=== PATIENT | female | born 1945 | race Caucasian/White ===

== ENCOUNTER 2019-02-14 09:55 | Outpatient (CLI) | payer MEDICARE, SELFPAY ==
[2019-02-14 10:20] LABS: HCT 35.7 % (36.0-46.0); HGB 11.3 g/dL (12.0-15.5); Mean Corp. HGB Concentration 31.7 g/dL (32.0-36.0); Mean Corpuscular Hemoglobin 29.5 pg (27.0-33.0); Mean Corpuscular Volume 93.2 fL (80-95); Mean Platelet Volume 10.3 fL (8.0-11.0); Platelet Count 160 x1000/uL (130-400); RBC 3.83 m/cumm (4.00-5.20); RBC Distribution Width 13.8 % (11.7-14.6); White Blood Cell Count 8.05 k/cumm (4.4-10.8)
[2019-02-14 10:34] LABS: Anion Gap 12.6 mmol/L (3-11); BUN 21 mg/dL (7-18); CO2 23.4 mmol/L (21.0-32.0); Calcium 9.6 mg/dL (8.5-10.1); Chloride 102 mmol/L (98-107); Cholesterol 212 mg/dL (50-200); Glucose 265 mg/dL (70-100); HDL Cholesterol 42 mg/dL (40-60); LDL CHOLESTEROL 140 mg/dL (<100); Potassium 4.7 mmol/L (3.5-5.1); Sodium 138 mmol/L (136-145); Triglyceride 287 mg/dL (30-150)
== END 2019-02-14 10:15 ==
PROVIDERS: PCP Specialist/Technologist Athletic Trainer; Visit Provider Specialist/Technologist Athletic Trainer
DX: E78.5 Hyperlipidemia, unspecified (principal); E11.9 Type 2 diabetes mellitus without complications; D64.9 Anemia, unspecified; I10 Essential (primary) hypertension
CPT/HCPCS: 36415; 80048; 80061; 83721; 85027

== ENCOUNTER 2020-11-24 09:35 | Outpatient (REF) | payer MEDICARE, SELFPAY ==
[2020-11-24 15:43] LABS: HCT 31.9 % (36.0-46.0); HGB 9.6 g/dL (11.2-15.7); MCHC 30.1 % (32.0-36.0); MCV 89.6 fL (80-95); MPV 10.6 fL (8.0-11.0); Platelet Count 203 10^3/uL (130-400); RBC 3.56 10^6/uL (3.93-5.22); RDW 14.6 % (11.7-14.6); RDW-SD 47.8 fL; WBC 8.34 10^3/uL (4.4-10.8)
[2020-11-24 16:25] LABS: Hemoglobin A1C 8.1 % (<5.7)
[2020-11-24 16:33] LABS: Anion Gap 9.8 mmol/L (3-11); BUN 21 mg/dL (7-18); CO2 26.2 mmol/L (21.0-32.0); CREATININE 1.1 mg/dL (0.55-1.02); Calcium 9.6 mg/dL (8.5-10.1); Calculated LDL 68 mg/dL (<100); Chloride 104 mmol/L (98-107); Cholesterol 144 mg/dL (<200); Estimated GFR 48.16 (mL/min/1.73m2); Glucose 168 mg/dL (74-106); HDL Cholesterol 50 mg/dL (40-60); Potassium 4.4 mmol/L (3.5-5.1); Sodium 140 mmol/L (136-145); Triglyceride 133 mg/dL (<150)
== END 2020-11-24 09:36 | disposition home or self-care (01) ==
LOC: NCHCN 09:35
PROVIDERS: PCP Specialist/Technologist Athletic Trainer; Visit Provider Nurse Practitioner Family
DX: D64.9 Anemia, unspecified (principal); I10 Essential (primary) hypertension; E78.5 Hyperlipidemia, unspecified
CPT/HCPCS: 80048; 80061; 85027; 83036

== ENCOUNTER 2021-03-17 02:34 | Outpatient (CLI) | payer MEDICARE, SELFPAY ==
[2021-03-17 10:57] LABS: Source Nasal/Nares
[2021-03-17 13:25] LABS: COVID-19 PCR Negative (Negative)
== END 2021-03-17 02:35 | disposition home or self-care (01) ==
PROVIDERS: PCP Specialist/Technologist Athletic Trainer; Visit Provider Nurse Practitioner
DX: Z20.822 Contact with and (suspected) exposure to COVID-19 (principal); Z01.818 Encounter for other preprocedural examination
CPT/HCPCS: 87635

== ENCOUNTER 2021-05-07 17:30 | Outpatient (REF) | payer MEDICARE, SELFPAY ==
[2021-05-07 19:19] LABS: CREATININE 1.4 mg/dL (0.55-1.02); Estimated GFR 36.46 (mL/min/1.73m2)
== END 2021-05-07 17:31 | disposition home or self-care (01) ==
LOC: NCHCN 17:30
PROVIDERS: PCP Specialist/Technologist Athletic Trainer; Visit Provider Nurse Practitioner Family
DX: C76.0 Malignant neoplasm of head, face and neck (principal)
CPT/HCPCS: 82565

== ENCOUNTER 2021-07-12 01:33 | Inpatient (IN) | payer MEDICARE, SELFPAY ==
[2021-07-12] VITALS (60 sets, daily range): BP systolic 112–219; BP diastolic 61–131; PULSE 80–115; RESP 4–45; TEMP 36.6–37.1; O2SAT 91–100
--- NOTE | 2021-07-12 01:15 | RT.EKG_ITS ---
APPROVED REPORT Exam: Resting ECG Reason for Exam: SOB Patient Location: E HR:98 bpm ECG Measurements Heart Rate 98 AXIS AR 167 P 69 QRSd 74 QRS 69 QT 356 T 51 QTc 457 Conclusion Sinus rhythm...normal P axis, V-rate 60- 99 Probable left atrial enlargement...P >50mS, <-0.10mV V1 Normal [place] No acute ST changes No STEMI
--- NOTE | 2021-07-12 01:46 | ED.GENADUL_ITS ---
Discharge Plan Disposition Patient Disposition: [facility] INPATIENT Condition: Poor Discharge Details Clinical Impression: Acute dyspnea, Pleural effusion, Anemia Primary Care Provider: Cameron Gaffney ED Provider: Laci Carrington [facility] Meds and New Rx's Prescriptions: No Action glipizide 10 mg Tablet 10 mg PO BID RF: 0 metoprolol succinate 100 mg Tablet Extended Release 24 Hr 100 mg PO DAILY RF: 0 citalopram 20 mg Tablet 30 mg PO DAILY RF: 0 simvastatin 20 mg Tablet 20 mg PO DAILY RF: 0 metformin 1,000 mg Tablet 1,000 mg PO BID RF: 0 Medical Decision Making Puzzling case in this older patient with history of squamous cell carcinoma of the scalp now presenting with difficulty breathing and what appears to be stridor as opposed to wheezing. No history of smoking or lung problems. reporting dyspnea with exertion for at least a couple of weeks. There is no report of fever or cough. Patient denies pain. Nothing obvious on exam in the neck but given the apparent stridor consider airway obstruction possibly from external source as patient denies throat pain, cough, choking. Does not strike me as allergic in nature given the intermittent episodes. Will establish IV and check labs, obtain EKG, CT of neck and chest, and treat stridor with racemic epi. Patient symptoms improved after racemic epinephrine. Laboratory studies significant for elevated white count with marked anemia. D-dimer positive but history from does not suggest PE. D-dimer likely elevated from other source. Troponin negative. Glucose elevated with history of diabetes. BNP elevated 1677 with no prior history of CHF or heart problems. CT scan of the neck shows enlarged left thyroid lobe with some deviation of the trachea but no significant compression. Chest CT showed bilateral effusions, groundglass opacit ies, increased interstitial markings of unclear etiology. Covid testing is pending the patient is immunized and denies fever or cough. Case discussed with hospitalist. Will assume PUI for now. We will also send procalcitonin. No antibiotics at this point. Lasix given interstitial markings and pleural effusions. Admit to hospital for further evaluation and management. Medical Records Medical records reviewed: Yes I reviewed the patient's medical records. Lab Data Lab results reviewed: Yes I reviewed the patient's lab results. ECG Data Attestation: I personally reviewed and interpreted this ECG (s) as follows: Prior ECG tracings: not available for review Interpretation: see EKG HPI General Mode of arrival: EMS . Date/Time Provider Initiated Documentation: 07/12/21 01:45 . Limitations to Documentation: physical limitation (dyspnea) . Information obtained by: patient, family, EMS and old records reviewed . HPI Narrative: Patient presents to ED with difficulty breathing. Patient initially states occurred over the course of today. Once is in room, he states patient has had intermittent and increasing episodes of shortness of breath with exertion for a few weeks now. Patient is undergoing radiation therapy for a squamous cell carcinoma removed from the scalp. She is not undergoing any chemotherapy. Lesion had been removed at [facility] earlier this year. She denies any history of smoking, asthma, shortness of breath. She denies any chest pain. She has no known coronary disease but does have diabetes, hypertension, hypercholesterolemia. She denies fever or cough. She has had some increased leg swelling but denies any leg pain and extend bilateral. She was treated with DuoNeb, albuterol, steroids in route and was feeling better. Now started to have difficulty breathing again. Related Data Home Medications Medication Instructions Recorded Confirmed citalopram 30 mg PO DAILY 07/12/21 07/12/21 glipizide 10 mg PO BID 07/12/21 07/12/21 metformin 1,000 mg PO BID 07/12/21 07/12/21 metoprolol succinate 100 mg PO DAILY 07/12/21 07/12/21 simvastatin 20 mg PO DAILY 07/12/21 07/12/21 Allergies Allergy/AdvReac Type Severity Reaction Status Date / Time No Known Allergies Allergy Unverified 07/12/21 04:13 Review of Systems Narrative: Unable to obtain due to respiratory difficulty [facility] Medical History (Updated 07/12/21 @ 05:48 by Laci Carrington MD) Breast cancer Diabetes mellitus HTN (hypertension) Hypercholesterolemia Squamous cell cancer of scalp and skin of neck Surgical History (Updated 07/12/21 @ 01:56 by Laci Carrington MD) S/P breast lumpectomy S/P skin and subcutaneous tissue surgery Social History Smoking risk assessment performed?: No Do you feel safe at home: Yes Do you feel safe in your relationship?: Yes Exam Narrative Exam Narrative: Const: Obese female in mild to moderate respiratory distress. HEENT: NC/AT. Normal facial exam. Eyes: Normal conjunctiva and sclera. Neck: Supple. Trachea appears midline but patient with short/thick neck. Lungs: Lungs sound clear but she has upper airway expiratory stridor. Cor: RRR without murmur/gallop. Good radial pulses. GI: Soft. NT/ND Neuro: A+O x 3. Normal speech, mentation. Cranial nerves II - XII grossly intact. No gross motor or sensory deficit. Ext: No C/C. 1+ BLE edema. No calf tenderness. Skin: Warm and dry without rash. Critical Care Time Critical Care Time Critical Care Time: Yes Total Critical Care Time: 45 Attestation: Upon my evaluation, this patient had a high probability of imminent or life- threatening deterioration, which required my direct attention, intervention, and personal management. I have personally provided 45 minutes of critical care time exclusive of time spent on separately billable procedures. Time includes review of laboratory data, radiology results, discussion with consultants, and monitoring for potential decompensation. Interventions were performed as documented above.
--- NOTE | 2021-07-12 02:07 | NUR.NOTE ---
Two unsuccessful attempts at IV starts in [facility].Nursing Note:
[2021-07-12] MEDS: EPINEPHrine for Inhalation 0.5 ML VIAL UPD (02:30)
--- NOTE | 2021-07-12 02:30 | DI.CT_ITS ---
Exam(s) CT NECK CHEST W EXAM: CT NECK CHEST W CLINICAL HISTORY: stridor/SOB TECHNIQUE: COMPARISON: No exams were available for comparison FINDINGS: CT SCAN SOFT TISSUES OF THE NECK WITH IV CONTRAST: Visualized paranasal sinuses are clear. No significant findings in the nasopharynx, oropharynx, and hypopharynx nor at the level of the vocal cords. The parotid and submandibular glands appear unremarkable. Thyroid gland: Abnormal. There is gross enlargement of the left thyroid lobe. This measures 4.5 cm AP by 4.5 cm wide by 5.5 cm craniocaudal. Enhancement in the lay enlarged left lobe is heterogeneous . The opposite-right thyroid lobe exhibits normal size as does most of the isthmus. The enlarged le ft thyroid lobe slightly deviates the trachea towards the opposite-right side as well as deviating th e left common carotid artery towards the left. However, this enlarged left lobe does not appear to b e invading surrounding structures and tissue planes. There is no significant lymphadenopathy in the neck and supraclavicular regions. CT SCAN OF THE CHEST WITH IV CONTRAST: INTERPRETATION IS LIMITED BY MOTION ARTIFACT Lungs: There are moderate-sized bilateral pleural effusions, right slightly larger than left. Mild and patchy ground-glass infiltrates. There is volume loss in the basal segments of both lower lobes due to the pleural effusions. Difficult to assess the trachea and mainstem bronchi due to the amount of respiratory motion artifact. Mediastinum: There is no obvious hilar nor mediastinal adenopathy. No axillary adenopathy. No supra clavicular adenopathy. Cardiac: Heart size upper normal. There is no pericardial effusion. Caliber of the thoracic aorta i s within normal limits. There is no dissection. Other: There are no adrenal masses. There is a small partially included cyst in the upper pole of th e left kidney which measures approximately 1 cm diameter. This is not completely included in the fie ld of view of this chest study. Osseous: No significant osseous lesions. No compression fractures. IMPRESSION: 1. Grossly enlarged left thyroid lobe with heterogeneous internal echotexture. Recommend follow-up t hyroid ultrasound. No obvious lymphadenopathy in the neck. 2. Interpretation lung ochoa is difficult because of motion artifact, however, there appear to be camp btle infiltrates. Also bilateral pleural effusions are noted of moderate size, right slightly larger than left. 3. No intrathoracic adenopathy noted. 4. Other findings as above.
[2021-07-12] MEDS: Sodium Chloride 0.9% for Inhalation 15 ML VIAL (02:31)
[2021-07-12 02:33] LABS: Absolute Basophil Count 0.05 10^3/uL (0.0-0.2); Absolute Eosinophil Count 0.09 10^3/uL (0.0-0.7); Absolute Lymphocyte Count 0.99 10^3/uL (1.2-3.4); Basophils % 0.3; Eosinophils % 0.5; HCT 27.6 % (36.0-46.0); HGB 7.6 g/dL (11.2-15.7); Immature Grans % 0.6; Lymphocytes % 5.7; MCH 22.1 pg (27.0-33.0); MCHC 27.5 % (32.0-36.0); MCV 80.2 fL (80-95); MPV 9.5 fL (8.0-11.0); Monocytes % 2.3; Neutrophils % 90.6; Nucleated RBC 0 %; Platelet Count 300 10^3/uL (130-400); RBC 3.44 10^6/uL (3.93-5.22); RDW 17.5 % (11.7-14.6); RDW-SD 50.7 fL
[2021-07-12 02:40] LABS: Absolute Neutrophil Count 15.67 10^3/uL (1.2-6.7)
[2021-07-12 02:41] LABS: Hypochromasia 2+; Microcytosis 1+
[2021-07-12 02:51] LABS: ALT 26 U/L (14-59); AST 19 U/L (15-37); Albumin 3.2 g/dL (3.4-5.0); Alkaline Phosphatase 148 U/L (46-116); Anion Gap 9.3 mmol/L (3-11); BUN 27 mg/dL (7-18); Bilirubin, Total 0.4 mg/dL (0.2-1.0); CO2 26.7 mmol/L (21.0-32.0); CREATININE 1.2 mg/dL (0.55-1.02); Calcium 9.3 mg/dL (8.5-10.1); Chloride 101 mmol/L (98-107); Estimated GFR 43.56 (mL/min/1.73m2); Glucose 391 mg/dL (74-106); Magnesium 1.9 mg/dL (1.8-2.4); NT-proBNP 1677 pg/mL (<300); Potassium 4.5 mmol/L (3.5-5.1); Sodium 137 mmol/L (136-145)
[2021-07-12 02:52] LABS: Troponin I < 0.05 ng/mL (<0.06)
[2021-07-12 03:05] LABS: D-Dimer 1069 ng/mlFEU (<500)
--- NOTE | 2021-07-12 03:58 | NUR.NOTE ---
To CT per cart with upstream biomanufacturing technician.Nursing Note:
--- NOTE | 2021-07-12 04:18 | NUR.NOTE ---
Returns from DINursing Note:
[2021-07-12] MEDS: Omnipaque 350 MG/ML 100 ML BTL IJ (04:32)
[2021-07-12 05:21] LABS: Source Nasal/Nares
--- NOTE | 2021-07-12 05:24 | DI.VRAD_ITS ---
PROCEDURE INFORMATION: Exam: CT Neck With Contrast Exam date and time: 07/12/2021 2:33 AM Age: 75 years old Clinical indication: Shortness of breath; Other: Stridor/sob; Additional info: Undergoing radiation therapy to scalp for squamous TECHNIQUE: Imaging protocol: Computed tomography images of the neck with contrast. 3D rendering (Not supervised by radiologist): MIP and/or 3D reconstructed images were created by the technologist. COMPARISON: No relevant prior studies available. FINDINGS: Nasopharynx: Unremarkable. Oropharynx: Unremarkable. No significant tonsillar enlargement. Hypopharynx: Unremarkable. Larynx: Unremarkable. Normal epiglottis. Retropharyngeal space: Unremarkable. Submandibular/Parotid glands: Normal. Glands are normal in size. Thyroid: Normal. No enlarged or calcified nodules. Lymph nodes: Unremarkable. No lymphadenopathy. Trachea: Prominent left lobe thyroid gland measures up to 4.8 by 4 cm and deviates the trachea to the right however does not significantly narrow the caliber of the trachea. Lungs: Unremarkable as visualized. Bones/joints: Unremarkable. No acute fracture. Soft tissues: Unremarkable. No significant soft tissue swelling. IMPRESSION: Prominent left lobe thyroid gland measures up to 4.8 by 4 cm and deviates the trachea to the right however does not significantly narrow the caliber of the trachea. PROCEDURE INFORMATION: Exam: CT Chest With Contrast; Diagnostic Exam date and time: 07/12/2021 2:33 AM Age: 75 years old Clinical indication: Shortness of breath; Other: Stridor/sob; Additional info: Undergoing radiation therapy to scalp for squamous TECHNIQUE: Imaging protocol: Diagnostic computed tomography of the chest with contrast. 3D rendering (Not supervised by radiologist): MIP and/or 3D reconstructed images were created by the technologist. COMPARISON: No relevant prior studies available. FINDINGS: Lungs: Patchy scattered ground-glass infiltrates may reflect micro atelectasis. Nonspecific pneumonia not excluded in the correct clinical setting. Septal thickening noted most evident at the lung bases may reflect interstitial edema. Pleural spaces: Moderate right and small to moderate left pleural effusion Heart: Unremarkable. No cardiomegaly. No pericardial effusion. Aorta: Unremarkable. No aortic aneurysm. Lymph nodes: Unremarkable. No enlarged lymph nodes. Bones/joints: Unremarkable. No acute fracture. Soft tissues: Extensive ductal calcifications noted right breast. Left breast not ideally visualized. Would recommend comparison with most recent mammography as initial follow-up. IMPRESSION: 1. Patchy scattered ground-glass infiltrates may reflect micro atelectasis. Nonspecific pneumonia not excluded in the correct clinical setting. 2. Septal thickening noted most evident at the lung bases may reflect interstitial edema. 3. Extensive ductal calcifications noted right breast. Left breast not ideally visualized. Would recommend comparison with most recent mammography as initial follow-up. Dictated and Authenticated by: Cameron Stevens MD. Ordering:MEHUL Aguero MD
--- NOTE | 2021-07-12 05:27 | NUR.NOTE ---
Patient spouse leaves for home. Patient resting with HOB elevated. Lights dimmed for comfort. Call light in reach.Nursing Note:
--- NOTE | 2021-07-12 05:44 | NUR.NOTE ---
Lab called to process additional ordersNursing Note:
--- NOTE | 2021-07-12 05:54 | W.PM.HP.N ---
Date of service: 07/12/21 Time of Service: 05:54 Assessment and Plan Assessment and plan (1) Acute CHF: Status: Acute Assessment and plan: Monitor on tele. Diurese, monitoring Cr, I/Os, daily weights. Low sodium diet. Check echo, venous dopplers. Unfortunately, her CT chest w/ contrast done in the ED does not clearly answer the question of PE. (2) Leucocytosis: Status: Acute Assessment and plan: No clear sign of infection. Procalcitonin is negative. Suspect steroid induced leucocytosis. Monitor off of steroids. No abx at this time. (3) Pleural effusion: Status: Acute Assessment and plan: Bilateral. Diurese - as above (4) Anemia: Status: Chronic Assessment and plan: Acute on chronic, partially dilutional. Heme negative in the ED. Check anemia studies. (5) Diabetes mellitus: Status: Chronic Assessment and plan: Hold oral agents. Cover with SSI (6) HTN (hypertension): Status: Chronic Assessment and plan: Continue home regimen (7) Hypercholesterolemia: Status: Chronic Assessment and plan: continue home statin (8) Squamous cell cancer of scalp and skin of neck: Status: Acute Assessment and plan: Nursing will inquire from home health re dressing changes (9) Abnormal finding on breast imaging: Status: Acute Assessment and plan: S/p R breast lumpectomy. Calcifications seen on CT imaging in ED. WIll need outpatient follow up with mammography. (10) DVT prophylaxis: Status: Acute Assessment and plan: hold chemical DVT ppx in light of anemia. TEDS/SCDs (11) Discharge planning issues: Status: Acute Assessment and plan: Full code History of Present Illness History of Present Illness Chief Complaint: shortness of breath Narrative: Ms Medrano is a 75 year old female with PMHx of squamous cell carcinoma of the scalp s/p excision/flap and currently receiving radiation therapy, as well as h/o breast cancer s/p lumpectomy, NIDDM2, hypertension, hyperlipidemia, and a thyroid nodule/goiter, who was brought in for [facility] ED by ambulance for shortness of breath. The patient had stated to the ED that the shortness of breath began yesterday, but her reminded her of the VILL[place] going on for several weeks. The patient notes leg edema x several days and admits to dietary indiscretion for salt. In the ED, she has been on 2-3 L of O2 by AK since arrival, currently saturating 98%. The patient was found to have a stridor and her difficulty breathing responded more to racemic epinephrine than to bronchodilators. Her labs have revealed a leucocytosis, worsening anemia with H/H of 7.6/27.6, down from 9.6/31.9 on 11/24/20 and an elevated proBNP. Her CT neck/chest showed a goiter which displaces but does not compress the trachea. Her CT chest shows groundglass opacities (PNA vs micro atelectasis), interstitial edema, bilateral pleural effusion, and extensive ductal calcifications of the right breast. She states that she has been feeling better since being diuresed in the ED. Hospitalist admission was requested. Review of Systems All systems reviewed & are unremarkable except as noted in HPI and below PFSH Medical History (Updated 07/12/21 @ 07:55 by Morena Orellana MD) Breast cancer Diabetes mellitus Goiter HTN (hypertension) Hypercholesterolemia Squamous cell cancer of scalp and skin of neck Surgical History (Updated 07/12/21 @ 01:56 by Laci Carrington MD) S/P breast lumpectomy S/P skin and subcutaneous tissue surgery Social History Smoking risk assessment performed?: No Do you feel safe at home: Yes Do you feel safe in your relationship?: Yes Meds Allergies and Home Medications Allergies Allergy/AdvReac Type Severity Reaction Status Date / Time No Known Allergies Allergy Unverified 07/12/21 04:13 Home Medications Medication Instructions Recorded Confirmed Type citalopram 30 mg PO DAILY 07/12/21 07/12/21 History glipizide 10 mg PO BID 07/12/21 07/12/21 History metformin 1,000 mg PO BID 07/12/21 07/12/21 History metoprolol succinate 100 mg PO DAILY 07/12/21 07/12/21 History simvastatin 20 mg PO DAILY 07/12/21 07/12/21 History Exam Narrative Exam Narrative: General: Pleasant elderly female, bald, does have increased work of breathing, but is able to complete sentences, A&Ox3 Neurological: A&Ox3, no focal deficits Psychiatric: Midly anxious Skin: Scalp graft appears to be healing well; dressing top of sary c/d/i HEENT: Atraumatic, EOMI, MMM, clear oropharynx, no submandibular or cervical lymphadenopathy, thyroid abnormality seen on CT cannot be appreciated visually on exam, no JVD Cardiovascular: RRR, mildly tachycardic, no m/r/g Lungs: Diminished breath sounds at B bases, but does sound somewhat wet in the mid-lung region Gastrointestinal: soft, nontender,nondistended Genitourinary: deferred Extremities: 2+ pitting edema BLE's, 2+ pedal pulses B, no clubbing/cyanosis Results Imaging Additional studies: CT neck: Prominent left lobe thyroid gland measures up to 4.8 by 4 cm and deviates the trachea to the right however does not significantly narrow the caliber of the trachea. CT chest: 1. Patchy scattered ground-glass infiltrates may reflect micro atelectasis. Nonspecific pneumonia not excluded in the correct clinical setting. 2. Septal thickening noted most evident at the lung bases may reflect interstitial edema. 3. Extensive ductal calcifications noted right breast. Left breast not ideally visualized. Would recommend comparison with most recent mammography as initial follow-up. Also, moderate right and small to moderate left pleural effusion. EKG: SR, HR 98, no acute ischemia Labs Result diagrams: 07/12/21 02:20 07/12/21 02:20 Labs: Laboratory Results - last 24 hr 07/12/21 07/12/21 07/12/21 02:20 02:20 02:20 WBC 17.30 H RBC 3.44 L Hgb 7.6 L Hct 27.6 L MCV 80.2 MCH 22.1 L MCHC 27.5 L RDW 17.5 H Plt Count 300 MPV 9.5 Immature Gran % 0.6 Neutrophils % 90.6 Lymphocytes % 5.7 Monocytes % 2.3 Eosinophils % 0.5 Basophils % 0.3 Nucleated RBC % 0 Absolute Neutrophils 15.67 H Absolute Lymphocytes 0.99 L Absolute Monocytes 0.40 Absolute Eosinophils 0.09 Absolute Basophils 0.05 RBC Morphology See Below Hypochromasia 2+ Microcytosis 1+ D-Dimer 1069 H Sodium 137 Potassium 4.5 Chloride 101 Carbon Dioxide 26.7 Anion Gap 9.3 BUN 27 H Creatinine 1.2 H Estimated GFR/1.73 m2 43.56 Glucose 391 H Calcium 9.3 Magnesium 1.9 Total Bilirubin 0.4 AST 19 ALT 26 Alkaline Phosphatase 148 H Troponin I < 0.05 NT-Pro-B Natriuret Pep 1677 H Total Protein 8.0 Albumin 3.2 L COVID-19 Source 07/12/21 04:50 WBC RBC Hgb Hct MCV MCH MCHC RDW Plt Count MPV Immature Gran % Neutrophils % Lymphocytes % Monocytes % Eosinophils % Basophils % Nucleated RBC % Absolute Neutrophils Absolute Lymphocytes Absolute Monocytes Absolute Eosinophils Absolute Basophils RBC Morphology Hypochromasia Microcytosis D-Dimer Sodium Potassium Chloride Carbon Dioxide Anion Gap BUN Creatinine Estimated GFR/1.73 m2 Glucose Calcium Magnesium Total Bilirubin AST ALT Alkaline Phosphatase Troponin I NT-Pro-B Natriuret Pep Total Protein Albumin COVID-19 Source Nasal/Nares Last Vital Signs Temp 37.1 C 07/12/21 01:35 Pulse 92 H 07/12/21 05:46 Resp 25 H 07/12/21 05:46 BP 180/72 H 07/12/21 05:46 Pulse Ox 98 07/12/21 05:46
[2021-07-12] MEDS: Furosemide 40 MG/4 ML VIAL IVP ×3 (05:59→16:49)
[2021-07-12 06:15] LABS: COVID-19 PCR Negative (Negative)
[2021-07-12 06:24] LABS: FREE T4 1.07 ng/dL (0.76-1.46); TSH 3.03 uIU/mL (0.36-3.74)
[2021-07-12 07:02] LABS: Procalcitonin < 0.1 ng/mL
[2021-07-12] MEDS: Normal Saline Flush 10 ML SYR IVP ×2 (09:32→16:49)
[2021-07-12] MEDS: Pantoprazole 40 MG VIAL IVP (09:33)
[2021-07-12] MEDS: Citalopram 20 MG TAB 30 MG PO (09:33)
[2021-07-12] MEDS: Metoprolol CR 100 MG TABCR PO (09:34)
[2021-07-12] MEDS: Simvastatin 20 MG TAB PO (09:34)
--- NOTE | 2021-07-12 09:58 | PDOC.CMIN ---
- If Service Date Differs Date of service: 07/12/21 Time of Service: 09:58 Care Management Initial Assess REASON FOR HOSPITALIZATION:: Acute CHF, Leucocytosis, Pleural effusion, Anemia PAST MEDICAL HISTORY/PAST SURGICAL HISTORY:: Medical History (Updated 07/12/21 @ 07:55 by Morena Orellana MD). Breast cancer. Diabetes mellitus. Goiter. HTN (hypertension). Hypercholesterolemia. Squamous cell cancer of scalp and skin of neck. Surgical History (Updated 07/12/21 @ 01:56 by Laci Carrington MD). S/P breast lumpectomy. S/P skin and subcutaneous tissue surgery PREVIOUS FUNCTIONAL STATUS/SOCIAL/FAMILY SUPPORTS:: Arlene lives in [place], [place] with her . She has not driven since her scalp surgery 4 months ago. Her is supportive of her healthcare needs and transports her to all her doctors appointments. Arlene currently has radiation at [facility] in [facility]. Her last appointment is scheduled for tomorrow morning at 0800, which will not work if she remains inpatient. CM will call [facility] in the morning and see if appointment can be rescheduled for a later date and/or time. CURRENT FUNCTIONAL STATUS:: Arlene was lying in bed when CM met with her. She was pleasant and easily engaged in conversation. She is scheduled for her last radiation treatment tomorrow at 0800 at [facility] and will need help changing that appointment time. She is hopeful she can stop in for radiation after she is discharged. Arlene also shares that she has a lot of medical debt despite having Medicare and asks if she can speak to anyone in entry level financial analyst. CM will make a referral to [facility] and continue to support discharge planning needs. ADVANCE DIRECTIVES:: None on file Has patient been provided with info about the portal/API?: Yes Did the patient sign up for the portal?: No CODE STATUS:: Full Code INSURANCE COVERAGE / FINANCIAL ISSUES:: Medicare PRIMARY CARE PHYSICIAN:: Cameron Gaffney POTENTIAL DISCHARGE NEEDS:: Referral to [facility] placed and recommend she speak to patient assistance at [facility] PATIENT/FAMILY EDUCATION NEEDS:: Review discharge instruction, limitations and plan to follow up with community providers. ask me three. TRANSPORTATION:: Via private vehicle with PLAN:: Anticipate Arlene will discharge home via private vehicle with family when medically cleared. Arlene will follow up with her PCP and discharge plan of care. CM will continue to follow discharge planning needs.
[2021-07-12 10:06] LABS: Glucose 428 mg/dL (74-106)
[2021-07-12] MEDS: Insulin Aspart 300 UNITS/3 ML PEN SC ×4 (10:22→21:54)
--- NOTE | 2021-07-12 11:54 | PT.INNT ---
PT Notes Visit Reasons: ACUTE CHF,PNEUMONIA,ANEMIA Patient declines PT consultation today, stating that she is just too tired. Will attempt consultation in the morning.
[2021-07-12 12:54] LABS: Glucose 409 mg/dL (74-106)
[2021-07-12] MEDS: Insulin Aspart 300 UNITS/3 ML PEN 10 UNITS SC (13:12)
[2021-07-12] MEDS: Insulin Glargine 300 UNITS/3 ML PEN 10 UNITS SC (21:55)
[2021-07-13] VITALS (10 sets, daily range): BP systolic 131–162; BP diastolic 75–110; PULSE 62–103; RESP 16–22; TEMP 36.3–36.9; O2SAT 92–97
--- NOTE | 2021-07-13 | DI.US_ITS ---
Exam(s) US EXTREMITY VENOUS BI EXAM: US EXTREMITY VENOUS BI CLINICAL HISTORY: edema BLE's TECHNIQUE: Grayscale, color, and doppler imaging of the deep venous system of both lower extremities was performed. COMPARISON: No exams were available for comparison FINDINGS: There is no evidence of intraluminal thrombus and there is normal compression and augmentation demons trated within the common femoral veins, femoral veins, and popliteal veins of both lower extremities. In the calves the interrogated veins also exhibit normal compression/ augmentation properties. The greater saphenous veins also appear patent as do the saphenofemoral junctions bilaterally.. IMPRESSION: 1. No ultrasound evidence of DVT in either lower extremity. DATA REPOSITORY:
[2021-07-13 07:20] LABS: Abs Immature Grans 0.09 10^3/uL (0.0-0.06); Absolute Basophil Count 0.03 10^3/uL (0.0-0.2); Absolute Eosinophil Count 0.08 10^3/uL (0.0-0.7); Absolute Lymphocyte Count 2.16 10^3/uL (1.2-3.4); Absolute Monocyte Count 0.84 10^3/uL (0.1-0.8); Absolute Neutrophil Count 12.58 10^3/uL (1.2-6.7); Basophils % 0.2; Eosinophils % 0.5; HCT 24.5 % (36.0-46.0); Immature Grans % 0.6; Lymphocytes % 13.7; MCH 22.2 pg (27.0-33.0); MCHC 28.2 % (32.0-36.0); MCV 78.8 fL (80-95); MPV 9.9 fL (8.0-11.0); Monocytes % 5.3; Neutrophils % 79.7; Nucleated RBC 0 %; Platelet Count 278 10^3/uL (130-400); RBC 3.11 10^6/uL (3.93-5.22); RDW 17.7 % (11.7-14.6); RDW-SD 50.7 fL; WBC 15.79 10^3/uL (4.4-10.8)
[2021-07-13 07:26] LABS: HGB 6.9 g/dL (11.2-15.7)
[2021-07-13 07:43] LABS: Iron 19 ug/dL (50-170); Total Iron Binding Capacity 301 ug/dL (250-450); Transferrin Sat 6 % (15-50)
[2021-07-13 08:03] LABS: Anion Gap 7.4 mmol/L (3-11); BUN 35 mg/dL (7-18); CO2 31.6 mmol/L (21.0-32.0); CREATININE 1.4 mg/dL (0.55-1.02); Calcium 9.7 mg/dL (8.5-10.1); Chloride 100 mmol/L (98-107); Estimated GFR 36.46 (mL/min/1.73m2); Ferritin 29 ng/mL (8-252); Folate 12.3 ng/mL (8.6-20.0); Glucose 175 mg/dL (74-106); Magnesium 1.9 mg/dL (1.8-2.4); Potassium 3.9 mmol/L (3.5-5.1); Sodium 139 mmol/L (136-145); Vitamin B12 300 pg/mL (193-986)
--- NOTE | 2021-07-13 08:24 | NUR.NOTE ---
Nursing Note: This RN called med-surg unit in this hospital on 07/13/2021 at 0825 and relayed that the patients COVID test came back negative
[2021-07-13] MEDS: Pantoprazole 40 MG VIAL IVP (09:03)
[2021-07-13] MEDS: Normal Saline Flush 10 ML SYR IVP ×2 (09:04→16:34)
[2021-07-13] MEDS: Furosemide 40 MG/4 ML VIAL IVP ×2 (09:04→16:34)
[2021-07-13] MEDS: Metoprolol CR 100 MG TABCR PO (09:05)
[2021-07-13] MEDS: Insulin Aspart 300 UNITS/3 ML PEN SC ×2 (09:05→12:01)
[2021-07-13] MEDS: Citalopram 20 MG TAB 30 MG PO (09:05)
[2021-07-13] MEDS: Simvastatin 20 MG TAB PO (09:05)
--- NOTE | 2021-07-13 09:53 | CMPROGNOTE_ITS ---
- If Service Date Differs Date of service: 07/13/21 Time of Service: 09:53 Care Management Progress Note S/O: Arlene was sitting up in bed when CM met with her. She is feeling good and having a good day. Arlene has concerns about her medical debt. CM gave pt financial assistance forms for [facility] and [facility]. In addition, Arlene met with RAMIREZ over the phone this morning to discuss insurance options. Arlene's last radiation appointment will be tomorrow at 0730 at [facility]. Her appointment will need to be rescheduled if she remains inpatient. CM continues to support. A: Arlene is a 75 year old female admitted to [facility] on 07/12/21 for Acute CHF, pneumonia, Anemia P: Anticipate Arlene will discharge home via private vehicle with family when medically cleared. Arlene will follow up with her PCP and discharge plan of care. CM will continue to follow discharge planning needs.
--- NOTE | 2021-07-13 10:04 | W.INDIABCONS ---
Date of service: 07/13/21 Time of Service: 10:04 Diabetes Inpatient Consult DESCRIPTION/ASSESSMENT: Ms. Wilder is admitted for SOB, VILLANUEVA. She is getting diuresed with lasix. Weight has gone down 10kg possibly unless one of the weights is inaccurate. Her BMI is 34.7kg/m2 c/w class 1 obesity. She does not take medications for diabetes at home. She is on Lantus and correction insulin here. Blood sugars coming down but still above target. Eating well on CHO consistent, heart healthy diet. INTERVENTION: Visited with Ms. Wilder about her diabetes. She says she knows what to do but doesn't always do it. She was very teary when I came in as she is concerned about why she is here in the hospital. I told her I would be sure to visit with her again before she leaves and we can review carbohydrate counting which may help her include more foods into her daily life which may help with her adherence on a regular basis. PLAN: Will review carbohydrate counting with Ms. Wilder prior to discharge. Will follow weight, PO, and blood sugars. Time Spent in Nutritional Counseling and Treatment: 5 minutes
[2021-07-13] MEDS: Normal Saline 500 ML 100 ML IV (12:16)
--- NOTE | 2021-07-13 14:16 | PHA.REVIEW ---
Pharmacy Admission Review - Admission Clinical Review (Last Updated 07/12/21 @ 06:03 by Morena Orellana MD) Leucocytosis (Acute) Acute CHF (Acute) Discharge planning issues (Acute) DVT prophylaxis (Acute) Abnormal finding on breast imaging (Acute) Acute dyspnea (Acute) Pleural effusion (Acute) Squamous cell cancer of scalp and skin of neck (Acute) No Known Allergies Allergy (Unverified 07/12/21 04:13) Resuscitation Status Full Code Height 5 ft 6.14 in Weight 97.8 kg - Renal Dosing Renal Dosing: BUN 35 mg/dL (7-18) H 07/13/21 06:30 Creatinine 1.4 mg/dL (0.55-1.02) H 07/13/21 06:30 Medications needing adjustments: Reviewed (Crcl ~39.7 mL/min using adjusted body weight. Current meds okay.) - Anticoagulation Anticoagulation: Hgb 6.9 g/dL (11.2-15.7) L* 07/13/21 06:30 Hct 24.5 % (36.0-46.0) L 07/13/21 06:30 Plt Count 278 10^3/uL (130-400) 07/13/21 06:30 Creatinine 1.4 mg/dL (0.55-1.02) H 07/13/21 06:30 DVT Prophylaxis: Reviewed (Chemical prophylaxis held due to anemia per H&P.) Therapeutic Anticoagulation: N/A - Opiate Usage Evaluate Pain Scale/Pains Meds: N/A - Relevant Labs Sodium 139 mmol/L (136-145) 07/13/21 06:30 Potassium 3.9 mmol/L (3.5-5.1) 07/13/21 06:30 Chloride 100 mmol/L (98-107) 07/13/21 06:30 Magnesium 1.9 mg/dL (1.8-2.4) 07/13/21 06:30 Electrolytes, C-Reactive P, ESR: Reviewed - DM Control DM Control: Glucose 175 mg/dL (74-106) H D 07/13/21 06:30 Finger Stick Blood Glucose 279 Finger Stick Blood Glucose 279 Finger Stick Blood Glucose 279 Finger Stick Blood Glucose 234 Finger Stick Blood Glucose 234 Finger Stick Blood Glucose 234 Insulin Dosing: Reviewed (Scheduled insulin glargine and sliding scale aspart ordered.) - Heart Failure/NJ Heart Failure/NJ: Troponin I < 0.05 ng/mL (<0.06) 07/12/21 02:20 NT-Pro-B Natriuret Pep 1677 pg/mL (<300) H 07/12/21 02:20 EF%, ÁNGEL's, B-Blockers, Diuretics: Reviewed - BP Control BP Control: Blood Pressure 146/77 Blood Pressure 131/75 Blood Pressure 136/77 Blood Pressure 144/86 Blood Pressure 162/110 Blood Pressure 159/80 If elevated: Reviewed (BP has been elevated most of admission so far. Has metoprolol and furosemide ordered.) - Qtc Review If Elevated: N/A (QTc 457 on admission.) - IV to PO Switch IV Medications: Reviewed - Home Meds Home Med List reviewed: Intervened (For patients >60 years of age, the maximum recommended dose of citalopram is 20 mg/day due to the risk of QT prolongation, will mention to provider.) Relevent Home Meds Not ordered & why?: glipizide, metformin - Current meds Current Medication Order Review: Reviewed - Comments Comments/Follow Ups: Watch BP, BG, SCr, H/H, and for med changes (renal dose adjustments, IV to PO).
--- NOTE | 2021-07-13 15:50 | PDOC.CMDIS ---
- If Service Date Differs Date of service: 07/13/21 Time of Service: 15:50 LACE Index Scoring Tool - Questions: Length of Stay (in days): 2 Acuity (Admit via E.D.?): Yes Comorbidities: Diabetes w/o Complication, Metastatic Solid Tumor E.D. Visits: 1 - Answers: Total Score: 11 Risk of Readmission: High Risk Care Management Discharge Reason for Hospitalization: Acute CHF, Leucocytosis, Pleural effusion, Anemia Discharge Plan: Discharge home with resumption of HH RN services via private vehicle with . Follow up with community providers and discharge plan of care. Patient/Family Education Needs: Review discharge instructions, limitations and plan to follow up with community providers. ask me three. Services Needed at Discharge: Home Health Care Services (Resumption HH RN Services)
--- NOTE | 2021-07-13 15:56 | DI.US_ITS ---
APPROVED REPORT EXAM: Comprehensive 2D, Doppler, and color-flow Echocardiogram Patient Location: In-Patient Room/Bed: 218 Exchange Operator: Robina Mina RDCS (AE) Indications: Acute CHF, HTN Other Information Study Quality: Fair. Technically limited study due to body habitus, inability to position patient. Conclusion Normal left ventricular wall thickness and chamber size. Estimated ejection fraction is 55 to 60%. Wall motion is normal Normal right ventricular size and systolic function Mildly dilated left atrium. Right atrium is normal in size Sclerotic trileaflet aortic valve without stenosis or regurgitation Moderate mitral annular calcification. Mild mitral regurgitation Normal tricuspid valve with trace regurgitation. Right ventricular systolic pressure could not be es timated Normal pulmonic valve with trace regurgitation Wall motion Left Ventricle The left ventricle is normal size. The left ventricular systolic function is normal. The left ventric ular ejection fraction is within the normal range. There is normal left ventricular wall thickness. T here is normal LV segmental wall motion. There is no ventricular septal defect visualized. LVEF is 55 -60%. Right Ventricle Right ventricle is grossly normal in size. Right ventricular systolic function is grossly normal. The RVSP is 42. mmHg. Atria Left atrium is mildly dilated. The right atrium size is normal. The interatrial septum is intact with no evidence for an atrial septal defect. Aortic Valve Aortic valve is calcified. Aortic valve is trileaflet. No hemodynamically significant valvular aortic stenosis. No aortic regurgitation is present. Mitral Valve Moderate mitral annular calcification. No evidence of mitral valve stenosis. Mild mitral regurgitatio n. Tricuspid Valve Tricuspid valve is grossly normal in structure and function. There is no tricuspid valve stenosis. Tr lindsey tricuspid regurgitation. Pulmonic Valve Pulmonic valve is not well visualized. There is no pulmonic valvular stenosis. Trace pulmonic regurgi tation. Great Vessels The aortic root is normal in size. The ascending aorta is normal in size. Aortic arch is normal in ca liber. The IVC collapses <50% with inspiration. Pericardium There is no pericardial effusion. 2D Dimensions IVSD d PLAX 1.05 cm F: 0.6-1.0 LV Vol A2C d MOD 88.2 mL LVPW d PLAX 1.06 cm F: 0.6 - 1.0 LV Vol A4C d MOD 94.1 mL LVID d PLAX 4.40 cm F: 3.8 - 5.2 LA vol/ BSA A2C s A-L 28.4 mL/m2 LVDs 3.20 cm F: 2.2 - 3.5 LA vol/ BSA A4C s A-L 33.4 mL/m2 Ao Root d 2.06 cm F: 2.7 - 3.3 LA Vol/ BSA Biplane s A-L 31.6 mL/m2 RA Area A4C 11.90 cm2 LA Area A4C s MOD 23.21 cm2 RA Vol/ BSA A4C s A-L 12.8 mL/m2 LA Area A2C s MOD 20.81 cm2 Ao Asc Diam d 3.12 cm F: 2.3 - 3.1 LV EF A4C MOD 50.0 % LV EF Teichholz 52.8 % LV EF A2C MOD 52.5 % LVEF (Stroud's) 50.27 % F: 54 - 74 LV EF Biplane MOD 50.3 % LV Volume 67.30 mL F: 46 - 106 SV 46.14 mL LV Volume Index 31.44 mL/m2 F: 29 - 61 SV Index 21.54 mL/m2 LV Vol Biplane MOD 91.8 mL FS 26.90 % M-Mode TAPSE 2.61 cm (M/F) >1.7 LV Diastology MV E' medial 0.104 (>0.07 m/s) E/A Ratio 1.3 LV E/e MED 11.45 (<14) MV E Vmax 1.19 (0.4-1.3 m/s) MV E' lateral 0.108 (>0.1 m/s) MV A Vmax 0.95 (0.4-1.3 m/s) LV E/e LAT 11.05 (<14) MV E/A Ratio 1.21 MV E/E' medial 11.47 MV E/E' lateral 11.08 Aortic Valve LVOT Area 2.60 cm2 AoV Area Vmax 1.50 cm2 LVOT Vmax 1.20 m/s AoV Area/ BSA (Vmax) 0.70 cm2/m2 LVOT Mean Saulo. 0.90 m/s TESHA Mean Saulo. 1.52 cm2 LVOT Peak Grad 5.8 mmHg TESHA Mean Saulo. Index 0.71 cm2/m2 LVOT Mean Grad 3.5 mmHg LVOT VTI 0.278 m LVOT Diam s 1.80 cm AoV Vmax 2.09 m/s Velocity Ratio 0.57 AoV Mean Saulo. 1.53 m/s AoV Peak Grad 17.5 mmHg LVOT SV 72.47 mL AoV Mean Grad 10.3 mmHg AoV VTI 0.485 m AoV Area VTI 1.49 cm2 AoV Area/ BSA (VTI) 0.70 cm/m2 Mitral Valve MV DT 170 (160-240 msec) MR Vmax 4.84 m/s MV PHT 49 msec MR VTI 1.549 m MV Area PHT 4.47 cm2 MR Peak Grad 93.7 mmHg MV VTI 0.308 m MR Mean Grad 79.2 mmHg MV VTI Annulus 0.296 m MV Area VTI 2.27 (4.0-6.0 cm2) Pulmonary Valve PV Vmax 1.15 (0.5-1.5 m/s) RVOT Peak Gr. 2.03 mmHg PV Peak Grad 5.3 mmHg RVOT Mean Gr. 0.90 mmHg PV Mean Grad 2.8 mmHg RVOT VTI 0.136 m PV VTI 0.223 m RVOT Vmax 0.71 m/s Tricuspid Valve TR Peak Grad 34.4 mmHg TR Vmax 2.93 m/s RA Pressure 8.00 mmHg RVSP (TR) 42.4 mmHg
--- NOTE | 2021-07-14 09:00 | NT_ITS ---
Date of service: 07/14/21 Time of Service: 09:00 PT Notes Visit Reasons: ACUTE CHF,PNEUMONIA,ANEMIA Patient was discharged from the hospital on 05/12/2021. No skilled PT services were provided for this admission. Thank you for the opportunity to participate in the care of this patient. Eneida Butcher PT, DPT, CLT [facility] [place], [place]
--- NOTE | 2021-07-14 15:37 | W.PM.DS.N ---
Date of service: 07/13/21 Time of Service: 12:38 DS: Diagnosis Discharge Diagnosis (1) Acute CHF: Status: Acute (2) Leucocytosis: Status: Acute (3) Pleural effusion: Status: Acute (4) Anemia: Status: Chronic (5) Diabetes mellitus: Status: Chronic (6) HTN (hypertension): Status: Chronic (7) Hypercholesterolemia: Status: Chronic (8) Squamous cell cancer of scalp and skin of neck: Status: Acute (9) Abnormal finding on breast imaging: Status: Acute (10) DVT prophylaxis: Status: Acute (11) Discharge planning issues: Status: Acute Discharge Plan Disposition Patient Disposition: HOME Condition: Poor Discharge Details Reason For Visit: ACUTE CHF,PNEUMONIA,ANEMIA Admit Date/Time: 07/12/21 05:44 Admit Provider: Morena Orellana Attending Provider: Morena Orellana Primary Care Provider: Cameron Gaffney Hospital Course Hospital Course: Ms Medrano is a 75 year old female with PMHx of squamous cell carcinoma of the scalp s/p excision/flap and currently receiving radiation therapy, as well as h/o breast cancer s/p lumpectomy, NIDDM2, hypertension, hyperlipidemia, and a thyroid nodule/goiter, who was brought in for [facility] ED by ambulance for shortness of breath. The patient had stated to the ED that the shortness of breath began yesterday, but her reminded her of the VILLANUEVA going on for several weeks. The patient notes leg edema x several days and admits to dietary indiscretion for salt. In the ED, she has been on 2-3 L of O2 by NC since arrival, currently saturating 98%. The patient was found to have a stridor and her difficulty breathing responded more to racemic epinephrine than to bronchodilators. Her labs have revealed a leucocytosis, worsening anemia with H/H of 7.6/27.6, down from 9.6/31.9 on 11/24/20 and an elevated proBNP. Her CT neck/chest showed a goiter which displaces but does not compress the trachea. Her CT chest shows groundglass opacities (PNA vs micro atelectasis), interstitial edema, bilateral pleural effusion, and extensive ductal calcifications of the right breast. She states that she has been feeling better since being diuresed in the ED. Leukocytosis likely d/t the steroid administered in the ED. WBC count decreased the following day. Procalcitonin was negative. With IV lasix her shortness of air and pedal edema resolved. Her hemoglobin did decrease to 6.9. She was transfused a unit of RBCs. She will continue lasix 20mg po every other day. Low Na diet stressed. She may need additional medication to manage her diabetes but she is very open about not being compliant with a low carb diet. Will resume home health with the addition of PT She has a PCP appt scheduled for 07/24. CBC on 07/15. Home Meds and New Rx's Prescriptions: New furosemide [Lasix] 20 mg tablet 20 mg PO Q OTHER DAY Qty: 15 RF: 0 Continued glipizide 10 mg Tablet 10 mg PO BID RF: 0 metoprolol succinate 100 mg Tablet Extended Release 24 Hr 100 mg PO DAILY RF: 0 citalopram 20 mg Tablet 30 mg PO DAILY RF: 0 simvastatin 20 mg Tablet 20 mg PO DAILY RF: 0 metformin 1,000 mg Tablet 1,000 mg PO BID RF: 0 Discharge Instructions Instructions: Low-Sodium Diet (DC) Stand Alone Forms: Nursing Discharge Form Referrals: Cameron Gaffney [Primary Care Provider] - (follow up as scheduled with PCP on 07/24) Activity:: Activity as Tolerated Equipment/Supplies:: No Equipment Needed Diet:: low carb and low Na Discharge Orders Discharge Orders: Discharge Order (Routine); Ordered 07/13/21 Ordered By: Mc Yu Other Ambulatory Orders: Complete Blood Count w/Diff (Routine) Location: None Selected Ordered By: Mc Yu Discharge Data Discharge Date/Time-TO BE ENTERED AT DEPARTURE: 07/13/21 17:04 DS: Summary Time Spent with Patient providing and/or coordinating discharge services: Greater than 30 minutes Status at Discharge Functional status at discharge: independent ambulation Overall status at discharge: patient is progressing back to baseline Mental Status: mental status grossly normal Speech and Movement: speech and movement normal Mood: congruent mood Affect: normal affect Exam Narrative Exam Narrative: General: Pleasant elderly female, bald, does have increased work of breathing, but is able to complete sentences, A&Ox3 Neurological: A&Ox3, no focal deficits Psychiatric: Midly anxious Skin: Scalp graft appears to be healing well; dressing top of sary c/d/i HEENT: Atraumatic, EOMI, MMM, clear oropharynx, no submandibular or cervical lymphadenopathy, thyroid abnormality seen on CT cannot be appreciated visually on exam, no JVD Cardiovascular: RRR, mildly tachycardic, no m/r/g Lungs: Diminished breath sounds at B bases but clear. Gastrointestinal: soft, nontender,nondistended Genitourinary: deferred Extremities: 2+ pitting edema BLE's, 2+ pedal pulses B, no clubbing/cyanosis Psych Mental Status: mental status grossly normal Speech and Movement: speech and movement normal Mood: congruent mood Affect: normal affect DS: Data Vitals/I&O Vitals and I&O: Vital Signs Temperature 36.4 C L 07/13/21 14:48 Temperature Source Tympanic 07/13/21 12:05 Pulse 80 07/13/21 14:48 Pulse Rhythm Regular 07/13/21 05:33 Pulse 88 07/12/21 06:32 Respiratory Rate 16 07/13/21 14:48 Respiratory Effort Non-Labored 07/13/21 15:58 Respiratory Depth Normal 07/13/21 15:58 Respiratory Pattern Normal 07/13/21 15:58 Blood Pressure 145/77 H 07/13/21 14:48 Blood Pressure Mean 82 07/12/21 06:32 Blood Pressure Position Sitting 07/12/21 01:35 Pulse Oximetry 93 07/13/21 14:48 Oxygen Delivery Method Room Air 07/13/21 14:48 Oxygen Flow Rate 0 07/13/21 14:48 Pain Level 0 07/13/21 08:31 Intake & Output 07/13/21 07/14/21 07/14/21 23:59 11:59 23:59 Intake Total 292 / 292 Balance 292 / -1008 Intake: Blood Product 292 / 292 Rbc Leuko Reduced Unit 292 / 292 [id number] [facility] Medical History (Updated 07/12/21 @ 07:55 by Morena Orellana MD) Breast cancer Diabetes mellitus Goiter HTN (hypertension) Hypercholesterolemia Squamous cell cancer of scalp and skin of neck Surgical History (Updated 07/12/21 @ 01:56 by Laci Carrington MD) S/P breast lumpectomy S/P skin and subcutaneous tissue surgery Social History Smoking risk assessment performed?: No Do you feel safe at home: Yes Do you feel safe in your relationship?: Yes
== END 2021-07-13 17:04 | disposition home or self-care (01) | DRG 293 ==
LOC: ER 05:54 → MS 06:40
PROVIDERS: Family Medicine; Admitting Provider Internal Medicine; Emergency Provider Emergency Medicine; PCP Specialist/Technologist Athletic Trainer; Visit Provider Internal Medicine
DX: I11.0 Hypertensive heart disease with heart failure (principal); I50.9 Heart failure, unspecified; D72.829 Elevated white blood cell count, unspecified; D64.9 Anemia, unspecified; E11.9 Type 2 diabetes mellitus without complications; E78.00 Pure hypercholesterolemia, unspecified; R92.1 Mammographic calcification found on diagnostic imaging of breast; C44.42 Squamous cell carcinoma of skin of scalp and neck; Z85.3 Personal history of malignant neoplasm of breast; E04.9 Nontoxic goiter, unspecified; Z20.822 Contact with and (suspected) exposure to COVID-19
CPT/HCPCS: 36415; 36416; 70491; 80048; 80053; 82947; 82962; 84145; 86850; 86900; 86901; 86920; 87635; 93005; 93306; 96372; 96374; 96375; 96376; 99291; 71260; 82607; 82728; 82746; 83540; 83550; 83735; 83880; 84439; 84443; 84484; 85025; 85379; 93010; 93970; 94640; 99223; 99239; J1940; J3490; P9016

== ENCOUNTER 2021-07-16 04:08 | Outpatient (CLI) | payer MEDICARE, SELFPAY ==
[2021-07-16 14:42] LABS: Abs Immature Grans 0.07 10^3/uL (0.0-0.06); Absolute Basophil Count 0.05 10^3/uL (0.0-0.2); Absolute Eosinophil Count 0.47 10^3/uL (0.0-0.7); Absolute Lymphocyte Count 1.89 10^3/uL (1.2-3.4); Absolute Monocyte Count 0.69 10^3/uL (0.1-0.8); Absolute Neutrophil Count 6.85 10^3/uL (1.2-6.7); Basophils % 0.5; Eosinophils % 4.7; HCT 30.1 % (36.0-46.0); HGB 8.5 g/dL (11.2-15.7); Immature Grans % 0.7; Lymphocytes % 18.9; MCH 22.1 pg (27.0-33.0); MCHC 28.2 % (32.0-36.0); MCV 78.4 fL (80-95); Monocytes % 6.9; Neutrophils % 68.3; Nucleated RBC 0 %; RBC 3.84 10^6/uL (3.93-5.22); RDW 17.2 % (11.7-14.6); RDW-SD 48.7 fL; WBC 10.02 10^3/uL (4.4-10.8)
[2021-07-16 15:00] LABS: Diff Comment Diff Reviewed
[2021-07-16 15:01] LABS: Hypochromasia 2+; Microcytosis 2+; Polychromasia Present
== END 2021-07-16 04:09 | disposition home or self-care (01) ==
PROVIDERS: PCP Specialist/Technologist Athletic Trainer; Visit Provider Family Medicine
DX: D64.9 Anemia, unspecified (principal)
CPT/HCPCS: 36415; 85025

== ENCOUNTER 2021-11-19 09:46 | Outpatient (REF) | payer MEDICARE, SELFPAY ==
[2021-11-19 12:42] LABS: HCT 29.2 % (36.0-46.0); HGB 8.4 g/dL (11.2-15.7); MCH 23.9 pg (27.0-33.0); MCHC 28.8 % (32.0-36.0); MPV 10.8 fL (8.0-11.0); Platelet Count 204 10^3/uL (130-400); RBC 3.52 10^6/uL (3.93-5.22); RDW 17.2 % (11.7-14.6); RDW-SD 51.9 fL; WBC 6.76 10^3/uL (4.4-10.8)
[2021-11-19 12:48] LABS: Anion Gap 11.8 mmol/L (3-11); BUN 22 mg/dL (7-18); CO2 23.2 mmol/L (21.0-32.0); CREATININE 1.2 mg/dL (0.55-1.02); Calcium 9.2 mg/dL (8.5-10.1); Chloride 104 mmol/L (98-107); Estimated GFR 43.45 (mL/min/1.73m2); Glucose 250 mg/dL (74-106); Potassium 4.8 mmol/L (3.5-5.1); Sodium 139 mmol/L (136-145)
[2021-11-19 13:13] LABS: Vitamin D 25 Total 8.1 ng/mL (30-100)
== END 2021-11-19 09:47 | disposition home or self-care (01) ==
LOC: NCHCN 09:46
PROVIDERS: PCP Nurse Practitioner Family; Visit Provider Nurse Practitioner Family
DX: E11.9 Type 2 diabetes mellitus without complications (principal); I10 Essential (primary) hypertension; F41.8 Other specified anxiety disorders; E55.9 Vitamin D deficiency, unspecified
CPT/HCPCS: 80048; 82306; 85027

== ENCOUNTER 2021-12-02 01:52 | Outpatient (CLI) | payer MEDICARE, SELFPAY ==
--- NOTE | 2021-12-02 | DI.CT_ITS ---
Exam(s) CT NECK W EXAM: CT NECK W CLINICAL HISTORY: SQUAMOUS CELL CA,C44.92,ASSESS FOR RECURRENCE,S/P SURGERY AND TREATMENT. TECHNIQUE: Imaging Protocol: Axial computed tomography images with coronal and sagittal reformatted images were created and reviewed. CONTRAST MATERIAL: Intravenous: Omnipaque 350 Contrast volume:40 mL COMPARISON: CT CT NECK CHEST W from 07/12/[address] HEAD WO/W from 12/02/2021 FINDINGS: Orbits and orbital soft tissues: Within normal limits. Visualized paranasal sinuses: There is opacification of a few ethmoid air cells. The remaining visu alized paranasal sinuses and mastoid air cells are clear. Nasopharynx: Within normal limits. Oropharynx: Within normal limits. Hypopharynx: Within normal limits. Larynx: Within normal limits. Retropharyngeal space: Within normal limits. Parotids/submandibular: Within normal limits. Thyroid gland: There is been increase in size of the left thyroid mass. It currently measures 5.2 t ransverse by 4.6 AP by 6.0 craniocaudad. This compares to 4.4 x 4.4 x 5.0 cm. It displaces the trac hea to the right. The right thyroid lobe is unremarkable. Lymphadenopathy: There is scattered lymph nodes seen along the level one to level three all measurin g less than 8 mm in short axis diameter which are physiologic in nature. Trachea: Tracheal deviation to the right secondary to the large left thyroid mass. Lung apices: Within normal limits. Bones: Within normal limits. Carotids/Jugular: Within normal limits. Soft tissues: Within normal limits. IMPRESSION: 1. Interval increase in size of left thyroid mass. 2. No other evidence of a cervical mass or adenopathy. RADIATION DOSE DELIVERED: Total DLP Total DLP DATA REPOSITORY: All CT scans at this facility are submitted to the National Radiology Data Registry (NRDR) Dose Index Registry (DIR) with the [employer] (ACR). RADIATION OPTIMIZATION: All CT scans at this facility use at least one of these dose optimization te chniques: automated exposure control; mA and/or kV adjustment per patient size (includes targeted exa ms where dose is matched to clinical indication); or iterative reconstruction.
--- NOTE | 2021-12-02 15:15 | DI.CT_ITS ---
Exam(s) CT HEAD WO/W EXAM: CT HEAD WO/W CLINICAL HISTORY: SQUAMOUS CELL CA,C44.92,ASSESS RECURRENCE,S/P SURG AND TREATMENT. TECHNIQUE: Imaging Protocol: Axial computed tomography images with coronal and sagittal reformatted images were created and reviewed. CONTRAST MATERIAL: Intravenous: Omnipaque 350 Contrast volume:60 mL COMPARISON: No priors for comparison. FINDINGS: Ventricles and Extra axial spaces: Normal in size and morphology for the patient's age. Hemorrhage: None. Cerebral parenchyma: There are areas of decreased attenuation in the white matter consistent with sma ll vessel ischemic disease. 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 No acute territor ial infarct is seen. No intracranial masses. Enhancement: No suspicious enhancement. [place]: Unremarkable. Midline shift: None. Brainstem/Cerebellum: Normal. Calvarium: Normal. Visualized Paranasal sinuses/Mastoids: Clear. Soft tissues: Several well-circumscribed nodules are seen in the subcutaneous tissues in the scalp. The largest measures 0.9 x 1.4 cm. IMPRESSION: 1. No intracranial mass or enhancing lesion to suggest intracranial metastatic disease. 2. Multiple subcutaneous nodules in the scalp. These may be benign lesions but metastatic disease ca nnot be excluded. Please correlate clinically. Biopsy may be considered for further evaluation. RADIATION DOSE DELIVERED: 1834.35 mGy.cm Total DLP DATA REPOSITORY: All CT scans at this facility are submitted to the National Radiology Data Registry (NRDR) Dose Index Registry (DIR) with the [employer] (ACR). RADIATION OPTIMIZATION: All CT scans at this facility use at least one of these dose optimization te chniques: automated exposure control; mA and/or kV adjustment per patient size (includes targeted exa ms where dose is matched to clinical indication); or iterative reconstruction.
[2021-12-02] MEDS: Omnipaque 350 MG/ML 100 ML BTL IJ (15:23)
== END 2021-12-02 02:12 ==
LOC: DI 01:53
PROVIDERS: PCP Nurse Practitioner Family; Visit Provider Preventive Medicine Undersea and Hyperbaric Medicine
DX: C44.42 Squamous cell carcinoma of skin of scalp and neck (principal); Z98.890 Other specified postprocedural states; R22.0 Localized swelling, mass and lump, head; E07.89 Other specified disorders of thyroid
CPT/HCPCS: 70491; 70470; 82565; J3490

== ENCOUNTER 2022-02-09 16:23 | Outpatient (REF) | payer MEDICARE, SELFPAY | END 2022-02-09 16:24 | disposition home or self-care (01) | LOC: NCHCN 16:23 | PROVIDERS: PCP Nurse Practitioner Family; Visit Provider Nurse Practitioner Family | DX: L29.8 Other pruritus; N89.8 Other specified noninflammatory disorders of vagina | CPT/HCPCS: 87480; 87510; 87660 ==

== ENCOUNTER 2022-02-18 19:43 | Outpatient (REF) | payer MEDICARE, SELFPAY ==
[2022-02-18 15:26] LABS: FREE T4 1.03 ng/dL (0.76-1.46); TSH 1.24 uIU/mL (0.36-3.74)
[2022-02-18 15:54] LABS: Hemoglobin A1C 9.8 % (<5.7)
[2022-02-18 16:08] LABS: Vitamin D 25 Total 13.8 ng/mL (30-100)
== END 2022-02-18 19:44 | disposition home or self-care (01) ==
LOC: NCHCN 19:43
PROVIDERS: PCP Nurse Practitioner Family; Visit Provider Nurse Practitioner Family
DX: E11.9 Type 2 diabetes mellitus without complications (principal); E04.9 Nontoxic goiter, unspecified; E55.9 Vitamin D deficiency, unspecified
CPT/HCPCS: 82306; 83036; 84439; 84443

== ENCOUNTER 2022-05-07 11:29 | Inpatient (IN) | payer MEDICARE, SELFPAY ==
[2022-05-07] VITALS (36 sets, daily range): BP systolic 118–162; BP diastolic 56–92; PULSE 76–144; RESP 11–31; TEMP 36.4–37; O2SAT 94–100
--- NOTE | 2022-05-07 11:30 | RT.EKG_ITS ---
APPROVED REPORT Exam: Resting ECG Reason for Exam: Dyspnea Patient Location: E HR:109 bpm ECG Measurements Heart Rate 109 AXIS MN [id number] P [id number] QRSd 73 QRS 47 QT 334 T 40 QTc 450 Conclusion Atrial fibrillation...? atrial activity Ventricular premature complex...V complex w/ short R-R interval Nonspecific repol abnormality, diffuse leads...ST dep, T flat/neg, ant/lat/inf
--- NOTE | 2022-05-07 11:57 | ED.GENADUL_ITS ---
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 She saw her pcp today and was found to be in afib which is new for her and she states they did a finger stick check of her blood count and was told she was anemic and was sent here. She denies fevers, chills, abdomen pain, chest pain, lightheadedness, dark stools. She arrives in afib with rates ranging from 110-120 and does appear pale. She has diminished breath sounds at the bases bilaterally, no wheezing, soft nontender abdomen. On bedside u/s she has normal appearing ef but is beating irregularly, no visible pericardial effusion, does have b lines in both lung ochoa. On rectal exam stool is brown and guiac negative. She states she has required transfusion in the past and thinks it was due to iron deficiency. Given her history, new onset afib, will obtian labs including cbc, cmp, troponin and also cxr. cxr shows mild interstitial prominence, no infiltrates,cbc shows hemoglobin of 5.7. She consents to transfusion, was given 2.5mg IVP lopressor for afib with rates in the 130's which she tolerated well. Discussed with hospitalist who accepts for admission Differential Diagnosis Differential Diagnosis: anemia, afib, electrolyte abnormality Medical Records Medical records reviewed: Yes I reviewed the patient's medical records. Imaging Data Radiologic Study: Attestation: I personally reviewed and interpreted this imaging study as follows: Imaging: X-Ray Radiologist's impression: FINDINGS: LUNGS: Mildly increased interstitial changes.? No over pulmonary edema.? No pneumothorax.? Question tiny right pleural effusion HEART: Mildly enlarged AORTA: Calcification at arch. BONES: Unremarkable for age.? Soft tissues: Unremarkable. IMPRESSION: Question tiny right pleural effusion.? Cardiomegaly. Lab Data Lab results reviewed: Yes I reviewed the patient's lab results. ECG Data Attestation: I personally reviewed and interpreted this ECG (s) as follows: Prior ECG tracings: available for review Interpretation: afib rate of109, no stemi HPI General Mode of arrival: ambulatory . Date/Time Provider Initiated Documentation: 05/07/22 11:30 . Limitations to Documentation: no limitations . Information obtained by: patient . History of Present Illness 76 year old F presents to the emergency department with the chief complaint of shortness of breath, described as moderate, Patient started experiencing this month(s) (1) and it has been constant. No relieving factors improve symptom(s), No exacerbating factors reported . Patient notes weakness. Patient did receive the following treatments prior to arrival, none Related Data Home Medications Medication Instructions Recorded Confirmed citalopram 20 mg tablet 30 mg PO DAILY 07/12/21 05/07/22 glipizide 10 mg tablet 10 mg PO BID 07/12/21 05/07/22 metformin 1,000 mg tablet 1,000 mg PO BID 07/12/21 05/07/22 metoprolol succinate 100 mg 150 mg PO DAILY 07/12/21 05/07/22 tablet,extended release 24 hr simvastatin 20 mg tablet 40 mg PO DAILY 07/12/21 05/07/22 aspirin 325 mg tablet 325 mg PO DAILY 05/07/22 05/07/22 chlorthalidone 25 mg tablet 12.5 mg PO DAILY 05/07/22 05/07/22 cholecalciferol (vitamin D3) 50 50 mcg PO DAILY 05/07/22 05/07/22 mcg (2,000 unit) tablet (Vitamin D3) ergocalciferol (vitamin D2) 1,250 1 cap PO DAILY 05/07/22 05/07/22 mcg (50,000 unit) capsule ferrous gluconate 324 mg (38 mg 324 mg PO BID 05/07/22 05/07/22 iron) tablet furosemide 20 mg tablet (Lasix) 40 mg PO DAILY 05/07/22 05/07/22 lisinopril 40 mg tablet 40 mg PO DAILY 05/07/22 05/07/22 mirtazapine 7.5 mg tablet 1 tab PO HS 05/07/22 05/07/22 potassium chloride 20 mEq 20 meq PO BID 05/07/22 05/07/22 tablet,extended release Allergies Allergy/AdvReac Type Severity Reaction Status Date / Time No Known Allergies Allergy Unverified 05/07/22 11:43 General Stated Complaint: SOB ZAKIA: 3 Review of Systems All systems reviewed & are unremarkable except as noted in HPI and below Constitutional Constitutional: Denies chills and Denies fever(s) Eyes Eyes: Denies loss of vision Cardiovascular Cardiovascular: Denies chest pain Respiratory Respiratory: Denies cough Gastrointestinal Gastrointestinal: Denies abdominal pain, Denies nausea and Denies vomiting Genitourinary Genitourinary: Denies dysuria Integumentary/Breasts Skin/Breast: Denies rash Neurologic Neurologic: Denies loss of vision PFSH All Active Problems (Updated 05/07/22 @ 14:52 by Patrick Medina MD) Anemia (Chronic) CHF (congestive heart failure) (Chronic) Atrial fibrillation with RVR (Acute) Atrial fibrillation (Chronic) Leucocytosis (Acute) Acute CHF (Acute) Discharge planning issues (Acute) DVT prophylaxis (Acute) Abnormal finding on breast imaging (Acute) Acute dyspnea (Acute) Pleural effusion (Acute) Anemia (Chronic) Squamous cell cancer of scalp and skin of neck (Acute) Hypercholesterolemia (Chronic) HTN (hypertension) (Chronic) Diabetes mellitus (Chronic) Medical History (Updated 05/07/22 @ 14:52 by Patrick Medina MD) Breast cancer Goiter Surgical History (Updated 07/12/21 @ 01:56 by Laci Carrington MD) S/P breast lumpectomy S/P skin and subcutaneous tissue surgery Social History Smoking/Tobacco Use Status: Never Smoking risk assessment performed?: Yes Alcohol Intake: never Drug use: Never Substance use type: does not use Do you feel safe at home: Yes Do you feel safe in your relationship?: Yes Exam Const General: no acute distress Orientation: alert HENMT Head: normal to inspection Ears: external ears normal General nose exam: external nose normal Mouth: moist mucous membranes Eyes General: appearance normal, both eyes and all related structures Neck Neck: normal visual inspection Resp Effort & Inspection: normal respiratory effort and able to speak in complete sentences Cardio Jugular venous pressure: no JVD Rhythm: abnormal rhythm GI Palpation: soft and nontender Skin General skin exam: no rashes or lesions noted Neuro General: patient alert and patient oriented x3 Extrem General: normal to inspection Psych Mental Status: mental status grossly normal Course Vital Signs Vital signs: Vital Signs Temperature 36.6 C 07/22/22 11:37 Pulse 129 H 05/07/22 11:37 Respiratory Rate 16 05/07/22 11:37 Pulse Oximetry 98 05/07/22 11:37 Temperature 36.6 C 05/07/22 11:37 Temperature Source Temporal Artery Scan 05/07/22 11:37 Pulse 129 H 05/07/22 11:37 Respiratory Rate 16 05/07/22 11:37 Respiratory Effort 05/07/22 11:44 Respiratory Depth Normal 05/07/22 11:44 Respiratory Pattern Normal 05/07/22 11:44 Blood Pressure Position Supine 05/07/22 11:37 Pulse Oximetry 98 05/07/22 11:37 Oxygen Delivery Method Room Air 05/07/22 11:37 Oxygen Flow Rate 0 05/07/22 11:37 Pain Level 0 05/07/22 11:37 Lab/Test Results Lab/Test Results: 05/07/22 11:31 Blood Blood Culture - Pending 05/07/22 11:31 Blood Blood Culture - Pending
[2022-05-07 12:15] LABS: Abs Immature Grans 0.03 10^3/uL (0.0-0.06); Absolute Basophil Count 0.02 10^3/uL (0.0-0.2); Absolute Eosinophil Count 0.04 10^3/uL (0.0-0.7); Absolute Lymphocyte Count 1.16 10^3/uL (1.2-3.4); Absolute Monocyte Count 0.47 10^3/uL (0.1-0.8); BE (Venous) -1 mmol/L (-2-3); Basophils % 0.2; Eosinophils % 0.4; HCO3 (Venous) 24 mmol/L (23-28); HCT 21.5 % (36.0-46.0); Immature Grans % 0.3; Lymphocytes % 12.4; MCH 19.6 pg (27.0-33.0); MCHC 26.5 % (32.0-36.0); MCV 74 fL (80-95); MPV 9.2 fL (8.0-11.0); Neutrophils % 81.7; O2 Sat (Venous) 75 %; Platelet Count 305 10^3/uL (130-400); RBC 2.91 10^6/uL (3.93-5.22); RDW-SD 48.3 fL; TCO2 (Venous) 23 mmol/L (24-29); WBC 9.32 10^3/uL (4.4-10.8); pCO2 (Venous) 38 mmHg (41-51); pH (Venous) 7.41 (7.31-7.41); pO2 (Venous) 42 mmHg
[2022-05-07 12:18] LABS: Source Nasal/Nares
--- NOTE | 2022-05-07 12:20 | DI.RAD_ITS ---
Exam(s) XR PORTABLE CHEST AP EXAM: XR PORTABLE CHEST AP CLINICAL HISTORY: shortness of breath TECHNIQUE: 2D digital imaging was performed. COMPARISON: CT CT NECK CHEST W from 07/12/2021 FINDINGS: LUNGS: Mildly increased interstitial changes. No over pulmonary edema. No pneumothorax. Question t iny right pleural effusion HEART: Mildly enlarged AORTA: Calcification at arch. BONES: Unremarkable for age. Soft tissues: Unremarkable. IMPRESSION: Question tiny right pleural effusion. Cardiomegaly. DATA REPOSITORY: RADIATION DOSE DELIVERED:
[2022-05-07 12:23] LABS: HGB 5.7 g/dL (11.2-15.7)
[2022-05-07 12:29] LABS: INR 1.2 (0.9-1.1); PTT Activated 27.7 sec (21.0-27.5); Prothrombin Time 12.1 sec (9.3-11.0)
[2022-05-07 12:32] LABS: Diff Comment RBC Morph Reviewed
[2022-05-07 12:33] LABS: Hypochromasia 1+; Microcytosis 1+; Polychromasia Present
[2022-05-07] MEDS: Furosemide 20 MG/2 ML VIAL IVP (12:34)
[2022-05-07 12:55] LABS: ALT 14 U/L (14-59); AST 16 U/L (15-37); Albumin 2.8 g/dL (3.4-5.0); Alkaline Phosphatase 124 U/L (46-116); Anion Gap 9.5 mmol/L (3-11); BUN 21 mg/dL (7-18); Bilirubin, Total 0.4 mg/dL (0.2-1.0); CO2 23.5 mmol/L (21.0-32.0); CREATININE 1.2 mg/dL (0.55-1.02); Calcium 9.4 mg/dL (8.5-10.1); Chloride 101 mmol/L (98-107); Estimated GFR 43.45 (mL/min/1.73m2); Glucose 219 mg/dL (74-106); Magnesium 1.8 mg/dL (1.8-2.4); NT-proBNP 4245 pg/mL (<300); Potassium 4.2 mmol/L (3.5-5.1); Sodium 134 mmol/L (136-145); Total Protein 7.6 g/dL (6.4-8.2); Troponin I < 50 ng/L (<or=60)
[2022-05-07 13:12] LABS: COVID-19 PCR Negative (Negative)
[2022-05-07 13:17] LABS: Bilirubin Negative (Negative); Blood Trace-intact (Negative); Clarity Cloudy (Clear); Glucose Negative (Negative); Ketones Negative (Negative); Leukocyte Esterase Small (Negative); Nitrite Negative (Negative); Urobilinogen 0.2 EU/dL (Up TO 0.2)
[2022-05-07 13:25] LABS: Bacteria Many HPF (Negative); C & S Indicated? Yes; Casts Negative LPF (Negative); Crystals Negative HPF (Negative); Epithelial Cells Rare HPF (Negative); Mucus Negative (Negative); Other Cells Few Transitional (Negative); RBC 0-2 HPF (0-2); WBC 20-50 HPF (0-5)
--- NOTE | 2022-05-07 13:25 | HPE_ITS ---
Date of service: 05/07/22 Time of Service: 13:25 Assessment and Plan Assessment and plan (1) Anemia: Status: Chronic Assessment and plan: stool negative for OB history of iron deficiency will transfuse 1-2 units of PRBC add iron studies. (2) Acute CHF: Status: Acute Assessment and plan: received IV lasix in the ED daily weights, I&O takes lasix 40 mg daily at home BNP 4200 echo from Jun 2021: Conclusion Normal left ventricular wall thickness and chamber size.? Estimated ejection fraction is 55 to 60%.? Wall motion is normal Normal right ventricular size and systolic function Mildly dilated left atrium.? Right atrium is normal in size Sclerotic trileaflet aortic valve without stenosis or regurgitation Moderate mitral annular calcification.? Mild mitral regurgitation Normal tricuspid valve with trace regurgitation.? Right ventricular systolic pressure could not be estimated Normal pulmonic valve with trace regurgitation (3) Diabetes mellitus: Status: Chronic Assessment and plan: A1C 9.8 in February 2022 diabetic diet with bs check ac/hs with coverage as needed. 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 Diabetes mellitus type: type 2 (4) HTN (hypertension): Status: Chronic Assessment and plan: on lisinipril, metoprolol, chlorthalidone will hold lisinopril at this time in case with need to increase BB for rate control, (5) Atrial fibrillation: Status: Chronic Assessment and plan: new diagnosis rate controlled after receiving 2.5 mg IV lopressor TSH 1.5 echo from Jun 2021: see above discussed with DR Juan History of Present Illness History of Present Illness Chief Complaint: shortness of breath Review of Systems All systems reviewed & are unremarkable except as noted in HPI and below Constitutional Constitutional: Denies fever(s) ENT Ears, Nose, Mouth, and Throat: Denies vertigo and Denies dizziness Cardiovascular Cardiovascular: Denies chest pain, Reports pedal edema (chronic), Reports dyspnea and Reports dyspnea on exertion Respiratory Respiratory: Denies chest congestion, Denies cough, Reports dyspnea, Reports dyspnea on exertion and Denies wheezing Gastrointestinal Gastrointestinal: Denies melena, Denies hematochezia, Denies diarrhea, Denies nausea, Denies vomiting and Denies hematemesis Musculoskeletal Musculoskeletal: Denies back pain and Denies arthralgias Neurologic Neurologic: Denies vertigo and Denies dizziness Allergic/Immunologic Allergic/Immunologic: Denies wheezing PFSH All Active Problems (Updated 05/07/22 @ 14:52 by Patrick Medina MD) Anemia (Chronic) CHF (congestive heart failure) (Chronic) Atrial fibrillation with RVR (Acute) Atrial fibrillation (Chronic) Leucocytosis (Acute) Acute CHF (Acute) Discharge planning issues (Acute) DVT prophylaxis (Acute) Abnormal finding on breast imaging (Acute) Acute dyspnea (Acute) Pleural effusion (Acute) Anemia (Chronic) Squamous cell cancer of scalp and skin of neck (Acute) Hypercholesterolemia (Chronic) HTN (hypertension) (Chronic) Diabetes mellitus (Chronic) Medical History (Updated 05/07/22 @ 14:52 by Patrick Medina MD) Breast cancer Goiter Surgical History (Updated 07/12/21 @ 01:56 by Laci Carrington MD) S/P breast lumpectomy S/P skin and subcutaneous tissue surgery Social History Smoking/Tobacco Use Status: Never Smoking risk assessment performed?: Yes Alcohol Intake: never Drug use: Never Substance use type: does not use Do you feel safe at home: Yes Do you feel safe in your relationship?: Yes Meds Allergies and Home Medications Allergies Allergy/AdvReac Type Severity Reaction Status Date / Time No Known Allergies Allergy Unverified 05/07/22 11:43 Home Medications Medication Instructions Recorded Confirmed Type citalopram 20 mg tablet 30 mg PO DAILY 07/12/21 05/07/22 History glipizide 10 mg tablet 10 mg PO BID 07/12/21 05/07/22 History metformin 1,000 mg tablet 1,000 mg PO BID 07/12/21 05/07/22 History metoprolol succinate 100 mg 150 mg PO DAILY 07/12/21 05/07/22 History tablet,extended release 24 hr simvastatin 20 mg tablet 40 mg PO DAILY 07/12/21 05/07/22 History aspirin 325 mg tablet 325 mg PO DAILY 05/07/22 05/07/22 History chlorthalidone 25 mg tablet 12.5 mg PO DAILY 05/07/22 05/07/22 History cholecalciferol (vitamin D3) 50 50 mcg PO DAILY 05/07/22 05/07/22 History mcg (2,000 unit) tablet (Vitamin D3) ergocalciferol (vitamin D2) 1,250 1 cap PO DAILY 05/07/22 05/07/22 History mcg (50,000 unit) capsule ferrous gluconate 324 mg (38 mg 324 mg PO BID 05/07/22 05/07/22 History iron) tablet furosemide 20 mg tablet (Lasix) 40 mg PO DAILY 05/07/22 05/07/22 History lisinopril 40 mg tablet 40 mg PO DAILY 05/07/22 05/07/22 History mirtazapine 7.5 mg tablet 1 tab PO HS 05/07/22 05/07/22 History potassium chloride 20 mEq 20 meq PO BID 05/07/22 05/07/22 History tablet,extended release Exam Const General: cooperative, comfortable, no acute distress and frail appearing Nutritional Appearance: obese Orientation: alert, awake and oriented x3 HENMT Head: other (old well healed surgical scar across top of head) Mouth: moist mucous membranes abnormal (slightly dry) Neck Neck: no JVD Resp Effort & Inspection: normal respiratory effort Auscultation: diminished lung sounds bilaterally and no wheezes Cardio Rate: regular rate Rhythm: regular rhythm GI Inspection: normal to inspection Palpation: soft Skin General skin exam: no rashes or lesions noted Neuro General: patient alert, patient awake and patient oriented x3 Extrem General: normal to inspection, full ROM and edema (lower) Laterality: bilateral Results Labs Result diagrams: 05/07/22 12:04 05/07/22 12:04 Labs: Laboratory Results - last 24 hr 05/07/22 05/07/22 05/07/22 12:04 12:04 12:04 WBC 9.32 RBC 2.91 L Hgb 5.7 L* Hct 21.5 L MCV 74 L MCH 19.6 L MCHC 26.5 L RDW 18.0 H Plt Count 305 MPV 9.2 Immature Gran % 0.3 Neutrophils % 81.7 Lymphocytes % 12.4 Monocytes % 5.0 Eosinophils % 0.4 Basophils % 0.2 Nucleated RBC % 0.0 Absolute Neutrophils 7.60 H Absolute Lymphocytes 1.16 L Absolute Monocytes 0.47 Absolute Eosinophils 0.04 Absolute Basophils 0.02 RBC Morphology See Below Polychromasia Present Hypochromasia 1+ Microcytosis 1+ PT 12.1 H INR 1.2 H APTT 27.7 H VBG pH VBG pCO2 VBG pO2 VBG HCO3 VBG Total CO2 VBG O2 Saturation VBG Base Excess Sodium 134 L Potassium 4.2 Chloride 101 Carbon Dioxide 23.5 Anion Gap 9.5 BUN 21 H Creatinine 1.2 H Estimated GFR/1.73 m2 43.45 Glucose 219 H Calcium 9.4 Magnesium 1.8 Total Bilirubin 0.4 AST 16 ALT 14 Alkaline Phosphatase 124 H Troponin I < 50 NT-Pro-B Natriuret Pep 4245 H Total Protein 7.6 Albumin 2.8 L TSH 1.50 Urine Color Urine Clarity Urine pH Ur Specific Blanchard Urine Protein Urine Ketones Urine Blood Urine Nitrite Urine Bilirubin Urine Urobilinogen Ur Leukocyte Esterase Urine Glucose COVID-19 Source SARS-CoV-2 (PCR) Patient ABO/Rh Antibody Screen Crossmatch 05/07/22 05/07/22 05/07/22 12:04 12:15 12:18 WBC RBC Hgb Hct MCV MCH MCHC RDW Plt Count MPV Immature Gran % Neutrophils % Lymphocytes % Monocytes % Eosinophils % Basophils % Nucleated RBC % Absolute Neutrophils Absolute Lymphocytes Absolute Monocytes Absolute Eosinophils Absolute Basophils RBC Morphology Polychromasia Hypochromasia Microcytosis PT INR APTT VBG pH 7.41 VBG pCO2 38 L VBG pO2 42 VBG HCO3 24 VBG Total CO2 23 L VBG O2 Saturation 75 VBG Base Excess -1 Sodium Potassium Chloride Carbon Dioxide Anion Gap BUN Creatinine Estimated GFR/1.73 m2 Glucose Calcium Magnesium Total Bilirubin AST ALT Alkaline Phosphatase Troponin I NT-Pro-B Natriuret Pep Total Protein Albumin TSH Urine Color Urine Clarity Urine pH Ur Specific [place] Urine Protein Urine Ketones Urine Blood Urine Nitrite Urine Bilirubin Urine Urobilinogen Ur Leukocyte Esterase Urine Glucose COVID-19 Source Nasal/Nares SARS-CoV-2 (PCR) Negative Patient ABO/Rh O Negative Antibody Screen NEGATIVE Crossmatch See Detail 05/07/22 13:05 WBC RBC Hgb Hct MCV MCH MCHC RDW Plt Count MPV Immature Gran % Neutrophils % Lymphocytes % Monocytes % Eosinophils % Basophils % Nucleated RBC % Absolute Neutrophils Absolute Lymphocytes Absolute Monocytes Absolute Eosinophils Absolute Basophils RBC Morphology Polychromasia Hypochromasia Microcytosis PT INR APTT VBG pH VBG pCO2 VBG pO2 VBG HCO3 VBG Total CO2 VBG O2 Saturation VBG Base Excess Sodium Potassium Chloride Carbon Dioxide Anion Gap BUN Creatinine Estimated GFR/1.73 m2 Glucose Calcium Magnesium Total Bilirubin AST ALT Alkaline Phosphatase Troponin I NT-Pro-B Natriuret Pep Total Protein Albumin TSH Urine Color Yellow Urine Clarity Cloudy Urine pH 7.0 Ur Specific [place]ard 1.020 Urine Protein Trace H Urine Ketones Negative Urine Blood Trace-intact H Urine Nitrite Negative Urine Bilirubin Negative Urine Urobilinogen 0.2 Ur Leukocyte Esterase Small H Urine Glucose Negative COVID-19 Source SARS-CoV-2 (PCR) Patient ABO/Rh Antibody Screen Crossmatch Last Vital Signs Temp 36.6 C 05/07/22 11:37 Pulse 89 05/07/22 12:32 Resp 20 05/07/22 12:32 BP 118/92 H 05/07/22 12:32 Pulse Ox 99 05/07/22 12:32
[2022-05-07] MEDS: Metoprolol 5 MG/5 ML VIAL 2.5 MG IVP (13:27)
[2022-05-07 14:10] LABS: Iron 12 ug/dL (50-170); Total Iron Binding Capacity 306 ug/dL (250-450); Transferrin Sat 4 % (15-50)
[2022-05-07] MEDS: Normal Saline Flush 10 ML SYR IVP ×2 (16:57→20:00)
[2022-05-07] MEDS: Insulin Aspart 300 UNITS/3 ML PEN SC ×2 (16:57→21:08)
[2022-05-07 17:12] LABS: Troponin I < 50 ng/L (<or=60)
[2022-05-07] MEDS: Ferrous Gluconate 324 MG TAB PO (20:00)
[2022-05-07] MEDS: Potassium Chloride 20 MEQ TABCR PO (20:00)
[2022-05-07] MEDS: Mirtazapine 15 MG TAB 7.5 MG PO (21:06)
[2022-05-08 03:40] VITALS: BP 138/81; PULSE 120; RESP 18; TEMP 36.9; O2SAT 94
[2022-05-08 04:27] VITALS: PULSE 127
[2022-05-08 07:00] VITALS: PULSE 110
[2022-05-08 07:01] VITALS: BP 149/92; PULSE 114; RESP 18; TEMP 36.8; O2SAT 98
[2022-05-08 07:42] LABS: Abs Immature Grans 0.03 10^3/uL (0.0-0.06); Absolute Basophil Count 0.02 10^3/uL (0.0-0.2); Absolute Eosinophil Count 0.15 10^3/uL (0.0-0.7); Absolute Lymphocyte Count 1.22 10^3/uL (1.2-3.4); Absolute Monocyte Count 0.59 10^3/uL (0.1-0.8); Absolute Neutrophil Count 5.99 10^3/uL (1.2-6.7); Basophils % 0.3; Eosinophils % 1.9; HCT 25.3 % (36.0-46.0); HGB 7.2 g/dL (11.2-15.7); Immature Grans % 0.4; Lymphocytes % 15.3; MCH 21.1 pg (27.0-33.0); MCHC 28.5 % (32.0-36.0); MCV 74 fL (80-95); MPV 9.5 fL (8.0-11.0); Monocytes % 7.4; Neutrophils % 74.7; Platelet Count 318 10^3/uL (130-400); RBC 3.42 10^6/uL (3.93-5.22); RDW 18.3 % (11.7-14.6); RDW-SD 48.4 fL
[2022-05-08 07:52] LABS: Anion Gap 10.3 mmol/L (3-11); BUN 20 mg/dL (7-18); CO2 23.7 mmol/L (21.0-32.0); CREATININE 1.1 mg/dL (0.55-1.02); Calcium 9.4 mg/dL (8.5-10.1); Chloride 99 mmol/L (98-107); Estimated GFR 48.04 (mL/min/1.73m2); Glucose 176 mg/dL (74-106); Sodium 133 mmol/L (136-145)
[2022-05-08 08:23] LABS: Anisocytosis 2+; Hypochromasia 2+
[2022-05-08 08:24] LABS: Diff Comment Agrees w/ Instrument; Microcytosis 1+; Polychromasia Present
[2022-05-08] MEDS: Citalopram 20 MG TAB 30 MG PO ×2 (08:50→10:11)
[2022-05-08] MEDS: Metoprolol CR 100 MG TABCR 150 MG PO (08:50)
[2022-05-08] MEDS: Insulin Aspart 300 UNITS/3 ML PEN SC ×2 (08:50→11:50)
[2022-05-08] MEDS: Chlorthalidone 25 MG TAB 12.5 MG PO (08:50)
[2022-05-08] MEDS: Potassium Chloride 20 MEQ TABCR PO (08:51)
[2022-05-08] MEDS: Ferrous Gluconate 324 MG TAB PO (08:51)
[2022-05-08] MEDS: Furosemide 20 MG TAB 40 MG PO (08:51)
[2022-05-08] MEDS: Cholecalciferol (Vitamin D3) 1,000 UNIT TAB 2000 UNITS PO (08:51)
--- NOTE | 2022-05-08 10:11 | PT.INNT ---
PT Notes Visit Reasons: Anemia,Heart Failure Patient discharged before evaluation could be completed.
[2022-05-08] MEDS: Fosfomycin Tromethamine 3 GM PACKET PO (11:46)
[2022-05-08] MEDS: IRON SUCROSE COMPLEX 300 MG in Normal Saline 250 ML 167 MG IVPB (12:02)
[2022-05-08] MEDS: Normal Saline 500 ML 100 ML IV (12:02)
--- NOTE | 2022-05-08 12:51 | W.PM.DS.N ---
Date of service: 05/08/22 Time of Service: 12:51 DS: Diagnosis Discharge Diagnosis (1) Anemia: Status: Chronic (2) Acute CHF: Status: Acute (3) Diabetes mellitus: Status: Chronic (4) HTN (hypertension): Status: Chronic (5) Atrial fibrillation: Status: Chronic Discharge Plan Disposition Patient Disposition: HOME W/HOME HEALTH SERVICE Condition: Stable Discharge Details Reason For Visit: Anemia,Heart Failure Admit Date/Time: 05/07/22 13:37 Admit Provider: Alonso Juan Attending Provider: Alonso Juan Primary Care Provider: Paula Andersanna Hospital Course Hospital Course: This is a 76 year old female with history congestive heart failure, iron deficient anemia who presents to the ED after being found to have new afib. Her work up in the ED showed a hemoglobin of 5.7 (previous was 8), she was having some shortness of breath and found to be in chf, likely from afib, she had no chest pain and 2 negative troponins. her TSH was normal at 1.5. echo was not available and she will need outpatient echocardiogram. I will defer anticoaguation with her for stroke prevention to pcp pending full evaluation for anemia, she will continue with full dose asa for now. She was diuresed with IV lasix in the ED with good effect, her lopressor was increased to 100 mg po bid from 150 daily. She will be referred to home health for close evaluation of vitals, labs to be check early next week, sooner for new or worsening symptoms. She is hemodynamically stable and requesting discharge which I think is reasonable with close follow up. Her and her both are informed and and attentive and will report issues. She will be referred to GI for anemia work up, cardiology for new afib, echo ordered. she was also found to have a UTI and received one dose of fosfomycin. she was asymptomatic. discharge discussed with DR Juan. Home Meds and New Rx's Prescriptions: Continued chlorthalidone 25 mg Tablet 12.5 mg PO DAILY ergocalciferol (vitamin D2) 1,250 mcg (50,000 unit) capsule 1 cap PO DAILY Label Comments: TAKE ONE CAPSULEPO ONCE A WEEK lisinopril 40 mg Tablet 40 mg PO DAILY mirtazapine 7.5 mg tablet 1 tab PO HS Label Comments: Take 1 tablet by mouth every night ferrous gluconate 324 mg (38 mg iron) Tablet 324 mg PO BID cholecalciferol (vitamin D3) [Vitamin D3] 50 mcg (2,000 unit) Tablet 50 mcg PO DAILY potassium chloride 20 mEq Tablet Extended Release 20 meq PO BID furosemide [Lasix] 20 mg tablet 40 mg PO DAILY aspirin 325 mg Tablet 325 mg PO DAILY glipizide 10 mg Tablet 10 mg PO BID citalopram 20 mg Tablet 30 mg PO DAILY simvastatin 20 mg Tablet 40 mg PO DAILY metformin 1,000 mg Tablet 1,000 mg PO BID Changed metoprolol succinate 100 mg Tablet Extended Release 24 Hr 100 mg PO BID Qty: 0 0RF Discontinued aspirin 325 mg Tablet 325 mg PO DAILY Discharge Instructions Instructions: Anemia (DC) Additional Instructions: have your lab drawn on Tuesday or Tuesday, May 10 or 2021 Your received one unit of packed red blood cells for your anemia. your hemoglobin is up to 7.2. Your iron was also very low at 12, you received IV iron infusion prior to discharge. you should check with your [facility] care provider if addition iron infusions will be needed. you should continue your full dose aspirin and discuss blood thinner (anticoagulation) with primary care provider for stroke prevention from atrial fibrillation. you may need further work up for your anemia before starting a blood thinner, your primary care provider will decide as this will require close monitoring. Stand Alone Forms: Nursing Discharge Form Referrals: [facility] Diagnostic Imaging [Other] (Please call Tuesday to schedule appointment) Yesica Vega MD [ [facility] STAFF PHYSICIAN] - (Please call Tuesday to make an appointment for new afib) Geovanna Anders [Primary Care Provider] - (Please call Tuesday to make a follow up appointment.) Amy Roblero MD [ [facility] STAFF PHYSICIAN] - (Please call Tuesday to make an appointment for an anemia work up) Activity:: Activity as Tolerated Equipment/Supplies:: No Equipment Needed Diet:: As Tolerated Discharge Orders Discharge Orders: Discharge Order (Routine); Ordered 05/08/22 Ordered By: Natacha No Other Ambulatory Orders: Basic Metabolic Panel (Routine) Location: None Selected Ordered By: Natacha No Complete Blood Count w/Diff (Routine) Location: None Selected Ordered By: Natacha No echocardiogram (Routine) Timeframe: 1 Week Location: None Selected Ordered By: Natacha No Discharge Data Discharge Date/Time-TO BE ENTERED AT DEPARTURE: 05/08/22 15:49 DS: Summary Time Spent with Patient providing and/or coordinating discharge services: Greater than 30 minutes Status at Discharge Functional status at discharge: independent ambulation Overall status at discharge: patient is progressing back to baseline Mental Status: mental status grossly normal Speech and Movement: speech and movement normal Mood: congruent mood Affect: normal affect Exam Const General: cooperative, comfortable, no acute distress and frail appearing Nutritional Appearance: obese Orientation: alert, awake and oriented x3 HENMT Head: other (old well healed surgical scar across top of head) Mouth: moist mucous membranes abnormal (slightly dry) Neck Neck: no JVD Resp Effort & Inspection: normal respiratory effort Auscultation: diminished lung sounds bilaterally and no wheezes Cardio Rate: regular rate GI Inspection: normal to inspection Palpation: soft Skin General skin exam: no rashes or lesions noted Neuro General: patient alert, patient awake and patient oriented x3 Extrem General: normal to inspection, full ROM and edema (lower) Laterality: bilateral Psych Mental Status: mental status grossly normal Speech and Movement: speech and movement normal Mood: congruent mood Affect: normal affect DS: Data Vitals/I&O Vitals and I&O: Vital Signs Temperature 36.8 C 05/08/22 07:01 Temperature Source Tympanic 05/08/22 07:01 Pulse 114 H 05/08/22 07:01 Pulse Rhythm Irregular 05/08/22 07:40 Pulse 126 H 05/07/22 14:02 Respiratory Rate 18 05/08/22 07:01 Respiratory Effort Non-Labored 05/08/22 07:40 Respiratory Depth Normal 05/08/22 07:40 Respiratory Pattern Normal 05/08/22 07:40 Blood Pressure 149/92 H 05/08/22 07:01 Blood Pressure Mean 83 05/07/22 14:02 Blood Pressure Position Supine 05/07/22 11:37 Pulse Oximetry 98 05/08/22 07:01 Oxygen Delivery Method Room Air 05/08/22 07:01 Oxygen Flow Rate 0 05/08/22 07:01 Pain Level 0 05/08/22 07:40 Comment 05/08/22 07:40 Intake & Output 05/07/22 05/08/22 05/08/22 23:59 11:59 23:59 Intake Total 300 / 300 360 / 361.667 1.667 / 361.667 Output Total 2650 / 2650 650 / 950 300 / 950 Balance -2350 / -2350 -290 / -588.333 -298.333 / -588.333 Weight 102.9 kg Intake: IV 1.667 / 1.667 Oral 360 / 360 Blood Product 300 / 300 Rbc Leuko Reduced Unit 300 / 300 [id number] Output: Urine 2650 / 2650 650 / 950 300 / 950 Other: Urine Color Yellow Pale Pale Yellow Urine Appearance Clear Clear Clear Cloudy Urine Odor Normal Normal None Comment Void x1 in the toilet. Voiding Methods Bedside Commode Toilet Toilet Data Completed and Pending Labs on day of discharge: Labs from last 24 hours 05/08/22 05/08/22 05/07/22 06:30 06:30 16:46 WBC 8.00 RBC 3.42 L Hgb 7.2 L Hct 25.3 L MCV 74 L MCH 21.1 L MCHC 28.5 L RDW 18.3 H Plt Count 318 MPV 9.5 Immature Gran % 0.4 Neutrophils % 74.7 Lymphocytes % 15.3 Monocytes % 7.4 Eosinophils % 1.9 Basophils % 0.3 Nucleated RBC % 0.0 Absolute Neutrophils 5.99 Absolute Lymphocytes 1.22 Absolute Monocytes 0.59 Absolute Eosinophils 0.15 Absolute Basophils 0.02 RBC Morphology See Below Polychromasia Present Hypochromasia 2+ Anisocytosis 2+ Microcytosis 1+ Sodium 133 L Potassium 4.0 Chloride 99 Carbon Dioxide 23.7 Anion Gap 10.3 BUN 20 H Creatinine 1.1 H Estimated GFR/1.73 m2 48.04 Glucose 176 H Calcium 9.4 Magnesium Iron TIBC Transferrin % Sat Total Bilirubin AST ALT Alkaline Phosphatase Troponin I < 50 NT-Pro-B Natriuret Pep Total Protein Albumin TSH Urine Color Urine Clarity Urine pH Ur Specific Lantry Urine Protein Urine Ketones Urine Blood Urine Nitrite Urine Bilirubin Urine Urobilinogen Ur Leukocyte Esterase Urine RBC Urine WBC Ur Epithelial Cells Urine Crystals Urine Bacteria Urine Casts Urine Mucus Urine Other Ur Culture Indicated? Urine Glucose SARS-CoV-2 (PCR) Patient ABO/Rh Antibody Screen Crossmatch 05/07/22 05/07/22 05/07/22 13:05 12:18 12:15 WBC RBC Hgb Hct MCV MCH MCHC RDW Plt Count MPV Immature Gran % Neutrophils % Lymphocytes % Monocytes % Eosinophils % Basophils % Nucleated RBC % Absolute Neutrophils Absolute Lymphocytes Absolute Monocytes Absolute Eosinophils Absolute Basophils RBC Morphology Polychromasia Hypochromasia Anisocytosis Microcytosis Sodium Potassium Chloride Carbon Dioxide Anion Gap BUN Creatinine Estimated GFR/1.73 m2 Glucose Calcium Magnesium Iron TIBC Transferrin % Sat Total Bilirubin AST ALT Alkaline Phosphatase Troponin I NT-Pro-B Natriuret Pep Total Protein Albumin TSH Urine Color Yellow Urine Clarity Cloudy Urine pH 7.0 Ur Specific Lantry 1.020 Urine Protein Trace H Urine Ketones Negative Urine Blood Trace-intact H Urine Nitrite Negative Urine Bilirubin Negative Urine Urobilinogen 0.2 Ur Leukocyte Esterase Small H Urine RBC 0-2 Urine WBC 20-50 H Ur Epithelial Cells Rare Urine Crystals Negative Urine Bacteria Many Urine Casts Negative Urine Mucus Negative Urine Other Few Transitional Ur Culture Indicated? Yes Urine Glucose Negative SARS-CoV-2 (PCR) Negative Patient ABO/Rh O Negative Antibody Screen NEGATIVE Crossmatch See Detail 05/07/22 05/07/22 12:04 12:04 WBC RBC Hgb Hct MCV MCH MCHC RDW Plt Count MPV Immature Gran % Neutrophils % Lymphocytes % Monocytes % Eosinophils % Basophils % Nucleated RBC % Absolute Neutrophils Absolute Lymphocytes Absolute Monocytes Absolute Eosinophils Absolute Basophils RBC Morphology Polychromasia Hypochromasia Anisocytosis Microcytosis Sodium 134 L Potassium 4.2 Chloride 101 Carbon Dioxide 23.5 Anion Gap 9.5 BUN 21 H Creatinine 1.2 H Estimated GFR/1.73 m2 43.45 Glucose 219 H Calcium 9.4 Magnesium 1.8 Iron 12 L TIBC 306 Transferrin % Sat 4 L Total Bilirubin 0.4 AST 16 ALT 14 Alkaline Phosphatase 124 H Troponin I < 50 NT-Pro-B Natriuret Pep 4245 H Total Protein 7.6 Albumin 2.8 L TSH 1.50 Urine Color Urine Clarity Urine pH Ur Specific Lantry Urine Protein Urine Ketones Urine Blood Urine Nitrite Urine Bilirubin Urine Urobilinogen Ur Leukocyte Esterase Urine RBC Urine WBC Ur Epithelial Cells Urine Crystals Urine Bacteria Urine Casts Urine Mucus Urine Other Ur Culture Indicated? Urine Glucose SARS-CoV-2 (PCR) Patient ABO/Rh Antibody Screen Crossmatch 05/07/22 13:10 Blood Blood Culture - Pending 05/07/22 12:04 Blood Blood Culture - Pending Preliminary micro results at discharge 05/07/22 13:05 Urine Culture - Preliminary Urine - Reflex from Ua Escherichia coli 05/07/22 13:10 Blood Culture - Pending Blood 05/07/22 12:04 Blood Culture - Pending Blood [facility] All Active Problems (Updated 05/07/22 @ 14:52 by Patrick Medina MD) Anemia (Chronic) CHF (congestive heart failure) (Chronic) Atrial fibrillation with RVR (Acute) Atrial fibrillation (Chronic) Leucocytosis (Acute) Acute CHF (Acute) Discharge planning issues (Acute) DVT prophylaxis (Acute) Abnormal finding on breast imaging (Acute) Acute dyspnea (Acute) Pleural effusion (Acute) Anemia (Chronic) Squamous cell cancer of scalp and skin of neck (Acute) Hypercholesterolemia (Chronic) HTN (hypertension) (Chronic) Diabetes mellitus (Chronic) Medical History (Updated 05/07/22 @ 14:52 by Patrick Medina MD) Breast cancer Goiter Surgical History (Updated 07/12/21 @ 01:56 by Laci Carrington MD) S/P breast lumpectomy S/P skin and subcutaneous tissue surgery Social History Smoking/Tobacco Use Status: Never Smoking risk assessment performed?: Yes Alcohol Intake: never Drug use: Never Substance use type: does not use Do you feel safe at home: Yes Do you feel safe in your relationship?: Yes
[2022-05-08 13:35] VITALS: PULSE 89
--- NOTE | 2022-05-08 14:03 | PDOC.HHF2F_ITS ---
Home Health Certification Home Health Certification: 1. Encounter Date and Reason I certify that Arlene Medrano was seen by Natacha No on 05/08/22 and that I had a [id number] encounter with this patient that meets the physician face to face encounter requirements. 2. Clinical Findings Supporting Skilled Need and Homebound Status I certify that home health services are medically necessary, include either intermittent fdc and/or physical/speech therapy, and that this pat ient is homebound in that absences from the home require considerable and taxing effort and are infrequent or of short duration, or are attributable to the need to receive medical care. [X] (a) Attached documentation from encounter provides clinical findings supporting skilled need and homebound status (including what assistance patient requires to leave the home). The encounter with the patient was in whole, or in part, for the following medical condition, which is the primary reason for home health care: Anemia,Heart Failure, new atrial fibrillation Halfway: routine nursing evaluation, vitals, weights, medication oversight, Physical and occupational Therapy: routine evaluation, home safety, treatment Homebound: patient is unable to safely leave the house unassisted d/t severely limiting shortness of breath and fatigue. 3. Certification and Authentication I certify that I composed the above information based on my clinical judgment relating to this patient's medical condition and, if applicable, clinical findings communicated to me by the NPP or inpatient physician who performed the Home Health Referral. All further orders will be obtained through _[facility] - PCP)
[2022-05-08] MEDS: Normal Saline Flush 10 ML SYR IVP (14:09)
--- NOTE | 2022-05-11 09:37 | NUR.NOTE ---
Called pt to confirm that she understood discharge instructions regarding her aspirin. Advised that she is to continue taking the aspirin 325mg daily. Pt repeated I am to take the aspirin 325mg. Nursing Note:
== END 2022-05-08 15:49 | disposition home health service (06) | DRG 310 ==
LOC: ER 14:02 → MS 14:21
PROVIDERS: Nurse Practitioner Acute Care; Admitting Provider Internal Medicine; Emergency Provider Emergency Medicine; PCP Nurse Practitioner Family; Visit Provider Internal Medicine
DX: I48.91 Unspecified atrial fibrillation (principal); D50.9 Iron deficiency anemia, unspecified; I11.0 Hypertensive heart disease with heart failure; E78.5 Hyperlipidemia, unspecified; Z85.828 Personal history of other malignant neoplasm of skin; R53.1 Weakness; Z79.84 Long term (current) use of oral hypoglycemic drugs; I50.9 Heart failure, unspecified; D72.829 Elevated white blood cell count, unspecified; E78.00 Pure hypercholesterolemia, unspecified; E11.9 Type 2 diabetes mellitus without complications; I08.0 Rheumatic disorders of both mitral and aortic valves
CPT/HCPCS: 36415; 36430; 80048; 80053; 82805; 86850; 86900; 86901; 86920; 87040; 87077; 87635; 93005; 96374; 96375; 99285; 71045; 81003; 81015; 83540; 83550; 83735; 83880; 84443; 84484; 85025; 85610; 85730; 87086; 87186; 93010; 99217; 99223; 99238; J1756; J1941; J3490; P9016

== ENCOUNTER 2022-05-11 11:58 | Outpatient (CLI) | payer MEDICARE, SELFPAY ==
[2022-05-11 11:53] LABS: Abs Immature Grans 0.05 10^3/uL (0.0-0.06); Absolute Basophil Count 0.02 10^3/uL (0.0-0.2); Absolute Eosinophil Count 0.23 10^3/uL (0.0-0.7); Absolute Lymphocyte Count 1.31 10^3/uL (1.2-3.4); Absolute Monocyte Count 0.65 10^3/uL (0.1-0.8); Absolute Neutrophil Count 6.01 10^3/uL (1.2-6.7); Basophils % 0.2; Eosinophils % 2.8; HCT 25.4 % (36.0-46.0); HGB 7.2 g/dL (11.2-15.7); Immature Grans % 0.6; Lymphocytes % 15.8; MCH 21.9 pg (27.0-33.0); MCHC 28.3 % (32.0-36.0); MCV 77 fL (80-95); MPV 9.7 fL (8.0-11.0); Monocytes % 7.9; Neutrophils % 72.7; Platelet Count 306 10^3/uL (130-400); RBC 3.29 10^6/uL (3.93-5.22); RDW 20.3 % (11.7-14.6); RDW-SD 51.8 fL; WBC 8.27 10^3/uL (4.4-10.8)
[2022-05-11 12:08] LABS: Anisocytosis 2+; Diff Comment Diff Reviewed; Hypochromasia 2+
[2022-05-11 12:27] LABS: Anion Gap 9.3 mmol/L (3-11); BUN 17 mg/dL (7-18); CO2 25.7 mmol/L (21.0-32.0); CREATININE 1.1 mg/dL (0.55-1.02); Calcium 9.4 mg/dL (8.5-10.1); Chloride 99 mmol/L (98-107); Estimated GFR 48.04 (mL/min/1.73m2); Glucose 165 mg/dL (74-106); NT-proBNP 2449 pg/mL (<300); Potassium 4.1 mmol/L (3.5-5.1); Sodium 134 mmol/L (136-145)
== END 2022-05-11 11:59 | disposition home or self-care (01) ==
PROVIDERS: PCP Nurse Practitioner Family; Visit Provider Nurse Practitioner Family
DX: I50.9 Heart failure, unspecified (principal); I48.91 Unspecified atrial fibrillation
CPT/HCPCS: 36415; 80048; 83880; 85025

== ENCOUNTER 2022-05-28 00:48 | Outpatient (RCR) | payer MEDICARE, SELFPAY ==
[2022-05-21] MEDS: Normal Saline Flush 10 ML SYR IVP (11:17)
[2022-05-21] MEDS: IRON SUCROSE COMPLEX 300 MG in Normal Saline 250 ML 176.667 MG IVPB (11:18)
[2022-05-28] MEDS: Normal Saline Flush 10 ML SYR IVP (08:01)
[2022-05-28] MEDS: IRON SUCROSE COMPLEX 300 MG in Normal Saline 250 ML 176.667 MG IVPB (08:01)
== END 2022-06-16 23:59 | disposition home or self-care (01) ==
LOC: INF 00:48
PROVIDERS: PCP Nurse Practitioner Family; Visit Provider Nurse Practitioner Acute Care
DX: D50.9 Iron deficiency anemia, unspecified (principal)
CPT/HCPCS: 96365; 96366; J1756

== ENCOUNTER 2022-07-26 01:39 | Outpatient (CLI) | payer MEDICARE, SELFPAY | END 2022-07-26 01:59 | LOC: DI 01:39 | PROVIDERS: PCP Nurse Practitioner Family; Visit Provider Preventive Medicine Undersea and Hyperbaric Medicine | CPT/HCPCS: 82565 ==

== ENCOUNTER 2022-08-11 02:21 | Outpatient (CLI) | payer MEDICARE, SELFPAY ==
--- NOTE | 2022-08-11 07:34 | DI.US_ITS ---
APPROVED REPORT EXAM: Comprehensive 2D, Doppler, and color-flow Echocardiogram Patient Location: Out-Patient Piece Worker: Robina Mina RDCS (AE) Indications: Atrial fibrillation Other Information Study Quality: Adequate Conclusion Normal left ventricular wall thickness and chamber size. Estimated ejection fraction is 60 to 65%. Wall motion is normal Normal right ventricular size and systolic function Both atria are normal in size Aortic valve is sclerotic and trileaflet without stenosis or regurgitation Mild mitral annular calcification. Mild mitral regurgitation Normal tricuspid valve with mild regurgitation. Estimated right ventricular systolic pressure is 25 mmHg Wall motion Left Ventricle The left ventricle is normal size. The left ventricular systolic function is normal. The left ventric ular ejection fraction is within the normal range. There is normal left ventricular wall thickness. T here is normal LV segmental wall motion. There is no ventricular septal defect visualized. LVEF is 60 -65%. Right Ventricle The right ventricle is normal size. The right ventricular systolic function is normal. The RVSP is 24 .8mmHg. Atria The left atrium size is normal. The right atrium size is normal. The interatrial septum is intact wit h no evidence for an atrial septal defect. Aortic Valve The Aortic valve is sclerotic. Aortic valve is trileaflet. There is no aortic valvular stenosis. No a ortic regurgitation is present. Mitral Valve Mild mitral annular calcification. No evidence of mitral valve stenosis. Mild mitral regurgitation. Tricuspid Valve The tricuspid valve is normal in structure. There is no tricuspid valve stenosis. Trace tricuspid reg urgitation. Pulmonic Valve The pulmonary valve is normal in structure. There is no pulmonic valvular stenosis. There is no pulmo franky valvular regurgitation. Great Vessels The aortic root is normal in size. The ascending aorta is normal in size. Aortic arch is normal in ca liber. IVC is normal in size and collapses >50% with inspiration. Pericardium There is no pericardial effusion. 2D Dimensions IVSD d PLAX 0.81 cm F: 0.6-1.0 LV Vol A2C d MOD 75.3 mL LVPW d PLAX 0.81 cm F: 0.6 - 1.0 LV Vol A4C d MOD 89.9 mL LVID d PLAX 4.08 cm F: 3.8 - 5.2 LA vol/ BSA A2C s A-L 20.6 mL/m2 LVDs 2.80 cm F: 2.2 - 3.5 LA vol/ BSA A4C s A-L 31.5 mL/m2 Ao Root d 2.29 cm F: 2.7 - 3.3 LA Vol/ BSA Biplane s A-L 27.0 mL/m2 RA Area A4C 11.19 cm2 LA Area A4C s MOD 20.70 cm2 RA Vol/ BSA A4C s A-L 12.0 mL/m2 LA Area A2C s MOD 15.82 cm2 Ao Asc Diam d 3.18 cm F: 2.3 - 3.1 LV EF A4C MOD 57.5 % LV EF Teichholz 58.4 % LV EF A2C MOD 58.0 % LVEF (Stroud's) 57.83 % F: 54 - 74 LV EF Biplane MOD 57.8 % LV Volume 62.69 mL F: 46 - 106 SV 48.19 mL LV Volume Index 31.66 mL/m2 F: 29 - 61 SV Index 24.31 mL/m2 LV Vol Biplane MOD 83.3 mL FS 30.40 % M-Mode TAPSE 3.15 cm (M/F) >1.7 LV Diastology MV E' medial 0.104 (>0.07 m/s) E/A Ratio 1.4 LV E/e MED 9.95 (<14) MV E Vmax 1.04 (0.4-1.3 m/s) MV E' lateral 0.087 (>0.1 m/s) MV A Vmax 0.75 (0.4-1.3 m/s) LV E/e LAT 11.95 (<14) MV E/A Ratio 1.32 MV E/E' medial 9.99 MV E/E' lateral 11.96 Aortic Valve LVOT Area 2.63 cm2 AoV Area Vmax 1.50 cm2 LVOT Vmax 1.19 m/s AoV Area/ BSA (Vmax) 0.75 cm2/m2 LVOT Mean Saulo. 0.85 m/s TESHA Mean Saulo. 1.43 cm2 LVOT Peak Grad 5.7 mmHg TESHA Mean Saulo. Index 0.72 cm2/m2 LVOT Mean Grad 3.3 mmHg LVOT VTI 0.298 m LVOT Diam s 1.80 cm AoV Vmax 2.09 m/s Velocity Ratio 0.56 AoV Mean Saulo. 1.56 m/s AoV Peak Grad 17.5 mmHg LVOT SV 78.34 mL AoV Mean Grad 10.5 mmHg AoV VTI 0.523 m AoV Area VTI 1.50 cm2 AoV Area/ BSA (VTI) 0.76 cm/m2 Mitral Valve MV DT 209 (160-240 msec) MV PHT 60 msec MV Area PHT 3.64 cm2 Pulmonary Valve PV Vmax 0.90 (0.5-1.5 m/s) RVOT Peak Gr. 3.01 mmHg PV Peak Grad 3.2 mmHg RVOT Mean Gr. 1.50 mmHg PV Mean Grad 2.0 mmHg RVOT VTI 0.212 m PV VTI 0.206 m RVOT Vmax 0.87 m/s Tricuspid Valve TR Peak Grad 21.7 mmHg TR Vmax 2.33 m/s RA Pressure 3.00 mmHg RVSP (TR) 24.8 mmHg
== END 2022-08-11 02:41 ==
LOC: DI 02:21
PROVIDERS: PCP Nurse Practitioner Family; Visit Provider Nurse Practitioner Family
DX: I48.91 Unspecified atrial fibrillation (principal)
CPT/HCPCS: 93306

== ENCOUNTER 2022-12-30 08:44 | Outpatient (CLI) | payer MEDICARE, SELFPAY ==
--- NOTE | 2022-12-30 08:30 | RT.EKG_ITS ---
APPROVED REPORT Exam: Resting ECG Reason for Exam: afib Patient Location: O HR:115 bpm ECG Measurements Heart Rate 115 AXIS MI 159 P 74 QRSd 68 QRS 24 QT 310 T 54 QTc 429 Conclusion Sinus tachycardia Otherwise normal
== END 2022-12-30 08:45 | disposition home or self-care (01) ==
LOC: DI.CARD 08:45
PROVIDERS: PCP Nurse Practitioner Family; Visit Provider Internal Medicine Cardiovascular Disease
DX: I48.91 Unspecified atrial fibrillation (principal); I50.9 Heart failure, unspecified; R00.0 Tachycardia, unspecified
CPT/HCPCS: 93010

== ENCOUNTER → 2022-12-30 13:41 | Outpatient (BNVA) | payer MEDICARE, SELFPAY | PROVIDERS: PCP Nurse Practitioner Family; Referring Provider Nurse Practitioner Family; Visit Provider Internal Medicine Cardiovascular Disease | DX: I48.91 Unspecified atrial fibrillation (principal); I50.9 Heart failure, unspecified; I10 Essential (primary) hypertension; D64.9 Anemia, unspecified | CPT/HCPCS: 93005; 99203; 99213 ==

== ENCOUNTER 2023-02-17 15:20 | Outpatient (REF) | payer MEDICARE, SELFPAY ==
[2023-02-17 16:39] LABS: Abs Immature Grans 0.03 10^3/uL (0.0-0.06); Absolute Basophil Count 0.05 10^3/uL (0.0-0.2); Absolute Eosinophil Count 0.22 10^3/uL (0.0-0.7); Absolute Lymphocyte Count 1.74 10^3/uL (1.2-3.4); Absolute Monocyte Count 0.35 10^3/uL (0.1-0.8); Absolute Neutrophil Count 6.03 10^3/uL (1.2-6.7); Basophils % 0.6; Eosinophils % 2.6; HCT 32.5 % (36.0-46.0); HGB 10.2 g/dL (11.2-15.7); Immature Grans % 0.4; Lymphocytes % 20.7; MCH 28.6 pg (27.0-33.0); MCHC 31.4 % (32.0-36.0); MCV 91 fL (80-95); MPV 10.7 fL (8.0-11.0); Monocytes % 4.2; Neutrophils % 71.5; Platelet Count 227 10^3/uL (130-400); RBC 3.57 10^6/uL (3.93-5.22); RDW-SD 46.8 fL; WBC 8.42 10^3/uL (4.4-10.8)
[2023-02-17 17:13] LABS: TSH 5.88 uIU/mL (0.36-3.74)
[2023-02-17 18:16] LABS: Hemoglobin A1C 7.3 % (<5.7)
== END 2023-02-17 15:21 | disposition home or self-care (01) ==
LOC: NCHCN 15:20
PROVIDERS: PCP Nurse Practitioner Family; Visit Provider Nurse Practitioner Family
DX: E11.9 Type 2 diabetes mellitus without complications (principal); Z86.2 Personal history of diseases of the blood and blood-forming organs and certain disorders involving the immune mechanism
CPT/HCPCS: 83036; 84443; 85025

== ENCOUNTER 2023-05-20 13:28 | Outpatient (REF) | payer MEDICARE, SELFPAY ==
--- OUTSIDE RECORDS SUMMARY | 2023-05-20 13:33 | XMS_ITS | Continuity of Care Document ---
Author Name Unknown Organization [facility] Address [address] [place] [address] Encounter LTTL_NM FIN NBR [id number] Date(s): 09/01/22 - 09/01/[address] [id number] Encounter Diagnosis Nuclear age-related cataract, left eye(Discharge Diagnosis) - 08/29/22 Cortical age-related cataract, left eye(Discharge Diagnosis) - 08/29/22 Discharge Disposition: Home f/u External Provider Attending Physician: Mc Varghese MD Admitting Physician: Mc Varghese MD Referring Physician: Mc Varghese MD Allergies, Adverse Reactions, Alerts Substance Reaction Severity Status famotidine Severe Active Cardura Moderate Active Januvia Moderate Active Jardiance Severe Active Functional Status 09/01/22 Other exposure to Infectious Disease Non e Medications !-ferrous gluconate 324 mg (37.5 mg elemental iron) oral tablet 324 mg = 1 tab, Oral, Daily, # 100 tab, 0 Refill(s) Start Date: 08/16/22 Status: Ordered chlorthalidone 25 mg oral tablet 25 mg = 1 tab, Oral, Daily, 0 Refill(s) Start Date: 08/16/22 Status: Ordered citalopram 20 mg oral tablet 20 mg = 1 tab, Oral, Daily, # 30 tab, 0 Refill(s) Start Date: 08/16/22 Status: Ordered glipiZIDE 10 mg oral tablet 10 mg = 1 tab, Oral, BID, # 30 tab, 0 Refill(s) Start Date: 08/16/22 Status: Ordered Lasix 20 mg oral tablet 20 mg = 1 tab, Oral, Daily, PRN edema, # 30 tab, 0 Refill(s) Start Date: 08/16/22 Status: Ordered lisinopril 40 mg oral tablet 40 mg = 1 tab, Oral, Daily, # 30 tab, 0 Refill(s) Start Date: 08/16/22 Status: Ordered metFORMIN 1000 mg oral tablet, extended release 1,000 mg = 1 tab, Oral, BID, # 60 tab, 0 Refill(s) Start Date: 08/16/22 Status: Ordered metoprolol succinate 100 mg oral tablet, extended release 100 mg = 1 tab, Oral, BID, 0 Refill(s) Start Date: 08/16/22 Status: Ordered mirtazapine 7.5 mg oral tablet 7.5 mg = 1 tab, Oral, every night at bedtime, 0 Refill(s) Start Date: 08/16/22 Status: Ordered prednisolone/moxifloxacin/nepafenac 1%-0.5%-0.1% ophthalmic suspension 1 drops, OPHTH, As Directed, 0 Refill(s) Start Date: 08/18/22 Status: Ordered simvastatin 20 mg oral tablet 20 mg = 1 tab, Oral, every day at bedtime, # 30 tab, 0 Refill(s) Start Date: 08/16/22 Status: Ordered Problem List Condition Confirmation Course Effective Dates Status H ealth Status Informant Anemia Confirmed Active Atrial fibrillation 1 Confirmed 04/16/22 Active Breast cancer 2 Confirmed Active Diabetes mellitus Confirmed Active HLD - Hyperlipidemia Confirmed Active HTN - Hypertension Confirmed Active Joint pain Confirmed Active SCC - squamous cell carcinoma Confirmed Active Thyroid mass Confirmed Active thought to be caused by severe anemia 2right Procedures Procedure Date Related Diagnosis Body Site Status Cataract Extraction with IOL (Left) 1 09/01/22 Completed Cataract Extraction with IOL (Right) 2 08/18/22 Completed Breast lumpectomy Complet ed Tumor destruction 3 Compl eted 1auto-populated from documented surgical case 2auto-populated from documented surgical case 3skin cancer on head Vital Signs Most recent to oldest [Reference Range]: 1 2 3 4 Temperature Temporal Artery [36-38 Deg C] 36.0 Deg C (09/01/22 9:40 AM) 36.0 Deg C (09/01/22 9:40 AM) 35.8 Deg C *LOW* (09/01/22 8:21 AM) Temperature Temporal Artery (DegF) [97.3-100 Deg F] 96.8 Deg F *LOW* (09/01/22 9:40 AM) 96.8 Deg F *LOW* (09/01/22 9:40 AM) Peripheral Pulse Rate [60-100 bpm] 60 bpm (09/01/22 10:19 AM) 68 bpm (09/01/22 10:01 AM) 68 bpm (09/01/22 9:40 AM) 68 bpm (09/01/22 9:40 AM) Respiratory Rate [12-24 br/min] 16 br/min (09/01/22 10:01 AM) 16 br/min (09/01/22 9:40 AM) 16 br/min (09/01/22 8:21 AM) Blood Pressure [90-140/60-90 mmHg] 137/92mmHg (09/01/22 10:19 AM) 158/65mmHg *HI* (09/01/22 10:01 AM) 159/65mmHg *HI* (09/01/22 9:40 AM) 171/60mmHg *HI* (09/01/22 9:40 AM) Mean Arterial Pressure, Cuff [65-140 mmHg] 107 mmHg (09/01/22 10:19 AM) 96 mmHg (09/01/22 10:01 AM) 96 mmHg (09/01/22 9:40 AM) 97 mmHg (09/01/22 9:40 AM) Mean Arterial Pressure Cuff 105 mmHg (09/01/22 10:19 AM) 94 mmHg (09/01/22 10:01 AM) 94 mmHg (09/01/22 9:40 AM) 94 mmHg (09/01/22 9:40 AM) Social History Social History Type Response Tobacco Never tobacco user T obacco Use:. Sex Implantable Device List Procedure Provider Procedure Date Device Type Site Extracapsular cataract remov al with insertion of intraocular lens prosthesis (1 stage procedure), manual or mechanical technique (eg, irrigation and aspiration or phacoemulsification); without endoscopic cyclophotocoagulation Mc Varghese MD 09/01/22 Non Biological Eye L Device Identifier Serial Number Lot or Batch Number Manufacturing Date Expiration Date Distinct Identification Code MRI Safety Implantable Status Assigning Authority Unknown [id number] NA Unknown 05/01/25 Unknown Unknown Active Unknown Procedure Provider Procedure Date Device Type Site Cataract Extraction with IOL Mc Varghese MD 08/18/22 Non Biological Eye R Device Identifier Serial Number Lot or Batch Number Manufacturing Date Expiration Date Distinct Identification Code MRI Safety Implantable Status Assigning Authority Unknown [id number] Unknown Unknown 05/08/25 Unknown Unknown Active Unknown
--- OUTSIDE RECORDS SUMMARY | 2023-05-20 13:33 | XMS_ITS | Continuity of Care Document ---
Author Name Unknown Organization [facility] Address [address] [place] [address] Care Team Providers Care Dip Stand Loader Name Role Phone CLEO MADISON Primary Care Physician Encounter LTTL_AZ FIN [id number] [id number] Date(s): 01/04/23 - 01/04/[address] [id number] Discharge Disposition: Home or Self Care Attending Physician: CLEO MADISON Admitting Physician: CLEO MADISON Allergies, Adverse Reactions, Alerts Substance Reaction Severity Status famotidine Severe Active Cardura Moderate Active Januvia Moderate Active Jardiance Severe Active Medications !-ferrous gluconate 324 mg (37.5 mg [...] carcinoma Confirmed Active Thyroid mass Confirmed Active 1thought to be caused by severe anemia 2right Procedures Procedure Date Related Diagnosis Body Site Status Cataract Extraction with IOL (Left) 1 09/01/22 Completed Cataract Extraction with IOL (Right) 2 08/18/22 Completed Breast lumpectomy Complet ed Tumor destruction 3 Compl eted 1auto-populated from documented surgical case 2auto-populated from documented surgical case 3skin cancer on head Results Laboratory List Name Date Basic Metabolic Panel 01/04/23 CBC w/o Diff 01/04/23 Vitamin D 25 Hydroxy Level 01/04/23 Most recent to oldest [Reference Range]: 1 WBC [4.8-10.8 K/mcL] 9.2 K/mcL (01/04/23 9:42 AM) RBC [4.20-5.40 Million/mcL] 3.52 Million /mcL *LOW* (01/04/23 9:42 AM) BUN [8-26 mg/dL] 23 mg/dL (01/04/23 9:42 AM) Glucose Level [74-106 mg/dL] 78 mg/dL (01/04/23 9:42 AM) Potassium Level [3.5-5.1 mmol/L] 5.3 mmo l/L *HI* (01/04/23 9:42 AM) MCV [81.0-99.0 fL] 101.4 fL *HI* (01/04/23 9:42 AM) MCHC [32.0-36.0 g/dL] 29.7 g/dL *LOW* (01/04/23:42 AM) Osmolality [275-295 mOsm/kg] 273 mOsm/kg *LOW* (01/04/23 9:42 AM) Sodium Level [134-143 mmol/L] 135 mmol/L (01/04/23 9:42 AM) Hct [37.0-47.0 %] 35.7 % *LOW* (01/04/23 9:42 AM) Vitamin D 25 OH [30.0-100.0 ng/mL] 24.5 ng/mL *LOW* (01/04/23:42 AM) Calcium Level [8.9-10.3 mg/dL] 9.6 mg/dL (01/04/23 9:42 AM) MCH [27.0-31.0 pg] 30.1 pg (01/04/23 9:42 AM) Hgb [12.0-16.0 g/dL] 10.6 g/dL *LOW* (01/04/23 9:42 AM) MPV [7.4-10.4 fL] 10.2 fL (01/04/23 9:42 AM) Platelets [130-400 K/mcL] 212 K/mcL (01/04/23 9:42 AM) CO2 [22-32 mmol/L] 20 mmol/L *LOW* (01/04/23 9:42 AM) Chloride Level [98-111 mmol/L] 104 mmol/ L (01/04/23 9:42 AM) RDW-CV [11.5-14.5 %] 14.6 % *HI* (01/04/23 9:42 AM) BUN/Creat Ratio [8.0-20.0] 19.3 (01/04/23 9:42 AM) Creatinine Level [0.44-1.00 mg/dL] 1.19 mg/dL *HI* (01/04/23 9:42 AM) Anion Gap [3.0-12.0] 11.0 (01/04/23 9:42 AM) eGFR CKD-EPI [>=60 mL/min/1.73 m2] 47 mL /min/1.73 m2 *LOW* (01/04/23 9:42 AM) Social History Social History Type Response [...] MRI Safety Implantable Status Assigning Authority Unknown [id number] NA Unknown 05/01/25 Unknown Unknown Active Unknown Procedure Provider Procedure Date Device Type Site Cataract Extraction with IOL Mc Varghese MD 08/18/22 Non Biological Eye R Device Identifier Serial Number Lot or Batch Number Manufacturing Date Expiration Date Distinct Identification Code MRI Safety Implantable Status Assigning Authority Unknown [id number] Unknown Unknown 05/08/25 Unknown Unknown Active Unknown Patient Care team information Care Team Personnel Name: CLEO MADISON Position: No Access Member Role: Primary Care Physician Address: Address: [address] [place] [address] [address] [place] [id number] [place] [address]
--- OUTSIDE RECORDS SUMMARY | 2023-05-20 13:33 | XMS_ITS | Continuity of Care Document ---
Author Name Unknown Organization [facility] Address [address] [place] [address] Encounter LTTL_[place] FIN [id number] [id number] Date(s): 08/18/22 - 08/18/[address] [id number] Encounter Diagnosis Nuclear age-related cataract, right eye(Discharge Diagnosis) - 08/15/22 Cortical cataract of right eye(Discharge Diagnosis) - 08/15/22 Discharge Disposition: Home f/u Internal Provider Attending Physician: Mc Varghese MD Admitting Physician: Mc Varghese MD Referring Physician: Mc Varghese MD Allergies, Adverse Reactions, Alerts Substance Reaction Severity Status famotidine Severe Active Cardura Moderate Active Januvia Moderate Active Jardiance Severe Active Functional Status 08/18/22 Other exposure to Infectious Disease Non e [...] Body Site Status Cataract Extraction with IOL (Right) 1 08/18/22 Completed Breast lumpectomy Complet ed Tumor destruction 2 Compl eted 1auto-populated from documented surgical case 2skin cancer on head Vital Signs Most recent to oldest [Reference Range]: 1 Temperature Temporal Artery [36-38 Deg C ] 36.3 Deg C (08/18/22 8:12 AM) Peripheral Pulse Rate [60-100 bpm] 65 bp m (08/18/22 10:01 AM) Respiratory Rate [12-24 br/min] 16 br/mi n (08/18/22 8:12 AM) Blood Pressure [90-140/60-90 mmHg] 181/7 6mmHg *HI* (08/18/22 8:12 AM) Weight 93.000 kg (08/16/22 4:33 PM) Weight Dosing 93.000 kg (08/16/22 4:33 PM) Height 168.000 cm (08/16/22 4:33 PM) Height/Length Dosing 168.000 cm (08/16/22 4:33 PM) Social History Social History Type Response Tobacco Never tobacco user T obacco Use:. Sex Implantable Device List Procedure Provider Procedure Date Device Type Site Cataract Extraction with IOL Mc Varghese MD 08/18/22 Non Biological Eye R Device Identifier Serial Number Lot or Batch Number Manufacturing Date Expiration Date Distinct Identification Code MRI Safety Implantable Status Assigning Authority Unknown [id number] Unknown Unknown 05/08/25 Unknown Unknown Active Unknown
[2023-05-20 16:44] LABS: Abs Immature Grans 0.04 10^3/uL (0.0-0.06); Absolute Basophil Count 0.04 10^3/uL (0.0-0.2); Absolute Eosinophil Count 0.29 10^3/uL (0.0-0.7); Absolute Lymphocyte Count 1.69 10^3/uL (1.2-3.4); Absolute Monocyte Count 0.45 10^3/uL (0.1-0.8); Absolute Neutrophil Count 6.42 10^3/uL (1.2-6.7); Basophils % 0.4; Eosinophils % 3.2; HCT 30.2 % (36.0-46.0); HGB 9.3 g/dL (11.2-15.7); Immature Grans % 0.4; Lymphocytes % 18.9; MCH 28.4 pg (27.0-33.0); MCHC 30.8 % (32.0-36.0); MCV 92 fL (80-95); MPV 10.3 fL (8.0-11.0); Neutrophils % 72.1; Platelet Count 235 10^3/uL (130-400); RBC 3.28 10^6/uL (3.93-5.22); RDW 15.3 % (11.7-14.6); RDW-SD 51.3 fL; WBC 8.93 10^3/uL (4.4-10.8)
[2023-05-20 17:41] LABS: ALT 14 U/L (14-59); AST 18 U/L (15-37); Albumin 3.3 g/dL (3.4-5.0); Alkaline Phosphatase 115 U/L (46-116); Anion Gap 12.3 mmol/L (3-11); BUN 22 mg/dL (7-18); Bilirubin, Total 0.3 mg/dL (0.2-1.0); CO2 21.7 mmol/L (21.0-32.0); CREATININE 1.2 mg/dL (0.55-1.02); Calcium 9.8 mg/dL (8.5-10.1); Calculated LDL 75 mg/dL (<100); Chloride 105 mmol/L (98-107); Cholesterol 155 mg/dL (<200); Estimated GFR 46.05 (mL/min/1.73m2); Glucose 135 mg/dL (74-106); HDL Cholesterol 47 mg/dL (40-60); Magnesium 1.6 mg/dL (1.8-2.4); Potassium 5.2 mmol/L (3.5-5.1); Sodium 139 mmol/L (136-145); TSH 0.17 uIU/mL (0.36-3.74); Total Protein 7.7 g/dL (6.4-8.2); Triglyceride 169 mg/dL (<150)
== END 2023-05-20 13:29 | disposition home or self-care (01) ==
LOC: NCHCN 13:28
PROVIDERS: PCP Nurse Practitioner Family; Visit Provider Nurse Practitioner Family
DX: I10 Essential (primary) hypertension (principal); E11.9 Type 2 diabetes mellitus without complications; E07.9 Disorder of thyroid, unspecified; Z86.2 Personal history of diseases of the blood and blood-forming organs and certain disorders involving the immune mechanism
CPT/HCPCS: 80053; 80061; 83036; 83735; 84443; 85025

== ENCOUNTER 2023-06-12 20:24 | Emergency (ER) | payer MEDICARE, SELFPAY ==
[2023-06-12] VITALS (55 sets, daily range): BP systolic 102–163; BP diastolic 61–110; PULSE 74–81; RESP 18; TEMP 36.8; O2SAT 97–100
--- NOTE | 2023-06-12 20:30 | DI.RAD_ITS ---
Exam(s) XR HIP RT COMPLETE AP PELVIS EXAM: XR HIP RT COMPLETE AP PELVIS CLINICAL HISTORY: right hip pain after fall, eval for fx. TECHNIQUE: 2D digital imaging was performed. Two views COMPARISON: CT CT LOWER EXTREMITY RT WO from 06/12/2023 FINDINGS: BONES: No acute fracture is present. No bony destructive lesion is seen. JOINTS: No dislocation present. SOFT TISSUE: Normal. IMPRESSION: Unremarkable radiographs of the right hip. Unremarkable radiographs of the pelvis. DATA REPOSITORY: RADIATION DOSE DELIVERED:
[2023-06-12 20:55] LABS: Abs Immature Grans 0.04 10^3/uL (0.0-0.06); Absolute Basophil Count 0.04 10^3/uL (0.0-0.2); Absolute Eosinophil Count 0.11 10^3/uL (0.0-0.7); Absolute Lymphocyte Count 1.75 10^3/uL (1.2-3.4); Absolute Monocyte Count 0.55 10^3/uL (0.1-0.8); Basophils % 0.4; HCT 29.9 % (36.0-46.0); HGB 9.3 g/dL (11.2-15.7); Immature Grans % 0.4; Lymphocytes % 15.9; MCH 27.5 pg (27.0-33.0); MCHC 31.1 % (32.0-36.0); MCV 89 fL (80-95); MPV 9.4 fL (8.0-11.0); Neutrophils % 77.3; Platelet Count 223 10^3/uL (130-400); RBC 3.38 10^6/uL (3.93-5.22); RDW 15.1 % (11.7-14.6); RDW-SD 48.7 fL; WBC 10.99 10^3/uL (4.4-10.8)
--- NOTE | 2023-06-12 20:58 | ED.GENADUL_ITS ---
Discharge Plan Discharge Details Chief Complaint: GenMedical Clinical Impression: Acute pain of right hip Primary Care Provider: Geovanna Anders ED Provider: Nabeel Pearson Home Meds and New Rx's Prescriptions: No Action lisinopril 10 mg tablet 10 mg PO DAILY levothyroxine 100 mcg capsule 100 mcg PO DAILY citalopram 20 mg tablet 20 mg PO DAILY ergocalciferol (vitamin D2) 1,250 mcg (50,000 unit) capsule 1 cap PO DAILY Patient Comments: not taking mirtazapine 7.5 mg tablet 1 tab PO HS Patient Comments: Take 1 tablet by mouth every night ferrous gluconate 324 mg (38 mg iron) Tablet 27 mg PO DAILY cholecalciferol (vitamin D3) [Vitamin D3] 50 mcg (2,000 unit) Tablet 50 mcg PO BID metoprolol succinate 100 mg Tablet Extended Release 24 Hr 100 mg PO BID Qty: 0 0RF glipizide 10 mg Tablet 10 mg PO BID metformin 1,000 mg Tablet 1,000 mg PO BID simvastatin 20 mg tablet 20 mg PO HS furosemide 20 mg tablet 20 mg PO DAILY Patient Comments: TAKE ONE TABLET BY MOUTH ONCE DAILY NEEDED FOR SWELLING Medical Decision Making 77-year-old female with a past medical history of congestive heart failure, atrial fibrillation, 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 Patient states that starting last night she noticed weakness in her right hip. She tried to get up, and then fell onto the ground. She was there for 6 hours. She then subsequently had weakness throughout the day in her right hip and leg. She had some mild pain in the hip as well. She has not gotten up or really done anything throughout the day. She did take Tylenol just prior to arrival via EMS, and on her way the pain completely resolved. She denies any chest pain or shortness of breath. She denies any numbness tingling or weakness. She denies hitting her head or any other trauma when she fell. She is not on any blood thinners currently. No other complaints at this time. No other modifying factors. Exam demonstrates minimal achiness in the right hip, pain has essentially resolved at this point. 5 out of 5 strength for all movements of the right hip. No pain with logroll. No other abnormalities. Normal sensation. Normal neurovascular exam otherwise. I do worry about the patient having had mild rhabdomyolysis for and how long she was down on the ground earlier today. We will get basic labs and gently rehydrate. We will get an x-ray to evaluate for fracture. Could have been a muscle spasm that initially brought on the pain, however differential is broad to include potential dislocation that subsequently relocated, muscle spasm, or neuropathic pain. We will monitor closely and reassess. 11 PM X-ray negative for acute process. Laboratory work-up shows mild urinary tract infection. Hemoglobin slightly low but near baseline. We did get the patient up once, and she was able to stand up well at the bed, she was extremely hesitant about taking a step. She states that the pain is notably improved however she is worried that if she takes a step she could fall. We did finish the patient's fluids and then retry again an hour later, she again states that the pain is notably improved, and she is able to get up and down well from the bed however she is very concerned and 2 degree unwilling to take steps forward even with a walker and a 3 person surrounding assist. She is extremely concerned that if she takes a step she might fall. We did order a CT scan out of an abundance of precaution to check for occult fracture. CT scan negative for acute process. Patient states that she does not feel comfortable going home like this. has no additional thoughts at this time. We will keep the patient here for evaluation by PT OT in the morning and reassessment. FINDINGS: Bones/joints: Mild degenerative changes. No acute fracture. Soft tissues: Injection granuloma in the right IMPRESSION: No acute findings. Thank you for allowing us to participate in the care of your patient. Dictated and Authenticated by: González Raines MD 06/12/2023 9:05 PM Eastern Time ([place] & [place]) FINDINGS: Bones/joints: No acute fracture or subluxation. Moderate joint space narrowing of the right hip. Distal lumbar spondylosis.The bones are demineralized. Soft tissues: Benign-appearing enthesophytes. Vasculature: Atherosclerosis. IMPRESSION: 1. No acute bony pathology. 2. Incidental findings as described. Thank you for allowing us to participate in the care of your patient. Dictated and Authenticated by: Liliam Rosa MD 06/13/2023 12:28 AM Eastern Time ([place] & [place]) HPI General Date/Time Provider Initiated Documentation: 06/12/23 20:27 . 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 Patient states that starting last night she noticed weakness in her right hip. She tried to get up, and then fell onto the ground. She was there for 6 hours. She then subsequently had weakness throughout the day in her right hip and leg. She had some mild pain in the hip as well. She has not gotten up or really done anything throughout the day. She did take Tylenol just prior to arrival via EMS, and on her way the pain completely resolved. She denies any chest pain or shortness of breath. She denies any numbness tingling or weakness. She denies hitting her head or any other trauma when she fell. She is not on any blood thinners currently. No other complaints at this time. No other modifying factors. Related Data Home Medications Medication Instructions Recorded Confirmed glipizide 10 mg tablet 10 mg PO BID 07/12/21 06/12/23 metformin 1,000 mg tablet 1,000 mg PO BID 07/12/21 06/12/23 cholecalciferol (vitamin D3) 50 50 mcg PO BID 05/07/22 06/12/23 mcg (2,000 unit) tablet (Vitamin D3) ergocalciferol (vitamin D2) 1,250 1 cap PO DAILY 05/07/22 12/30/22 mcg (50,000 unit) capsule ferrous gluconate 324 mg (38 mg 27 mg PO DAILY 05/07/22 06/12/23 iron) tablet mirtazapine 7.5 mg tablet 1 tab PO HS 05/07/22 06/12/23 metoprolol succinate 100 mg 100 mg PO BID #0 tabs 05/08/22 06/12/23 tablet,extended release 24 hr citalopram 20 mg tablet 20 mg PO DAILY 12/30/22 06/12/23 levothyroxine 100 mcg capsule 100 mcg PO DAILY 12/30/22 06/12/23 lisinopril 10 mg tablet 10 mg PO DAILY 12/30/22 06/12/23 simvastatin 20 mg tablet 20 mg PO HS 12/30/22 06/12/23 furosemide 20 mg tablet 20 mg PO DAILY 06/12/23 06/12/23 Previous Rx's Medication Instructions Recorded metoprolol succinate 100 mg 100 mg PO BID #0 tabs 05/08/22 tablet,extended release 24 hr Allergies Allergy/AdvReac Type Severity Reaction Status Date / Time famotidine Allergy Severe Verified 12/30/22 14:13 doxazosin [From Cardura] Allergy Intermediate Verified 12/30/22 14:13 sitagliptin [From Januvia] Allergy Intermediate Verified 12/30/22 14:13 empagliflozin Allergy Verified 12/30/22 14:13 [From Jardiance] General Stated Complaint: GenMedical ZAKIA: 3 Review of Systems All systems reviewed & are unremarkable except as noted in HPI and below PFSH All Active Problems (Updated 06/13/23 @ 07:32 by Nabeel Pearson DO) Acute pain of right hip (Acute) Anemia (Chronic) CHF (congestive heart failure) (Chronic) Atrial fibrillation with RVR (Acute) Leucocytosis (Acute) DVT prophylaxis (Acute) Acute dyspnea (Acute) Pleural effusion (Acute) Diabetes mellitus (Chronic) Medical History Abnormal finding on breast imaging Acute CHF Atrial fibrillation Breast cancer Discharge planning issues Glaucoma Goiter HTN (hypertension) Hypercholesterolemia Osteopenia Squamous cell cancer of scalp and skin of neck Trochanteric bursitis Surgical History S/P breast lumpectomy S/P skin and subcutaneous tissue surgery Social History Smoking/Tobacco Use Status: Never Smoking risk assessment performed?: Yes Alcohol Intake: never Drug use: Never Substance use type: does not use Do you feel safe at home: Yes Do you feel safe in your relationship?: Yes Exam Narrative Exam Narrative: 1.Const: Well-nourished, Well-developed, appearing stated age 2.Eyes: PERRL, no conjunctival injection, and symmetrical lids. 3.ENT: Atraumatic external nose and ears. Moist MM. Neck: Symmetric, trachea midline, No thyromegaly. 4.CVS: +S1/S2, No murmurs or gallops. Peripheral pulses 2+ and equal in all extremities. Brisk capillary refill in all extremities. 5.RESP: Unlabored respiratory effort. Clear to auscultation bilaterally. No wheezes rales or rhonchi 6.GI: Soft, Nontender/Nondistended, No hepatosplenomegaly. No guarding or rebound. 7.MSK: Normocephalic/Atraumatic, Extremities w/o deformity or ttp No cyanosis or clubbing, Normal movement of all extremities. Patient demonstrates notably normal movement of the right lower extremity in all directions. No pain with logroll. Minimal achiness on palpation of the right hip. Patient demonstrates 5 out of 5 strength in all directions for movement of the hip. Patient demonstrates good plantar dorsiflexion of the foot. No evidence of saddle anesthesia. 8.Skin: Warm, Dry. No rashes or lesions. 9.Neuro: translator interpreter II-XII grossly intact. Sensation grossly intact, no focal neurologic deficits. 10.Psych: (AAO) x3. Appropriate mood and affect Course Vital Signs Vital signs: Vital Signs Temperature 36.8 C 06/12/23 20:19 Pulse 74 06/12/23 20:19 Respiratory Rate 18 06/12/23 20:19 Blood Pressure 102/71 06/12/23 20:19 Pulse Oximetry 99 06/12/23 20:19 Temperature 36.8 C 06/12/23 20:19 Temperature Source Oral 06/12/23 20:19 Pulse 74 06/12/23 20:19 Respiratory Rate 18 06/12/23 20:19 Respiratory Effort Normal 06/12/23 20:27 Blood Pressure 102/71 06/12/23 20:19 Pulse Oximetry 99 06/12/23 20:19 Oxygen Delivery Method Room Air 06/12/23 20:19 Oxygen Flow Rate 0 06/12/23 20:19 Pain Level 0 06/12/23 20:19 Lab/Test Results Lab/Test Results: Laboratory Tests Range/Units 06/12/23 20:42 WBC (4.4-10.8) 10^3/uL 10.99 H RBC (3.93-5.22) 10^6/uL 3.38 L Hgb (11.2-15.7) g/dL 9.3 L Hct (36.0-46.0) % 29.9 L MCV (80-95) fL 89 MCH (27.0-33.0) pg 27.5 MCHC (32.0-36.0) % 31.1 L RDW (11.7-14.6) % 15.1 H Plt Count (130-400) 10^3/uL 223 MPV (8.0-11.0) fL 9.4 Immature Gran % 0.4 Neutrophils % 77.3 Lymphocytes % 15.9 Monocytes % 5.0 Eosinophils % 1.0 Basophils % 0.4 Nucleated RBC % (0.0-0.3) % 0.0 Absolute Neutrophils (1.2-6.7) 10^3/uL 8.50 H Absolute Lymphocytes (1.2-3.4) 10^3/uL 1.75 Absolute Monocytes (0.1-0.8) 10^3/uL 0.55 Absolute Eosinophils (0.0-0.7) 10^3/uL 0.11 Absolute Basophils (0.0-0.2) 10^3/uL 0.04
--- NOTE | 2023-06-12 21:06 | DI.VRAD_ITS ---
PROCEDURE INFORMATION: Exam: XR Right Hip Exam date and time: 06/12/2023 8:59 PM Age: 77 years old Clinical indication: Patient HX: Right hip pain after fall, eval for FX TECHNIQUE: Imaging protocol: Radiologic exam of the right hip. Views: 2 or 3 views hip with pelvis when performed. COMPARISON: No relevant prior studies available. FINDINGS: Bones/joints: Mild degenerative changes. No acute fracture. Soft tissues: Injection granuloma in the right IMPRESSION: No acute findings. Dictated and Authenticated by: González Raines MD. Ordering:KENNEDY Lees MD
[2023-06-12 21:09] LABS: ALT 11 U/L (14-59); AST 13 U/L (15-37); Albumin 3.2 g/dL (3.4-5.0); Alkaline Phosphatase 103 U/L (46-116); Anion Gap 11.2 mmol/L (3-11); BUN 20 mg/dL (7-18); Bilirubin, Total 0.4 mg/dL (0.2-1.0); CO2 22.8 mmol/L (21.0-32.0); CREATININE 1.2 mg/dL (0.55-1.02); Chloride 101 mmol/L (98-107); Creatine Kinase 159 U/L (26-192); Estimated GFR 46.05 (mL/min/1.73m2); Glucose 183 mg/dL (74-106); Magnesium 1.5 mg/dL (1.8-2.4); Potassium 4.4 mmol/L (3.5-5.1); Sodium 135 mmol/L (136-145); Total Protein 7.5 g/dL (6.4-8.2)
[2023-06-12] MEDS: Normal Saline 500 ML IV (21:10)
[2023-06-12 22:48] LABS: Bilirubin Negative (Negative); Blood Negative (Negative); Clarity Clear (Clear); Glucose Negative (Negative); Ketones Trace mg/dL (Negative); Leukocyte Esterase Small (Negative); Nitrite Positive (Negative); Specific Gravity 1.015 (1.005-1.025); Urobilinogen 0.2 mg/dL (Up to 0.2)
[2023-06-12 22:57] LABS: Bacteria Many HPF (Negative); C & S Indicated? Yes; Casts Negative LPF (Negative); Crystals Negative HPF (Negative); Epithelial Cells Rare HPF (Negative); Mucus Negative (Negative); RBC Negative HPF (0-2)
--- NOTE | 2023-06-12 23:19 | DI.CT_ITS ---
Exam(s) CT LOWER EXTREMITY RT WO EXAM: CT LOWER EXTREMITY RT WO CLINICAL HISTORY: Right hip pain, r/o occult fracture. TECHNIQUE: Imaging Protocol: Axial computed tomography images with coronal and sagittal reformatted images were created and reviewed. CONTRAST MATERIAL: Noncontrast COMPARISON: CR,XR XR HIP RT COMPLETE AP PELVIS from 06/12/2023 FINDINGS: Bones: There is no evidence of fracture or dislocation. No cellulitic or osteomyelitic changes are identified. No lytic or sclerotic lesions are identified. Bones appear osteopenic. Joints: There is no significant joint space narrowing. No significant periarticular spurring. Dege nerative disc changes L4-5 and L5-S1. Soft Tissues: Normal. No hematoma. Pelvic contents unremarkable. IMPRESSION: No acute abnormality of the right hip. RADIATION DOSE DELIVERED: 828.11mGy.cm Total DLP DATA REPOSITORY: All CT scans at this facility are submitted to the National Radiology Data Registry (NRDR) Dose Index Registry (DIR) with the [employer] (A[employer]). RADIATION OPTIMIZATION: All CT scans at this facility use at least one of these dose optimization te chniques: automated exposure control; mA and/or kV adjustment per patient size (includes targeted exa ms where dose is matched to clinical indication); or iterative reconstruction.
[2023-06-13] VITALS (7 sets, daily range): BP systolic 148–169; BP diastolic 60–96; PULSE 70–86; RESP 16–18; TEMP 37; O2SAT 98–99
[2023-06-13] MEDS: Dexamethasone 10 MG/ML VIAL IVP
[2023-06-13] MEDS: cefTRIAXone 2 GM/50 ML BAG IVPB
--- NOTE | 2023-06-13 00:28 | DI.VRAD_ITS ---
PROCEDURE INFORMATION: Exam: CT Right Lower Extremity Without Contrast, Hip Exam date and time: 06/12/2023 11:33 PM Age: 77 years old Clinical indication: Right; Patient HX: R hip pain, R/O cccult FX TECHNIQUE: Imaging protocol: CT of the right lower extremity without contrast was performed. Exam focused on the hip. Radiation optimization: All CT scans at this facility use at least one of these dose optimization techniques: automated exposure control; mA and/or kV adjustment per patient size (includes targeted exams where dose is matched to clinical indication); or iterative reconstruction. COMPARISON: CR XR HIP RT COMPLETE AP PELVIS 06/12/2023 8:59 PM FINDINGS: Bones/joints: No acute fracture or subluxation. Moderate joint space narrowing of the right hip. Distal lumbar spondylosis.The bones are demineralized. Soft tissues: Benign-appearing enthesophytes. Vasculature: Atherosclerosis. IMPRESSION: 1. No acute bony pathology. 2. Incidental findings as described. Dictated and Authenticated by: Liliam Rosa MD. Ordering:KENNEDY Lees MD
[2023-06-13] MEDS: Ketorolac 15 MG/ML VIAL IVP ×2 (08:39)
[2023-06-13] MEDS: Acetaminophen 325 MG TAB 650 MG PO (08:39)
--- NOTE | 2023-06-13 08:47 | NUR.NOTE ---
Pt unhappy that she did not receive dinner last night. Explained that we were waiting for scan to ensure her hip was not broken. Pt is in with physical therapy now for ordered assessment. Pt given PO tylenol for 5/10 right hip pain. Breakfast ordered per pt request.
--- NOTE | 2023-06-13 09:00 | IN_ITS ---
PT Notes Visit Reasons: [facility] Physical Therapy Inpatient Initial Evaluation Date: 06/13/2023 Referring Doctor: Nabeel Pearson MD PT Orders: PT CONSULT: Safety COnsult for D/C Precautions: Fall. Standard. Activity as tolerated. Patient Profile/Admitting Diagnosis: Patient is a 77-year-old female patient with past medical history sognifincat for CHF, AF, and squamous cell CA who presented to the ED Tuesday at 1 AM after falling at home Tuesday afternoon. Patient was also found to have mild urinary tract infection with x-ray and CT scan unrevealing for fracture, subluxation, nor dislocation. PMHX: All Active Problems?(Updated 06/13/23 @ 07:32 by Nabeel Pearson DO) Acute pain of right hip (Acute) Anemia (Chronic) CHF (congestive heart failure) (Chronic) Atrial fibrillation with RVR (Acute) Leucocytosis (Acute) DVT prophylaxis (Acute) Acute dyspnea (Acute) Pleural effusion (Acute) Diabetes mellitus (Chronic) Medical History? 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 visit S/P breast lumpectomy S/P skin and subcutaneous tissue surgery Social History/Home Situation: Lives with in a private home with 2 steps to enter. Independent with all aspects of ADLs prior to admission. Has a 4WW which she rarely used. Equipment Owned/DME: FWW Subjective: Patient reports pain in the right buttock and and posterior hip at rest that worsens with movement and weight bearing. She is wondering why she has not had her nighttime medications last night. All she remembers was having a pain pill. Very hungry, has not had supper last night and no breakfast this morning. Nurse aware and immediately took patient's order so she could eat. Points to the right inner buttock going to the outer right buttock when asked where her pain is. Prior to today patient's pain was originating from her low back and spreading to the right thigh. She adds that she has spinal stenosis and it may have been contributing to her fall and to how sheis feeling right now. Objective: General Observation: Supine in bed. Anxious about moving right lower extremity. Mental Status: Alert and oriented as to person, place, time, and purpose. Able to pay attention, focus, and respond appropriately. Pain: 5/10 at rest, 8/10 with standing Vital Signs: Closely monitored by nursing staff ROM: Right Lower Extremity: Hip flexion up to 90 degrees only limited by pain report. Hip abduction less than 10 degrees. Knee flexion up to 100 degrees. Ankle dorsiflexion to neutral only. Ankle plantarflexion WFL. Left Lower Extremity: Hip flexion WFL. Hip abduction WFL. Knee flexion WFL. Ankle dorsiflexion WFL. Ankle plantarflexion WFL. Strength: Right Lower Extremity: Hip flexors 3-/5. Hip abductors 2-/5. Knee flexors 3-/5. Knee extensors 3-/5. Ankle dorsiflexors 3-/5. Ankle plantarflexors 3-/5. Left Lower Extremity: Hip flexors 4-/5. Hip abductors 4-/5. Knee flexors 4-/5. Knee extensors 3-/5. Ankle dorsiflexors 3-/5. Ankle plantarflexors 4-/5. Bed Mobility/Transfers: Rolling minimal assist Supine to sit minimal assist Sit to supine moderate assist Sit to stand minimal assist with cues proviede to use B UE for support Stand to sit minimal assist with cues proviede to use B UE for support Bed to bedside commode unable due to anxiety and pain worsening to 8/10 Bedside commode to bed unable due to anxiety and pain worsening to 8/10 Bed to reclining chair unable due to anxiety and pain worsening to 8/10 Reclining chair to bed unable due to anxiety and pain worsening to 8/10 Gait: Unable due to anxiety and pain worsening to 8/10. Will reassess in an hour. Balance: Static Sitting: Good Dynamic Sitting: Fair Static Standing: Unable Dynamic Standing: Unable Special Tests: Mobility Limitations Standardized Measure [facility] AM-PAC 6 clicks Basic Mobility Inpatient Short Form: Raw Score: 11 CMS Score: 72% deficit Informed Consent/Education: Patient was instructed in purpose of PT consult and plan of care. Agreeable to proceed with established PT POC to achieve personal goals. Assessment: Limited by pain. Will reassess mobility after pain medication effect is optimized and patient has eaten. Anxious about putting weight and about falling. range of motion on the hip limited by 50%. Patient presents with clinical signs and symptoms consistent with current/admitting diagnoses that have resulted to mobility limitations, gait instability, generalized weakness, and overall ADL decline as demonstrated by the following impairment level findings: 1. Decreased strength to R hip major muscle groups 2. Impaired sitting/standing balance 3. Impaired activity tolerance 4. Limitation of joint range of motion in R hip 5. Pain in R buttock area and posterior hip Impairments are contributing to the following functional limitations: 1. Decline in bed mobility skills 2. Decline in transfer skills 3. Difficulty with ambulation without assistive device and physical assistance 4. Increased completion time for mobility ADL performance 5. Increased risk for falls 6. Difficulty with managing steps alone safely Patient is assessed as a 89861 moderate complexity based on the following: History: 77-year-old female with past medical history as indicated above Examination: Demonstrable impairment in strength, balance, and mobility level with underlying impairments and functional limitations as exhibited above as well as deficit score of 72% utilizing the [facility] Mobility Inpatient Short Form Presentation: Evolving Decision Makin moderate complexity Goals: Goals X1 week 1. Supine-Sit independent 2. Sit-Supine independent 3. Sit-Stand independent 4. Stand-Sit independent with FWW 5. Bed-Chair independent with FWW 6. Chair-Bed independent with FWW 7. Independent gait on level surface with use of FWW for at least 30 feet without report of pain nor dyspnea Plan of Care/Treatment Plan: Will plan on doing a one-time treatment to educate patient on safe mobility performance using FWW. DISCHARGE RECOMMENDATIONS: [] Home with no services [] [] Home with services [specify] [] Home with outpatient PT [] [] SNF for continued rehabilitation [] [] [facility] Care [] [] SNF versus LTC based on ability to participate and progress [] [X] SNF vs med surg admission for continued mobility progression, strengthening, ADL retraining, and fall reduction strategies. Will plan to re-evalaute patient if admitted to med surg when another referral is received. TREATMENT CODE/TIME: 20469 x 20 minutes, 05400 x 14 minutes beginning at 8:20 AM. Thank you for the opportunity to participate in the care of this patient. Eneida Butcher PT, DPT, CLT [facility] [place], [place]
[2023-06-13] MEDS: Metoprolol 50 MG TAB 100 MG PO (09:19)
[2023-06-13] MEDS: glipiZIDE 10 MG TAB PO (09:19)
[2023-06-13] MEDS: Citalopram 20 MG TAB PO (09:19)
[2023-06-13] MEDS: Levothyroxine 100 MCG TAB PO (09:19)
[2023-06-13] MEDS: Furosemide 20 MG TAB PO (09:20)
--- NOTE | 2023-06-13 11:06 | NUR.NOTE ---
Nursing Note: Pt comfortable in bed and understands next steps of care. Pt ate breakfast prior to this RN taking report. Pt comfortable with plan to go home. Pt denies needs at this time and pt awaiting MD plan of care.
--- NOTE | 2023-06-13 11:45 | INDS_ITS ---
Date of service: 06/13/23 Time of Service: 11:45 PT Notes Visit Reasons: [facility] Physical Therapy ED Discharge Summary Date: 06/13/2023 Dates of Service: 06/13/2023 only Referring Doctor:? Nabeel Pearson,? PT Orders: PT CONSULT: Safety COnsult for D/C Precautions: Fall. Standard. Activity as tolerated. Patient Profile/Admitting Diagnosis:? Patient is a 77-year-old female patient with past medical history sognifincat for CHF,? AF,? and squamous cell CA who presented to the ED Tuesday at 1 AM after falling at home Tuesday afternoon.? Patient was also found to have mild urinary tract infection with x-ray and CT scan unrevealing? for fracture,? subluxation, nor dislocation.? PMHX: All Active Problems?(Updated 06/13/23 @ 07:32 by Nabeel Pearson DO) Acute pain of right hip (Acute) Anemia (Chronic) CHF (congestive heart failure) (Chronic) Atrial fibrillation with RVR (Acute) Leucocytosis (Acute) DVT prophylaxis (Acute) Acute dyspnea (Acute) Pleural effusion (Acute) Diabetes mellitus (Chronic) Medical History? 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 visit S/P breast lumpectomy S/P skin and subcutaneous tissue surgery Social History/Home Situation: Lives with in a private home with 2 steps to enter.? Independent with all aspects of ADLs prior to admission.? Has a 4WW which she rarely used. Equipment Owned/DME: FWW Subjective: Upon return by PT after about 1.5 hours, patient remained highly anxious but with encouragement by PT and Nurse Oscar was able to brave stadning up and walking. Happy that she did. impressed with how much improvement she had. Reported pain at 4-5/10 with walking, a much reduced report from 8/10 earlier today. Objective: General Observation: Supine in bed.? Anxious about moving right lower extremity.? Mental Status: Alert and oriented as to person, place, time, and purpose. Able to pay attention, focus, and respond appropriately. Pain: /10 at ret, 02/23 with weight bearing Vital Signs: Closely monitored by nursing staff ROM: Right Lower Extremity: Hip flexion up to 90 degrees only limited by pain report. Hip abduction less than 10 degrees. Knee flexion up to 100 degrees. Ankle dorsiflexion to neutral only. Ankle plantarflexion WFL. Left Lower Extremity: Hip flexion WFL. Hip abduction WFL. Knee flexion WFL. Ankle dorsiflexion WFL. Ankle plantarflexion WFL. Strength: Right Lower Extremity: Hip flexors 3-/5. Hip abductors 2-/5. Knee flexors 3-/5. Knee extensors 3-/5. Ankle dorsiflexors 3-/5. Ankle plantarflexors 3-/5. Left Lower Extremity: Hip flexors 4-/5. Hip abductors 4-/5. Knee flexors 4-/5. Knee extensors 3-/5. Ankle dorsiflexors 3-/5. Ankle plantarflexors 4-/5. Bed Mobility/Transfers: Supine to sit contact guard assist Sit to supine contact guard assist Sit to stand contact guard assist with FWW Stand to sit contact guard assist with FWW Gait: 25 feet + 25 feet using FWW and contact guard assist. /10 pain in outer side of hip and R buttock. Balance: Static Sitting: Good Dynamic Sitting: Fair Static Standing: Fair Dynamic Standing: Fair Special Tests: Mobility Limitations Standardized Measure [facility] 6 clicks Basic Mobility Inpatient Short Form: Raw Score: 18? CMS Score: 47% deficit? ? ? Assessment: Performance much improved with pain managed better. able to provide contact guard assist at home for patien for essential transfers/ambulation. HH PT recommended for continued mobility progression and strengthening. Patient presents with clinical signs and symptoms consistent with current/admitting diagnoses that have resulted to mobility limitations, gait instability, generalized weakness, and overall ADL decline as demonstrated by the following impairment level findings: 1.? Decreased strength to R hip major muscle groups 2.? Impaired sitting/standing balance 3.? Impaired activity tolerance 4.? Limitation of joint range of motion in R hip 5.? Pain in R buttock area and posterior hip Impairments are contributing to the following functional limitations: 1.? Decline in bed mobility skills 2.? Decline in transfer skills 3.? Difficulty with ambulation without assistive device and physical assistance 4.? Increased completion time for mobility ADL performance 5.? Increased risk for falls 6.? Difficulty with managing steps alone safely Goals: Goals X1 week 1. Supine-Sit independent NOT MET, CONTINUE WITH HH PT 2. Sit-Supine independent NOT MET, CONTINUE WITH HH PT 3. Sit-Stand independent NOT MET, CONTINUE WITH HH PT 4. Stand-Sit independent with FWW NOT MET, CONTINUE WITH HH PT 5. Bed-Chair independent with FWW NOT MET, CONTINUE WITH HH PT 6. Chair-Bed independent with FWW NOT MET, CONTINUE WITH HH PT 7. Independent gait on level surface with use of FWW for at least 30 feet without report of pain nor dyspnea NOT MET, CONTINUE WITH HH PT DISCHARGE RECOMMENDATIONS: [] ? Home with no services [] [X] ? Home with services. Patient will benefit from home health PT services in order to progress mobility level using least restrictive assistive ambulatory device, assess home safety, identify additional equipment needs, and establish a functional maintenance program that will increase ability of patient to remain at home. [] ? Home with outpatient PT [] [] ? SNF for continued rehabilitation [] [] ? Care Home Care [] [] ? SNF versus LTC based on ability to participate and progress [] TREATMENT CODE/TIME: 70024 x 19 minutes beginning at 11:45 AM. Thank you for the opportunity to participate in the care of this patient. Eneida Butcher PT, DPT, CLT [facility] [place], [place]
--- NOTE | 2023-06-13 12:16 | ED.PROG_ITS ---
Date of service: 06/13/23 Time of Service: 12:36 Medical Decision Making Care was signed out by Dr. Pearson, please see his documentation regarding ED course. Plan at signout was to await PT evaluation. Patient had some discomfort this morning and requested additional analgesic. Patient was given Toradol IV. Patient was given home medications as prescribed. Patient was seen by PT who did a full evaluation and recommend walker change and discharge home with home health PT referral. Plan will be to treat for urinary tract infection with cephalexin. Usual customary discharge instructions provided and reviewed by nursing with the patient. Lab Data Lab results reviewed: Yes I reviewed the patient's lab results. Labs: 06/12/23 22:15 Urine - Reflex from Ua Urine Culture - Pending Laboratory Tests Range/Units 06/12/23 06/12/23 06/12/23 20:42 20:42 22:15 WBC (4.4-10.8) 10^3/uL 10.99 H RBC (3.93-5.22) 10^6/uL 3.38 L Hgb (11.2-15.7) g/dL 9.3 L Hct (36.0-46.0) % 29.9 L MCV (80-95) fL 89 MCH (27.0-33.0) pg 27.5 MCHC (32.0-36.0) % 31.1 L RDW (11.7-14.6) % 15.1 H Plt Count (130-400) 10^3/uL 223 MPV (8.0-11.0) fL 9.4 Immature Gran % 0.4 Neutrophils % 77.3 Lymphocytes % 15.9 Monocytes % 5.0 Eosinophils % 1.0 Basophils % 0.4 Nucleated RBC % (0.0-0.3) % 0.0 Absolute Neutrophils (1.2-6.7) 10^3/uL 8.50 H Absolute Lymphocytes (1.2-3.4) 10^3/uL 1.75 Absolute Monocytes (0.1-0.8) 10^3/uL 0.55 Absolute Eosinophils (0.0-0.7) 10^3/uL 0.11 Absolute Basophils (0.0-0.2) 10^3/uL 0.04 Sodium (136-145) mmol/L 135 L Potassium (3.5-5.1) mmol/L 4.4 Chloride (98-107) mmol/L 101 Carbon Dioxide (21.0-32.0) mmol/L 22.8 Anion Gap (3-11) mmol/L 11.2 H BUN (7-18) mg/dL 20 H Creatinine (0.55-1.02) mg/dL 1.2 H Est GFR (CKD-EPI 2020) (mL/min/1.73m2) 46.05 Glucose (74-106) mg/dL 183 H Calcium (8.5-10.1) mg/dL 10.0 Magnesium (1.8-2.4) mg/dL 1.5 L Total Bilirubin (0.2-1.0) mg/dL 0.4 AST (15-37) U/L 13 L ALT (14-59) U/L 11 L Alkaline Phosphatase (46-116) U/L 103 Creatine Kinase (26-192) U/L 159 Total Protein (6.4-8.2) g/dL 7.5 Albumin (3.4-5.0) g/dL 3.2 L Urine Color (Yellow) Yellow Urine Clarity (Clear) Clear Urine pH (5-8) 6.0 Ur Specific [place] (1.005-1.025) 1.015 Urine Protein (Negative) mg/dL Negative Urine Ketones (Negative) mg/dL Trace H Urine Blood (Negative) Negative Urine Nitrite (Negative) Positive H Urine Bilirubin (Negative) Negative Urine Urobilinogen (Up to 0.2) mg/dL 0.2 Ur Leukocyte Esterase (Negative) Small H Urine RBC (0-2) HPF Negative Urine WBC (0-5) HPF 10-20 H Ur Epithelial Cells (Negative) HPF Rare Urine Crystals (Negative) HPF Negative Urine Bacteria (Negative) HPF Many Urine Casts (Negative) LPF Negative Urine Mucus (Negative) Negative Ur Culture Indicated? Yes Urine Glucose (Negative) mg/dL Negative Sign Out Sign Out Data: Sign Out Comment: Right hip pain, CT negative for fracture. Arthritis noted. Pending PT eval, patient also has urinary tract infection. Last updated by Nabeel Pearson DO at 06/13/23 07:32 Discharge Plan Disposition Patient Disposition: Home Condition: Stable Discharge Details Clinical Impression: Acute pain of right hip, Acute UTI Primary Care Provider: Geovanna Anders ED Provider: Beto Joshi Home Meds and New Rx's Prescriptions: New ibuprofen 600 mg tablet 600 mg PO Q8H PRNQty: 21 0RF cephalexin 500 mg capsule 500 mg PO BID Qty: 13 0RF Continued lisinopril 10 mg tablet 10 mg PO DAILY levothyroxine 100 mcg capsule 100 mcg PO DAILY citalopram 20 mg tablet 20 mg PO DAILY mirtazapine 7.5 mg tablet 1 tab PO HS Patient Comments: Take 1 tablet by mouth every night ferrous gluconate 324 mg (38 mg iron) Tablet 27 mg PO DAILY cholecalciferol (vitamin D3) [Vitamin D3] 50 mcg (2,000 unit) Tablet 50 mcg PO BID metoprolol succinate 100 mg Tablet Extended Release 24 Hr 100 mg PO BID Qty: 0 0RF glipizide 10 mg Tablet 10 mg PO BID metformin 1,000 mg Tablet 1,000 mg PO BID simvastatin 20 mg tablet 20 mg PO HS furosemide 20 mg tablet 20 mg PO DAILY Patient Comments: TAKE ONE TABLET BY MOUTH ONCE DAILY NEEDED FOR SWELLING Discontinued ergocalciferol (vitamin D2) 1,250 mcg (50,000 unit) capsule 1 cap PO DAILY Patient Comments: not taking Discharge Instructions Instructions: Urinary Tract Infection in Women (ED), Fall Prevention for Older Adults (ED), Leg Pain (ED) Additional Instructions: Please use new walker as reviewed with physical therapy. Please take full course of antibiotic to treat urinary tract infection as prescribed. Please contact your primary care physician to arrange follow-up. Return to the ER immediately for any worsening or new concerning symptoms. Referrals: Geovanna Anders [Primary Care Provider] -
== END 2023-06-13 12:38 | disposition home or self-care (01) ==
PROVIDERS: Student in an Organized Health Care Education/Training Program; Emergency Provider Student in an Organized Health Care Education/Training Program; PCP Nurse Practitioner Family
DX: M79.604 Pain in right leg (principal); W19.XXXA Unspecified fall, initial encounter; N39.0 Urinary tract infection, site not specified; I50.9 Heart failure, unspecified; I48.91 Unspecified atrial fibrillation; E11.9 Type 2 diabetes mellitus without complications; Z79.899 Other long term (current) drug therapy
CPT/HCPCS: 36415; 80053; 82550; 87077; 96361; 96365; 96375; 97162; 97530; 99285; 73502; 73700; 81003; 81015; 83735; 85025; 87086; 87186; 99284; J1100; J1885

== ENCOUNTER 2023-06-17 11:10 | Observation (INO) | payer MEDICARE, SELFPAY ==
[2023-06-17 11:12] VITALS: BP 151/97; PULSE 82; RESP 18; TEMP 36.9; O2SAT 100
--- NOTE | 2023-06-17 11:24 | ED.GENADUL_ITS ---
Discharge Plan Disposition Patient Disposition: Admit to [facility] Condition: Stable Discharge Details Clinical Impression: Acute pain of right hip Primary Care Provider: Geovanna Anders ED Provider: Patrick Medina Home Meds and New Rx's Prescriptions: No Action lisinopril 10 mg tablet 10 mg PO DAILY levothyroxine 100 mcg capsule 100 mcg PO DAILY citalopram 20 mg tablet 20 mg PO DAILY mirtazapine 7.5 mg tablet 1 tab PO HS Patient Comments: Take 1 tablet by mouth every night ferrous gluconate 324 mg (38 mg iron) Tablet 27 mg PO DAILY cholecalciferol (vitamin D3) [Vitamin D3] 50 mcg (2,000 unit) Tablet 50 mcg PO BID metoprolol succinate 100 mg Tablet Extended Release 24 Hr 100 mg PO BID Qty: 0 0RF glipizide 10 mg Tablet 10 mg PO BID metformin 1,000 mg Tablet 1,000 mg PO BID simvastatin 20 mg tablet 20 mg PO HS furosemide 20 mg tablet 20 mg PO DAILY Patient Comments: TAKE ONE TABLET BY MOUTH ONCE DAILY NEEDED FOR SWELLING ibuprofen 600 mg tablet 600 mg PO Q8H PRNQty: 21 0RF cephalexin 500 mg capsule 500 mg PO BID Qty: 13 0RF Medical Decision Making 77 yo female with hx of afib not on anticoagulation, prior squamous cell cancer of scalp, who comes in with continued right leg pain. Was seen earlier this week after she had a fall and states she's had pain in her right hip/thigh since. She denies fevers, chills, leg swelling. No abdomen pain or chest pain or dyspnea. She localizes the pain to the mid anterior right thigh and lateral right hip. She has full rom of the hip, knee, ankle. No leg swelling and no calf tenderness. No warmth or erythema, intact sensation. She had xray and CT of her hip earlier this week that was negative for fracture, will obtain femur xray and reassess. xray unremarkable, pt stable. Discussed with pt and her at bedside, she is not comfortable being discharged, will have care management eval care management met with pt and requested PT eval. PT evaluated and states patient unable to ambulate due to pain and recommends admisssion for pain control. Will discuss with hospitalist about admission. Dr. Crowe accepts, requests ortho consult as well. Discussed case with Dr. Bryant who reviewed images and did not recommend MRI at this point, states pt does have arthritis which is likely the cause of her symptoms, recommends nsaids and working with PT, doesn't feel an aspiration or injection or other intervention indicated at this time. Differential Diagnosis Differential Diagnosis: contusion, spasm, fracture Medical Records Medical records reviewed: Yes I reviewed the patient's medical records. HPI General Mode of arrival: EMS . Date/Time Provider Initiated Documentation: 06/17/23 11:13 . Limitations to Documentation: no limitations . Information obtained by: patient . History of Present Illness 77 year old F presents to the emergency department with the chief complaint of right leg pain, described as moderate, Quality is described as aching, and is localized to the right and lower extremity. Patient reports no radiation. Patient started experiencing this week(s) (2) and it has been constant. Rest improves symptom(s), Movement worsens symptoms . Patient notes no other symptoms.. Patient did receive the following treatments prior to arrival, none Related Data Home Medications Medication Instructions Recorded Confirmed glipizide 10 mg tablet 10 mg PO BID 07/12/21 06/17/23 metformin 1,000 mg tablet 1,000 mg PO BID 07/12/21 06/17/23 cholecalciferol (vitamin D3) 50 50 mcg PO BID 05/07/22 06/17/23 mcg (2,000 unit) tablet (Vitamin D3) ferrous gluconate 324 mg (38 mg 27 mg PO DAILY 05/07/22 06/17/23 iron) tablet mirtazapine 7.5 mg tablet 1 tab PO HS 05/07/22 06/17/23 metoprolol succinate 100 mg 100 mg PO BID #0 tabs 05/08/22 06/17/23 tablet,extended release 24 hr citalopram 20 mg tablet 20 mg PO DAILY 12/30/22 06/17/23 levothyroxine 100 mcg capsule 100 mcg PO DAILY 12/30/22 06/17/23 lisinopril 10 mg tablet 10 mg PO DAILY 12/30/22 06/17/23 simvastatin 20 mg tablet 20 mg PO HS 12/30/22 06/17/23 furosemide 20 mg tablet 20 mg PO DAILY 06/12/23 06/17/23 cephalexin 500 mg capsule 500 mg PO BID #13 caps 06/13/23 06/17/23 ibuprofen 600 mg tablet 600 mg PO Q8H PRN #21 tabs 06/13/23 06/17/23 Previous Rx's Medication Instructions Recorded metoprolol succinate 100 mg 100 mg PO BID #0 tabs 05/08/22 tablet,extended release 24 hr cephalexin 500 mg capsule 500 mg PO BID #13 caps 06/13/23 ibuprofen 600 mg tablet 600 mg PO Q8H PRN #21 tabs 06/13/23 Allergies Allergy/AdvReac Type Severity Reaction Status Date / Time famotidine Allergy Severe Verified 12/30/22 14:13 doxazosin [From Cardura] Allergy Intermediate Verified 12/30/22 14:13 sitagliptin [From Januvia] Allergy Intermediate Verified 12/30/22 14:13 empagliflozin Allergy Verified 12/30/22 14:13 [From Jardiance] General Stated Complaint: Orthopedic ZAKIA: 4 Review of Systems All systems reviewed & are unremarkable except as noted in HPI and below Constitutional Constitutional: Denies chills, Denies fever(s) and Denies weakness Cardiovascular Cardiovascular: Denies chest pain and Denies dyspnea Respiratory Respiratory: Denies cough and Denies dyspnea Gastrointestinal Gastrointestinal: Denies abdominal pain, Denies nausea and Denies vomiting Musculoskeletal Musculoskeletal: Denies joint swelling Neurologic Neurologic: Denies weakness PFSH All Active Problems (Updated 06/17/23 @ 14:51 by Patrick Medina MD) Acute pain of right hip (Acute) Acute UTI (Acute) Acute pain of right hip (Acute) Anemia (Chronic) CHF (congestive heart failure) (Chronic) Atrial fibrillation with RVR (Acute) Leucocytosis (Acute) DVT prophylaxis (Acute) Acute dyspnea (Acute) Pleural effusion (Acute) Diabetes mellitus (Chronic) Medical History Abnormal finding on breast imaging Acute CHF Atrial fibrillation Breast cancer Discharge planning issues Glaucoma Goiter HTN (hypertension) Hypercholesterolemia Osteopenia Squamous cell cancer of scalp and skin of neck Trochanteric bursitis Surgical History S/P breast lumpectomy S/P skin and subcutaneous tissue surgery Social History Smoking/Tobacco Use Status: Never Smoking risk assessment performed?: Yes Alcohol Intake: never Drug use: Never Substance use type: does not use Housing: apartment Do you feel safe at home: Yes Do you feel safe in your relationship?: Yes Exam Const General: no acute distress Orientation: alert HENMT Ears: external ears normal General nose exam: external nose normal Mouth: moist mucous membranes Eyes General: appearance normal, both eyes and all related structures Neck Neck: normal visual inspection Resp Effort & Inspection: normal respiratory effort and able to speak in complete sentences Auscultation: clear to auscultation bilaterally Cardio Rate: regular rate GI Palpation: soft and nontender Skin General skin exam: no rashes or lesions noted Neuro General: patient alert and patient oriented x3 Extrem General: normal to inspection, full ROM and capillary refill normal Psych Mental Status: mental status grossly normal Course Vital Signs Vital signs: Vital Signs Temperature 36.9 C 06/17/23 11:12 Pulse 82 06/17/23 11:12 Respiratory Rate 18 06/17/23 11:12 Blood Pressure 151/97 H 06/17/23 11:12 Pulse Oximetry 100 06/17/23 11:12 Temperature 36.9 C 06/17/23 11:12 Temperature Source Oral 06/17/23 11:12 Pulse 82 06/17/23 11:12 Respiratory Rate 18 06/17/23 11:12 Respiratory Effort Normal, Non-Labored 06/17/23 11:16 Blood Pressure 151/97 H 06/17/23 11:12 Blood Pressure Position Sitting 06/17/23 11:12 Pulse Oximetry 100 06/17/23 11:12 Oxygen Delivery Method Room Air 06/17/23 11:12 Oxygen Flow Rate 0 06/17/23 11:12 Pain Level 2 06/17/23 11:12
[2023-06-17] MEDS: Ibuprofen 600 MG TAB PO ×2 (11:30→21:15)
[2023-06-17] MEDS: Lidocaine 5% Patch 1 PATCH TP (11:30)
--- NOTE | 2023-06-17 12:03 | DI.RAD_ITS ---
Exam(s) XR FEMUR RT EXAM: XR FEMUR RT CLINICAL HISTORY: pain s/p fall. TECHNIQUE: 2D digital imaging was performed. AP and lateral views. COMPARISON: CT CT LOWER EXTREMITY RT WO from 06/12/2023 CR,XR XR HIP RT COMPLETE AP PELVIS from 06/12/2023 FINDINGS: BONES: No acute fracture is present. No bony destructive lesion is seen. JOINTS: Degenerative changes noted at the knee. Mild degenerative changes at the hip. SOFT TISSUE: Vascular calcifications. IMPRESSION: Degenerative changes. No acute abnormality. DATA REPOSITORY: RADIATION DOSE DELIVERED:
[2023-06-17] MEDS: MORPHine 4 MG/ML SYR IM (13:48)
--- NOTE | 2023-06-17 14:09 | PT.INIE ---
PT Notes Visit Reasons: [facility] Initial Evaluation Date: 06/17/2023 Referring Doctor: Dr. Patrick Medina PT Orders: PT CONSULT: Safety Consult for D/C Precautions: Fall. Standard. Activity as tolerated. Patient Profile/Admitting Diagnosis: Patient is a 77-year-old female patient with past medical history signifincat for CHF, AF, and squamous cell CA who presented to the ED Tuesday at 1 AM after falling at home Tuesday afternoon. Patient was also found to have mild urinary tract infection with x-ray and CT scan unrevealing for fracture, subluxation, nor dislocation. She was able to return home, and presents again today with poorly controlled RLE pain and inability to ambulate. PT consult requested for assessment of mobility for discharge planning. PMHX: All Active Problems?(Updated 06/13/23 @ 07:32 by Nabeel Pearson DO) Acute pain of right hip (Acute) Anemia (Chronic) CHF (congestive heart failure) (Chronic) Atrial fibrillation with RVR (Acute) Leucocytosis (Acute) DVT prophylaxis (Acute) Acute dyspnea (Acute) Pleural effusion (Acute) Diabetes mellitus (Chronic) Medical History? 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 visit S/P breast lumpectomy S/P skin and subcutaneous tissue surgery Social History/Home Situation: Lives with in a private home with 2 steps to enter. Independent with all aspects of ADLs prior to a few weeks ago, with declining mobility in that interval. Has a 4WW which she rarely used. Equipment Owned/DME: FWW, 4WW Subjective: Patient reports right thigh pain with weight bearing, absent at rest. Denies numbness or tingling. States that she is completely unable to walk, and has been relying on her to help her into the seat of her rollator to get around. Her states that transfers have been increasingly difficult, and Arlene has had several falls, in fact 2 this week. Arlene is extremely fearful of falling. Objective: General Observation: Supine in bed. Anxious about sitting up to edge of bed. Mental Status: Alert and oriented as to person, place, time, and purpose. Able to pay attention, focus, and respond appropriately. Pain: 10/10 with standing Vital Signs: Closely monitored by nursing staff ROM: Right Lower Extremity: Hip flexion up to 90 degrees, minimal pain. Hip abduction to 20 degrees. Hip IR 15*, ER 40*. Knee flexion up to 100 degrees. Ankle dorsiflexion to neutral only. Ankle plantarflexion WFL. Left Lower Extremity: Hip flexion WFL. Hip abduction WFL. Knee flexion WFL. Ankle dorsiflexion WFL. Ankle plantarflexion WFL. SLR allows 45* with mild exacerbation of thigh pain; alleviated with traction. Trunk sidebending assessed in sitting; tolerates right side bending without exacerbation of pain. Strength: Right Lower Extremity: Hip flexors 4-/5. Hip abductors 2-/5. Knee flexors 4-/5. Knee extensors 3+/5. Ankle dorsiflexors 5/5. Ankle plantarflexors 4+/5. EHL 5/5. Left Lower Extremity: Hip flexors 4-/5. Hip abductors 4-/5. Knee flexors 4-/5. Knee extensors 4/5. Ankle dorsiflexors 5/5. Ankle plantarflexors 4+/5. EHL 5/5 Bed Mobility/Transfers: Supine to sit moderate assist Sit to supine moderate assist x 2 Sit to stand minimal assist with cues provided to use B UE for support and limit RLE weight bearing Stand to sit minimal assist with cues proviede to use B UE for support Bed to bedside commode unable due to anxiety Gait: Unable due to anxiety and pain. Patient stands briefly at EOB with mod A x 2 and bilat UE support to standard walker. She requires continuous cues to avoid weight bearing to RLE, and becomes increasingly anxious, quicky sitting to EOB and transferring to supine in poorly controlled descent. Balance: Static Sitting: Good Dynamic Sitting: Fair Static Standing: Unable Dynamic Standing: Unable Special Tests: Mobility Limitations Standardized Measure [facility] AM-PAC 6 clicks Basic Mobility Inpatient Short Form: Raw Score: 11 CMS Score: 72% deficit Informed Consent/Education: Patient was instructed in purpose of PT consult and plan of care. Agreeable to proceed with established PT POC to achieve personal goals. Assessment: Patient's mobility severely limited by pain. She has been experiencing increasing frequency of falls at home, and is demonstrating fear avoidance behaviors with severe anxiety around attempts to walk or transfer. I suspect that her mobility will significantly improve as her pain becomes better managed. She does not demonstrate sufficient mobility to return home at this time, and recommend admission for pain management. Patient presents with clinical signs and symptoms consistent with current/admitting diagnoses that have resulted to mobility limitations, gait instability, generalized weakness, and overall ADL decline as demonstrated by the following impairment level findings: 1. Decreased strength to R hip major muscle groups 2. Impaired sitting/standing balance 3. Impaired activity tolerance 4. Limitation of joint range of motion in R hip 5. Pain Impairments are contributing to the following functional limitations: 1. Decline in bed mobility skills 2. Decline in transfer skills 3. Difficulty with ambulation without assistive device and physical assistance 4. Increased completion time for mobility ADL performance 5. Increased risk for falls 6. Difficulty with managing steps alone safely Patient is [place] a [id number] moderate complexity based on the following: History: 77-year-old female with past medical history as indicated above Examination: Demonstrable impairment in strength, balance, and mobility level with underlying impairments and functional limitations as exhibited above as well as deficit score of 72% utilizing the [facility] Mobility Inpatient Short Form Presentation: Evolving Decision Makin moderate complexity Plan of Care/Treatment Plan: One time consult for mobility assessment for discharge planning. DISCHARGE RECOMMENDATIONS: [] Home with no services [] [] Home with services [specify] [] Home with outpatient PT [] [] SNF for continued rehabilitation [] [] [employer] [facility] [] [] SNF versus LTC based on ability to participate and progress [] [X] SNF vs med surg admission for continued mobility progression, strengthening, ADL retraining, and fall reduction strategies. Will plan to re-evalaute patient if admitted to med surg when another referral is received. TREATMENT CODE/TIME: 21826 ([id number]) Thank you for the opportunity to participate in the care of this patient. Cecilia Jung, PT, DPT [facility] [place], [place]
[2023-06-17 15:20] VITALS: BP 151/53; PULSE 85; RESP 18; TEMP 36.8; O2SAT 98
[2023-06-17 15:28] LABS: Abs Immature Grans 0.07 10^3/uL (0.0-0.06); Absolute Basophil Count 0.06 10^3/uL (0.0-0.2); Absolute Eosinophil Count 0.25 10^3/uL (0.0-0.7); Absolute Monocyte Count 0.61 10^3/uL (0.1-0.8); Basophils % 0.4; Eosinophils % 1.8; HCT 32.2 % (36.0-46.0); Immature Grans % 0.5; Lymphocytes % 12.8; MCH 27.6 pg (27.0-33.0); MCHC 31.1 % (32.0-36.0); MCV 89 fL (80-95); MPV 9.3 fL (8.0-11.0); Monocytes % 4.3; Neutrophils % 80.2; Platelet Count 257 10^3/uL (130-400); RBC 3.62 10^6/uL (3.93-5.22); RDW 15.5 % (11.7-14.6); RDW-SD 50.5 fL; WBC 14.09 10^3/uL (4.4-10.8)
[2023-06-17 15:40] LABS: Anion Gap 13.7 mmol/L (3-11); BUN 20 mg/dL (7-18); C-Reactive Protein 1.47 mg/dL (0.0-0.3); CO2 23.3 mmol/L (21.0-32.0); CREATININE 1.3 mg/dL (0.55-1.02); Calcium 9.7 mg/dL (8.5-10.1); Chloride 100 mmol/L (98-107); Estimated GFR 41.83 (mL/min/1.73m2); Glucose 179 mg/dL (74-106); Potassium 4.1 mmol/L (3.5-5.1); Sodium 137 mmol/L (136-145)
[2023-06-17 15:44] LABS: ALT 11 U/L (14-59); AST 11 U/L (15-37); Albumin 3.2 g/dL (3.4-5.0); Alkaline Phosphatase 95 U/L (46-116); Bilirubin, Direct 0.1 mg/dL (0.0-0.2); Bilirubin, Total 0.4 mg/dL (0.2-1.0); Total Protein 7.3 g/dL (6.4-8.2)
[2023-06-17 16:00] LABS: Procalcitonin < 0.1 ng/mL
[2023-06-17 16:06] VITALS: BP 159/69; PULSE 72; RESP 16; TEMP 36.5; O2SAT 98
--- NOTE | 2023-06-17 16:11 | OCONE_ITS ---
Date of service: 06/17/23 Time of Service: 16:11 Assessment and Plan Assessment and plan (1) Acute pain of right hip: Status: Acute Assessment and plan: 77-year-old female with right thigh pain about 1 week in duration possibly relating to a fall, orthopedics not on-call, patient being admitted to hospitalist service for pain control. Discussed with emergency room provider. Hip and knee exam reassuring, both passive and active range of motion well- tolerated, good range of motion and strength. Chart and imaging reviewed. Moderate hip and knee arthritis on x-rays. Could be arthritic flare versus muscle or tendon injury from fall. Recommend multimodal pain control typically with acetaminophen and NSAIDs. Physical therapy evaluation: Weightbearing as tolerated with assist device as needed. CT scan done 06/12/21 does not show any fractures or obvious muscle or tendon injury. Bones are significantly demineralized. If pain persists, recommend repeat imaging or MRI to evaluate for occult fracture or soft tissue injury. PFSH All Active Problems (Updated 06/17/23 @ 14:51 by Patrick Medina MD) Acute pain of right hip (Acute) Acute UTI (Acute) Acute pain of right hip (Acute) Anemia (Chronic) CHF (congestive heart failure) (Chronic) Atrial fibrillation with RVR (Acute) Leucocytosis (Acute) DVT prophylaxis (Acute) Acute dyspnea (Acute) Pleural effusion (Acute) Diabetes mellitus (Chronic) Medical History Abnormal finding on breast imaging Acute CHF Atrial fibrillation Breast cancer Discharge planning issues Glaucoma Goiter HTN (hypertension) Hypercholesterolemia Osteopenia Squamous cell cancer of scalp and skin of neck Trochanteric bursitis Surgical History S/P breast lumpectomy S/P skin and subcutaneous tissue surgery Social History Smoking/Tobacco Use Status: Never Smoking risk assessment performed?: Yes Alcohol Intake: never Drug use: Never Substance use type: does not use Housing: apartment Do you feel safe at home: Yes Do you feel safe in your relationship?: Yes Results Last Vital Signs Temp 98.2 F 06/17/23 15:20 Pulse 85 06/17/23 15:20 Resp 18 06/17/23 15:20 BP 151/53 H 06/17/23 15:20 Pulse Ox 98 06/17/23 15:20 Labs 06/17/23 15:21 06/17/23 15:21 Labs: Laboratory Results - last 24 hr 06/17/23 06/17/23 06/17/23 15:21 15:21 15:21 WBC RBC Hgb Hct MCV MCH MCHC RDW Plt Count MPV Immature Gran % Neutrophils % Lymphocytes % Monocytes % Eosinophils % Basophils % Nucleated RBC % Absolute Neutrophils Absolute Lymphocytes Absolute Monocytes Absolute Eosinophils Absolute Basophils Sodium 137 Potassium 4.1 Chloride 100 Carbon Dioxide 23.3 Anion Gap 13.7 H BUN 20 H Creatinine 1.3 H Est GFR (CKD-EPI 2020) 41.83 Glucose 179 H Calcium 9.7 Total Bilirubin 0.4 Conjugated Bilirubin 0.1 AST 11 L ALT 11 L Alkaline Phosphatase 95 C-Reactive Protein 1.47 H Total Protein 7.3 Albumin 3.2 L Procalcitonin < 0.1 06/17/23 15:21 WBC 14.09 H RBC 3.62 L Hgb 10.0 L Hct 32.2 L MCV 89 MCH 27.6 MCHC 31.1 L RDW 15.5 H Plt Count 257 MPV 9.3 Immature Gran % 0.5 Neutrophils % 80.2 Lymphocytes % 12.8 Monocytes % 4.3 Eosinophils % 1.8 Basophils % 0.4 Nucleated RBC % 0.0 Absolute Neutrophils 11.30 H Absolute Lymphocytes 1.80 Absolute Monocytes 0.61 Absolute Eosinophils 0.25 Absolute Basophils 0.06 Sodium Potassium Chloride Carbon Dioxide Anion Gap BUN Creatinine Est GFR (CKD-EPI 2020) Glucose Calcium Total Bilirubin Conjugated Bilirubin AST ALT Alkaline Phosphatase C-Reactive Protein Total Protein Albumin Procalcitonin
--- NOTE | 2023-06-17 17:13 | HPE_ITS ---
Date of service: 06/17/23 Time of Service: 17:13 Assessment and Plan Assessment and plan (1) Acute pain of right hip: Status: Acute Assessment and plan: Appears to be osteoarthritis related pain. She has had mild trauma to the area from these 3 or 4 falls. There is no evidence of a fracture. Per orthopedics if she has continued pain into next week consider an MRI although it is likely that this would be a nonsurgical fracture even if a minor fracture was found. We will continue ibuprofen and acetaminophen for pain control. She has a lidocaine patch. She is in no pain at rest. She may need to be medicated prior to physical therapy. We will try to have her work with physical therapy and gain strength and confidence in that right leg. (2) Anemia: Status: Chronic Assessment and plan: Hemoglobin is 10.0. She has been running around 9.5-10 over the last several months. She is still iron deficient. We will continue iron replacement. (3) Diabetes mellitus: Status: Chronic Assessment and plan: Diabetic diet. Continue the metformin and glipizide. We will have her on fingersticks before meals and sliding scale insulin moderate. Qualifiers: Diabetes mellitus type: type 2 Diabetes mellitus retirement insulin use: without intermediate frame tender use History of Present Illness History of Present Illness Chief Complaint: Right hip pain/frequent falls Narrative: 77-year-old woman who has had 3-4 falls in the last few weeks. The first was when she was going to the bathroom and her right leg gave out. Since that time she has been afraid to walk. It is given out on at least 2 other occasions. She was seen in the ED last week and had a CT scan that showed no fracture. She continues with right leg pain and her does not feel he can take care of her at home with this condition. In the ED she had another x-ray of the right leg that did not show a fracture. Orthopedics waited in after reviewing the films and felt that continuing on NSAID medications with physical therapy and continued pain control would be warranted. She is admitted to observation status. Review of Systems Narrative: Generally well. She recounts the fear that she has about falling. She describes a severe catching/painful feeling in her right hip just prior to fall ing. She has no pain at rest. She has no chest pain, no shortness of breath. No abdominal or digestive problems. She can move both lower extremities with freedom of movement though the right seems to be weaker. She has not had any episodes of congestive heart failure since the anemia back in April 2022. She had a colonoscopy done in [facility]. She said that did not find anything. He has been on iron supplements since that time and trying to eat a better diet. All systems reviewed & are unremarkable except as noted in HPI and below PFSH All Active Problems (Updated 06/17/23 @ 17:22 by Patrick Hathaway MD) Acute pain of right hip (Acute) Anemia (Chronic) Diabetes mellitus (Chronic) Medical History (Updated 06/17/23 @ 17:22 by Patrick Hathaway MD) Abnormal finding on breast imaging Acute CHF Acute dyspnea Acute pain of right hip Acute UTI Atrial fibrillation Atrial fibrillation with RVR Related hg 5.7, isolated Breast cancer CHF (congestive heart failure) related to Hg 5.7. Resolved. Nl echo Discharge planning issues DVT prophylaxis Glaucoma Goiter HTN (hypertension) Hypercholesterolemia Leucocytosis Osteopenia Pleural effusion Squamous cell cancer of scalp and skin of neck Trochanteric bursitis Surgical History S/P breast lumpectomy S/P skin and subcutaneous tissue surgery Social History Smoking/Tobacco Use Status: Never Smoking risk assessment performed?: Yes Alcohol Intake: never Drug use: Never Substance use type: does not use Housing: house Do you feel safe at home: Yes Do you feel safe in your relationship?: Yes Meds Allergies and Home Medications Allergies Allergy/AdvReac Type Severity Reaction Status Date / Time famotidine Allergy Severe Verified 12/30/22 14:13 doxazosin [From Cardura] Allergy Intermediate Verified 12/30/22 14:13 sitagliptin [From Januvia] Allergy Intermediate Verified 12/30/22 14:13 empagliflozin Allergy Verified 12/30/22 14:13 [From Jardiance] Home Medications Medication Instructions Recorded Confirmed Type glipizide 10 mg tablet 10 mg PO BID 07/12/21 06/17/23 History metformin 1,000 mg tablet 1,000 mg PO BID 07/12/21 06/17/23 History cholecalciferol (vitamin D3) 50 50 mcg PO BID 05/07/22 06/17/23 History mcg (2,000 unit) tablet (Vitamin D3) ferrous gluconate 324 mg (38 mg 27 mg PO DAILY 05/07/22 06/17/23 History iron) tablet mirtazapine 7.5 mg tablet 1 tab PO HS 05/07/22 06/17/23 History metoprolol succinate 100 mg 100 mg PO BID #0 tabs 05/08/22 06/17/23 Rx tablet,extended release 24 hr citalopram 20 mg tablet 20 mg PO DAILY 12/30/22 06/17/23 History levothyroxine 100 mcg capsule 100 mcg PO DAILY 12/30/22 06/17/23 History lisinopril 10 mg tablet 10 mg PO DAILY 12/30/22 06/17/23 History simvastatin 20 mg tablet 20 mg PO HS 12/30/22 06/17/23 History furosemide 20 mg tablet 20 mg PO DAILY 06/12/23 06/17/23 History cephalexin 500 mg capsule 500 mg PO BID #13 caps 06/13/23 06/17/23 Rx ibuprofen 600 mg tablet 600 mg PO Q8H PRN #21 tabs 06/13/23 06/17/23 Rx Exam Narrative Exam Narrative: She has a scalp scar from her squamous cell carcinoma that takes over the entire top of her head. At the very crest is a shallow ulceration about 3 x 2 cm that does not appear infected and does not look like malignancy. The remainder of her scalp is normal. She had no facial asymmetry. Neck was very full. Lungs were completely clear and dry bilaterally. Heart sounds were regular with no murmur. Abdomen is quite markedly obese but overall nontender. No masses were appreciated. The lower extremities appear symmetrical. She could flex the left leg at the knee to about 90 degrees. The right leg was more difficult for her and only flexed about 45 degrees. She dorsa and plantarflexed her feet liberally without any decrement of motion. There was good lower extremity perfusion. She had no lower extremity edema. Neurologically there were no fo adalberto deficits. Results Labs 06/17/23 15:21 06/17/23 15:21 Labs: Laboratory Results - last 24 hr 06/17/23 06/17/23 06/17/23 15:21 15:21 15:21 WBC RBC Hgb Hct MCV MCH MCHC RDW Plt Count MPV Immature Gran % Neutrophils % Lymphocytes % Monocytes % Eosinophils % Basophils % Nucleated RBC % Absolute Neutrophils Absolute Lymphocytes Absolute Monocytes Absolute Eosinophils Absolute Basophils Sodium 137 Potassium 4.1 Chloride 100 Carbon Dioxide 23.3 Anion Gap 13.7 H BUN 20 H Creatinine 1.3 H Est GFR (CKD-EPI 2020) 41.83 Glucose 179 H Calcium 9.7 Total Bilirubin 0.4 Conjugated Bilirubin 0.1 AST 11 L ALT 11 L Alkaline Phosphatase 95 C-Reactive Protein 1.47 H Total Protein 7.3 Albumin 3.2 L Procalcitonin < 0.1 06/17/23 15:21 WBC 14.09 H RBC 3.62 L Hgb 10.0 L Hct 32.2 L MCV 89 MCH 27.6 MCHC 31.1 L RDW 15.5 H Plt Count 257 MPV 9.3 Immature Gran % 0.5 Neutrophils % 80.2 Lymphocytes % 12.8 Monocytes % 4.3 Eosinophils % 1.8 Basophils % 0.4 Nucleated RBC % 0.0 Absolute Neutrophils 11.30 H Absolute Lymphocytes 1.80 Absolute Monocytes 0.61 Absolute Eosinophils 0.25 Absolute Basophils 0.06 Sodium Potassium Chloride Carbon Dioxide Anion Gap BUN Creatinine Est GFR (CKD-EPI 2020) Glucose Calcium Total Bilirubin Conjugated Bilirubin AST ALT Alkaline Phosphatase C-Reactive Protein Total Protein Albumin Procalcitonin Last Vital Signs Temp 36.5 C 06/17/23 16:06 Pulse 72 06/17/23 16:06 Resp 16 06/17/23 16:06 BP 159/69 H 06/17/23 16:06 Pulse Ox 98 06/17/23 16:06 PAWSS Pt Consumed Any Amount of Alcohol Within the Last 30 days OR had positive DARRELL Upon Admission: No Time Spent Time spent with Patient: 40-54 minutes Time was spent: preparing to see the patient(eg.review tests), obtaining and/or reviewing separately otained hiistory, ordering medications,tests, procedures, referring, communicating with other health home care giver, indepentently interpreting results and counseling the patient
[2023-06-17] MEDS: glipiZIDE 5 MG TAB 10 MG PO (19:10)
[2023-06-17] MEDS: Cholecalciferol (Vitamin D3) 1,000 UNIT TAB 2000 UNITS PO (21:13)
[2023-06-17] MEDS: Metoprolol CR 100 MG TABCR PO (21:14)
[2023-06-17] MEDS: Mirtazapine 15 MG TAB 7.5 MG PO (21:14)
[2023-06-17] MEDS: metFORMIN C.R. 500 MG TABCR PO (21:15)
[2023-06-17] MEDS: Simvastatin 20 MG TAB PO (21:15)
[2023-06-17] MEDS: Heparin 5,000 UNITS/ML VIAL 5000 UNITS SC (21:15)
[2023-06-18] MEDS: Ibuprofen 600 MG TAB PO ×3 (03:32→21:14)
[2023-06-18 03:54] VITALS: BP 178/90; PULSE 54; RESP 20; TEMP 36.6; O2SAT 98
[2023-06-18] MEDS: Levothyroxine 100 MCG TAB PO (06:23)
[2023-06-18] MEDS: Heparin 5,000 UNITS/ML VIAL 5000 UNITS SC ×3 (06:23→21:16)
[2023-06-18 07:32] LABS: Abs Immature Grans 0.09 10^3/uL (0.0-0.06); Absolute Basophil Count 0.07 10^3/uL (0.0-0.2); Absolute Eosinophil Count 0.45 10^3/uL (0.0-0.7); Absolute Lymphocyte Count 2.08 10^3/uL (1.2-3.4); Absolute Monocyte Count 0.79 10^3/uL (0.1-0.8); Basophils % 0.5; Eosinophils % 3.4; HCT 34.5 % (36.0-46.0); HGB 10.3 g/dL (11.2-15.7); Immature Grans % 0.7; Lymphocytes % 15.9; MCH 27.3 pg (27.0-33.0); MCHC 29.9 % (32.0-36.0); MCV 92 fL (80-95); MPV 9.8 fL (8.0-11.0); Neutrophils % 73.5; Platelet Count 316 10^3/uL (130-400); RBC 3.77 10^6/uL (3.93-5.22); RDW 15.9 % (11.7-14.6); RDW-SD 52.1 fL; WBC 13.11 10^3/uL (4.4-10.8)
[2023-06-18 07:36] LABS: Absolute Neutrophil Count 9.64 10^3/uL (1.2-6.7)
[2023-06-18] MEDS: glipiZIDE 5 MG TAB 10 MG PO ×2 (07:47→17:26)
[2023-06-18] MEDS: Cholecalciferol (Vitamin D3) 1,000 UNIT TAB 2000 UNITS PO ×2 (07:47→21:14)
[2023-06-18] MEDS: Metoprolol CR 100 MG TABCR PO ×2 (07:47→21:15)
[2023-06-18] MEDS: Ferrous Gluconate 324 MG TAB PO (07:47)
[2023-06-18] MEDS: Citalopram 20 MG TAB PO (07:48)
[2023-06-18] MEDS: metFORMIN C.R. 500 MG TABCR PO (07:48)
[2023-06-18] MEDS: Lisinopril 10 MG TAB PO (07:48)
[2023-06-18 07:52] VITALS: BP 129/85; PULSE 67; RESP 18; TEMP 36.3; O2SAT 99
[2023-06-18 07:53] LABS: Anion Gap 12.5 mmol/L (3-11); BUN 27 mg/dL (7-18); CO2 23.5 mmol/L (21.0-32.0); CREATININE 1.6 mg/dL (0.55-1.02); Chloride 101 mmol/L (98-107); Glucose 231 mg/dL (74-106); Magnesium 1.7 mg/dL (1.8-2.4); Potassium 4.7 mmol/L (3.5-5.1); Sodium 137 mmol/L (136-145)
[2023-06-18] MEDS: metFORMIN C.R. 500 MG TABCR 1000 MG PO ×2 (09:11→21:14)
[2023-06-18] MEDS: Magnesium Oxide 400 MG TAB PO ×2 (09:11→21:14)
--- NOTE | 2023-06-18 09:43 | INITIAL_ITS ---
Date of service: 06/18/23 Time of Service: 09:43 Care Management Initial Assmt Initial Assessment REASON FOR HOSPITALIZATION:: Intractable R Hip Pain PREVIOUS FUNCTIONAL STATUS/SOCIAL/FAMILY SUPPORTS:: Arlene lives in [place], [place] with her , Quirino who is supportive of her healthcare needs and transports her to all her doctors appointments. They reside in a private home with 2 steps to enter. Arlene was independent with all aspects of ADLs prior to a few weeks ago, with declining mobility prior to admission. CURRENT FUNCTIONAL STATUS:: Per PT: Patient reports right thigh pain with weight bearing, absent at rest. Denies numbness or tingling. States that she is completely unable to walk, and has been relying on her to help her into the seat of her rollator to get around at home proir to admission. Her states that transfers have been increasingly difficult, and Arlene has had several falls, in fact 2 this week. Arlene is extremely fearful of falling. ADVANCE DIRECTIVES:: None on file. Has patient been provided with info about the portal/API?: Yes Did the patient sign up for the portal?: No CODE STATUS:: Full Code INSURANCE COVERAGE / FINANCIAL ISSUES:: Medicare CURRENT HOME/COMMUNITY SERVICES/EQUIPMENT:: 4WW: rarely used. PRIMARY CARE PHYSICIAN:: Geovanna Anders: [facility] POTENTIAL DISCHARGE NEEDS:: Follow up appointments, PT evaluation. PATIENT/FAMILY EDUCATION NEEDS:: Review discharge instructions, discuss Ask Me Three. ANTICIPATED BARRIERS TO DISCHARGE:: Frequent falls, pain management, possible need for MRI. TRANSPORTATION:: To be determined by disposition and mobility. PLAN:: Pain management and mobilization with PT; awaiting evaluations to inform discharge planning considerations. CM continues to follow. PFSH All Active Problems (Updated 06/17/23 @ 17:22 by Patrick Hathaway MD) Acute pain of right hip (Acute) Anemia (Chronic) Diabetes mellitus (Chronic) Medical History (Updated 06/17/23 @ 17:22 by Patrick Hathaway MD) Abnormal finding on breast imaging Acute CHF Acute dyspnea Acute pain of right hip Acute UTI Atrial fibrillation Atrial fibrillation with RVR Related hg 5.7, isolated Breast cancer CHF (congestive heart failure) related to Hg 5.7. Resolved. Nl echo Discharge planning issues DVT prophylaxis Glaucoma Goiter HTN (hypertension) Hypercholesterolemia Leucocytosis Osteopenia Pleural effusion Squamous cell cancer of scalp and skin of neck Trochanteric bursitis Surgical History S/P breast lumpectomy S/P skin and subcutaneous tissue surgery Social History Smoking/Tobacco Use Status: Never Smoking risk assessment performed?: Yes Alcohol Intake: never Drug use: Never Substance use type: does not use Housing: house Do you feel safe at home: Yes Do you feel safe in your relationship?: Yes
--- NOTE | 2023-06-18 10:51 | IN_ITS ---
Date of service: 06/18/23 Time of Service: 10:15 PT Notes Visit Reasons: Intracable R Hip Pain Inpatient Physical Therapy Evaluation Date: June 18, 2023 Referring Doctor: Morena Orellana PT Orders: PT CONSULT: limited ability Precautions: Standard, Falls, Activity as tolerated. Patient Profile/Admitting Diagnosis:?Patient is a 77-year-old female patient with past medical history signifincat for CHF,? AF,? and squamous cell CA who presented to the ED Tuesday at 1 AM after falling at home Tuesday afternoon.? Patient was also found to have mild urinary tract infection with x-ray and CT scan unrevealing? for fracture,? subluxation, nor dislocation. She was able to return home, and presented to ED again yesterday with poorly controlled RLE pain and inability to ambulate. PMHX: All Active Problems?(Updated 06/13/23 @ 07:32 by Nabeel Pearson DO) Acute pain of right hip (Acute) Anemia (Chronic) CHF (congestive heart failure) (Chronic) Atrial fibrillation with RVR (Acute) Leucocytosis (Acute) DVT prophylaxis (Acute) Acute dyspnea (Acute) Pleural effusion (Acute) Diabetes mellitus (Chronic) Medical History? 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 visit S/P breast lumpectomy S/P skin and subcutaneous tissue surgery Social History/Home Situation: Lives with in a private home with 2 steps to enter.? Independent with all aspects of ADLs prior to a few weeks ago, with declining mobility in that interval.? Has a 4WW which she rarely used. Equipment Owned/DME: FWW, 4WW Subjective: Patient reports right thigh pain with weight bearing, absent at rest. Denies numbness or tingling. States that she is completely unable to walk, and has been relying on her to help her into the seat of her rollator to get around at home proir to admission. Her states that transfers have been increasingly difficult, and Arlene has had several falls, in fact 2 this week. Arlene is extremely fearful of falling. Objective: General Observation: Supine in bed.? Mental Status: Alert and oriented as to person, place, time, and purpose. Able to pay attention, focus, and respond appropriately. Pain: Declines any pain at time of evaluation ROM: Right Upper Extremity: Demonstrates WFL R UE ROM Left Upper Extremity: Limited GH forward elevation and abduction. Able to reach behind her head and to L2 Right Lower Extremity: Hip flexion up to 90 degrees, minimal pain. Hip abduction to 30 degrees. Hip IR 15*, ER 40*. Knee flexion up to 100 degrees. Ankle dorsiflexion to neutral only. Ankle plantarflexion WFL. Left Lower Extremity: Hip flexion WFL. Hip abduction WFL. Knee flexion WFL. Ankle dorsiflexion WFL. Ankle plantarflexion WFL. SLR allows 45* with mild exacerbation of thigh pain; alleviated with traction. Trunk sidebending assessed in sitting; tolerates right side bending without exacerbation of pain. Strength: Right Upper Extremity: Demonstrates grossly 4/5 R UE myotomes without pain Left Upper Extremity: Shoulder Flexion 4-/5, abduction 4-/5, ER 3+/5, IR 5/5 Right Lower Extremity: Hip flexors 4-/5. Hip abductors 3/5. Knee flexors 4-/5. Knee extensors 4/5. Ankle dorsiflexors 5/5. Ankle plantarflexors 4+/5. EHL 5/5. Left Lower Extremity: Hip flexors 4-/5. Hip abductors 4-/5. Knee flexors 4-/5. Knee extensors 4/5. Ankle dorsiflexors 5/5. Ankle plantarflexors 4+/5. EHL 5/5 Bed Mobility/Transfers: Supine to sit moderate assistx1 no complaints of pain Sit to stand minimal assist with cues provided to use B UE for support WBAT bilateral LE Stand to sit minimal assist with cues provided to use B UE for support, minimal control upon decent Bed to chair FWW WBAT mod A x2 Gait: Patient was able to transfer bed to chair ~ 5 steps with use of FWW WBAT bilateral LE with modA x2. Balance: Static Sitting: Good Dynamic Sitting: Good Static Standing: Fair Dynamic Standing: Poor Special Tests: Mobility Limitations Standardized Measure [facility] AM-PAC 6 clicks Basic Mobility Inpatient Short Form: Raw Score: 13 ? CMS Score: 65% deficit? ? ? Informed Consent/Education:?Patient was instructed in purpose of PT consult and plan of care. Agreeable to proceed with established PT POC to achieve personal goals. Assessment: Patient presents with clinical signs and symptoms consistent with cur rent/admitting diagnoses that have resulted to mobility limitations, gait instability, generalized weakness, and overall ADL decline as demonstrated by the following impairment level findings: 1.? Decreased strength to R hip major muscle groups 2.? Impaired standing balance 3.? Impaired activity tolerance 4.? Limitation of joint range of motion in R hip 5.? Pain with weight bearing Impairments are contributing to the following functional limitations: 1.? Decline in bed mobility skills 2.? Decline in transfer skills 3.? Difficulty with ambulation without assistive device and physical assistance 4.? Increased completion time for mobility ADL performance 5.? Increased risk for falls 6.? Difficulty with managing steps alone safely Patient is assessed as a [id number] moderate complexity based on the following: History: 77-year-old female with past medical history as indicated above Examination: Demonstrable impairment in strength, balance, and mobility level with underlying impairments and functional limitations as exhibited above as well as deficit score of 65% utilizing the [facility] Mobility Inpatient Short Form Presentation: Evolving Decision Makin moderate complexity Goals: Goals X1 week 1. Supine-Sit independent 2. Sit-Supine independent 3. Sit-Stand independent with FWW 4. Stand-Sit independent with FWW 5. Bed-Chair independent with FWW 6. Chair-Bed independent with FWW 7.?Supervision with gait on level surface with use of FWW for at least 300 feet without report of pain nor dyspnea Plan of Care/Treatment Plan: 1-2x/day, 7 days/week x 1 week. Plan of care has been reviewed with the CHIPPER OPERATOR providing the service under Physical Therapy direction. Initiate Physical Therapy intervention for strengthening, bed mobility, transfers, gait, stairs, balance training, use of assistive device. TREATMENT CODE/TIME: [id number] ([id number]) 30 minutes Thank you for the opportunity to participate in the care of this patient. Aihca Burkett, MPT [facility] [place], [place] Disclaimer: This note was created using Dragon voice recognition software. It was reviewed for major content. However, there may be multiple small discrepancies and errors due to the voice recognition aspects of the software.
[2023-06-18] MEDS: Insulin Aspart 300 UNITS/3 ML PEN SC ×2 (12:13→21:15)
[2023-06-18 12:51] LABS: Bilirubin Negative (Negative); Blood Negative (Negative); Clarity Sl Cloudy (Clear); Glucose Negative (Negative); Ketones Negative (Negative); Leukocyte Esterase Moderate (Negative); Nitrite Negative (Negative); Urobilinogen 0.2 mg/dL (Up to 0.2); pH 5.5 (5-8)
[2023-06-18 13:04] LABS: Epithelial Cells Few HPF (Negative); RBC 0-2 HPF (0-2)
[2023-06-18 13:05] LABS: Bacteria Few HPF (Negative); Crystals Few Amorphous HPF (Negative); Mucus Negative (Negative); Other Cells Moderate Renal (Negative)
[2023-06-18 13:06] LABS: C & S Indicated? Yes
[2023-06-18 13:07] LABS: Casts 0-2 Hyaline LPF (Negative)
--- NOTE | 2023-06-18 14:34 | W.PM.PROGNOT ---
Date of Service Date of service: 06/18/23 Time of Service: 14:34 Assessment and Plan Assessment and plan (1) Acute pain of right hip: Status: Acute Assessment and plan: If continued pain into next week consider an MRI Continue ibuprofen and acetaminophen for pain control, continue lidocaine patch. Comfortable at rest. Conitnue to work with PT (2) Anemia: Status: Chronic Assessment and plan: At baseline - continue iron replacement. (3) Diabetes mellitus: Status: Chronic Assessment and plan: Diabetic diet. Continue the metformin and glipizide. Continue SSI Discussed with Dr Orellana Qualifiers: Diabetes mellitus retirement insulin use: without drafter plumbing use Diabetes mellitus type: type 2 Subjective Subjective Patient reports: no new complaints, pain is less, tolerating a regular diet, voiding w/o difficulty, bowel movement and afebrile; denies flatus, diarrhea, nausea or vomiting Interval history since last seen: Pleasant, alert, states her hipe feels better, less pain. Exam Const General: no acute distress Orientation: alert HENCT Head: scalp lesion (scalp lesion removed about 3 years ago and has Lg healed skin graft) Ears: external ears normal General nose exam: external nose normal Mouth: moist mucous membranes Eyes General: appearance normal, both eyes and all related structures Neck Neck: normal visual inspection Resp Effort & Inspection: normal respiratory effort and able to speak in complete sentences Auscultation: clear to auscultation bilaterally Cardio Rate: regular rate GI Palpation: soft and nontender Skin General skin exam: no rashes or lesions noted Neuro General: patient alert and patient oriented x3 Extrem General: normal to inspection, full ROM and capillary refill normal Psych Mental Status: mental status grossly normal Objective Last Vital Signs Temp 36.3 C L 06/18/23 07:52 Pulse 67 06/18/23 07:52 Resp 18 06/18/23 07:52 BP 129/85 06/18/23 07:52 Pulse Ox 99 06/18/23 07:52 Laboratory Results - last 24 hr 06/17/23 06/17/23 06/17/23 15:21 15:21 15:21 WBC RBC Hgb Hct MCV MCH MCHC RDW Plt Count MPV Immature Gran % Neutrophils % Lymphocytes % Monocytes % Eosinophils % Basophils % Nucleated RBC % Absolute Neutrophils Absolute Lymphocytes Absolute Monocytes Absolute Eosinophils Absolute Basophils Sodium 137 Potassium 4.1 Chloride 100 Carbon Dioxide 23.3 Anion Gap 13.7 H BUN 20 H Creatinine 1.3 H Est GFR (CKD-EPI 2020) 41.83 Glucose 179 H Calcium 9.7 Magnesium Total Bilirubin 0.4 Conjugated Bilirubin 0.1 AST 11 L ALT 11 L Alkaline Phosphatase 95 C-Reactive Protein 1.47 H Total Protein 7.3 Albumin 3.2 L Procalcitonin < 0.1 Urine Color Urine Clarity Urine pH Ur Specific [place] Urine Protein Urine Ketones Urine Blood Urine Nitrite Urine Bilirubin Urine Urobilinogen Ur Leukocyte Esterase Urine RBC Urine WBC Ur Epithelial Cells Urine Crystals Urine Bacteria Urine Casts Urine Mucus Urine Other Ur Culture Indicated? Urine Glucose 06/17/23 06/18/23 06/18/23 15:21 07:13 07:13 WBC 14.09 H 13.11 H RBC 3.62 L 3.77 L Hgb 10.0 L 10.3 L Hct 32.2 L 34.5 L MCV 89 92 MCH 27.6 27.3 MCHC 31.1 L 29.9 L RDW 15.5 H 15.9 H Plt Count 257 316 MPV 9.3 9.8 Immature Gran % 0.5 0.7 Neutrophils % 80.2 73.5 Lymphocytes % 12.8 15.9 Monocytes % 4.3 6.0 Eosinophils % 1.8 3.4 Basophils % 0.4 0.5 Nucleated RBC % 0.0 0.0 Absolute Neutrophils 11.30 H 9.64 H Absolute Lymphocytes 1.80 2.08 Absolute Monocytes 0.61 0.79 Absolute Eosinophils 0.25 0.45 Absolute Basophils 0.06 0.07 Sodium 137 Potassium 4.7 Chloride 101 Carbon Dioxide 23.5 Anion Gap 12.5 H BUN 27 H Creatinine 1.6 H Est GFR (CKD-EPI 2020) 32.60 Glucose 231 H Calcium 10.0 Magnesium 1.7 L Total Bilirubin Conjugated Bilirubin AST ALT Alkaline Phosphatase C-Reactive Protein Total Protein Albumin Procalcitonin Urine Color Urine Clarity Urine pH Ur Specific [place] Urine Protein Urine Ketones Urine Blood Urine Nitrite Urine Bilirubin Urine Urobilinogen Ur Leukocyte Esterase Urine RBC Urine WBC Ur Epithelial Cells Urine Crystals Urine Bacteria Urine Casts Urine Mucus Urine Other Ur Culture Indicated? Urine Glucose 06/18/23 12:21 WBC RBC Hgb Hct MCV MCH MCHC RDW Plt Count MPV Immature Gran % Neutrophils % Lymphocytes % Monocytes % Eosinophils % Basophils % Nucleated RBC % Absolute Neutrophils Absolute Lymphocytes Absolute Monocytes Absolute Eosinophils Absolute Basophils Sodium Potassium Chloride Carbon Dioxide Anion Gap BUN Creatinine Est GFR (CKD-EPI 2020) Glucose Calcium Magnesium Total Bilirubin Conjugated Bilirubin AST ALT Alkaline Phosphatase C-Reactive Protein Total Protein Albumin Procalcitonin Urine Color Yellow Urine Clarity Sl Cloudy Urine pH 5.5 Ur Specific [place] 1.020 Urine Protein Trace H Urine Ketones Negative Urine Blood Negative Urine Nitrite Negative Urine Bilirubin Negative Urine Urobilinogen 0.2 Ur Leukocyte Esterase Moderate H Urine RBC 0-2 Urine WBC 5-10 Ur Epithelial Cells Few Urine Crystals Few Amorphous Urine Bacteria Few Urine Casts 0-2 Hyaline Urine Mucus Negative Urine Other Moderate Renal Ur Culture Indicated? Yes Urine Glucose Negative PAWSS Pt Consumed Any Amount of Alcohol Within the Last 30 days OR had positive DARRELL Upon Admission: No Time Spent with Patient Time Spent with Patient: 35-49 minutes Time was spent: preparing to see the patient(eg.review tests), ordering medications,tests, procedures, referring, communicating with other health home care provider, indepentently interpreting results, counseling the patient and care coordination
[2023-06-18 15:52] VITALS: BP 104/69; PULSE 56; RESP 18; TEMP 37.1; O2SAT 100
[2023-06-18 21:12] VITALS: BP 109/74; PULSE 96; RESP 18; TEMP 36.5; O2SAT 99
[2023-06-18] MEDS: Simvastatin 20 MG TAB PO (21:14)
[2023-06-18] MEDS: Mirtazapine 15 MG TAB 7.5 MG PO (21:15)
[2023-06-18] MEDS: Insulin Glargine 300 UNITS/3 ML PEN SC (21:16)
--- NOTE | 2023-06-19 | DI.CT_ITS ---
Exam(s) CT RENAL COLIC WO EXAM: CT RENAL COLIC WO CLINICAL HISTORY: UTI. TECHNIQUE: Imaging Protocol: Axial computed tomography images with coronal and sagittal reformatted images were created and reviewed. COMPARISON: No exams were available for comparison FINDINGS: The examination is limited due to patient motion artifact. ABDOMEN: Lung Bases: Normal where visualized. Liver: Normal density. No measurable mass. Gallbladder and biliary tract: No radiodense calculus or biliary ductal dilation. Pancreas: Pancreatic atrophy is present. Spleen: Normal. Kidneys: Normal size, contour and axis.No radiodense stones or obstructive uropathy. No masses seen. Adrenal glands: No mass is seen. Lymph nodes: Within normal limits. Abdominal Aorta: Abdominal portion non-dilated. Atherosclerosis. PELVIS: Bladder:Symmetric distention, no gross wall thickening. There is a small focus of air in the urinary bladder. This may be secondary to recent catheterization. Please correlate clinically. Bowel: No obstruction or bowel wall thickening. No evidence of appendicitis. Peritoneal cavity: No ascites, collection or mesenteric inflammatory response. No free air. Reproductive organs: Unremarkable as visualized. Bones: Within normal limits. Mild anterolisthesis of L4 on L5. Soft Tissues: Within normal limits. IMPRESSION: 1. Small focus of air in the urinary bladder which could be secondary to prior instrumentation or inf ection. Please correlate clinically. 2. No evidence of nephrolithiasis or hydronephrosis. RADIATION DOSE DELIVERED: 1,120.45mGy.cm Total DLP DATA REPOSITORY: All CT scans at this facility are submitted to the National Radiology Data Registry (NRDR) Dose Index Registry (DIR) with the [employer] (A[employer]). RADIATION OPTIMIZATION: All CT scans at this facility use at least one of these dose optimization te chniques: automated exposure control; mA and/or kV adjustment per patient size (includes targeted exa ms where dose is matched to clinical indication); or iterative reconstruction.
[2023-06-19] MEDS: Ibuprofen 600 MG TAB PO ×4 (01:05→20:43)
[2023-06-19] MEDS: Heparin 5,000 UNITS/ML VIAL 5000 UNITS SC ×3 (05:15→20:43)
[2023-06-19] MEDS: Levothyroxine 100 MCG TAB PO (05:15)
[2023-06-19 07:17] LABS: Abs Immature Grans 0.04 10^3/uL (0.0-0.06); Absolute Basophil Count 0.06 10^3/uL (0.0-0.2); Absolute Eosinophil Count 0.49 10^3/uL (0.0-0.7); Absolute Monocyte Count 0.76 10^3/uL (0.1-0.8); Absolute Neutrophil Count 7.12 10^3/uL (1.2-6.7); Basophils % 0.6; Eosinophils % 4.5; HCT 31.5 % (36.0-46.0); HGB 9.6 g/dL (11.2-15.7); Immature Grans % 0.4; Lymphocytes % 21.6; MCH 27.7 pg (27.0-33.0); MCHC 30.5 % (32.0-36.0); MCV 91 fL (80-95); MPV 10.1 fL (8.0-11.0); Neutrophils % 65.9; Platelet Count 236 10^3/uL (130-400); RBC 3.46 10^6/uL (3.93-5.22); RDW-SD 52.1 fL; WBC 10.81 10^3/uL (4.4-10.8)
[2023-06-19 07:21] LABS: Absolute Lymphocyte Count 2.33 10^3/uL (1.2-3.4)
[2023-06-19 07:30] LABS: Anion Gap 11.1 mmol/L (3-11); BUN 37 mg/dL (7-18); C-Reactive Protein 1.42 mg/dL (0.0-0.3); CO2 24.9 mmol/L (21.0-32.0); CREATININE 2.1 mg/dL (0.55-1.02); Calcium 9.6 mg/dL (8.5-10.1); Chloride 104 mmol/L (98-107); Estimated GFR 23.53 (mL/min/1.73m2); Glucose 87 mg/dL (74-106); Potassium 3.9 mmol/L (3.5-5.1); Sodium 140 mmol/L (136-145)
[2023-06-19] MEDS: glipiZIDE 5 MG TAB 10 MG PO ×2 (07:30→16:32)
[2023-06-19 07:37] VITALS: BP 117/71; PULSE 80; RESP 17; TEMP 36.2; O2SAT 96
[2023-06-19] MEDS: Magnesium Oxide 400 MG TAB PO ×2 (08:18→20:42)
[2023-06-19] MEDS: Citalopram 20 MG TAB PO (08:18)
[2023-06-19] MEDS: Cholecalciferol (Vitamin D3) 1,000 UNIT TAB 2000 UNITS PO ×2 (08:19→20:43)
[2023-06-19] MEDS: Metoprolol CR 100 MG TABCR PO ×2 (08:19→20:42)
[2023-06-19] MEDS: Lisinopril 10 MG TAB PO (08:19)
[2023-06-19] MEDS: Ferrous Gluconate 324 MG TAB PO (08:20)
[2023-06-19] MEDS: metFORMIN C.R. 500 MG TABCR 1000 MG PO ×2 (08:20→20:43)
[2023-06-19] MEDS: Insulin Aspart 300 UNITS/3 ML PEN SC (11:36)
--- NOTE | 2023-06-19 11:56 | PT.INTREAT ---
Date of service: 06/19/23 Time of Service: 11:30 PT Notes Visit Reasons: Intracable R Hip Pain Inpatient Physical Therapy Treatment Note [facility] Date: June 19, 2023 PRECAUTIONS:[place] SUBJECTIVE: Arlene reports continued improvement. Got up this morning to eat breakfast. Declines any pain right hip OBJECTIVE: ? Therapeutic Activities (60867q7-00 minutes): Direct one-on-one instruction in dynamic activities to improve functional performance. ?? BED MOBILITY/TRANSFERS? Rolling L/R: Independent Supine-sit: Independent? Sit-supine: Independent ? Sit-stand: CGA with FWW ? Stand-sit: CGA? Bed-Chair: minAx1 with FWW ? Provided skilled cues and instruction on performance and technique throughout. ? GAIT? Assistive Device: FWW ? Weight bearing: FWB Assist: CGA ? Distance:? 25ftx2 ? Deviation: decreased rodolfo, WBOS ? Therapeutic Exercises ([id number] minutes): Direct one-on-one instruction in therapeutic exercises to develop strength, endurance, range of motion and flexibility. ? Exercises ankle pumps x20 reps, SLR x10 reps, Glut sets x10, Heel slides x10, LAQ x10, Seated december x10, Standing hip flexion right x10, left x2. No complaints of pain however increased difficulty supporting her weight on R LE. Hip abduction seated x10, hip adduction x10. ? Provided skilled instruction in proper exercise performance Provided skilled manual cues to facilitate proper muscle recruitment ASSESSMENT:? Arlene demonstrated improved bed mobility and functional transfers. Improved gait with use of FWW. Continued difficulty standing on R LE with standing hip flexion on contralateral side. PLAN: Continue with current POC. Focusing on improved functional mobility. TREATMENT CODE/TIME: 87175b0(10 minutes);32583s4(15minutes) 25 minutes; 11:30 am GUME Manjarrez
[2023-06-19 15:21] VITALS: BP 116/73; PULSE 60; RESP 17; TEMP 36.4; O2SAT 99
--- NOTE | 2023-06-19 15:47 | PGE_ITS ---
Date of Service Date of service: 06/19/23 Time of Service: 15:47 Assessment and Plan Assessment and plan (1) Acute pain of right hip: Status: Acute Assessment and plan: If continued pain into next week consider an MRI Continue ibuprofen and acetaminophen for pain control, continue lidocaine patch. Comfortable at rest. Continue to work with PT (2) Anemia: Status: Chronic Assessment and plan: At baseline - continue iron replacement. (3) Diabetes mellitus: Status: Chronic Assessment and plan: Diabetic diet. Continue the metformin and glipizide. Continue SSI Discussed with Dr Orellana Qualifiers: Diabetes mellitus correction insulin use: without correction use Diabetes mellitus type: type 2 (4) Acute UTI: Assessment and plan: Urine cx negative - no abx Renal CT : Small foci of air in the urinary bladder noted, which may be secondary to prior instrumentation or gas-forming bacteria. Correlate with clinical laboratory findings and clinical history. No nephrolithiasis or hydronephrosis. Subjective Subjective Patient reports: no new complaints, feels better, pain is less, tolerating a regular diet, voiding w/o difficulty, bowel movement and afebrile; denies diarrhea, nausea or vomiting Interval history since last seen: Arlene states she is feeling better and is able to work with PT today. She is motivated to get home. She will be discharged tomorrow am with home health PT Objective Last Vital Signs Temp 36.4 C L 06/19/23 15:21 Pulse 60 06/19/23 15:21 Resp 17 06/19/23 15:21 BP 116/73 06/19/23 15:21 Pulse Ox 99 06/19/23 15:21 Laboratory Results - last 24 hr 06/19/23 06/19/23 06:30 06:30 WBC 10.81 H RBC 3.46 L Hgb 9.6 L Hct 31.5 L MCV 91 MCH 27.7 MCHC 30.5 L RDW 16.0 H Plt Count 236 MPV 10.1 Immature Gran % 0.4 Neutrophils % 65.9 Lymphocytes % 21.6 Monocytes % 7.0 Eosinophils % 4.5 Basophils % 0.6 Nucleated RBC % 0.0 Absolute Neutrophils 7.12 H Absolute Lymphocytes 2.33 Absolute Monocytes 0.76 Absolute Eosinophils 0.49 Absolute Basophils 0.06 Sodium 140 Potassium 3.9 Chloride 104 Carbon Dioxide 24.9 Anion Gap 11.1 H BUN 37 H Creatinine 2.1 H Est GFR (CKD-EPI 2020) 23.53 Glucose 87 Calcium 9.6 Magnesium 2.0 C-Reactive Protein 1.42 H PAWSS Pt Consumed Any Amount of Alcohol Within the Last 30 days OR had positive DARRELL Upon Admission: No Time Spent with Patient Time Spent with Patient: 25-34 minutes Time was spent: preparing to see the patient(eg.review tests), ordering medications,tests, procedures, referring, communicating with other health healthcare administrator, indepentently interpreting results, counseling the patient and care coordination
--- NOTE | 2023-06-19 17:06 | DI.VRAD_ITS ---
PROCEDURE INFORMATION: Exam: CT Abdomen And Pelvis Without Contrast Exam date and time: 06/19/2023 4:04 PM Age: 77 years old Clinical indication: UTI TECHNIQUE: Imaging protocol: Computed tomography of the abdomen and pelvis without contrast. COMPARISON: CR XR HIP RT COMPLETE AP PELVIS 06/12/2023 8:59 PM FINDINGS: Limitations: The lack of intravenous contrast limits evaluation of the solid organs. Liver: Unremarkable liver. No mass identified. Gallbladder and bile ducts: The gallbladder is unremarkable. No calcified stones. No ductal dilation. Pancreas: No ductal dilation. No pancreatic lesion seen. Spleen: The spleen is unremarkable. No splenomegaly. Adrenal glands: The adrenal glands are unremarkable. No defined mass. Kidneys and ureters: The kidneys are unremarkable. No hydronephrosis. Stomach and bowel: No obstruction. No mucosal thickening. Appendix: No evidence of appendicitis. Intraperitoneal space: No free air. No significant fluid collection. Vasculature: There is diffuse calcified atherosclerotic plaque throughout the abdominal aorta and iliac arteries. No abdominal aortic aneurysm. Lymph nodes: No enlarged lymph nodes. Urinary bladder: Focus of air is noted in the anti dependent region of the urinary bladder, possibly secondary to prior instrumentation or secondary to infection. Reproductive: Visualized reproductive organs appear unremarkable. Bones/joints: No acute fracture. Degenerative changes are noted in the lumbar spine with spinal canal stenosis and neural foraminal narrowing. Soft tissues: Foci of air noted in the lower anterior abdominal wall, possibly related to prior injections. IMPRESSION: 1. Small foci of air in the urinary bladder noted, which may be secondary to prior instrumentation or gas-forming bacteria. Correlate with clinical laboratory findings and clinical history. 2. No nephrolithiasis or hydronephrosis. Dictated and Authenticated by: Mariaelena Vazquez MD. Ordering:ELTON Melgar MD
[2023-06-19 19:38] VITALS: BP 116/67; PULSE 86; RESP 16; TEMP 36.5; O2SAT 100
[2023-06-19] MEDS: Simvastatin 20 MG TAB PO (20:42)
[2023-06-19] MEDS: Mirtazapine 15 MG TAB 7.5 MG PO (20:43)
[2023-06-19] MEDS: Insulin Glargine 300 UNITS/3 ML PEN SC (20:48)
[2023-06-20] MEDS: Heparin 5,000 UNITS/ML VIAL 5000 UNITS SC (05:43)
[2023-06-20] MEDS: Levothyroxine 100 MCG TAB PO (05:44)
[2023-06-20 06:29] VITALS: BP 168/72; PULSE 71; RESP 17; O2SAT 100
[2023-06-20 07:51] LABS: Abs Immature Grans 0.05 10^3/uL (0.0-0.06); Absolute Basophil Count 0.03 10^3/uL (0.0-0.2); Absolute Eosinophil Count 0.28 10^3/uL (0.0-0.7); Absolute Lymphocyte Count 1.64 10^3/uL (1.2-3.4); Absolute Monocyte Count 0.39 10^3/uL (0.1-0.8); Absolute Neutrophil Count 4.26 10^3/uL (1.2-6.7); Basophils % 0.5; Eosinophils % 4.2; HCT 32.4 % (36.0-46.0); Immature Grans % 0.8; Lymphocytes % 24.7; MCHC 30.9 % (32.0-36.0); MCV 91 fL (80-95); Monocytes % 5.9; Neutrophils % 63.9; RBC 3.57 10^6/uL (3.93-5.22); RDW 16.1 % (11.7-14.6); RDW-SD 53.6 fL; WBC 6.65 10^3/uL (4.4-10.8)
[2023-06-20 08:12] LABS: Anion Gap 11.4 mmol/L (3-11); BUN 49 mg/dL (7-18); CO2 24.6 mmol/L (21.0-32.0); CREATININE 2.8 mg/dL (0.55-1.02); Calcium 9.7 mg/dL (8.5-10.1); Chloride 102 mmol/L (98-107); Estimated GFR 16.66 (mL/min/1.73m2); Glucose 119 mg/dL (74-106); Magnesium 2.3 mg/dL (1.8-2.4); Potassium 4.7 mmol/L (3.5-5.1); Sodium 138 mmol/L (136-145)
[2023-06-20] MEDS: Metoprolol CR 100 MG TABCR PO (08:21)
[2023-06-20] MEDS: Cholecalciferol (Vitamin D3) 1,000 UNIT TAB 2000 UNITS PO (08:22)
[2023-06-20] MEDS: glipiZIDE 5 MG TAB 10 MG PO (08:22)
[2023-06-20] MEDS: Magnesium Oxide 400 MG TAB PO (08:22)
[2023-06-20] MEDS: Citalopram 20 MG TAB PO (08:22)
[2023-06-20] MEDS: Lisinopril 10 MG TAB PO (08:22)
[2023-06-20] MEDS: Ferrous Gluconate 324 MG TAB PO (08:22)
[2023-06-20] MEDS: metFORMIN C.R. 500 MG TABCR 1000 MG PO (08:22)
[2023-06-20] MEDS: Ibuprofen 600 MG TAB PO (08:23)
--- NOTE | 2023-06-20 08:51 | DSE_ITS ---
Date of service: 06/20/23 Time of Service: 08:51 DS: Diagnosis Discharge Diagnosis (1) Acute pain of right hip: Status: Acute (2) Anemia: Status: Chronic (3) Diabetes mellitus: Status: Chronic (4) Acute UTI: Discharge Plan Disposition Patient Disposition: Home W/Home Health Services Condition: Improving Discharge Details Reason For Visit: Intracable R Hip Pain Admit Date/Time: 06/17/23 14:25 Admit Provider: Morena Orellana Attending Provider: Morena Orellana Primary Care Provider: Geovanna Anders Hospital Course Hospital Course: This is a 77-year-old female pateint with past medical history of CHF, Atrial fibrillation, breast cancer, glaucoma, hypertension, hypercholesterolemia, squamous cell cancer of the scalp and trochanteric bursistis who presented to the [facility] ED on 06/17/23 for evaluation after having had 3-4 falls in the last few weeks.? The first was when she was going to the bathroom and her right leg gave out.? Since that time she had been afraid to walk.?She reported it had given out on at least 2 other occasions.? She was seen in the ED 06/13/[address] scan that showed no fracture.? She continued with right hip pain and her felt he could not take care of her at home.? In the ED she had another x-ray of the right upper leg that did not show a fracture.? Orthopedics saw her and recommended continuing on NSAID medications with physical therapy and continued pain control would be warranted.? She was placed on observation status on the medical floor. Patient worked with PT and demonstrated improved bed mobility and functional transfers as well as improved gait with use of FWW. She continues to fear standing on right leg, although she does deny pain. She is discharged to home with home health PT to continue strengthening and focuse on improving functional mobility. Creatinine has been elevated. Hold lisinopril, ibuprofen, metformin - BMP ordered for 06/23. Home health nursing to monitor vital signs and glucose with medications being held and BMP draw 06/23 with results to PCP. ? Home Meds and New Rx's Prescriptions: New magnesium oxide 400 mg (241.3 mg magnesium) Tablet 400 mg PO BID Qty: 60 0RF acetaminophen 325 mg Tablet 650 mg PO Q6H PRN PRNQty: 30 0RF Continued levothyroxine 100 mcg capsule 100 mcg PO DAILY citalopram 20 mg tablet 20 mg PO DAILY mirtazapine 7.5 mg tablet 1 tab PO HS Patient Comments: Take 1 tablet by mouth every night ferrous gluconate 324 mg (38 mg iron) Tablet 27 mg PO DAILY cholecalciferol (vitamin D3) [Vitamin D3] 50 mcg (2,000 unit) Tablet 50 mcg PO BID metoprolol succinate 100 mg Tablet Extended Release 24 Hr 100 mg PO BID Qty: 0 0RF glipizide 10 mg Tablet 10 mg PO BID simvastatin 20 mg tablet 20 mg PO HS furosemide 20 mg tablet 20 mg PO DAILY Patient Comments: TAKE ONE TABLET BY MOUTH ONCE DAILY NEEDED FOR SWELLING Held lisinopril 10 mg tablet 10 mg PO DAILY Hold Instructions: Resume on 07/17/23. Do not resume until advised by your PCP metformin 500 mg tablet extended release 24hr 500 mg PO BID Hold Instructions: Resume on 07/17/23. Do not resume until advised by your PCP Patient Comments: Take 1 tablet by mouth twice a day Discontinued ibuprofen 600 mg tablet 600 mg PO Q8H PRNQty: 21 0RF cephalexin 500 mg capsule 500 mg PO BID Qty: 13 0RF Discharge Instructions Instructions: Hip Pain (GEN) Additional Instructions: Home health will call you and arrange a time for physical therapy to meet with you at your home. Have your labs checked 06/23/2023. Do not take ibuprofen, lisinopril or metformin until follow up with your PCP. Take tylenol 650 mg every 6 hours as needed for pain. Stand Alone Forms: Nursing Discharge Form Referrals: Geovanna Anders [Primary Care Provider] - (Please call you PCP and make an Appointment in the next 1-2 weeks Creatinine is elevated s/t ibuprofen and abx; held metformin, lisinopril, ibuprofen - BMP ordered for 06/23 results to PCP) Activity:: Activity as Tolerated Equipment/Supplies:: Walker Diet:: As Tolerated Discharge Orders Discharge Orders: Discharge Order (Routine); Ordered 06/20/23 Ordered By: Talia Reece Other Ambulatory Orders: Basic Metabolic Panel (Routine) Timeframe: [id number] Location: None Selected Ordered By: Talia Reece DS: Summary Time Spent with Patient providing and/or coordinating discharge services: Greater than 30 minutes Status at Discharge Functional status at discharge: uses cane/walker Overall status at discharge: patient is progressing back to baseline Mental Status: mental status grossly normal Speech and Movement: speech and movement normal Mood: congruent mood Affect: normal affect Exam Const General: no acute distress Orientation: alert HENMT Head: scalp lesion (scalp lesion removed about 3 years ago and has Lg healed sk in graft) Ears: external ears normal General nose exam: external nose normal Mouth: moist mucous membranes Eyes General: appearance normal, both eyes and all related structures Neck Neck: normal visual inspection Resp Effort & Inspection: normal respiratory effort and able to speak in complete sentences Auscultation: clear to auscultation bilaterally Cardio Rate: regular rate GI Palpation: soft and nontender Skin General skin exam: no rashes or lesions noted Neuro General: patient alert and patient oriented x3 Extrem General: normal to inspection, full ROM and capillary refill normal Psych Mental Status: mental status grossly normal Speech and Movement: speech and movement normal Mood: congruent mood Affect: normal affect DS: Data Vitals/I&O Vitals and I&O: Vital Signs Temperature 36.5 C 06/19/23 19:38 Temperature Source Tympanic 06/19/23 19:38 Pulse 71 06/20/23 06:29 Pulse Rhythm Irregular 06/20/23 05:47 Respiratory Rate 17 06/20/23 06:29 Respiratory Effort Normal 06/20/23 05:47 Respiratory Depth Normal 06/20/23 05:47 Respiratory Pattern Normal 06/20/23 05:47 Blood Pressure 168/72 H 06/20/23 06:29 Blood Pressure Position Sitting 06/17/23 11:12 Pulse Oximetry 100 06/20/23 06:29 Oxygen Delivery Method Room Air 06/20/23 06:29 Oxygen Flow Rate 0 06/20/23 06:29 Pain Level 0 06/20/23 08:23 Comment RN Notified 06/20/23 06:29 Intake & Output 06/19/23 06/19/23 06/20/23 11:59 23:59 11:59 Intake Total 240 / 240 Output Total 200 / 350 150 / 350 300 / 300 Balance -200 / -110 90 / -110 -300 / -300 Weight 87.6 kg 87.7 kg Intake: Oral 240 / 240 Output: Urine 200 / 350 150 / 350 300 / 300 Other: Urine Color Light Edna Light Edna Yellow Urine Appearance Clear Clear Clear Urine Odor None None None Stool Size Moderate Stool Characteristics Soft Voiding Methods Bedside Commode Bedside Commode Bedside Commode Data Completed and Pending Labs on day of discharge: Labs from last 24 hours 06/20/23 06/20/23 06:55 06:55 WBC 6.65 RBC 3.57 L Hgb 10.0 L Hct 32.4 L MCV 91 MCH 28.0 MCHC 30.9 L RDW 16.1 H Plt Count MPV Immature Gran % 0.8 Neutrophils % 63.9 Lymphocytes % 24.7 Monocytes % 5.9 Eosinophils % 4.2 Basophils % 0.5 Nucleated RBC % 0.0 Absolute Neutrophils 4.26 Absolute Lymphocytes 1.64 Absolute Monocytes 0.39 Absolute Eosinophils 0.28 Absolute Basophils 0.03 Sodium 138 Potassium 4.7 Chloride 102 Carbon Dioxide 24.6 Anion Gap 11.4 H BUN 49 H Creatinine 2.8 H Est GFR (CKD-EPI 2020) 16.66 Glucose 119 H Calcium 9.7 Magnesium 2.3 Preliminary micro results at discharge 06/17/23 19:10 Blood Culture - Preliminary Blood NO GROWTH 48 HOURS 06/17/23 19:10 Blood Culture - Preliminary Blood NO GROWTH 48 HOURS PFSH All Active Problems (Updated 06/17/23 @ 17:22 by Patrick Hathaway MD) Acute pain of right hip (Acute) Anemia (Chronic) Diabetes mellitus (Chronic) Medical History (Updated 06/17/23 @ 17:22 by Patrick Hathaway MD) Abnormal finding on breast imaging Acute CHF Acute dyspnea Acute pain of right hip Acute UTI Atrial fibrillation Atrial fibrillation with RVR Related hg 5.7, isolated Breast cancer CHF (congestive heart failure) related to Hg 5.7. Resolved. Nl echo Discharge planning issues DVT prophylaxis Glaucoma Goiter HTN (hypertension) Hypercholesterolemia Leucocytosis Osteopenia Pleural effusion Squamous cell cancer of scalp and skin of neck Trochanteric bursitis Surgical History S/P breast lumpectomy S/P skin and subcutaneous tissue surgery Social History Smoking/Tobacco Use Status: Never Smoking risk assessment performed?: Yes Alcohol Intake: never Drug use: Never Substance use type: does not use Housing: house Do you feel safe at home: Yes Do you feel safe in your relationship?: Yes Time Spent with Patient Time Spent with Patient: 45-69 minutes Time was spent: preparing to see the patient(eg.review tests), ordering me dications,tests, procedures, referring, communicating with other health care director rn and indepentently interpreting results
--- NOTE | 2023-06-20 09:02 | PDOC.HHF2F ---
Home Health Referral Home Health Orders Clinical synopsis of why skilled professionals are needed: This is a 77-year-old female pateint with past medical history of CHF, Atrial fibrillation, breast cancer, glaucoma, hypertension, hypercholesterolemia, squamous cell cancer of the scalp and trochanteric bursistis who presented to the [facility] ED on 06/17/23 for evaluation after having had 3-4 falls in the last few weeks.? The first was when she was going to the bathroom and her right leg gave out.? Since that time she had been afraid to walk.?She reported it had given out on at least 2 other occasions.? She was seen in the ED 06/13/[address] scan that showed no fracture.? She continued with right hip pain and her felt he could not take care of her at home.? In the ED she had another x-ray of the right upper leg that did not show a fracture.? Orthopedics saw her and recommended continuing on NSAID medications with physical therapy and continued pain control would be warranted.? She was placed on observation status on the medical floor. Patient worked with PT and demonstrated improved bed mobility and functional transfers as well as improved gait with use of FWW. She continues to fear standing on right leg, although she does deny pain. She is discharged to home with home health PT to continue strengthening and focuse on improving functional mobility. Creatinine has been elevated. Hold lisinopril, ibuprofen, metformin - BMP ordered for 06/23. Home health nursing to monitor vital signs and glucose with medications being held and BMP draw 06/23 with results to PCP. ? Medical diagnosis necessitation home health referral: Impaired mobility, weak, multiple falls. Registered Nurse: Check all that apply Instruct on new or changed medication(s)/assess compliance: Ordered Assess for exacerbation of medical condition, instruct patient/caregivers on signs and symptoms to report for early detection: Ordered Other: Monitor BP/glucose In setting of NICOLE, Lisinopril, metformin and ibuprofen held BMP 06/23 results to PCP Physical Therapist: Check all that apply Increase strength & endurance for safe mobility at home: Ordered To design/establish home maintenance program: Ordered Fall reduction therapy program for patient with history of frequent falls: Ordered Home safety evaluation and teaching/gait training including stair management (if applicable): Ordered Home Bound Status Requires the aid of supportive device (check all that apply): Walker Patient has a condition such that leaving home is medically contraindicated (Describe): Unable to ambulate without device or one person assisting her. She requires stand by assistance. Describe why leaving home would require a considerable and taxing effort: Requires frequent rest periods and Safety Concerns: describe (multiple falls at home) Encounter Date and Reason: I certify that a FTF encounter for this patient was performed on June 20, 2023 and that such encounter was related to the primary reason the patient requires home health services. The encounter was conducted in the following manner: By me as the certifying physician, CALL CIRCUIT WORKER, PA or By an inpatient physician, CALL CIRCUIT WORKER or PA during an inpatient stay who communicated findings to me, Certification And Authentication I certify that I composed the above information based on my clinical judgment relating to this patient's medical condition and, if applicable, clinical findings communicated to me by the NPP or inpatient physician who performed the FTF encounter. Name of Provider that will be monitoring home health services: Geovanna Anders
[2023-06-20] MEDS: Insulin Aspart 300 UNITS/3 ML PEN SC (12:23)
--- NOTE | 2023-06-21 09:42 | INDS_ITS ---
PT Notes Visit Reasons: Intracable R Hip Pain Inpatient Physical Therapy Discharge Summary Date: 06/21/23 Dates of Service: June 18, 2023 - June 19, 2023 Referring Doctor: Morena Orellana PT Orders: PT CONSULT: limited ability This document serves as a summary of care. No PT services were provided on this date. Patient Profile/Admitting Diagnosis:?Patient is a 77-year-old female patient with past medical history signifincat for CHF,? AF,? and squamous cell CA who presented to the ED twice in a week after falling at home. Patient was also found to have mild urinary tract infection with x-ray and CT scan unrevealing? for fracture,? subluxation, nor dislocation. She was able to return home after her first ER visit, then presented to ED again with poorly controlled RLE pain and inability to ambulate. She was admitted for observation and pain management. Patient participated in 2 sessions of PT intervention over the course of 2 days. They were able to demonstrate safety and mobility sufficient to allow for safe return home with HH PT. PMHX: All Active Problems?(Updated 06/13/23 @ 07:32 by Nabeel Pearson DO) Acute pain of right hip (Acute) Anemia (Chronic) CHF (congestive heart failure) (Chronic) Atrial fibrillation with RVR (Acute) Leucocytosis (Acute) DVT prophylaxis (Acute) Acute dyspnea (Acute) Pleural effusion (Acute) Diabetes mellitus (Chronic) Medical History? 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 visit S/P breast lumpectomy S/P skin and subcutaneous tissue surgery Social History/Home Situation: Lives with in a private home with 2 steps to enter.? Independent with all aspects of ADLs prior to a few weeks ago, with declining mobility in that interval.? Has a 4WW which she rarely used. Equipment Owned/DME: FWW, 4WW Subjective: none Objective: ROM: Right Upper Extremity: Demonstrates WFL R UE ROM Left Upper Extremity: Limited GH forward elevation and abduction. Able to reach behind her head and to L2 Right Lower Extremity: Hip flexion up to 90 degrees, minimal pain. Hip abduction to 30 degrees. Hip IR 15*, ER 40*. Knee flexion up to 100 degrees. Ankle dorsiflexion to neutral only. Ankle plantarflexion WFL. Left Lower Extremity: Hip flexion WFL. Hip abduction WFL. Knee flexion WFL. Ankle dorsiflexion WFL. Ankle plantarflexion WFL. SLR allows 45* with mild exacerbation of thigh pain; alleviated with traction. Trunk sidebending assessed in sitting; tolerates right side bending without exacerbation of pain. Strength: Right Upper Extremity: Demonstrates grossly 4/5 R UE myotomes without pain Left Upper Extremity: Shoulder Flexion 4-/5, abduction 4-/5, ER 3+/5, IR 5/5 Right Lower Extremity: Hip flexors 4-/5. Hip abductors 3/5. Knee flexors 4-/5. Knee extensors 4/5. Ankle dorsiflexors 5/5. Ankle plantarflexors 4+/5. EHL 5/5. Left Lower Extremity: Hip flexors 4-/5. Hip abductors 4-/5. Knee flexors 4-/5. Knee extensors 4/5. Ankle dorsiflexors 5/5. Ankle plantarflexors 4+/5. EHL 5/5 BED MOBILITY/TRANSFERS?Rolling L/R: Independent ?Supine-sit: Independent?Sit-supine: Independent ?Sit-stand: CGA with FWW ?Stand-sit: CGA?Bed-Chair: minAx1 with FWW ? GAIT?Assistive Device: FWW ?Weight bearing: FWB ?Assist: CGA ?Distance:? 25ftx2 ?Deviation: decreased rodolfo, WBOS ? ?? Balance: Static Sitting: Good Dynamic Sitting: Good Static Standing: Fair Dynamic Standing: Poor ? ? Assessment: Patient participated in 2 sessions of PT intervention over the course of 2 days. She demonstrated significant improvements in functional mobility once pain was better managed. She was able to demonstrate safety and mobility sufficient to allow for safe return home with PT. Goals: Goals X1 week 1. Supine-Sit independent (MET) 2. Sit-Supine independent (MET) 3. Sit-Stand independent with FWW (Progressing Toward) 4. Stand-Sit independent with FWW (Progressing Toward) 5. Bed-Chair independent with FWW (Progressing Toward) 6. Chair-Bed independent with FWW (Progressing Toward) 7.?Supervision with gait on level surface with use of FWW for at least 300 feet without report of pain nor dyspnea(Progressing Toward) Plan of Care/Treatment Plan: D/C from PT in acute care setting, with recommendation for further PT intervention via PT. TREATMENT CODE/TIME: none Thank you for the opportunity to participate in the care of this patient. Cecilia Jung, PT, DPT [facility] [place], [place]
== END 2023-06-20 14:30 | disposition home health service (06) ==
LOC: ER 14:37 → MS 16:04
PROVIDERS: Nurse Practitioner Family; Admitting Provider Internal Medicine; Emergency Provider Emergency Medicine; PCP Nurse Practitioner Family; Visit Provider Internal Medicine
DX: M25.551 Pain in right hip (principal); M16.11 Unilateral primary osteoarthritis, right hip; D64.9 Anemia, unspecified; I50.9 Heart failure, unspecified; I48.91 Unspecified atrial fibrillation; E11.9 Type 2 diabetes mellitus without complications; Z79.84 Long term (current) use of oral hypoglycemic drugs; H40.9 Unspecified glaucoma; Z85.3 Personal history of malignant neoplasm of breast; I11.0 Hypertensive heart disease with heart failure; E78.00 Pure hypercholesterolemia, unspecified; W19.XXXA Unspecified fall, initial encounter; R29.6 Repeated falls; M85.80 Other specified disorders of bone density and structure, unspecified site; Z85.828 Personal history of other malignant neoplasm of skin
CPT/HCPCS: 36415; 73552; 80048; 80076; 84145; 87040; 96372; 96374; 97110; 97162; 97530; 99222; 99285; 74176; 81003; 81015; 83735; 85025; 86140; 87086; 99232; 99239; 99284; G0378; J1644; J2270

== ENCOUNTER 2023-07-04 08:18 | Inpatient (IN) | payer MEDICARE, SELFPAY ==
[2023-07-04] VITALS (93 sets, daily range): BP systolic 156–260; BP diastolic 54–233; PULSE 71–117; RESP 14–29; TEMP 36.1–36.7; O2SAT 94–98
--- NOTE | 2023-07-04 09:52 | NUR.NOTE ---
Nursing Note: Pt BP elevated, PA is aware. Pt states she takes numerous AM medications for her blood pressure which she has not yet taken. Pt is unsure what these medications are but her is on his way in with her list
--- NOTE | 2023-07-04 11:11 | ED.GENADUL_ITS ---
Discharge Plan Discharge Details Chief Complaint: Fall/Non TraumaCriteria Primary Care Provider: Geovanna Anders ED Provider: Amelia Borges Home Meds and New Rx's Prescriptions: No Action lisinopril 10 mg tablet 10 mg PO DAILY Hold Instructions: Resume on 07/17/23. Do not resume until advised by your PCP levothyroxine 100 mcg capsule 100 mcg PO DAILY citalopram 20 mg tablet 20 mg PO DAILY mirtazapine 7.5 mg tablet 1 tab PO HS Patient Comments: Take 1 tablet by mouth every night ferrous gluconate 324 mg (38 mg iron) Tablet 27 mg PO DAILY metoprolol succinate 100 mg Tablet Extended Release 24 Hr 100 mg PO BID Qty: 0 0RF glipizide 10 mg Tablet 10 mg PO BID simvastatin 20 mg tablet 20 mg PO HS furosemide 20 mg tablet 20 mg PO DAILY Patient Comments: TAKE ONE TABLET BY MOUTH ONCE DAILY NEEDED FOR SWELLING metformin 500 mg tablet extended release 24hr 500 mg PO BID Hold Instructions: Resume on 07/17/23. Do not resume until advised by your PCP Patient Comments: Take 1 tablet by mouth twice a day acetaminophen 325 mg Tablet 650 mg PO Q6H PRN PRNQty: 30 0RF Medical Decision Making 77yo F with hx T2DM, HTN, hypothyroid, falls, presenting for fall. Reports feeling panicky when her assists here. Hypertensive on arrival (stopped home lisinopril and metformin recently 2/t increasing Cr at PCP instructions), vital signs otherwise reassuring. Ordered home metoprolol. No traumatic findings on exam; would not get imaging. History not concerning for cardiac etiology, no component of syncope or presyncope,will not workup further with labs. No focal weakness to suggest CVA. PT planned for later this week but given fall today warrants evaluation here for safety for discharge home. PT worked with patient (see their note for details); unable to safely ambulate. unable to adequately assist her at home. Will need SNF placement. No capacity for observation or admission at [facility] at this time; discussed with [facility], [facility], [facility] all unable to accept. On reassessment patient tearful, anxious, concerned about falling at home and about affording SNF. Remains hypertensive at 201/109; states she is usually around 180-200 systolic. Discussed with hospitalist contour band saw operator vertical and not felt to meet criteria for admission. I remain concerned about a safe discharge plan for this patient as she is at significant risk for fall at home with resultant potential injury/hip fracture/morbidity given PT's assessment that she is unable to safely ambulate with the resources available. No other family members available to help aside from 80's year old . Discussions with medicine team ongoing; signed out to oncoming physician at 1800 with plan to followup formal medicine consult vs medicine admission/observation. Lab Data Lab results reviewed: Yes I reviewed the patient's lab results. Labs: Laboratory Tests Range/Units 07/04/23 07/04/23 12:36 12:36 WBC (4.4-10.8) 10^3/uL 9.69 RBC (3.93-5.22) 10^6/uL 3.10 L Hgb (11.2-15.7) g/dL 8.7 L Hct (36.0-46.0) % 28.0 L MCV (80-95) fL 90 MCH (27.0-33.0) pg 28.1 MCHC (32.0-36.0) % 31.1 L RDW (11.7-14.6) % 16.1 H Plt Count (130-400) 10^3/uL 183 MPV (8.0-11.0) fL 9.9 Immature Gran % 0.5 Neutrophils % 79.1 Lymphocytes % 11.8 Monocytes % 5.1 Eosinophils % 3.1 Basophils % 0.4 Nucleated RBC % (0.0-0.3) % 0.0 Absolute Neutrophils (1.2-6.7) 10^3/uL 7.67 H Absolute Lymphocytes (1.2-3.4) 10^3/uL 1.14 L Absolute Monocytes (0.1-0.8) 10^3/uL 0.49 Absolute Eosinophils (0.0-0.7) 10^3/uL 0.30 Absolute Basophils (0.0-0.2) 10^3/uL 0.04 Sodium (136-145) mmol/L 133 L Potassium (3.5-5.1) mmol/L 4.6 Chloride (98-107) mmol/L 99 Carbon Dioxide (21.0-32.0) mmol/L 25.4 Anion Gap (3-11) mmol/L 8.6 BUN (7-18) mg/dL 17 Creatinine (0.55-1.02) mg/dL 1.1 H Est GFR (CKD-EPI 2020) (mL/min/1.73m2) 51.11 Glucose (74-106) mg/dL 305 H Calcium (8.5-10.1) mg/dL 9.9 Total Bilirubin (0.2-1.0) mg/dL 0.4 AST (15-37) U/L 11 L ALT (14-59) U/L 16 Alkaline Phosphatase (46-116) U/L 135 H Total Protein (6.4-8.2) g/dL 7.2 Albumin (3.4-5.0) g/dL 2.9 L TSH (0.36-3.74) uIU/mL 1.03 HPI General Date/Time Provider Initiated Documentation: 07/04/23 08:59 . Limitations to Documentation: no limitations . Information obtained by: patient . HPI Narrative: 77yo F with hx T2DM, HTN, hypothyroid, falls, presenting for fall. Reports that her was assisting her up and she panicked, felt like she was going fall, and then fell onto her left side. Denies any pain or injury; did not strike her head or lose conciousness. States that this has happened a lot before. No lightheadedness, chest pain, shortness of breath, sycnope, or presyncope. Has PT scheduled to come her home later this week. She is otherwiwse in her usual state of health with no fevers, chills, nausea, vomiting, abdominal pain, dysuria, hematuria, LE edema, palpitations, or other concerns. Related Data Home Medications Medication Instructions Recorded Confirmed glipizide 10 mg tablet 10 mg PO BID 07/12/21 07/04/23 ferrous gluconate 324 mg (38 mg 27 mg PO DAILY 05/07/22 07/04/23 iron) tablet mirtazapine 7.5 mg tablet 1 tab PO HS 05/07/22 07/04/23 metoprolol succinate 100 mg 100 mg PO BID #0 tabs 05/08/22 07/04/23 tablet,extended release 24 hr citalopram 20 mg tablet 20 mg PO DAILY 12/30/22 07/04/23 levothyroxine 100 mcg capsule 100 mcg PO DAILY 12/30/22 07/04/23 lisinopril 10 mg tablet 10 mg PO DAILY 12/30/22 07/04/23 simvastatin 20 mg tablet 20 mg PO HS 12/30/22 07/04/23 furosemide 20 mg tablet 20 mg PO DAILY 06/12/23 07/04/23 metformin 500 mg tablet,extended 500 mg PO BID 06/17/23 07/04/23 release 24hr acetaminophen 325 mg tablet 650 mg PO Q6H PRN PRN #30 tabs 06/20/23 07/04/23 Previous Rx's Medication Instructions Recorded metoprolol succinate 100 mg 100 mg PO BID #0 tabs 05/08/22 tablet,extended release 24 hr acetaminophen 325 mg tablet 650 mg PO Q6H PRN PRN #30 tabs 06/20/23 Allergies Allergy/AdvReac Type Severity Reaction Status Date / Time famotidine Allergy Severe Verified 07/04/23 09:18 doxazosin [From Cardura] Allergy Intermediate Verified 07/04/23 09:18 sitagliptin [From Januvia] Allergy Intermediate Verified 07/04/23 09:18 empagliflozin Allergy Verified 07/04/23 09:18 [From Jardiance] General Stated Complaint: Fall/Non TraumaCriteria ZAKIA: 4 Review of Systems Narrative: see HPI PFSH All Active Problems (Updated 06/21/23 @ 00:07 by BREANNA SALDAÑA) Acute pain of right hip (Acute) Medical History (Updated 06/21/23 @ 00:07 by BREANNA SALDAÑA) Abnormal finding on breast imaging Acute CHF Acute dyspnea Acute pain of right hip Acute UTI Anemia Atrial fibrillation Atrial fibrillation with RVR Related hg 5.7, isolated Breast cancer CHF (congestive heart failure) related to Hg 5.7. Resolved. Nl echo Diabetes mellitus Discharge planning issues DVT prophylaxis Glaucoma Goiter HTN (hypertension) Hypercholesterolemia Leucocytosis Osteopenia Pleural effusion Squamous cell cancer of scalp and skin of neck Trochanteric bursitis Surgical History S/P breast lumpectomy S/P skin and subcutaneous tissue surgery Social History Smoking/Tobacco Use Status: Never Smoking risk assessment performed?: Yes Alcohol Intake: never Drug use: Never Substance use type: does not use Housing: house Do you feel safe at home: Yes Do you feel safe in your relationship?: Yes Exam Narrative Exam Narrative: GENERAL: Alert, no acute distress SKIN: Warm and well perfused. Scattered echymosis to abdomen consistent with SQ injections. Erythema under panus consistent with yeast rash. HEAD: Atraumatic without edema, discoloration or evidence of trauma. Skin graft to scalp, carcinoma. EYES: PERRL. No scleral icterus or conjunctival injection. No proptosis or enophthalmos. MOUTH: No malocclusion or trismus. Moist mucus membranes without blood. NECK: Trachea midline. No discolorations or edema. CV: Regular rate and rhythm, Normal s1 and s2. No murmurs, rubs, or gallops. PV: Radial pulses 2+ bilaterally and symmetric. Dorsalis pedis pulses 2+ bilaterally and symmetric. 2+ capillary refill. CHEST: No abrasions or ecchymosis. Chest symmetric with respirations. No chest wall tenderness. Lungs are clear to auscultation bilaterally. ABDOMEN: Soft, nondistended, nontender. BACK: No abrasions, skin openings. Spine without bony tenderness, no step offs. PELVIC: Pelvis stable, nontender to lateral compression MSK: No gross deformities or discolorations or lesions. Tolerates full range of motion of extremities without tenderness. NEURO: Alert and oriented to person, place, and time. GCS 15. Sensation grossly intact and symmetric. Moves all extremities against gravity, diffuse symmetric weakness. Finger to nose intact bilaterally. Course Vital Signs Vital signs: Vital Signs Temperature 36.7 C 07/04/23 08:21 Pulse 86 07/04/23 08:21 Respiratory Rate 18 07/04/23 08:21 Blood Pressure 240/94 H 07/04/23 08:21 Pulse Oximetry 95 07/04/23 08:21 Temperature 36.7 C 07/04/23 08:21 Pulse 84 07/04/23 10:46 Pulse 85 07/04/23 10:46 Respiratory Rate 19 07/04/23 10:46 Respiratory Effort Normal 07/04/23 08:29 Blood Pressure 223/100 H 07/04/23 10:46 Blood Pressure Mean 141 07/04/23 10:46 Blood Pressure Position Sitting 07/04/23 08:21 Pulse Oximetry 95 07/04/23 08:21 Oxygen Delivery Method Room Air 07/04/23 08:21 Oxygen Flow Rate 0 07/04/23 08:21 Pain Level 4 07/04/23 08:21 Sign Out Sign Out Data: Sign Out Comment: 77yo F presenting for frequent falls, fall this morning. 80's year old only help available at home, no nearby family. PT evaluated and patient not able to ambulate safely. Unable to transfer, hospitalist declined to admit, no swing beds available. R.S. discussing with medicine team and asking for admit vs formal consult, will call ED to update. Home metop and lasix ordered for HTN, has been holding metformin/lisinopril on PCP advise for kidney issues. Patient states BP is usually 180-200 systolic. Last updated by Amelia Borges MD at 07/04/23 17:36
--- NOTE | 2023-07-04 11:19 | IN_ITS ---
Date of service: 07/04/23 Time of Service: 10:47 PT Notes Visit Reasons: [facility] Physical Therapy Emergency Department Intial Evaluation Date: 07/04/2023 Referring Doctor:? Amelia Borges,? PT Orders: PT CONSULT: Safety Consult for D/C Precautions: Fall. Standard. Activity as tolerated. Patient Profile/Admitting Diagnosis:? Patient is a 77-year-old female patient with past medical history significant for CHF,? AF,? and squamous cell CA who presented to the ED due to repeated falls,? high anxiety,? and difficulty with walking.? Recommendation against going home due to safety reasons were given in yesterday's evaluation and patient was admitted for rehabilitation and management of? acute UTI,? functional mobility decline,? and falls.? PMHX: All Active Problems?(Updated 06/21/23 @ 00:07 by BREANNA SALDAÑA) Acute pain of right hip (Acute) Medical History?(Updated 06/21/23 @ 00:07 by BREANNA SALDAÑA) Abnormal finding on breast imaging Acute CHF Acute dyspnea Acute pain of right hip Acute UTI Anemia Atrial fibrillation Atrial fibrillation with RVR Related hg 5.7, isolatedBreast cancer CHF (congestive heart failure) related to Hg 5.7. Resolved. Nl echoDiabetes mellitus Discharge planning issues DVT prophylaxis Glaucoma Goiter HTN (hypertension) Hypercholesterolemia Leucocytosis Osteopenia Pleural effusion Squamous cell cancer of scalp and skin of neck Trochanteric bursitis Surgical History? S/P breast lumpectomy S/P skin and subcutaneous tissue surgery Social History/Home Situation: Lives with in a private home with 2 steps to enter.? Independent with all aspects of ADLs prior to admission until two weeks from today's presentation.? Has a 4WW which she rarely used. Equipment Owned/DME: FWW Subjective: Almost in a panic mode with attempts at sitting patient up. Pushes back while being assisted by PT, Nurse Yarely and a seocnd Nurse. Quirino states that patient has had a total of 3 falls in the past 3-4 days prior to coming to the ED. Objective: General Observation: Supine in bed.? Anxious about moving out of bed.? [place] present in room throughout evaluatation. Mental Status: Alert and oriented as to person, place, time, and purpose.? Anxiety limiting her ability to focus,? needs to be encouraged extensively to focus to task to prevent development of panic attack during movement. Pain: Denies Vital Signs: BP shot up to 223/200 mmHg with attempts at getting patient up ROM: Right Upper Extremity: ? Shoulder Flexion lacks the last 25% of AROM. Shoulder abduction? lacks the last 25% of AROM. Elbow flexion WFL. Wrist flexion WFL. Functional opening and closing of hand WFL. Left Upper Extremity:? Shoulder Flexion lacks the last 25% of AROM. Shoulder abduction? lacks the last 25% of AROM. Elbow flexion WFL. Wrist flexion WFL. Functional opening and closing of hand WFL. Right Lower Extremity: Hip flexion lacks the last 255 of AROM. Hip abduction lacks the last 255 of AROM. Knee flexion WFL. Ankle dorsiflexion to neutral only. Ankle plantarflexion WFL. Left Lower Extremity: Hip flexion lacks the last 255 of AROM. Hip abduction lacks the last 255 of AROM. Knee flexion WFL. Ankle dorsiflexion to neutral only. Ankle plantarflexion WFL. Strength: Right Upper Extremity: Shoulder flexors 3-/5. Shoulder abductors 3-/5. Elbow flexors 4-/5. Elbow extensors 4-/5. Record Searcher strong. Left Upper Extremity: Shoulder flexors 3-/5. Shoulder abductors 3-/5. Elbow flexors 4-/5. Elbow extensors 4-/5. Record Searcher strong. Right Lower Extremity: Hip flexors 3-/5. Hip abductors 3-/5. Knee flexors 4-/5. Knee extensors 4-/5. Ankle dorsiflexors 3-/5. Ankle plantarflexors 4-/5. Left Lower Extremity: Hip flexors 3-/5. Hip abductors 3-/5. Knee flexors 4-/5. Knee extensors 4-/5. Ankle dorsiflexors 3-/5. Ankle plantarflexors 4-/5. Bed Mobility/Transfers: Supine to sit moderate assist of 3 with HOB at 30 degrees Sit to supine moderate assist of 3 with HOB at 30 degrees Gait: Unable and unsafe at this time due to high anxiety level Balance: Static Sitting: Good Dynamic Sitting: Fair Static Standing: Unable Dynamic Standing: Unable Special Tests: Mobility Limitations Standardized Measure [employer] AM-PAC 6 clicks Basic Mobility Inpatient Short Form: Raw Score: 11? CMS Score: 73% deficit? ? ? Informed Consent/Education:? Patient was instructed in purpose of PT consult and plan of care. Agreeable to proceed with established PT POC to achieve personal goals. Assessment: Anxiety level with moving and weight bearing high.? Fearfulness of falling is a major limiting factor for mobility retraining.? Patient presents with clinical signs and symptoms consistent with current/admitting diagnoses that have resulted to mobility limitations, gait instability, generalized weakness, and overall ADL decline as demonstrated by the following impairment level findings: 1.? Decreased strength to R hip major muscle groups 2.? Impaired sitting/standing balance 3.? Impaired activity tolerance 4.? Limitation of joint range of motion in B shoulders and hips 5.? High anxiety from fearfulness of falling Impairments are contributing to the following functional limitations: 1.? Decline in bed mobility skills 2.? Decline in transfer skills 3.? Difficulty with ambulation without assistive device and physical assistance 4.? Increased completion time for mobility ADL performance 5.? Increased risk for falls 6.? Difficulty with managing steps alone safely Patient is [place] a 30127 moderate complexity based on the following: History: 77-year-old female with past medical history as indicated above Examination: Demonstrable impairment in strength, balance, and mobility level with underlying impairments and functional limitations as exhibited above as well as deficit score of 73% utilizing the [facility] Mobility Inpatient Short Form Presentation: Evolving Decision Makin moderate complexity Goals: N/A. PT evalaution only. Will re-evaluate patient when anther referal under acute level of care is received. Plan of Care/Treatment Plan: Will re-evaluate patient when anther referal under acute level of care is received. DISCHARGE RECOMMENDATIONS: [] ? Home with no services [] [] ? Home with services [specify] [] ? Home with outpatient PT [] [] ? SNF for continued rehabilitation [] [] ? [employer] [facility] [] [] ? SNF versus LTC based on ability to participate and progress [] [X]? Acute care level/SNF admission for continued mobility progression,? strengthening,? ADL retraining,? and fall reduction strategies.? TREATMENT CODE/TIME: 51142 x 31 minutes for 1 unit beginning at 10:47 AM. Thank you for the opportunity to participate in the care of this patient. Eneida Butcher PT, DPT, CLT [facility] [place], [place]
[2023-07-04] MEDS: Metoprolol 50 MG TAB 100 MG PO (11:43)
[2023-07-04 12:45] LABS: Abs Immature Grans 0.05 10^3/uL (0.0-0.06); Absolute Basophil Count 0.04 10^3/uL (0.0-0.2); Absolute Lymphocyte Count 1.14 10^3/uL (1.2-3.4); Absolute Monocyte Count 0.49 10^3/uL (0.1-0.8); Absolute Neutrophil Count 7.67 10^3/uL (1.2-6.7); Basophils % 0.4; Eosinophils % 3.1; HGB 8.7 g/dL (11.2-15.7); Immature Grans % 0.5; Lymphocytes % 11.8; MCH 28.1 pg (27.0-33.0); MCHC 31.1 % (32.0-36.0); MCV 90 fL (80-95); MPV 9.9 fL (8.0-11.0); Monocytes % 5.1; Neutrophils % 79.1; Platelet Count 183 10^3/uL (130-400); RDW 16.1 % (11.7-14.6); RDW-SD 53.1 fL; WBC 9.69 10^3/uL (4.4-10.8)
[2023-07-04 13:18] LABS: ALT 16 U/L (14-59); AST 11 U/L (15-37); Albumin 2.9 g/dL (3.4-5.0); Alkaline Phosphatase 135 U/L (46-116); Anion Gap 8.6 mmol/L (3-11); BUN 17 mg/dL (7-18); Bilirubin, Total 0.4 mg/dL (0.2-1.0); CO2 25.4 mmol/L (21.0-32.0); CREATININE 1.1 mg/dL (0.55-1.02); Calcium 9.9 mg/dL (8.5-10.1); Chloride 99 mmol/L (98-107); Estimated GFR 51.11 (mL/min/1.73m2); Glucose 305 mg/dL (74-106); Potassium 4.6 mmol/L (3.5-5.1); Sodium 133 mmol/L (136-145); TSH (W/Ref FT4) 1.03 uIU/mL (0.36-3.74); Total Protein 7.2 g/dL (6.4-8.2)
--- NOTE | 2023-07-04 15:47 | PDOC.CMPRO ---
Date of service: 07/04/23 Time of Service: 15:47 Care Management Progress Note Progress Note Text Progress Note Text: CM met with Arlene and her Quirino to get a better understanding of their current home situation and community supports. Per Arlene, she lives with her , she has [facility] RN/PT services. She denies having any family or friends. She would like to be admitted to [facility] or transferred to another hospital. Patient and feel strongly that Arlene needs to remain in the hospital with or without an admitting diagnosis. CM offered to send a referral to [facility] , however without a 3 night qualifying stay admission would be self pay, which patient refuses. A payer source is needed for SNF placement if self pay is not an option. CM discussed the process of skilled nursing medicaid, which patient also declines. On discharge, CM feels that Arlene would benefit from resumption of [facility] RN/PT, but also add PRINTING MACHINE [employer]CH[employer] services to help with long range planning. A referral to [facility] would also be helpful to discuss services offered in the community.
[2023-07-04] MEDS: Furosemide 20 MG TAB PO (17:43)
--- NOTE | 2023-07-04 17:58 | NUR.NOTE ---
Notified Dr Borges of pts ongoing hypertension. Orders for 20mg PO Lasix in. Given at 1743. Pt is now on Q2 vitals due to pt request. aware.
--- NOTE | 2023-07-04 18:00 | DI.CT_ITS ---
Exam(s) CT HEAD WO EXAM: CT HEAD WO CLINICAL HISTORY: History of falling. TECHNIQUE: Imaging Protocol: Axial computed tomography images with coronal and sagittal reformatted images were created and reviewed COMPARISON: Comparison is made with prior examinations. FINDINGS: Ventricles and Extra axial spaces: Normal in size and morphology for the patient's age. Hemorrhage: None. Cerebral parenchyma: There are areas of decreased attenuation in the white matter consistent with sma ll vessel ischemic disease. 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 No evidence of an acute territorial infarct. Midline shift: None. Brainstem/Cerebellum: Normal. Calvarium: Normal. Visualized Paranasal sinuses/Mastoids: Opacification of several visualized paranasal sinuses is seen. Soft Tissues: There again seen well-circumscribed calcified subcutaneous nodules. IMPRESSION: No acute intracranial process. RADIATION DOSE DELIVERED: 660.73mGy.cm Total DLP DATA REPOSITORY: All CT scans at this facility are submitted to the National Radiology Data Registry (NRDR) Dose Index Registry (DIR) with the [employer] (ACR). RADIATION OPTIMIZATION: All CT scans at this facility use at least one of these dose optimization te chniques: automated exposure control; mA and/or kV adjustment per patient size (includes targeted exa ms where dose is matched to clinical indication); or iterative reconstruction.
--- NOTE | 2023-07-04 18:09 | ED.PROG_ITS ---
Date of service: 07/04/23 Time of Service: 18:09 Medical Decision Making I received signout on this 77-year-old female in the emergency department with her 80-year-old with whom she lives. She has a history of diabetes. She has been evaluated by physical therapy who felt that she was not appropriate for discharge. She is pending hospitalization request with the hospitalist service. She reportedly fell at home and was on the ground for several hours that she could not get up and her elderly could not help her get up. 7:22 PM Patient was found on urinalysis to have acute UTI. I spoke with Dr. Meraz to request hospitalization. Given history of falling I scanned the patient's head. 7:45 PM I spoke with Dr. Meraz who agreed graciously to accept the patient for hospitalization. He will order antibiotics for the patient. Patient is not febrile nor tachycardic nor hypotensive to suggest sepsis so I did not order lactate blood cultures nor empirically treated with broad-spectrum antibiotics. Sign Out Sign Out Data: Sign Out Comment: 77yo F presenting for frequent falls, fall this morning. 80's year old only help available at home, no nearby family. PT evaluated and patient not able to ambulate safely. Unable to transfer, hospitalist declined to admit, no swing beds available. R.S. discussing with medicine team and asking for admit vs formal consult, will call ED to update. Home metop and lasix ordered for HTN, has been holding metformin/lisinopril on PCP advise for kidney issues. Patient states BP is usually 180-200 systolic. Last updated by Amelia Borges MD at 07/04/23 17:36 Discharge Plan Disposition Patient Disposition: Admit to [facility] Discharge Details Clinical Impression: Hx of falling, Acute UTI Primary Care Provider: Geovanna Anders ED Provider: Wei Penaloza Home Meds and New Rx's Prescriptions: No Action lisinopril 10 mg tablet 10 mg PO DAILY Hold Instructions: Resume on 07/17/23. Do not resume until advised by your PCP levothyroxine 100 mcg capsule 100 mcg PO DAILY citalopram 20 mg tablet 20 mg PO DAILY mirtazapine 7.5 mg tablet 1 tab PO HS Patient Comments: Take 1 tablet by mouth every night ferrous gluconate 324 mg (38 mg iron) Tablet 27 mg PO DAILY metoprolol succinate 100 mg Tablet Extended Release 24 Hr 100 mg PO BID Qty: 0 0RF glipizide 10 mg Tablet 10 mg PO BID simvastatin 20 mg tablet 20 mg PO HS furosemide 20 mg tablet 20 mg PO DAILY Patient Comments: TAKE ONE TABLET BY MOUTH ONCE DAILY NEEDED FOR SWELLING metformin 500 mg tablet extended release 24hr 500 mg PO BID Hold Instructions: Resume on 07/17/23. Do not resume until advised by your PCP Patient Comments: Take 1 tablet by mouth twice a day acetaminophen 325 mg Tablet 650 mg PO Q6H PRN PRNQty: 30 0RF
[2023-07-04 18:46] LABS: Bilirubin Negative (Negative); Blood Trace-intact (Negative); Clarity Sl Cloudy (Clear); Glucose 100 mg/dL (Negative); Ketones Negative (Negative); Leukocyte Esterase Moderate (Negative); Nitrite Positive (Negative); Specific Gravity 1.015 (1.005-1.025); Urobilinogen 0.2 mg/dL (Up to 0.2)
[2023-07-04 18:59] LABS: Bacteria Many HPF (Negative); C & S Indicated? No/Sq. Contamination; Crystals Negative HPF (Negative); Epithelial Cells Moderate HPF (Negative); Mucus Negative (Negative); Other Cells Rare Transitional (Negative); RBC 0-2 HPF (0-2); WBC >50 HPF (0-5)
--- NOTE | 2023-07-04 19:45 | HPE_ITS ---
Date of service: 07/04/23 Time of Service: 19:45 Assessment and Plan Assessment and plan (1) Acute UTI: Status: Acute Assessment and plan: UTI, manifesting with weakness and ambulatory dysfunction. Will begin empiric Rocephin, await urine culture, and begin PT. HTN: continue Lopressor and Lasix as is. Consider third agent if systolics remain>160, but avoid ÁNGEL or ARB due to renal effects (peak Creat 2.8, now 1.1) DM (note she states she has not had her Glipizide today): resume Glipizide and trend sugar. Consider restart Metformin as Creatinine now down to 1.1 Reviewed ADs, states unequivocally, and on repeated questioning, that she does not want any CPR. History of Present Illness History of Present Illness Chief Complaint: WEAKNESS Narrative: 77 female here withe recent history of falling, latest today, and presented for evaluation. Denies pain or injury, says she just settled slowly to floor on buttocks. Initial evaluation notable for hypertension (has recently had ÁNGEL discontinued for elevated creatinine). Patient given dose Lopressor 100 mg. Remainder of initial work up unrevealing. Patient evaluated by PT and report is they felt she she was not safe to ambulate. Further workup at this point demonstrates pyuria/bacteruria and I was asked to evaluate for dadmission. At present patient states only that continues to feel weak generally. Denies d ysuria, urgency, nausea or back pain. Review of Systems Narrative: per HPI PFSH All Active Problems Hx of falling (Acute) Acute UTI (Acute) Acute pain of right hip (Acute) Medical History Abnormal finding on breast imaging Acute CHF Acute dyspnea Acute pain of right hip Acute UTI Anemia Atrial fibrillation Atrial fibrillation with RVR Related hg 5.7, isolated Breast cancer CHF (congestive heart failure) related to Hg 5.7. Resolved. Nl echo Diabetes mellitus Discharge planning issues DVT prophylaxis Glaucoma Goiter HTN (hypertension) Hypercholesterolemia Leucocytosis Osteopenia Pleural effusion Squamous cell cancer of scalp and skin of neck Trochanteric bursitis Surgical History S/P breast lumpectomy S/P skin and subcutaneous tissue surgery Social History Smoking/Tobacco Use Status: Never Smoking risk assessment performed?: Yes Alcohol Intake: never Drug use: Never Substance use type: does not use Housing: house Do you feel safe at home: Yes Do you feel safe in your relationship?: Yes Meds Allergies and Home Medications Allergies Allergy/AdvReac Type Severity Reaction Status Date / Time famotidine Allergy Severe Verified 07/04/23 09:18 doxazosin [From Cardura] Allergy Intermediate Verified 07/04/23 09:18 sitagliptin [From Januvia] Allergy Intermediate Verified 07/04/23 09:18 empagliflozin Allergy Verified 07/04/23 09:18 [From Jardiance] Home Medications Medication Instructions Recorded Confirmed Type glipizide 10 mg tablet 10 mg PO BID 07/12/21 07/04/23 History ferrous gluconate 324 mg (38 mg 27 mg PO DAILY 05/07/22 07/04/23 History iron) tablet mirtazapine 7.5 mg tablet 1 tab PO HS 05/07/22 07/04/23 History metoprolol succinate 100 mg 100 mg PO BID #0 tabs 05/08/22 07/04/23 Rx tablet,extended release 24 hr citalopram 20 mg tablet 20 mg PO DAILY 12/30/22 07/04/23 History levothyroxine 100 mcg capsule 100 mcg PO DAILY 12/30/22 07/04/23 History lisinopril 10 mg tablet 10 mg PO DAILY 12/30/22 07/04/23 History simvastatin 20 mg tablet 20 mg PO HS 12/30/22 07/04/23 History furosemide 20 mg tablet 20 mg PO DAILY 06/12/23 07/04/23 History metformin 500 mg tablet,extended 500 mg PO BID 06/17/23 07/04/23 History release 24hr acetaminophen 325 mg tablet 650 mg PO Q6H PRN PRN #30 tabs 06/20/23 07/04/23 Rx Exam Narrative Exam Narrative: 174/73, 83, 36.7, 20, 95% RA. HEENT alopecia; neck supple; lungs clear; heart RRR; abdomen soft and NT; back no CVAT; extremities w/o edema; neuro Ox3, moves all 4s, I did not repeat attempts to walk Results Labs 07/04/23 12:36 07/04/23 12:36 Labs: Laboratory Results - last 24 hr 07/04/23 07/04/23 07/04/23 12:36 12:36 18:41 WBC 9.69 RBC 3.10 L Hgb 8.7 L Hct 28.0 L MCV 90 MCH 28.1 MCHC 31.1 L RDW 16.1 H Plt Count 183 MPV 9.9 Immature Gran % 0.5 Neutrophils % 79.1 Lymphocytes % 11.8 Monocytes % 5.1 Eosinophils % 3.1 Basophils % 0.4 Nucleated RBC % 0.0 Absolute Neutrophils 7.67 H Absolute Lymphocytes 1.14 L Absolute Monocytes 0.49 Absolute Eosinophils 0.30 Absolute Basophils 0.04 Sodium 133 L Potassium 4.6 Chloride 99 Carbon Dioxide 25.4 Anion Gap 8.6 BUN 17 Creatinine 1.1 H Est GFR (CKD-EPI 2020) 51.11 Glucose 305 H Calcium 9.9 Total Bilirubin 0.4 AST 11 L ALT 16 Alkaline Phosphatase 135 H Total Protein 7.2 Albumin 2.9 L TSH 1.03 Urine Color Yellow Urine Clarity Sl Cloudy Urine pH 6.0 Ur Specific Novelty 1.015 Urine Protein Trace H Urine Ketones Negative Urine Blood Trace-intact H Urine Nitrite Positive H Urine Bilirubin Negative Urine Urobilinogen 0.2 Ur Leukocyte Esterase Moderate H Urine RBC 0-2 Urine WBC >50 H Ur Epithelial Cells Moderate Urine Crystals Negative Urine Bacteria Many Urine Mucus Negative Urine Other Rare Transitional Ur Culture Indicated? No/Sq. Contamination Urine Glucose 100 H Last Vital Signs Temp 36.7 C 07/04/23 08:21 Pulse 83 07/04/23 17:02 Resp 20 07/04/23 17:20 BP 174/73 H 07/04/23 17:31 Pulse Ox 95 07/04/23 08:21 Time Spent Time spent with Patient: 40-54 minutes Time was spent: preparing to see the patient(eg.review tests), obtaining and/or reviewing separately otained hiistory, ordering medications,tests, procedures, referring, communicating with other health resident care technician and indepentently interpreting results
--- NOTE | 2023-07-04 20:00 | DI.VRAD_ITS ---
PROCEDURE INFORMATION: Exam: CT Head Without Contrast Exam date and time: 07/04/2023 7:17 PM Age: 77 years old Clinical indication: Other: History of falls; Prior surgery; Surgery date: 6+ months; Surgery type: Skin CA of scalp TECHNIQUE: Imaging protocol: Computed tomography of the head without contrast. Radiation optimization: All CT scans at this facility use at least one of these dose optimization techniques: automated exposure control; mA and/or kV adjustment per patient size (includes targeted exams where dose is matched to clinical indication); or iterative reconstruction. COMPARISON: CT HEAD WO/W 12/02/2021 2:55 PM FINDINGS: Brain: Mild volume loss. Chronic right basal ganglia lacunar infarction. No hemorrhage. Moderate white matter disease. No mass effect. Cerebral ventricles: No ventriculomegaly. Paranasal sinuses: Mucosal thickening on the right. No fluid levels. Mastoid air cells: Visualized mastoid air cells are well aerated. Bones/joints: Unremarkable. No acute fracture. Soft tissues: Left scalp calcifications are grossly stable IMPRESSION: No acute intracranial hemorrhage Chronic findings as noted Dictated and Authenticated by: González Raines MD. Ordering:RUBI Carvajal MD
[2023-07-05] VITALS (8 sets, daily range): BP systolic 96–146; BP diastolic 58–84; PULSE 74–153; RESP 16–18; TEMP 36.4–37.2; O2SAT 94–99
[2023-07-05] MEDS: Simvastatin 20 MG TAB PO ×2 (00:16→20:19)
[2023-07-05] MEDS: Melatonin 3 MG TAB 6 MG PO (00:16)
[2023-07-05] MEDS: cefTRIAXone 1,000 MG in Normal Saline 50 ML 100 MG IVPB (00:17)
[2023-07-05] MEDS: Mirtazapine 15 MG TAB 7.5 MG PO ×2 (00:17→20:19)
[2023-07-05] MEDS: Levothyroxine 100 MCG TAB PO (06:22)
[2023-07-05] MEDS: Furosemide 20 MG TAB PO (09:05)
[2023-07-05] MEDS: Citalopram 20 MG TAB PO (09:05)
[2023-07-05] MEDS: glipiZIDE 10 MG TAB PO ×2 (09:06→16:40)
[2023-07-05] MEDS: Metoprolol CR 100 MG TABCR PO ×2 (09:06→20:19)
[2023-07-05] MEDS: Ferrous Gluconate 324 MG TAB PO (09:14)
[2023-07-05 10:28] LABS: Glucose 443 mg/dL (74-106)
--- NOTE | 2023-07-05 10:45 | INITIAL_ITS ---
Date of service: 07/05/23 Time of Service: 10:45 Care Management Initial Assmt Initial Assessment REASON FOR HOSPITALIZATION:: UTI, weakness PREVIOUS FUNCTIONAL STATUS/SOCIAL/FAMILY SUPPORTS:: Arlene lives in [place] with her Quirino. Their only son of cancer at home 3 years ago. 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 She no longer drives but is independent with her ADLs at baseline. Prior to falling a few weeks ago, Arlene did the cooking, laundry and maintained her home. CURRENT FUNCTIONAL STATUS:: Arlene is lying in bed when CM comes to meet with her. Her , Quirino, is present in the room. Arlene reports she has been working with HH PT and was doing well with her FWW at home but then she had another fall. Since then, she has been unable to stand up and walk due to a fear of falling again and getting hurt. She additionally reports feeling tired and weak all the time. She expresses a desire to return home once she has regained some strength. ADVANCE DIRECTIVES:: None on file but patient is a DNR/DNI. Has patient been provided with info about the portal/API?: Yes Did the patient sign up for the portal?: No CODE STATUS:: DNR/DNI INSURANCE COVERAGE / FINANCIAL ISSUES:: Medicare. CURRENT HOME/COMMUNITY SERVICES/EQUIPMENT:: Home Health RN and PT services, rollator, FWW and grab bars next to the toilet in the bathroom. PRIMARY CARE PHYSICIAN:: Geovanna Anders, REG, WAD COMPRESSOR OPERATOR ADJUSTER- POTENTIAL DISCHARGE NEEDS:: Follow up with PCP, resumption of HH services, and plan of care. PATIENT/FAMILY EDUCATION NEEDS:: Review of discharge instructions including medications, limitations and follow up plan of care; discuss Ask Me Three. ANTICIPATED BARRIERS TO DISCHARGE:: Patient's impaired mobility. TRANSPORTATION:: Via private vehicle with . PLAN:: Arlene will likely be discharged home with a resumption of HH PT services when medically cleared by provider. She would benefit from ongoing therapy to address anxiety issues and is agreeable to meeting with a therapist. She will follow up with her PCP and plan of care as instructed. She will be transported home by her via private vehicle when ready. CM will continue to follow. PFSH All Active Problems Acute UTI (Acute) Hx of falling (Acute) Acute pain of right hip (Acute) Medical History Abnormal finding on breast imaging Acute CHF Acute dyspnea Acute pain of right hip Acute UTI Anemia Atrial fibrillation Atrial fibrillation with RVR Related hg 5.7, isolated Breast cancer CHF (congestive heart failure) related to Hg 5.7. Resolved. Nl echo Diabetes mellitus Discharge planning issues DVT prophylaxis Glaucoma Goiter HTN (hypertension) Hypercholesterolemia Leucocytosis Osteopenia Pleural effusion Squamous cell cancer of scalp and skin of neck Trochanteric bursitis Surgical History S/P breast lumpectomy S/P skin and subcutaneous tissue surgery Social History Smoking/Tobacco Use Status: Never Smoking risk assessment performed?: Yes Alcohol Intake: never Drug use: Never Substance use type: does not use Housing: house Do you feel safe at home: Yes Do you feel safe in your relationship?: Yes Readmission Within the Past 30 Days Yes or No: Yes Date of First Admission Date of 1st Admission: 06/17/23 Date of this Admission Date of Admission: 07/04/23 This admission was: Through ED Office Visit Since 1st Admission Have you seen your PCP in the office since discharge?: No Had an appointment Been Scheduled?: Yes Date of Scheduled Appointment: Tuesday Speicalist Appointments Have you seen any other specialist since your 1st Admission?: No I. Interview patient and/or Family Difficulty reaching your doctor or getting an office appt?: No Have you had trouble purchasing/ or taking medication?: No How do you take your medications and set up your pills?: dispenses her medication as prescribed Have you had trouble with getting meals at home?: No Describe your typical meals since you have been home: is now cooking the meals Did you feel ready for discharge when you left the last time: Yes Were services received that you thought were set up on disch: Yes What services were received?: HH PT Did you call your physician beore you came to the ED?: No How do you think you became sick enough to come back?: I fell again and got scared. If the patient had a VNA ordered Did the patient have a VNA order?: Yes Did you call the VNA before you came?: No Did the VNA tell you to come to the hospital?: No Do you know if the VNA called your physician?: No Ask the Care Team Members: What do you think caused the patient to be readmitted: Patient had another fall at home and presented in the ED for evaluation. ED visits How many ED visits in the past 12 months: 2 Assessment for Readmission Summary of readmission circumstances, based upon interviews: 77 year old woman with a UTI, weakness and ambulatory dysfunction who fell at home.
--- NOTE | 2023-07-05 10:54 | IN_ITS ---
Date of service: 07/05/23 Time of Service: 10:21 PT Notes Visit Reasons: UTI, weakness Physical Therapy Inpatient Initial Evaluation Date: 07/05/2023 Referring Doctor:? Gabriele Medina MD PT Orders: PT CONSULT: Limited ability Precautions: Fall. Standard. Activity as tolerated. Patient Profile/Admitting Diagnosis:? Patient is a 77-year-old female patient with past medical history significant for CHF,? AF,? and squamous cell CA who presented to the ED yesterday, 07/04/2023 and was also seen by this PT due to repeated falls, high anxiety, and difficulty with walking. Recommendation against going home due to safety reasons were given in yesterday's evaluation and patient was admitted for rehabilitation and management of acute UTI, functional mobility decline, and falls. PMHX: All Active Problems? Hx of falling (Acute) Acute UTI (Acute) Acute pain of right hip (Acute) Medical History? Abnormal finding on breast imaging Acute CHF Acute dyspnea Acute pain of right hip Acute UTI Anemia Atrial fibrillation Atrial fibrillation with RVR Related hg 5.7, isolatedBreast cancer CHF (congestive heart failure) related to Hg 5.7. Resolved. Nl echo Diabetes mellitus Discharge planning issues DVT prophylaxis Glaucoma Goiter HTN (hypertension) Hypercholesterolemia Leucocytosis Osteopenia Pleural effusion Squamous cell cancer of scalp and skin of neck Trochanteric bursitis Surgical History? S/P breast lumpectomy S/P skin and subcutaneous tissue surgery Social History/Home Situation: Lives with in a private home with 2 steps to enter.? Independent with all aspects of ADLs prior to admission until two weeks from today's presentation.? Has a 4WW which she rarely used. Equipment Owned/DME: FWW Subjective: Patient appeared anxious about moving but with extensive encouragement, agreed to use STEDY lift to transfer from edge of bed to bedside recliner secured by this PT for her. States that she felt that she was going to fall despite being safely secured in the STEDY machine. Calmed down when she was told that the lift has a buttock pads/seat and whitaker/leg guards that will make it impossible for her to fall. Brought up her blood sugar being at 400+ mg/dL but Nurse Bobbi is aware and has given patient medication for it. Objective: General Observation: Supine in bed.? Anxious about moving ou of bed. Quirino present in room throughout evaluatation. Mental Status: Alert and oriented as to person, place, time, and purpose. Anxiety limiting her ability to focus, needs to be encouraged extensively to focus to task to prevent development of panic attack during movement. Pain: Denies Vital Signs: Closely monitored by nursing staff ROM: Right Upper Extremity: Shoulder Flexion lacks the last 25% of AROM. Shoulder abduction lacks the last 25% of AROM. Elbow flexion WFL. Wrist flexion WFL. Functional opening and closing of hand WFL. Left Upper Extremity: Shoulder Flexion lacks the last 25% of AROM. Shoulder abduction lacks the last 25% of AROM. Elbow flexion WFL. Wrist flexion WFL. Functional opening and closing of hand WFL. Right Lower Extremity: Hip flexion lacks the last 255 of AROM. Hip abduction lacks the last 255 of AROM. Knee flexion WFL. Ankle dorsiflexion to neutral only. Ankle plantarflexion WFL. Left Lower Extremity: Hip flexion lacks the last 255 of AROM. Hip abduction lacks the last 255 of AROM. Knee flexion WFL. Ankle dorsiflexion to neutral only. Ankle plantarflexion WFL. Strength: Right Upper Extremity: Shoulder flexors 3-/5. Shoulder abductors 3-/5. Elbow flexors 4-/5. Elbow extensors 4-/5. Direct Chill Casting Operator strong. Left Upper Extremity: Shoulder flexors 3-/5. Shoulder abductors 3-/5. Elbow flexors 4-/5. Elbow extensors 4-/5. Direct Chill Casting Operator strong. Right Lower Extremity: Hip flexors 3-/5. Hip abductors 3-/5. Knee flexors 4-/5. Knee extensors 4-/5. Ankle dorsiflexors 3-/5. Ankle plantarflexors 4-/5. Left Lower Extremity: Hip flexors 3-/5. Hip abductors 3-/5. Knee flexors 4-/5. Knee extensors 4-/5. Ankle dorsiflexors 3-/5. Ankle plantarflexors 4-/5. Bed Mobility/Transfers: Supine to sit minimal assist with HOB at 30 degrees Sit to stand stand by assist of 2 with STEDY with cues provided to use B UE for support and to minimize anxiety Stand to sit contact guard assist of 2 with cues provided to use B UE for support Bed to reclining chair stand by assist of 2 with STEDY with cues provided to use B UE for support and to minimize anxiety Gait: Unable and unsafe at this time due to high anxiety level Balance: Static Sitting: Good Dynamic Sitting: Fair Static Standing: Unable Dynamic Standing: Unable Special Tests: Mobility Limitations Standardized Measure [facility]-PAC 6 clicks Basic Mobility Inpatient Short Form: Raw Score: 11? CMS Score: 73% deficit? ? ? Informed Consent/Education:? Patient was instructed in purpose of PT consult and plan of care. Agreeable to proceed with established PT POC to achieve personal goals. Assessment: Anxiety level with moving and weight bearing high. Fearfulness of falling preventing patient from achiveinign mobility goals at this time. Patient presents with clinical signs and symptoms consistent with current/admitting diagnoses that have resulted to mobility limitations, gait instability, general ized weakness, and overall ADL decline as demonstrated by the following impairment level findings: 1.? Decreased strength to R hip major muscle groups 2.? Impaired sitting/standing balance 3.? Impaired activity tolerance 4.? Limitation of joint range of motion in B shoulders and hips 5. High anxiety from fearfulness of falling Impairments are contributing to the following functional limitations: 1.? Decline in bed mobility skills 2.? Decline in transfer skills 3.? Difficulty with ambulation without assistive device and physical assistance 4.? Increased completion time for mobility ADL performance 5.? Increased risk for falls 6.? Difficulty with managing steps alone safely Patient is assessed as a 76135 moderate complexity based on the following: History: 77-year-old female with past medical history as indicated above Examination: Demonstrable impairment in strength, balance, and mobility level with underlying impairments and functional limitations as exhibited above as well as deficit score of 73% utilizing the [facility] Mobility Inpatient Short Form Presentation: Evolving Decision Makin moderate complexity Goals: Goals X1 week 1. Supine-Sit independent 2. Sit-Supine independent 3. Sit-Stand independent 4. Stand-Sit independent with FWW 5. Bed-Chair independent with FWW 6. Chair-Bed independent with FWW 7. Independent gait on level surface with use of FWW for at least 30 feet without report of pain nor dyspnea Plan of Care/Treatment Plan: Will plan on doing a one-time treatment to educate patient on safe mobility performance using FWW. DISCHARGE RECOMMENDATIONS: [] ? Home with no services [] [] ? Home with services [specify] [] ? Home with outpatient PT [] [] ? SNF for continued rehabilitation [] [] ? [facility] [] [] ? SNF versus LTC based on ability to participate and progress [] [X]? SNF vs PT admission for continued mobility progression,? strengthening,? ADL retraining,? and fall reduction strategies.? TREATMENT CODE/TIME: 24681 x 20 minutes,? 81694 x 19 minutes beginning at 10:21 AM. Thank you for the opportunity to participate in the care of this patient. Eneida Butcher PT, DPT, CLT [facility] [place], [place]
[2023-07-05 12:13] LABS: Anion Gap 9.8 mmol/L (3-11); BUN 22 mg/dL (7-18); CO2 24.2 mmol/L (21.0-32.0); CREATININE 1.3 mg/dL (0.55-1.02); Chloride 98 mmol/L (98-107); Estimated GFR 41.83 (mL/min/1.73m2); Potassium 4.6 mmol/L (3.5-5.1); Sodium 132 mmol/L (136-145)
[2023-07-05] MEDS: Insulin Aspart 300 UNITS/3 ML PEN SC ×2 (12:14→16:41)
[2023-07-05] MEDS: Normal Saline Flush 10 ML SYR (12:14)
[2023-07-05] MEDS: Prochlorperazine 10 MG/2 ML VIAL 5 MG IVP (12:14)
[2023-07-05] MEDS: metFORMIN 500 MG TAB PO ×2 (12:14→16:40)
[2023-07-05 12:19] LABS: Glucose 443 mg/dL (74-106)
[2023-07-05] MEDS: Metoprolol 25 MG TAB PO (13:05)
[2023-07-05 13:10] LABS: Hemoglobin A1C 8.5 % (<5.7)
--- NOTE | 2023-07-05 14:00 | PGE_ITS ---
Date of Service Date of service: 07/05/23 Time of Service: 14:05 Assessment and Plan Assessment and plan (1) Acute UTI: Status: Acute Assessment and plan: -presented with weakness and ambulatory dysfunction. -started on empiric Rocephin, now day2 await urine culture, and begin PT. -f/u urine culture results (2) Atrial fibrillation: Assessment and plan: -Normally takes 100mg toprol-XL BID but missed her dose SHIPPING SERVICES SALES REPRESENTATIVE and was given 100mg PO lopressor on the day of admission. -This AM HR raning from 110-150 at rest, likely due to missed doses of SHIPPING SERVICES SALES REPRESENTATIVE toprol-XL -has now been ordered for SHIPPING SERVICES SALES REPRESENTATIVE 100mg toprol-XL BID -given an additional 25mg PO lopressor -will consider increasing BID toprol-XL if additional PO lopressor is needed (3) Diabetes mellitus: Assessment and plan: -patient did not take her glipizide or metformin SHIPPING SERVICES SALES REPRESENTATIVE on day of admission -Glipizide restarted on admission and trend sugar. -glucose levels elevated despite restarting metformin -also likely due to missed SHIPPING SERVICES SALES REPRESENTATIVE medications -continue sliding scale and consider adding scheduled subcu insulin if glucose levels remain elevated Qualifiers: Diabetes mellitus type: type 2 Diabetes mellitus assisted insulin use: without terminal clerk use (4) HTN (hypertension): Assessment and plan: continue Lopressor and Lasix as is. Consider third agent if systolics remain>160, but avoid ÁNGEL or ARB due to renal effects (peak Creat 2.8, now 1.1) Subjective Subjective Patient reports: feels better (Patients states that she was nauseous this morning but that this has now resolved.) Exam Const General: cooperative, comfortable and no acute distress Resp Effort & Inspection: normal respiratory effort and able to speak in complete sentences Auscultation: clear to auscultation bilaterally, no rhonchi and no wheezes Cardio Rate: tachycardic Rhythm: abnormal rhythm (rate 110-140bpm at rest) irregularly irregular Heart Sounds: S1 normal, S2 normal, no gallops and no murmurs GI Inspection: normal to inspection Palpation: soft, no guarding and nontender Auscultation: normal bowel sounds Skin General skin exam: no rashes or lesions noted Trauma: no lacerations or abrasions Neuro General: patient alert, patient awake and patient oriented x3 Cranial Nerves: CN's II-XI intact bilaterally Cognition: normal cognition Speech: speech normal Motor: strength abnormal (diffusely weak throughout bilateral upper and lower extremities) Sensory Exam: no sensory deficits noted Psych Appearance: grossly normal Mental Status: mental status grossly normal Speech and Movement: speech and movement normal Mood: congruent mood Affect: normal affect Attitude: cooperative Thought Process: normal Thought Content: normal Insight: insight good Judgment: judgment good Objective Last Vital Signs Temp 36.6 C 07/05/23 11:53 Pulse 153 H 07/05/23 13:34 Resp 17 07/05/23 11:53 BP 120/60 07/05/23 13:04 Pulse Ox 94 07/05/23 11:53 Laboratory Results - last 24 hr 07/04/23 07/05/23 07/05/23 18:41 10:05 10:05 Sodium Potassium Chloride Carbon Dioxide Anion Gap BUN Creatinine Est GFR (CKD-EPI 2020) Glucose 443 H Hemoglobin A1c 8.5 H Calcium Urine Color Yellow Urine Clarity Sl Cloudy Urine pH 6.0 Ur Specific [place] 1.015 Urine Protein Trace H Urine Ketones Negative Urine Blood Trace-intact H Urine Nitrite Positive H Urine Bilirubin Negative Urine Urobilinogen 0.2 Ur Leukocyte Esterase Moderate H Urine RBC 0-2 Urine WBC >50 H Ur Epithelial Cells Moderate Urine Crystals Negative Urine Bacteria Many Urine Mucus Negative Urine Other Rare Transitional Ur Culture Indicated? No/Sq. Contamination Urine Glucose 100 H 07/05/23 10:09 Sodium 132 L Potassium 4.6 Chloride 98 Carbon Dioxide 24.2 Anion Gap 9.8 BUN 22 H Creatinine 1.3 H Est GFR (CKD-EPI 2020) 41.83 Glucose 443 H Hemoglobin A1c Calcium 10.0 Urine Color Urine Clarity Urine pH Ur Specific [place] Urine Protein Urine Ketones Urine Blood Urine Nitrite Urine Bilirubin Urine Urobilinogen Ur Leukocyte Esterase Urine RBC Urine WBC Ur Epithelial Cells Urine Crystals Urine Bacteria Urine Mucus Urine Other Ur Culture Indicated? Urine Glucose Reviewed Pertinent PMH: Yes Time Spent with Patient Time Spent with Patient: >50 minutes Time was spent: preparing to see the patient(eg.review tests), obtaining and/or reviewing separately otained hiistory, ordering medications,tests, procedures, indepentently interpreting results, counseling the patient and care coordination
--- NOTE | 2023-07-05 14:28 | PTTR_ITS ---
PT Notes Visit Reasons: UTI, weakness Inpatient Physical Therapy Treatment Note Date: 07/05/2023 Referring Doctor:? Cole Meraz,? PT Orders: PT CONSULT: Limited ability Precautions: Fall. Standard. Activity as tolerated. Subjective: Needs extensive encouragement to minimize anxiety during trasnfers and bed mobility. Quirino present and helpful during session this afternoon. Objective: General Observation: Sitting on chair.? Mental Status: Alert and oriented as to person, place, time, and purpose.? Anxiety limiting her ability to focus,? needs to be encouraged extensively to focus on tasks to prevent development of panic attack during movement. Pain: Denies Vital Signs: Closely monitored by nursing staff THERA ACT: Required maximal cueing for movement sequence and to dispel high level anxiety during bed mobility and transfer task performance. Also facilitated sit<>stand performance while in STEDY to increase postural control/stability as well as standing balance and tolerance. Bed Mobility/Transfers: Sit to stand minimal assist of 2 with STEDY with cues provided to use B UE for support and to minimize anxiety Stand to sit moderate assist of 2 with anxiety level building up as patient fell she was falling back onto bed Reclining chair to bed minimal assist of 2 with STEDY with cues provided to use B UE for support and to minimize anxiety Gait: Unable and unsafe at this time due to high anxiety level Balance: Static Sitting: Good Dynamic Sitting: Fair Static Standing: Unable Dynamic Standing: Unable Assessment: Anxiety level with moving and weight bearing high.? Fearfulness of falling preventing patient from achiveinign mobility goals at this time.? Patient presents with clinical signs and symptoms consistent with current/admitting diagnoses that have resulted to mobility limitations, gait instability, generalized weakness, and overall ADL decline as demonstrated by the following impairment level findings: 1.? Decreased strength to R hip major muscle groups 2.? Impaired sitting/standing balance 3.? Impaired activity tolerance 4.? Limitation of joint range of motion in B shoulders and hips 5.? High anxiety from fearfulness of falling Impairments are contributing to the following functional limitations: 1.? Decline in bed mobility skills 2.? Decline in transfer skills 3.? Difficulty with ambulation without assistive device and physical assistance 4.? Increased completion time for mobility ADL performance 5.? Increased risk for falls 6.? Difficulty with managing steps alone safely Plan of Care/Treatment Plan: 1-2x/day, 7 days/week x 1 week. Plan of care has been reviewed with the JAVA INTEGRATION DEVELOPER providing the service under Physical Therapy direction. Initiate Physical Therapy intervention for pain management as needed, strengthening, bed mobility, transfers, gait, stairs, balance training, and use of assistive device. DISCHARGE RECOMMENDATIONS: [] ? Home with no services [] [] ? Home with services [specify] [] ? Home with outpatient PT [] [] ? SNF for continued rehabilitation [] [] ? Franchise Sales Director Care [] [] ? SNF versus LTC based on ability to participate and progress [] [X]? SNF vs HH PT admission for continued mobility progression,? strengthening,? ADL retraining,? and fall reduction strategies.? TREATMENT CODE/TIME: 76982 x 31 minutes (2 units) beginning at 13:32 PM.
[2023-07-05] MEDS: Nystatin POWDER 15 GM JAR TP (21:03)
[2023-07-05] MEDS: cefTRIAXone 1 GM/50 ML BAG IV (21:17)
[2023-07-05] MEDS: Aquaphor Ointment 99 GM JAR TP (21:19)
[2023-07-06 03:56] VITALS: BP 94/58; PULSE 85; RESP 18; TEMP 36.7; O2SAT 99
[2023-07-06] MEDS: Levothyroxine 100 MCG TAB PO (05:44)
[2023-07-06 07:11] VITALS: BP 138/82; PULSE 59; TEMP 36.1; O2SAT 98
[2023-07-06 07:23] LABS: HCT 30.7 % (36.0-46.0); HGB 9.7 g/dL (11.2-15.7); MCH 28.4 pg (27.0-33.0); MCHC 31.6 % (32.0-36.0); MCV 90 fL (80-95); MPV 10.2 fL (8.0-11.0); Platelet Count 237 10^3/uL (130-400); RBC 3.42 10^6/uL (3.93-5.22); RDW 16.4 % (11.7-14.6); RDW-SD 53.3 fL; WBC 10.39 10^3/uL (4.4-10.8)
[2023-07-06] MEDS: Furosemide 20 MG TAB PO (07:29)
[2023-07-06] MEDS: Citalopram 20 MG TAB PO (07:29)
[2023-07-06] MEDS: glipiZIDE 10 MG TAB PO ×2 (07:29→16:09)
[2023-07-06] MEDS: metFORMIN 500 MG TAB PO ×2 (07:29→09:04)
[2023-07-06] MEDS: Metoprolol CR 100 MG TABCR PO ×2 (07:29→20:38)
[2023-07-06] MEDS: Ferrous Gluconate 324 MG TAB PO (07:29)
[2023-07-06] MEDS: Nystatin POWDER 15 GM JAR TP ×2 (07:30→20:38)
[2023-07-06 07:38] LABS: Anion Gap 10.1 mmol/L (3-11); BUN 33 mg/dL (7-18); CO2 24.9 mmol/L (21.0-32.0); CREATININE 1.5 mg/dL (0.55-1.02); Calcium 10.1 mg/dL (8.5-10.1); Chloride 100 mmol/L (98-107); Estimated GFR 35.23 (mL/min/1.73m2); Glucose 261 mg/dL (74-106); Potassium 4.4 mmol/L (3.5-5.1); Sodium 135 mmol/L (136-145)
[2023-07-06] MEDS: Insulin Aspart 300 UNITS/3 ML PEN SC ×4 (08:26→21:48)
--- NOTE | 2023-07-06 14:09 | DM INPTCON_ITS ---
Date of service: 07/06/23 Time of Service: 13:30 Diabetes Inpatient Consult Reason for Visit: Routine consult - diabetes education DESCRIPTION/ASSESSMENT: 77yo female admitted for UTI. PMH significant for DMII, HTN. PT triggered for routine diabetes education. Pt and present upon visit. Asked pt about diabetes mgt at home - she generalized that she eats what I am supposed to. Pt could not give detailed account of any carb counting or tracking at home. Explained pt's diet order and intent to keep carb intake consistent while admitted and will aim to keep meals between 45-65g CHO. She replied that the Patient Director Of Database Marketing lets her know if she's had too much or can't have something on the menu. PT demonsrated lower level of understanding of consistent carb diet. Pt somewhat discouraged at visit due to wanting to be discharged and unsure when this will happen. INTERVENTION: Pt not receptive to in-depth diabetes education at this time. Will provide my contact information for option for outpatient visits for educational support. Pt also expressed that she might be receptive to educational materials to review while admitted. PLAN: Will monitor labs, weight, oral intake at meals for significant changes and will f/u prior to discharge to offer education materials and outpt visit(s) if/when she is a little more receptive Time Spent in Nutritional Counseling and Treatment: 15 minutes
--- NOTE | 2023-07-06 14:14 | PTTR_ITS ---
Date of service: 07/06/23 Time of Service: 13:41 PT Notes Visit Reasons: UTI, weakness Inpatient Physical Therapy Treatment Note Date: 07/06/2023 Precautions: Fall. Standard. Activity as tolerated. Subjective: Very anxious this morning, was not safe to be moved. Anticipates that she will fall everytime she moves. Has not gone to toilet since this morning due to extreme anxiety and thought of her falling everytime she moves. No sensation of spinning nor dizziness. [place] present and helpful during session this afternoon. Agreeable to trying the bathroom again this time. Objective: General Observation: Sitting on chair.? Mental Status: Alert and oriented as to person, place, time, and purpose.? Anxiety limiting her ability to focus,? needs to be encouraged extensively to focus on tasks to prevent development of panic attack during movement. Pain: Denies Vital Signs: Closely monitored by nursing staff THERA ACT: Continues to require maximal cueing for movement sequence and to dispel high level anxiety during bed mobility and transfer task performance.? Also facilitated sit<>stand performance while in STEDY to increase postural control/stability as well as standing balance and tolerance. Bed Mobility/Transfers: Sit to stand minimal assist of 2 with STEDY with cues provided to use B UE for support and to minimize anxiety Stand to sit moderate assist of 2 with anxiety level building up as patient fell she was falling back onto bed Reclining chair to bed minimal assist of 2 with STEDY with cues provided to use B UE for support and to minimize anxiety Gait: Unable and unsafe at this time due to high anxiety level Balance: Static Sitting: Good Dynamic Sitting: Fair Static Standing: Unable Dynamic Standing: Unable ASSESSMENT: Aversion reaction to movement developing and causing fearfulness of falling which is primarily limiting functional mobility progression at this time. She will require consistent attempts at moving using mechanical device or inside parallel bars where patietn can feel secure whne in the SNF. unable to manage physicailly assisting with mobility ADL performance at home. Plan of Care/Treatment Plan: 1-2x/day, 7 days/week x 1 week. Plan of care has been reviewed with the WELL TREATMENT OFFSIDER providing the service under Physical Therapy direction. Initiate Physical Therapy intervention for pain management as needed, strengthening, bed mobility, transfers, gait, stairs, balance training, and use of assistive device. DISCHARGE RECOMMENDATIONS: [] ? Home with no services [] [] ? Home with services [specify] [] ? Home with outpatient PT [] [X] ? SNF for continued rehabilitation. Patient will benefit from home health PT services in order to progress mobility level using least restrictive assistive ambulatory device, assess home safety, identify additional equipment needs, and establish a functional maintenance program that will increase ability of patient to remain at home. [] ? Custodial Care [] [] ? SNF versus LTC based on ability to participate and progress [] TREATMENT CODE/TIME: 84940 x 31 minutes (2 units) beginning at 13:41 PM.
--- NOTE | 2023-07-06 14:52 | W.PM.PROGNOT ---
Date of Service Date of service: 07/06/23 Time of Service: 14:52 Assessment and Plan Assessment and plan (1) Acute UTI: Status: Acute Assessment and plan: -presented with weakness and ambulatory dysfunction. -started on empiric Rocephin, now day 3 need to re-culture urine culture, continue begin PT. (2) Atrial fibrillation: Assessment and plan: -continue 100mg toprol-XL BID -heart rate better controlled and above likely due to missed doses of SALVATIONIST toprol-XL (3) Diabetes mellitus: Assessment and plan: -patient did not take her glipizide or metformin SALVATIONIST on day of admission -Glipizide restarted on admission and trend sugar. -glucose levels elevated despite restarting metformin -also likely due to missed SALVATIONIST medications -continue sliding scale and consider adding scheduled subcu insulin if glucose levels remain elevated Qualifiers: Diabetes mellitus correction insulin use: without service attendant cafeteria use Diabetes mellitus type: type 2 (4) HTN (hypertension): Assessment and plan: continue Lopressor and Lasix as is. Consider third agent if systolics remain>160, but avoid ÁNGEL or ARB due to renal effects (peak Creat 2.8, now 1.1) (5) Discharge planning issues: Status: Acute Assessment and plan: case management following PT consulted discussed with Dr Orellana Subjective Subjective Patient reports: no new complaints, feels better, tolerating liquids well, tolerating a regular diet and afebrile; denies shortness of breath Exam Const General: cooperative, comfortable and no acute distress Resp Effort & Inspection: normal respiratory effort Auscultation: clear to auscultation bilaterally Cardio Rate: regular rate Rhythm: abnormal rhythm irregularly irregular GI Inspection: normal to inspection Palpation: soft and nontender Auscultation: normal bowel sounds Skin General skin exam: no rashes or lesions noted Neuro General: patient alert, patient awake and patient oriented x3 Cognition: normal cognition Speech: speech normal Motor: strength abnormal (diffusely weak throughout bilateral upper and lower extremities) Psych Appearance: grossly normal Mental Status: mental status grossly normal Speech and Movement: speech and movement normal Mood: congruent mood Affect: normal affect Attitude: cooperative Thought Process: normal Objective Last Vital Signs Temp 36.1 C L 07/06/23 07:11 Pulse 59 L 07/06/23 07:11 Resp 18 07/06/23 03:56 BP 138/82 07/06/23 07:11 Pulse Ox 98 07/06/23 07:11 Laboratory Results - last 24 hr 07/06/23 07/06/23 06:20 06:20 WBC 10.39 RBC 3.42 L Hgb 9.7 L Hct 30.7 L MCV 90 MCH 28.4 MCHC 31.6 L RDW 16.4 H Plt Count 237 MPV 10.2 Sodium 135 L Potassium 4.4 Chloride 100 Carbon Dioxide 24.9 Anion Gap 10.1 BUN 33 H Creatinine 1.5 H Est GFR (CKD-EPI 2020) 35.23 Glucose 261 H Calcium 10.1 Time Spent with Patient Time Spent with Patient: 35-49 minutes Time was spent: preparing to see the patient(eg.review tests), obtaining and/or reviewing separately otained hiistory, ordering medications,tests, procedures, indepentently interpreting results and counseling the patient
--- NOTE | 2023-07-06 14:53 | CHAPLAIN ---
I visited with Arlene and her Quirino. They told me about living in [place], on a private road, although they both grew up in [place]. Quirino' family had a camp in [place], so Quirino had been going there since he was very young. Quirino said that Arlene has received excellent care here. I explained my role and offered support. I will continue to visit.
[2023-07-06 15:00] VITALS: BP 111/64; PULSE 88; TEMP 36.4; O2SAT 100
[2023-07-06] MEDS: metFORMIN 500 MG TAB 1000 MG PO (16:10)
--- NOTE | 2023-07-06 17:47 | PDOC.CMPRO ---
Date of service: 07/06/23 Time of Service: 17:48 Care Management Progress Note Progress Note Text Progress Note Text: S/O: Arlene is sitting in a chair when CM comes to see her. Her is present in the room. Arlene states she worked with physical therapy today and things did not go so well. She again describes an intense fear of falling and says I feel like I'm going crazy. She says she wants to go home but needs to be able to walk before she can go home, as her is unable to care for her. She says she cannot afford to go to a senior care for rehab and cannot afford private caregivers. She additionally is not interested in applying for [facility] Medicaid at this time. CM discusses [facility] with Arlene and her and both agree to CM coordinating a referral. A: Arlene is a 77 year old female admitted to [facility] on 07/04/23 for a UTI and weakness. P: Arlene will likely remain at [facility] until she can safely be discharged home. A referral is sent to [facility] for review. An appointment is also made with DEVON Almanza, the Behavioral Health Specialist at patient's PCP's office, for Tuesday July 25, 2023 at 9:45 am. CM will continue to follow.
[2023-07-06 20:34] VITALS: BP 125/76; PULSE 81; RESP 16; TEMP 37; O2SAT 99
[2023-07-06] MEDS: Melatonin 3 MG TAB 6 MG PO (20:39)
[2023-07-06] MEDS: cefTRIAXone 1 GM/50 ML BAG IV (21:46)
[2023-07-06] MEDS: Simvastatin 20 MG TAB PO (21:47)
[2023-07-06] MEDS: Mirtazapine 15 MG TAB PO (21:47)
[2023-07-06] MEDS: Aquaphor Ointment 99 GM JAR TP (21:51)
[2023-07-06 23:31] VITALS: BP 126/58; PULSE 72; RESP 16; TEMP 36.8; O2SAT 98
[2023-07-06 23:56] VITALS: PULSE 76
[2023-07-07 02:49] VITALS: BP 131/52; PULSE 75; RESP 16; TEMP 36.2; O2SAT 98
[2023-07-07 03:17] LABS: Bilirubin Negative (Negative); Blood Moderate (Negative); Clarity Sl Cloudy (Clear); Glucose 100 mg/dL (Negative); Ketones Negative (Negative); Leukocyte Esterase Moderate (Negative); Nitrite Negative (Negative); Urobilinogen 0.2 mg/dL (Up to 0.2); pH 5.5 (5-8)
[2023-07-07 03:31] LABS: Bacteria Few HPF (Negative); C & S Indicated? No/Sq. Contamination; Casts 0-2 Hyaline LPF (Negative); Crystals Negative HPF (Negative); Epithelial Cells Many HPF (Negative); Mucus Negative (Negative); Other Cells Few Transitional (Negative)
[2023-07-07] MEDS: Levothyroxine 100 MCG TAB PO (06:01)
[2023-07-07] MEDS: Citalopram 20 MG TAB PO (07:37)
[2023-07-07] MEDS: metFORMIN 500 MG TAB 1000 MG PO (07:37)
[2023-07-07] MEDS: Furosemide 20 MG TAB PO (07:37)
[2023-07-07] MEDS: glipiZIDE 10 MG TAB PO ×2 (07:37→16:22)
[2023-07-07] MEDS: Ferrous Gluconate 324 MG TAB PO (07:38)
[2023-07-07] MEDS: Metoprolol CR 100 MG TABCR PO ×2 (07:38→21:06)
[2023-07-07] MEDS: Nystatin POWDER 15 GM JAR TP ×2 (07:39→21:06)
[2023-07-07 07:49] LABS: Abs Immature Grans 0.06 10^3/uL (0.0-0.06); Absolute Basophil Count 0.05 10^3/uL (0.0-0.2); Absolute Monocyte Count 0.74 10^3/uL (0.1-0.8); Absolute Neutrophil Count 6.42 10^3/uL (1.2-6.7); Basophils % 0.5; Eosinophils % 5.1; HCT 28.1 % (36.0-46.0); HGB 8.8 g/dL (11.2-15.7); Immature Grans % 0.6; Lymphocytes % 20.5; MCH 27.9 pg (27.0-33.0); MCHC 31.3 % (32.0-36.0); MCV 89 fL (80-95); MPV 10.2 fL (8.0-11.0); Monocytes % 7.6; Neutrophils % 65.7; Platelet Count 254 10^3/uL (130-400); RBC 3.15 10^6/uL (3.93-5.22); RDW 16.4 % (11.7-14.6); RDW-SD 53.9 fL; WBC 9.77 10^3/uL (4.4-10.8)
--- NOTE | 2023-07-07 08:58 | CMPROGNOTE_ITS ---
Date of service: 07/07/23 Time of Service: 08:58 Care Management Progress Note Progress Note Text Progress Note Text: S/O:? Arlene was sitting up in bed when CM met with her. She was polite but seemed a bit reluctant to engage with CM. Arlene continues to experience severe anxiety when attempts are made to get her up or to ambulate. She has still not walked with PT; she is a steady lift transfer. CM again explained to her that she is in observation status and that she does not meet criteria for admission. Arlene stated that she does not have much money and cannot afford to pay out of pocket for care. CM offered to assist with the completion of a Patient Financial Assistance packet and Arlene agreed. A referral was sent to [facility]. If accepted for admission the goal would be to control her anxiety and be able to return home. A:? Arlene is a 77 year old female admitted to [facility] on 07/04/23 for a UTI and weakness. P:? Arlene will likely remain at [facility] until she can safely be discharged home.? A referral is sent to [facility] for review.? An appointment is also made with DEVON Almanza, the Behavioral Health Specialist at patient's PCP's office, for Tuesday July 25, 2023 at 9:45 am.? CM will continue to follow.
[2023-07-07 09:13] LABS: BUN 41 mg/dL (7-18); CREATININE 1.9 mg/dL (0.55-1.02); Calcium 9.6 mg/dL (8.5-10.1); Chloride 98 mmol/L (98-107); Estimated GFR 26.53 (mL/min/1.73m2); Glucose 112 mg/dL (74-106); Magnesium 1.5 mg/dL (1.8-2.4); Potassium 4.3 mmol/L (3.5-5.1); Sodium 134 mmol/L (136-145)
[2023-07-07 11:10] VITALS: BP 143/70; PULSE 72; RESP 19; TEMP 36.6; O2SAT 100
--- NOTE | 2023-07-07 11:58 | PT.INTREAT ---
PT Notes Visit Reasons: UTI, weakness Inpatient Physical Therapy Treatment Note [facility] Date: 07/07/23 PRECAUTIONS:fall, standard SUBJECTIVE: Arlene states that she remains very fearful of falling. She is agreeable to trying to stand with the Steady Lift. OBJECTIVE: ? PAIN: 3/10 right hip ? Therapeutic Activities (12857e1): Direct one-on-one instruction in dynamic activities to improve functional performance. ? BED MOBILITY/TRANSFERS? Rolling L/R: mod A initially, with verbal and tactile cues able to progress to SBA with UE support to rails Supine-sit: mod A x 2? Sit-stand: min A x 2 with Steady? Stand-sit: min A x 1 from Steady ? Bed-Chair: Steady and assist of 2 ? Provided skilled cues and instruction on performance and technique throughout. Requires reassurance and cues for technique throughout. ? Therapeutic Exercises (07455r1): Direct one-on-one instruction in therapeutic exercises to develop strength, endurance, range of motion and flexibility.?Provided skilled instruction in proper exercise performance. Requires constant verbal cueing and reminders for effective completion. Provided skilled manual cues to facilitate proper muscle recruitment and/or form: Instructed in bed exercises for completion between PT sessions. Written list on white board: 1. ankle pumps 10x 2. heel slides 10x 3. SLR 10x supine hip AB/AD 10x supine to left rolling 10x sidelying hip AB 10x right, with mod A to trunk and UE support to rail mini squats in Steady 5x ASSESSMENT:? Improved tolerance to transfer training and LE strengthening today. Very anxious. sat out today's session in hopes that she would better participate, which seemed to be beneficial. She is agreeable to attempting to stand at FWW later this afternoon. PLAN: Continue progressing strengthening and transfer training. TREATMENT CODE/TIME: [id number] (43182, 40012) Cecilia Jung, PT, DPT [facility]
--- NOTE | 2023-07-07 14:23 | PT.INTREAT ---
PT Notes Visit Reasons: UTI, weakness SUBJECTIVE: Arlene states that she has set a goal for herself to try walking to the commode tomorrow. She is agreeable to stand to the walker today. OBJECTIVE:? Therapeutic Activities - (69525 x1): instruction in dynamic activities with one on one patient contact by the provider to improve functional performance?as follows: ? Instructed in techniques for supine-sit transfer, with difficulty following commands for technique. Requires mod A x 1 for supine-sit transfer. Completed x 3, with cues for rolling to improve ease of transfer, although with limited carryover. Performed sit-stand x 3, with mod A and bed elevated. Requires max cues for hand placement and technique. Patient grabs for front bar of FWW during transfer, despite continuous cues for hand placement. Able to statically stand 30 seconds x 3 with UE support to FWW Takes single side step with UE support to FWW, with rapid sit back to bed, with limited safety awareness. Patient reports getting scared during step and feeling she needed to sit. Instructed in effective transfer sit-supine. Patient struggles with following commands, at times reaching for FWW and demonstrates poorly controlled descent to supine position, requiring max A for repositioning. Practiced scooting in bed, with patient performing partial bridge x 10. Total Treatment Time: 15 minutes ([id number]) A/P: Continue progressing strengthening and gait/transfer training. Patient agreeable to attempt transfer to commode tomorrow. Will require assist of 2 to attempt. CC:
[2023-07-07 14:42] LABS: Bilirubin Negative (Negative); Blood Negative (Negative); Clarity Sl Cloudy (Clear); Glucose Negative (Negative); Ketones Negative (Negative); Leukocyte Esterase Small (Negative); Nitrite Negative (Negative); Urobilinogen 0.2 mg/dL (Up to 0.2); pH 5.5 (5-8)
[2023-07-07 14:49] LABS: Bacteria Rare HPF (Negative); C & S Indicated? Yes; Casts 0-2 Hyaline LPF (Negative); Crystals Negative HPF (Negative); Epithelial Cells Few HPF (Negative); Mucus Trace (Negative); RBC Negative HPF (0-2)
[2023-07-07 15:12] VITALS: BP 120/76; PULSE 76; RESP 18; TEMP 36.5; O2SAT 99
[2023-07-07] MEDS: MAGNESIUM SULFATE 2 GM/50 ML BAG IVPB (16:32)
--- NOTE | 2023-07-07 17:06 | W.PM.PROGNOT ---
Date of Service Date of service: 07/07/23 Time of Service: 17:06 Assessment and Plan Assessment and plan (1) Acute UTI: Status: Acute Assessment and plan: -presented with weakness and ambulatory dysfunction. -started on empiric Rocephin, now day 4 need to re-culture urine culture, samples continue to be contaminated, will obtain straight cath sample (2) Atrial fibrillation: Assessment and plan: -continue 100mg toprol-XL BID -rate controlled (3) Diabetes mellitus: Assessment and plan: will hold metformin as creatinine rising blood sugars well controlled today -continue sliding scale and glipizide Qualifiers: Diabetes mellitus type: type 2 Diabetes mellitus intermediate manager insulin use: without intermediate manager use (4) HTN (hypertension): Assessment and plan: blood pressure well controlled, will continue Lopressor and Lasix for now but if creatinine continues to rise, will stop lasix and consider another agent but avoid ÁNGEL or ARB due to renal effects creatinine rising, (5) Discharge planning issues: Status: Acute Assessment and plan: case management following PT consulted does not meet inpatient criteria, barriers to discharge are reluctance to work with PT and ambulate d/t fear of falling. consider psychiatric admission for medication management in elderly at risk for polypharmacy and increased fall risk d/t medication side effect. we did increase mirtazipine dose to see if this helps discussed with Dr Orellana Subjective Subjective Patient reports: tolerating liquids well, tolerating a regular diet, bowel movement and afebrile; denies shortness of breath Interval history since last seen: continues to be reluctant to work with PT d/t fear of falling. Exam Const General: cooperative, comfortable and no acute distress Resp Effort & Inspection: normal respiratory effort Auscultation: clear to auscultation bilaterally Cardio Rate: regular rate Rhythm: abnormal rhythm irregularly irregular GI Inspection: normal to inspection Palpation: soft and nontender Auscultation: normal bowel sounds Skin General skin exam: no rashes or lesions noted Neuro General: patient alert, patient awake and patient oriented x3 Cognition: normal cognition Speech: speech normal Psych Appearance: grossly normal Mental Status: mental status grossly normal Speech and Movement: speech and movement normal Mood: congruent mood Affect: normal affect Attitude: cooperative Thought Process: normal Objective Last Vital Signs Temp 36.5 C 07/07/23 15:12 Pulse 76 07/07/23 15:12 Resp 18 07/07/23 15:12 BP 120/76 07/07/23 15:12 Pulse Ox 99 07/07/23 15:12 Laboratory Results - last 24 hr 07/07/23 07/07/23 07/07/23 03:00 06:40 06:40 WBC 9.77 RBC 3.15 L Hgb 8.8 L Hct 28.1 L MCV 89 MCH 27.9 MCHC 31.3 L RDW 16.4 H Plt Count 254 MPV 10.2 Immature Gran % 0.6 Neutrophils % 65.7 Lymphocytes % 20.5 Monocytes % 7.6 Eosinophils % 5.1 Basophils % 0.5 Nucleated RBC % 0.0 Absolute Neutrophils 6.42 Absolute Lymphocytes 2.00 Absolute Monocytes 0.74 Absolute Eosinophils 0.50 Absolute Basophils 0.05 Sodium 134 L Potassium 4.3 Chloride 98 Carbon Dioxide 25.0 Anion Gap 11.0 BUN 41 H Creatinine 1.9 H Est GFR (CKD-EPI 2020) 26.53 Glucose 112 H Calcium 9.6 Magnesium 1.5 L Urine Color Yellow Urine Clarity Sl Cloudy Urine pH 5.5 Ur Specific [place] 1.020 Urine Protein 30 H Urine Ketones Negative Urine Blood Moderate H Urine Nitrite Negative Urine Bilirubin Negative Urine Urobilinogen 0.2 Ur Leukocyte Esterase Moderate H Urine RBC 5-10 H Urine WBC 10-20 H Ur Epithelial Cells Many Urine Crystals Negative Urine Bacteria Few Urine Casts 0-2 Hyaline Urine Mucus Negative Urine Other Few Transitional Ur Culture Indicated? No/Sq. Contamination Urine Glucose 100 H 07/07/23 13:29 WBC RBC Hgb Hct MCV MCH MCHC RDW Plt Count MPV Immature Gran % Neutrophils % Lymphocytes % Monocytes % Eosinophils % Basophils % Nucleated RBC % Absolute Neutrophils Absolute Lymphocytes Absolute Monocytes Absolute Eosinophils Absolute Basophils Sodium Potassium Chloride Carbon Dioxide Anion Gap BUN Creatinine Est GFR (CKD-EPI 2020) Glucose Calcium Magnesium Urine Color Yellow Urine Clarity Sl Cloudy Urine pH 5.5 Ur Specific [place] 1.020 Urine Protein Negative Urine Ketones Negative Urine Blood Negative Urine Nitrite Negative Urine Bilirubin Negative Urine Urobilinogen 0.2 Ur Leukocyte Esterase Small H Urine RBC Negative Urine WBC 10-20 H Ur Epithelial Cells Few Urine Crystals Negative Urine Bacteria Rare Urine Casts 0-2 Hyaline Urine Mucus Trace Urine Other Ur Culture Indicated? Yes Urine Glucose Negative Time Spent with Patient Time Spent with Patient: 25-34 minutes Time was spent: preparing to see the patient(eg.review tests), ordering medications,tests, procedures, referring, communicating with other health anesthesiologist and critical care, indepentently interpreting results and counseling the patient
[2023-07-07 19:34] VITALS: BP 147/81; PULSE 79; RESP 16; TEMP 36.4; O2SAT 99
[2023-07-07] MEDS: Melatonin 3 MG TAB 6 MG PO (21:05)
[2023-07-07] MEDS: Acetaminophen 325 MG TAB 650 MG PO (21:06)
[2023-07-07] MEDS: Simvastatin 20 MG TAB PO (21:11)
[2023-07-07] MEDS: cefTRIAXone 1 GM/50 ML BAG IV (21:12)
[2023-07-07] MEDS: Mirtazapine 15 MG TAB PO (21:12)
[2023-07-07] MEDS: Aquaphor Ointment 99 GM JAR TP (21:22)
[2023-07-08 01:32] LABS: C Diff PCR Negative (Negative)
[2023-07-08 02:48] VITALS: BP 129/92; PULSE 82; RESP 16; TEMP 36.4; O2SAT 99
[2023-07-08 04:12] VITALS: BP 125/59; PULSE 80; RESP 16; TEMP 36.4; O2SAT 96
[2023-07-08] MEDS: Levothyroxine 100 MCG TAB PO (06:14)
[2023-07-08 07:09] LABS: Abs Immature Grans 0.04 10^3/uL (0.0-0.06); Absolute Basophil Count 0.04 10^3/uL (0.0-0.2); Absolute Eosinophil Count 0.46 10^3/uL (0.0-0.7); Absolute Lymphocyte Count 1.46 10^3/uL (1.2-3.4); Absolute Monocyte Count 0.58 10^3/uL (0.1-0.8); Absolute Neutrophil Count 5.14 10^3/uL (1.2-6.7); Basophils % 0.5; HCT 35.3 % (36.0-46.0); Immature Grans % 0.5; Lymphocytes % 18.9; MCH 28.2 pg (27.0-33.0); MCHC 31.2 % (32.0-36.0); MCV 91 fL (80-95); MPV 10.5 fL (8.0-11.0); Monocytes % 7.5; Neutrophils % 66.6; Platelet Count 215 10^3/uL (130-400); RDW-SD 53.4 fL; WBC 7.72 10^3/uL (4.4-10.8)
[2023-07-08 07:33] VITALS: BP 169/74; PULSE 83; RESP 18; TEMP 36.3; O2SAT 97
--- NOTE | 2023-07-08 08:02 | NUR.NOTE ---
Nursing Note: This nurse entered patients room, with help of another FEATHER SAWYER to get her on the bedpan, she agreed after she was on the bedpan she would be willing to take her morning medications. After she was settled with sheyla chao in her lap, this senior grant writer asked if she would take her meds now or wanted to wait. The patient responded I am not taking any meds unless the doctor gives them to me This senior grant writer made sure patient was safe with call chao in reach, bed at a safe, level, and left the room to notify the charge nurse at this time.
--- NOTE | 2023-07-08 08:29 | PDOC.CMPRO ---
Date of service: 07/08/23 Time of Service: 08:29 Care Management Progress Note Progress Note Text Progress Note Text: S/O:? Arlene was sitting up in a chair when CM met with her. CM asked if she had used the St[employer] Lift to get up and she said no, and pointed to her walker, indicating that she actually stood and transferred using the walker. Per PT, Arlene also took 2 steps today. She informed CM that she is starting to feel better. Her was visiting at the time and a discussion ensued about books and reading and other past times. Arlene smiled a few times and was more engaged than previously. The referral to [facility] was re-sent today and a referral was also sent to [facility], another [facility] facility in [place]. A:? Arlene is a 77 year old female admitted to [facility] on 07/04/23 for a UTI and weakness. P:? Arlene will likely remain at [facility] until she can safely be discharged home.? A referral is sent to [facility] for review.? An appointment is also made with CLAUDIA AlmanzaKitty, the Behavioral Health Specialist at patient's PCP's office, for Tuesday July 25, 2023 at 9:45 am.? CM will continue to follow.
--- NOTE | 2023-07-08 09:57 | NUR.NOTE ---
Nursing Note: This nurse attempted to assess patient at this time, pt stated I don't want to talk to you, you can't touch me Patient's was at bedside at this time, he stated this isn't normal for her she is so confused something is wrong THis nurse had a conversation with him about the night. Pt seems to have increased confusion at this time. Charge nurse aware of this situation.
[2023-07-08 11:25] LABS: Anion Gap 10.4 mmol/L (3-11); BUN 31 mg/dL (7-18); CO2 23.6 mmol/L (21.0-32.0); CREATININE 1.5 mg/dL (0.55-1.02); Calcium 9.8 mg/dL (8.5-10.1); Chloride 99 mmol/L (98-107); Estimated GFR 35.23 (mL/min/1.73m2); Glucose 223 mg/dL (74-106); Magnesium 2.2 mg/dL (1.8-2.4); Potassium 4.9 mmol/L (3.5-5.1); Sodium 133 mmol/L (136-145)
[2023-07-08 11:45] LABS: Source Nasal/Nares
[2023-07-08] MEDS: LORazepam 0.5 MG TAB PO ×2 (11:48→23:37)
[2023-07-08] MEDS: Insulin Aspart 300 UNITS/3 ML PEN SC ×2 (12:19→16:37)
[2023-07-08 12:21] LABS: COVID-19 PCR Negative (Negative)
--- NOTE | 2023-07-08 12:56 | PGE_ITS ---
Date of Service Date of service: 07/08/23 Time of Service: 12:56 Assessment and Plan Assessment and plan (1) Altered mental status: Status: Acute Assessment and plan: delirium thought to be d/t increased mirtazipine dose, has been reduced back to home dose urine culture pending hemodynamically stable with no fever or suspicion of untreated infection will try ativan 0.5 mg orally for symptoms. discussed with and patient who are in agreement, of note, patient was at baseline with no confusion, restlessness or hallucinations at time of my assessment. confirms she is at baseline later in afternoon, symptoms worsened and patient given seroquel. (2) Acute UTI: Status: Acute Assessment and plan: -presented with weakness and ambulatory dysfunction. -started on empiric Rocephin, now day 4 need to re-culture urine culture, samples continue to be contaminated, awaiting results of straight cath sample (3) Atrial fibrillation: Assessment and plan: -continue 100mg toprol-XL BID -rate controlled (4) Diabetes mellitus: Assessment and plan: will hold metformin as creatinine rising blood sugars well controlled today -continue sliding scale and glipizide Qualifiers: Diabetes mellitus medical assistant supervisor insulin use: without half-way use Diabetes mellitus type: type 2 (5) HTN (hypertension): Assessment and plan: blood pressure well controlled, will continue Lopressor and Lasix for now but if creatinine continues to rise, will stop lasix and consider another agent but avoid ÁNGEL or ARB due to renal effects creatinine improved today (6) Discharge planning issues: Status: Acute Assessment and plan: case management following PT consulted does not meet inpatient criteria, barriers to discharge are reluctance to work with PT and ambulate d/t fear of falling. consider psychiatric admission for medication management in elderly at risk for polypharmacy and increased fall risk d/t medication side effect. we did try increasing mirtazipine which may have contributed to her acute delirium discussed with Dr Orellana Subjective Subjective Patient reports: tolerating liquids well and tolerating a regular diet Interval history since last seen: having visual hallucinations overnight, reported as very talkative, Exam Const General: cooperative, comfortable and no acute distress Resp Effort & Inspection: normal respiratory effort Auscultation: clear to auscultation bilaterally Cardio Rate: regular rate Rhythm: abnormal rhythm irregularly irregular GI Inspection: normal to inspection Palpation: soft and nontender Auscultation: normal bowel sounds Skin General skin exam: no rashes or lesions noted Neuro General: patient alert, patient awake and patient oriented x3 Cognition: normal cognition Speech: speech normal Psych Appearance: grossly normal Mental Status: mental status grossly normal Speech and Movement: speech and movement normal Mood: congruent mood Affect: normal affect Attitude: cooperative Thought Process: normal Objective Last Vital Signs Temp 36.3 C L 07/08/23 07:33 Pulse 83 07/08/23 07:33 Resp 18 07/08/23 07:33 BP 169/74 H 07/08/23 07:33 Pulse Ox 97 07/08/23 07:33 Laboratory Results - last 24 hr 07/07/23 07/08/23 07/08/23 13:29 00:02 05:55 WBC 7.72 RBC 3.90 L Hgb 11.0 L D Hct 35.3 L MCV 91 MCH 28.2 MCHC 31.2 L RDW 16.0 H Plt Count 215 MPV 10.5 Immature Gran % 0.5 Neutrophils % 66.6 Lymphocytes % 18.9 Monocytes % 7.5 Eosinophils % 6.0 Basophils % 0.5 Nucleated RBC % 0.0 Absolute Neutrophils 5.14 Absolute Lymphocytes 1.46 Absolute Monocytes 0.58 Absolute Eosinophils 0.46 Absolute Basophils 0.04 Sodium Potassium Chloride Carbon Dioxide Anion Gap BUN Creatinine Est GFR (CKD-EPI 2020) Glucose Calcium Magnesium Urine Color Yellow Urine Clarity Sl Cloudy Urine pH 5.5 Ur Specific [place] 1.020 Urine Protein Negative Urine Ketones Negative Urine Blood Negative Urine Nitrite Negative Urine Bilirubin Negative Urine Urobilinogen 0.2 Ur Leukocyte Esterase Small H Urine RBC Negative Urine WBC 10-20 H Ur Epithelial Cells Few Urine Crystals Negative Urine Bacteria Rare Urine Casts 0-2 Hyaline Urine Mucus Trace Ur Culture Indicated? Yes Urine Glucose Negative Stl C.difficile Tox PCR Negative COVID-19 Source 07/08/23 07/08/23 11:05 11:36 WBC RBC Hgb Hct MCV MCH MCHC RDW Plt Count MPV Immature Gran % Neutrophils % Lymphocytes % Monocytes % Eosinophils % Basophils % Nucleated RBC % Absolute Neutrophils Absolute Lymphocytes Absolute Monocytes Absolute Eosinophils Absolute Basophils Sodium 133 L Potassium 4.9 Chloride 99 Carbon Dioxide 23.6 Anion Gap 10.4 BUN 31 H Creatinine 1.5 H Est GFR (CKD-EPI 2020) 35.23 Glucose 223 H Calcium 9.8 Magnesium 2.2 Urine Color Urine Clarity Urine pH Ur Specific [place] Urine Protein Urine Ketones Urine Blood Urine Nitrite Urine Bilirubin Urine Urobilinogen Ur Leukocyte Esterase Urine RBC Urine WBC Ur Epithelial Cells Urine Crystals Urine Bacteria Urine Casts Urine Mucus Ur Culture Indicated? Urine Glucose Stl C.difficile Tox PCR COVID-19 Source Nasal/Nares Time Spent with Patient Time Spent with Patient: 35-49 minutes Time was spent: preparing to see the patient(eg.review tests), obtaining and/or reviewing separately otained hiistory, ordering medications,tests, procedures, indepentently interpreting results, counseling the patient and care coordination
--- NOTE | 2023-07-08 13:45 | RT.EKG_ITS ---
APPROVED REPORT Exam: Resting ECG Reason for Exam: qt interval Patient Location: I HR:78 bpm ECG Measurements Heart Rate 78 AXIS CA 172 P 50 QRSd 82 QRS 9 QT 392 T 60 QTc 447 Conclusion Sinus rhythm...normal P axis, V-rate 50- 99 Normal Electrocardiogram
--- NOTE | 2023-07-08 14:19 | PT.INTREAT ---
PT Notes Visit Reasons: UTI, weakness Inpatient Physical Therapy Treatment Note [facility] Date: 07/08/23 SUBJECTIVE: Arlene states that she is still fearful of falling. She is agreeable to work with PT, however anxious. OBJECTIVE: []? Therapeutic Activities ([id number]): Direct one-on-one instruction in dynamic activities to improve functional performance. ? BED MOBILITY/TRANSFERS? Rolling L/R: S Supine-sit:SBA? Sit-stand: CGA of 2. More for encouragement due to her anxiety? Stand-sit: SBA ? Bed-Chair:CGA of 2 ? Provided skilled cues and instruction on performance and technique throughout. GAIT? Assistive Device:FWW? Weight bearing: AT Assist:CGA of 2? Distance:? approx 3 steps? Therapeutic Exercises (69155x1): Direct one-on-one instruction in therapeutic exercises to develop strength, endurance, range of motion and flexibility. ? Exercises bridging x8 SLR, hip abd, heel slides and marching x10 ea. LAQ x10, AP x10. ASSESSMENT:? tolerated session fair. Very fearful of falling. Needs lots of encouragement to not to give up She is strong enough, and not letting her quit. I did take several attempts but one she made up her mind she was going to go for it, she did very well. CGA for emotional/mental support. PLAN: Will continue to work on her strength and endurance improving her functional mobility. TREATMENT CODE/TIME: 22 min ([id number], [id number])
[2023-07-08] MEDS: QUEtiapine 25 MG TAB PO (14:50)
--- NOTE | 2023-07-08 15:05 | PT.INTREAT ---
Date of service: 07/08/23 Time of Service: 14:45 PT Notes Visit Reasons: UTI, weakness Inpatient Physical Therapy Treatment Note [facility] Date: 07/08/23 PRECAUTIONS: Fall, standard, activity as tolerated SUBJECTIVE: Patient reports wanting to go over there, indicates the corner of the room where the computer is. States she wants to go to the tables and that they should start cooking soon. OBJECTIVE: Patient very confused, oriented to self only. Supine in bed, has slid down until feet are touching footboard. ? PAIN: none reported VITALS: monitored by nursing staff ? Therapeutic Activities ([id number]): Direct one-on-one instruction in dynamic activities to improve functional performance. ? BED MOBILITY/TRANSFERS? Rolling L/R: min assist with max verbal cueing Supine-sit: unable to asses? Sit-supine: unable to asses ? Sit-stand: unable to asses ? Stand-sit: unable to asses ? Bed-Chair: unable to asses ? Chair-bed: unable to asses Patient eventually agreeable to scoot up in bed. With max verbal and tactile cueing, patient bends knees, performs partial bridge x3. Max assist to scoot up in bed. Provided skilled cues and instruction on performance and technique throughout. ? ASSESSMENT:? Patient participates to the best of her ability. Perseverates on where her is and when he's coming back. Wants to be able to see the folks she believes are sitting around tables just behind her. There are no other people in the room. PLAN: Continue global strengthening to patient's tolerance and ability. TREATMENT CODE/TIME: 15 minutes beginning at 14:45
[2023-07-08 15:17] VITALS: BP 136/62; PULSE 77; RESP 18; TEMP 36.5; O2SAT 98
[2023-07-08] MEDS: glipiZIDE 10 MG TAB PO (16:17)
[2023-07-08] MEDS: Simvastatin 20 MG TAB PO (21:37)
[2023-07-08] MEDS: Mirtazapine 15 MG TAB 7.5 MG PO (21:37)
[2023-07-08] MEDS: Metoprolol CR 100 MG TABCR PO (21:38)
[2023-07-08] MEDS: Nystatin POWDER 15 GM JAR TP (21:38)
[2023-07-08] MEDS: Melatonin 3 MG TAB 6 MG PO (21:38)
[2023-07-08] MEDS: cefTRIAXone 1 GM/50 ML BAG IV (21:39)
[2023-07-08] MEDS: Normal Saline Flush 10 ML SYR IVP (21:39)
[2023-07-08 23:00] VITALS: BP 125/77; PULSE 77; RESP 16; TEMP 36.5; O2SAT 97
[2023-07-09] MEDS: glipiZIDE 10 MG TAB PO ×2 (07:28→15:55)
[2023-07-09] MEDS: Furosemide 20 MG TAB PO (07:28)
[2023-07-09] MEDS: Ferrous Gluconate 324 MG TAB PO (07:28)
[2023-07-09] MEDS: LORazepam 0.5 MG TAB PO ×2 (07:29→21:05)
[2023-07-09] MEDS: Citalopram 20 MG TAB PO (07:29)
[2023-07-09] MEDS: Levothyroxine 100 MCG TAB PO (07:29)
[2023-07-09] MEDS: Metoprolol CR 100 MG TABCR PO ×2 (07:30→21:05)
[2023-07-09] MEDS: Nystatin POWDER 15 GM JAR TP ×2 (07:33→21:06)
[2023-07-09 07:38] VITALS: BP 137/68; PULSE 75; RESP 18; TEMP 36.4; O2SAT 100
[2023-07-09] MEDS: Insulin Aspart 300 UNITS/3 ML PEN SC ×4 (08:27→21:06)
--- NOTE | 2023-07-09 10:15 | PT.INTREAT ---
PT Notes Visit Reasons: UTI, weakness Inpatient Physical Therapy Treatment Note [facility] Date: 07/09/23 SUBJECTIVE: I didn't realize that I have been in the hospital. I thought I was at a resort or club of some sort. OBJECTIVE: []? Therapeutic Activities (96005n0): Direct one-on-one instruction in dynamic activities to improve functional performance. ? pt was already sitting in recliner.? ? BED MOBILITY/TRANSFERS? Sit-stand: Min/mod A of 1 ? Stand-sit: CGA? Provided skilled cues and instruction on performance and technique throughout. Proper hand placement on arms of chair. ? Therapeutic Exercises (05247v2): Direct one-on-one instruction in therapeutic exercises to develop strength, endurance, range of motion and flexibility. ? Exercises performed a series of global LE strengthening ex including Sitting SAQ, AP, SLR, hip ab/add, LAQ and marching. Also performed 5 chair pushups with min A. ? Provided skilled instruction in proper exercise performance ASSESSMENT:?tolerated session fair. Grew increasing confused as session went on. She kept looking behind her stating she felt like there are people behind me talking. She was not as focused today compared to yesterday. PLAN: will continue to work on her strengthening and improving functional mobility. TREATMENT CODE/TIME: 25 min from 934-10. ([id number])
--- NOTE | 2023-07-09 14:25 | PGE_ITS ---
Date of Service Date of service: 07/09/23 Time of Service: 14:25 Assessment and Plan Assessment and plan (1) Altered mental status: Status: Acute Assessment and plan: delirium thought to be d/t increased mirtazipine dose, has been reduced back to home dose and now improving urine culture with no growth hemodynamically stable with no fever or suspicion of untreated infection continue ativan orally for symptoms. continue safety precautions (2) Tkner-fu-hjpokhb kidney injury: Status: Acute Assessment and plan: creatinine improved to 1.5 from 1.9 after metformin placed on hold. avoid nephrotoxic drugs, renal dose as needed. continue to monitor. (3) Acute UTI: Status: Acute Assessment and plan: -presented with weakness and ambulatory dysfunction. -complete empiric Rocephin, now day 02/18 (4) Atrial fibrillation: Assessment and plan: -continue 100mg toprol-XL BID -rate controlled (5) Diabetes mellitus: Assessment and plan: continue to hold metformin as creatinine was rising. now improved. blood sugars well controlled today -continue sliding scale and glipizide Qualifiers: Diabetes mellitus custodial insulin use: without extermination inspector use Diabetes mellitus type: type 2 (6) HTN (hypertension): Assessment and plan: blood pressure well controlled, will continue Lopressor and Lasix for now but if creatinine continues to rise, will stop lasix and consider another agent but avoid ÁNGEL or ARB due to renal effects creatinine improved today (7) Discharge planning issues: Status: Acute Assessment and plan: case management following PT consulted does not meet inpatient criteria, barriers to discharge are reluctance to work with PT and ambulate d/t fear of falling. consider psychiatric admission for medication management in elderly at risk for polypharmacy and increased fall risk d/t medication side effect. Patient was admitted under observation status and with multiple falls at home so initially was not placed on DVT prophylaxis but now that she is in the acute care status and she has not fallen while hospitalized we will initiate DVT prophylaxis. discussed with Dr Orellana Subjective Subjective Patient reports: afebrile; denies nausea or shortness of breath Interval history since last seen: did require ativan overnight, less confusion today but still having some auditory hallucinations while working with PT (hearing voices behind her and no one was there). eating and drinking well Exam Const General: cooperative, comfortable and no acute distress Resp Effort & Inspection: normal respiratory effort Auscultation: clear to auscultation bilaterally Cardio Rate: regular rate Rhythm: abnormal rhythm irregularly irregular GI Inspection: normal to inspection Palpation: soft and nontender Auscultation: normal bowel sounds Skin General skin exam: no rashes or lesions noted Neuro General: patient alert and patient awake Speech: speech normal Psych Appearance: grossly normal Speech and Movement: speech and movement normal Mood: congruent mood Affect: normal affect Attitude: cooperative Thought Content: hallucinations auditory Insight: poor Judgment: poor Objective Last Vital Signs Temp 36.4 C L 07/09/23 07:38 Pulse 75 07/09/23 07:38 Resp 18 07/09/23 07:38 BP 137/68 07/09/23 07:38 Pulse Ox 100 07/09/23 07:38 Time Spent with Patient Time Spent with Patient: 25-34 minutes Time was spent: preparing to see the patient(eg.review tests), obtaining and/or reviewing separately otained hiistory, ordering medications,tests, procedures, indepentently interpreting results, counseling the patient and care coordination
[2023-07-09 15:29] VITALS: BP 139/64; PULSE 74; RESP 18; TEMP 36.4; O2SAT 100
[2023-07-09] MEDS: Enoxaparin 40 MG/0.4 ML SYR SC (15:54)
[2023-07-09 20:15] VITALS: BP 128/55; PULSE 79; RESP 18; TEMP 36.1; O2SAT 99
[2023-07-09] MEDS: Mirtazapine 15 MG TAB 7.5 MG PO (21:05)
[2023-07-09] MEDS: Melatonin 3 MG TAB 6 MG PO (21:05)
[2023-07-09] MEDS: Simvastatin 20 MG TAB PO (21:05)
[2023-07-10 01:34] VITALS: O2SAT 99
[2023-07-10] MEDS: Levothyroxine 100 MCG TAB PO (06:39)
[2023-07-10 07:35] VITALS: BP 152/70; PULSE 72; TEMP 36.1; O2SAT 100
[2023-07-10] MEDS: Insulin Aspart 300 UNITS/3 ML PEN SC ×3 (07:43→16:37)
[2023-07-10] MEDS: LORazepam 0.5 MG TAB PO ×2 (07:43→20:47)
[2023-07-10] MEDS: glipiZIDE 10 MG TAB PO ×2 (07:44→15:49)
[2023-07-10] MEDS: Enoxaparin 40 MG/0.4 ML SYR SC (07:44)
[2023-07-10] MEDS: Furosemide 20 MG TAB PO (07:44)
[2023-07-10] MEDS: Ferrous Gluconate 324 MG TAB PO (07:44)
[2023-07-10] MEDS: Citalopram 20 MG TAB PO (07:44)
[2023-07-10] MEDS: Metoprolol CR 100 MG TABCR PO ×2 (07:44→20:48)
[2023-07-10] MEDS: Nystatin POWDER 15 GM JAR TP ×2 (07:49→22:53)
--- NOTE | 2023-07-10 10:35 | CMPROGNOTE_ITS ---
Date of service: 07/10/23 Time of Service: 10:35 Care Management Progress Note Progress Note Text Progress Note Text: S/O: Arlene's status is changed to inpatient and she is initiated on DVT prophylaxis. Arlene is improving but continues to require physical therapy. Her mental status is back to baseline today. Arlene is sitting in a chair when CM comes to see her. Her is present in the room. Arlene readily engages in the discussion about her plan. While she is looking forward to returning home, and wants to go to [employer] to purchase items to decorate her home for [employer], she acknowledges that she needs to get stronger and needs to be able to ambulate better before she can go home. We spend some time discussing short term rehab and Arlene is agreeable to going to the [facility]. CM coordinates a referral to the facility for review. A: Arlene is a 77 year old female admitted to [facility] on 07/04/23 for a UTI and weakness. P: Arlene will either return home with a resumption of HH PT vs. going to rehab for strengthening prior to returning home. She will follow up with her PCP and plan of care as instructed. Transportation will be determined by disposition. If Arlene returns home, she will be transported by her via private vehicle. CM will continue to support Arlene, her family and any discharge planning needs.
--- NOTE | 2023-07-10 12:24 | PT.INTREAT ---
PT Notes Visit Reasons: UTI, weakness Inpatient Physical Therapy Treatment Note [facility] Date: 07/10/23 SUBJECTIVE: Arlene states that she willing to work with PT. Would like to walk to commode first. OBJECTIVE: []? Therapeutic Activities ([id number]): Direct one-on-one instruction in dynamic activities to improve functional performance. ? BED MOBILITY/TRANSFERS? Rolling L/R: S Supine-sit:SBA? Sit-stand:min A of 1 ? Stand-sit: SBA ? Bed-Chair:CGA x1 with 2nd person close by? Provided skilled cues and instruction on performance and technique throughout. GAIT? Assistive Device:FWW? Weight bearing: AT Assist:CGA of 1? Distance:? approx 3' to commode and approx 20' in room? Therapeutic Exercises (05134v7): Direct one-on-one instruction in therapeutic exercises to develop strength, endurance, range of motion and flexibility. ? Exercises bridging x10 SLR x10. Sitting: hip abd, heel slides, marching and LAQ x10, AP x10. ASSESSMENT:? Improvements with her strength and confidence while on her feet. Needing less encouragement. PLAN: Will continue to work on her strength and endurance improving her functional mobility. TREATMENT CODE/TIME: 25 min from [id number] ([id number], [id number])
--- NOTE | 2023-07-10 14:11 | PGE_ITS ---
Date of Service Date of service: 07/10/23 Time of Service: 14:12 Assessment and Plan Assessment and plan (1) Altered mental status: Status: Acute Assessment and plan: delirium thought to be d/t increased mirtazipine dose, has been reduced back to home dose and now about at baseline urine culture with no growth hemodynamically stable with no fever or suspicion of untreated infection continue ativan orally for symptoms. continue safety precautions (2) Bdiom-ra-ndgdvrf kidney injury: Status: Acute Assessment and plan: continue to hold metformin avoid nephrotoxic drugs, renal dose as needed. continue to monitor. (3) Acute UTI: Status: Resolved Assessment and plan: -presented with weakness and ambulatory dysfunction. -complete empiric Rocephin, now day 02/18 (4) Atrial fibrillation: Assessment and plan: -continue 100mg toprol-XL BID -rate controlled (5) Diabetes mellitus: Assessment and plan: continue to hold metformin as creatinine was rising. now improved. blood sugars well controlled today -continue sliding scale and glipizide Qualifiers: Diabetes mellitus type: type 2 Diabetes mellitus assisted insulin use: without buttermaker continuous churn use (6) HTN (hypertension): Assessment and plan: blood pressure well controlled, will continue Lopressor and Lasix for now but if creatinine continues to rise, will stop lasix and consider another agent but avoid ÁNGEL or ARB due to renal effects creatinine improved today (7) Discharge planning issues: Status: Acute Assessment and plan: case management following PT consulted discussed with Dr Orellana Subjective Subjective Patient reports: no new complaints, feels better, tolerating liquids well, tolerating a regular diet, voiding w/o difficulty and afebrile; denies shortness of breath Interval history since last seen: symptoms of confusion and hallucinations markedly improved. Exam Const General: cooperative, comfortable and no acute distress Orientation: alert, awake, oriented to person and oriented to place Resp Effort & Inspection: normal respiratory effort Auscultation: clear to auscultation bilaterally Cardio Rate: regular rate Rhythm: abnormal rhythm irregularly irregular GI Inspection: normal to inspection Palpation: soft and nontender Auscultation: normal bowel sounds Skin General skin exam: no rashes or lesions noted Neuro General: patient alert and patient awake Speech: speech normal Psych Appearance: grossly normal Speech and Movement: speech and movement normal Mood: congruent mood Affect: normal affect Attitude: cooperative Objective Last Vital Signs Temp 36.1 C L 07/10/23 07:35 Pulse 72 07/10/23 07:35 Resp 18 07/09/23 20:15 BP 152/70 H 07/10/23 07:35 Pulse Ox 100 07/10/23 07:35 Time Spent with Patient Time Spent with Patient: 35-49 minutes Time was spent: preparing to see the patient(eg.review tests), obtaining and/or reviewing separately otained hiistory, ordering medications,tests, procedures, referring, communicating with other health doggy daycare activities director, indepentently interpreting results, counseling the patient and care coordination
[2023-07-10 15:07] VITALS: BP 121/77; PULSE 72; TEMP 35.8; O2SAT 99
[2023-07-10] MEDS: Mirtazapine 15 MG TAB 7.5 MG PO (20:48)
[2023-07-10] MEDS: Melatonin 3 MG TAB 6 MG PO (20:48)
[2023-07-10] MEDS: Normal Saline Flush 10 ML SYR IVP (20:48)
[2023-07-10] MEDS: Simvastatin 20 MG TAB PO (20:48)
[2023-07-10 23:46] VITALS: BP 116/69; PULSE 73; RESP 18; TEMP 36.4; O2SAT 98
[2023-07-11] MEDS: LORazepam 0.5 MG TAB PO ×2 (03:15→23:05)
[2023-07-11] MEDS: Levothyroxine 100 MCG TAB PO (06:20)
[2023-07-11 09:00] VITALS: BP 160/77; PULSE 76; RESP 18; TEMP 35.4; O2SAT 97
[2023-07-11] MEDS: Citalopram 20 MG TAB PO (09:05)
[2023-07-11] MEDS: glipiZIDE 10 MG TAB PO ×2 (09:05→17:11)
[2023-07-11] MEDS: Furosemide 20 MG TAB PO (09:05)
[2023-07-11] MEDS: Metoprolol CR 100 MG TABCR PO ×2 (09:05→20:45)
[2023-07-11] MEDS: Enoxaparin 40 MG/0.4 ML SYR SC (09:06)
[2023-07-11] MEDS: Ferrous Gluconate 324 MG TAB PO (09:06)
[2023-07-11] MEDS: Insulin Aspart 300 UNITS/3 ML PEN SC ×3 (09:10→17:11)
[2023-07-11] MEDS: Nystatin POWDER 15 GM JAR TP ×2 (09:13→20:48)
--- NOTE | 2023-07-11 13:30 | CMPROGNOTE_ITS ---
Date of service: 07/11/23 Time of Service: 13:30 Care Management Progress Note Progress Note Text Progress Note Text: S/O: Arlene was lying in bed when CM met with her. She stated that she is doing ok today. CM reviewed her discharge plan, as she has a pending referral at [facility]; she is agreeable to going for short term rehab if a bed offer is made. Later, CM received a bed offer from [facility], which she accepted. She may be ready for discharge as early as tomorrow, per provider. CM will continue to follow. A:? Arlene is a 77 year old female admitted to [facility] on 07/04/23 for a UTI and weakness.? P: Arlene will either return home with a resumption of HH PT vs. going to rehab for strengthening prior to returning home.? She will follow up with her PCP and plan of care as instructed.? Transportation will be determined by disposition.? If Arlene returns home, she will be transported by her via private vehicle.? CM will continue to support Arlene, her family and any discharge planning needs.?
--- NOTE | 2023-07-11 14:50 | PGE_ITS ---
Date of Service Date of service: 07/11/23 Time of Service: 14:50 Assessment and Plan Assessment and plan (1) Altered mental status: Status: Resolved Assessment and plan: symptoms resolved and delirium thought to be d/t increased mirtazipine dose, has been reduced back to home dose and now at baseline (2) Zohgr-zw-hhlytgw kidney injury: Status: Acute Assessment and plan: continue to hold metformin avoid nephrotoxic drugs, renal dose as needed. continue to monitor. 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 intermodal owner operator truck driver use Diabetes mellitus type: type 2 (5) HTN (hypertension): Assessment and plan: blood pressure well controlled, will continue Lopressor and Lasix for now but if creatinine continues to rise, will stop lasix and consider another agent but avoid ÁNGEL or ARB due to renal effects creatinine improved today (6) Discharge planning issues: Status: Acute Assessment and plan: case management following PT consulted referrals placed for [facility] and rehab discussed with Dr Yu Subjective Subjective Patient reports: no new complaints, feels better, tolerating liquids well, tolerating a regular diet and afebrile; denies shortness of breath Interval history since last seen: no further confusion or hallucinations Exam Const General: cooperative, comfortable and no acute distress Orientation: alert, awake, oriented to person and oriented to place Resp Effort & Inspection: normal respiratory effort Auscultation: clear to auscultation bilaterally Cardio Rate: regular rate Rhythm: abnormal rhythm irregularly irregular GI Inspection: normal to inspection Palpation: soft and nontender Auscultation: normal bowel sounds Skin General skin exam: no rashes or lesions noted Neuro General: patient alert and patient awake Speech: speech normal Psych Appearance: grossly normal Speech and Movement: speech and movement normal Mood: congruent mood Affect: normal affect Attitude: cooperative Objective Last Vital Signs Temp 35.4 C L 07/11/23 09:00 Pulse 76 07/11/23 09:00 Resp 18 07/11/23 09:00 BP 160/77 H 07/11/23 09:00 Pulse Ox 97 07/11/23 09:00 Time Spent with Patient Time Spent with Patient: 25-34 minutes Time was spent: preparing to see the patient(eg.review tests), obtaining and/or reviewing separately otained hiistory, ordering medications,tests, procedures, indepentently interpreting results and counseling the patient
[2023-07-11 15:17] VITALS: BP 114/66; PULSE 75; RESP 18; TEMP 36.4; O2SAT 99
--- NOTE | 2023-07-11 17:01 | PT.INTREAT ---
Date of service: 07/11/23 Time of Service: 16:04 PT Notes Visit Reasons: UTI, weakness Inpatient Physical Therapy Treatment Note [facility] Date: 07/11/23 PRECAUTIONS: Fall, standard, activity as tolerated SUBJECTIVE: Patient reports feeling fatigued. Patient appears much more alert and oriented than she was the last time this therapist saw her on 07/08. OBJECTIVE: Supine in bed, agreeable to therapy ? PAIN: none reported VITALS: monitored by nursing staff ? ? BED MOBILITY/TRANSFERS? Rolling L/R: independent Supine-sit: min assist of 1 by hand hold ? Sit-supine: min assist of 1 to lift feet clear of the edge of the bed - patient got both feet to within 3 inches of the lip of the bed. ?Sit-stand: min assist of 1 from high bed, mod assist of 1 from wheelchair lifting patient by gait belt, with verbal cues to push up from the sitting surface (bed or wheelchair) and not try to pull up with the walker? Stand-sit: CGA with verbal cues to reach back to ensure safe sitting, facilitation of hip hinging to slow descent and land far enough back. ?Bed-Chair: CGA ? Chair-bed: CGA Provided skilled cues and instruction on performance and technique throughout. Gait Training ([id number]): Direct one-on-one instruction and skilled instruction in: [] employing an assistive device [] modified weight-bearing status [] movement sequencing [x] turning and movement with proper form [x] Provided verbal cues for equipment management and technique [] Provided instruction in gait pattern [] Patient education regarding pacing and breathing techniques to maximize activity tolerance? GAIT? Assistive Device: FWW ? Weight bearing: full Assist: CGA ? Distance:? 10 feet, seated rest, 12 feet, seated rest, 50 feet. ? Deviation: decreased step height, decreased step length, decreased rodolfo, lateral trunk lurch noted more to the right than the left. Once turned around and headed back towards her room, patient demonstrated increased stride length, increased rodolfo, decreased trunk lurch, apparent increased confidence. ? ASSESSMENT:? Patient opted to return to bed at the end of treatment session, reported significant fatigue but also reported feeling accomplished. PLAN: Continue global strengthening and activity tolerance training until patient is medically cleared for discharge. TREATMENT CODE/TIME: 22 minutes beginning at 16:04
[2023-07-11] MEDS: metFORMIN 500 MG TAB PO (17:11)
[2023-07-11] MEDS: Mirtazapine 15 MG TAB 7.5 MG PO (20:44)
[2023-07-11] MEDS: Melatonin 3 MG TAB 6 MG PO (20:44)
[2023-07-11] MEDS: Simvastatin 20 MG TAB PO (20:45)
[2023-07-12 03:13] VITALS: BP 161/78; PULSE 71; RESP 16; TEMP 36.1; O2SAT 99
[2023-07-12] MEDS: Levothyroxine 100 MCG TAB PO (05:42)
[2023-07-12 07:25] VITALS: BP 139/77; PULSE 67; TEMP 36.2; O2SAT 98
[2023-07-12] MEDS: Enoxaparin 40 MG/0.4 ML SYR SC (07:54)
[2023-07-12] MEDS: Normal Saline Flush 10 ML SYR IVP (07:54)
[2023-07-12] MEDS: Citalopram 20 MG TAB PO (07:55)
[2023-07-12] MEDS: Furosemide 20 MG TAB PO (07:55)
[2023-07-12] MEDS: Metoprolol CR 100 MG TABCR PO (07:55)
[2023-07-12] MEDS: glipiZIDE 10 MG TAB PO (07:55)
[2023-07-12] MEDS: metFORMIN 500 MG TAB PO (07:55)
[2023-07-12] MEDS: Ferrous Gluconate 324 MG TAB PO (07:55)
[2023-07-12] MEDS: Insulin Aspart 300 UNITS/3 ML PEN SC ×2 (08:05→11:51)
[2023-07-12] MEDS: Nystatin POWDER 15 GM JAR TP (10:09)
--- NOTE | 2023-07-12 10:25 | W.PM.DS.N ---
Date of service: 07/12/23 Time of Service: 10:26 DS: Diagnosis Discharge Diagnosis (1) Altered mental status: Status: Resolved Asessment and Plan: May have been combination of delirium and an increase in mirtazipine dose. Now resolved with reduction of mirtazipine dose (2) Spsyc-ae-lsofzgq kidney injury: Status: Acute Asessment and Plan: Initially held metformin and lisinopril leading to resolution of NICOLE. Lisinopril disconttinued and metforin restarted with stable Cr (3) Atrial fibrillation: (4) Diabetes mellitus: Asessment and Plan: Missed doses of metformin and glipizide on day of admission, but continued to have elevated blood glucose levels. Will be discharged on home metformin and glipizide, as well as moderate sliding scale insulin (5) HTN (hypertension): Discharge Plan Disposition Patient Disposition: Alf Facility(SNF) Condition: Stable Discharge Details Reason For Visit: UTI, weakness Admit Date/Time: 07/09/23 14:34 Admit Provider: Cole Meraz Attending Provider: Cole Meraz Primary Care Provider: Geovanna Anders Hospital Course Hospital Course: Patient initially presented with recent increase in falls and was found to be unsafe to ambulate without assistance. Additionally, she was found to have acute on chronic kidney injury for which her lisinopril was discontinued and her BPs remained stable on PO lasix. Her blood sugars was also difficult to control despite restarting her home metformin and glipizide, and she was started on sliding scale insulin. Otherwise the patient made good pregress with PT and was determined to be ready for discharge to [facility]. Home Meds and New Rx's Prescriptions: New furosemide 20 mg Tablet 20 mg PO DAILY Qty: 60 1RF ferrous gluconate 324 mg (38 mg iron) Tablet 324 mg PO DAILY Qty: 60 1RF insulin aspart U-100 100 unit/mL (3 mL) insulin pen See Rx Instructions .ROUTE .COMPLEX Qty: 15 3RF Rx Instructions: Use standard moderate SSI protocol Continued levothyroxine 100 mcg capsule 100 mcg PO DAILY citalopram 20 mg tablet 20 mg PO DAILY mirtazapine 7.5 mg tablet 1 tab PO HS Patient Comments: Take 1 tablet by mouth every night metoprolol succinate 100 mg Tablet Extended Release 24 Hr 100 mg PO BID Qty: 0 0RF glipizide 10 mg Tablet 10 mg PO BID simvastatin 20 mg tablet 20 mg PO HS metformin 500 mg tablet extended release 24hr 500 mg PO BID Hold Instructions: Resume on 07/17/23. Do not resume until advised by your PCP Patient Comments: Take 1 tablet by mouth twice a day acetaminophen 325 mg Tablet 650 mg PO Q6H PRN PRNQty: 30 0RF Discontinued lisinopril 10 mg tablet 10 mg PO DAILY Hold Instructions: Resume on 07/17/23. Do not resume until advised by your PCP ferrous gluconate 324 mg (38 mg iron) Tablet 27 mg PO DAILY furosemide 20 mg tablet 20 mg PO DAILY Patient Comments: TAKE ONE TABLET BY MOUTH ONCE DAILY NEEDED FOR SWELLING Discharge Instructions Instructions: Insulin Aspart Protamine/Insulin Aspart (By injection), Weakness (GEN), Urinary Tract Infection in Older Adults (DC), Diabetes and Nutrition (DC), Diabetes and Exercise (GEN) Stand Alone Forms: Nursing Discharge Form Activity:: Activity as Tolerated Equipment/Supplies:: Blood Glucose Monitor Diet:: Carb Counting Discharge Orders Discharge Orders: Discharge Order (Routine); Ordered 07/12/23 Ordered By: Geoffrey Foster DS: Summary Time Spent with Patient providing and/or coordinating discharge services: Greater than 30 minutes Status at Discharge Functional status at discharge: uses cane/walker Overall status at discharge: patient is not back to baseline Mental Status: mental status grossly normal Speech and Movement: speech and movement normal Mood: congruent mood Affect: normal affect Exam Const General: cooperative, comfortable and no acute distress HENMT Head: normal to inspection, normocephalic and atraumatic Ears: hearing grossly normal bilaterally Resp Effort & Inspection: normal respiratory effort, able to speak in complete sentences and no cough Auscultation: clear to auscultation bilaterally, no rhonchi and no wheezes Cardio Jugular venous pressure: no JVD Rate: regular rate Rhythm: regular rhythm Heart Sounds: S1 normal, S2 normal, no gallops, no murmurs and no rubs GI Inspection: normal to inspection Palpation: soft, no guarding and nontender Percussion: normal to percussion Auscultation: normal bowel sounds Skin Lesions: no lesions Rashes: no rashes Trauma: no lacerations or abrasions Neuro General: patient alert, patient awake and patient oriented x3 Cranial Nerves: CN's II-XI intact bilaterally Cognition: normal cognition Speech: speech normal Motor: muscle tone normal throughout and strength 5/5 throughout Sensory Exam: no sensory deficits noted Psych Appearance: grossly normal Mental Status: mental status grossly normal Speech and Movement: speech and movement normal Mood: congruent mood Affect: normal affect Attitude: cooperative Thought Process: normal Thought Content: normal Insight: insight good Judgment: judgment good DS: Data Vitals/I&O Vitals and I&O: Vital Signs Temperature 97.2 F L 07/12/23 07:25 Temperature Source Tympanic 07/12/23 07:25 Pulse 67 07/12/23 07:25 Pulse Rhythm Regular 07/12/23 01:20 Pulse 87 07/04/23 17:20 Respiratory Rate 16 07/12/23 03:13 Respiratory Effort Normal, Non-Labored 07/12/23 01:20 Respiratory Depth Normal 07/12/23 01:20 Respiratory Pattern Normal 07/12/23 01:20 Blood Pressure 139/77 07/12/23 07:25 Blood Pressure Mean 111 07/04/23 17:02 Blood Pressure Position Sitting 07/04/23 08:21 Pulse Oximetry 98 07/12/23 07:25 Oxygen Delivery Method Room Air 07/12/23 07:25 Oxygen Flow Rate 0 07/12/23 07:25 Pain Level 0 07/12/23 07:53 Comment Pt. denies pain at this time. 07/12/23 07:53 Intake & Output 07/11/23 07/12/23 07/12/23 17:59 05:59 17:59 Intake Total 240 / 240 240 / 480 Output Total 500 / 500 300 / 800 350 / 350 Balance -260 / -260 -60 / -320 -350 / -350 Intake: Oral 240 / 240 240 / 480 Output: Urine 500 / 500 300 / 800 350 / 350 Other: Urine Color Yellow Yellow Yellow Urine Appearance Clear Clear Clear Urine Odor None Normal Normal Comment Void x1 in the bedside commode. Stool Size Moderate Large Stool Characteristics Liquid Soft Brown Voiding Methods Bedside Commode Bedside Commode Bedside Commode [facility] All Active Problems Ocruo-uy-sasaeoy kidney injury (Acute) Discharge planning issues (Acute) Hx of falling (Acute) Acute pain of right hip (Acute) Medical History Abnormal finding on breast imaging Acute CHF Acute dyspnea Acute pain of right hip Acute UTI Anemia Atrial fibrillation Atrial fibrillation with RVR Related hg 5.7, isolated Breast cancer CHF (congestive heart failure) related to Hg 5.7. Resolved. Nl echo Diabetes mellitus DVT prophylaxis Glaucoma Goiter HTN (hypertension) Hypercholesterolemia Leucocytosis Osteopenia Pleural effusion Squamous cell cancer of scalp and skin of neck Trochanteric bursitis Surgical History S/P breast lumpectomy S/P skin and subcutaneous tissue surgery Social History Smoking/Tobacco Use Status: Never Smoking risk assessment performed?: Yes Alcohol Intake: never Drug use: Never Substance use type: does not use Housing: house Do you feel safe at home: Yes Do you feel safe in your relationship?: Yes Time Spent with Patient Time Spent with Patient: >85 minutes Time was spent: preparing to see the patient(eg.review tests), referring, communicating with other health vision care associate, indepentently interpreting results, counseling the patient and care coordination
--- NOTE | 2023-07-12 15:16 | CMDISCH_ITS ---
Date of service: 07/12/23 Time of Service: 15:17 LACE Index Scoring Tool Questions: Length of Stay (in days): 3 Was the patient admitted via the E.D.?: Yes Comorbidities: Diabetes w/o Complication, Congestive Heart Failure and Any Tumor E.D. Visits: 4 Answers: Total Score: 15 Risk of Readmission: High Risk Care Management Discharge Plan Reason for Hospitalization: UTI, weakness Discharge Plan: Arlene will transfer to a SNF for short term rehab for strengthening prior to returning home. She has been accepted at [facility] and will transport via facility wheelchair van. Arlene will follow up with her PCP and plan of care as instructed when she returns back to the community. Patient/Family Education Needs: Review of discharge instructions including medications, limitations and follow up plan of care; discuss Ask Me Three. Services Needed at Discharge: Retirement Facility and Transportation
--- NOTE | 2023-07-12 15:43 | PT.INTREAT ---
PT Notes Visit Reasons: UTI, weakness Date: 07/12/23 ?SUBJECTIVE: Pt in bed when approached for therapy this morning, agreed to participating with therapy. ?OBJECTIVE: ? Therapeutic Activities ([id number]): Direct one-on-one instruction in dynamic activities to improve functional performance. ?BED MOBILITY/TRANSFERS?Rolling L/R: S ?Supine-sit:SBA Sit-stand:min A ?Stand-sit: SBA ?Bed-Chair: CGA ? Provided skilled?cues and instruction on performance and technique throughout. GAIT?Assistive Device:FWW?Weight bearing: WBAT ?Assist: CGA of 1?Distance:? 120' ?Therapeutic Exercises ([id number]): Direct one-on-one instruction in therapeutic exercises to develop strength, endurance, range of motion and flexibility. ?Exercises? bridging x10, SLR x10, Sitting: hip abd, heel slides, marching and LAQ x10, AP x10. ASSESSMENT:?pt tolerated activity well, reports fatigue after gait training activity, ?PLAN:Pt getting ready for DC to home with HHPT ?TREATMENT CODE/TIME: 33min 9:32-10:05am ([id number], [id number])
== END 2023-07-12 13:00 | disposition skilled nursing facility (03) | DRG 683 ==
LOC: ER 19:46 → MS 21:54
PROVIDERS: Family Medicine; Internal Medicine; Nurse Practitioner Acute Care; Student in an Organized Health Care Education/Training Program; Admitting Provider General Practice; Emergency Provider Emergency Medicine; PCP Nurse Practitioner Family; Visit Provider General Practice
DX: N17.9 Acute kidney failure, unspecified (principal); N39.0 Urinary tract infection, site not specified; I48.91 Unspecified atrial fibrillation; R53.1 Weakness; D64.9 Anemia, unspecified; E11.9 Type 2 diabetes mellitus without complications; H40.9 Unspecified glaucoma; E04.9 Nontoxic goiter, unspecified; E78.00 Pure hypercholesterolemia, unspecified; M85.80 Other specified disorders of bone density and structure, unspecified site; W18.30XA Fall on same level, unspecified, initial encounter; Z85.3 Personal history of malignant neoplasm of breast; Z79.84 Long term (current) use of oral hypoglycemic drugs; R26.2 Difficulty in walking, not elsewhere classified; E11.65 Type 2 diabetes mellitus with hyperglycemia; R41.0 Disorientation, unspecified; T43.025A Adverse effect of tetracyclic antidepressants, initial encounter; R44.1 Visual hallucinations; I12.9 Hypertensive chronic kidney disease with stage 1 through stage 4 chronic kidney disease, or unspecified chronic kidney disease; N18.9 Chronic kidney disease, unspecified; E11.22 Type 2 diabetes mellitus with diabetic chronic kidney disease
CPT/HCPCS: 36415; 80048; 80053; 82947; 85027; 87493; 87635; 96360; 97110; 97116; 97162; 97530; 99285; J1650; 70450; 81003; 81015; 83036; 83735; 84443; 85025; 87086; 93005; 93010; 99222; 99233; 99239; J0696; J0780

== ENCOUNTER 2023-08-11 12:56 | Outpatient (REF) | payer MEDICARE, SELFPAY ==
[2023-08-11 16:02] LABS: Abs Immature Grans 0.03 10^3/uL (0.0-0.06); Absolute Basophil Count 0.05 10^3/uL (0.0-0.2); Absolute Eosinophil Count 0.25 10^3/uL (0.0-0.7); Absolute Lymphocyte Count 1.71 10^3/uL (1.2-3.4); Absolute Monocyte Count 0.44 10^3/uL (0.1-0.8); Absolute Neutrophil Count 5.26 10^3/uL (1.2-6.7); Basophils % 0.6; Eosinophils % 3.2; HCT 28.4 % (36.0-46.0); HGB 8.7 g/dL (11.2-15.7); Immature Grans % 0.4; Lymphocytes % 22.1; MCH 27.8 pg (27.0-33.0); MCHC 30.6 % (32.0-36.0); MCV 91 fL (80-95); MPV 10.4 fL (8.0-11.0); Monocytes % 5.7; Platelet Count 222 10^3/uL (130-400); RBC 3.13 10^6/uL (3.93-5.22); RDW 15.9 % (11.7-14.6); RDW-SD 52.8 fL; WBC 7.74 10^3/uL (4.4-10.8)
[2023-08-11 16:23] LABS: Bilirubin Negative (Negative); Blood Trace-intact (Negative); Clarity Clear (Clear); Glucose Negative (Negative); Ketones Negative (Negative); Leukocyte Esterase Small (Negative); Nitrite Negative (Negative); Urobilinogen 0.2 mg/dL (Up to 0.2); pH 6.5 (5-8)
[2023-08-11 16:26] LABS: Iron 29 ug/dL (50-170); Total Iron Binding Capacity 224 ug/dL (250-450); Transferrin Sat 13 % (15-50)
[2023-08-11 16:39] LABS: Anion Gap 12.3 mmol/L (3-11); BUN 17 mg/dL (7-18); CO2 22.7 mmol/L (21.0-32.0); CREATININE 1.3 mg/dL (0.55-1.02); Calcium 9.3 mg/dL (8.5-10.1); Chloride 105 mmol/L (98-107); Estimated GFR 41.83 (mL/min/1.73m2); Ferritin 59 ng/mL (8-252); Glucose 129 mg/dL (74-106); Potassium 4.7 mmol/L (3.5-5.1); Sodium 140 mmol/L (136-145)
[2023-08-11 16:42] LABS: Bacteria Moderate HPF (Negative); C & S Indicated? C&S Done As Ordered; Casts Negative LPF (Negative); Crystals Negative HPF (Negative); Epithelial Cells Few HPF (Negative); Mucus Trace (Negative); Other Cells Rare Transitional (Negative)
== END 2023-08-11 12:57 | disposition home or self-care (01) ==
LOC: NCHCN 12:56
PROVIDERS: PCP Nurse Practitioner Family; Visit Provider Nurse Practitioner Family
DX: N39.0 Urinary tract infection, site not specified (principal); R79.89 Other specified abnormal findings of blood chemistry
CPT/HCPCS: 80048; 81003; 81015; 82728; 83540; 83550; 85025; 87086

== ENCOUNTER 2024-01-26 14:37 | Outpatient (REF) | payer MEDICARE, SELFPAY ==
[2024-01-26 16:42] LABS: HCT 30.4 % (36.0-46.0); MCH 25.6 pg (27.0-33.0); MCHC 28.6 % (32.0-36.0); MCV 89 fL (80-95); MPV 9.9 fL (8.0-11.0); Platelet Count 256 10^3/uL (130-400); RDW 15.5 % (11.7-14.6); WBC 9.27 10^3/uL (4.4-10.8)
[2024-01-26 16:57] LABS: HGB 8.7 g/dL (11.2-15.7)
[2024-01-26 17:30] LABS: Ferritin 50 ng/mL (8-252)
[2024-01-26 18:07] LABS: Iron 31 ug/dL (50-170)
[2024-01-30 10:25] LABS: Transferrin 198 mg/dL (201-352)
== END 2024-01-26 14:38 | disposition home or self-care (01) ==
LOC: NCHCN 14:37
PROVIDERS: PCP Nurse Practitioner Family; Visit Provider Nurse Practitioner Family
DX: D53.9 Nutritional anemia, unspecified (principal)
CPT/HCPCS: 85027; 82728; 83540; 83550; 84466

== ENCOUNTER 2024-03-22 12:58 | Outpatient (REF) | payer MEDICARE, SELFPAY ==
[2024-03-22 15:19] LABS: Reticulocyte 1.5 % (0.5-2.4)
[2024-03-22 16:00] LABS: TSH 0.19 uIU/Ml (0.36-3.74); Vitamin B12 251 pg/mL (193-986)
== END 2024-03-22 12:59 | disposition home or self-care (01) ==
LOC: NCHCN 12:58
PROVIDERS: PCP Nurse Practitioner Family; Visit Provider Nurse Practitioner Family
DX: D53.9 Nutritional anemia, unspecified (principal)
CPT/HCPCS: 82607; 84443; 85045

== ENCOUNTER 2024-05-04 16:48 | Outpatient (REF) | payer MEDICARE, SELFPAY | END 2024-05-04 16:49 | disposition home or self-care (01) | LOC: NCHCN 16:48 | PROVIDERS: PCP Nurse Practitioner Family; Visit Provider Nurse Practitioner Family | DX: N39.0 Urinary tract infection, site not specified (principal) | CPT/HCPCS: 87086 ==

== ENCOUNTER 2024-12-10 02:30 | Outpatient (RCR) | payer MEDICARE, SELFPAY ==
[2024-12-10] MEDS: Normal Saline Flush 10 ML SYR IVP (08:10)
[2024-12-10 08:41] LABS: Abs Immature Grans 0.06 10^3/uL (0.0-0.06); Absolute Basophil Count 0.03 10^3/uL (0.0-0.2); Absolute Eosinophil Count 0.33 10^3/uL (0.0-0.7); Absolute Lymphocyte Count 0.85 10^3/uL (1.2-3.4); Absolute Monocyte Count 0.52 10^3/uL (0.1-0.8); Absolute Neutrophil Count 6.65 10^3/uL (1.2-6.7); Basophils % 0.4 %; Eosinophils % 3.9 %; HCT 26.7 % (36.0-46.0); HGB 7.9 g/dL (11.2-15.7); Immature Grans % 0.7 %; Lymphocytes % 10.1 %; MCHC 29.6 % (32.0-36.0); MCV 81 fL (80-95); MPV 9.7 fL (8.0-11.0); Monocytes % 6.2 %; Neutrophils % 78.7 %; Platelet Count 216 10^3/uL (130-400); RBC 3.29 10^6/uL (3.93-5.22); RDW 17.9 % (11.7-14.6); RDW-SD 53.1 fL; WBC 8.44 10^3/uL (4.4-10.8)
[2024-12-10 09:47] VITALS: BP 124/77; PULSE 71; RESP 18; TEMP 36.5; O2SAT 99
[2024-12-10 10:02] VITALS: BP 109/74; PULSE 75; RESP 18; TEMP 36.6; O2SAT 99
[2024-12-10 10:21] VITALS: BP 116/73; PULSE 79; RESP 18; TEMP 36.4; O2SAT 98
[2024-12-10 10:32] VITALS: BP 127/62; PULSE 74; RESP 18; TEMP 36.7; O2SAT 99
[2024-12-10 11:32] VITALS: BP 145/81; PULSE 74; RESP 18; TEMP 36.6; O2SAT 100
== END 2024-12-14 23:59 | disposition home or self-care (01) ==
LOC: INF 02:30
PROVIDERS: PCP Nurse Practitioner Family; Visit Provider Internal Medicine Hematology & Oncology
DX: C18.2 Malignant neoplasm of ascending colon (principal); D64.9 Anemia, unspecified
CPT/HCPCS: 36430; 36591; 86850; 86900; 86901; 86920; 85025; 86644; P9016

== ENCOUNTER 2025-01-14 01:33 | Outpatient (RCR) | payer MEDICARE, SELFPAY ==
[2024-12-17] MEDS: Normal Saline Flush 10 ML SYR IVP (08:14)
[2024-12-17 08:18] LABS: Abs Immature Grans 0.06 10^3/uL (0.0-0.06); Absolute Basophil Count 0.05 10^3/uL (0.0-0.2); Absolute Eosinophil Count 0.33 10^3/uL (0.0-0.7); Absolute Lymphocyte Count 1.06 10^3/uL (1.2-3.4); Absolute Monocyte Count 0.47 10^3/uL (0.1-0.8); Absolute Neutrophil Count 6.89 10^3/uL (1.2-6.7); Basophils % 0.6 %; Eosinophils % 3.7 %; HCT 30.5 % (36.0-46.0); HGB 9.1 g/dL (11.2-15.7); Immature Grans % 0.7 %; MCH 24.9 pg (27.0-33.0); MCHC 29.8 % (32.0-36.0); MCV 84 fL (80-95); MPV 9.6 fL (8.0-11.0); Monocytes % 5.3 %; Neutrophils % 77.7 %; Platelet Count 215 10^3/uL (130-400); RBC 3.65 10^6/uL (3.93-5.22); RDW-SD 54.6 fL; WBC 8.86 10^3/uL (4.4-10.8)
[2024-12-24] MEDS: Normal Saline Flush 10 ML SYR IVP (08:20)
[2024-12-24 08:40] LABS: Abs Immature Grans 0.04 10^3/uL (0.0-0.06); Absolute Basophil Count 0.05 10^3/uL (0.0-0.2); Absolute Eosinophil Count 0.35 10^3/uL (0.0-0.7); Absolute Lymphocyte Count 1.05 10^3/uL (1.2-3.4); Absolute Monocyte Count 0.42 10^3/uL (0.1-0.8); Basophils % 0.6 %; Eosinophils % 4.4 %; HGB 8.4 g/dL (11.2-15.7); Immature Grans % 0.5 %; Lymphocytes % 13.1 %; MCH 24.9 pg (27.0-33.0); MCV 83 fL (80-95); MPV 9.9 fL (8.0-11.0); Monocytes % 5.2 %; Neutrophils % 76.2 %; Platelet Count 196 10^3/uL (130-400); RBC 3.37 10^6/uL (3.93-5.22); RDW 18.7 % (11.7-14.6); RDW-SD 56.8 fL; WBC 8.01 10^3/uL (4.4-10.8)
[2024-12-24 09:11] LABS: Anisocytosis 1+; Diff Comment RBC Morph Reviewed; Hypochromasia 1+; Polychromasia Present; RBC Morphology Normal
[2024-12-24 09:12] LABS: Poikilocytes 1+
[2024-12-27] MEDS: Normal Saline Flush 10 ML SYR IVP (10:25)
[2024-12-27 10:53] LABS: Abs Immature Grans 0.03 10^3/uL (0.0-0.06); Absolute Basophil Count 0.04 10^3/uL (0.0-0.2); Absolute Eosinophil Count 0.29 10^3/uL (0.0-0.7); Absolute Lymphocyte Count 0.95 10^3/uL (1.2-3.4); Absolute Monocyte Count 0.33 10^3/uL (0.1-0.8); Absolute Neutrophil Count 4.55 10^3/uL (1.2-6.7); Basophils % 0.6 %; Eosinophils % 4.7 %; HCT 27.5 % (36.0-46.0); HGB 8.2 g/dL (11.2-15.7); Immature Grans % 0.5 %; Lymphocytes % 15.3 %; MCH 25.2 pg (27.0-33.0); MCHC 29.8 % (32.0-36.0); MCV 85 fL (80-95); MPV 10.3 fL (8.0-11.0); Monocytes % 5.3 %; Neutrophils % 73.6 %; Platelet Count 182 10^3/uL (130-400); RBC 3.25 10^6/uL (3.93-5.22); RDW-SD 58.9 fL; WBC 6.19 10^3/uL (4.4-10.8)
[2024-12-27 11:39] LABS: ALT 13 U/L (14-59); AST 8 U/L (15-37); Albumin 2.6 g/dL (3.4-5.0); Alkaline Phosphatase 98 U/L (46-116); Anion Gap 10.6 mmol/L (3-11); BUN 34 mg/dL (7-18); Bilirubin, Total 0.2 mg/dL (0.2-1.0); CO2 24.4 mmol/L (21.0-32.0); Calcium 9.3 mg/dL (8.5-10.1); Chloride 106 mmol/L (98-107); Estimated GFR 24.64 (mL/min/1.73m2); Glucose 211 mg/dL (74-106); Potassium 4.9 mmol/L (3.5-5.1); Sodium 141 mmol/L (136-145); TSH 0.57 uIU/mL (0.36-3.74); Total Protein 6.7 g/dL (6.4-8.2)
[2024-12-27 17:31] LABS: T4, Free 1.6 ng/dL (0.8-2.2)
[2024-12-27 17:52] LABS: CEA 71.1 ng/mL (See Note)
[2025-01-02 07:50] LABS: Abs Immature Grans 0.04 10^3/uL (0.0-0.06); Absolute Basophil Count 0.04 10^3/uL (0.0-0.2); Absolute Eosinophil Count 0.41 10^3/uL (0.0-0.7); Absolute Monocyte Count 0.45 10^3/uL (0.1-0.8); Absolute Neutrophil Count 5.39 10^3/uL (1.2-6.7); Basophils % 0.5 %; Eosinophils % 5.4 %; HCT 26.3 % (36.0-46.0); HGB 7.9 g/dL (11.2-15.7); Immature Grans % 0.5 %; Lymphocytes % 15.9 %; MCH 25.4 pg (27.0-33.0); MCV 85 fL (80-95); MPV 9.8 fL (8.0-11.0); Neutrophils % 71.7 %; Platelet Count 183 10^3/uL (130-400); RBC 3.11 10^6/uL (3.93-5.22); RDW 19.9 % (11.7-14.6); RDW-SD 61.8 fL; WBC 7.53 10^3/uL (4.4-10.8)
[2025-01-02] MEDS: Normal Saline Flush 10 ML SYR IVP (08:06)
[2025-01-02 08:47] VITALS: BP 124/82; PULSE 84; RESP 19; TEMP 36.6; O2SAT 100
[2025-01-02 09:10] VITALS: BP 109/52; PULSE 80; RESP 18; TEMP 36.6; O2SAT 100
[2025-01-02 09:25] VITALS: BP 131/77; PULSE 79; RESP 18; TEMP 37; O2SAT 100
[2025-01-02 09:32] VITALS: BP 100/56; PULSE 79; RESP 18; TEMP 36.6; O2SAT 98
[2025-01-02 10:36] VITALS: BP 105/50; PULSE 79; RESP 18; TEMP 36.6; O2SAT 100
[2025-01-07] MEDS: Normal Saline Flush 10 ML SYR IVP (08:21)
[2025-01-07 08:45] LABS: Abs Immature Grans 0.04 10^3/uL (0.0-0.06); Absolute Basophil Count 0.03 10^3/uL (0.0-0.2); Absolute Lymphocyte Count 1.33 10^3/uL (1.2-3.4); Absolute Neutrophil Count 4.19 10^3/uL (1.2-6.7); Basophils % 0.5 %; Eosinophils % 6.3 %; HCT 29.1 % (36.0-46.0); Immature Grans % 0.6 %; Lymphocytes % 20.8 %; MCH 26.2 pg (27.0-33.0); MCHC 30.9 % (32.0-36.0); MCV 85 fL (80-95); MPV 9.9 fL (8.0-11.0); Monocytes % 6.3 %; Neutrophils % 65.5 %; Platelet Count 178 10^3/uL (130-400); RBC 3.43 10^6/uL (3.93-5.22); RDW 20.1 % (11.7-14.6); RDW-SD 62.2 fL; WBC 6.39 10^3/uL (4.4-10.8)
[2025-01-07 09:12] LABS: Anisocytosis 2+; Diff Comment RBC Morph Reviewed
[2025-01-14] MEDS: Normal Saline Flush 10 ML SYR IVP (08:45)
[2025-01-14 09:04] LABS: Abs Immature Grans 0.04 10^3/uL (0.0-0.06); Absolute Basophil Count 0.04 10^3/uL (0.0-0.2); Absolute Eosinophil Count 0.44 10^3/uL (0.0-0.7); Absolute Lymphocyte Count 1.23 10^3/uL (1.2-3.4); Absolute Monocyte Count 0.37 10^3/uL (0.1-0.8); Absolute Neutrophil Count 4.52 10^3/uL (1.2-6.7); Basophils % 0.6 %; Eosinophils % 6.6 %; HCT 28.9 % (36.0-46.0); HGB 8.7 g/dL (11.2-15.7); Immature Grans % 0.6 %; Lymphocytes % 18.5 %; MCH 26.8 pg (27.0-33.0); MCHC 30.1 % (32.0-36.0); MCV 89 fL (80-95); MPV 10.9 fL (8.0-11.0); Monocytes % 5.6 %; Neutrophils % 68.1 %; Platelet Count 165 10^3/uL (130-400); RBC 3.25 10^6/uL (3.93-5.22); RDW 20.8 % (11.7-14.6); RDW-SD 68.2 fL; WBC 6.64 10^3/uL (4.4-10.8)
[2025-01-14 09:26] LABS: Anisocytosis 2+; Diff Comment RBC Morph Reviewed
== END 2025-01-14 23:59 | disposition home or self-care (01) ==
LOC: INF 01:33
PROVIDERS: PCP Nurse Practitioner Family; Visit Provider Internal Medicine Hematology & Oncology
DX: C18.2 Malignant neoplasm of ascending colon (principal); D64.9 Anemia, unspecified; Z79.899 Other long term (current) drug therapy
CPT/HCPCS: 36430; 36591; 80053; 86850; 86900; 86901; 86920; 82378; 84439; 84443; 85025; P9016

== ENCOUNTER 2025-01-17 01:34 | Outpatient (RCR) | payer MEDICARE, SELFPAY ==
[2025-01-17] MEDS: Normal Saline Flush 10 ML SYR IVP (09:46)
[2025-01-17 10:30] LABS: ALT 15 U/L (14-59); AST 14 U/L (15-37); Albumin 2.6 g/dL (3.4-5.0); Alkaline Phosphatase 88 U/L (46-116); Anion Gap 9.1 mmol/L (3-11); BUN 48 mg/dL (7-18); Bilirubin, Total 0.3 mg/dL (0.2-1.0); CO2 26.9 mmol/L (21.0-32.0); Calcium 8.9 mg/dL (8.5-10.1); Chloride 109 mmol/L (98-107); Estimated GFR 24.64 (mL/min/1.73m2); FREE T4 0.99 ng/dL (0.76-1.46); Glucose 247 mg/dL (74-106); Potassium 4.3 mmol/L (3.5-5.1); Sodium 145 mmol/L (136-145); TSH 1.22 uIU/mL (0.36-3.74); Total Protein 6.5 g/dL (6.4-8.2)
[2025-01-17 18:52] LABS: CEA 14.3 ng/mL (See Note)
== END 2025-02-13 23:59 | disposition home or self-care (01) ==
LOC: INF 01:34
PROVIDERS: PCP Nurse Practitioner Family; Visit Provider Internal Medicine Hematology & Oncology
DX: C18.2 Malignant neoplasm of ascending colon (principal); Z79.899 Other long term (current) drug therapy
CPT/HCPCS: 36591; 80053; 82378; 84439; 84443

== ENCOUNTER 2025-02-04 02:20 | Outpatient (RCR) | payer MEDICARE, MEDICAID, SELFPAY ==
[2025-01-21] MEDS: Normal Saline Flush 10 ML SYR IVP (08:09)
[2025-01-21 08:24] LABS: Abs Immature Grans 0.03 10^3/uL (0.0-0.06); Absolute Basophil Count 0.03 10^3/uL (0.0-0.2); Absolute Eosinophil Count 0.29 10^3/uL (0.0-0.7); Absolute Lymphocyte Count 0.98 10^3/uL (1.2-3.4); Absolute Monocyte Count 0.44 10^3/uL (0.1-0.8); Absolute Neutrophil Count 5.06 10^3/uL (1.2-6.7); Basophils % 0.4 %; Eosinophils % 4.2 %; HCT 27.3 % (36.0-46.0); HGB 8.3 g/dL (11.2-15.7); Immature Grans % 0.4 %; Lymphocytes % 14.3 %; MCHC 30.4 % (32.0-36.0); MCV 89 fL (80-95); MPV 9.8 fL (8.0-11.0); Monocytes % 6.4 %; Neutrophils % 74.3 %; Platelet Count 187 10^3/uL (130-400); RBC 3.07 10^6/uL (3.93-5.22); RDW 22.1 % (11.7-14.6); RDW-SD 72.6 fL; WBC 6.83 10^3/uL (4.4-10.8)
[2025-01-21 08:38] LABS: Anisocytosis 2+; Diff Comment RBC Morph Reviewed
[2025-01-28] MEDS: Normal Saline Flush 10 ML SYR IVP (08:04)
[2025-01-28 08:16] LABS: Abs Immature Grans 0.05 10^3/uL (0.0-0.06); Absolute Basophil Count 0.05 10^3/uL (0.0-0.2); Absolute Eosinophil Count 0.41 10^3/uL (0.0-0.7); Absolute Lymphocyte Count 1.27 10^3/uL (1.2-3.4); Absolute Monocyte Count 0.44 10^3/uL (0.1-0.8); Absolute Neutrophil Count 4.79 10^3/uL (1.2-6.7); Basophils % 0.7 %; Eosinophils % 5.8 %; HCT 27.1 % (36.0-46.0); HGB 8.2 g/dL (11.2-15.7); Immature Grans % 0.7 %; Lymphocytes % 18.1 %; MCH 27.1 pg (27.0-33.0); MCHC 30.3 % (32.0-36.0); MCV 89 fL (80-95); MPV 9.6 fL (8.0-11.0); Monocytes % 6.3 %; Neutrophils % 68.4 %; Platelet Count 205 10^3/uL (130-400); RBC 3.03 10^6/uL (3.93-5.22); RDW 21.2 % (11.7-14.6); RDW-SD 69.7 fL; WBC 7.01 10^3/uL (4.4-10.8)
[2025-01-28 08:33] LABS: Anisocytosis 2+; Diff Comment RBC Morph Reviewed
[2025-02-04] MEDS: Normal Saline Flush 10 ML SYR IVP (08:05)
[2025-02-04 08:12] LABS: Abs Immature Grans 0.04 10^3/uL (0.0-0.06); Absolute Basophil Count 0.04 10^3/uL (0.0-0.2); Absolute Lymphocyte Count 1.22 10^3/uL (1.2-3.4); Absolute Monocyte Count 0.44 10^3/uL (0.1-0.8); Absolute Neutrophil Count 4.95 10^3/uL (1.2-6.7); Basophils % 0.6 %; Eosinophils % 5.6 %; HCT 28.2 % (36.0-46.0); HGB 8.5 g/dL (11.2-15.7); Immature Grans % 0.6 %; Lymphocytes % 17.2 %; MCH 27.7 pg (27.0-33.0); MCHC 30.1 % (32.0-36.0); MCV 92 fL (80-95); Monocytes % 6.2 %; Neutrophils % 69.8 %; Platelet Count 199 10^3/uL (130-400); RBC 3.07 10^6/uL (3.93-5.22); RDW 21.9 % (11.7-14.6); RDW-SD 74.7 fL; WBC 7.09 10^3/uL (4.4-10.8)
[2025-02-04 08:28] LABS: Anisocytosis 2+; Diff Comment RBC Morph Reviewed
[2025-02-04 08:37] LABS: ALT 12 U/L (14-59); AST 12 U/L (15-37); Alkaline Phosphatase 107 U/L (46-116); Anion Gap 3.8 mmol/L (3-11); BUN 45 mg/dL (7-18); Bilirubin, Total 0.3 mg/dL (0.2-1.0); CO2 30.2 mmol/L (21.0-32.0); CREATININE 2.1 mg/dL (0.55-1.02); Calcium 9.4 mg/dL (8.5-10.1); Chloride 108 mmol/L (98-107); Estimated GFR 23.23 (mL/min/1.73m2); FREE T4 1.04 ng/dL (0.76-1.46); Glucose 136 mg/dL (74-106); Potassium 5.5 mmol/L (3.5-5.1); Sodium 142 mmol/L (136-145); TSH 2.52 uIU/mL (0.36-3.74); Total Protein 7.1 g/dL (6.4-8.2)
[2025-02-04 18:12] LABS: CEA 4.7 ng/mL (See Note)
== END 2025-02-13 23:59 | disposition home or self-care (01) ==
LOC: INF 02:20
PROVIDERS: PCP Nurse Practitioner Family; Visit Provider Internal Medicine Hematology & Oncology
DX: D64.9 Anemia, unspecified (principal); C18.2 Malignant neoplasm of ascending colon; Z79.899 Other long term (current) drug therapy; Z45.2 Encounter for adjustment and management of vascular access device
CPT/HCPCS: 36591; 80053; 86850; 86900; 86901; 82378; 84439; 84443; 85025

== ENCOUNTER 2025-02-07 16:32 | Outpatient (REF) | payer MEDICARE, SELFPAY ==
[2025-02-07 13:41] LABS: ALT 14 U/L (14-59); AST 12 U/L (15-37); Alkaline Phosphatase 107 U/L (46-116); Anion Gap 7.4 mmol/L (3-11); BUN 43 mg/dL (7-18); Bilirubin, Total 0.2 mg/dL (0.2-1.0); CO2 28.6 mmol/L (21.0-32.0); CREATININE 1.9 mg/dL (0.55-1.02); Calcium 9.2 mg/dL (8.5-10.1); Chloride 107 mmol/L (98-107); Glucose 211 mg/dL (74-106); Sodium 143 mmol/L (136-145); Total Protein 6.9 g/dL (6.4-8.2)
== END 2025-02-07 16:33 | disposition home or self-care (01) ==
LOC: LBN 16:32
PROVIDERS: PCP Nurse Practitioner Family; Visit Provider Internal Medicine Hematology & Oncology
DX: C18.2 Malignant neoplasm of ascending colon (principal)
CPT/HCPCS: 80053

== ENCOUNTER → 2025-02-12 10:00 | Outpatient (BNVA) | payer MEDICARE, SELFPAY | PROVIDERS: PCP Nurse Practitioner Family; Referring Provider Nurse Practitioner Family; Visit Provider Surgery ==

== ENCOUNTER 2025-02-28 01:32 | Outpatient (RCR) | payer MEDICARE, MEDICAID, SELFPAY ==
[2025-02-28] MEDS: Normal Saline Flush 10 ML SYR IVP (13:32)
[2025-02-28 13:54] LABS: Abs Immature Grans 0.02 10^3/uL (0.0-0.06); Absolute Basophil Count 0.03 10^3/uL (0.0-0.2); Absolute Eosinophil Count 0.21 10^3/uL (0.0-0.7); Absolute Lymphocyte Count 0.92 10^3/uL (1.2-3.4); Absolute Monocyte Count 0.36 10^3/uL (0.1-0.8); Absolute Neutrophil Count 3.28 10^3/uL (1.2-6.7); Basophils % 0.6 %; Eosinophils % 4.4 %; HCT 27.2 % (36.0-46.0); HGB 8.5 g/dL (11.2-15.7); Immature Grans % 0.4 %; Lymphocytes % 19.1 %; MCH 28.8 pg (27.0-33.0); MCHC 31.3 % (32.0-36.0); MCV 92 fL (80-95); Monocytes % 7.5 %; Platelet Count 162 10^3/uL (130-400); RBC 2.95 10^6/uL (3.93-5.22); RDW 18.5 % (11.7-14.6); RDW-SD 62.2 fL; WBC 4.82 10^3/uL (4.4-10.8)
[2025-02-28 14:19] LABS: ALT 13 U/L (14-59); AST 13 U/L (15-37); Alkaline Phosphatase 106 U/L (46-116); Anion Gap 5.6 mmol/L (3-11); BUN 47 mg/dL (7-18); Bilirubin, Total 0.3 mg/dL (0.2-1.0); CO2 27.4 mmol/L (21.0-32.0); Calcium 9.3 mg/dL (8.5-10.1); Chloride 106 mmol/L (98-107); Estimated GFR 24.64 (mL/min/1.73m2); FREE T4 1.05 ng/dL (0.76-1.46); Glucose 211 mg/dL (74-106); Potassium 5.1 mmol/L (3.5-5.1); Sodium 139 mmol/L (136-145); TSH 2.55 uIU/mL (0.36-3.74)
[2025-03-01 09:15] LABS: CEA 2.2 ng/mL (See Note)
== END 2025-03-16 23:59 | disposition home or self-care (01) ==
LOC: INF 01:32
PROVIDERS: PCP Nurse Practitioner Family; Visit Provider Internal Medicine Hematology & Oncology
DX: C18.2 Malignant neoplasm of ascending colon (principal); Z79.899 Other long term (current) drug therapy
CPT/HCPCS: 36591; 80053; 82378; 84439; 84443; 85025

== ENCOUNTER 2025-03-01 00:19 | Outpatient (CLI) | payer MEDICARE, MEDICAID, SELFPAY ==
--- NOTE | 2025-03-01 09:30 | DI.US_ITS ---
APPROVED REPORT EXAM: Comprehensive 2D, Doppler, and color-flow Echocardiogram Patient Location: Out-Patient [place] Tender: Eddie Ronquillo RDCS (AE) Indications: Peripheral edema, pleural effusion Other Information Study Quality: Adequate Conclusion Normal left ventricular wall thickness and chamber size. Ejection fraction is 60 to 65%. Wall motio n is normal Normal right ventricular size and function Mildly dilated left atrium. Normal right atrial size Aortic valve is sclerotic and probably trileaflet. There is no aortic stenosis or regurgitation Mitral annular calcification. Mild mitral regurgitation Estimated right ventricular systolic pressure is 22 mmHg Wall motion Left Ventricle The left ventricle is normal size. The left ventricular systolic function is normal. The left ventric ular ejection fraction is within the normal range. There is normal left ventricular wall thickness.. There is normal LV segmental wall motion. There is no ventricular septal defect visualized. LVEF is 6 0-65%. Right Ventricle The right ventricle is normal size. The right ventricular systolic function is normal. Atria Left atrium is mildly dilated. The right atrium size is normal. The interatrial septum is intact with no evidence for an atrial septal defect. Aortic Valve The aortic valve is sclerotic. Aortic valve is probably trileaflet. There is no aortic valvular steno sis. No aortic regurgitation is present. Mitral Valve Moderate mitral annular calcification. No evidence of mitral valve stenosis. Mild mitral regurgitatio n. Tricuspid Valve The tricuspid valve is normal in structure. There is no tricuspid valve stenosis. Trace tricuspid reg urgitation. The RVSP is 22.1 mmHg. Pulmonic Valve The pulmonary valve is normal in structure. There is no pulmonic valvular stenosis. There is no pulmo franky valvular regurgitation. Great Vessels The aortic root is normal in size. The ascending aorta is normal in size. IVC is normal in size and collapses >50% with inspiration. Pericardium There is no pericardial effusion. 2D Dimensions IVSD d PLAX 1.08 cm F: 0.6-1.0 Ao Root d 2.03 cm F: 2.7 - 3.3 LVPW d PLAX 1.07 cm F: 0.6 - 1.0 Ao Asc Diam d 3.33 cm F: 2.3 - 3.1 LVID d PLAX 4.32 cm F: 3.8 - 5.2 LVDs 3.02 cm F: 2.2 - 3.5 LV EF Teichholz 57.4 % FS 29.92 % LV EDV (Teich) 83.8 mL LV ESV (Teich) 35.7 mL Stroke Vol Index (Teich) 24.05 M-Mode TAPSE 2.69 cm (M/F) >1.7 Auto EF LV EDV A4C 77.9 mL LV EDV A2C 81.0 mL LV EDV BP 79.4 mL LV ESV A4C 29.2 mL LV ESV A2C 33.1 mL LV ESV BP 30.7 mL LVEF(%) A4C 62.5 % LVEF(%) A2C 59.1 % LVEF(%) BP 61.4 % LV SV A4C 48.7 ml LV SV A2C 47.9 ml LV SV BP 48.8 ml LV CO A4C 3.9 L/min LV CO A2C 3.8 L/min LV CO BP 3.8 L/min HR A4C 79.65 BPM HR A2C 79.30 BPM LV EDV Index (BP) LA Volume LA Length A4C 5.9 cm LA Length A2C 5.3 cm LA Area A4C s 19.31 cm2 LA Area A2C s 17.41 cm2 LA Vol A4C A-L 53.34 mL LA Vol A2C A-L 48.69 mL LA Vol Biplane A-L 54.0 mL LA Vol/BSA A4C A-L LA Vol/BSA A2C A-L LA Vol/BSA BP A-L 27.0 mL/m2 LA Vol A4C MOD 51.0 mL LA Vol A2C MOD 46.6 mL LA Vol BP MOD 51.6 mL RA Volume RA Area A4C 10.2 cm2 RA ESV A4C (A-L) 21.5mL RA Vol/BSA A4C A-L RA Length A4C 4.1 cm RA ESV A4C (MOD) 21.6mL LV Diastology MV E' medial 0.089 (>0.07 m/s) MV E Vmax 1.19 (0.4-1.3 m/s) MV E/E' MED 13.45 (<14) MV A Vmax 0.85 (0.4-1.3 m/s) MV E' lateral 0.085 (>0.1 m/s) E/A Ratio 1.4 MV E/E' LAT 13.96 (<14) MV E' Average 0.087 m/s MV E/E'(average) 13.70 Aortic Valve AoV Vmax 2.07 m/s LVOT Vmax 0.94 m/s AoV Peak Grad 17.1 mmHg LVOT Peak Grad 3.5 mmHg AoV Area (Vmax) 1.40 cm2 LVOT VTI 0.241 m AoV VTI 0.538 m LVOT Mean Grad 2.5 mmHg AoV Mean Saulo. 1.49 m/s LVOT SV 74.01 mL AoV Mean Grad 10.1 mmHg LVOT Diam s 1.95 cm AoV Area (VTI) 1.38 cm2 AV Regurg Peak Gr. 17.12 mmHg Velocity Ratio 0.45 Mitral Valve MV DT 201 (160-240 msec) Pulmonary Valve PV Vmax 1.06 (0.5-1.5 m/s) RVOT Vmax 0.79 m/s PV Peak Grad 4.5 mmHg RVOT Peak Gr. 2.5 mmHg PV Mean Saulo 0.75 m/s RVOT VTI 0.189 m PV Mean Grad 2.5 mmHg RVOT Mean Gr. 1.5 mmHg Tricuspid Valve RA Pressure 3.00 mmHg TR Vmax 2.18 m/s TV S' 0.17 m/s TR Peak Grad 19.0 mmHg RVSP (TR) 22.1 mmHg
== END 2025-03-01 00:39 ==
PROVIDERS: PCP Nurse Practitioner Family; Visit Provider Nurse Practitioner Family
DX: R60.0 Localized edema (principal); I08.3 Combined rheumatic disorders of mitral, aortic and tricuspid valves
CPT/HCPCS: 93306

== ENCOUNTER → 2025-03-06 12:43 | Outpatient (BNVA) | payer MEDICARE, MEDICAID, SELFPAY | PROVIDERS: PCP Nurse Practitioner Family; Referring Provider Nurse Practitioner Family; Visit Provider Surgery | DX: J90 Pleural effusion, not elsewhere classified (principal) | CPT/HCPCS: 99214 ==

== ENCOUNTER 2025-03-19 11:07 | Day surgery (SDC) | payer MEDICARE, MEDICAID, SELFPAY ==
--- NOTE | 2025-03-18 20:13 | W.PM.ENDDOP ---
Date of service: 03/19/25 Endoscopy Report DATE OF PROCEDURE: 03/19/25 PRE-OP DIAGNOSIS: pleural effusion POST-OP DIAGNOSIS: same SURGEON: Erwin Fowler ANESTHESIA TYPE: Local By Surgeon
--- NOTE | 2025-03-18 20:14 | W.PM.DSUDISC ---
Date of service: 03/19/25 Discharge Plan Disposition Patient Disposition: Home Condition: Fair Discharge Details Reason For Visit: thoracentesis Attending Provider: Erwin Fowler Primary Care Provider: Geovanna Anders Home Meds and New Rx's Prescriptions: Continued levothyroxine 88 mcg capsule 88 mcg PO DAILY citalopram 20 mg tablet 20 mg PO DAILY mirtazapine 7.5 mg tablet 1 tab PO HS Patient Comments: Take 1 tablet by mouth every night metoprolol succinate 100 mg Tablet Extended Release 24 Hr 100 mg PO BID Qty: 0 0RF glipizide 10 mg Tablet 10 mg PO BID simvastatin 20 mg tablet 20 mg PO HS metformin 500 mg tablet extended release 24hr 500 mg PO BID Patient Comments: Take 1 tablet by mouth twice a day acetaminophen 325 mg Tablet 650 mg PO Q6H PRN PRNQty: 30 0RF furosemide 20 mg Tablet 20 mg PO DAILY Qty: 60 1RF ferrous gluconate 324 mg (38 mg iron) Tablet 324 mg PO DAILY Qty: 60 1RF No Action lisinopril-hydrochlorothiazide .ROUTE Discharge Instructions Instructions: Thoracentesis (DC) Additional Instructions: Arlene, was a pleasure seeing you today, and I hope you feel well after the procedure. Things went very smoothly. I did drain some fluid from around your lung, as we discussed beforehand, and we will send specimens off to the lab for testing. I will be sure to make sure that your cancer specialist get those results. If you develop any shortness of breath, chest pain, or anything that seems out of the ordinary, please let me know immediately. I do not suspect any of those things will happen, but we are certainly here for you if something feels out of sorts. Stand Alone Forms: Toni Olivares (DSU) Activity:: Activity as Tolerated Remove Dressings/Wound Care:: 24 hours Shower/Bathe:: 24 hours Diet:: As Tolerated Discharge Orders Discharge Orders: Discharge Order (Routine); Ordered 03/18/25 Ordered By: Erwin Fowler DS: Diagnosis Discharge Diagnosis (1) Pleural effusion: Asessment and Plan: Follow-up on pathology results
--- NOTE | 2025-03-19 | DI.RAD_ITS ---
Exam(s) XR PORTABLE CHEST AP EXAM: XR PORTABLE CHEST AP CLINICAL HISTORY: Right-sided thoracentesis. TECHNIQUE: 2D digital imaging was performed. COMPARISON: CR XR PORTABLE CHEST AP from 05/07/[address] RENAL COLIC WO from 06/19/2023 FINDINGS: Single AP portable view. The position of the right supra clavi in Port-A-Cath is in good position with its distal tip in the l ower SVC Heart size is upper normal. The mediastinum is not widened. No confluent lung infiltrates nor pleural effusions. No pneumothorax. Osteoarthritic degenerative changes in both shoulders glenohumeral joints and AC joints noted. IMPRESSION: No acute pulmonary findings on this single AP portable view of the chest. Port-A-Cath distal tip is in good position in the lower SVC. No pneumothorax. DATA REPOSITORY: RADIATION DOSE DELIVERED:
[2025-03-19 11:35] VITALS: BP 174/54; PULSE 66; RESP 16; O2SAT 100
--- NOTE | 2025-03-19 13:07 | PAPNONF_PTH ---
PATIENT: Arlene Medrano LOC: [facility] U#:[id number] AGE/SX: 79/F ROOM: RE03/19/[address]: Erwin Fowler MD : 1945 BED: DIS: 03/19/2025 SPEC #: [id number] RECD: 03/19/25 13:31 STATUS: BRAYAN REQ #: [id number] VASILE: 03/19/25 13:[address]: Erwin Fowler DEPT: [facility] Cytology RECD BY: Bobbi Carlson ENTERED: 03/19/25 13:32 SP TYPE: [facility] JHONSON DR: Geovanna Anders Tissues: 1 - BODY FLUID CYTO(NOT S/U/N/EM)[facility] Procedures: BODY FLUID CYTO(NOT SPU/UR/NIP/ENDOM)[facility] Comments: [id number] (TOTAL VOLUME = 10 ml) (REFRIGERATED)
[2025-03-19 13:22] VITALS: BP 170/50; PULSE 63; RESP 16; TEMP 36.1; O2SAT 100
--- NOTE | 2025-03-19 13:23 | W.PROCNOTE ---
Date of service: 03/19/25 Time of Service: 13:24 Procedure Note Date of procedure: 03/19/25 Procedure: Right-sided thoracentesis Surgeon/Proceduralist/Physician: Erwin Fowler Procedure Diagnosis: Right-sided pleural effusion Procedure Indications: Arlene is an 79-year-old woman is being treated for colon cancer, who has a new right-sided pleural effusion. She was referred from [facility] oncology for sampling of the fluid to rule out malignant effusion. Procedure Description: I met with Arlene and her in the preprocedure area, and we reviewed the plan for a right-sided diagnostic thoracentesis today. I did perform a limited ultrasound in the preop area that demonstrated a small right-sided pleural effusion. Arlene and her had the chance to ask any other new questions. Next, we moved back to the procedure room. Arlene was assisted to the seated position, and I prepped and draped the right back. I anesthetized the skin, and the trajectory down onto the rib. I then made a small incision, and advanced a thoracentesis needle catheter system over the rib into the pleural space while aspirating. I aspirated peach colored fluid into the syringe, and gently advanced the catheter while withdrawing the needle. I fixed the syringe and obtained specimens for pleural fluid analysis. The fluid was very thick and gelatinous. Flow through the tubing was extremely poor even with repositioning. Arlene tolerated the procedure without any discomfort at all. I did fix drainage tubing, and tried to hand pump some of this fluid out of the pleural space. Again, the flow through the tubing was quite poor. I drained about 150 mL of fluid. Since she is asymptomatic, and the character of the pleural fluid was extremely atypical, in an effort to minimize any procedural complications, I felt the safest thing to do at that point was to terminate the procedure. The catheter was removed while aspirating, and a Band-Aid was used to dress the wound. She was brought back over to the day surgery unit, where a chest x-ray will be obtained.
[2025-03-19 13:57] LABS: Source: Pleural
[2025-03-19 14:17] LABS: Clarity Clear; Nucleated Cells 180 uL (0); Source Pleural
[2025-03-19 14:21] LABS: Mononuclear Cells 93 %; Polynuclear Cells 7 %
[2025-03-19 22:30] LABS: Glucose, Fluid 117 mg/dL (See Note)
[2025-03-19 22:45] LABS: Albumin, Body FLuid 1.2 g/dL (See Note)
[2025-03-21 09:49] LABS: Fluid Type Pleural; Lactate Dehydrogenase (LD), BF 99 U/L
[2025-03-21 12:43] LABS: Fluid Type Pleural; Protein,Total, BF 2.3 g/dL
[2025-03-22 11:31] LABS: Triglycerides, BF 10 mg/dL
[2025-04-01 11:37] LABS: Misc Referral (MAYO) See Comments
== END 2025-03-19 13:52 | disposition home or self-care (01) ==
PROVIDERS: Nurse Practitioner Family; PCP Nurse Practitioner Family; Visit Provider Surgery
PROC: (CPT 32554; principal; 2025-03-19 12:15)
DX: J90 Pleural effusion, not elsewhere classified (principal)
CPT/HCPCS: 32554; 82042; 84311; 87116; 87206; 71045; 81373; 83615; 83986; 84157; 84478; 87070; 87075; 87205; 88104; 89051

== ENCOUNTER 2025-04-11 10:15 | Outpatient (RCR) | payer MEDICARE, MEDICAID, SELFPAY ==
[2025-03-21] MEDS: Normal Saline Flush 10 ML SYR IVP (09:34)
[2025-03-21 09:47] LABS: Abs Immature Grans 0.02 10^3/uL (0.0-0.06); Absolute Basophil Count 0.05 10^3/uL (0.0-0.2); Absolute Eosinophil Count 0.43 10^3/uL (0.0-0.7); Absolute Lymphocyte Count 1.19 10^3/uL (1.2-3.4); Absolute Monocyte Count 0.39 10^3/uL (0.1-0.8); Absolute Neutrophil Count 4.02 10^3/uL (1.2-6.7); Basophils % 0.8 %; HCT 28.3 % (36.0-46.0); HGB 8.6 g/dL (11.2-15.7); Immature Grans % 0.3 %; Lymphocytes % 19.5 %; MCH 28.8 pg (27.0-33.0); MCHC 30.4 % (32.0-36.0); MCV 95 fL (80-95); MPV 10.1 fL (8.0-11.0); Monocytes % 6.4 %; Platelet Count 181 10^3/uL (130-400); RBC 2.99 10^6/uL (3.93-5.22); RDW-SD 54.6 fL
[2025-03-21 10:19] LABS: ALT 13 U/L (14-59); AST 13 U/L (15-37); Albumin 3.1 g/dL (3.4-5.0); Alkaline Phosphatase 109 U/L (46-116); Anion Gap 9.3 mmol/L (3-11); BUN 60 mg/dL (7-18); Bilirubin, Total 0.3 mg/dL (0.2-1.0); CO2 27.7 mmol/L (21.0-32.0); Calcium 9.3 mg/dL (8.5-10.1); Chloride 105 mmol/L (98-107); Estimated GFR 24.64 (mL/min/1.73m2); FREE T4 1.11 ng/dL (0.76-1.46); Glucose 187 mg/dL (74-106); Potassium 5.1 mmol/L (3.5-5.1); Sodium 142 mmol/L (136-145); TSH 2.57 uIU/mL (0.36-3.74); Total Protein 7.2 g/dL (6.4-8.2)
[2025-03-21 18:06] LABS: CEA 1.6 ng/mL (See Note)
[2025-04-11] MEDS: Normal Saline Flush 10 ML SYR IVP (10:29)
[2025-04-11 10:51] LABS: Abs Immature Grans 0.05 10^3/uL (0.0-0.06); Absolute Basophil Count 0.07 10^3/uL (0.0-0.2); Absolute Eosinophil Count 4.15 10^3/uL (0.0-0.7); Absolute Lymphocyte Count 1.55 10^3/uL (1.2-3.4); Absolute Monocyte Count 0.44 10^3/uL (0.1-0.8); Basophils % 0.6 %; Eosinophils % 35.6 %; HCT 29.8 % (36.0-46.0); HGB 9.3 g/dL (11.2-15.7); Immature Grans % 0.4 %; Lymphocytes % 13.3 %; MCHC 31.2 % (32.0-36.0); MCV 93 fL (80-95); MPV 10.2 fL (8.0-11.0); Monocytes % 3.8 %; Neutrophils % 46.3 %; Platelet Count 183 10^3/uL (130-400); RBC 3.21 10^6/uL (3.93-5.22); RDW 14.8 % (11.7-14.6); RDW-SD 50.3 fL; WBC 11.66 10^3/uL (4.4-10.8)
[2025-04-11 11:22] LABS: ALT 15 U/L (14-59); AST 12 U/L (15-37); Alkaline Phosphatase 117 U/L (46-116); Anion Gap 10.1 mmol/L (3-11); BUN 55 mg/dL (7-18); Bilirubin, Total 0.2 mg/dL (0.2-1.0); CO2 26.9 mmol/L (21.0-32.0); Calcium 9.2 mg/dL (8.5-10.1); Chloride 104 mmol/L (98-107); Estimated GFR 24.64 (mL/min/1.73m2); FREE T4 0.98 ng/dL (0.76-1.46); Glucose 192 mg/dL (74-106); Potassium 4.4 mmol/L (3.5-5.1); Sodium 141 mmol/L (136-145); TSH 2.62 uIU/mL (0.36-3.74); Total Protein 7.1 g/dL (6.4-8.2)
[2025-04-11 11:41] LABS: Diff Comment Agrees w/ Instrument; RBC Morphology Normal
[2025-04-11 22:58] LABS: CEA 1.3 ng/mL (See Note)
== END 2025-04-15 23:59 | disposition home or self-care (01) ==
LOC: INF 10:15
PROVIDERS: PCP Nurse Practitioner Family; Visit Provider Internal Medicine Hematology & Oncology
DX: C18.2 Malignant neoplasm of ascending colon (principal); D64.9 Anemia, unspecified; Z79.899 Other long term (current) drug therapy; Z45.2 Encounter for adjustment and management of vascular access device
CPT/HCPCS: 36591; 80053; 82378; 84439; 84443; 85025

== ENCOUNTER 2025-05-02 01:16 | Outpatient (RCR) | payer MEDICARE, MEDICAID, SELFPAY ==
[2025-05-02] MEDS: Normal Saline Flush 10 ML SYR IVP (12:59)
[2025-05-02 13:15] LABS: Abs Immature Grans 0.03 10^3/uL (0.0-0.06); HCT 29.4 % (36.0-46.0); HGB 9.1 g/dL (11.2-15.7); Immature Grans % 0.4 %; MCH 29.2 pg (27.0-33.0); MCHC 31.0 % (32.0-36.0); MCV 94 fL (80-95); MPV 9.9 fL (8.0-11.0); Platelet Count 197 10^3/uL (130-400); RBC 3.12 10^6/uL (3.93-5.22); RDW 14.9 % (11.7-14.6); RDW-SD 51.5 fL; WBC 7.09 10^3/uL (4.4-10.8)
[2025-05-02 13:47] LABS: ALT 13 U/L (14-59); AST 11 U/L (15-37); Albumin 3.0 g/dL (3.4-5.0); Alkaline Phosphatase 115 U/L (46-116); Anion Gap 10.7 mmol/L (3-11); BUN 42 mg/dL (7-18); Bilirubin, Total 0.2 mg/dL (0.2-1.0); CO2 27.3 mmol/L (21.0-32.0); Calcium 9.3 mg/dL (8.5-10.1); Chloride 103 mmol/L (98-107); Estimated GFR 27.96 (mL/min/1.73m2); Glucose 176 mg/dL (74-106); Potassium 4.4 mmol/L (3.5-5.1); Sodium 141 mmol/L (136-145); TSH 2.01 uIU/mL (0.36-3.74); Total Protein 7.1 g/dL (6.4-8.2)
[2025-05-02 22:38] LABS: CEA 1.6 ng/mL (See Note)
== END 2025-05-16 23:59 | disposition home or self-care (01) ==
LOC: INF 01:16
PROVIDERS: PCP Nurse Practitioner Family; Visit Provider Internal Medicine Hematology & Oncology
DX: C18.2 Malignant neoplasm of ascending colon (principal); Z79.899 Other long term (current) drug therapy; D64.9 Anemia, unspecified; Z45.2 Encounter for adjustment and management of vascular access device
CPT/HCPCS: 36591; 80053; 82378; 84439; 84443; 85025

== ENCOUNTER 2025-05-23 03:49 | Outpatient (RCR) | payer MEDICARE, MEDICAID, SELFPAY ==
[2025-05-23 12:42] LABS: Abs Immature Grans 0.02 10^3/uL (0.0-0.06); HCT 29.5 % (36.0-46.0); HGB 9.2 g/dL (11.2-15.7); Immature Grans % 0.3 %; MCH 29.0 pg (27.0-33.0); MCHC 31.2 % (32.0-36.0); MCV 93 fL (80-95); MPV 10.3 fL (8.0-11.0); Platelet Count 175 10^3/uL (130-400); RBC 3.17 10^6/uL (3.93-5.22); RDW 14.7 % (11.7-14.6); RDW-SD 50.5 fL; WBC 6.94 10^3/uL (4.4-10.8)
[2025-05-23 13:10] LABS: ALT 15 U/L (14-59); AST 13 U/L (15-37); Albumin 3.1 g/dL (3.4-5.0); Alkaline Phosphatase 117 U/L (46-116); Anion Gap 7.7 mmol/L (3-11); BUN 40 mg/dL (7-18); Bilirubin, Total 0.2 mg/dL (0.2-1.0); CO2 26.3 mmol/L (21.0-32.0); Calcium 9.3 mg/dL (8.5-10.1); Chloride 106 mmol/L (98-107); Estimated GFR 29.94 (mL/min/1.73m2); Glucose 188 mg/dL (74-106); Potassium 4.7 mmol/L (3.5-5.1); Sodium 140 mmol/L (136-145); TSH 2.16 uIU/mL (0.36-3.74); Total Protein 7.2 g/dL (6.4-8.2)
[2025-05-23 13:37] LABS: Vitamin B12 1503 pg/mL (193-986)
[2025-05-23] MEDS: Normal Saline Flush 10 ML SYR IVP (13:50)
[2025-05-23 13:53] LABS: Iron 38 ug/dL (50-170); Total Iron Binding Capacity 242 ug/dL (250-450); Transferrin Sat 16 % (15-50)
[2025-05-23 14:07] LABS: Ferritin 28 ng/mL (8-252)
[2025-05-23 22:51] LABS: CEA 1.2 ng/mL (See Note)
== END 2025-06-16 23:59 | disposition home or self-care (01) ==
LOC: INF 03:49
PROVIDERS: PCP Nurse Practitioner Family; Visit Provider Internal Medicine Hematology & Oncology
DX: C18.2 Malignant neoplasm of ascending colon (principal); Z79.899 Other long term (current) drug therapy
CPT/HCPCS: 36591; 80053; 82378; 82607; 82728; 83540; 83550; 84439; 84443; 85025

== ENCOUNTER 2025-07-08 07:22 | Outpatient (CLI) | payer MEDICARE, MEDICAID, SELFPAY ==
--- NOTE | 2025-07-08 | DI.MRI_ITS ---
Exam(s) MR BRAIN WO/W EXAM: MR BRAIN WO/W CLINICAL HISTORY: COGNITIVE CHANGES R41.89. TECHNIQUE: Multiplanar multisequence MRI of the brain was performed. CONTRAST MATERIAL: IV Contrast: 19 ML of Dotarem contrast administered. COMPARISON: CT CT HEAD WO from 07/04/2023 FINDINGS: VENTRICLES AND EXTRA AXIAL SPACES: Ex vacuo dilatation of the posterior horn of the left lateral ventricle. HEMORRHAGE: None. CEREBRAL PARENCHYMA: No focus of restricted diffusion to suggest acute infarct. Old right basal ganglia lacunar infarct. Large area of encephalomalacia noted in the left occipital lobe, consistent with old infarct. Is not noted on prior CT. No space-occupying lesion identified. Moderate atrophy. Moderate white matter changes consistent with microvascular disease. BRAINSTEM/CEREBELLUM: Normal. CALVARIUM: Normal. ENHANCEMENT: No suspicious enhancement identified. VISUALIZED PARANASAL SINUSES/MASTOIDS: Mucosal thickening of the ethmoid sinuses. Orbits: Unremarkable. Pituitary: Not enlarged. Vasculature: Normal flow voids. Soft tissues: Multiple scalp lesions, likely sebaceous cysts. 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 Stable appearance of old right basal ganglia lacunar infarct. DATA REPOSITORY:
[2025-07-08] MEDS: Gadoterate meglumine 20 ML SYRINGE IVP (10:36)
[2025-07-08] MEDS: Normal Saline Flush 10 ML SYR IVP (10:36)
== END 2025-07-08 07:42 ==
LOC: DI 07:22
PROVIDERS: PCP Nurse Practitioner Family; Visit Provider Nurse Practitioner Family
DX: R41.89 Other symptoms and signs involving cognitive functions and awareness (principal)
CPT/HCPCS: 70553; 96523

== ENCOUNTER 2025-07-08 10:00 | Outpatient (RCR) | payer MEDICARE, MEDICAID, SELFPAY ==
[2025-06-20 09:37] LABS: Abs Immature Grans 0.04 10^3/uL (0.0-0.06); HCT 29.5 % (36.0-46.0); HGB 9.1 g/dL (11.2-15.7); Immature Grans % 0.6 %; MCH 29.3 pg (27.0-33.0); MCHC 30.8 % (32.0-36.0); MCV 95 fL (80-95); MPV 10.2 fL (8.0-11.0); Platelet Count 179 10^3/uL (130-400); RBC 3.11 10^6/uL (3.93-5.22); RDW 15.1 % (11.7-14.6); RDW-SD 52.4 fL; WBC 7.06 10^3/uL (4.4-10.8)
[2025-06-20 10:03] LABS: ALT 15 U/L (14-59); AST 12 U/L (15-37); Albumin 3.0 g/dL (3.4-5.0); Alkaline Phosphatase 121 U/L (46-116); Anion Gap 7.3 mmol/L (3-11); BUN 24 mg/dL (7-18); Bilirubin, Total 0.3 mg/dL (0.2-1.0); CO2 26.7 mmol/L (21.0-32.0); Calcium 9.1 mg/dL (8.5-10.1); Chloride 105 mmol/L (98-107); Glucose 225 mg/dL (74-106); Potassium 4.6 mmol/L (3.5-5.1); Sodium 139 mmol/L (136-145); TSH 3.01 uIU/mL (0.36-3.74); Total Protein 7.0 g/dL (6.4-8.2)
[2025-06-20] MEDS: Normal Saline Flush 10 ML SYR IVP (11:14)
[2025-06-20 18:14] LABS: CEA 1.3 ng/mL (See Note)
[2025-07-08] MEDS: Normal Saline Flush 10 ML SYR IVP (11:45)
== END 2025-07-16 23:59 | disposition home or self-care (01) ==
LOC: INF 10:00
PROVIDERS: PCP Nurse Practitioner Family; Visit Provider Internal Medicine Hematology & Oncology
DX: C18.2 Malignant neoplasm of ascending colon (principal); Z79.899 Other long term (current) drug therapy
CPT/HCPCS: 36591; 80053; 96523; 82378; 84439; 84443; 85025

== ENCOUNTER 2025-08-01 17:00 | Observation (INO) | payer MEDICARE, MEDICAID, SELFPAY ==
[2025-08-01] VITALS (52 sets, daily range): BP systolic 144–228; BP diastolic 45–191; PULSE 55–97; RESP 10–34; TEMP 36.2–36.4; O2SAT 86–100
--- NOTE | 2025-08-01 17:00 | RT.EKG_ITS ---
APPROVED REPORT Exam: Resting ECG Reason for Exam: weakness Patient Location: E HR:70 bpm ECG Measurements Heart Rate 70 AXIS NC 181 P 136 QRSd 86 QRS 23 QT 402 T 87 QTc 433 Conclusion Sinus or ectopic atrial rhythm...P axis (-45,135) Low voltage, precordial leads...precordial leads <1.0mV Nonspecific T abnormalities, lateral leads...T <-0.10mV, I aVL V5 V6
--- NOTE | 2025-08-01 17:15 | DI.CT_ITS ---
Exam(s) CT HEAD WO EXAM: CT HEAD WO CLINICAL HISTORY: altered mental status. TECHNIQUE: Imaging Protocol: Axial computed tomography images with coronal and sagittal reformatted images were created and reviewed COMPARISON: CT CT HEAD WO/W from 12/02/[address] HEAD WO from 07/04/2023 MR MR BRAIN WO/W from 07/08/2025 FINDINGS: Ventricles and Extra axial spaces: Normal in size and morphology for the patient's age. Hemorrhage: None. Cerebral parenchyma: There are areas of decreased attenuation in the white matter consistent with chronic microvascular ischemic disease. There is a lacune again seen in the right basal ganglia. There is again seen a large area of encephalomalacia involving the left occipital lobe. No evidence of an acute territorial infarct or mass effect. Midline shift: None. Brainstem/Cerebellum: Normal. Calvarium: Normal. Visualized Paranasal sinuses/Mastoids: There is opacification of several ethmoid air cells bilaterally. The remaining visualized paranasal sinuses and mastoid air cells are clear. Soft Tissues: Unremarkable. IMPRESSION: No acute intracranial process. RADIATION DOSE DELIVERED: 861.78mGy.cm Total DLP DATA REPOSITORY: All CT scans at this facility are submitted to the National Radiology Data Registry (NRDR) Dose Index Registry (DIR) with the [employer] (ACR). RADIATION OPTIMIZATION: All CT scans at this facility use at least one of these dose optimization techniques: automated exposure control; mA and/or kV adjustment per patient size (includes targeted exams where dose is matched to clinical indication); or iterative reconstruction.
--- NOTE | 2025-08-01 17:19 | W.ED.GENAD ---
Discharge Plan Disposition Patient Disposition: Admit to [facility] Condition: Stable Discharge Details Clinical Impression: General weakness, Acute UTI, Ambulatory dysfunction Primary Care Provider: Geovanna Anders ED Provider: Patrick Medina Home Meds and New Rx's Prescriptions: No Action levothyroxine 88 mcg capsule 88 mcg PO DAILY citalopram 20 mg tablet 20 mg PO DAILY mirtazapine 7.5 mg tablet 1 tab PO HS Patient Comments: Take 1 tablet by mouth every night metoprolol succinate 100 mg Tablet Extended Release 24 Hr 100 mg PO BID Qty: 0 0RF mirtazapine 30 mg tablet 30 mg PO HS Patient Comments: TAKE ONE TABLET BY MOUTH EVERY DAY glipizide 10 mg Tablet 10 mg PO BID simvastatin 20 mg tablet 20 mg PO HS metformin 500 mg tablet extended release 24hr 500 mg PO BID Patient Comments: Take 1 tablet by mouth twice a day acetaminophen 325 mg Tablet 650 mg PO Q6H PRN PRNQty: 30 0RF furosemide 20 mg Tablet 20 mg PO DAILY Qty: 60 1RF ferrous gluconate 324 mg (38 mg iron) Tablet 324 mg PO DAILY Qty: 60 1RF lisinopril-hydrochlorothiazide .ROUTE HPI General Mode of arrival: EMS. Date/Time Provider Initiated Documentation: 08/01/25 17:11. Limitations to Documentation: no limitations. Information obtained by: patient. History of Present Illness 79 year old F presents to the emergency department with the chief complaint of general malaise , described as moderate, Patient started experiencing this day(s) (2) and it has been constant. No relieving factors improve symptom(s), No exacerbating factors reported . Patient notes denies chest pain, fever/chills and shortness of breath. Patient did receive the following treatments prior to arrival, none Related Data Home Medications ?Medication ?Instructions ?Recorded ?Confirmed glipizide 10 mg tablet 10 mg PO BID 07/12/21 08/01/25 mirtazapine 7.5 mg tablet 1 tab PO HS 05/07/22 03/19/25 metoprolol succinate 100 mg 100 mg PO BID #0 tabs 05/08/22 08/01/25 tablet,extended release 24 hr citalopram 20 mg tablet 20 mg PO DAILY 12/30/22 08/01/25 simvastatin 20 mg tablet 20 mg PO HS 12/30/22 08/01/25 metformin 500 mg tablet,extended 500 mg PO BID 06/17/23 08/01/25 release 24hr (osmotic) acetaminophen 325 mg tablet 650 mg (2 x 325 mg) PO Q6H PRN PRN 06/20/23 08/01/25 #30 tabs ferrous gluconate 324 mg (38 mg 324 mg PO DAILY #60 tabs 07/12/23 08/01/25 iron) tablet furosemide 20 mg tablet 20 mg PO DAILY #60 tabs 07/12/23 08/01/25 levothyroxine 88 mcg capsule 88 mcg PO DAILY 03/06/25 08/01/25 lisinopril-hydrochlorothiazide .ROUTE 03/19/25 mirtazapine 30 mg tablet 30 mg PO HS 08/01/25 08/01/25 Previous Rx's ?Medication ?Instructions ?Recorded metoprolol succinate 100 mg 100 mg PO BID #0 tabs 05/08/22 tablet,extended release 24 hr acetaminophen 325 mg tablet 650 mg (2 x 325 mg) PO Q6H PRN PRN 06/20/23 #30 tabs ferrous gluconate 324 mg (38 mg 324 mg PO DAILY #60 tabs 07/12/23 iron) tablet furosemide 20 mg tablet 20 mg PO DAILY #60 tabs 07/12/23 Allergies Allergy/AdvReac Type Severity Reaction Status Date / Time doxazosin (From Cardura) Allergy Intermediate Unknown Verified 08/01/25 17:14 sitagliptin (From Januvia) Allergy Intermediate Unknown Verified 08/01/25 17:14 famotidine Allergy Unknown Other (See Verified 08/01/25 17:14 Comment) empagliflozin (From Allergy Unknown Verified 08/01/25 17:14 Jardiance) General Stated Complaint: GenMedical ZAKIA: 3 Review of Systems All systems reviewed & are unremarkable except as noted in HPI and below Constitutional Constitutional: Denies chills, Denies fever(s) and Reports weakness Cardiovascular Cardiovascular: Denies chest pain and Denies dyspnea Respiratory Respiratory: Denies cough and Denies dyspnea Gastrointestinal Gastrointestinal: Denies abdominal pain, Denies nausea and Denies vomiting Genitourinary Genitourinary: Denies dysuria Integumentary/Breasts Skin/Breast: Denies rash Neurologic Neurologic: Reports weakness Exam Const General: no acute distress Orientation: alert HENMT Ears: external ears normal General nose exam: external nose normal Mouth: moist mucous membranes Eyes General: appearance normal, both eyes and all related structures Neck Neck: normal visual inspection Resp Effort & Inspection: normal respiratory effort and able to speak in complete sentences Auscultation: clear to auscultation bilaterally Cardio Jugular venous pressure: no JVD Rate: regular rate GI Palpation: soft and nontender Skin General skin exam: no rashes or lesions noted Neuro General: patient alert and patient oriented x3 Extrem General: normal to inspection Psych Mental Status: mental status grossly normal Course Vital Signs Vital signs: Vital Signs Temperature 36.4 C L 08/01/25 17:05 Pulse 73 08/01/25 17:05 Respiratory Rate 24 08/01/25 17:05 Blood Pressure 168/49 H 08/01/25 17:05 Pulse Oximetry 100 08/01/25 17:05 Temperature 36.3 C L 08/01/25 17:11 Temperature Source Oral 08/01/25 17:11 Pulse 73 08/01/25 17:11 Respiratory Rate 18 08/01/25 17:11 Blood Pressure 168/49 H 08/01/25 17:11 Blood Pressure Position Sitting 08/01/25 17:11 Pulse Oximetry 100 08/01/25 17:11 Oxygen Delivery Method Room Air 08/01/25 17:11 Oxygen Flow Rate 0 08/01/25 17:05 Medical Decision Making 79-year-old female with a history of A-fib not on anticoagulation, hypertension, diabetes who comes in from home with 2 days of feeling fatigued. She says she got the flu shot on Tuesday and her symptoms started on Tuesday. She denies any high fevers, chest pain, difficulty breathing, nausea or vomiting. She is well-appearing answering questions appropriately and is oriented x 3. She is moving all extremities well with good strength. She has no drift. No abdominal tenderness, unclear etiology for her fatigue, given her history we will check a CBC CMP and troponins. She has no cough or respiratory symptoms but has a history of pleural effusions so will obtain a cxr. She has no headaches or general findings on exam to suggest CVA but given her weakness will obtain CT head to evaluate for possible hemorrhage. Also check a UA Blood work shows no emergent changes from baseline. CT head and x-ray show no acute findings. Her urine does show evidence of UTI with positive nitrites. She is unable to get out of bed currently due to weakness even with 2 people assisting. Which is new for her. Will discuss with hospitalist about admission for antibiotics and seeing physical therapy in the morning. Differential Diagnosis Differential Diagnosis: Anemia, electrolyte abnormality Medical Records Medical records reviewed: Yes I reviewed the patient's medical records. Lab Data Lab results reviewed: Yes I reviewed the patient's lab results. ECG Data Attestation: I personally reviewed and interpreted this ECG (s) as follows: Prior ECG tracings: available for review Interpretation: sinus rate of 70 no stemi PFSH All Active Problems (Updated 08/01/25 @ 20:12 by Patrick Medina MD) Ambulatory dysfunction (Acute) Acute UTI (Acute) General weakness (Acute) Hx of falling (Acute) Medical History (Updated 08/01/25 @ 20:12 by Patrick Medina MD) Acute pain of right hip Acute UTI Osteopenia Glaucoma Trochanteric bursitis Atrial fibrillation with RVR Related hg 5.7, isolated CHF (congestive heart failure) related to Hg 5.7. Resolved. Nl echo Anemia Atrial fibrillation Leucocytosis Acute CHF DVT prophylaxis Abnormal finding on breast imaging Goiter Pleural effusion Acute dyspnea Squamous cell cancer of scalp and skin of neck Breast cancer Hypercholesterolemia HTN (hypertension) Diabetes mellitus Surgical History (Updated 03/27/25 @ 13:28 by Christa Dhillon) History of thoracentesis (~03/2025) S/P skin and subcutaneous tissue surgery S/P breast lumpectomy Social History Smoking/Tobacco Use Status: Never Smoking risk assessment performed?: Yes Alcohol Intake: never Drug use: Never Substance use type: does not use Housing: house Do you feel safe at home: Yes Do you feel safe in your relationship?: Yes
[2025-08-01 17:47] LABS: BE (Venous) 1 mmol/L (-2-3); HCO3 (Venous) 26 mmol/L (23-28); O2 Sat (Venous) 71 %; TCO2 (Venous) 25 mmol/L (24-29); pCO2 (Venous) 45 mmHg (41-51); pO2 (Venous) 38 mmHg
[2025-08-01 17:48] LABS: Abs Immature Grans 0.03 10^3/uL (0.0-0.06); HCT 29.3 % (36.0-46.0); HGB 9.3 g/dL (11.2-15.7); Immature Grans % 0.5 %; MCH 30.4 pg (27.0-33.0); MCHC 31.7 % (32.0-36.0); MCV 96 fL (80-95); MPV 9.4 fL (8.0-11.0); Platelet Count 154 10^3/uL (130-400); RBC 3.06 10^6/uL (3.93-5.22); RDW 16.5 % (11.7-14.6); RDW-SD 58.3 fL; WBC 6.36 10^3/uL (4.4-10.8)
[2025-08-01 18:16] LABS: ALT 13 U/L (14-59); AST 8 U/L (15-37); Albumin 2.9 g/dL (3.4-5.0); Alkaline Phosphatase 120 U/L (46-116); Anion Gap 10.2 mmol/L (3-11); BUN 28 mg/dL (7-18); Bilirubin, Total 0.3 mg/dL (0.2-1.0); CO2 26.8 mmol/L (21.0-32.0); Calcium 9.0 mg/dL (8.5-10.1); Chloride 104 mmol/L (98-107); Estimated GFR 23.23 (mL/min/1.73m2); Glucose 155 mg/dL (74-106); Magnesium 1.6 mg/dL (1.8-2.4); NT-proBNP 990 pg/mL (<300); Potassium 4.3 mmol/L (3.5-5.1); Sodium 141 mmol/L (136-145); Total Protein 6.8 g/dL (6.4-8.2); Troponin I 12 ng/L (<or=51)
--- NOTE | 2025-08-01 18:20 | DI.RAD_ITS ---
Exam(s) XR CHEST 2V PA LATERAL EXAM: XR CHEST 2V PA LATERAL CLINICAL HISTORY: ?pneumonia TECHNIQUE: 2D digital imaging was performed of the chest. Three images were obtained. AP and lateral views were obtained. COMPARISON: CR XR PORTABLE CHEST AP from 05/07/2022 CR XR PORTABLE CHEST AP from 03/19/2025 FINDINGS: There is a right-sided port. MEDIASTINUM: Normal. HEART: Normal. PULMONARY VASCULATURE: Normal. LUNGS: Clear. PLEURAL SPACE: No pleural effusion or pneumothorax. BONE:Within normal limits for the patient's age. OTHER FINDINGS:Normal. IMPRESSION: No acute pulmonary findings. DATA REPOSITORY: RADIATION DOSE DELIVERED:
[2025-08-01 19:39] LABS: Glucose Negative (Negative)
[2025-08-01 19:46] LABS: COVID-19 PCR Negative (Negative); RSV PCR Negative (Negative)
[2025-08-01 19:48] LABS: C & S Indicated? Yes; RBC 0-2 HPF (0-2); WBC 20-50 HPF (0-5)
[2025-08-01 19:49] LABS: Troponin I 11 ng/L (<or=51)
--- NOTE | 2025-08-01 20:25 | W.PM.HP.N ---
Date of service: 08/01/25 Time of Service: 20:25 Assessment and Plan Assessment and plan (1) Acute UTI: Start date: 08/01/25 Status: Acute Assessment and plan: This is an 79-year-old lady who may have had a UTI with minimal symptoms prior to receiving the flu shot and progressed with symptoms after the flu shot the week of presentation. She had no fever or elevated WBC but was extremely weak. She also slightly dry. She did have IV fluid resuscitation in the ED and lab will be followed up. She also had a low magnesium level which will be repleted with follow-up lab. She was initiated on IV Rocephin with urine culture performed. Patient will hopefully have urine culture results prior to discharge to convert to oral therapy as appropriate. Physical therapy will see the patient for rehabilitation from the weakness and hopefully have her ready for discharge as she improves. She has a DNR/DNI. (2) Hypomagnesemia: Start date: 08/01/25 Status: Acute Assessment and plan: IV repletion with 2 g of magnesium sulfate and follow-up lab in the morning. (3) Ambulatory dysfunction: Start date: 08/01/25 Status: Acute Assessment and plan: Patient appears to have generalized weakness exacerbated by the flu vaccine. She has no evidence of Guillain-Hinojosa? at this time and this need to be considered if she is not improving. This was a sudden onset of generalized weakness. (4) General weakness: Start date: 08/01/25 Status: Acute Assessment and plan: Rehabilitation with physical therapy. Monitor closely for advancing weakness above her lower extremities and since she had a recent flu vaccine, Guillain-Hinojosa? a needs to be considered. (5) Diabetes mellitus: Assessment and plan: Hold outpatient medical therapy and glucometers before meals and bedtime with moderate insulin sliding scale coverage. (6) CHF (congestive heart failure): Assessment and plan: Continue outpatient medical therapy with this appears to be stable. (7) Atrial fibrillation: Assessment and plan: Patient is in sinus rhythm presently and this appears to be a transient atrial fibrillation when she was severely anemic years ago. She has on metoprolol but not anticoagulation. This was discussed in 2022 with cardiology and patient decided not to take anticoagulation. (8) HTN (hypertension): Assessment and plan: Stable with continuation of modified outpatient medical therapy. (9) Hypothyroidism (acquired): Status: Chronic Assessment and plan: Check TSH and continue patient dosing of levothyroxine. History of Present Illness History of Present Illness Chief Complaint: Weakness with inability to stand after flu/COVID immunization. Narrative: This is an 79-year-old female patient who began to have weakness in her legs about 3 days prior to presentation to the ED. She had had a flu shot the previous week, about 10 days prior to presentation. The patient states that she was not feeling well prior to her flu shot but progressed to where she cannot stand the day she presented to the ED. She denies any fever or chills and has no urinary symptoms. She does have a history of breast cancer which has been treated with radiation therapy with the initial breast cancer on the left breast 5 years ago which was treated with lumpectomy and radiation but no mastectomy. 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 She is not on chemotherapy though she did have this initially with her diagnosis. She is not immunocompromised. She states that she has been eating and drinking fairly well at home with no urinary complaints as stated. She does have a history of CHF and is on diuretics chronically. She has had no weight gain or increased shortness of breath. She did receive some fluids in the ED and does have a low magnesium which will be repleted with IV magnesium. Her urinalysis was positive and will be cultured with patient initiated on Rocephin in the ED. This will be continued as an inpatient. Her other labs were unrevealing. The patient will need to see PT because of her weakness for safe ambulation and should be cleared prior to discharge. She is a full code. Review of Systems Narrative: 13 point review of systems otherwise unrevealing or stable. PFSH All Active Problems (Updated 08/01/25 @ 20:44 by Cole Alejandre) Hypothyroidism (acquired) (Chronic) Hypomagnesemia (Acute) Ambulatory dysfunction (Acute) Acute UTI (Acute) General weakness (Acute) Hx of falling (Acute) Medical History Acute pain of right hip Acute UTI Osteopenia Glaucoma Trochanteric bursitis Atrial fibrillation with RVR Related hg 5.7, isolated CHF (congestive heart failure) related to Hg 5.7. Resolved. Nl echo Anemia Atrial fibrillation Leucocytosis Acute CHF DVT prophylaxis Abnormal finding on breast imaging Goiter Pleural effusion Acute dyspnea Squamous cell cancer of scalp and skin of neck Breast cancer Hypercholesterolemia HTN (hypertension) Diabetes mellitus Surgical History History of thoracentesis (~03/2025) S/P skin and subcutaneous tissue surgery S/P breast lumpectomy Social History Smoking/Tobacco Use Status: Never Smoking risk assessment performed?: Yes Alcohol Intake: never Drug use: Never Substance use type: does not use Housing: house Do you feel safe at home: Yes Do you feel safe in your relationship?: Yes Meds Allergies and Home Medications Allergies Allergy/AdvReac Type Severity Reaction Status Date / Time doxazosin (From Cardura) Allergy Intermediate Unknown Verified 08/01/25 17:14 sitagliptin (From Januvia) Allergy Intermediate Unknown Verified 08/01/25 17:14 famotidine Allergy Unknown Other (See Verified 08/01/25 17:14 Comment) empagliflozin (From Allergy Unknown Verified 08/01/25 17:14 Jardiance) Home Medications ?Medication ?Instructions ?Recorded ?Confirmed ?Type glipizide 10 mg tablet 10 mg PO BID 07/12/21 08/01/25 History metoprolol succinate 100 mg 100 mg PO BID #0 tabs 05/08/22 08/01/25 Rx tablet,extended release 24 hr citalopram 20 mg tablet 20 mg PO DAILY 12/30/22 08/01/25 History simvastatin 20 mg tablet 20 mg PO HS 12/30/22 08/01/25 History acetaminophen 325 mg tablet 650 mg (2 x 325 mg) PO Q6H PRN PRN 06/20/23 08/01/25 Rx #30 tabs ferrous gluconate 324 mg (38 mg 324 mg PO DAILY #60 tabs 07/12/23 08/01/25 Rx iron) tablet furosemide 20 mg tablet 20 mg PO DAILY #60 tabs 07/12/23 08/01/25 Rx mirtazapine 30 mg tablet 30 mg PO HS 08/01/25 08/01/25 History levothyroxine 88 mcg tablet 88 mcg PO DAILY 08/02/25 08/02/25 History metformin 500 mg tablet 1,000 mg PO BID 08/02/25 08/02/25 History Exam Narrative Exam Narrative: General: Patient appears appropriate for age, alert and oriented x 3 and in no acute distress. She is lying comfortably in bed with her head at a 45 degree angle. HEENT: Normocephalic though abnormal scalp over the frontal and parietal aspects with atrophy from previous skin grafting with a clear line at her superior forehead. Otherwise atraumatic. Eyes with pupils equal and reactive to light symmetrically, extraocular movement intact and sclera anicteric. Oropharynx with slightly dry mucosa and fair dentition. Neck: Supple without JVD. Back: Kyphotic without CVA tenderness. Lungs: Fair aeration and clear to auscultation percussion with no focalizing rales or rhonchi. No expiratory wheeze. Breast: Exam deferred with patient having previous surgery on her right breast but no obvious deformity through her gown. Heart: Irregular rhythm and with normal rate, 3/6 systolic murmur over left renal border. No gallop or rub. Abdomen: Obese contour, soft and nontender to palpation with no palpable hepatosplenomegaly. Bowel sounds positive in all quadrants. No guarding or rebound. Genitalia/rectal: Exam deferred. Extremities: Without clubbing, cyanosis or pitting edema with lower extremities obese. Good capillary refill. Skin: Skin changes over scalp from skin grafting with dry ulcers covered with bandage posteriorly over grafting, otherwise normal color, warm and dry. Neuro: Cranial nerves II through XII gross intact, no focalizing motor deficits and no tremor. Patient able to move lower extremities but is generally weak. No Babinski. DTRs are physiologic and symmetrical. Psych: Normal affect and mood. No abnormal thought processes. Remote recent memory intact. Results Imaging Imaging Studies: EXAM: XR CHEST 2V PA LATERAL Date of exam: 08/01/2025 CLINICAL HISTORY: ?pneumonia TECHNIQUE: 2D digital imaging was performed of the chest. Three images were obtained. AP and lateral views were obtained. COMPARISON: CR XR PORTABLE CHEST AP from 05/07/2022 CR XR PORTABLE CHEST AP from 03/19/2025 FINDINGS: There is a right-sided port. MEDIASTINUM: Normal. HEART: Normal. PULMONARY VASCULATURE: Normal. LUNGS: Clear. PLEURAL SPACE: No pleural effusion or pneumothorax. BONE:Within normal limits for the patient's age. OTHER FINDINGS:Normal. IMPRESSION: No acute pulmonary findings. EXAM: XR CHEST 2V PA LATERAL CLINICAL HISTORY: ?pneumonia TECHNIQUE: 2D digital imaging was performed of the chest. Three images were obtained. AP and lateral views were obtained. COMPARISON: CR XR PORTABLE CHEST AP from 05/07/2022 CR XR PORTABLE CHEST AP from 03/19/2025 FINDINGS: There is a right-sided port. MEDIASTINUM: Normal. HEART: Normal. PULMONARY VASCULATURE: Normal. LUNGS: Clear. PLEURAL SPACE: No pleural effusion or pneumothorax. BONE:Within normal limits for the patient's age. OTHER FINDINGS:Normal. IMPRESSION: No acute pulmonary findings. Labs 08/02/25 06:03 08/02/25 06:03 Labs: Laboratory Results - last 24 hr 08/01/25 08/01/25 08/01/25 17:41 19:00 19:30 WBC 6.36 RBC 3.06 L Hgb 9.3 L Hct 29.3 L MCV 96 H MCH 30.4 MCHC 31.7 L RDW 16.5 H Plt Count 154 MPV 9.4 Immature Gran % 0.5 Neutrophils % 62.2 Lymphocytes % 15.7 Monocytes % 8.5 Eosinophils % 12.6 Basophils % 0.5 Nucleated RBC % 0.0 Absolute Neutrophils 3.96 Absolute Lymphocytes 1.00 L Absolute Monocytes 0.54 Absolute Eosinophils 0.80 H Absolute Basophils 0.03 VBG pH 7.37 VBG pCO2 45 VBG pO2 38 VBG HCO3 26 VBG Total CO2 25 VBG O2 Saturation 71 VBG Base Excess 1 VBG Lactate 1.7 Sodium 141 Potassium 4.3 Chloride 104 Carbon Dioxide 26.8 Anion Gap 10.2 BUN 28 H Creatinine 2.1 H Est GFR (CKD-EPI 2020) 23.23 Glucose 155 H Calcium 9.0 Magnesium 1.6 L Total Bilirubin 0.3 AST 8 L ALT 13 L Alkaline Phosphatase 120 H Troponin I 12 11 NT-Pro-B Natriuret Pep 990 H Total Protein 6.8 Albumin 2.9 L Urine Color Yellow Urine Clarity Sl Cloudy Urine pH 6.0 Ur Specific [place] 1.015 Urine Protein Trace Urine Ketones Negative Urine Blood Moderate H Urine Nitrite Positive H Urine Bilirubin Negative Urine Urobilinogen 0.2 Ur Leukocyte Esterase Small H Urine RBC 0-2 Urine WBC 20-50 H Ur Epithelial Cells Few Urine Crystals Negative Urine Bacteria Many Urine Casts Negative Urine Mucus Negative Urine Other Few Transitional Ur Culture Indicated? Yes Urine Glucose Negative COVID-19 Source Nasopharynx SARS-CoV-2 (PCR) Negative Influenza Type A (PCR) Negative Influenza Type B (PCR) Negative RSV (PCR) Negative 08/01/25 20:12 WBC RBC Hgb Hct MCV MCH MCHC RDW Plt Count MPV Immature Gran % Neutrophils % Lymphocytes % Monocytes % Eosinophils % Basophils % Nucleated RBC % Absolute Neutrophils Absolute Lymphocytes Absolute Monocytes Absolute Eosinophils Absolute Basophils VBG pH VBG pCO2 VBG pO2 VBG HCO3 VBG Total CO2 VBG O2 Saturation VBG Base Excess VBG Lactate Sodium Potassium Chloride Carbon Dioxide Anion Gap BUN Creatinine Est GFR (CKD-EPI 2020) Glucose Calcium Magnesium Total Bilirubin AST ALT Alkaline Phosphatase Troponin I Cancelled NT-Pro-B Natriuret Pep Total Protein Albumin Urine Color Urine Clarity Urine pH Ur Specific [place] Urine Protein Urine Ketones Urine Blood Urine Nitrite Urine Bilirubin Urine Urobilinogen Ur Leukocyte Esterase Urine RBC Urine WBC Ur Epithelial Cells Urine Crystals Urine Bacteria Urine Casts Urine Mucus Urine Other Ur Culture Indicated? Urine Glucose COVID-19 Source SARS-CoV-2 (PCR) Influenza Type A (PCR) Influenza Type B (PCR) RSV (PCR) Last Vital Signs Temp 36.3 C L 08/01/25 17:11 Pulse 73 08/01/25 17:11 Resp 18 08/01/25 17:11 BP 168/49 H 08/01/25 17:11 Pulse Ox 100 08/01/25 17:11 Time Spent Time spent with Patient: >75 minutes Time was spent: preparing to see the patient(eg.review tests), obtaining and/or reviewing separately otained hiistory, ordering medications,tests, procedures, indepentently interpreting results, counseling the patient and care coordination
[2025-08-01] MEDS: cefTRIAXone 2 GM/50 ML BAG IVPB (20:32)
--- NOTE | 2025-08-01 22:10 | W.PC.ACHO ---
Registration Status: REG ER Primary Language: Preferred Language: Wolof ED Information & Data Chief Complaint GenMedical 08/01/25 17:22 Triage Note Patient was brought in by 08/01/25 17:05 EMS with history of feeling weak since receiving the flu shot Tuesday. Patient was unable to get off her sofa today Medical / Surgical History (Last Reviewed 08/01/25 @ 20:25 by Cole Alejandre) Abnormal finding on breast imaging Acute CHF Acute dyspnea Acute pain of right hip Acute UTI Anemia Atrial fibrillation Atrial fibrillation with RVR Breast cancer CHF (congestive heart failure) Diabetes mellitus DVT prophylaxis Glaucoma Goiter HTN (hypertension) Hypercholesterolemia Leucocytosis Osteopenia Pleural effusion Squamous cell cancer of scalp and skin of neck Trochanteric bursitis (Last Reviewed 08/01/25 @ 20:25 by Cole Alejandre) History of thoracentesis (~03/2025) S/P breast lumpectomy S/P skin and subcutaneous tissue surgery Most Recent Vital Signs Temperature 36.3 C L 08/01/25 17:11 Temperature Source Oral 08/01/25 17:11 Pulse 73 08/01/25 17:11 Respiratory Rate 18 08/01/25 20:37 Respiratory Effort Normal 08/01/25 20:35 Respiratory Depth Normal 08/01/25 20:35 Respiratory Pattern Normal 08/01/25 20:35 Blood Pressure 168/49 H 08/01/25 17:11 Blood Pressure Position Sitting 08/01/25 17:11 Pulse Oximetry 100 08/01/25 17:11 Oxygen Delivery Method Room Air 08/01/25 17:11 Oxygen Flow Rate 0 08/01/25 17:05 Allergies doxazosin (From Cardura) Allergy (Intermediate, Verified 08/01/25 17:14) Unknown sitagliptin (From Januvia) Allergy (Intermediate, Verified 08/01/25 17:14) Unknown famotidine Allergy (Unknown, Verified 08/01/25 17:14) Other (See Comment) empagliflozin (From Jardiance) Allergy (Verified 08/01/25 17:14) Unknown IV IV Catheter Type [Medial Port] Port-a-cath (single) IV Catheter Gauge [Medial Port 20 ] Diagnostics 08/01/25 08/01/25 08/01/25 Range/Units 20:12 19:30 19:00 WBC (4.4-10.8) 10^3/uL RBC (3.93-5.22) 10^6/uL Hgb (11.2-15.7) g/dL Hct (36.0-46.0) % MCV (80-95) fL MCH (27.0-33.0) pg MCHC (32.0-36.0) % RDW (11.7-14.6) % Plt Count (130-400) 10^3/uL MPV (8.0-11.0) fL Immature Gran % % Neutrophils % % Lymphocytes % % Monocytes % % Eosinophils % % Basophils % % Nucleated RBC % (0.0-0.3) % Absolute Neutrophils (1.2-6.7) 10^3/uL Absolute Lymphocytes (1.2-3.4) 10^3/uL Absolute Monocytes (0.1-0.8) 10^3/uL Absolute Eosinophils (0.0-0.7) 10^3/uL Absolute Basophils (0.0-0.2) 10^3/uL VBG pH (7.31-7.41) VBG pCO2 (41-51) mmHg VBG pO2 mmHg VBG HCO3 (23-28) mmol/L VBG Total CO2 (24-29) mmol/L VBG O2 Saturation % VBG Base Excess (-2-3) mmol/L VBG Lactate (<or=2.0) mmol/L Sodium (136-145) mmol/L Potassium (3.5-5.1) mmol/L Chloride (98-107) mmol/L Carbon Dioxide (21.0-32.0) mmol/L Anion Gap (3-11) mmol/L BUN (7-18) mg/dL Creatinine (0.55-1.02) mg/dL Est GFR (CKD-EPI 2020) (mL/min/1.73m2) Glucose (74-106) mg/dL Calcium (8.5-10.1) mg/dL Magnesium (1.8-2.4) mg/dL Total Bilirubin (0.2-1.0) mg/dL AST (15-37) U/L ALT (14-59) U/L Alkaline Phosphatase (46-116) U/L Troponin I Cancelled 11 (<or=51) ng/L NT-Pro-B Natriuret Pep (<300) pg/mL Total Protein (6.4-8.2) g/dL Albumin (3.4-5.0) g/dL Urine Color Yellow (Yellow) Urine Clarity Sl Cloudy (Clear) Urine pH 6.0 (5-8) Ur Specific [place] 1.015 (1.005-1.025) Urine Protein Trace (Neg-Trace) mg/dL Urine Ketones Negative (Negative) mg/dL Urine Blood Moderate H (Negative) Urine Nitrite Positive H (Negative) Urine Bilirubin Negative (Negative) Urine Urobilinogen 0.2 (Up to 0.2) mg/dL Ur Leukocyte Esterase Small H (Negative) Urine RBC 0-2 (0-2) HPF Urine WBC 20-50 H (0-5) HPF Ur Epithelial Cells Few (Negative) HPF Urine Crystals Negative (Negative) HPF Urine Bacteria Many (Negative) HPF Urine Casts Negative (Negative) LPF Urine Mucus Negative (Negative) Urine Other Few Transitional (Negative) Ur Culture Indicated? Yes Urine Glucose Negative (Negative) mg/dL COVID-19 Source Nasopharynx SARS-CoV-2 (PCR) Negative (Negative) Influenza Type A (PCR) Negative (Negative) Influenza Type B (PCR) Negative (Negative) RSV (PCR) Negative (Negative) 08/01/25 Range/Units 17:41 WBC 6.36 (4.4-10.8) 10^3/uL RBC 3.06 L (3.93-5.22) 10^6/uL Hgb 9.3 L (11.2-15.7) g/dL Hct 29.3 L (36.0-46.0) % MCV 96 H (80-95) fL MCH 30.4 (27.0-33.0) pg MCHC 31.7 L (32.0-36.0) % RDW 16.5 H (11.7-14.6) % Plt Count 154 (130-400) 10^3/uL MPV 9.4 (8.0-11.0) fL Immature Gran % 0.5 % Neutrophils % 62.2 % Lymphocytes % 15.7 % Monocytes % 8.5 % Eosinophils % 12.6 % Basophils % 0.5 % Nucleated RBC % 0.0 (0.0-0.3) % Absolute Neutrophils 3.96 (1.2-6.7) 10^3/uL Absolute Lymphocytes 1.00 L (1.2-3.4) 10^3/uL Absolute Monocytes 0.54 (0.1-0.8) 10^3/uL Absolute Eosinophils 0.80 H (0.0-0.7) 10^3/uL Absolute Basophils 0.03 (0.0-0.2) 10^3/uL VBG pH 7.37 (7.31-7.41) VBG pCO2 45 (41-51) mmHg VBG pO2 38 mmHg VBG HCO3 26 (23-28) mmol/L VBG Total CO2 25 (24-29) mmol/L VBG O2 Saturation 71 % VBG Base Excess 1 (-2-3) mmol/L VBG Lactate 1.7 (<or=2.0) mmol/L Sodium 141 (136-145) mmol/L Potassium 4.3 (3.5-5.1) mmol/L Chloride 104 (98-107) mmol/L Carbon Dioxide 26.8 (21.0-32.0) mmol/L Anion Gap 10.2 (3-11) mmol/L BUN 28 H (7-18) mg/dL Creatinine 2.1 H (0.55-1.02) mg/dL Est GFR (CKD-EPI 2020) 23.23 (mL/min/1.73m2) Glucose 155 H (74-106) mg/dL Calcium 9.0 (8.5-10.1) mg/dL Magnesium 1.6 L (1.8-2.4) mg/dL Total Bilirubin 0.3 (0.2-1.0) mg/dL AST 8 L (15-37) U/L ALT 13 L (14-59) U/L Alkaline Phosphatase 120 H (46-116) U/L Troponin I 12 (<or=51) ng/L NT-Pro-B Natriuret Pep 990 H (<300) pg/mL Total Protein 6.8 (6.4-8.2) g/dL Albumin 2.9 L (3.4-5.0) g/dL Urine Color (Yellow) Urine Clarity (Clear) Urine pH (5-8) Ur Specific [place] (1.005-1.025) Urine Protein (Neg-Trace) mg/dL Urine Ketones (Negative) mg/dL Urine Blood (Negative) Urine Nitrite (Negative) Urine Bilirubin (Negative) Urine Urobilinogen (Up to 0.2) mg/dL Ur Leukocyte Esterase (Negative) Urine RBC (0-2) HPF Urine WBC (0-5) HPF Ur Epithelial Cells (Negative) HPF Urine Crystals (Negative) HPF Urine Bacteria (Negative) HPF Urine Casts (Negative) LPF Urine Mucus (Negative) Urine Other (Negative) Ur Culture Indicated? Urine Glucose (Negative) mg/dL COVID-19 Source SARS-CoV-2 (PCR) (Negative) Influenza Type A (PCR) (Negative) Influenza Type B (PCR) (Negative) RSV (PCR) (Negative) 08/01/25 19:30 Urine Culture - Pending Urine - Reflex from Ua Intake and Output - 24 Hour Total 08/01/25 16:15 thru 08/01/25 20:57 Intake Total 50 Balance 50 Weight 97.5 kg Intake: IV 50 Falls Risk Assessment History of Falls Previous History 08/01/25 20:35 Contributing Factors Confusion,Impairments 08/01/25 20:35 Ambulatory Aids Uses ambulatory device 08/01/25 20:35 Tubes/Lines W/no contributing factors 08/01/25 20:35 Gait Evaluation W/no contributing factors 08/01/25 20:35 Cognition Cognitive impairment 08/01/25 20:35 Fall Total Score 71 08/01/25 20:35 Level of Risk High Risk 08/01/25 20:35 Problems (Last Reviewed 08/01/25 @ 20:25 by Cole Alejandre) Acute UTI (Acute) Ambulatory dysfunction (Acute) General weakness (Acute) Hypomagnesemia (Acute) Hypothyroidism (acquired) (Chronic) v v v v v v v v v Sending and/or Receiving Nurses: Please use comment section below to note any information pertinent to the patient hand-off not included above. Information / Comments: Pt began feeling off Tuesday, woke very weak this morning, unable to rise from couch. called EMS. Pt A&Ox2, very forgetful. ED placed 20 gauge IV in R forearm before pt mentioned she has a port d/t past history of breast CA. Additional hx of HTN, DM, significant Afib. Pt could not remember why she came to ED; reported back pain. Pt denies sob or VALLADARES, is afebrile. Cannot reposition or ambulate independently at this time. Pt uses a brief; foul smelling urine. UA positive for UTI. Panus/shirlene also cleaned and and lotioned. Pt is very yeasty and exhibits redness and cracks at pannus and under breasts. Received ceftriaxone in ED, ate just now. left. Report received from:BRANDY Garcia RN
[2025-08-01] MEDS: Normal Saline Flush 10 ML SYR IVP (22:54)
[2025-08-01] MEDS: MAGNESIUM SULFATE 2 GM/50 ML BAG IV_INF (23:04)
[2025-08-01 23:15] LABS: TSH (W/Ref FT4) 3.66 uIU/mL (0.36-3.74)
[2025-08-02] VITALS (7 sets, daily range): BP systolic 120–163; BP diastolic 53–83; PULSE 72–91; RESP 15–19; TEMP 35.9–37.2; O2SAT 96–99
[2025-08-02] MEDS: Levothyroxine 88 MCG TAB PO (06:13)
[2025-08-02 06:47] LABS: HCT 30.3 % (36.0-46.0); HGB 9.7 g/dL (11.2-15.7); MCH 30.8 pg (27.0-33.0); MCHC 32.0 % (32.0-36.0); MCV 96 fL (80-95); MPV 10.1 fL (8.0-11.0); Platelet Count 161 10^3/uL (130-400); RBC 3.15 10^6/uL (3.93-5.22); RDW 16.3 % (11.7-14.6); RDW-SD 58.1 fL; WBC 7.25 10^3/uL (4.4-10.8)
[2025-08-02 07:11] LABS: ALT 12 U/L (14-59); AST 13 U/L (15-37); Albumin 2.8 g/dL (3.4-5.0); Alkaline Phosphatase 119 U/L (46-116); Anion Gap 8.8 mmol/L (3-11); BUN 23 mg/dL (7-18); Bilirubin, Total 0.3 mg/dL (0.2-1.0); CO2 28.2 mmol/L (21.0-32.0); Calcium 9.2 mg/dL (8.5-10.1); Chloride 104 mmol/L (98-107); Estimated GFR 27.96 (mL/min/1.73m2); Glucose 126 mg/dL (74-106); Magnesium 2.2 mg/dL (1.8-2.4); Potassium 4.4 mmol/L (3.5-5.1); Sodium 141 mmol/L (136-145); Total Protein 6.8 g/dL (6.4-8.2)
[2025-08-02] MEDS: Enoxaparin 30 MG/0.3 ML SYR SC (07:52)
[2025-08-02] MEDS: Ferrous Gluconate 324 MG TAB PO (07:52)
[2025-08-02] MEDS: Citalopram 20 MG TAB PO (07:52)
[2025-08-02] MEDS: Furosemide 20 MG TAB PO (07:52)
[2025-08-02] MEDS: Metoprolol CR 100 MG TABCR PO ×2 (07:52→19:55)
[2025-08-02] MEDS: Acetaminophen 325 MG TAB 650 MG PO (07:56)
[2025-08-02 08:04] LABS: Hemoglobin A1C 5.9 % (<5.7)
--- NOTE | 2025-08-02 08:45 | INITIAL_ITS ---
Date of service: 08/02/25 Time of Service: 08:46 Care Management Initial Assmt Initial Assessment Reason for Hospitalization: UTI, ambulatory disfunction Functional Status/Living Situation Patient Presentation: Arlene was awake and lying in bed when CM met with her, her Quirino was present at the bedside, both are pleasant and easily engage in conversation. Arlene had part of her scalp removed several years ago and remains deathly afraid to fall. Her reports that although her mobility is limited she still gets around the house independently. Until last night, when she became so weak she couldn't get out of bed. Same thing happened the last time she had a UTI, and needed to be hospitalized. Quirino reports that he typically provides her transportation to her doctors appointments, however lately shes needed to use a wheelchair outside the home and they have been traveling via [facility]. They live and pay land [place] to [place] [facility], though the area is referred to as [facility]. Their only child, a son, 5-6 years ago. They do not appear to have a large network of family or friends but share that they have wonderful neighbors, Misti and her , who are very supportive and often bring them the greates suppers. Arlene also has a sister that lives in [place]. PT recommends SNF vs HH PT admission for continued mobility progression,? strengthening,? ADL retraining,? and fall reduction strategies. Per Quirino, Arlene needs to be able to stand and pivot to the commode in order for him to provide the level of care she needs at home. Arlene has a good experience with SNF for STR in the past and although she does not have a qualifying stay, she is ACO attributed and CM will send referrals to ACO contracted facilities if she is agreeable to transition to STR that is out of town. Arlene currently has [facility] RN/PT services. She receives MOW and has community case management through the [facility]. She is interested in support with retirement planning and is planning to have Alla Patterson from [facility] assist her with this. 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) Instrumental Activities of Daily Living (ADLs): Independent and Requires support with Dishes/food prep and Transportation Medications Medication Management: No Issues/Barriers identified Physical Functioning/Mobility Assistive Device: Wheelchair, walker, ramp, uses rct w/c van bhupinder Advance Directives Advance Directives: Do you have an Advance Directive: Y , 08:30 AD On File at [facility]: Y 02/28/25, 08:30 Date Asked 07/07/25 07/07/25, 07:27 AD Date Reviewed 08/01/25 Today, 08:07 COLST On File at [facility] No 01/27/24, 08:54 COLST Date Scanned Code Status Resuscitation Status DNR/DNI Portal Pt does not currently have a portal and education provided: Yes Insurance Coverage/Financial Issues Insurance: Medicare Part A & B - [id number] Medicaid of [place] - [id number] Care Team Visit Care Team Role Provider Type Renetta Cheung APRN MD [facility] STAFF PHYSICIAN Geovanna Anders Primary Care Provider NURSE PRACTITIONER Oneyda Fairchild RDN, [facility] Other Providers ROVING WEIGHT GAUGER Santiago Escobedo Other Providers OTHER Samir Moncada RDN Other Providers ROVING WEIGHT GAUGER Patrick Medina MD Emergency Provider [facility] STAFF PHYSICIAN Cole Alejandre Admit Provider NON-[facility] STAFF PHYSICIAN Attending Provider Discharge Potential Discharge Needs: PCP F/U Appt Anticipated Barriers to Discharge: Medical Status Patient/Family Education Needs: Review discharge instructions, discuss Ask Me Three Transportation: Other (Dependent on dispo) Plan: Arlene will either return home with a resumption of PT/RN vs. going to rehab for strengthening prior to returning home. She will follow up with her PCP and plan of care as instructed. Transportation will be determined by disposition. If Arlene returns home, she will be transported by her via private vehicle. Arlene receives MOW and has community CM through [facility]. She works with [email or web address] and is planning to ask for support with retirement planning. She is interested in options counseling and LTM, CM will notify [facility]. CM will continue to support Arlene, her family and any discharge planning needs. Social Determinants of Health Screening Social Determinants of health last assessed in clinic: 08/02/25 Will the Patient Participate in the Screening?: Yes Do you worry about having a steady place to live?: no Problems where you live: no known problems In the past 12 months, have you had to go without electric, gas, oil or water in your home?: no 1. Within the past 12 months, we worried whether our food would run out before we got money to buy more.: Never true 2. Within the past 12 months, the food we bought just didn't last and we didn't have money to get more.: Never true Has lack of transportation kept you from medical appointments or from doing things needed for daily living?: no Has anyone in your life made you feel unsafe or unsupported?: no How hard is it for you to pay for the very basics like food, housing, medical care, and heating? Would you say it is:: Not hard at all Do you want help finding or keeping work or a job?: I do not need or want help If for any reason you need help with day-to-day activities such as bathing, preparing meals, shopping, managing finances, etc., do you get the help you need?: I get all the help I need How often do you feel lonely or isolated from those around you?: Never Do you speak a language other than Guatemalan at home?: No Does the patient want assistance with any of the above?: No PFSH All Active Problems (Updated 08/01/25 @ 20:44 by Cole Alejandre) Hypothyroidism (acquired) (Chronic) Hypomagnesemia (Acute) Ambulatory dysfunction (Acute) Acute UTI (Acute) General weakness (Acute) Hx of falling (Acute) Medical History Acute pain of right hip Acute UTI Osteopenia Glaucoma Trochanteric bursitis Atrial fibrillation with RVR Related hg 5.7, isolated CHF (congestive heart failure) related to Hg 5.7. Resolved. Nl echo Anemia Atrial fibrillation Leucocytosis Acute CHF DVT prophylaxis Abnormal finding on breast imaging Goiter Pleural effusion Acute dyspnea Squamous cell cancer of scalp and skin of neck Breast cancer Hypercholesterolemia HTN (hypertension) Diabetes mellitus Surgical History History of thoracentesis (~03/2025) S/P skin and subcutaneous tissue surgery S/P breast lumpectomy Social History Smoking/Tobacco Use Status: Never Smoking risk assessment performed?: Yes Alcohol Intake: never Drug use: Never Substance use type: does not use Housing: house Do you feel safe at home: Yes Do you feel safe in your relationship?: Yes
--- NOTE | 2025-08-02 10:54 | PT.INIE ---
PT Notes Visit Reasons: UTI, Generalized Weakness Physical Therapy Inpatient Initial Evaluation Date: 08/02/2025 Referring Doctor:? Cole Alejandre MD PT Orders: PT CONSULT: D/C Non-PT Dependent Precautions: Fall. Standard. Activity as tolerated. Highly fearful about falling. Patient Profile/Admitting Diagnosis:? Patient is a 79-year-old female patient with past medical history of falling, AF, CHF and hypothyroidism who had flu shot 11 days ago. She presented to the ED on 08/01/2025 with generalized weakness and severe fearfulness of falling/standing up in bed for the past three days now. Patient was admitted for management acute inset urinary tract infection, fenerlaized weakness, ambulatory dysfunction, and hypomagnesemia. Patient with history of generalized anxiety over standing up and walking which in the past year has been under control. PMHX: All Active Problems (Updated 08/01/25 @ 20:44 by Cole Alejandre) Hypothyroidism (acquired) (Chronic) Hypomagnesemia (Acute) Ambulatory dysfunction (Acute) Acute UTI (Acute) General weakness (Acute) Hx of falling (Acute) Medical History Acute pain of right hip Acute UTI Osteopenia Glaucoma Trochanteric bursitis Atrial fibrillation with RVR Related hg 5.7, isolatedCHF (congestive heart failure) related to Hg 5.7. Resolved. Nl echoAnemia Atrial fibrillation Leucocytosis Acute CHF DVT prophylaxis Abnormal finding on breast imaging Goiter Pleural effusion Acute dyspnea Squamous cell cancer of scalp and skin of neck Breast cancer Hypercholesterolemia HTN (hypertension) Diabetes mellitus Surgical History History of thoracentesis (~03/2025) S/P skin and subcutaneous tissue surgery S/P breast lumpectomy Social History/Home Situation: Lives with in a private home with 2 steps to enter.? Independent with short distance indorro ambulation using her 4WW prior to admission until three days from today's presentation.? does the cooking mainly and helps with bathing and grooming. Equipment Owned/DME: FWW, 4WW Subjective: Became highly anxious and cried when getting up from bed was attempted today. Stated that she wanted to try stand up but struggled and got so flustered she did not know what to do to safely transition up to standing. Once up in standing she became very nervous and panicky, and right away demanded to sit back down. Objective: General Observation: Supine in bed.? Anxious about moving out of bed. [place] present in room throughout evaluatation. Mental Status: Alert and oriented as to person, place, time, and purpose. Highly anxious which limited her ability to focus, needs to be encouraged extensively to focus to task to prevent development of panic attack during movement. Pain: Denies Vital Signs: Closely monitored by nursing staff ROM: Right Upper Extremity: Shoulder Flexion allowed up to 90 degrees. Shoulder abduction allowed up to 90 degrees. Elbow flexion WFL. Wrist flexion WFL. Functional opening and closing of hand WFL. Left Upper Extremity: Shoulder Flexion allowed up to 90 degrees. Shoulder abduction allowed up to 90 degrees. Elbow flexion WFL. Wrist flexion WFL. Functional opening and closing of hand WFL. Right Lower Extremity: Hip flexion allowed up to 90 degrees. Hip abduction allowed up to 90 degrees. Knee flexion WFL. Ankle dorsiflexion to neutral only. Ankle plantarflexion WFL. Left Lower Extremity: Hip flexion allowed up to 90 degrees. Hip abduction allowed up to 90 degrees. Knee flexion WFL. Ankle dorsiflexion to neutral only. Ankle plantarflexion WFL. Strength: Right Upper Extremity: Shoulder flexors 3-/5. Shoulder abductors 3-/5. Elbow flexors 4-/5. Elbow extensors 4-/5. Powerhouse Operator strong. Left Upper Extremity: Shoulder flexors 3-/5. Shoulder abductors 3-/5. Elbow flexors 4-/5. Elbow extensors 4-/5. Powerhouse Operator strong. Right Lower Extremity: Hip flexors 3-/5. Hip abductors 3-/5. Knee flexors 4-/5. Knee extensors 4-/5. Ankle dorsiflexors 3-/5. Ankle plantarflexors 4-/5. Left Lower Extremity: Hip flexors 3-/5. Hip abductors 3-/5. Knee flexors 4-/5. Knee extensors 4-/5. Ankle dorsiflexors 3-/5. Ankle plantarflexors 4-/5. Bed Mobility/Transfers: Maximal verbal and tactile cueing provided for use of B hands as needed for support, movement sequence, AD management, and posture to reduce fall risk and minimize pain report Supine to sit moderate assist with HOB at 30 degrees Sit to stand unable with moderate assist of with FWW in front of patient, was very anxious about falling Stand to sit unable with moderate assist of with FWW in front of patient, was very anxious about falling Sit to to stand with STEDY lift maximal assist of 2 to partially stand up to to allow gluteal pad to be pulled down for her, panicked, cried, and demanded to go back to bed Stand to sit with STEDY lift maximal assist of 2 to partially stand up to to allow gluteal pad to be pulled down for her, panicked, cried, and demanded to go back to bed Bed to reclining chair unable to panicked state Gait: Unable and unsafe at this time due to high anxiety level Balance: Static Sitting: Good Dynamic Sitting: Fair Static Standing: Unable Dynamic Standing: Unable Special Tests: Mobility Limitations Standardized Measure [facility] AM-PAC 6 clicks Basic Mobility Inpatient Short Form: Raw Score: 9? CMS Score: 81% deficit? ? ? Informed Consent/Education:? Patient was instructed in purpose of PT consult and plan of care. Agreeable to proceed with established PT POC to achieve personal goals. Assessment: Paient demonstrated panic episode and high anxiety level with attempt at standing up using the FWW and the STEDY lift. Fearfulness of falling prevented patient from achievinign mobility goals at this time. Motor planning and execution impaired by admitting diagnoses. Patient at high risk for falls and rehospitalization. May beenfit from SF placement for continued functional mobility training prir to discharge to home. Patient presents with clinical signs and symptoms consistent with current/admitting diagnoses that have resulted to mobility limitations, gait instability, generalized weakness, and overall ADL decline as demonstrated by the following impairment level findings: 1.? Decreased strength to B UE/LE major muscle groups 2.? Impaired sitting/standing balance 3.? Impaired activity tolerance 4.? Limitation of joint range of motion in B shoulders and hips 5. High anxiety from fearfulness of falling Impairments are contributing to the following functional limitations: 1.? Decline in bed mobility skills 2.? Decline in transfer skills 3.? Difficulty with ambulation without assistive device and physical assistance 4.? Increased completion time for mobility ADL performance 5.? Increased risk for falls 6.? Difficulty with managing steps alone safely Patient is assessed as a 32727 moderate complexity based on the following: History: 79-year-old female with past medical history as indicated above Examination: Demonstrable impairment in strength, balance, and mobility level with underlying impairments and functional limitations as exhibited above as well as deficit score of 81% utilizing the [facility] Mobility Inpatient Short Form Presentation: Evolving Decision Makin moderate complexity Goals: Goals X1 week 1. Supine-Sit independent 2. Sit-Supine independent 3. Sit-Stand independent 4. Stand-Sit independent with FWW 5. Bed-Chair independent with FWW 6. Chair-Bed independent with FWW 7. Independent gait on level surface with use of FWW for at least 30 feet without report of pain nor dyspnea Plan of Care/Treatment Plan: 1-2/wk for 2 weeks 7 days/week. Patient will highly benefit from skilled physical therapy services including functional mobility training, bed mobility/transfer training, gait and balance training, therapeutic exercises, therapeutic activity, caregiver/staff/family education and training 1x/day, 7 days/week x 1 week. Plan of care has been reviewed with the PULLING MACHINE OPERATOR providing the service under Physical Therapy direction. Initiate Physical Therapy intervention for strengthening, bed mobility, transfers, gait, stairs, balance training, use of assistive device. DISCHARGE RECOMMENDATIONS: SNF vs HH PT admission for continued mobility progression,? strengthening,? ADL retraining,? and fall reduction strategies.? TREATMENT CODE/TIME: 34796 x 20 minutes for 1 unit,? 53517 x 15 minutes bfor 1 unit (10:05-10:40). Thank you for the opportunity to participate in the care of this patient. Eneida Butcher PT, DPT, CLT [facility] [place], [place]
[2025-08-02] MEDS: Insulin Aspart 300 UNITS/3 ML PEN SC ×2 (12:24→17:29)
--- NOTE | 2025-08-02 13:43 | PHA.REVIEW2 ---
Pharmacy Admission Review Admission Clinical Review Admission Pharmacy Review: Hypomagnesemia (Acute) Ambulatory dysfunction (Acute) Acute UTI (Acute) General weakness (Acute) doxazosin (From Cardura) Allergy (Intermediate, Verified 08/01/25 17:14) Unknown sitagliptin (From Januvia) Allergy (Intermediate, Verified 08/01/25 17:14) Unknown famotidine Allergy (Unknown, Verified 08/01/25 17:14) Other (See Comment) empagliflozin (From Jardiance) Allergy (Verified 08/01/25 17:14) Unknown Resuscitation Status DNR/DNI Height 5 ft 7 in Weight 97.5 kg Comments Comments/Follow Ups: Follow up on home med question Pharmacy Admission Review Renal Dosing Renal Dosing: BUN 23 mg/dL (7-18) H 08/02/25 06:03 Creatinine 1.8 mg/dL (0.55-1.02) H 08/02/25 06:03 Medications needing adjustments: Reviewed (CrCl 29.33 mL/min, BUN decreased from 28 and SCr decreased from 2.1) List of meds needing interventions: Current medications are okay Anticoagulation Anticoagulation: Hgb 9.7 g/dL (11.2-15.7) L 08/02/25 06:03 Hct 30.3 % (36.0-46.0) L 08/02/25 06:03 Plt Count 161 10^3/uL (130-400) 08/02/25 06:03 Creatinine 1.8 mg/dL (0.55-1.02) H 08/02/25 06:03 DVT Prophylaxis: Reviewed (hgb increased from 9.3) Medications: Enoxaparin (30mg daily) Relevant Labs Relevant Labs: Sodium 141 mmol/L (136-145) 08/02/25 06:03 Potassium 4.4 mmol/L (3.5-5.1) 08/02/25 06:03 Chloride 104 mmol/L (98-107) 08/02/25 06:03 Magnesium 2.2 mg/dL (1.8-2.4) 08/02/25 06:03 Electrolytes, C-Reactive P, ESR: Reviewed DM Control DM Control: Glucose 126 mg/dL (74-106) H 08/02/25 06:03 Hemoglobin A1c 5.9 % (<5.7) H 08/02/25 06:03 Finger Stick Blood Glucose 161 1224 Finger Stick Blood Glucose 161 1139 Finger Stick Blood Glucose 161 1139 Finger Stick Blood Glucose 126 0830 Finger Stick Blood Glucose 126 0736 Finger Stick Blood Glucose 126 0736 DM Control: Reviewed Insulin Dosing, Diabetic Medication: has order for SS insulin Cardiac Review Cardiac Review: Troponin I Cancelled 08/01/25 20:12 NT-Pro-B Natriuret Pep 990 pg/mL (<300) H 08/01/25 17:41 BP, HR, EF%: Reviewed (BP 120/56, HR WNL) List meds needing interventions: Has orders for furosemide 20mg daily and metoprolol XL 100mg BID QTc Review QTc: Reviewed (433 from 08/01/25) IV to PO Switch IV Medications: Reviewed (ceftriaxone) Home Meds Home Med List reviewed: Intervened Relevent Home Meds Not ordered & why?: glipizide and metformin Recently filled pantoprazole but not on home med list, asked nurse to check with patient. Waiting to hear back. Current Meds Current Medication Order Review: Reviewed Pharmacy Antibiotic Review Relevant Labs: WBC 7.25 10^3/uL (4.4-10.8) 08/02/25 06:03 Temperature 37.2 C Temperature 36.1 C Temperature 36.0 C Microbiology 08/01/25 19:30 Urine Culture - Preliminary Urine - Reflex from Ua Gram negative jason Pharmacy Antibiotic Activity: C/S review and Reviewed, no change Comments: Patient is on ceftriaxone, day 1, for UTI. Comments Comments/Follow Ups: Follow up on home med question
--- NOTE | 2025-08-02 14:47 | W.PM.PROGNOT ---
Date of Service Date of service: 08/02/25 Time of Service: 14:47 Assessment and Plan Assessment and plan (1) Acute UTI: Status: Acute Assessment and plan: UTI with minimal symptoms. Continue IV Rocephin Ucx pending. (2) Hypomagnesemia: Start date: 08/01/25 Status: Acute Assessment and plan: 2.2 Trend; replete as needed. (3) Ambulatory dysfunction: Status: Acute Assessment and plan: Patient has generalized weakness ISO UTI PT eval patient states she is afraid to fall and is resistant to PT; will continue to work with her; she may need short term acute rehab as she has in the past for a similar episode. (4) Diabetes mellitus: Assessment and plan: Continue ACHS Fingersticks Glucose 126 SSI (5) CHF (congestive heart failure): Assessment and plan: Stable, continue home meds (6) Atrial fibrillation: Assessment and plan: NSR currently. Continue metoprolol. Patient declined anticoagulation meds in 2022 (7) HTN (hypertension): Assessment and plan: Chronic, stable, continue home meds (8) Hypothyroidism (acquired): Status: Chronic Assessment and plan: TSH 3.66 Subjective Subjective Patient reports: no new complaints, tolerating a regular diet, voiding w/o difficulty, bowel movement and afebrile; denies diarrhea, nausea or vomiting Exam Const General: no acute distress Orientation: alert HENMT Ears: external ears normal General nose exam: external nose normal Mouth: moist mucous membranes Eyes General: appearance normal, both eyes and all related structures Neck Neck: normal visual inspection Resp Effort & Inspection: normal respiratory effort and able to speak in complete sentences Auscultation: clear to auscultation bilaterally Cardio Jugular venous pressure: no JVD Rate: regular rate GI Palpation: soft and nontender Skin General skin exam: no rashes or lesions noted Neuro General: patient alert and patient oriented x3 Extrem General: normal to inspection Psych Mental Status: mental status grossly normal Objective Last Vital Signs Temp 37.2 C 08/02/25 11:46 Pulse 75 08/02/25 11:46 Resp 16 08/02/25 11:46 BP 120/56 L 08/02/25 11:46 Pulse Ox 96 08/02/25 11:46 Laboratory Results - last 24 hr 08/01/25 08/01/25 08/01/25 17:41 19:00 19:30 WBC 6.36 RBC 3.06 L Hgb 9.3 L Hct 29.3 L MCV 96 H MCH 30.4 MCHC 31.7 L RDW 16.5 H Plt Count 154 MPV 9.4 Immature Gran % 0.5 Neutrophils % 62.2 Lymphocytes % 15.7 Monocytes % 8.5 Eosinophils % 12.6 Basophils % 0.5 Nucleated RBC % 0.0 Absolute Neutrophils 3.96 Absolute Lymphocytes 1.00 L Absolute Monocytes 0.54 Absolute Eosinophils 0.80 H Absolute Basophils 0.03 VBG pH 7.37 VBG pCO2 45 VBG pO2 38 VBG HCO3 26 VBG Total CO2 25 VBG O2 Saturation 71 VBG Base Excess 1 VBG Lactate 1.7 Sodium 141 Potassium 4.3 Chloride 104 Carbon Dioxide 26.8 Anion Gap 10.2 BUN 28 H Creatinine 2.1 H Est GFR (CKD-EPI 2020) 23.23 Glucose 155 H Hemoglobin A1c Calcium 9.0 Magnesium 1.6 L Total Bilirubin 0.3 AST 8 L ALT 13 L Alkaline Phosphatase 120 H Troponin I 12 11 NT-Pro-B Natriuret Pep 990 H Total Protein 6.8 Albumin 2.9 L TSH 3.66 Urine Color Yellow Urine Clarity Sl Cloudy Urine pH 6.0 Ur Specific [place] 1.015 Urine Protein Trace Urine Ketones Negative Urine Blood Moderate H Urine Nitrite Positive H Urine Bilirubin Negative Urine Urobilinogen 0.2 Ur Leukocyte Esterase Small H Urine RBC 0-2 Urine WBC 20-50 H Ur Epithelial Cells Few Urine Crystals Negative Urine Bacteria Many Urine Casts Negative Urine Mucus Negative Urine Other Few Transitional Ur Culture Indicated? Yes Urine Glucose Negative COVID-19 Source Nasopharynx SARS-CoV-2 (PCR) Negative Influenza Type A (PCR) Negative Influenza Type B (PCR) Negative RSV (PCR) Negative 08/01/25 08/02/25 20:12 06:03 WBC 7.25 RBC 3.15 L Hgb 9.7 L Hct 30.3 L MCV 96 H MCH 30.8 MCHC 32.0 RDW 16.3 H Plt Count 161 MPV 10.1 Immature Gran % Neutrophils % Lymphocytes % Monocytes % Eosinophils % Basophils % Nucleated RBC % Absolute Neutrophils Absolute Lymphocytes Absolute Monocytes Absolute Eosinophils Absolute Basophils VBG pH VBG pCO2 VBG pO2 VBG HCO3 VBG Total CO2 VBG O2 Saturation VBG Base Excess VBG Lactate Sodium 141 Potassium 4.4 Chloride 104 Carbon Dioxide 28.2 Anion Gap 8.8 BUN 23 H Creatinine 1.8 H Est GFR (CKD-EPI 2020) 27.96 Glucose 126 H Hemoglobin A1c 5.9 H Calcium 9.2 Magnesium 2.2 Total Bilirubin 0.3 AST 13 L ALT 12 L Alkaline Phosphatase 119 H Troponin I Cancelled NT-Pro-B Natriuret Pep Total Protein 6.8 Albumin 2.8 L TSH Urine Color Urine Clarity Urine pH Ur Specific [place] Urine Protein Urine Ketones Urine Blood Urine Nitrite Urine Bilirubin Urine Urobilinogen Ur Leukocyte Esterase Urine RBC Urine WBC Ur Epithelial Cells Urine Crystals Urine Bacteria Urine Casts Urine Mucus Urine Other Ur Culture Indicated? Urine Glucose COVID-19 Source SARS-CoV-2 (PCR) Influenza Type A (PCR) Influenza Type B (PCR) RSV (PCR) Time Spent with Patient Time Spent with Patient: 25-34 minutes Time was spent: preparing to see the patient(eg.review tests), ordering medications,tests, procedures, referring, communicating with other health women's health care nurse practitioner, indepentently interpreting results, counseling the patient and care coordination
--- NOTE | 2025-08-02 15:30 | CHAPLAIN ---
Arlene was in bed when I visited. She was soft spoken. I thought I remembered meeting her before and her Quirino said she was here about three years ago, also with a UTI. Quirino said that Arlene is very afraid of falling so is hesitant to walk and he said this is preventing her from getting back to baseline and back home. He is staying with her today until about 2 p.m. when he needs to take care of pets at home. I explained my role and offered support.
--- NOTE | 2025-08-02 15:46 | PTTR_ITS ---
PT Notes Visit Reasons: UTI, Generalized Weakness Physical Therapy Inpatient Treatment Note Date: 08/02/2025 Precautions: Fall. Standard. Activity as tolerated. Highly fearful about falling. Subjective: Became highly anxious and cried when getting up from bed was attempted today. Stated that she wanted to try stand up but struggled and got so flustered she did not know what to do to safely transition up to standing. Once up in standing she became very nervous and panicky, and right away demanded to sit back down. Objective: General Observation: Supine in bed.? Anxious about moving out of bed. [place] present in room throughout evaluatation. Mental Status: Alert and oriented as to person, place, time, and purpose. Highly anxious which limited her ability to focus, needs to be encouraged extensively to focus to task to prevent development of panic attack during movement. Pain: Denies Vital Signs: Closely monitored by nursing staff Bed Mobility/Transfers: RETAIL MERCHANDISING COORDINATOR Ghassan was requested to assist with patient for safety Maximal verbal and tactile cueing provided for use of B hands as needed for support, movement sequence, AD management, and posture to reduce fall risk and minimize pain report Supine to sit moderate assist with HOB at 30 degrees Sit to stand unable with moderate assist of with FWW in front of patient, was very anxious about falling Stand to sit unable with moderate assist of with FWW in front of patient, was very anxious about falling Sit to to stand with STEDY lift contact guard assist of 2 to partially stand up to to allow gluteal pad to be pulled down for her, panicked, cried, and demanded to go back to bed Stand to sit with STEDY lift contact guard assist of 2 to partially stand up to to allow gluteal pad to be pulled down for her, panicked, cried, and demanded to go back to bed Bed to reclining chair unable to panicked state Sccot up in bed with minimal assist of 2 with patient able to scoot up with bed in Trendelenburg position, PT NA RETAIL MERCHANDISING COORDINATOR assisted patient minimally to desired positon in bed after THERA ACT: 10 sit to stands on her own with stand by assist of PT and RETAIL MERCHANDISING COORDINATOR Ghassan with moderate cueing for hand placement and slowed descent onto bed each time. Patient continues to demonstrate anxiety with movement but to a much significant extent compared to this morning. No panic attacks/epsiode throughout. Gait: Unable and unsafe at this time due to high anxiety level Balance: Static Sitting: Good Dynamic Sitting: Fair Static Standing: Unable Dynamic Standing: Unable Assessment: Panic episode and anxiety level considerably decreased this afternoon with sit up and stand up activities using the STEDY lift. Patient has received her first dose of antibiotics for her UTI earlier this mornng. Will definitely beenfit from continued functional mobility training whie on this admission. Plan of Care/Treatment Plan: 1-2/wk for 2 weeks 7 days/week. Patient will highly benefit from skilled physical therapy services including functional mobility training, bed mobility/transfer training, gait and balance training, therapeutic exercises, therapeutic activity, caregiver/staff/family education and training 1x/day, 7 days/week x 1 week. Plan of care has been reviewed with the RETAIL MERCHANDISING COORDINATOR providing the service under Physical Therapy direction. Initiate Physical Therapy intervention for strengthening, bed mobility, transfers, gait, stairs, balance training, use of assistive device. DISCHARGE RECOMMENDATIONS: SNF vs PT admission for continued mobility progression,? strengthening,? ADL retraining,? and fall reduction strategies.? TREATMENT CODE/TIME: 23827 x 24 minutes bfor 1 unit (15:46-16:10).
[2025-08-02] MEDS: Simvastatin 20 MG TAB PO (19:55)
[2025-08-02] MEDS: cefTRIAXone 1 GM/50 ML BAG IVPB (19:55)
[2025-08-02] MEDS: Mirtazapine 15 MG TAB 30 MG PO (19:55)
[2025-08-03] VITALS (8 sets, daily range): BP systolic 89–178; BP diastolic 51–137; PULSE 61–104; RESP 12–18; TEMP 35.9–36.9; O2SAT 95–100
[2025-08-03] MEDS: Levothyroxine 88 MCG TAB PO (05:23)
[2025-08-03 06:54] LABS: HCT 29.4 % (36.0-46.0); HGB 9.4 g/dL (11.2-15.7); MCH 30.6 pg (27.0-33.0); MCHC 32.0 % (32.0-36.0); MCV 96 fL (80-95); MPV 9.9 fL (8.0-11.0); Platelet Count 164 10^3/uL (130-400); RBC 3.07 10^6/uL (3.93-5.22); RDW 16.5 % (11.7-14.6); RDW-SD 58.4 fL; WBC 7.69 10^3/uL (4.4-10.8)
[2025-08-03 07:14] LABS: ALT 10 U/L (14-59); AST 12 U/L (15-37); Albumin 2.8 g/dL (3.4-5.0); Alkaline Phosphatase 118 U/L (46-116); Anion Gap 8.2 mmol/L (3-11); BUN 26 mg/dL (7-18); Bilirubin, Total 0.3 mg/dL (0.2-1.0); CO2 28.8 mmol/L (21.0-32.0); Calcium 9.1 mg/dL (8.5-10.1); Chloride 103 mmol/L (98-107); Estimated GFR 26.20 (mL/min/1.73m2); Glucose 161 mg/dL (74-106); Magnesium 2.0 mg/dL (1.8-2.4); Potassium 4.3 mmol/L (3.5-5.1); Sodium 140 mmol/L (136-145); Total Protein 7.1 g/dL (6.4-8.2)
[2025-08-03] MEDS: Insulin Aspart 300 UNITS/3 ML PEN SC ×3 (08:22→21:59)
[2025-08-03] MEDS: Metoprolol CR 100 MG TABCR PO ×2 (09:00→20:18)
[2025-08-03] MEDS: Furosemide 20 MG TAB PO (09:00)
[2025-08-03] MEDS: Ferrous Gluconate 324 MG TAB PO (09:00)
[2025-08-03] MEDS: Citalopram 20 MG TAB PO (09:00)
[2025-08-03] MEDS: Normal Saline Flush 10 ML SYR IVP ×2 (09:01→17:27)
[2025-08-03] MEDS: Enoxaparin 30 MG/0.3 ML SYR SC (09:03)
--- NOTE | 2025-08-03 11:07 | W.PM.PROGNOT ---
Date of Service Date of service: 08/03/25 Time of Service: 11:07 Assessment and Plan Assessment and plan (1) Acute UTI: Status: Acute Assessment and plan: UTI with minimal symptoms. Continue IV Rocephin Ucx with E.coli- sensitivity pending (2) NICOLE (acute kidney injury): Status: Acute Assessment and plan: Cr 2.1 on presentation and BUN 28 and hypotension this AM most likely pre-renal NICOLE on probable CKD IVF in the ED with subsequnet initial improvement of Cr now trending up at 1.8 LR at 125cc/hr X one liter Labs in AM (3) Hypomagnesemia: Start date: 08/01/25 Status: Acute Assessment and plan: Resolved but down trending at 2.0 ongoing trending and replete as needed. (4) Ambulatory dysfunction: Status: Acute Assessment and plan: Patient has generalized weakness ISO UTI PT eval congoing to meet transfer requirement for d/c patient states she is afraid to fall and was resistant to PT- improving today and closer to baseline - Stay was not qualifying for short term acute rehab as per CM (5) Diabetes mellitus: Assessment and plan: Continue AC & HS POC blood glucose monitoring Glucose 134 -202 ongoing SSI A1C 5.9 (6) CHF (congestive heart failure): Assessment and plan: Stable, continue home meds Last LVEF showe HFpEF LVEF > 50%- and as per point 4 (7) Atrial fibrillation: Assessment and plan: NSR currently. Ongoing metoprolol. not anticoagulated - declined anticoagulation meds in 2022 (8) HTN (hypertension): Assessment and plan: Chronic, - with worsening Cr level compred to 08/02 will hold off furosemide today and reevaluate in AM (9) Hypothyroidism (acquired): Status: Chronic Assessment and plan: TSH 3.66 On home medicine regimen (10) Hypotension: Status: Acute Assessment and plan: SB 89/60 MAP <65 with urine output < 0.5ml/kg/hour and as per point LR at 125cc/hr for one liter Ortho VS negative- increased BP form supine to standing with tachy cardia most likely d/t anxiety and fear of falling (11) On deep vein thrombosis (DVT) prophylaxis: Status: Acute Assessment and plan: On LMWH (12) Discharge planning issues: Status: Resolved Assessment and plan: Home with resumption of RN PT when able to transfer PT consult ongoing OOB to chair for meals Discussed with Dr Reed Subjective Subjective Patient reports: no new complaints, feels better, tolerating liquids well, tolerating a regular diet, no bowel movement, bowel movement (08/02) and afebrile; denies voiding w/o difficulty, diarrhea, nausea, vomiting or shortness of breath Exam Narrative Exam Narrative: Alert and oriented X 3, non-icteric sclera , slightly dry mucous membranes, no JVD, clear lungs w decreased bases, + aortic murmur, abdomen large non-distended, soft, non-tender, no CVA tenderness, no edema to lower extremities Objective Last Vital Signs Temp 35.9 C L 08/03/25 08:41 Pulse 75 08/03/25 08:41 Resp 16 08/03/25 08:41 BP 89/60 L 08/03/25 08:41 Pulse Ox 99 08/03/25 08:41 Laboratory Results - last 24 hr 08/03/25 06:30 WBC 7.69 RBC 3.07 L Hgb 9.4 L Hct 29.4 L MCV 96 H MCH 30.6 MCHC 32.0 RDW 16.5 H Plt Count 164 MPV 9.9 Sodium 140 Potassium 4.3 Chloride 103 Carbon Dioxide 28.8 Anion Gap 8.2 BUN 26 H Creatinine 1.9 H Est GFR (CKD-EPI 2020) 26.20 Glucose 161 H Calcium 9.1 Magnesium 2.0 Total Bilirubin 0.3 AST 12 L ALT 10 L Alkaline Phosphatase 118 H Total Protein 7.1 Albumin 2.8 L Time Spent with Patient Time Spent with Patient: >50 minutes Time was spent: preparing to see the patient(eg.review tests), obtaining and/or reviewing separately otained hiistory, ordering medications,tests, procedures, referring, communicating with other health health care marketing specialist, indepentently interpreting results, counseling the patient, care coordination and other
--- NOTE | 2025-08-03 12:03 | PTTR_ITS ---
PT Notes Visit Reasons: UTI, Generalized Weakness Inpatient Physical Therapy Treatment Note [facility] Date:08/03/25 PRECAUTIONS: Fall. Standard. Activity as tolerated. Highly fearful about falling. SUBJECTIVE: Pt's was present prior to rx. He stated that she will need to be able to transfer from the couch to the commode at home in [facility] for him to care for her. She typically stays on the couch. They reports that prior to admission she was ambulatory in the home with a rolling walker and that she recently had been d/c from home health physical therapy. She agreed to get up to the chair for lunch. Pt agreed to try steady lift for return to bed later in the day. OBJECTIVE: Pt was seen for BID PT today. VITALS: Nursing present and took ortho static BP in supine, sitting and standing ? Therapeutic Activities (16842j[2]): Direct one-on-one instruction in dynamic activities to improve functional performance. ? BED MOBILITY/TRANSFERS? Rolling L/R: Able to roll partially to the right (I) to help remove a pillow Supine-sit: min (A) with some verbal instruction ? Sit-stand: Min to moderate assit of 2 x 3 repititions ? Stand- sit: Min A of 2 ? Bed-Chair: Pt was able to transfer bed to chait ambulating about 5 feet with walker and min (A) of 2 ? Provided skilled cues and instruction on performance and technique throughout. ? Therapeutic Exercises (00518m[1]): Direct one-on-one instruction in therapeutic exercises to develop strength, endurance, range of motion and flexibility. ? Exercises in chair: ankle pumps x 10, FAQ x 10, marching x 10 bicep curl x 10, shoulder flexion x 10 Sitting forward without back support - reaching with UE and then alternating LE lift - x 3 Pt education: Steady lift was shown, explained and demonstrated to patient. ASSESSMENT: Pt tends to list posteriorly but can correct with verbal instructions and CG of 1 to min (A) She continues to be fearful of falling but appears to be motivated to be able to return to home. In pm she was able to work on shifting trunk forward and was able to maintain sitting balance in the chair without back support. PLAN: Continues skilled physical therapy 1-2x/day with plan as outlined in PT initial evaluation. TREATMENT CODE/TIME: Therapeutic Activities (50898r[2]): 11:35-12:00 (25 minutes) Therapeutic Exercises (91476t[1]) 14:40-14:55 (15 minutes) DISCHARGE RECOMMENDATION: SNF vs PT admission for continued mobility progression,? strengthening,? ADL retraining,? and fall reduction strategies.?
[2025-08-03] MEDS: Lactated Ringers 1,000 ML 125 ML IV (17:23)
[2025-08-03] MEDS: Mirtazapine 15 MG TAB 30 MG PO (20:18)
[2025-08-03] MEDS: cefTRIAXone 1 GM/50 ML BAG IVPB (20:18)
[2025-08-03] MEDS: Simvastatin 20 MG TAB PO (20:18)
[2025-08-04 04:23] VITALS: BP 120/70; PULSE 65; RESP 15; TEMP 36.6; O2SAT 96
[2025-08-04] MEDS: Levothyroxine 88 MCG TAB PO (06:06)
[2025-08-04 06:46] LABS: Abs Immature Grans 0.03 10^3/uL (0.0-0.06); HCT 31.4 % (36.0-46.0); HGB 9.8 g/dL (11.2-15.7); Immature Grans % 0.5 %; MCH 29.9 pg (27.0-33.0); MCHC 31.2 % (32.0-36.0); MCV 96 fL (80-95); MPV 10.1 fL (8.0-11.0); Platelet Count 166 10^3/uL (130-400); RBC 3.28 10^6/uL (3.93-5.22); RDW 16.4 % (11.7-14.6); RDW-SD 58.0 fL; WBC 6.48 10^3/uL (4.4-10.8)
[2025-08-04 07:02] LABS: Anion Gap 7.6 mmol/L (3-11); BUN 32 mg/dL (7-18); CO2 28.4 mmol/L (21.0-32.0); Calcium 9.3 mg/dL (8.5-10.1); Chloride 105 mmol/L (98-107); Estimated GFR 27.96 (mL/min/1.73m2); Glucose 167 mg/dL (74-106); Magnesium 2.0 mg/dL (1.8-2.4); Potassium 4.0 mmol/L (3.5-5.1); Sodium 141 mmol/L (136-145)
[2025-08-04 07:09] VITALS: BP 120/62; PULSE 75; RESP 18; TEMP 36.5; O2SAT 94
[2025-08-04] MEDS: Ferrous Gluconate 324 MG TAB PO (08:30)
[2025-08-04] MEDS: Insulin Aspart 300 UNITS/3 ML PEN SC ×2 (08:30→11:59)
[2025-08-04] MEDS: Normal Saline Flush 10 ML SYR IVP ×2 (08:30→12:00)
[2025-08-04] MEDS: Citalopram 20 MG TAB PO (08:30)
[2025-08-04] MEDS: Metoprolol CR 100 MG TABCR PO (08:30)
[2025-08-04] MEDS: Enoxaparin 30 MG/0.3 ML SYR SC (08:35)
[2025-08-04 11:05] VITALS: BP 161/80; PULSE 77; RESP 18; TEMP 36.5; O2SAT 99
--- NOTE | 2025-08-04 11:17 | DSE_ITS ---
Date of service: 08/04/25 Time of Service: 11:18 DS: Diagnosis Discharge Diagnosis (1) Acute UTI: Status: Acute (2) NICOLE (acute kidney injury): Status: Acute (3) Hypomagnesemia: Status: Acute (4) Ambulatory dysfunction: Status: Acute (5) Diabetes mellitus: (6) CHF (congestive heart failure): (7) Atrial fibrillation: (8) HTN (hypertension): (9) Hypothyroidism (acquired): Status: Chronic (10) Hypotension: Status: Acute Discharge Plan Disposition Patient Disposition: Home W/Home Health Services Condition: Stable Discharge Details Reason For Visit: UTI, Generalized Weakness Admit Date/Time: 08/01/25 20:43 Admit Provider: Cole Alejandre Attending Provider: Cole Alejandre Primary Care Provider: Geovanna Anders Hospital Course Hospital Course: This is an 79-year-old female patient past medical history significant for hypothyroidism, metastatic breast cancer status post lumpectomy radiation and mastectomy and skull resection presented to the emergency department with history of 3 days of weakness. She was found to have a urinary tract infection. She was able to be safely really ambulated but her rehabilitation complicated by anxiety which she has experienced in the past. Medically she remained stable. Hemodynamically stable with no fever. She was treated with 4 days of ceftriaxone IV which was sensitive to the E. coli she grew in her urine. Blood cultures remain negative. She was deemed safe for discharge to home with home health services. She will complete 3 more days of cephalexin to complete a 7- day course. She will be discharged on new home health services for PT OT and nursing. Discharge discussed with DR Cristian Collins Meds and New Rx's Prescriptions: New cephalexin 500 mg capsule 500 mg PO BID Qty: 6 0RF Continued citalopram 20 mg tablet 20 mg PO DAILY metoprolol succinate 100 mg Tablet Extended Release 24 Hr 100 mg PO BID Qty: 0 0RF mirtazapine 30 mg tablet 30 mg PO HS Patient Comments: TAKE ONE TABLET BY MOUTH EVERY DAY metformin 500 mg tablet 1,000 mg PO BID Patient Comments: TAKE TWO TABLETS BY MOUTH TWICE A DAY levothyroxine 88 mcg tablet 88 mcg PO DAILY Patient Comments: TAKE ONE TABLET BY MOUTH EVERY MORNING glipizide 10 mg Tablet 10 mg PO BID simvastatin 20 mg tablet 20 mg PO HS acetaminophen 325 mg Tablet 650 mg PO Q6H PRN PRNQty: 30 0RF furosemide 20 mg Tablet 20 mg PO DAILY Qty: 60 1RF ferrous gluconate 324 mg (38 mg iron) Tablet 324 mg PO DAILY Qty: 60 1RF Discharge Instructions Instructions: Urinary Tract Infection, Adult ED Additional Instructions: you have completed 4 days of antibiotics while hospitalized and will be given 3 more days to complete a 7 day course push fluids to stay well hydrated, drinking 6-8 glasses of water or more daily. Stand Alone Forms: Nursing Discharge Form Referrals: Geovanna Anders [Primary Care Provider, Medicine] Referral Note: Your PCP office will give you a call to make a follow up appointment, if you do not hear from your PCP please give them a call. Activity:: Activity as Tolerated Equipment/Supplies:: No Equipment Needed Diet:: As Tolerated Discharge Orders Discharge Orders: Discharge Order (Routine); Ordered 08/04/25 Ordered By: Natacha No Discharge Data Discharge Date/Time-TO BE ENTERED AT DEPARTURE: 08/04/25 12:59 DS: Summary Time Spent with Patient providing and/or coordinating discharge services: Greater than 30 minutes Status at Discharge Functional status at discharge: uses cane/walker Overall status at discharge: patient is progressing back to baseline Mental Status: mental status grossly normal Speech and Movement: speech and movement normal Mood: congruent mood Affect: normal affect Exam Const General: cooperative, comfortable, no acute distress and frail appearing Nutritional Appearance: obese Orientation: alert, awake and oriented x3 HENMT Head: other (old well healed surgical scar across top of head) Mouth: moist mucous membranes abnormal (slightly dry) Neck Neck: no JVD Resp Effort & Inspection: normal respiratory effort Auscultation: diminished lung sounds bilaterally and no wheezes Cardio Rate: regular rate Rhythm: regular rhythm GI Inspection: normal to inspection Palpation: soft Skin General skin exam: no rashes or lesions noted Neuro General: patient alert, patient awake and patient oriented x3 Extrem General: normal to inspection, full ROM and edema (lower) Laterality: bilateral Psych Mental Status: mental status grossly normal Speech and Movement: speech and movement normal Mood: congruent mood Affect: normal affect DS: Data Vitals/I&O Vitals and I&O: Vital Signs Temperature 36.5 C 08/04/25 11:05 Temperature Source Temporal Artery Scan 08/04/25 11:05 Pulse 77 08/04/25 11:05 Pulse Rhythm Regular 08/01/25 22:29 Pulse 96 H 08/01/25 22:02 Respiratory Rate 18 08/04/25 11:05 Respiratory Effort Normal, Non-Labored 08/01/25 22:29 Respiratory Depth Normal 08/01/25 22:29 Respiratory Pattern Normal 08/01/25 22:29 Blood Pressure 161/80 H 08/04/25 11:05 Blood Pressure Mean 107 08/04/25 11:05 Blood Pressure Position Sitting 08/01/25 17:11 Pulse Oximetry 99 08/04/25 11:05 Oxygen Delivery Method Room Air 08/04/25 11:05 Oxygen Flow Rate 0 08/04/25 11:05 Pain Level 2 08/04/25 04:23 Intake & Output 08/03/25 08/03/25 08/04/25 11:59 23:59 11:59 Intake Total 50 / 340 290 / 340 1360 / 1360 Output Total 450 / 450 100 / 100 Balance -400 / -110 290 / -110 1260 / 1260 Intake: IV 50 / 50 1000 / 1000 Oral 50 / 290 240 / 290 360 / 360 Output: Urine 450 / 450 100 / 100 Other: Urine Color Yellow Yellow Pale Urine Appearance Clear Clear Urine Odor Normal Normal None Comment checked and dry unknown void amount into brief repositioned pt and checked for incontinence, pt dry at this time Stool Size Moderate Stool Characteristics Soft Data Completed and Pending Labs on day of discharge: Labs from last 24 hours 08/04/25 06:20 WBC 6.48 RBC 3.28 L Hgb 9.8 L Hct 31.4 L MCV 96 H MCH 29.9 MCHC 31.2 L RDW 16.4 H Plt Count 166 MPV 10.1 Immature Gran % 0.5 Neutrophils % 64.1 Lymphocytes % 17.4 Monocytes % 6.8 Eosinophils % 10.6 Basophils % 0.6 Nucleated RBC % 0.0 Absolute Neutrophils 4.15 Absolute Lymphocytes 1.13 L Absolute Monocytes 0.44 Absolute Eosinophils 0.69 Absolute Basophils 0.04 Sodium 141 Potassium 4.0 Chloride 105 Carbon Dioxide 28.4 Anion Gap 7.6 BUN 32 H Creatinine 1.8 H Est GFR (CKD-EPI 2020) 27.96 Glucose 167 H Calcium 9.3 Magnesium 2.0 PFSH All Active Problems (Updated 08/03/25 @ 11:30 by Renetta Jonatan, SEARCH ADVERTISING STRATEGIST) On deep vein thrombosis (DVT) prophylaxis (Acute) Hypotension (Acute) NICOLE (acute kidney injury) (Acute) Hypothyroidism (acquired) (Chronic) Hypomagnesemia (Acute) Ambulatory dysfunction (Acute) Acute UTI (Acute) General weakness (Acute) Hx of falling (Acute) Medical History Acute pain of right hip Acute UTI Osteopenia Glaucoma Trochanteric bursitis Atrial fibrillation with RVR Related hg 5.7, isolated CHF (congestive heart failure) related to Hg 5.7. Resolved. Nl echo Anemia Atrial fibrillation Leucocytosis Acute CHF DVT prophylaxis Abnormal finding on breast imaging Goiter Pleural effusion Acute dyspnea Squamous cell cancer of scalp and skin of neck Breast cancer Hypercholesterolemia HTN (hypertension) Diabetes mellitus Surgical History History of thoracentesis (~03/2025) S/P skin and subcutaneous tissue surgery S/P breast lumpectomy Social History Smoking/Tobacco Use Status: Never Smoking risk assessment performed?: Yes Alcohol Intake: never Drug use: Never Substance use type: does not use Housing: house Do you feel safe at home: Yes Do you feel safe in your relationship?: Yes Time Spent with Patient Time Spent with Patient: 70-84 minutes4 Time was spent: preparing to see the patient(eg.review tests), obtaining and/or reviewing separately otained hiistory, ordering medications,tests, procedures, indepentently interpreting results and counseling the patient
--- NOTE | 2025-08-04 11:17 | PT.INTREAT ---
PT Notes Visit Reasons: UTI, Generalized Weakness Inpatient Physical Therapy Treatment Note [facility] Date:08/04/25 PRECAUTIONS: Fall. Standard. Activity as tolerated. Highly fearful about falling. SUBJECTIVE: Pt's was present for rx. He reported that he was comfortable caring for her with how she was able to get OOB and walk to the chair. OBJECTIVE: VITALS: Nursing monitored Therapeutic Activities (30641g[1]): Direct one-on-one instruction in dynamic activities to improve functional performance. ? BED MOBILITY/TRANSFERS? Supine-sit: min (A) with some verbal instruction ?(pt asked for a hand to pull herself up with) ? Sit-stand: min (A) of1 and CG of 2nd person? Stand-sit: CG of 2 ? Bed-Chair: Pt was able to transfer bed to chair ambulating about 5 feet with walker and Min A to CG of 1 with second person providing CG of 1 and holding pt's brief up ? Provided skilled cues and instruction on performance and technique throughout. ? Pt/family education: explained to amount of assist provided for transfer ASSESSMENT: Pt did better with bed mobility and short distance ambulation. Her feels comfortable caring for her at her current level of function. PLAN: Continues skilled physical therapy 1-2x/day with plan as outlined in PT initial evaluation. TREATMENT CODE/TIME: Therapeutic Activities (96104z[1]): 10:55-11:10 (20 minutes) DISCHARGE RECOMMENDATION: CORRIE PT
--- NOTE | 2025-08-04 11:29 | PDOC.HHF2F ---
Date of service: 08/04/25 Time of Service: 11:29 Home Health Referral Registered Nurse: Check all that apply Instruct on new or changed medication(s)/assess compliance: Ordered Assess for exacerbation of medical condition, instruct patient/caregivers on signs and symptoms to report for early detection: Ordered Other: Monitor BP/glucose In setting of NICOLE, Lisinopril, metformin and ibuprofen held BMP 06/23 results to PCP Physical Therapist: Check all that apply Increase strength & endurance for safe mobility at home: Ordered To design/establish home maintenance program: Ordered Fall reduction therapy program for patient with history of frequent falls: Ordered Home safety evaluation and teaching/gait training including stair management (if applicable): Ordered Home Bound Status Requires the aid of supportive device (check all that apply): Walker Patient has a condition such that leaving home is medically contraindicated (Describe): Unable to ambulate without device or one person assisting her. She requires stand by assistance. Encounter Date and Reason: I certify that a FTF encounter for this patient was performed on August 04, 2025 and that such encounter was related to the primary reason the patient requires home health services. The encounter was conducted in the following manner: By me as the certifying physician, FOOD AND BEVERAGE ASSOCIATE, PA or By an inpatient physician, FOOD AND BEVERAGE ASSOCIATE or PA during an inpatient stay who communicated findings to me, Certification And Authentication I certify that I composed the above information based on my clinical judgment relating to this patient's medical condition and, if applicable, clinical findings communicated to me by the NPP or inpatient physician who performed the FTF encounter. Name of Provider that will be monitoring home health services: Geovanna Anders
--- NOTE | 2025-08-04 11:42 | CMDISCH_ITS ---
Date of service: 08/04/25 Time of Service: 11:42 LACE Index Scoring Tool Questions: Length of Stay (in days): 3 Was the patient admitted via the E.D.?: Yes E.D. Visits: 1 Answers: Total Score: 7 Risk of Readmission: Low Risk Care Management Discharge Plan Reason for Hospitalization: UTI Discharge Plan: Arlene is discharged home with resumption of [facility] RN/PT services via RCT w/c van. She will follow up with community providers and continue per her discharge plan of care. Patient and would like support with detention planning, CM will reach out to pts community CM at [facility]. Patient/Family Education Needs: Review discharge instructions and plan to follow up after discharge. Discuss ask me three. Services Needed at Discharge: Home Health Care Services (Resume [facility] RN/PT) and Transportation (RCT w/c van, coordinated by CM)
[2025-08-04] MEDS: cefTRIAXone 1 GM/50 ML BAG IVPB (11:59)
== END 2025-08-04 12:59 | disposition home health service (06) ==
LOC: ER 20:06 → MS 22:19
PROVIDERS: Family Medicine; Nurse Practitioner Acute Care; Admitting Provider Family Medicine; Emergency Provider Emergency Medicine; PCP Nurse Practitioner Family; Responsible Provider Nurse Practitioner Acute Care; Visit Provider Family Medicine
DX: N39.0 Urinary tract infection, site not specified (principal); E83.42 Hypomagnesemia; R26.2 Difficulty in walking, not elsewhere classified; E11.22 Type 2 diabetes mellitus with diabetic chronic kidney disease; R53.1 Weakness; N18.4 Chronic kidney disease, stage 4 (severe); I50.9 Heart failure, unspecified; I13.0 Hypertensive heart and chronic kidney disease with heart failure and stage 1 through stage 4 chronic kidney disease, or unspecified chronic kidney disease; I48.0 Paroxysmal atrial fibrillation; E03.9 Hypothyroidism, unspecified; N17.9 Acute kidney failure, unspecified; I95.9 Hypotension, unspecified; Z79.899 Other long term (current) drug therapy; Z85.3 Personal history of malignant neoplasm of breast; E78.00 Pure hypercholesterolemia, unspecified; D64.9 Anemia, unspecified; B96.20 Unspecified Escherichia coli [E. coli] as the cause of diseases classified elsewhere; Z79.84 Long term (current) use of oral hypoglycemic drugs
CPT/HCPCS: 00123; 36415; 80048; 80053; 82805; 85027; 87077; 87637; 93005; 96365; 97110; 97162; 97530; 99285; 70450; 71046; 81003; 81015; 83036; 83605; 83735; 83880; 84443; 84484; 85025; 87086; 87186; 93010; 99223; 99231; 99233; 99239; G0378; J0696; J1650; J1815; J3475

== ENCOUNTER 2025-08-08 12:15 | Observation (INO) | payer MEDICARE, MEDICAID, SELFPAY ==
[2025-08-08] VITALS (38 sets, daily range): BP systolic 115–210; BP diastolic 52–113; PULSE 65–81; RESP 11–22; TEMP 36.7–36.9; O2SAT 90–100
--- NOTE | 2025-08-08 12:30 | DI.CT_ITS ---
Exam(s) CT ABDOMEN PELVIS WO EXAM: CT ABDOMEN PELVIS WO CLINICAL HISTORY: recurrent uti and weakness. TECHNIQUE: Imaging Protocol: Axial computed tomography images with coronal and sagittal reformatted images were created and reviewed. Oral: / no COMPARISON: CT CT RENAL COLIC WO from 06/19/2023 FINDINGS: Exam is limited by motion and streak artifact due to patient arm positioning as well as body habitus.. Lung Bases: Patchy densities at the left lower lobe suspicious for infection. No consolidation or significant atelectasis. There is respiratory motion. Liver: Normal density. No suspicious mass. Gallbladder and biliary tract: No radiodense calculus or biliary dilation. Pancreas: A somewhat atrophic. No abnormal calcifications or inflammatory process. Spleen: Normal. Kidneys: Normal size, contour and axis. No radiodense stones. No obstructive uropathy. No suspicious masses seen. Adrenal glands: No masses seen. Lymph nodes: Within normal limits. Vasculature: Abdominal aorta non-dilated. Soft tissues: Unremarkable. Bladder: No wall thickening. No mass or calculi. Bowel: No obstruction or bowel wall thickening. The appendix appears normal. Moderate to increased quantity of stool throughout the colon. Peritoneal cavity: No ascites. No focal collection. No mesenteric inflammatory response. Reproductive organs: Unremarkable. Bones: Unremarkable for age. No compression fractures. IMPRESSION: No acute abnormality in the abdomen or pelvis. Patchy infiltrates at the left lower lobe suspicious for pneumonitis. RADIATION DOSE DELIVERED: Total DLP DATA REPOSITORY: All CT scans at this facility are submitted to the National Radiology Data Registry (NRDR) Dose Index Registry (DIR) with the [employer] (ACR). RADIATION OPTIMIZATION: All CT scans at this facility use at least one of these dose optimization techniques: automated exposure control; mA and/or kV adjustment per patient size (includes targeted exams where dose is matched to clinical indication); or iterative reconstruction.
--- NOTE | 2025-08-08 12:30 | RT.EKG_ITS ---
APPROVED REPORT Exam: Resting ECG Reason for Exam: weakness Patient Location: E HR:71 bpm ECG Measurements Heart Rate 71 AXIS NM 208 P 68 QRSd 86 QRS 29 QT 414 T 51 QTc 450 Conclusion Sinus rhythm...normal P axis, V-rate 60- 99 Low voltage, precordial leads...precordial leads <1.0mV No Occlusion WV
--- NOTE | 2025-08-08 12:37 | DI.CT_ITS ---
Exam(s) CT LUMBAR SPINE RECONS EXAM: CT LUMBAR SPINE RECONS CLINICAL HISTORY: weakness, recurrent leg weakness. TECHNIQUE: Imaging Protocol: Axial computed tomography images with coronal and sagittal reformatted images were created and reviewed CONTRAST MATERIAL: Intravenous: Omnipaque 350 Contrast volume:structured data in ml COMPARISON: CT CT ABDOMEN PELVIS WO from 08/08/2025 FINDINGS: Bones: The last intervertebral disc space is designated the L5/S1 level for the numbering purpose of this examination. The vertebral body heights are well maintained. The bones appear osteopenic. No fracture is seen. T12-L1: No disc herniations or bulges are present. L1-2: Endplate Osteophytes which project anteriorly. L2-3: Severe loss of disc height. Circumferentially projecting osteophytes. No disc herniations or bulges are present. Facet degenerative changes. Mild right and moderate left neural foraminal narrowing. L3-4: A small endplate osteophytes and mild disc bulging. Disc height is maintained. Facet degenerative changes and ligamentous hypertrophy combine to produce [id number] central canal stenosis as well as severe left and moderate right neural foraminal narrowing. L4-5: Mild loss of disc height. Vacuum phenomena. Broad-based disc bulging. Facet degenerative changes and ligamentous hypertrophy. Mild to moderate central canal stenosis. Severe bilateral neural foraminal narrowing. Slight degenerative spondylolisthesis. L5-S1: Mild loss of disc height. Vacuum phenomenon. Facet degenerative changes. No central canal stenosis. Moderate bilateral neural foraminal narrowing. Soft Tissues: The visualized SI joints and sacrum are will maintained. The paraspinal soft tissues are unremarkable. IMPRESSION: Multilevel degenerative disc changes and facet degenerative changes causing [id number] central canal stenosis at L3-4 and L4-5. Bilateral neural foraminal narrowing present at multiple levels, greatest at L4-5. RADIATION DOSE DELIVERED: Total DLP DATA REPOSITORY: All CT scans at this facility are submitted to the National Radiology Data Registry (NRDR) Dose Index Registry (DIR) with the [employer] (ACR). RADIATION OPTIMIZATION: All CT scans at this facility use at least one of these dose optimization techniques: automated exposure control; mA and/or kV adjustment per patient size (includes targeted exams where dose is matched to clinical indication); or iterative reconstruction.
[2025-08-08 13:58] LABS: Abs Immature Grans 0.07 10^3/uL (0.0-0.06); HCT 30.9 % (36.0-46.0); HGB 9.9 g/dL (11.2-15.7); Immature Grans % 0.8 %; MCH 30.7 pg (27.0-33.0); MCHC 32.0 % (32.0-36.0); MCV 96 fL (80-95); MPV 9.5 fL (8.0-11.0); Platelet Count 185 10^3/uL (130-400); RBC 3.22 10^6/uL (3.93-5.22); RDW 16.0 % (11.7-14.6); RDW-SD 57.0 fL; WBC 8.91 10^3/uL (4.4-10.8)
[2025-08-08 14:07] LABS: Glucose 100 mg/dL (Negative)
[2025-08-08 14:17] LABS: ALT 17 U/L (14-59); AST 13 U/L (15-37); Albumin 3.1 g/dL (3.4-5.0); Alkaline Phosphatase 126 U/L (46-116); Anion Gap 8.7 mmol/L (3-11); BUN 28 mg/dL (7-18); Bilirubin, Total 0.2 mg/dL (0.2-1.0); CO2 26.3 mmol/L (21.0-32.0); Calcium 9.4 mg/dL (8.5-10.1); Chloride 104 mmol/L (98-107); Glucose 148 mg/dL (74-106); Lipase 25 U/L (<78); Potassium 4.5 mmol/L (3.5-5.1); Sodium 139 mmol/L (136-145); Total Protein 7.3 g/dL (6.4-8.2); Troponin I 11 ng/L (<or=51)
[2025-08-08 14:18] LABS: C & S Indicated? No; RBC 0-2 HPF (0-2)
--- NOTE | 2025-08-08 14:30 | DI.RAD_ITS ---
Exam(s) XR CHEST 2V PA LATERAL EXAM: XR CHEST 2V PA LATERAL CLINICAL HISTORY: question pneumonia TECHNIQUE: 2D digital imaging was performed. Two views. COMPARISON: CR XR CHEST 2V PA LATERAL from 08/01/2025 FINDINGS: Exam was performed on the stretcher. There is some overlying densities the posterior aspect of the film on the lateral view. HEART: Normal size. Aorta: Not dilated. PULMONARY VASCULATURE: Normal. MEDIASTINUM: Unremarkable. LUNGS: Streaky density seen at the left lung base on the lateral view. PLEURAL SPACE: No pleural effusion or pneumothorax. BONE:Unremarkable for age. SOFT TISSUES: Right-sided port is noted. IMPRESSION: Streaky density densities are noted at the left lung base, better seen on prior CT. DATA REPOSITORY: RADIATION DOSE DELIVERED:
[2025-08-08 15:34] LABS: Troponin I 10 ng/L (<or=51)
--- NOTE | 2025-08-08 15:45 | W.ED.GENAD ---
Discharge Plan Disposition Patient Disposition: Admit to [facility] Condition: Stable Discharge Details Clinical Impression: Debility, Pneumonitis Admit Date/Time: 08/08/25 17:23 Admit Provider: Geoffrey Foster Attending Provider: Geoffrey Foster Primary Care Provider: Geovanna Anders ED Provider: Nabeel Temple Discharge Data Discharge Date/Time-TO BE ENTERED AT DEPARTURE: 08/08/25 18:22 HPI General Date/Time Provider Initiated Documentation: 08/08/25 12:19. HPI Narrative: This 79-year-old female presents with report of weakness and unable to ambulate. She feels similarly to when she had a UTI a week ago. Her states they live 45 minutes away and she is not safe at home and he cannot take care of her. She denies any nausea or vomiting. She denies any falls or injuries. She denies any chest pain or shortness of breath. She states the weakness is in her lower legs. She denies changes or other sensation changes to his extremities. Related Data Home Medications Medication Instructions Recorded Confirmed glipizide 10 mg tablet 10 mg PO BID 07/12/21 08/08/25 metoprolol succinate 100 mg 100 mg PO BID #0 tabs 05/08/22 08/08/25 tablet,extended release 24 hr citalopram 20 mg tablet 20 mg PO DAILY 12/30/22 08/08/25 simvastatin 20 mg tablet 20 mg PO HS 12/30/22 08/08/25 acetaminophen 325 mg tablet 650 mg (2 x 325 mg) PO Q6H PRN PRN 06/20/23 08/08/25 #30 tabs ferrous gluconate 324 mg (38 mg 324 mg PO DAILY #60 tabs 07/12/23 08/08/25 iron) tablet furosemide 20 mg tablet 20 mg PO DAILY #60 tabs 07/12/23 08/08/25 mirtazapine 30 mg tablet 30 mg PO HS 08/01/25 08/08/25 levothyroxine 88 mcg tablet 88 mcg PO DAILY 08/02/25 08/08/25 metformin 500 mg tablet 1,000 mg PO BID 08/02/25 08/08/25 Previous Rx's Medication Instructions Recorded metoprolol succinate 100 mg 100 mg PO BID #0 tabs 05/08/22 tablet,extended release 24 hr acetaminophen 325 mg tablet 650 mg (2 x 325 mg) PO Q6H PRN PRN 06/20/23 #30 tabs ferrous gluconate 324 mg (38 mg 324 mg PO DAILY #60 tabs 07/12/23 iron) tablet furosemide 20 mg tablet 20 mg PO DAILY #60 tabs 07/12/23 Allergies Allergy/AdvReac Type Severity Reaction Status Date / Time doxazosin (From Cardura) Allergy Intermediate Unknown Verified 08/01/25 17:14 sitagliptin (From Januvia) Allergy Intermediate Unknown Verified 08/01/25 17:14 famotidine Allergy Unknown Other (See Verified 08/01/25 17:14 Comment) empagliflozin (From Allergy Unknown Verified 08/01/25 17:14 Jardiance) General Stated Complaint: GenMedical ZAKIA: 3 Exam Narrative Exam Narrative: Alert and oriented 79-year-old female in no acute distress pupils equal round reactive to light and accommodation no visible sign of trauma lungs are clear to auscultation cardiac rate rhythm regular no abdominal tenderness strength and sensation intact bilateral lower extremities pressure ulcer noted to right buttock sensation intact distally Course Vital Signs Vital signs: Vital Signs Temperature 36.7 C 08/08/25 12:17 Pulse 78 08/08/25 12:17 Respiratory Rate 20 08/08/25 12:17 Blood Pressure 210/75 H 08/08/25 12:17 Temperature 36.7 C 08/08/25 14:00 Pulse 78 08/08/25 14:00 Respiratory Rate 20 08/08/25 14:04 Respiratory Effort Normal 08/08/25 14:04 Respiratory Depth Normal 08/08/25 14:04 Respiratory Pattern Normal 08/08/25 14:04 Blood Pressure 210/75 H 08/08/25 14:00 Pulse Oximetry 100 08/08/25 14:00 Oxygen Delivery Method Room Air 08/08/25 14:00 Pain Level 0 08/08/25 14:00 Lab/Test Results Lab/Test Results: Laboratory Tests Range/Units 08/08/25 08/08/25 08/08/25 13:51 13:52 14:51 WBC (4.4-10.8) 10^3/uL 8.91 RBC (3.93-5.22) 10^6/uL 3.22 L Hgb (11.2-15.7) g/dL 9.9 L Hct (36.0-46.0) % 30.9 L MCV (80-95) fL 96 H MCH (27.0-33.0) pg 30.7 MCHC (32.0-36.0) % 32.0 RDW (11.7-14.6) % 16.0 H Plt Count (130-400) 10^3/uL 185 MPV (8.0-11.0) fL 9.5 Immature Gran % % 0.8 Neutrophils % % 69.8 Lymphocytes % % 14.5 Monocytes % % 5.5 Eosinophils % % 8.8 Basophils % % 0.6 Nucleated RBC % (0.0-0.3) % 0.0 Absolute Neutrophils (1.2-6.7) 10^3/uL 6.23 Absolute Lymphocytes (1.2-3.4) 10^3/uL 1.29 Absolute Monocytes (0.1-0.8) 10^3/uL 0.49 Absolute Eosinophils (0.0-0.7) 10^3/uL 0.78 H Absolute Basophils (0.0-0.2) 10^3/uL 0.05 Sodium (136-145) mmol/L 139 Potassium (3.5-5.1) mmol/L 4.5 Chloride (98-107) mmol/L 104 Carbon Dioxide (21.0-32.0) mmol/L 26.3 Anion Gap (3-11) mmol/L 8.7 BUN (7-18) mg/dL 28 H Creatinine (0.55-1.02) mg/dL 1.8 H Est GFR (CKD-EPI 2020) (mL/min/1.73m2) 27.96 Glucose (74-106) mg/dL 148 H Calcium (8.5-10.1) mg/dL 9.4 Total Bilirubin (0.2-1.0) mg/dL 0.2 AST (15-37) U/L 13 L ALT (14-59) U/L 17 Alkaline Phosphatase (46-116) U/L 126 H Troponin I (<or=51) ng/L 11 10 Total Protein (6.4-8.2) g/dL 7.3 Albumin (3.4-5.0) g/dL 3.1 L Lipase (<78) U/L 25 Urine Color (Yellow) Yellow Urine Clarity (Clear) Clear Urine pH (5-8) 6.0 Ur Specific [place] (1.005-1.025) 1.010 Urine Protein (Neg-Trace) mg/dL Negative Urine Ketones (Negative) mg/dL Negative Urine Blood (Negative) Negative Urine Nitrite (Negative) Negative Urine Bilirubin (Negative) Negative Urine Urobilinogen (Up to 0.2) mg/dL 0.2 Ur Leukocyte Esterase (Negative) Small H Urine RBC (0-2) HPF 0-2 Urine WBC (0-5) HPF 3-5 Ur Epithelial Cells (Negative) HPF Rare Urine Crystals (Negative) HPF Negative Urine Bacteria (Negative) HPF Rare Urine Casts (Negative) LPF Negative Urine Mucus (Negative) Negative Ur Culture Indicated? No Urine Glucose (Negative) mg/dL 100 H Medical Decision Making Results: Urine without evidence of obvious infection, CT abdomen and pelvis does not show acute abnormality CT lumbar spine shows degenerative changes per radiology interpretation my review hemoglobin and hematocrit stable for patient Assessment and plan: Patient without acute abnormality on testing, possible pneumonitis although no leukocytosis no hypoxia and no tachypnea so low suspicion for acute pneumonia based on my assessment. I have very low suspicion for cauda equina syndrome based on assessment it sounds like patient had a similar presentation previously. PT is ordered to do an assessment on patient I spoke with [employer] and they tell me that since they leave it for they are no longer able to perform the assessment this evening.. At this time patient is pending chest x-ray and ambulatory trial. Her states he cannot take her home secondary to weakness. Pending care management and reassessment. PT is down for assessment and will speak with Yadi, care management regarding plan. Pending chest x-ray. care transitioned to Andres Temple pending pt assessment Quality:SDOH Health Related Social Needs: Health related social needs daily activities PFSH All Active Problems (Updated 08/09/25 @ 13:03 by Lucius Dent MD) CHF (congestive heart failure) (Chronic) related to Hg 5.7. Resolved. Nl echo Non-insulin dependent type 2 diabetes mellitus (Acute) Failure to thrive in adult (Acute) Debility (Acute) Hypotension (Acute) NICOLE (acute kidney injury) (Acute) Hypothyroidism (acquired) (Chronic) Hypomagnesemia (Acute) Ambulatory dysfunction (Acute) Acute UTI (Acute) General weakness (Acute) Hx of falling (Acute) Medical History Acute pain of right hip Acute UTI Osteopenia Glaucoma Trochanteric bursitis Atrial fibrillation with RVR Related hg 5.7, isolated CHF (congestive heart failure) related to Hg 5.7. Resolved. Nl echo Anemia Atrial fibrillation Leucocytosis Acute CHF DVT prophylaxis Abnormal finding on breast imaging Goiter Pleural effusion Acute dyspnea Squamous cell cancer of scalp and skin of neck Breast cancer Hypercholesterolemia HTN (hypertension) Diabetes mellitus Surgical History History of thoracentesis (~03/2025) S/P skin and subcutaneous tissue surgery S/P breast lumpectomy Social History Smoking/Tobacco Use Status: Never Smoking risk assessment performed?: Yes Alcohol Intake: never Drug use: Never Substance use type: does not use Housing: house Do you feel safe at home: Yes Do you feel safe in your relationship?: Yes
--- NOTE | 2025-08-08 16:10 | ED.PROG_ITS ---
Date of service: 08/08/25 Time of Service: 16:10 Medical Decision Making This dictation utilizes [id number] dictation software and may contain unedited grammatical errors. Patient signed out to me by Bobbi Egan PA-C, please see her complete note, essentially this 79-year-old female is brought in with failure to thrive and weakness, she had a recent admission a couple weeks ago for UTI and was discharged 2 days later with PT and OT at home and continued failure to thrive, the brings her in and states that he cannot take care of her, her urine is clean today her CT abdomen/pelvis is negative for any abdominal surgical pathology questions and pneumonitis in the base of the lungs and we are awaiting a chest x-ray as well as PT currently assessing her with plans for PT and case management coming up with a plan. Diagnostic studies of: -Reviewed prior studies as below, labs at baseline - CXR pending. -XR Chest shows densities at L lung base - will tx for pneumonitis Interventions of: -Spoke with PT @ [id number] - the did get her to step-transfer, question if this is more dementia and anxiety related than weakness, patient did attempt to transfer and then got anxious stating I can't do it, I can't do it. PT Consulting with Care Mgmt - they will pursue placement and have PT see her tomorrow. -Spoke with Hospitalist Dr. Foster @ 0665, accepted for ED Hold Admission as there is no capacity -Given 500mg PO azithromycin to start Z-pack for pneumonitis ED Course/Assessment/Plan: 79-year-old female with debility and failure to thrive at home with home health services has not had PT at home in 4 days presents with inability to transfer at home, cannot care for her, her labs are all at baseline she has a mild pneumonitis seen on CT ABD/pelvis and chest x-ray treating with azithromycin, patient is admitted to hospitalist service for social admission with possible placement, care management is pursuing SNF referrals with potential for PT reevaluation and discharge home if she improves. Disposition of Debility, Pneumonitis. Patient verbalized understanding of the plan and return to ED criteria and engaged in shared decision making. Medical Records Medical records reviewed: Yes I reviewed the patient's medical records. Imaging Data Radiologic Study: Attestation: I personally reviewed and interpreted this imaging study as follows: Imaging: CT Scan Radiologist's impression: EXAM: CT ABDOMEN PELVIS WO CLINICAL HISTORY: recurrent uti and weakness. TECHNIQUE: Imaging Protocol: Axial computed tomography images with coronal and sagittal reformatted images were created and reviewed. Oral: / no COMPARISON: CT CT RENAL COLIC WO from 06/19/2023 FINDINGS: Exam is limited by motion and streak artifact due to patient arm positioning as well as body habitus.. Lung Bases: Patchy densities at the left lower lobe suspicious for infection. No consolidation or significant atelectasis. There is respiratory motion. Liver: Normal density. No suspicious mass. Gallbladder and biliary tract: No radiodense calculus or biliary dilation. Pancreas: A somewhat atrophic. No abnormal calcifications or inflammatory process. Spleen: Normal. Kidneys: Normal size, contour and axis. No radiodense stones. No obstructive uropathy. No suspicious masses seen. Adrenal glands: No masses seen. Lymph nodes: Within normal limits. Vasculature: Abdominal aorta non-dilated. Soft tissues: Unremarkable. Bladder: No wall thickening. No mass or calculi. Bowel: No obstruction or bowel wall thickening. The appendix appears normal. Moderate to increased quantity of stool throughout the colon. Peritoneal cavity: No ascites. No focal collection. No mesenteric inflammatory response. Reproductive organs: Unremarkable. Bones: Unremarkable for age. No compression fractures. IMPRESSION: No acute abnormality in the abdomen or pelvis. Patchy infiltrates at the left lower lobe suspicious for pneumonitis. Radiologic Study #2: Attestation: I personally reviewed and interpreted this imaging study as follows: Imaging: CT Scan Radiologist's impression: EXAM: CT LUMBAR SPINE RECONS CLINICAL HISTORY: weakness, recurrent leg weakness. TECHNIQUE: Imaging Protocol: Axial computed tomography images with coronal and sagittal reformatted images were created and reviewed CONTRAST MATERIAL: Intravenous: Omnipaque 350 Contrast volume:structured data in ml COMPARISON: CT CT ABDOMEN PELVIS WO from 08/08/2025 FINDINGS: Bones: The last intervertebral disc space is designated the L5/S1 level for the numbering purpose of this examination. The vertebral body heights are well maintained. The bones appear osteopenic. No fracture is seen. T12-L1: No disc herniations or bulges are present. L1-2: Endplate Osteophytes which project anteriorly. L2-3: Severe loss of disc height. Circumferentially projecting osteophytes. No disc herniations or bulges are present. Facet degenerative changes. Mild right and moderate left neural foraminal narrowing. L3-4: A small endplate osteophytes and mild disc bulging. Disc height is maintained. Facet degenerative changes and ligamentous hypertrophy combine to produce [id number]-[id number] central canal stenosis as well as severe left and moderate right neural foraminal narrowing. L4-5: Mild loss of disc height. Vacuum phenomena. Broad-based disc bulging. Facet degenerative changes and ligamentous hypertrophy. Mild to moderate central canal stenosis. Severe bilateral neural foraminal narrowing. Slight degenerative spondylolisthesis. L5-S1: Mild loss of disc height. Vacuum phenomenon. Facet degenerative changes. No central canal stenosis. Moderate bilateral neural foraminal narrowing. Soft Tissues: The visualized SI joints and sacrum are will maintained. The paraspinal soft tissues are unremarkable. IMPRESSION: Multilevel degenerative disc changes and facet degenerative changes causing [id number] central canal stenosis at L3-4 and L4-5. Bilateral neural foraminal narrowing present at multiple levels, greatest at L4-5. Radiologic Study #3: Attestation: I personally reviewed and interpreted this imaging study as follows: Imaging: X-Ray Radiologist's impression: EXAM: XR CHEST 2V PA LATERAL CLINICAL HISTORY: question pneumonia TECHNIQUE: 2D digital imaging was performed. Two views. COMPARISON: CR XR CHEST 2V PA LATERAL from 08/01/2025 FINDINGS: Exam was performed on the stretcher. There is some overlying densities the posterior aspect of the film on the lateral view. HEART: Normal size. Aorta: Not dilated. PULMONARY VASCULATURE: Normal. MEDIASTINUM: Unremarkable. LUNGS: Streaky density seen at the left lung base on the lateral view. PLEURAL SPACE: No pleural effusion or pneumothorax. BONE:Unremarkable for age. SOFT TISSUES: Right-sided port is noted. IMPRESSION: Streaky density densities are noted at the left lung base, better seen on prior CT. Lab Data Lab results reviewed: Yes I reviewed the patient's lab results. Labs: Laboratory Tests Range/Units 08/08/25 08/08/25 08/08/25 13:51 13:52 14:51 WBC (4.4-10.8) 10^3/uL 8.91 RBC (3.93-5.22) 10^6/uL 3.22 L Hgb (11.2-15.7) g/dL 9.9 L Hct (36.0-46.0) % 30.9 L MCV (80-95) fL 96 H MCH (27.0-33.0) pg 30.7 MCHC (32.0-36.0) % 32.0 RDW (11.7-14.6) % 16.0 H Plt Count (130-400) 10^3/uL 185 MPV (8.0-11.0) fL 9.5 Immature Gran % % 0.8 Neutrophils % % 69.8 Lymphocytes % % 14.5 Monocytes % % 5.5 Eosinophils % % 8.8 Basophils % % 0.6 Nucleated RBC % (0.0-0.3) % 0.0 Absolute Neutrophils (1.2-6.7) 10^3/uL 6.23 Absolute Lymphocytes (1.2-3.4) 10^3/uL 1.29 Absolute Monocytes (0.1-0.8) 10^3/uL 0.49 Absolute Eosinophils (0.0-0.7) 10^3/uL 0.78 H Absolute Basophils (0.0-0.2) 10^3/uL 0.05 Sodium (136-145) mmol/L 139 Potassium (3.5-5.1) mmol/L 4.5 Chloride (98-107) mmol/L 104 Carbon Dioxide (21.0-32.0) mmol/L 26.3 Anion Gap (3-11) mmol/L 8.7 BUN (7-18) mg/dL 28 H Creatinine (0.55-1.02) mg/dL 1.8 H Est GFR (CKD-EPI 2020) (mL/min/1.73m2) 27.96 Glucose (74-106) mg/dL 148 H Calcium (8.5-10.1) mg/dL 9.4 Total Bilirubin (0.2-1.0) mg/dL 0.2 AST (15-37) U/L 13 L ALT (14-59) U/L 17 Alkaline Phosphatase (46-116) U/L 126 H Troponin I (<or=51) ng/L 11 10 Total Protein (6.4-8.2) g/dL 7.3 Albumin (3.4-5.0) g/dL 3.1 L Lipase (<78) U/L 25 Urine Color (Yellow) Yellow Urine Clarity (Clear) Clear Urine pH (5-8) 6.0 Ur Specific [place] (1.005-1.025) 1.010 Urine Protein (Neg-Trace) mg/dL Negative Urine Ketones (Negative) mg/dL Negative Urine Blood (Negative) Negative Urine Nitrite (Negative) Negative Urine Bilirubin (Negative) Negative Urine Urobilinogen (Up to 0.2) mg/dL 0.2 Ur Leukocyte Esterase (Negative) Small H Urine RBC (0-2) HPF 0-2 Urine WBC (0-5) HPF 3-5 Ur Epithelial Cells (Negative) HPF Rare Urine Crystals (Negative) HPF Negative Urine Bacteria (Negative) HPF Rare Urine Casts (Negative) LPF Negative Urine Mucus (Negative) Negative Ur Culture Indicated? No Urine Glucose (Negative) mg/dL 100 H Discharge Plan Disposition Patient Disposition: Admit to [facility] Condition: Stable Discharge Details Clinical Impression: Debility, Pneumonitis Admit Date/Time: 08/08/25 17:23 Admit Provider: Geoffrey Foster Attending Provider: Geoffrey Foster Primary Care Provider: Geovanna Anders ED Provider: Nabeel Temple
--- NOTE | 2025-08-08 16:50 | PT.INIE ---
PT Notes Visit Reasons: [place]-Weakness Inpatient Physical Therapy Evaluation Emergency Room Date: 08/09/2025 Referring Doctor: DIEGO Beard PT Orders: PT CONSULT: Safety consult for discharge Precautions: fall risk, standard Patient Profile/Admitting Diagnosis: Pt is an 79 yo female who presented to the ED 4 days after discharge from hospitalon 08/03/2025. Pt presented after was unable to get her off the couch this am. In the emergency department the patient was noted as having a normal physical exam, normal vital signs, normal CBC, normal CMP, normal UA, negative abdominal/pelvis CT, normal lumbar spine CT and a negative chest x-ray. PT consult placed. PMHX:CHF (congestive heart failure) (Chronic) related to Hg 5.7. Resolved. Nl echo Non-insulin dependent type 2 diabetes mellitus (Acute) Failure to thrive in adult (Acute) Pneumonitis (Acute) Debility (Acute) Hypotension (Acute) NICOLE (acute kidney injury) (Acute) Hypothyroidism (acquired) (Chronic) Hypomagnesemia (Acute) Ambulatory dysfunction (Acute) Acute UTI (Acute) General weakness (Acute) Hx of falling (Acute) Medical History Acute pain of right hip Acute UTI Osteopenia Glaucoma Trochanteric bursitis Atrial fibrillation with RVR Related hg 5.7, isolatedCHF (congestive heart failure) related to Hg 5.7. Resolved. Nl echoAnemia Atrial fibrillation Leucocytosis Acute CHF DVT prophylaxis Abnormal finding on breast imaging Goiter Pleural effusion Acute dyspnea Squamous cell cancer of scalp and skin of neck Breast cancer Hypercholesterolemia HTN (hypertension) Diabetes mellitus Surgical History History of thoracentesis (~03/2025) S/P skin and subcutaneous tissue surgery S/P breast lumpectomy Social History/Home Situation: lives in home with her with ramp to enter. Pt utilizes [facility] for all appointments. She sleeps on the couch and has a commode next to her. Independent with short distance indoor ambulation using her 4WW until 2 weeks prior to admission. does the cooking and helps with bathing and grooming until recently. She has a dog. Equipment Owned/DME:4WW, FWW, commode,ramp to enter Subjective: Pt initially stated she could not get up however with encouragement and calm approach she was able to sit at edge of stretcher and perform standing x 2 with FWW. reports HHPT did not come in. He states she only saw a Nurse on Tuesday after discharge from hospital on Tuesday. Objective: [] General Observation: elderly female igor position on stretcher in ED, present Mental Status:Alert Ox3 , cooperative but fearful, able to follow instructions with calm approach, agreeable to participate in assessment Pain: denied Vital Signs: monitored by RN in ED ROM: Right Upper Extremity: WFL Left Upper Extremity: WFL Right Lower Extremity: WFL except DF to neutral with knee extension Left Lower Extremity: WFL except DF to Neutral with knee extension Strength: Right Upper Extremity: grossly 4/5 Left Upper Extremity: grossly 4/5 Right Lower Extremity: grossly 4-/5 Left Lower Extremity:grossly 4-/5 Sensation: intact Bed Mobility/Transfers: [] supine to sit : mod A of 2 sit to supine: Min A of 2 sit to stand at FWW: mod A of 2 stand to sit: CGA of 2 surface to surface: Unable to perform d/t fear, anxiety Gait: unable Balance: [] Static Sitting: poor+ Dynamic Sitting:poor Static Standing: Poor Dynamic Standing:unable Special Tests: Mobility Limitations Standardized Measure [facility]-P[facility] 6 clicks Basic Mobility Inpatient Short Form: Raw Score: 11 CMS Score:76.75% deficit Informed Consent/Education: Patient instructed in purpose of PT consult and plan of care. Assessment: Patient is a 79 year old female referred to physical therapy services with the diagnosis of failure to thrive. Patient presents with clinical signs and symptoms consistent with admitting diagnosis, as demonstrated by the following impairment level findings: 1. impaired strength BLE/BUE musculature 2. impaired balance reactions in sit and stand 3. impaired functional activity tolerance 4. impaired B dorsiflexion L>R 5. fearfulness and anxiety with movements Impairments are contributing to the following functional limitations: 1. AMPAC score of 11 indicating high risk readmission if discharge to community 2. decline in functional transfers 3. decline in bed mobility 4. unable to ambulate with FWW 5. dependent for ADL care 6. High risk for falls Patient is assessed as a Moderate [id number] complexity based on the following: History: 79 yo female with complex PMHx and comorbidities Examination: as stated above Presentation:stable Decision Making:moderate Goals: Goals X1 week 1. Supine-Sit supervision 2. Sit-Supine supervision 3. Sit-Stand CGA 4. Stand-Sit CGA 5. Bed-Chair CGA with FWW 6. Chair-Bed CGA with FWW 7. amb with FWW CGA >25 feet Plan of Care/Treatment Plan: 1-2x/day, 7 days/week x 1 week. Plan of care has been reviewed with the CARDIOVASCULAR DISEASE SPECIALIST providing the service under Physical Therapy direction. Initiate Physical Therapy intervention for strengthening, bed mobility, transfers, gait, stairs, balance training, use of assistive device. DISCHARGE RECOMMENDATIONS: unsafe for discharge to home at this time. Pt would benefit from short term SNF vs Home with HHPT pending progress toward goals. TREATMENT CODE/TIME: 59058/ [id number]
--- NOTE | 2025-08-08 17:23 | W.PM.HP.N ---
Date of service: 08/08/25 Time of Service: 17:24 Assessment and Plan Assessment and plan (1) Failure to thrive in adult: Status: Acute Assessment and plan: - Patient again presents to the hospital with generalized weakness though this time there is no medical cause - Was evaluated by physical therapy and determined to be unsafe for discharge home - Will continue to work with physical therapy on regaining strength - Greatly appreciate care management assistance and potential placement for patient (2) Pneumonitis: Status: Acute Assessment and plan: - Chest CT in the emergency department - Emergency room provider started azithromycin - Will not continue as patient is not complaining of any cough, does not have increased respiratory rate, oxygen requirements or leukocytosis (3) Hypothyroidism (acquired): Status: Chronic Assessment and plan: - Continue home Synthroid (4) Non-insulin dependent type 2 diabetes mellitus: Status: Acute Assessment and plan: - Continue home metformin and glipizide (5) CHF (congestive heart failure): Status: Chronic Assessment and plan: - Continue home metoprolol succinate twice daily, simvastatin 20, Lasix 20 History of Present Illness History of Present Illness Chief Complaint: unable to ambulate Narrative: 79-year-old female with a past medical history of [id number] type 2 diabetes, CHF, A-fib, hypertension, hypothyroidism and frequent UTIs and hospitalizations for ambulatory dysfunction who presents to the emergency department complaints of generalized weakness. Patient states that she is weak and unable to ambulate and feels similar to when she had a UTI about a week ago. She presented the emergency room with her who states that he is unable to take care of her and that she is unsafe to come home. She denies any fever, headache, lightheadedness, dizziness, chest pain, nausea vomiting or diarrhea. In the emergency department the patient was noted as having a normal physical exam, normal vital signs, normal CBC, normal CMP, normal UA, negative abdominal/pelvis CT, normal lumbar spine CT and a negative chest x-ray. However, patient was evaluated by physical therapy who determined the patient was not able to ambulate was therefore unsafe to discharge home. Therefore, emergency room provider paged hospitalist for admission for patient with failure to thrive. Review of Systems All systems reviewed & are unremarkable except as noted in HPI and below PFSH All Active Problems (Updated 08/08/25 @ 17:39 by Geoffrey Foster MD) CHF (congestive heart failure) (Chronic) related to Hg 5.7. Resolved. Nl echo Non-insulin dependent type 2 diabetes mellitus (Acute) Failure to thrive in adult (Acute) Pneumonitis (Acute) Debility (Acute) Hypotension (Acute) NICOLE (acute kidney injury) (Acute) Hypothyroidism (acquired) (Chronic) Hypomagnesemia (Acute) Ambulatory dysfunction (Acute) Acute UTI (Acute) General weakness (Acute) Hx of falling (Acute) Medical History Acute pain of right hip Acute UTI Osteopenia Glaucoma Trochanteric bursitis Atrial fibrillation with RVR Related hg 5.7, isolated CHF (congestive heart failure) related to Hg 5.7. Resolved. Nl echo Anemia Atrial fibrillation Leucocytosis Acute CHF DVT prophylaxis Abnormal finding on breast imaging Goiter Pleural effusion Acute dyspnea Squamous cell cancer of scalp and skin of neck Breast cancer Hypercholesterolemia HTN (hypertension) Diabetes mellitus Surgical History History of thoracentesis (~03/2025) S/P skin and subcutaneous tissue surgery S/P breast lumpectomy Social History Smoking/Tobacco Use Status: Never Smoking risk assessment performed?: Yes Alcohol Intake: never Drug use: Never Substance use type: does not use Housing: house Do you feel safe at home: Yes Do you feel safe in your relationship?: Yes Meds Allergies and Home Medications Allergies Allergy/AdvReac Type Severity Reaction Status Date / Time doxazosin (From Cardura) Allergy Intermediate Unknown Verified 08/01/25 17:14 sitagliptin (From Januvia) Allergy Intermediate Unknown Verified 08/01/25 17:14 famotidine Allergy Unknown Other (See Verified 08/01/25 17:14 Comment) empagliflozin (From Allergy Unknown Verified 08/01/25 17:14 Jardiance) Home Medications Medication Instructions Recorded Confirmed Type glipizide 10 mg tablet 10 mg PO BID 07/12/21 08/08/25 History metoprolol succinate 100 mg 100 mg PO BID #0 tabs 05/08/22 08/08/25 Rx tablet,extended release 24 hr citalopram 20 mg tablet 20 mg PO DAILY 12/30/22 08/08/25 History simvastatin 20 mg tablet 20 mg PO HS 12/30/22 08/08/25 History acetaminophen 325 mg tablet 650 mg (2 x 325 mg) PO Q6H PRN PRN 06/20/23 08/08/25 Rx #30 tabs ferrous gluconate 324 mg (38 mg 324 mg PO DAILY #60 tabs 07/12/23 08/08/25 Rx iron) tablet furosemide 20 mg tablet 20 mg PO DAILY #60 tabs 07/12/23 08/08/25 Rx mirtazapine 30 mg tablet 30 mg PO HS 08/01/25 08/08/25 History levothyroxine 88 mcg tablet 88 mcg PO DAILY 08/02/25 08/08/25 History metformin 500 mg tablet 1,000 mg PO BID 08/02/25 08/08/25 History Exam Narrative Exam Narrative: Well-appearing older female lying in bed no acute distress, ANO x 4, heart regular rhythm, lungs good auscultation bilaterally, abdomen soft, nontender, nondistended Results Labs 08/08/25 13:51 08/08/25 13:51 Labs: Laboratory Results - last 24 hr 08/08/25 08/08/25 08/08/25 13:51 13:52 14:51 WBC 8.91 RBC 3.22 L Hgb 9.9 L Hct 30.9 L MCV 96 H MCH 30.7 MCHC 32.0 RDW 16.0 H Plt Count 185 MPV 9.5 Immature Gran % 0.8 Neutrophils % 69.8 Lymphocytes % 14.5 Monocytes % 5.5 Eosinophils % 8.8 Basophils % 0.6 Nucleated RBC % 0.0 Absolute Neutrophils 6.23 Absolute Lymphocytes 1.29 Absolute Monocytes 0.49 Absolute Eosinophils 0.78 H Absolute Basophils 0.05 Sodium 139 Potassium 4.5 Chloride 104 Carbon Dioxide 26.3 Anion Gap 8.7 BUN 28 H Creatinine 1.8 H Est GFR (CKD-EPI 2020) 27.96 Glucose 148 H Calcium 9.4 Total Bilirubin 0.2 AST 13 L ALT 17 Alkaline Phosphatase 126 H Troponin I 11 10 Total Protein 7.3 Albumin 3.1 L Lipase 25 Urine Color Yellow Urine Clarity Clear Urine pH 6.0 Ur Specific [place] 1.010 Urine Protein Negative Urine Ketones Negative Urine Blood Negative Urine Nitrite Negative Urine Bilirubin Negative Urine Urobilinogen 0.2 Ur Leukocyte Esterase Small H Urine RBC 0-2 Urine WBC 3-5 Ur Epithelial Cells Rare Urine Crystals Negative Urine Bacteria Rare Urine Casts Negative Urine Mucus Negative Ur Culture Indicated? No Urine Glucose 100 H Last Vital Signs Temp 98.0 F 08/08/25 14:00 Pulse 68 08/08/25 15:40 Resp 19 08/08/25 15:40 BP 145/59 H 08/08/25 15:30 Pulse Ox 100 08/08/25 15:40 Time Spent Time spent with Patient: >75 minutes Time was spent: preparing to see the patient(eg.review tests), obtaining and/or reviewing separately otained hiistory, ordering medications,tests, procedures, referring, communicating with other health md do resident urgent care, indepentently interpreting results, counseling the patient and care coordination
[2025-08-08] MEDS: Azithromycin 250 MG TAB 500 MG PO (18:21)
--- NOTE | 2025-08-08 18:42 | W.PC.ACHO ---
Registration Status: ADM MOISÉS Primary Language: Preferred Language: Korean ED Information & Data Chief Complaint GenMedical 08/08/25 15:49 Triage Note PT too weak to get up and 08/08/25 12:17 walk this morning. States that she feels the same way she did when she had a UTI earlier this month. Medical / Surgical History (Last Reviewed 08/01/25 @ 20:25 by Cole Alejandre) Acute pain of right hip Acute UTI Osteopenia Glaucoma Trochanteric bursitis Atrial fibrillation with RVR Anemia Atrial fibrillation Leucocytosis Acute CHF DVT prophylaxis Abnormal finding on breast imaging Goiter Pleural effusion Acute dyspnea Squamous cell cancer of scalp and skin of neck Breast cancer Hypercholesterolemia HTN (hypertension) Diabetes mellitus (Last Reviewed 08/01/25 @ 20:25 by Cole Alejandre) History of thoracentesis (~03/2025) S/P skin and subcutaneous tissue surgery S/P breast lumpectomy Most Recent Vital Signs Temperature 36.9 C 08/08/25 18:39 Temperature Source Temporal Artery Scan 08/08/25 18:39 Pulse 68 08/08/25 18:39 Pulse 69 08/08/25 15:40 Respiratory Rate 16 08/08/25 18:39 Respiratory Effort Normal 08/08/25 14:04 Respiratory Depth Normal 08/08/25 14:04 Respiratory Pattern Normal 08/08/25 14:04 Blood Pressure 115/60 08/08/25 18:39 Blood Pressure Mean 78 08/08/25 18:39 Pulse Oximetry 98 08/08/25 18:39 Oxygen Delivery Method Room Air 08/08/25 18:39 Oxygen Flow Rate 0 08/08/25 18:39 Pain Level 0 08/08/25 14:00 Allergies doxazosin (From Cardura) Allergy (Intermediate, Verified 08/01/25 17:14) Unknown sitagliptin (From Januvia) Allergy (Intermediate, Verified 08/01/25 17:14) Unknown famotidine Allergy (Unknown, Verified 08/01/25 17:14) Other (See Comment) empagliflozin (From Jardiance) Allergy (Verified 08/01/25 17:14) Unknown IV IV Catheter Type [Proximal Port-a-cath (double) Port] IV Catheter Gauge [Proximal 19 Port] Diet Orders Category Date Time Status Diabetes Consistent CHO [DIET] Nutrition 08/09/25 Breakfast Ordered Diagnostics 08/08/25 08/08/2508/08/25 Range/Units 14:51 13:52 13:51 WBC 8.91 (4.4-10.8) 10^3/uL RBC 3.22 L (3.93-5.22) 10^6/uL Hgb 9.9 L (11.2-15.7) g/dL Hct 30.9 L (36.0-46.0) % MCV 96 H (80-95) fL MCH 30.7 (27.0-33.0) pg MCHC 32.0 (32.0-36.0) % RDW 16.0 H (11.7-14.6) % Plt Count 185 (130-400) 10^3/uL MPV 9.5 (8.0-11.0) fL Immature Gran % 0.8 % Neutrophils % 69.8 % Lymphocytes % 14.5 % Monocytes % 5.5 % Eosinophils % 8.8 % Basophils % 0.6 % Nucleated RBC % 0.0 (0.0-0.3) % Absolute Neutrophils 6.23 (1.2-6.7) 10^3/uL Absolute Lymphocytes 1.29 (1.2-3.4) 10^3/uL Absolute Monocytes 0.49 (0.1-0.8) 10^3/uL Absolute Eosinophils 0.78 H (0.0-0.7) 10^3/uL Absolute Basophils 0.05 (0.0-0.2) 10^3/uL Sodium 139 (136-145) mmol/L Potassium 4.5 (3.5-5.1) mmol/L Chloride 104 (98-107) mmol/L Carbon Dioxide 26.3 (21.0-32.0) mmol/L Anion Gap 8.7 (3-11) mmol/L BUN 28 H (7-18) mg/dL Creatinine 1.8 H (0.55-1.02) mg/dL Est GFR (CKD-EPI 2020) 27.96 (mL/min/1.73m2) Glucose 148 H (74-106) mg/dL Calcium 9.4 (8.5-10.1) mg/dL Total Bilirubin 0.2 (0.2-1.0) mg/dL AST 13 L (15-37) U/L ALT 17 (14-59) U/L Alkaline Phosphatase 126 H (46-116) U/L Troponin I 10 11 (<or=51) ng/L Total Protein 7.3 (6.4-8.2) g/dL Albumin 3.1 L (3.4-5.0) g/dL Lipase 25 (<78) U/L Urine Color Yellow (Yellow) Urine Clarity Clear (Clear) Urine pH 6.0 (5-8) Ur Specific [place] 1.010 (1.005-1.025) Urine Protein Negative (Neg-Trace) mg/dL Urine Ketones Negative (Negative) mg/dL Urine Blood Negative (Negative) Urine Nitrite Negative (Negative) Urine Bilirubin Negative (Negative) Urine Urobilinogen 0.2 (Up to 0.2) mg/dL Ur Leukocyte Esterase Small H (Negative) Urine RBC 0-2 (0-2) HPF Urine WBC 3-5 (0-5) HPF Ur Epithelial Cells Rare (Negative) HPF Urine Crystals Negative (Negative) HPF Urine Bacteria Rare (Negative) HPF Urine Casts Negative (Negative) LPF Urine Mucus Negative (Negative) Ur Culture Indicated? No Urine Glucose 100 H (Negative) mg/dL Intake and Output - 24 Hour Total 08/08/25 11:55 thru 08/08/25 12:17 Weight 79.379 kg Falls Risk Assessment History of Falls Previous History 08/08/25 14:02 Contributing Factors Unstable,Impairments, 08/08/25 14:02 Incontinence,Medications Ambulatory Aids Uses ambulatory device 08/08/25 14:02 Tubes/Lines With any additional score 08/08/25 14:02 Gait Evaluation W/any additional score 08/08/25 14:02 Cognition No cognitive impairment 08/08/25 14:02 Fall Total Score 82 08/08/25 14:02 Level of Risk Maximum Risk 08/08/25 14:02 Problems (Last Reviewed 08/01/25 @ 20:25 by Cole Alejandre) CHF (congestive heart failure) (Chronic) Non-insulin dependent type 2 diabetes mellitus (Acute) Failure to thrive in adult (Acute) Pneumonitis (Acute) Hypothyroidism (acquired) (Chronic) v v v v v v v v v Sending and/or Receiving Nurses: Please use comment section below to note any information pertinent to the patient hand-off not included above. Information / Comments: Pt being admitted for weakness, pneumonitits, failure to thrive, is alert, oriented, verbal, nonambulatory at present due to weakness. Report received from: BRIANA Gupta
[2025-08-08] MEDS: Simvastatin 20 MG TAB PO (21:34)
[2025-08-08] MEDS: Metoprolol CR 100 MG TABCR PO (21:34)
[2025-08-08] MEDS: Mirtazapine 15 MG TAB 30 MG PO (21:35)
[2025-08-09] MEDS: Levothyroxine 88 MCG TAB PO (06:25)
[2025-08-09 06:35] LABS: HCT 31.7 % (36.0-46.0); HGB 10.0 g/dL (11.2-15.7); MCH 30.4 pg (27.0-33.0); MCHC 31.5 % (32.0-36.0); MCV 96 fL (80-95); MPV 9.6 fL (8.0-11.0); Platelet Count 191 10^3/uL (130-400); RBC 3.29 10^6/uL (3.93-5.22); RDW 15.9 % (11.7-14.6); RDW-SD 56.8 fL; WBC 10.20 10^3/uL (4.4-10.8)
[2025-08-09 06:46] LABS: Anion Gap 10.4 mmol/L (3-11); BUN 30 mg/dL (7-18); CO2 27.6 mmol/L (21.0-32.0); Calcium 9.5 mg/dL (8.5-10.1); Chloride 104 mmol/L (98-107); Glucose 126 mg/dL (74-106); Magnesium 1.9 mg/dL (1.8-2.4); Potassium 4.7 mmol/L (3.5-5.1); Sodium 142 mmol/L (136-145)
[2025-08-09 08:29] VITALS: BP 144/57; PULSE 79; RESP 16; TEMP 36.9; O2SAT 96
--- NOTE | 2025-08-09 09:56 | PTTR_ITS ---
PT Notes Visit Reasons: Failure to Thrive Inpatient Physical Therapy Treatment Note [facility] Date: 08/09/2025 PRECAUTIONS:fall , standard SUBJECTIVE: Pt stated she slept well and had toast for breakfast. second session: Pt states she is afraid as she heard someone fall this morning. She states she sleeps on couch at home and has not been walking inher home for 2-3 weeks. OBJECTIVE:(1st session) semireclined in bed watching TV ( 2nd session) pt presented seated in chair , incontinent of large amount of urine. Pt was unaware she was incontinent. PAIN: denies VITALS: monitored by Nursing Therapeutic Activities ([id number][]): Direct one-on-one instruction in dynamic activities to improve functional performance. (Am/PM) BED MOBILITY/TRANSFERS Supine-sit: min A of 2 in am Sit-supine: mod A of 1 in pm Sit-stand: at FWW min A of 2 with hands on walker from bed; min A of 1 from chair allowing for increased time to let her initiate the movement Stand-sit: CGA x 2 with cue to reach back (AM/PM) Bed-Chair: min A of 2 with FWW (am) Chair-bed: mod A of 1 with FWW (PM) - pt able to bridge to assist with repositioning Provided skilled cues and instruction on performance and technique throughout. Therapeutic Exercises ([id number][]): Direct one-on-one instruction in therapeutic exercises to develop strength, endurance, range of motion and flexibility. Exercises seated BLE ankle pumps, LAQ, marching forward trunk flexion seated x 5 Provided skilled instruction in proper exercise performance ASSESSMENT: Pt tolerated session well. She is fearful with quick movements and when she feels she is being assisted too much. When given time and reassurance , she is able to initiate stand from a chair with one hand on FWW one on chair and min A . if too much assist is given she panics and sits back down then states she can not do it. She is extremely fearful of falling. PLAN: 1-2x/day, 7 days/week x 1 week. Plan of care has been reviewed with the TUBING OILER providing the service under Physical Therapy direction. Initiate Physical Therapy intervention for strengthening, bed mobility, transfers, gait, stairs, balance training, use of assistive device. TREATMENT CODE/TIME:1st session: 28370/ [id number] 2nd ssession: 83296/ [id number] DISCHARGE RECOMMENDATION: SNF vs HHPT
[2025-08-09] MEDS: Enoxaparin 30 MG/0.3 ML SYR SC (09:58)
[2025-08-09] MEDS: glipiZIDE 5 MG TAB 10 MG PO ×2 (09:58→16:44)
[2025-08-09] MEDS: metFORMIN 500 MG TAB 1000 MG PO ×2 (09:59→17:58)
[2025-08-09] MEDS: Citalopram 20 MG TAB PO (09:59)
[2025-08-09] MEDS: Metoprolol CR 100 MG TABCR PO ×2 (09:59→21:55)
[2025-08-09] MEDS: Furosemide 20 MG TAB PO (10:00)
[2025-08-09] MEDS: Ferrous Gluconate 324 MG TAB PO (10:00)
--- NOTE | 2025-08-09 10:25 | PDOC.CMIN ---
Date of service: 08/09/25 Time of Service: 18:01 Care Management Initial Assmt Initial Assessment Reason for Hospitalization: Failure to thrive Functional Status/Living Situation Patient Presentation: CM met with Arlene, who was lying in bed and awake at the time of the visit. Earlier in the day, her , Quirino, was able to visit. Arlene was recently admitted on 08/01/25 for urinary tract infection and ambulatory dysfunction and was discharged with new home health services. Per report, the home health RN visited shortly after discharge; however, PT was unable to make a visit before Arlene re-presented to the ED. Arlene was brought to the ED by her , reporting increased weakness and inability to ambulate. Arlene resides in [facility] with her , Quirino. Their son is . Arlene shared that she has a sister who lives in [place] and that she and Quirino have a strong support network among their neighbors, who are very helpful to them. Per report, Quirino is her primary manager respiratory care and does not feel he can do this anymore. He typically transports her to appointment but has recently began using [facility] W/C van. PT was ordered and recommendation is short term SNF vs Home with HHPT pending progress toward goals; See documentation. Per report, Arlene is doing well with moving however, she is very apparently scared to fall. Arlene states her goal is to go home and she would prefer to not be far away from home. Arlene may be appropriate for SWB1. Per RN, Quirino was requesting to take Arlene home earlier in the day but changed his mind. Arlene does not have a qualifying [facility] stay for SNF but is ACO attribute. Referrals were sent to all ACO facilities in the [facility]. Arlene will remain at [facility] throughout the weekend and continue to work with PT while here. She receives MOW and has community case management through the [facility]. She is interested in support with terminal superintendent planning and is planning to have Alla Patterson from [facility] assist her with this. 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[employer]) Instrumental Activities of Daily Living (ADLs): Requires support (recently mobility) with Dishes/food prep and Transportation Medications Medication Management: No Issues/Barriers identified Physical Functioning/Mobility Assistive Device: Wheelchair, walker, ramp, uses rct w/c van prn Advance Directives Advance Directives: Do you have an Advance Directive: Y 02/28/25, 08:30 AD On File at [facility]: Y 02/28/25, 08:30 Date Asked 08/08/25 08/08/25, 12:24 AD Date Reviewed 08/09/25 Today, 07:30 COLST On File at [facility] No 01/27/24, 08:54 COLST Date Scanned Code Status Resuscitation Status DNR/DNI Portal Pt does not currently have a portal and education provided: Yes Insurance Coverage/Financial Issues Insurance: Medicare Part A & B - [id number] Medicaid of [place] - [id number] Care Team Visit Care Team Role Provider Type Lucius Dent MD MD [facility] STAFF PHYSICIAN Geovanna Anders Primary Care Provider NURSE PRACTITIONER InPatient Sean Escobedo Other Providers OTHER DIEGO [facility] Provider PHYSICIANS WET POUR MIXER Geoffrey Foster MD Admit Provider [facility] STAFF PHYSICIAN Attending Provider Discharge Potential Discharge Needs: PCP F/U Appt Anticipated Barriers to Discharge: None Identified Patient/Family Education Needs: Review discharge instructions, discuss Ask Me Three Plan: Arlene will either return home with a resumption of HH RN and new PT/OT/FERTILIZER LOADER vs. going to rehab for strengthening prior to returning home vs SWB1. She will follow up with her PCP and plan of care as instructed. Transportation will be determined by disposition. If Arlene returns home, she will be transported by her via private vehicle. Arlene receives MOW and has community CM through [facility]. She works with [employer] and is planning to ask for support with group home planning. She is interested in options counseling and LTM, CM will notify [facility]. CM will continue to support Arlene, her family and any discharge planning needs. Social Determinants of Health Screening Social Determinants of health last assessed in clinic: 08/09/25 Will the Patient Participate in the Screening?: Unable to obtain Do you worry about having a steady place to live?: choose not to answer Problems where you live: no known problems In the past 12 months, have you had to go without electric, gas, oil or water in your home?: no 1. Within the past 12 months, we worried whether our food would run out before we got money to buy more.: Never true 2. Within the past 12 months, the food we bought just didn't last and we didn't have money to get more.: Never true Has lack of transportation kept you from medical appointments or from doing things needed for daily living?: no Has anyone in your life made you feel unsafe or unsupported?: no How hard is it for you to pay for the very basics like food, housing, medical care, and heating? Would you say it is:: Not hard at all Do you want help finding or keeping work or a job?: I do not need or want help If for any reason you need help with day-to-day activities such as bathing, preparing meals, shopping, managing finances, etc., do you get the help you need?: I need a lot more help How often do you feel lonely or isolated from those around you?: Never Do you speak a language other than Malay at home?: No Does the patient want assistance with any of the above?: No Health Related Social Needs Health related social needs: problems with daily activities (Z73.9) PFSH All Active Problems (Updated 08/09/25 @ 13:03 by Lucius Dnet MD) CHF (congestive heart failure) (Chronic) related to Hg 5.7. Resolved. Nl echo Non-insulin dependent type 2 diabetes mellitus (Acute) Failure to thrive in adult (Acute) Debility (Acute) Hypotension (Acute) NICOLE (acute kidney injury) (Acute) Hypothyroidism (acquired) (Chronic) Hypomagnesemia (Acute) Ambulatory dysfunction (Acute) Acute UTI (Acute) General weakness (Acute) Hx of falling (Acute) Medical History Acute pain of right hip Acute UTI Osteopenia Glaucoma Trochanteric bursitis Atrial fibrillation with RVR Related hg 5.7, isolated CHF (congestive heart failure) related to Hg 5.7. Resolved. Nl echo Anemia Atrial fibrillation Leucocytosis Acute CHF DVT prophylaxis Abnormal finding on breast imaging Goiter Pleural effusion Acute dyspnea Squamous cell cancer of scalp and skin of neck Breast cancer Hypercholesterolemia HTN (hypertension) Diabetes mellitus Surgical History History of thoracentesis (~03/2025) S/P skin and subcutaneous tissue surgery S/P breast lumpectomy Social History Smoking/Tobacco Use Status: Never Smoking risk assessment performed?: Yes Alcohol Intake: never Drug use: Never Substance use type: does not use Housing: house Do you feel safe at home: Yes Do you feel safe in your relationship?: Yes Readmission Within the Past 30 Days Yes or No: Yes Date of First Admission Date of 1st Admission: 08/01/25 Date of this Admission Date of Admission: 08/08/25 This admission was: Through ED Office Visit Since 1st Admission Have you seen your PCP in the office since discharge?: No Had an appointment Been Scheduled?: Yes Speicalist Appointments Have you seen any other specialist since your 1st Admission?: No I. Interview patient and/or Family Difficulty reaching your doctor or getting an office appt?: No Have you had trouble purchasing/ or taking medication?: No Have you had trouble with getting meals at home?: No Did you feel ready for discharge when you left the last time: Yes Were services received that you thought were set up on disch: Yes What services were received?: HH services MOW Did you call your physician beore you came to the ED?: No Did your physician tell you to come in?: No If the patient had a VNA ordered Did the patient have a VNA order?: Yes Did you call the VNA before you came?: No Did the VNA tell you to come to the hospital?: No Do you know if the VNA called your physician?: No ED visits How many ED visits in the past 12 months: 2 Assessment for Readmission Summary of readmission circumstances, based upon interviews: Patient was discharged home and HH PT never came out; They called while [facility] had brought the pt into the ED. Junior [employer] Math Teacher feels he cannot care for her any longer Anticipated HH Services Anticipated HH Services at Discharge [facility] Needed, FERTILIZER LOADER, OT, PT and RN Anticipated Date of Discharge: 08/13/25..
--- NOTE | 2025-08-09 11:17 | PDOC.CMDIS ---
Date of service: 08/09/25 Time of Service: 11:17 Care Management Discharge SDOH Health Related Social Needs: Health related social needs daily activities
--- NOTE | 2025-08-09 12:52 | PDOC.HHF2F_ITS ---
Date of service: 08/09/25 Time of Service: 12:52 Home Health Referral Registered Nurse: Check all that apply Instruct on new or changed medication(s)/assess compliance: Ordered Assess for exacerbation of medical condition, instruct patient/caregivers on signs and symptoms to report for early detection: Ordered Other: Monitor BP/glucose In setting of NICOLE, Lisinopril, metformin and ibuprofen held BMP 06/23 results to PCP Physical Therapist: Check all that apply Increase strength & endurance for safe mobility at home: Ordered To design/establish home maintenance program: Ordered Fall reduction therapy program for patient with history of frequent falls: Ordered Home safety evaluation and teaching/gait training including stair management (if applicable): Ordered Occupational Therapist: Evaluate and treat for patient unable to perform ADL/IADL/self-care: Ordered Upper extremity strengthening, range and motion: Ordered Auto Winder: Assist with community resources: Ordered Assist with exterminator helper termite care planning: Ordered Home Bound Status Requires the aid of supportive device (check all that apply): Walker Patient has a condition such that leaving home is medically contraindicated (Describe): Unable to ambulate without device or one person assisting her. She requires stand by assistance. Encounter Date and Reason: I certify that a FTF encounter for this patient was performed on August 09, 2025 and that such encounter was related to the primary reason the patient requires home health services. The encounter was conducted in the following manner: * By me as the certifying physician, REVENUE ENFORCEMENT COLLECTION AGENT, PA or * By an inpatient physician, REVENUE ENFORCEMENT COLLECTION AGENT or PA during an inpatient stay who communicated findings to me, Certification And Authentication I certify that I composed the above information based on my clinical judgment relating to this patient's medical condition and, if applicable, clinical findings communicated to me by the NPP or inpatient physician who performed the FTF encounter. Name of Provider that will be monitoring home health services: Geovanna Vazquez
--- NOTE | 2025-08-09 12:52 | W.PM.DS.N ---
Date of service: 08/09/25 Time of Service: 13:00 DS: Diagnosis Discharge Diagnosis (1) Failure to thrive in adult: Status: Acute Asessment and Plan: - Patient again presents to the hospital with generalized weakness though this time there is no medical cause - Was evaluated by physical therapy and determined to be unsafe for discharge home without increased home health services - Will continue to work with physical therapy on regaining strength - Greatly appreciate care management assistance and potential placement for patient (2) Pneumonitis: Status: Ruled-out Asessment and Plan: CT chest in ED suggestive of pneumonitis, started azithromycin Discontinued antibiotics as patient is asymptomatic (3) Hypothyroidism (acquired): Status: Chronic Asessment and Plan: - Continue home Synthroid (4) Non-insulin dependent type 2 diabetes mellitus: Status: Acute Asessment and Plan: - Continue home metformin and glipizide (5) CHF (congestive heart failure): Status: Chronic Asessment and Plan: - Continue home metoprolol succinate twice daily, simvastatin 20, Lasix 20 Discharge Plan Disposition Patient Disposition: Home W/Home Health Services Condition: Fair Discharge Details Reason For Visit: Failure to Thrive Admit Date/Time: 08/08/25 17:23 Admit Provider: Geoffrey Foster Attending Provider: Geoffrey Foster Primary Care Provider: Geovanna Anders Hospital Course Hospital Course: Arlene Wilder is an 79 year old woman presenting August 08 with reported failure to thrive. She has been hospitalized multiple times this year for the same presentation. She has been evaluated by physical therapy, who advise home health services. Her PO intake and mentation have improved and she is safe to return home. Home Meds and New Rx's Prescriptions: Continued citalopram 20 mg tablet 20 mg PO DAILY metoprolol succinate 100 mg Tablet Extended Release 24 Hr 100 mg PO BID Qty: 0 0RF mirtazapine 30 mg tablet 30 mg PO HS Patient Comments: TAKE ONE TABLET BY MOUTH EVERY DAY metformin 500 mg tablet 1,000 mg PO BID Patient Comments: TAKE TWO TABLETS BY MOUTH TWICE A DAY levothyroxine 88 mcg tablet 88 mcg PO DAILY Patient Comments: TAKE ONE TABLET BY MOUTH EVERY MORNING glipizide 10 mg Tablet 10 mg PO BID simvastatin 20 mg tablet 20 mg PO HS acetaminophen 325 mg Tablet 650 mg PO Q6H PRN PRNQty: 30 0RF furosemide 20 mg Tablet 20 mg PO DAILY Qty: 60 1RF ferrous gluconate 324 mg (38 mg iron) Tablet 324 mg PO DAILY Qty: 60 1RF Discharge Instructions Activity:: Activity as Tolerated Equipment/Supplies:: No Equipment Needed Diet:: As Tolerated Discharge Orders Discharge Orders: Discharge Order (Routine); Ordered 08/09/25 Ordered By: Lucius Dent DS: Summary Time Spent with Patient providing and/or coordinating discharge services: Less than 30 minutes Status at Discharge Functional status at discharge: independent ambulation Overall status at discharge: patient is back to baseline Mental Status: mental status grossly normal Speech and Movement: speech and movement normal Mood: congruent mood Affect: normal affect Quality:SDOH Health Related Social Needs: Health related social needs daily activities Exam Narrative Exam Narrative: General: This is a pleasant, elderly woman in no distress HEENT: Normocephalic, atraumatic CV: RRR Resp: CTAB Abd: soft, NTND MSK: voluntary motion x4 Neuro: awake, alert, no focal deficits Psych Mental Status: mental status grossly normal Speech and Movement: speech and movement normal Mood: congruent mood Affect: normal affect DS: Data Vitals/I&O Vitals and I&O: Vital Signs Temperature 36.9 C 08/09/25 08:29 Temperature Source Temporal Artery Scan 08/09/25 08:29 Pulse 79 08/09/25 08:29 Pulse 69 08/08/25 15:40 Respiratory Rate 16 08/09/25 08:29 Respiratory Effort Normal 08/08/25 21:46 Respiratory Depth Normal 08/08/25 21:46 Respiratory Pattern Normal 08/08/25 21:46 Blood Pressure 144/57 H 08/09/25 08:29 Blood Pressure Mean 86 08/09/25 08:29 Pulse Oximetry 96 08/09/25 08:29 Oxygen Delivery Method Room Air 08/09/25 08:29 Oxygen Flow Rate 0 08/09/25 08:29 Pain Level 0 08/08/25 14:00 Intake & Output 08/08/25 08/09/25 08/09/25 23:59 11:59 23:59 Intake Total 240 / 240 Output Total 400 / 400 Balance -400 / -400 240 / 240 Weight 95.572 kg Intake: Oral 240 / 240 Output: Urine 400 / 400 Other: Urine Color Yellow Yellow Urine Appearance Clear Urine Odor Strong Comment pull up was wet pt checked and dry Data Completed and Pending Pending Labs at Discharge: 08/08/25 08/08/25 08/08/25 13:51 13:52 14:51 WBC 8.91 RBC 3.22 L Hgb 9.9 L Hct 30.9 L MCV 96 H MCH 30.7 MCHC 32.0 RDW 16.0 H Plt Count 185 MPV 9.5 Immature Gran % 0.8 Neutrophils % 69.8 Lymphocytes % 14.5 Monocytes % 5.5 Eosinophils % 8.8 Basophils % 0.6 Nucleated RBC % 0.0 Absolute Neutrophils 6.23 Absolute Lymphocytes 1.29 Absolute Monocytes 0.49 Absolute Eosinophils 0.78 H Absolute Basophils 0.05 Sodium 139 Potassium 4.5 Chloride 104 Carbon Dioxide 26.3 Anion Gap 8.7 BUN 28 H Creatinine 1.8 H Est GFR (CKD-EPI 2020) 27.96 Glucose 148 H Calcium 9.4 Magnesium Total Bilirubin 0.2 AST 13 L ALT 17 Alkaline Phosphatase 126 H Troponin I 11 10 Total Protein 7.3 Albumin 3.1 L Lipase 25 Urine Color Yellow Urine Clarity Clear Urine pH 6.0 Ur Specific [place] 1.010 Urine Protein Negative Urine Ketones Negative Urine Blood Negative Urine Nitrite Negative Urine Bilirubin Negative Urine Urobilinogen 0.2 Ur Leukocyte Esterase Small H Urine RBC 0-2 Urine WBC 3-5 Ur Epithelial Cells Rare Urine Crystals Negative Urine Bacteria Rare Urine Casts Negative Urine Mucus Negative Ur Culture Indicated? No Urine Glucose 100 H 08/09/25 06:00 WBC 10.20 RBC 3.29 L Hgb 10.0 L Hct 31.7 L MCV 96 H MCH 30.4 MCHC 31.5 L RDW 15.9 H Plt Count 191 MPV 9.6 Immature Gran % Neutrophils % Lymphocytes % Monocytes % Eosinophils % Basophils % Nucleated RBC % Absolute Neutrophils Absolute Lymphocytes Absolute Monocytes Absolute Eosinophils Absolute Basophils Sodium 142 Potassium 4.7 Chloride 104 Carbon Dioxide 27.6 Anion Gap 10.4 BUN 30 H Creatinine 1.7 H Est GFR (CKD-EPI 2020) 29.94 Glucose 126 H Calcium 9.5 Magnesium 1.9 Total Bilirubin AST ALT Alkaline Phosphatase Troponin I Total Protein Albumin Lipase Urine Color Urine Clarity Urine pH Ur Specific [place] Urine Protein Urine Ketones Urine Blood Urine Nitrite Urine Bilirubin Urine Urobilinogen Ur Leukocyte Esterase Urine RBC Urine WBC Ur Epithelial Cells Urine Crystals Urine Bacteria Urine Casts Urine Mucus Ur Culture Indicated? Urine Glucose PFSH All Active Problems (Updated 08/09/25 @ 13:03 by Lucius Dent MD) CHF (congestive heart failure) (Chronic) related to Hg 5.7. Resolved. Nl echo Non-insulin dependent type 2 diabetes mellitus (Acute) Failure to thrive in adult (Acute) Debility (Acute) Hypotension (Acute) NICOLE (acute kidney injury) (Acute) Hypothyroidism (acquired) (Chronic) Hypomagnesemia (Acute) Ambulatory dysfunction (Acute) Acute UTI (Acute) General weakness (Acute) Hx of falling (Acute) Medical History Acute pain of right hip Acute UTI Osteopenia Glaucoma Trochanteric bursitis Atrial fibrillation with RVR Related hg 5.7, isolated CHF (congestive heart failure) related to Hg 5.7. Resolved. Nl echo Anemia Atrial fibrillation Leucocytosis Acute CHF DVT prophylaxis Abnormal finding on breast imaging Goiter Pleural effusion Acute dyspnea Squamous cell cancer of scalp and skin of neck Breast cancer Hypercholesterolemia HTN (hypertension) Diabetes mellitus Surgical History History of thoracentesis (~03/2025) S/P skin and subcutaneous tissue surgery S/P breast lumpectomy Social History Smoking/Tobacco Use Status: Never Smoking risk assessment performed?: Yes Alcohol Intake: never Drug use: Never Substance use type: does not use Housing: house Do you feel safe at home: Yes Do you feel safe in your relationship?: Yes Time Spent with Patient Time Spent with Patient: <45 minutes Time was spent: other
[2025-08-09 21:50] VITALS: BP 144/72; PULSE 84; RESP 20; TEMP 37.2; O2SAT 98
[2025-08-09] MEDS: Mirtazapine 15 MG TAB 30 MG PO (21:55)
[2025-08-09] MEDS: Simvastatin 20 MG TAB PO (21:55)
[2025-08-10] MEDS: Levothyroxine 88 MCG TAB PO (06:37)
[2025-08-10 07:56] VITALS: BP 161/79; PULSE 78; RESP 16; TEMP 36.2; O2SAT 98
[2025-08-10] MEDS: Citalopram 20 MG TAB PO (08:42)
[2025-08-10] MEDS: glipiZIDE 5 MG TAB 10 MG PO ×2 (08:42→18:15)
[2025-08-10] MEDS: metFORMIN 500 MG TAB 1000 MG PO ×2 (08:42→18:15)
[2025-08-10] MEDS: Ferrous Gluconate 324 MG TAB PO (08:43)
[2025-08-10] MEDS: Furosemide 20 MG TAB PO (08:43)
[2025-08-10] MEDS: Enoxaparin 30 MG/0.3 ML SYR SC (08:43)
[2025-08-10] MEDS: Metoprolol CR 100 MG TABCR PO ×2 (08:43→21:04)
--- NOTE | 2025-08-10 11:15 | PT.INTREAT ---
Date of service: 08/10/25 PT Notes Visit Reasons: Failure to Thrive Inpatient Physical Therapy Treatment Note [facility] Date: 08/10/2025 PRECAUTIONS:fall , standard SUBJECTIVE: Pt stated she needed to go to the bathroom OBJECTIVE:(1st session) semireclined in bed watching TV with her present ( 2nd session) pt presented seated in chair , requesting to use bathroom. PAIN: denies VITALS: monitored by Nursing Therapeutic Activities ([id number][]): Direct one-on-one instruction in dynamic activities to improve functional performance. (Am/PM) Provided skilled cues and instruction on performance and technique throughout. BED MOBILITY/TRANSFERS Supine-sit: mod A of 2 in am ( pt sleeps on couch at home) Sit-supine: mod A of 1 for LEs once in bed pt able to boost self up in bed via bridge in pm Sit-stand: at FWW min A of 1from bed with hands on walker from bed; min A of 1 from commode allowing for increased time to let her initiate the movement Stand-sit: CGA x 1 with cue to reach back (AM/PM) Bed-Commode: mod A of 1 with FWW (am) Commode -Chair: mod A of 1 with FWW (am) pm session chair to commode 6 feet from chair CGA with FWW cues for safe approach commode to bed 5 feet from bed with FWW CGA with 360 degree turn cues for safe approach static stand at FWW x 40 sec for hygiene with SBA Therapeutic Exercises ([id number][]): Direct one-on-one instruction in therapeutic exercises to develop strength, endurance, range of motion and flexibility. (am) Exercises supine Heel slides , hip abd/add x 5 reps seated BLE ankle pumps, LAQ, marching x 10 reps forward trunk flexion seated x 5 Provided skilled instruction in proper exercise performance ASSESSMENT: Pt tolerated session well. She remains fearful with quick movements and when she feels she is being assisted too much. When given time and reassurance , she is able to initiate stand from a chair with one hand on FWW one on chair and min A . if too much assist is given she panics and sits back down then states she can not do it. She is extremely fearful of falling. Her was present for transfer to the commode. This PT request he bring in shoes to attempt to increase anterior weight shift in standing. During p.m. session patient able to ambulate with FWW 5 feet x 1, 6 feet x 1 with contact-guard assist. Has been present and provided contact-guard assist for transfer PLAN: 1-2x/day, 7 days/week x 1 week. Plan of care has been reviewed with the DIESEL ENGINE INSPECTOR providing the service under Physical Therapy direction. Initiate Physical Therapy intervention for strengthening, bed mobility, transfers, gait, stairs, balance training, use of assistive device. TREATMENT CODE/TIME:1st session: 67832/ [id number] 2nd session: 47202/ [id number] DISCHARGE RECOMMENDATION: SNF vs HHPT
--- NOTE | 2025-08-10 16:11 | PGE_ITS ---
Date of Service Date of service: 08/10/25 Time of Service: 11:00 Assessment and Plan Assessment and plan (1) Failure to thrive in adult: Status: Acute Assessment and plan: - Patient again presents to the hospital with generalized weakness though this time there is no medical cause - Was evaluated by physical therapy and determined to be unsafe for discharge home - Will continue to work with physical therapy on regaining strength - Greatly appreciate care management assistance and potential placement for patient (2) Pneumonitis: Status: Ruled-out Assessment and plan: - Chest CT in the emergency department - Emergency room provider started azithromycin - Will not continue as patient is not complaining of any cough, does not have increased respiratory rate, oxygen requirements or leukocytosis (3) Hypothyroidism (acquired): Status: Chronic Assessment and plan: - Continue home Synthroid (4) Non-insulin dependent type 2 diabetes mellitus: Status: Acute Assessment and plan: - Continue home metformin and glipizide (5) CHF (congestive heart failure): Status: Chronic Assessment and plan: - Continue home metoprolol succinate twice daily, simvastatin 20, Lasix 20 Subjective Subjective Interval history since last seen: Mrs. Wilder is up in a chair. No appetite for lunch. at bedside. They are hoping to find a place where her care is assisted. Exam Narrative Exam Narrative: General: This is a pleasant, elderly woman in no distress HEENT: Normocephalic, atraumatic CV: RRR Resp: CTAB Abd: soft, NTND MSK: voluntary motion x4 Neuro: awake, alert, no focal deficits Objective Last Vital Signs Temp 36.2 C L 08/10/25 07:56 Pulse 78 08/10/25 07:56 Resp 16 08/10/25 07:56 BP 161/79 H 08/10/25 07:56 Pulse Ox 98 08/10/25 07:56 Time Spent with Patient Time Spent with Patient: 25-34 minutes Time was spent: preparing to see the patient(eg.review tests), obtaining and/or reviewing separately otained hiistory, ordering medications,tests, procedures, referring, communicating with other health director of critical care, indepentently interpreting results, counseling the patient and care coordination
--- NOTE | 2025-08-10 17:49 | PDOC.CMPRO ---
Date of service: 08/10/25 Time of Service: 11:30 Care Management Progress Note Progress Note Text Progress Note Text: Arlene's , Quirino, asked to speak with CM today. He was upset about the communication error yesterday, and reiterated that he is not able to care for Arlene if she can not at least safely ambulate a couple of steps to get from bed to chair to commode. He has been caring for Arlene for quite some time, they are about to celebrate their 58 anniversary, and he became teary when talking about her. Quirino felt that he did not understand what Arlene's discharge plan is. We discussed [facility]'s observation status which provides no qualifying stay for STR, however, Arlene is ACO and referrals were sent to ACO facilities, though none are very close. Quirino was made aware that Arlene would not be going anywhere until Tuesday at the very earliest. He was told that we will discuss with him any bed offers before accepting. Quirino was also able to speak with Arlene's provider today. He stated to CM that he felt a lot better and had a much better understanding of what was going on after speaking with CM and with MD. PT did work with Arlene x2 today. They continue to recommend HH vs. SNF. CM sent a referral today to [facility] to help with options planning and request that she have help re-enrolling in Medicare. Discharge Potential Discharge Needs: PCP F/U Appt Anticipated Barriers to Discharge: None Identified Patient/Family Education Needs: Review discharge instructions, discuss Ask Me Three Transportation: Other (dependent on disposition) Plan: Arlene will either return home with a resumption of HH RN and new PT/OT/METEOROLOGIST IN CHARGE vs. going to rehab for strengthening prior to returning home vs SWB1. She will follow up with her PCP and plan of care as instructed. Transportation will be determined by disposition. If Arlene returns home, she will be transported by her via private vehicle. CM will continue to follow. Social Determinants of Health Screening Social Determinants of health last assessed in clinic: 08/09/25 Will the Patient Participate in the Screening?: Unable to obtain Do you worry about having a steady place to live?: choose not to answer Problems where you live: no known problems In the past 12 months, have you had to go without electric, gas, oil or water in your home?: no Has lack of transportation kept you from medical appointments or from doing things needed for daily living?: no Has anyone in your life made you feel unsafe or unsupported?: no How hard is it for you to pay for the very basics like food, housing, medical care, and heating? Would you say it is:: Not hard at all Do you want help finding or keeping work or a job?: I do not need or want help If for any reason you need help with day-to-day activities such as bathing, preparing meals, shopping, managing finances, etc., do you get the help you need?: I need a lot more help How often do you feel lonely or isolated from those around you?: Never Do you speak a language other than German at home?: No Does the patient want assistance with any of the above?: No Health Related Social Needs Health related social needs: problems with daily activities (Z73.9)
[2025-08-10 21:02] VITALS: BP 139/77; PULSE 82; RESP 20; TEMP 36; O2SAT 99
[2025-08-10] MEDS: Simvastatin 20 MG TAB PO (21:04)
[2025-08-10] MEDS: Mirtazapine 15 MG TAB 30 MG PO (21:05)
[2025-08-10] MEDS: Nystatin POWDER 15 GM JAR TP (21:36)
[2025-08-11] MEDS: Levothyroxine 88 MCG TAB PO (06:29)
[2025-08-11 06:55] VITALS: BP 119/51; PULSE 75; RESP 16; TEMP 36; O2SAT 95
[2025-08-11] MEDS: Citalopram 20 MG TAB PO (08:04)
[2025-08-11] MEDS: Metoprolol CR 100 MG TABCR PO ×2 (08:04→20:03)
[2025-08-11] MEDS: Furosemide 20 MG TAB PO (08:04)
[2025-08-11] MEDS: glipiZIDE 5 MG TAB 10 MG PO ×2 (08:04→17:15)
[2025-08-11] MEDS: Ferrous Gluconate 324 MG TAB PO (08:04)
[2025-08-11] MEDS: Enoxaparin 40 MG/0.4 ML SYR SC (08:43)
[2025-08-11] MEDS: metFORMIN 500 MG TAB 1000 MG PO ×2 (08:43→18:37)
[2025-08-11] MEDS: Nystatin POWDER 15 GM JAR TP ×3 (08:44→20:08)
[2025-08-11] MEDS: Normal Saline Flush 10 ML SYR IVP ×2 (10:11→20:07)
--- NOTE | 2025-08-11 10:35 | PT.INTREAT ---
Date of service: 08/11/25 PT Notes Visit Reasons: Failure to Thrive Inpatient Physical Therapy Treatment Note [facility] Date: 08/11/2025 PRECAUTIONS:fall , standard SUBJECTIVE: Pt stated she feels a little better today. She reports her will begin at lunchtime P.m. session patient stating she feels good and thinks that she can walk. OBJECTIVE:(1st session) semireclined in bed watching TV ( 2nd session) pt presented seated in chair , requesting to use bathroom. PAIN: denies VITALS: monitored by Nursing Therapeutic Activities ([id number]): Direct one-on-one instruction in dynamic activities to improve functional performance. (Am/PM) Provided skilled cues and instruction on performance and technique throughout. BED MOBILITY/TRANSFERS Supine-sit: mod A of 2 in am ( pt sleeps on couch at home) Sit-supine: Luke of 1 for LEs and then cues to reposition self via bridging once in bed pt able to boost self up in bed Sit-stand: at FWW min A of 1 from bed with hands on walker after 3 attempts; min A of 1 from commode allowing for increased time to let her initiate the movement Stand-sit: CGA x 1 with cue to reach back (AM/PM) Bed-CHAIR: CGA of 1 with FWW (am) Commode -Chair: CGA of 1 with FWW Facilitated safe and correct performance of level surface ambulation covering a distance of 10 feetX1 15 FEET X 1 using use front wheeled walker with contact-guard assist and chair follow for safety. Did not report of any increased pain. Denied headache, chest pain, and lightheadedness throughout activity. Minimal verbal cueing provided for AD management, directional changes, and posture. PM facilitated safe and correct performance of level surface ambulation as follows: chair to chair 15 feet CGA with FWW including turns cues for safe approach chair to commode ~12 feet CGA with FWW including turns commode to bed 15 feet with FWW CGA with 360 degree turn cues for safe approach static stand at FWW x 40 sec for hygiene with SBA Therapeutic Exercises ): Direct one-on-one instruction in therapeutic exercises to develop strength, endurance, range of motion and flexibility. (AM) Exercises seated BLE ankle pumps, LAQ, marching x 10 reps forward trunk flexion seated x 5 Provided skilled instruction in proper exercise performance ASSESSMENT: Pt tolerated session well. Patient demonstrated increased distance of ambulation during morning session with FWW and contact-guard assist. was not present for this a.m. session. She remains fearful with quick movements and when she feels she is being assisted too much. When given time and reassurance , she is able to initiate stand from a chair with one hand on FWW one on chair and min A . If too much assist is given she panics and sits back down ,then states she can not do it. She is extremely fearful of falling. P.m. session: Per nurse patient was given Xanax prior to lunch. Patient noted to be less anxious able to follow all instructions. Patient able to perform tasks with contact-guard/min assist level. Her participated in care providing contact-guard assist during ambulation with FWW short distances as stated above. expressed that he may like to take her home instead of going to rehab if she is still able to continue walking. athlete manager notified of request to speak to them. PLAN: 1-2x/day, 7 days/week x 1 week. Plan of care has been reviewed with the STUDENT DEAN providing the service under Physical Therapy direction. Initiate Physical Therapy intervention for strengthening, bed mobility, transfers, gait, stairs, balance training, use of assistive device. TREATMENT CODE/TIME:1st session: 13167/ [id number] 2nd session: 78250/[id number] DISCHARGE RECOMMENDATION: SNF vs HHPT
[2025-08-11] MEDS: ALPRAZolam 0.25 MG TAB PO (11:33)
--- NOTE | 2025-08-11 13:59 | W.PM.PROGNOT ---
Date of Service Date of service: 08/11/25 Time of Service: 13:00 Assessment and Plan Assessment and plan (1) Failure to thrive in adult: Status: Acute Assessment and plan: - Patient again presents to the hospital with generalized weakness though this time there is no medical cause - Was evaluated by physical therapy and determined to be unsafe for discharge home - Will continue to work with physical therapy on regaining strength - Greatly appreciate care management assistance and potential placement for patient (2) Pneumonitis: Status: Ruled-out Assessment and plan: - Chest CT in the emergency department - Emergency room provider started azithromycin - Will not continue as patient is not complaining of any cough, does not have increased respiratory rate, oxygen requirements or leukocytosis (3) Hypothyroidism (acquired): Status: Chronic Assessment and plan: - Continue home Synthroid (4) Non-insulin dependent type 2 diabetes mellitus: Status: Acute Assessment and plan: - Continue home metformin and glipizide (5) CHF (congestive heart failure): Status: Chronic Assessment and plan: - Continue home metoprolol succinate twice daily, simvastatin 20, Lasix 20 Subjective Subjective Interval history since last seen: Mrs. Wilder is up in a chair, no complaints. She had a good session with PT today and she and her now prefer to go home with home health. Exam Narrative Exam Narrative: General: This is a pleasant, elderly woman in no distress HEENT: Wounds on top of scalp, dressed. CV: RRR Resp: CTAB Abd: soft, NTND MSK: voluntary motion x4 Neuro: awake, alert, no focal deficits Objective Last Vital Signs Temp 36.0 C L 08/11/25 06:55 Pulse 75 08/11/25 06:55 Resp 16 08/11/25 06:55 BP 119/51 L 08/11/25 06:55 Pulse Ox 95 08/11/25 06:55 Time Spent with Patient Time Spent with Patient: 25-34 minutes Time was spent: preparing to see the patient(eg.review tests), obtaining and/or reviewing separately otained hiistory, ordering medications,tests, procedures, referring, communicating with other health health care administrator, indepentently interpreting results, counseling the patient and care coordination
--- NOTE | 2025-08-11 14:11 | PHA.REVIEW2 ---
Pharmacy Admission Review Admission Clinical Review Admission Pharmacy Review: Non-insulin dependent type 2 diabetes mellitus (Acute) Failure to thrive in adult (Acute) doxazosin (From Cardura) Allergy (Intermediate, Verified 08/01/25 17:14) Unknown sitagliptin (From Januvia) Allergy (Intermediate, Verified 08/01/25 17:14) Unknown famotidine Allergy (Unknown, Verified 08/01/25 17:14) Other (See Comment) empagliflozin (From Jardiance) Allergy (Verified 08/01/25 17:14) Unknown Resuscitation Status DNR/DNI Height 5 ft 6 in Weight 95.572 kg Comments Comments/Follow Ups: Blood pressure currently 119/51 needs monitoring Pharmacy Admission Review Renal Dosing Renal Dosing: BUN 30 mg/dL (7-18) H 08/09/25 06:00 Creatinine 1.7 mg/dL (0.55-1.02) H 08/09/25 06:00 Medications needing adjustments: Reviewed (BUN, Creatinine high. Patient is taking metformin 1000mg twice daily but eGFR is <30, a contraindication for metformin. Provider notified) Anticoagulation Anticoagulation: Hgb 10.0 g/dL (11.2-15.7) L 08/09/25 06:00 Hct 31.7 % (36.0-46.0) L 08/09/25 06:00 Plt Count 191 10^3/uL (130-400) 08/09/25 06:00 Creatinine 1.7 mg/dL (0.55-1.02) H 08/09/25 06:00 DVT Prophylaxis: Reviewed Medications: Enoxaparin (Dose was adjusted to 40mg daily when Crcl improved to 30.24ml/min as per protocol ) Relevant Labs Relevant Labs: Sodium 142 mmol/L (136-145) 08/09/25 06:00 Potassium 4.7 mmol/L (3.5-5.1) 08/09/25 06:00 Chloride 104 mmol/L (98-107) 08/09/25 06:00 Magnesium 1.9 mg/dL (1.8-2.4) 08/09/25 06:00 Electrolytes, C-Reactive P, ESR: Reviewed (Electrolytes are stable and within normal limits) DM Control DM Control: Glucose 126 mg/dL (74-106) H 08/09/25 06:00 DM Control: Reviewed Insulin Dosing, Diabetic Medication: Glipizide, metformin Cardiac Review Cardiac Review: Blood Pressure 119/51 Troponin I 10 ng/L (<or=51) 08/08/25 14:51 BP, HR, EF%: Reviewed QTc Review QTc: Reviewed (Last QTc reported at 450 per EKG results on 08/08/25 ) Home Meds Home Med List reviewed: Reviewed (All relevant home meds ordered) Comments Comments/Follow Ups: Blood pressure currently 119/51 needs monitoring
[2025-08-11 15:52] LABS: EPI 027-NAP1-B1 PRESUMPTIVE NEGATIVE
[2025-08-11 20:02] VITALS: BP 133/76; PULSE 72; RESP 18; TEMP 36.1; O2SAT 95
[2025-08-11] MEDS: Mirtazapine 15 MG TAB 30 MG PO (20:03)
[2025-08-11] MEDS: Simvastatin 20 MG TAB PO (20:03)
[2025-08-12] MEDS: Levothyroxine 88 MCG TAB PO (05:45)
[2025-08-12] MEDS: ALPRAZolam 0.25 MG TAB PO (07:11)
[2025-08-12] MEDS: Citalopram 20 MG TAB PO (07:11)
[2025-08-12] MEDS: glipiZIDE 5 MG TAB 10 MG PO (07:12)
[2025-08-12 07:23] VITALS: BP 145/73; PULSE 72; RESP 17; TEMP 35.5; O2SAT 99
[2025-08-12] MEDS: Enoxaparin 40 MG/0.4 ML SYR SC (07:32)
[2025-08-12] MEDS: Ferrous Gluconate 324 MG TAB PO (07:33)
[2025-08-12] MEDS: metFORMIN 500 MG TAB 1000 MG PO (07:33)
[2025-08-12] MEDS: Furosemide 20 MG TAB PO (07:33)
[2025-08-12] MEDS: Metoprolol CR 100 MG TABCR PO (07:33)
[2025-08-12] MEDS: Nystatin POWDER 15 GM JAR TP (07:34)
[2025-08-12] MEDS: Normal Saline Flush 10 ML SYR IVP (07:34)
--- NOTE | 2025-08-12 10:51 | PTTR_ITS ---
PT Notes Visit Reasons: Failure to Thrive Date: 08/12/2025 PRECAUTIONS: Fall. Standard. Activity as tolerated. SUBJECTIVE: Pt in bed when approached for therapy this morning, agreed to participating with therapy intervention, after she goes to the commode. OBJECTIVE: PAIN: denies VITALS: Monitored by nursing Therapeutic Activities 53169: Direct one-on-one instruction in dynamic activities to improve functional performance. BED MOBILITY/TRANSFERS Rolling L/R: min A Supine-sit: min A Sit-supine: min A Sit-stand: CGA Stand-sit: CGA Bed-Commode: CGA Commode-recliner: [facility] Provided skilled cues and instruction on performance and technique throughout. Gait Training 60924: Direct one-on-one instruction and skilled instruction in: Employing an assistive device Modified weight-bearing status Movement sequencing Turning and movement with proper form Provided verbal cues for equipment management and technique Provided instruction in gait pattern Patient education regarding pacing and breathing techniques to maximize activity tolerance GAIT Assistive Device: FWW Weight bearing: FWB Assist: CGA Distance: 10' Deviation: slow rodolfo, low step height, short step length, heavy reliance on BUE ASSESSMENT: Sit to stand from commode to FWW CGA, static standing during perineal care, able to complete task given enough time to allow pt to perform activity with the least amount of support due to pt getting anxious when supported during activity. PLAN: Continue with balance training, global strengthening and general conditioning for improved safety, mobility and activity tolerance until pt is r asha for DC. TREATMENT CODE/TIME: [id number] 20mins (8:32-8:52am)
--- NOTE | 2025-08-12 11:02 | PDOC.HHF2F_ITS ---
Date of service: 08/12/25 Time of Service: 09:00 Home Health Referral Registered Nurse: Check all that apply Instruct on new or changed medication(s)/assess compliance: Ordered Assess for exacerbation of medical condition, instruct patient/caregivers on signs and symptoms to report for early detection: Ordered Other: Monitor BP/glucose In setting of NICOLE, Lisinopril, metformin and ibuprofen held BMP results to PCP Physical Therapist: Check all that apply Increase strength & endurance for safe mobility at home: Ordered To design/establish home maintenance program: Ordered Fall reduction therapy program for patient with history of frequent falls: Ordered Home safety evaluation and teaching/gait training including stair management (if applicable): Ordered Occupational Therapist: Evaluate and treat for patient unable to perform ADL/IADL/self-care: Ordered Aircraft Structure Mechanic: Assist with community resources: Ordered Assist with terminal block assembler care planning: Ordered Home Bound Status Requires the aid of supportive device (check all that apply): Walker Patient has a condition such that leaving home is medically contraindicated (Describe): Unable to ambulate without device or one person assisting her. She requires stand by assistance. Encounter Date and Reason: I certify that a FTF encounter for this patient was performed on August 12, 2025 and that such encounter was related to the primary reason the patient requires home health services. The encounter was conducted in the following manner: * By me as the certifying physician, TECHNICAL ASST, PA or * By an inpatient physician, TECHNICAL ASST or PA during an inpatient stay who communicated findings to me, Certification And Authentication I certify that I composed the above information based on my clinical judgment relating to this patient's medical condition and, if applicable, clinical findings communicated to me by the NPP or inpatient physician who performed the FTF encounter. Name of Provider that will be monitoring home health services: Geovanna Vazquez
--- NOTE | 2025-08-12 11:03 | W.PM.DS.N ---
Date of service: 08/12/25 Time of Service: 09:00 DS: Diagnosis Discharge Diagnosis (1) Failure to thrive in adult: Status: Acute Asessment and Plan: - Patient again presents to the hospital with generalized weakness though this time there is no medical cause - Was evaluated by physical therapy and determined to be unsafe for discharge home without increased home health services - Will continue to work with physical therapy on regaining strength - Greatly appreciate care management assistance and potential placement for patient (2) Pneumonitis: Status: Ruled-out Asessment and Plan: CT chest in ED suggestive of pneumonitis, started azithromycin Discontinued antibiotics as patient is asymptomatic (3) Hypothyroidism (acquired): Status: Chronic Asessment and Plan: - Continue home Synthroid (4) Non-insulin dependent type 2 diabetes mellitus: Status: Acute Asessment and Plan: - Continue home metformin and glipizide (5) CHF (congestive heart failure): Status: Chronic Asessment and Plan: - Continue home metoprolol succinate twice daily, simvastatin 20, Lasix 20 Discharge Plan Disposition Patient Disposition: Home W/Home Health Services Condition: Fair Discharge Details Reason For Visit: Failure to Thrive Admit Date/Time: 08/08/25 17:23 Admit Provider: Geoffrey Foster Attending Provider: Geoffrey Foster Primary Care Provider: Geovanna Anders Hospital Course Hospital Course: Arlene Wilder is an 79 year old woman presenting August 08 with reported failure to thrive. She has been hospitalized multiple times this year for the same presentation. She has been evaluated by physical therapy, who advise home health services. Her PO intake and mentation have improved and she is safe to return home with home health services. Home Meds and New Rx's Prescriptions: Continued citalopram 20 mg tablet 20 mg PO DAILY metoprolol succinate 100 mg Tablet Extended Release 24 Hr 100 mg PO BID Qty: 0 0RF mirtazapine 30 mg tablet 30 mg PO HS Patient Comments: TAKE ONE TABLET BY MOUTH EVERY DAY metformin 500 mg tablet 1,000 mg PO BID Patient Comments: TAKE TWO TABLETS BY MOUTH TWICE A DAY levothyroxine 88 mcg tablet 88 mcg PO DAILY Patient Comments: TAKE ONE TABLET BY MOUTH EVERY MORNING glipizide 10 mg Tablet 10 mg PO BID simvastatin 20 mg tablet 20 mg PO HS acetaminophen 325 mg Tablet 650 mg PO Q6H PRN PRNQty: 30 0RF furosemide 20 mg Tablet 20 mg PO DAILY Qty: 60 1RF ferrous gluconate 324 mg (38 mg iron) Tablet 324 mg PO DAILY Qty: 60 1RF Discharge Instructions Stand Alone Forms: Nursing Discharge Form Referrals: Geovanna Anders [Primary Care Provider, Medicine] Referral Note: PCP office will give you a call to set up a follow up appointment. If you don't hear from them, please give them a call. Activity:: Activity as Tolerated Equipment/Supplies:: No Equipment Needed Diet:: As Tolerated DS: Summary Time Spent with Patient providing and/or coordinating discharge services: Less than 30 minutes Status at Discharge Functional status at discharge: uses cane/walker Overall status at discharge: patient is back to baseline Mental Status: mental status grossly normal Speech and Movement: speech and movement normal Mood: congruent mood Affect: normal affect Quality:SDOH Health Related Social Needs: Health related social needs daily activities Exam Narrative Exam Narrative: General: This is a pleasant, elderly woman in no distress HEENT: Wounds on top of scalp, dressed. CV: RRR Resp: CTAB Abd: soft, NTND MSK: voluntary motion x4 Neuro: awake, alert, no focal deficits Psych Mental Status: mental status grossly normal Speech and Movement: speech and movement normal Mood: congruent mood Affect: normal affect DS: Data Vitals/I&O Vitals and I&O: Vital Signs Temperature 35.5 C L 08/12/25 07:23 Temperature Source Temporal Artery Scan 08/12/25 07:23 Pulse 72 08/12/25 07:23 Pulse 69 08/08/25 15:40 Respiratory Rate 17 08/12/25 07:23 Respiratory Effort Normal 08/08/25 21:46 Respiratory Depth Normal 08/08/25 21:46 Respiratory Pattern Normal 08/08/25 21:46 Blood Pressure 145/73 H 08/12/25 07:23 Blood Pressure Mean 97 08/12/25 07:23 Pulse Oximetry 99 08/12/25 07:23 Oxygen Delivery Method Room Air 08/12/25 07:23 Oxygen Flow Rate 0 08/12/25 07:23 Pain Level 0 08/12/25 07:23 Intake & Output 08/11/25 08/11/25 08/12/25 11:59 23:59 11:59 Intake Total 180 / 620 440 / 620 340 / 340 Output Total 400 / 400 Balance 180 / 220 40 / 220 340 / 340 Intake: IV 20 / 20 Oral 180 / 600 420 / 600 340 / 340 Output: Urine 400 / 400 Other: Urine Color Yellow Yellow Yellow Urine Appearance Clear Cloudy Urine Odor Normal Normal Normal Comment mixed with stool, unable to measure Stool Size Moderate Small Large Stool Characteristics Liquid Soft Soft Liquid Brown Data Completed and Pending Pending Labs at Discharge: 08/08/25 08/08/25 08/08/25 13:51 13:52 14:51 WBC 8.91 RBC 3.22 L Hgb 9.9 L Hct 30.9 L MCV 96 H MCH 30.7 MCHC 32.0 RDW 16.0 H Plt Count 185 MPV 9.5 Immature Gran % 0.8 Neutrophils % 69.8 Lymphocytes % 14.5 Monocytes % 5.5 Eosinophils % 8.8 Basophils % 0.6 Nucleated RBC % 0.0 Absolute Neutrophils 6.23 Absolute Lymphocytes 1.29 Absolute Monocytes 0.49 Absolute Eosinophils 0.78 H Absolute Basophils 0.05 Sodium 139 Potassium 4.5 Chloride 104 Carbon Dioxide 26.3 Anion Gap 8.7 BUN 28 H Creatinine 1.8 H Est GFR (CKD-EPI 2020) 27.96 Glucose 148 H Calcium 9.4 Magnesium Total Bilirubin 0.2 AST 13 L ALT 17 Alkaline Phosphatase 126 H Troponin I 11 10 Total Protein 7.3 Albumin 3.1 L Lipase 25 Urine Color Yellow Urine Clarity Clear Urine pH 6.0 Ur Specific Hunt 1.010 Urine Protein Negative Urine Ketones Negative Urine Blood Negative Urine Nitrite Negative Urine Bilirubin Negative Urine Urobilinogen 0.2 Ur Leukocyte Esterase Small H Urine RBC 0-2 Urine WBC 3-5 Ur Epithelial Cells Rare Urine Crystals Negative Urine Bacteria Rare Urine Casts Negative Urine Mucus Negative Ur Culture Indicated? No Urine Glucose 100 H Stl C.difficile Tox PCR 08/09/25 08/11/25 06:00 13:30 WBC 10.20 RBC 3.29 L Hgb 10.0 L Hct 31.7 L MCV 96 H MCH 30.4 MCHC 31.5 L RDW 15.9 H Plt Count 191 MPV 9.6 Immature Gran % Neutrophils % Lymphocytes % Monocytes % Eosinophils % Basophils % Nucleated RBC % Absolute Neutrophils Absolute Lymphocytes Absolute Monocytes Absolute Eosinophils Absolute Basophils Sodium 142 Potassium 4.7 Chloride 104 Carbon Dioxide 27.6 Anion Gap 10.4 BUN 30 H Creatinine 1.7 H Est GFR (CKD-EPI 2020) 29.94 Glucose 126 H Calcium 9.5 Magnesium 1.9 Total Bilirubin AST ALT Alkaline Phosphatase Troponin I Total Protein Albumin Lipase Urine Color Urine Clarity Urine pH Ur Specific Hunt Urine Protein Urine Ketones Urine Blood Urine Nitrite Urine Bilirubin Urine Urobilinogen Ur Leukocyte Esterase Urine RBC Urine WBC Ur Epithelial Cells Urine Crystals Urine Bacteria Urine Casts Urine Mucus Ur Culture Indicated? Urine Glucose Stl C.difficile Tox PCR Negative PFSH All Active Problems (Updated 08/09/25 @ 13:03 by Lucius Dent MD) CHF (congestive heart failure) (Chronic) related to Hg 5.7. Resolved. Nl echo Non-insulin dependent type 2 diabetes mellitus (Acute) Failure to thrive in adult (Acute) Debility (Acute) Hypotension (Acute) NICOLE (acute kidney injury) (Acute) Hypothyroidism (acquired) (Chronic) Hypomagnesemia (Acute) Ambulatory dysfunction (Acute) Acute UTI (Acute) General weakness (Acute) Hx of falling (Acute) Medical History Acute pain of right hip Acute UTI Osteopenia Glaucoma Trochanteric bursitis Atrial fibrillation with RVR Related hg 5.7, isolated CHF (congestive heart failure) related to Hg 5.7. Resolved. Nl echo Anemia Atrial fibrillation Leucocytosis Acute CHF DVT prophylaxis Abnormal finding on breast imaging Goiter Pleural effusion Acute dyspnea Squamous cell cancer of scalp and skin of neck Breast cancer Hypercholesterolemia HTN (hypertension) Diabetes mellitus Surgical History History of thoracentesis (~03/2025) S/P skin and subcutaneous tissue surgery S/P breast lumpectomy Social History Smoking/Tobacco Use Status: Never Smoking risk assessment performed?: Yes Alcohol Intake: never Drug use: Never Substance use type: does not use Housing: house Do you feel safe at home: Yes Do you feel safe in your relationship?: Yes Time Spent with Patient Time Spent with Patient: <45 minutes Time was spent: preparing to see the patient(eg.review tests), obtaining and/or reviewing separately otained hiistory, ordering medications,tests, procedures, referring, communicating with other health director of primary care, indepentently interpreting results, counseling the patient and care coordination
--- NOTE | 2025-08-12 18:28 | PDOC.CMDIS ---
Date of service: 08/12/25 Time of Service: 18:28 LACE Index Scoring Tool Questions: Length of Stay (in days): 4 - 6 Was the patient admitted via the E.D.?: Yes Comorbidities: Diabetes w/o Complication, Congestive Heart Failure and Any Tumor E.D. Visits: 2 Answers: Total Score: 14 Risk of Readmission: High Risk Care Management Discharge Plan Reason for Hospitalization: failure to thrive/weakness Discharge Plan: Arlene was discharged home with new homecare services of SN, PT/OT and [facility]. She will f/u with her PCP and continue per her plan of care. She was transported home via [facility] wheelchair van. Her was present here this morning, and left shortly before Arlene so he could meet her at home. Patient/Family Education Needs: Review of discharge instructions, activity, limitations, and discuss Ask me 3. Services Needed at Discharge: Home Health Care Services (SN, PT/OT and TECHNOLOGY TE[employer]) SDOH Health Related Social Needs: Health related social needs daily activities
== END 2025-08-12 13:00 | disposition home health service (06) ==
LOC: ER 17:30 → MS 18:28
PROVIDERS: Physician Assistant; Admitting Provider Family Medicine; Emergency Provider Physician Assistant; PCP Nurse Practitioner Family; Responsible Provider Family Medicine; Visit Provider Family Medicine
DX: R53.1 Weakness (principal); R62.7 Adult failure to thrive; E03.9 Hypothyroidism, unspecified; I50.9 Heart failure, unspecified; E11.9 Type 2 diabetes mellitus without complications; I48.91 Unspecified atrial fibrillation; I11.0 Hypertensive heart disease with heart failure; Z87.440 Personal history of urinary (tract) infections; R53.81 Other malaise; Z91.81 History of falling; E83.42 Hypomagnesemia; M85.80 Other specified disorders of bone density and structure, unspecified site; H40.9 Unspecified glaucoma; D64.9 Anemia, unspecified; Z85.3 Personal history of malignant neoplasm of breast; E78.00 Pure hypercholesterolemia, unspecified; Z79.84 Long term (current) use of oral hypoglycemic drugs
CPT/HCPCS: 00123; 36415; 80048; 80053; 83690; 85027; 93005; 97162; 97530; 99285; J1650; 71046; 74176; 81003; 81015; 83735; 84484; 85025; 93010; 99223; 99231; 99232; 99238; G0378

== ENCOUNTER 2025-08-13 17:32 | Observation (INO) | payer MEDICARE, MEDICAID, SELFPAY ==
[2025-08-13] VITALS (28 sets, daily range): BP systolic 133–162; BP diastolic 52–135; PULSE 69–91; RESP 16–17; TEMP 36.3–36.9; O2SAT 80–100
--- NOTE | 2025-08-13 18:15 | DI.RAD_ITS ---
Exam(s) XR CHEST 2V PA LATERAL EXAM: XR CHEST 2V PA LATERAL CLINICAL HISTORY: shortness of breath. TECHNIQUE: 2D digital imaging was performed. COMPARISON: CT CT ABDOMEN PELVIS WO from 08/08/2025 FINDINGS: 2 views: Distal tip of the right-sided Port-A-Cath is at the SVC-RA junction. Heart size is normal. The mediastinum is not widened. Right lung is clear. Mild increased markings in left lower lobe retrocardiac region again noted. Please note that CT scan of 08/08/2025 revealed nodular infiltrates at this location in the posterior basal segment of the left lower lobe. There are no pleural effusions. No pulmonary edema. IMPRESSION: Mild persistent increased markings in the left lower lobe posterior basal segment. DATA REPOSITORY: RADIATION DOSE DELIVERED:
--- NOTE | 2025-08-13 18:46 | W.ED.GENAD ---
Discharge Plan Disposition Patient Disposition: Admit to [facility] Condition: Stable Discharge Details Clinical Impression: Failure to thrive in adult, Debility, General weakness Admit Date/Time: 08/13/25 20:37 Admit Provider: Cole Alejandre Attending Provider: Cole Alejandre Primary Care Provider: Geovanna Anders ED Provider: Bobbi Egan Discharge Data Discharge Date/Time-TO BE ENTERED AT DEPARTURE: 08/13/25 21:17 HPI General Date/Time Provider Initiated Documentation: 08/13/25 18:24. 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 She was discharged yesterday and saw too long and was unable to get up. EMS was called as patient was unable to ambulate. Patient denies any current complaints. She just states that her legs are too weak to stand when she has been sitting for a long time. She denies any headache, chest pain, shortness of breath, dizziness. Related Data Home Medications Medication Instructions Recorded Confirmed glipizide 10 mg tablet 10 mg PO BID 07/12/21 08/13/25 metoprolol succinate 100 mg 100 mg PO BID #0 tabs 05/08/22 08/13/25 tablet,extended release 24 hr citalopram 20 mg tablet 20 mg PO DAILY 12/30/22 08/13/25 simvastatin 20 mg tablet 20 mg PO HS 12/30/22 08/13/25 acetaminophen 325 mg tablet 650 mg (2 x 325 mg) PO Q6H PRN PRN 06/20/23 08/13/25 #30 tabs ferrous gluconate 324 mg (38 mg 324 mg PO DAILY #60 tabs 07/12/23 08/13/25 iron) tablet furosemide 20 mg tablet 20 mg PO DAILY #60 tabs 07/12/23 08/13/25 mirtazapine 30 mg tablet 30 mg PO HS 08/01/25 08/13/25 levothyroxine 88 mcg tablet 88 mcg PO DAILY 08/02/25 08/13/25 metformin 500 mg tablet 1,000 mg PO BID 08/02/25 08/13/25 Previous Rx's Medication Instructions Recorded metoprolol succinate 100 mg 100 mg PO BID #0 tabs 05/08/22 tablet,extended release 24 hr acetaminophen 325 mg tablet 650 mg (2 x 325 mg) PO Q6H PRN PRN 06/20/23 #30 tabs ferrous gluconate 324 mg (38 mg 324 mg PO DAILY #60 tabs 07/12/23 iron) tablet furosemide 20 mg tablet 20 mg PO DAILY #60 tabs 07/12/23 Allergies Allergy/AdvReac Type Severity Reaction Status Date / Time doxazosin (From Cardura) Allergy Intermediate Unknown Verified 08/01/25 17:14 sitagliptin (From Januvia) Allergy Intermediate Unknown Verified 08/01/25 17:14 famotidine Allergy Unknown Other (See Verified 08/01/25 17:14 Comment) empagliflozin (From Allergy Unknown Verified 08/01/25 17:14 Jardiance) General Stated Complaint: GenMedical ZAKIA: 4 Exam Narrative Exam Narrative: This 79-year-old female is alert and oriented, appears chronically ill answering questions appropriately strength and sensation intact all 4 extremities no abdominal tenderness lungs clear to auscultation cardiac rate rhythm regular Course Vital Signs Vital signs: Vital Signs Temperature 36.9 C 08/13/25 17:35 Pulse 82 08/13/25 17:35 Respiratory Rate 16 08/13/25 17:35 Blood Pressure 155/52 H 08/13/25 17:35 Pulse Oximetry 99 08/13/25 17:35 Temperature 36.9 C 08/13/25 18:03 Pulse 82 08/13/25 18:03 Respiratory Rate 16 08/13/25 18:03 Respiratory Effort Normal 08/13/25 18:04 Blood Pressure 155/52 H 08/13/25 18:03 Pulse Oximetry 99 08/13/25 18:03 Oxygen Delivery Method Room Air 08/13/25 18:03 Oxygen Flow Rate 0 08/13/25 18:03 Medical Decision Making Results: CBC, CMP within normal limits for patient including creatinine and BUN which is her baseline urinalysis still pending chest x-ray without acute abnormality some nodular infiltrates which are persistent and do not appear to be worsening Assessment and plan: This is patient's third visit for weakness she was discharged 1 day prior to arrival today. Apparently admitted for failure to thrive without obvious medical diagnosis but unable to ambulate safely and cannot assist her appropriately at home. Tonight she had been sitting for an extended period of time and could not stand independently and attempted to help but was unsuccessful. EMS was called. At this time patient understands that she will likely need some rehabilitation on an inpatient basis. She has no acute medical diagnoses that I can see although she is pending urinalysis at this time. She is comfortable with admission. Plan was discussed with patient's . Case discussed with hospitalist service who will accept patient to their service at this time. Patient eating and drinking well in the emergency department in no acute distress and at baseline mentation Quality:SDOH Health Related Social Needs: Health related social needs daily activities PFSH All Active Problems (Updated 08/13/25 @ 21:21 by DIEGO Beard) CKD (chronic kidney disease) (Chronic) Depression (Chronic) CHF (congestive heart failure) (Chronic) related to Hg 5.7. Resolved. 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) Failure to thrive in adult (Acute) Debility (Acute) Hypotension (Acute) NICOLE (acute kidney injury) (Acute) Hypothyroidism (acquired) (Chronic) Hypomagnesemia (Acute) Ambulatory dysfunction (Acute) Acute UTI (Acute) General weakness (Acute) Hx of falling (Acute) Medical History Acute pain of right hip Acute UTI Osteopenia Glaucoma Trochanteric bursitis Atrial fibrillation with RVR Related hg 5.7, isolated Anemia Atrial fibrillation Leucocytosis Acute CHF DVT prophylaxis Abnormal finding on breast imaging Goiter Pleural effusion Acute dyspnea Squamous cell cancer of scalp and skin of neck Breast cancer Hypercholesterolemia HTN (hypertension) Diabetes mellitus Surgical History History of thoracentesis (~03/2025) S/P skin and subcutaneous tissue surgery S/P breast lumpectomy Social History Smoking/Tobacco Use Status: Never Smoking risk assessment performed?: Yes Alcohol Intake: never Drug use: Never Substance use type: does not use Housing: house Do you feel safe at home: Yes Do you feel safe in your relationship?: Yes
[2025-08-13 19:29] LABS: Abs Immature Grans 0.06 10^3/uL (0.0-0.06); HCT 36.3 % (36.0-46.0); HGB 11.7 g/dL (11.2-15.7); Immature Grans % 0.6 %; MCH 31.2 pg (27.0-33.0); MCHC 32.2 % (32.0-36.0); MCV 97 fL (80-95); MPV 9.9 fL (8.0-11.0); Platelet Count 207 10^3/uL (130-400); RBC 3.75 10^6/uL (3.93-5.22); RDW 15.7 % (11.7-14.6); RDW-SD 56.0 fL; WBC 10.07 10^3/uL (4.4-10.8)
[2025-08-13 19:58] LABS: ALT 19 U/L (14-59); AST 13 U/L (15-37); Albumin 3.3 g/dL (3.4-5.0); Alkaline Phosphatase 129 U/L (46-116); Anion Gap 10.6 mmol/L (3-11); BUN 44 mg/dL (7-18); Bilirubin, Total 0.2 mg/dL (0.2-1.0); CO2 27.4 mmol/L (21.0-32.0); Calcium 9.9 mg/dL (8.5-10.1); Chloride 105 mmol/L (98-107); Glucose 115 mg/dL (74-106); Potassium 4.5 mmol/L (3.5-5.1); Sodium 143 mmol/L (136-145); Total Protein 8.2 g/dL (6.4-8.2)
--- NOTE | 2025-08-13 20:24 | W.PM.HP.N ---
Date of service: 08/13/25 Time of Service: 20:24 Assessment and Plan Assessment and plan (1) Failure to thrive in adult: Start date: 08/13/25 Status: Acute Assessment and plan: This is an 79-year-old lady who has had repeated admissions for failure to thrive. She still has no acute decompensation obvious other than inability to walk safely at home, perform independent ADL activity and self-care and frequent falls the patient not having a fear of falling. She has had no injuries from her falls. She does not apparently have a weak current UTI but urinalysis is pending. She also has hypothyroidism with a TSH elevated but this can be followed and adjusted as an outpatient. This is not an acute process. She will be admitted for reevaluation or permanent placement but her unable to take care of her at home. They have both come to this conclusion recently. She is a DNR/DNI. (2) Ambulatory dysfunction: Start date: 08/13/25 Status: Chronic Assessment and plan: This been a problem that has worsened and will be reevaluated by physical therapy. She needs to ambulate safely. (3) Intertriginous candidiasis: Start date: 08/13/25 Status: Acute Assessment and plan: Nystatin powder and skin care. (4) Non-insulin dependent type 2 diabetes mellitus: Status: Chronic Assessment and plan: Hold outpatient medical therapy and glucometer measurements before meals and at bedtime with sensitive sliding scale insulin coverage while hospitalized. Restart outpatient medical therapy when discharged to a nursing facility for maintenance care. (5) CHF (congestive heart failure): Status: Chronic Assessment and plan: Continue outpatient medical therapy. Skin care of chronic changes in lower extremities. (6) HTN (hypertension): Assessment and plan: Continue outpatient medical therapy adjusting as needed. (7) Atrial fibrillation: Assessment and plan: Continue outpatient medical therapy with patient not on chronic oral anticoagulation but will have DVT prophylaxis while in the hospital. She may not be a candidate for long-term anticoagulation with risk of falling but this could be reconsidered if she is in the shelter and they are supervised. (8) Depression: Status: Chronic Assessment and plan: Begin outpatient medical therapy. This does not appear to be exacerbated. (9) CKD (chronic kidney disease): Status: Chronic Assessment and plan: Stable with monitoring. (10) Hypothyroidism (acquired): Status: Chronic Assessment and plan: TSH is elevated but no adjustment of outpatient medical therapy. She may not be taking her medicines at home and in a supervised environment this may be better evaluated for adjustment. 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 Patient is a DNR/DNI. History of Present Illness History of Present Illness Chief Complaint: Continued inability to walk at home with frequent falls. Narrative: This is an 79-year-old female patient who was first hospitalized 08/01/2025 with weakness and inability to walk at home. At that time was thought that she may have an acute UTI does have a history of amatory dysfunction and frequent falls at home. Since that hospitalization she has been in the hospital twice with failure to thrive and continued inability to walk safely at home. She was to be placed to a nursing facility for continued management with her not able to take care of her at home but thus far the patient and her have been deferring this placement. They both are now ready for her to be placed for maintenance care facility having failure to thrive with no specific system failure or cause other than generalized weakness. She has no urinary complaints and no other new complaints. See previous H&P's and discharge summaries. Patient was initially hospitalized for what seem to be a UTI with slow rehabilitation with physical therapy and then was re-hospitalized with failure to thrive with physical therapy reevaluation with placement discussed but deferred. There is no apparent acute medical problem this hospitalization as well and urinalysis will be rechecked. She does have hypothyroidism but is on supplement and TSH is elevated but not severely with adjustment of Synthroid not necessary at this time but can be followed up as an outpatient. She does have a history of breast cancer with metastases and skull resection with no apparent active metastatic disease. She has had no weight loss and in fact is obese with some intertriginous rash from being unkempt at home with decreased activity. She will be admitted for discussion of placement and physical therapy reevaluation. She is a DNR/DNI. Review of Systems Narrative: 13 point review of systems otherwise unrevealing or stable. PFSH All Active Problems (Updated 08/14/25 @ 06:36 by Cole Alejandre) Intertriginous candidiasis (Acute) CKD (chronic kidney disease) (Chronic) Depression (Chronic) CHF (congestive heart failure) (Chronic) related to Hg 5.7. Resolved. 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) Failure to thrive in adult (Acute) Debility (Acute) Hypotension (Acute) NICOLE (acute kidney injury) (Acute) Hypothyroidism (acquired) (Chronic) Hypomagnesemia (Acute) Ambulatory dysfunction (Chronic) Acute UTI (Acute) General weakness (Acute) Hx of falling (Acute) Medical History Acute pain of right hip Acute UTI Osteopenia Glaucoma Trochanteric bursitis Atrial fibrillation with RVR Related hg 5.7, isolated Anemia Atrial fibrillation Leucocytosis Acute CHF DVT prophylaxis Abnormal finding on breast imaging Goiter Pleural effusion Acute dyspnea Squamous cell cancer of scalp and skin of neck Breast cancer Hypercholesterolemia HTN (hypertension) Diabetes mellitus Surgical History History of thoracentesis (~03/2025) S/P skin and subcutaneous tissue surgery S/P breast lumpectomy Social History Smoking/Tobacco Use Status: Never Smoking risk assessment performed?: Yes Alcohol Intake: never Drug use: Never Substance use type: does not use Housing: house Do you feel safe at home: Yes Do you feel safe in your relationship?: Yes Meds Allergies and Home Medications Allergies Allergy/AdvReac Type Severity Reaction Status Date / Time doxazosin (From Cardura) Allergy Intermediate Unknown Verified 08/01/25 17:14 sitagliptin (From Januvia) Allergy Intermediate Unknown Verified 08/01/25 17:14 famotidine Allergy Unknown Other (See Verified 08/01/25 17:14 Comment) empagliflozin (From Allergy Unknown Verified 08/01/25 17:14 Jardiance) Home Medications Medication Instructions Recorded Confirmed Type glipizide 10 mg tablet 10 mg PO BID 07/12/21 08/13/25 History metoprolol succinate 100 mg 100 mg PO BID #0 tabs 05/08/22 08/13/25 Rx tablet,extended release 24 hr citalopram 20 mg tablet 20 mg PO DAILY 12/30/22 08/13/25 History simvastatin 20 mg tablet 20 mg PO HS 12/30/22 08/13/25 History acetaminophen 325 mg tablet 650 mg (2 x 325 mg) PO Q6H PRN PRN 06/20/23 08/13/25 Rx #30 tabs ferrous gluconate 324 mg (38 mg 324 mg PO DAILY #60 tabs 07/12/23 08/13/25 Rx iron) tablet furosemide 20 mg tablet 20 mg PO DAILY #60 tabs 07/12/23 08/13/25 Rx mirtazapine 30 mg tablet 30 mg PO HS 08/01/25 08/13/25 History levothyroxine 88 mcg tablet 88 mcg PO DAILY 08/02/25 08/13/25 History metformin 500 mg tablet 1,000 mg PO BID 08/02/25 08/13/25 History Exam Narrative Exam Narrative: General: Patient appears appropriate for age, alert and oriented x 3 and in no acute distress. She is lying comfortably sitting up in bed. HEENT: Normocephalic though abnormal scalp over the frontal and parietal aspects with atrophy from previous skin grafting with a clear line at her superior forehead. Otherwise atraumatic. Eyes with pupils equal and reactive to light symmetrically, extraocular movement intact and sclera anicteric. Oropharynx with slightly dry mucosa and fair dentition. Neck: Supple without JVD. Back: Kyphotic without CVA tenderness. Lungs: Fair aeration and clear to auscultation percussion with no focalizing rales or rhonchi. No expiratory wheeze. Breast: Exam deferred with patient having previous surgery on her right breast. Heart: Irregular rhythm and with normal rate, 3/6 systolic murmur over left renal border. No gallop or rub. Abdomen: Obese contour, soft and nontender to palpation with no palpable hepatosplenomegaly. Bowel sounds positive in all quadrants. No guarding or rebound. Genitalia/rectal: Exam deferred. Extremities: Without clubbing, cyanosis or pitting edema with lower extremities obese. Good capillary refill. Skin: Skin changes over scalp from skin grafting with dry ulcers covered with bandage posteriorly over grafting, otherwise normal color, warm and dry. Slightly moist intertriginous erythematous rash under breast folds and abdominal pannus fold. Neuro: Cranial nerves II through XII gross intact, no focalizing motor deficits and no tremor. Patient able to move lower extremities but is generally weak. No Babinski. DTRs are physiologic and symmetrical. Psych: Normal affect and mood. No abnormal thought processes. Remote recent memory intact. Results Labs 08/13/25 19:15 08/13/25 19:15 Labs: Laboratory Results - last 24 hr 08/13/25 19:15 WBC 10.07 RBC 3.75 L Hgb 11.7 Hct 36.3 MCV 97 H MCH 31.2 MCHC 32.2 RDW 15.7 H Plt Count 207 MPV 9.9 Immature Gran % 0.6 Neutrophils % 71.4 Lymphocytes % 15.0 Monocytes % 5.2 Eosinophils % 7.4 Basophils % 0.4 Nucleated RBC % 0.0 Absolute Neutrophils 7.19 H Absolute Lymphocytes 1.51 Absolute Monocytes 0.52 Absolute Eosinophils 0.75 H Absolute Basophils 0.04 Sodium 143 Potassium 4.5 Chloride 105 Carbon Dioxide 27.4 Anion Gap 10.6 BUN 44 H Creatinine 1.8 H Est GFR (CKD-EPI 2020) 27.96 Glucose 115 H Calcium 9.9 Total Bilirubin 0.2 AST 13 L ALT 19 Alkaline Phosphatase 129 H Total Protein 8.2 Albumin 3.3 L Last Vital Signs Temp 36.9 C 08/13/25 18:03 Pulse 78 08/13/25 20:06 Resp 16 08/13/25 18:03 BP 149/63 H 08/13/25 20:06 Pulse Ox 99 08/13/25 20:06 Time Spent Time spent with Patient: >75 minutes Time was spent: preparing to see the patient(eg.review tests), obtaining and/or reviewing separately otained hiistory, ordering medications,tests, procedures, indepentently interpreting results, counseling the patient and care coordination
--- NOTE | 2025-08-13 21:23 | W.PC.ACHO ---
Registration Status: ADM IN Primary Language: Preferred Language: Kyrgyz ED Information & Data Chief Complaint GenMedical 08/13/25 18:47 Triage Note pt afraid to fall at home. 08/13/25 17:35 Did not fall at home, but has anxiety about it. Medical / Surgical History (Last Reviewed 08/13/25 @ 20:25 by Cole Alejandre) Acute pain of right hip Acute UTI Osteopenia Glaucoma Trochanteric bursitis Atrial fibrillation with RVR Anemia Atrial fibrillation Leucocytosis Acute CHF DVT prophylaxis Abnormal finding on breast imaging Goiter Pleural effusion Acute dyspnea Squamous cell cancer of scalp and skin of neck Breast cancer Hypercholesterolemia HTN (hypertension) Diabetes mellitus (Last Reviewed 08/13/25 @ 20:25 by Cole Alejandre) History of thoracentesis (~03/2025) S/P skin and subcutaneous tissue surgery S/P breast lumpectomy Most Recent Vital Signs Temperature 36.9 C 08/13/25 18:03 Pulse 78 08/13/25 20:06 Respiratory Rate 16 08/13/25 18:03 Respiratory Effort Normal 08/13/25 18:04 Blood Pressure 149/63 H 08/13/25 20:06 Blood Pressure Mean 90 08/13/25 20:06 Pulse Oximetry 99 08/13/25 20:06 Oxygen Delivery Method Room Air 08/13/25 18:03 Oxygen Flow Rate 0 08/13/25 18:03 Allergies doxazosin (From Cardura) Allergy (Intermediate, Verified 08/01/25 17:14) Unknown sitagliptin (From Januvia) Allergy (Intermediate, Verified 08/01/25 17:14) Unknown famotidine Allergy (Unknown, Verified 08/01/25 17:14) Other (See Comment) empagliflozin (From Jardiance) Allergy (Verified 08/01/25 17:14) Unknown Diagnostics 08/13/25 Range/Units 19:15 WBC 10.07 (4.4-10.8) 10^3/uL RBC 3.75 L (3.93-5.22) 10^6/uL Hgb 11.7 (11.2-15.7) g/dL Hct 36.3 (36.0-46.0) % MCV 97 H (80-95) fL MCH 31.2 (27.0-33.0) pg MCHC 32.2 (32.0-36.0) % RDW 15.7 H (11.7-14.6) % Plt Count 207 (130-400) 10^3/uL MPV 9.9 (8.0-11.0) fL Immature Gran % 0.6 % Neutrophils % 71.4 % Lymphocytes % 15.0 % Monocytes % 5.2 % Eosinophils % 7.4 % Basophils % 0.4 % Nucleated RBC % 0.0 (0.0-0.3) % Absolute Neutrophils 7.19 H (1.2-6.7) 10^3/uL Absolute Lymphocytes 1.51 (1.2-3.4) 10^3/uL Absolute Monocytes 0.52 (0.1-0.8) 10^3/uL Absolute Eosinophils 0.75 H (0.0-0.7) 10^3/uL Absolute Basophils 0.04 (0.0-0.2) 10^3/uL Sodium 143 (136-145) mmol/L Potassium 4.5 (3.5-5.1) mmol/L Chloride 105 (98-107) mmol/L Carbon Dioxide 27.4 (21.0-32.0) mmol/L Anion Gap 10.6 (3-11) mmol/L BUN 44 H (7-18) mg/dL Creatinine 1.8 H (0.55-1.02) mg/dL Est GFR (CKD-EPI 2020) 27.96 (mL/min/1.73m2) Glucose 115 H (74-106) mg/dL Calcium 9.9 (8.5-10.1) mg/dL Total Bilirubin 0.2 (0.2-1.0) mg/dL AST 13 L (15-37) U/L ALT 19 (14-59) U/L Alkaline Phosphatase 129 H (46-116) U/L Total Protein 8.2 (6.4-8.2) g/dL Albumin 3.3 L (3.4-5.0) g/dL Intake and Output - 24 Hour Total 08/13/25 17:28 thru 08/13/25 17:35 Weight 93.44 kg Falls Risk Assessment History of Falls No History 08/13/25 18:04 Contributing Factors Confusion,Unstable, 08/13/25 18:04 Impairments Ambulatory Aids Independent 08/13/25 18:04 Tubes/Lines None 08/13/25 18:04 Gait Evaluation W/any additional score 08/13/25 18:04 Cognition Cognitive impairment 08/13/25 18:04 Fall Total Score 44 08/13/25 18:04 Level of Risk Moderate Risk 08/13/25 18:04 Problems (Last Reviewed 08/13/25 @ 20:25 by Cole Alejandre) CKD (chronic kidney disease) (Chronic) Depression (Chronic) CHF (congestive heart failure) (Chronic) 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 Information / Comments: pt just [facility] on [facility], she still not have enough strength to get up from sitting position, opt has a lot of anxiety, no iv access, no pain, no SOB, Report received from: [facility]
[2025-08-13 22:11] LABS: TSH (W/Ref FT4) 6.05 uIU/mL (0.36-3.74)
[2025-08-13] MEDS: Mirtazapine 15 MG TAB 30 MG PO (22:34)
[2025-08-14 03:13] VITALS: BP 156/56; PULSE 77; RESP 18; TEMP 36.1; O2SAT 96
[2025-08-14] MEDS: Levothyroxine 88 MCG TAB PO (05:09)
[2025-08-14 06:05] LABS: Glucose Negative (Negative)
[2025-08-14 06:10] LABS: C & S Indicated? No; RBC Negative HPF (0-2); WBC 0-2 HPF (0-5)
[2025-08-14 06:26] LABS: HCT 31.5 % (36.0-46.0); HGB 10.2 g/dL (11.2-15.7); MCH 31.6 pg (27.0-33.0); MCHC 32.4 % (32.0-36.0); MCV 98 fL (80-95); MPV 10.1 fL (8.0-11.0); Platelet Count 178 10^3/uL (130-400); RBC 3.23 10^6/uL (3.93-5.22); RDW 15.9 % (11.7-14.6); RDW-SD 57.3 fL; WBC 8.35 10^3/uL (4.4-10.8)
[2025-08-14 06:52] LABS: ALT 18 U/L (14-59); AST 12 U/L (15-37); Albumin 2.9 g/dL (3.4-5.0); Alkaline Phosphatase 112 U/L (46-116); Anion Gap 8.2 mmol/L (3-11); BUN 41 mg/dL (7-18); Bilirubin, Total 0.3 mg/dL (0.2-1.0); CO2 26.8 mmol/L (21.0-32.0); Calcium 9.5 mg/dL (8.5-10.1); Chloride 107 mmol/L (98-107); Glucose 126 mg/dL (74-106); Magnesium 1.8 mg/dL (1.8-2.4); Potassium 4.1 mmol/L (3.5-5.1); Sodium 142 mmol/L (136-145); Total Protein 7.1 g/dL (6.4-8.2)
[2025-08-14 08:01] VITALS: BP 136/56; PULSE 78; RESP 17; TEMP 36.7; O2SAT 99
[2025-08-14] MEDS: Citalopram 20 MG TAB PO (08:25)
[2025-08-14] MEDS: Furosemide 20 MG TAB PO (08:25)
[2025-08-14] MEDS: Ferrous Gluconate 324 MG TAB PO (08:25)
[2025-08-14] MEDS: Metoprolol CR 100 MG TABCR PO ×2 (08:26→20:09)
--- NOTE | 2025-08-14 08:31 | PDOC.CMIN ---
Date of service: 08/14/25 Time of Service: 08:31 Care Management Initial Assmt Initial Assessment Reason for Hospitalization: Failure to thrive Functional Status/Living Situation Patient Presentation: Arlene was awake and lying in bed when CM met with her. Her Quirino was present at the bedside, both are pleasant and easily engage in conversation. Arlene expressed her motivation to become more ambulatory, so she can get back home to her dog. Per pt, she has been bed bound for over a month and feels quite weak. She took a good fall a few years ago, and has since developed an intense fear of falling, especially when she experiences weakness. She states, Every time I stand up, I get severe anxiety. She asked whether there is a medication that can help with her with her fear of falling? CM made note of her question on her white board to help facilitate further discussion with the medical team. In addition, Quirino shared that he and Arlene have been for 46 years as of last week, and he is still expresses that he is still content being her primary caregiver (as he's done for the last couple of years.) Quirino appears to be in good physical shape, he drives and is fully independent at his baseline. He reports that Arlene has been able to get around their home independently with a walker up until about a month ago and notes that STR has been helpful in the past and Arlene very much agrees. Arlene does not have a qualifying stay for STR but because she is ACO attribute is eligible for STR at [facility] contracted facilities. CM sent referrals, please see list below. In the meantime, Arlene will remain at [facility] continue to work with PT while here. Also today, Quirino connected with Alla from the [facility] and they begun working on her LTM and revisited increasing caregiver supports, which had previously been offered, but no accepted. CM will continue to follow. Pending [facility] No Bed Offer [facility]-not open to admissions [facility]-declined Town of Residence: [place] Resides with: Spouse ( Quirino) Significant Other/Family: Local Natural Supports: Supportive neighbors Misti and her Patient also has a sister that lives in [place]. 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) Instrumental Activities of Daily Living (ADLs): Requires support Medications Medication Management: No Issues/Barriers identified Physical Functioning/Mobility Assistive Device: Wheelchair, walker, ramp, uses rct w/c van prn Advance Directives Advance Directives: Do you have an Advance Directive: Y 02/28/25, 08:30 AD On File at [facility]: Y 02/28/25, 08:30 Date Asked 02/28/25 Today, 03:18 AD Date Reviewed 08/13/25 Today, 03:18 COLST On File at [facility] No 01/27/24, 08:54 COLST Date Scanned Code Status Resuscitation Status DNR/DNI Portal Pt does not currently have a portal and education provided: Yes Insurance Coverage/Financial Issues Insurance: Medicare Part A & B - [id number] Medicaid of [place] - [id number] Financial Issues: If patient gets accepted to a STR that requires travel, [place] would benefit from a gas card(s) so he can visit a few times per week. CM will contact [facility]W at [facility] once dispo is known. Care Team Visit Care Team Role Provider Type Renetta Cheung APRN MD [facility] STAFF PHYSICIAN Geovanna Anders Primary Care Provider NURSE PRACTITIONER Oneyda Fairchild RDN, [facility] [place][NOTE 2] Other Providers GENERAL PURCHASING AGENT Santiago Escobedo Other Providers OTHER Samir Moncada RDN Other Providers GENERAL PURCHASING AGENT DIEGO Beard Emergency Provider PHYSICIANS CERTIFIED MORTICIAN Cole Alejandre Admit Provider NON-[facility] STAFF PHYSICIAN Attending Provider Discharge Potential Discharge Needs: PCP F/U Appt Anticipated Barriers to Discharge: Bed availability Patient/Family Education Needs: Review discharge instructions, discuss Ask Me Three Transportation: RCT RCT Transportation: Wheel chair van Plan: Arlene requires STR for strengthening prior to returning home. She does not have a qualifying stay, although is ACO attributed therefor referral options are limited and were sent to the above facilities. Transportation will be determined by disposition. [facility] to continue to support patient with LTM and getting increased caregiver support in the home. CM will follow. Social Determinants of Health Screening Will the Patient Participate in the Screening?: Declined to provide PFSH All Active Problems (Updated 08/14/25 @ 13:39 by Renetta Cheung APRN) (HFpEF) heart failure with preserved ejection fraction (Acute) Abnormal urinalysis (Acute) Obesity (BMI 30.0-34.9) (Acute) Intertriginous candidiasis (Acute) CKD (chronic kidney disease) (Chronic) Depression (Chronic) CHF (congestive heart failure) (Chronic) related to Hg 5.7. Resolved. 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) Failure to thrive in adult (Acute) Debility (Acute) Hypotension (Acute) NICOLE (acute kidney injury) (Acute) Hypothyroidism (acquired) (Chronic) Hypomagnesemia (Acute) Ambulatory dysfunction (Chronic) Acute UTI (Acute) General weakness (Acute) Hx of falling (Acute) Medical History Acute pain of right hip Acute UTI Osteopenia Glaucoma Trochanteric bursitis Atrial fibrillation with RVR Related hg 5.7, isolated Anemia Atrial fibrillation Leucocytosis Acute CHF DVT prophylaxis Abnormal finding on breast imaging Goiter Pleural effusion Acute dyspnea Squamous cell cancer of scalp and skin of neck Breast cancer Hypercholesterolemia HTN (hypertension) Diabetes mellitus Surgical History History of thoracentesis (~03/2025) S/P skin and subcutaneous tissue surgery S/P breast lumpectomy Social History Smoking/Tobacco Use Status: Never Smoking risk assessment performed?: Yes Alcohol Intake: never Drug use: Never Substance use type: does not use Housing: house Do you feel safe at home: Yes Do you feel safe in your relationship?: Yes
[2025-08-14] MEDS: Enoxaparin 30 MG/0.3 ML SYR SC (08:33)
[2025-08-14] MEDS: Nystatin POWDER 60 GM JAR TP ×2 (11:32→20:17)
--- NOTE | 2025-08-14 11:47 | PHA.REVIEW2 ---
Pharmacy Admission Review Admission Clinical Review Admission Pharmacy Review: Intertriginous candidiasis (Acute) Failure to thrive in adult (Acute) doxazosin (From Cardura) Allergy (Intermediate, Verified 08/01/25 17:14) Unknown sitagliptin (From Januvia) Allergy (Intermediate, Verified 08/01/25 17:14) Unknown famotidine Allergy (Unknown, Verified 08/01/25 17:14) Other (See Comment) empagliflozin (From Jardiance) Allergy (Verified 08/01/25 17:14) Unknown Resuscitation Status DNR/DNI Height 5 ft 7 in Weight 93.44 kg Comments Comments/Follow Ups: discharge pending SNF placement? Pharmacy Admission Review Renal Dosing Renal Dosing: BUN 41 mg/dL (7-18) H 08/14/25 06:10 Creatinine 1.8 mg/dL (0.55-1.02) H 08/14/25 06:10 Medications needing adjustments: Reviewed (CrCl 28.77 mL/min) List of meds needing interventions: Current medications are okay Anticoagulation Anticoagulation: Hgb 10.2 g/dL (11.2-15.7) L 08/14/25 06:10 Hct 31.5 % (36.0-46.0) L 08/14/25 06:10 Plt Count 178 10^3/uL (130-400) 08/14/25 06:10 Creatinine 1.8 mg/dL (0.55-1.02) H 08/14/25 06:10 DVT Prophylaxis: Reviewed Medications: Enoxaparin (30mg daily ) Relevant Labs Relevant Labs: Sodium 142 mmol/L (136-145) 08/14/25 06:10 Potassium 4.1 mmol/L (3.5-5.1) 08/14/25 06:10 Chloride 107 mmol/L (98-107) 08/14/25 06:10 Magnesium 1.8 mg/dL (1.8-2.4) 08/14/25 06:10 Electrolytes, C-Reactive P, ESR: Reviewed DM Control DM Control: Glucose 126 mg/dL (74-106) H 08/14/25 06:10 Finger Stick Blood Glucose 232 1147 Finger Stick Blood Glucose 232 1147 Finger Stick Blood Glucose 143 0819 Finger Stick Blood Glucose 143 0819 DM Control: Reviewed Insulin Dosing, Diabetic Medication: Has order for SS insulin Cardiac Review Cardiac Review: Blood Pressure 123/58 1149 Blood Pressure 136/56 0801 Blood Pressure 156/56 0313 BP, HR, EF%: Reviewed (HR WNL) List meds needing interventions: Has order for furosemide 20mg daily and metoprolol XL 100mg BID QTc Review QTc: Reviewed (450 from 08/08/25) IV to PO Switch IV Medications: Reviewed Home Meds Home Med List reviewed: Intervened Relevent Home Meds Not ordered & why?: glipizide (on hold per H+P) and metformin (on hold per H+P) Asked nurse to see if patient takes pantoprazole at home (recently filled but not on home med list). Per nurse patient states they don't think so but are unsure. Informed provider. Asked nurse to see if patient is still taking furosemide. Is on home med list and has an order but has not been filled since April for a 30 day supply. Per nurse patient states they don't think so but are unsure. Informed provider. Current Meds Current Medication Order Review: Reviewed Comments Comments/Follow Ups: discharge pending SNF placement?
[2025-08-14 11:49] VITALS: BP 123/58; PULSE 77; RESP 17; TEMP 36; O2SAT 97
[2025-08-14] MEDS: Insulin Aspart 300 UNITS/3 ML PEN SC ×2 (13:10→17:30)
--- NOTE | 2025-08-14 13:16 | W.PM.PROGNOT ---
Date of Service Date of service: 08/14/25 Time of Service: 17:34 Assessment and Plan Assessment and plan (1) Failure to thrive in adult: Start date: 08/14/25 Status: Acute Assessment and plan: history of repeated admissions for failure to thrive and seems linked to inability to walk safely at home, perform independent ADL activity and self-care History of frequent falls the patient not having a fear of falling but has no injuries from her falls. SNF referrals palced by CM (2) Abnormal urinalysis: Start date: 08/14/25 Status: Acute Assessment and plan: Urinalysis trace leuk est - no antibiotic at this time Urine culture pending - will treat if positive (3) Ambulatory dysfunction: Start date: 08/14/25 Status: Chronic Assessment and plan: Was able to transfer from bed to chair at last discharge but this ability was impaired on arrival Ongoing PT (4) Intertriginous candidiasis: Start date: 08/13/25 Status: Acute Assessment and plan: Continue nystatin powder and skin care. (5) Non-insulin dependent type 2 diabetes mellitus: Start date: 08/14/25 Status: Chronic Assessment and plan: Ongoing glucometer measurements Ac and HS with SSI coverage prior to meals while hospitalized. Resume outpatient medical therapy at discharge to SNF - will hold at this time (6) (HFpEF) heart failure with preserved ejection fraction: Start date: 08/14/25 Status: Acute Assessment and plan: No exacerbation will continue outpatient medical therapy. LVEF 60-65% on 03/01/25 Will continue home dose lasix and adjust PRN - diuretics and SGLT2 inhibitors are recommended in HFpEF Skin care of chronic changes in lower extremities. (7) HTN (hypertension): Start date: 08/14/25 Assessment and plan: Continue home medical therapy with furosemide Metoprolol succinate mostly for rate control in atrial fibrillation d/t beta-1 selective blocking properties but still can have effect on blood pressure control (8) Atrial fibrillation: Assessment and plan: As above Refused anticoagulation in 2022 Now the patient might not be a candidate for long-term anticoagulation with risk of falling but this could be reconsidered if she will be discharged to SNF (9) Depression: Start date: 08/14/25 Status: Chronic Assessment and plan: No exacerbation, continue home dose citalopram (10) CKD (chronic kidney disease): Start date: 08/14/25 Status: Chronic Assessment and plan: No exacerbation , no NICOLE with Cr around baseline at 1.8 continue to monitor (11) Hypothyroidism (acquired): Start date: 08/14/25 Status: Chronic Assessment and plan: TSH is elevated > 6 with normal T4 Continue outpatient medical therapy- larry tariq failed to take her medicines at home outpatient f/u (12) Obesity (BMI 30.0-34.9): Start date: 08/14/25 Status: Acute Assessment and plan: counselling re: GLP-1 and f/u discussion with PCP consider nutrition consultation (13) Breast cancer: Start date: 08/14/25 Assessment and plan: Hitory of lumpectomy on 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 Continue dressing change Q 24 hours with mepilex to scalp (14) On deep vein thrombosis (DVT) prophylaxis: Start date: 08/14/25 Status: Resolved Assessment and plan: Ongoing LMWH Discussed with Dr. Dent Subjective Subjective Patient reports: no new complaints, feels better, tolerating liquids well, tolerating a regular diet, voiding w/o difficulty (incontinent with briefs ), flatus, no bowel movement and other (tired ); denies diarrhea, nausea, vomiting, shortness of breath or fever Exam Narrative Exam Narrative: Fatigued appearing 79 year old female patient looking older than state age , A& O self. in person, time, an situation , heart regular rhythm, + murmur , lungs good auscultation bilaterally, abdomen large non-distended soft, nontender, moves all 4 extremities Objective Last Vital Signs Temp 36.0 C L 08/14/25 11:49 Pulse 77 08/14/25 11:49 Resp 17 08/14/25 11:49 BP 123/58 L 08/14/25 11:49 Pulse Ox 97 08/14/25 11:49 Laboratory Results - last 24 hr 08/13/25 08/14/25 08/14/25 19:15 05:00 06:10 WBC 10.07 8.35 RBC 3.75 L 3.23 L Hgb 11.7 10.2 L Hct 36.3 31.5 L MCV 97 H 98 H MCH 31.2 31.6 MCHC 32.2 32.4 RDW 15.7 H 15.9 H Plt Count 207 178 MPV 9.9 10.1 Immature Gran % 0.6 Neutrophils % 71.4 Lymphocytes % 15.0 Monocytes % 5.2 Eosinophils % 7.4 Basophils % 0.4 Nucleated RBC % 0.0 Absolute Neutrophils 7.19 H Absolute Lymphocytes 1.51 Absolute Monocytes 0.52 Absolute Eosinophils 0.75 H Absolute Basophils 0.04 Sodium 143 142 Potassium 4.5 4.1 Chloride 105 107 Carbon Dioxide 27.4 26.8 Anion Gap 10.6 8.2 BUN 44 H 41 H Creatinine 1.8 H 1.8 H Est GFR (CKD-EPI 2020) 27.96 27.96 Glucose 115 H 126 H Calcium 9.9 9.5 Magnesium 1.8 Total Bilirubin 0.2 0.3 AST 13 L 12 L ALT 19 18 Alkaline Phosphatase 129 H 112 Total Protein 8.2 7.1 Albumin 3.3 L 2.9 L TSH 6.05 H Free T4 1.17 Urine Color Yellow Urine Clarity Clear Urine pH 5.5 Ur Specific [place] 1.025 Urine Protein Negative Urine Ketones Negative Urine Blood Negative Urine Nitrite Negative Urine Bilirubin Negative Urine Urobilinogen 0.2 Ur Leukocyte Esterase Trace H Urine RBC Negative Urine WBC 0-2 Ur Epithelial Cells Few Urine Crystals Negative Urine Bacteria Rare Urine Casts Negative Urine Mucus Negative Ur Culture Indicated? No Urine Glucose Negative Time Spent with Patient Time Spent with Patient: >50 minutes Time was spent: preparing to see the patient(eg.review tests), obtaining and/or reviewing separately otained hiistory, ordering medications,tests, procedures, referring, communicating with other health adult care manager, indepentently interpreting results, counseling the patient, care coordination and other
[2025-08-14 15:11] VITALS: BP 135/54; PULSE 79; RESP 24; TEMP 35.8; O2SAT 96
[2025-08-14] MEDS: Pantoprazole 40 MG TABCR PO (17:29)
[2025-08-14 19:33] VITALS: BP 111/61; PULSE 81; RESP 18; TEMP 36.6; O2SAT 97
[2025-08-14] MEDS: Mirtazapine 15 MG TAB 30 MG PO (20:09)
[2025-08-14] MEDS: Simvastatin 20 MG TAB PO (20:09)
[2025-08-14 22:56] VITALS: BP 148/76; PULSE 84; RESP 18; TEMP 36.4; O2SAT 99
[2025-08-15 03:19] VITALS: BP 119/70; PULSE 76; RESP 18; TEMP 36.4; O2SAT 97
[2025-08-15] MEDS: Pantoprazole 40 MG TABCR PO (05:55)
[2025-08-15] MEDS: Levothyroxine 88 MCG TAB PO (05:55)
[2025-08-15 08:01] VITALS: BP 127/53; PULSE 75; RESP 24; TEMP 36.8; O2SAT 98
[2025-08-15] MEDS: Ferrous Gluconate 324 MG TAB PO (08:21)
[2025-08-15] MEDS: Metoprolol CR 100 MG TABCR PO ×2 (08:22→20:24)
[2025-08-15] MEDS: Citalopram 20 MG TAB PO (08:22)
[2025-08-15] MEDS: Insulin Aspart 300 UNITS/3 ML PEN SC ×3 (08:25→17:56)
--- NOTE | 2025-08-15 08:25 | IN_ITS ---
Date of service: 08/15/25 PT Notes Visit Reasons: Failure to Thrive, Ambulatory Dysfunction, NIDDM Inpatient Physical Therapy Evaluation Date: 08/15/2025 Referring Doctor: Dr Alejandre PT Orders: PT CONSULT: PT Evaluation Precautions: fall risk, standard Patient Profile/Admitting Diagnosis: Pt is an 79 yo female who presented to the ED 4 hours after discharge from hospital on 08/13/2025. Pt presented after was unable to get her off the couch . Pt admitted with failure to thrive . PT consult placed. PMHX: CHF (congestive heart failure) (Chronic) related to Hg 5.7. Resolved. Nl echo Non-insulin dependent type 2 diabetes mellitus (Acute) Failure to thrive in adult (Acute) Pneumonitis (Acute) Debility (Acute) Hypotension (Acute) NICOLE (acute kidney injury) (Acute) Hypothyroidism (acquired) (Chronic) Hypomagnesemia (Acute) Ambulatory dysfunction (Acute) Acute UTI (Acute) General weakness (Acute) Hx of falling (Acute) Medical History Acute pain of right hip Acute UTI Osteopenia Glaucoma Trochanteric bursitis Atrial fibrillation with RVR Related hg 5.7, isolatedCHF (congestive heart failure) related to Hg 5.7. Resolved. Nl echoAnemia Atrial fibrillation Leucocytosis Acute CHF DVT prophylaxis Abnormal finding on breast imaging Goiter Pleural effusion Acute dyspnea Squamous cell cancer of scalp and skin of neck Breast cancer Hypercholesterolemia HTN (hypertension) Diabetes mellitus Surgical History History of thoracentesis (~03/2025) S/P skin and subcutaneous tissue surgery S/P breast lumpectomy Social History/Home Situation: lives in home with her with ramp to enter. Pt utilizes [facility] for all appointments. She sleeps on the couch and has a commode next to her. Independent with short distance indoor ambulation using her 4WW until 2 weeks prior to admission. does the cooking and helps with bathing and grooming until recently. She has a dog. Equipment Owned/DME:4WW, FWW, commode,ramp to enter Subjective: Pt initially stated she wanted to stay in bed, however with encouragement pt agreed to sit in her chair for breakfast. Objective: [] General Observation: elderly female hooklying position Mental Status:Alert Ox3 , cooperative but fearful, able to follow instructions with calm approach, agreeable to participate in assessment Pain: denied Vital Signs: monitored by Nursing ROM: Right Upper Extremity: WFL Left Upper Extremity: WFL Right Lower Extremity: WFL except DF to neutral with knee extension Left Lower Extremity: WFL except DF to Neutral with knee extension Strength: Right Upper Extremity: grossly 4/5 Left Upper Extremity: grossly 4/5 Right Lower Extremity: grossly 4-/5 Left Lower Extremity:grossly 4-/5 Sensation: intact Bed Mobility/Transfers: [] supine to sit : mod A of 1 sit to supine: Mod A of 1 sit to stand at FWW: min A of 1 with increased time to allow pt multiple self attempts to stand stand to sit: CGA of 1 surface to surface: with FWW Min A of 1 with cues for safe approach to surface Gait: ambulat Balance: [] Static Sitting: good Dynamic Sitting:fair intermittent posterior LOB Static Standing: Fair with FWW Dynamic Standing:Poor + with FWW Special Tests: Mobility Limitations Standardized Measure [facility] 6 clicks Basic Mobility Inpatient Short Form: Raw Score: 14 CMS Score:61.29% deficit Informed Consent/Education: Patient instructed in purpose of PT consult and pl an of care. Treatment: 50581 TherAct sit to stand x 4 trials withmin A of 1 with cues for encouragement and allowing for increased time to complete tasks with least assistance. Ambulated with FWW min A of 1 5 feet then 12 feet Pt with forward flexed postured requiring cues for upright posture sit to supine with min A and cues to reposition self / straighten trunk.Pt also able to bridge to allow for linen to be adjusted. Assessment: Patient is a 79 year old female referred to physical therapy services with the diagnosis of failure to thrive. Patient presents with clin ical signs and symptoms consistent with admitting diagnosis, as demonstrated by the following impairment level findings: 1. impaired strength BLE/BUE musculature 2. impaired balance reactions in sit and stand 3. impaired functional activity tolerance 4. impaired B dorsiflexion L>R 5. fearfulness and anxiety with movements Impairments are contributing to the following functional limitations: 1. AMPAC score of 14 indicating high risk readmission if discharge to community 2. decline in functional transfers 3. decline in bed mobility 4. difficulty to ambulate with FWW 5. dependent for ADL care 6. High risk for falls Patient is assessed as a Moderate 48610 complexity based on the following: History: 79 yo female with complex PMHx and comorbidities Examination: as stated above Presentation:stable Decision Making:moderate Goals: Goals X1 week 1. Supine-Sit supervision 2. Sit-Supine supervision 3. Sit-Stand CGA 4. Stand-Sit CGA 5. Bed-Chair CGA with FWW 6. Chair-Bed CGA with FWW 7. amb with FWW CGA >25 feet Plan of Care/Treatment Plan: 1-2x/day, 7 days/week x 1 week. Plan of care has been reviewed with the COMMUNITY SERVICE OFFICER providing the service under Physical Therapy direction. Initiate Physical Therapy intervention for strengthening, bed mobility, transfers, gait, stairs, balance training, use of assistive device. DISCHARGE RECOMMENDATIONS: Pt would benefit from short term SNF . TREATMENT CODE/TIME: 92513 ,27131/ 9084-5350, [id number]
[2025-08-15] MEDS: Enoxaparin 30 MG/0.3 ML SYR SC (08:27)
--- NOTE | 2025-08-15 08:53 | PDOC.CMPRO ---
Date of service: 08/15/25 Time of Service: 17:21 Care Management Progress Note Progress Note Text Progress Note Text: Arlene is readmitted due to anxiety which significantly impacts her ability to ambulate. Per pt, she has an over whelming fear of falling, which stems from a hard fall she had approximately 3 years ago. She is agreeable to discharge to SNF for STR, and her prefers she discharge to a rehab for a short stay prior to returning home. She does not have a qualifying stay and however because she is a patient of the [facility] she is able to go to STR designated by medicare. Referrals are pending at several [facility] contracted SNF's, however no offers have been received at this time. In the meantime, she is working with PT and was started on Gabapentin today to help manage her anxiety anxiety. CM will continue to follow. Pending [facility] and Rehab [facility] No Bed Offer [facility]declined [facility]-not open to admissions [facility]-declined Social Determinants of Health Screening Will the Patient Participate in the Screening?: Declined to provide
[2025-08-15] MEDS: Nystatin POWDER 60 GM JAR TP ×2 (10:09→20:30)
--- NOTE | 2025-08-15 11:31 | W.PM.PROGNOT ---
Date of Service Date of service: 08/15/25 Time of Service: 11:31 Assessment and Plan Assessment and plan (1) Anxiety: Status: Acute Assessment and plan: Affecting her ability to ambulate secondary to fear of falling Initiate gabapentin 100 mg 3 times daily, can titrate if effective If no response consider clonazepam 0.5 mg twice daily with recommendation for weaning in approximately 1 month (2) Failure to thrive in adult: Status: Acute Assessment and plan: history of repeated admissions for failure to thrive and seems linked to inability to walk safely at home, perform independent ADL activity and self-care History of frequent falls the patient not having a fear of falling but has no injuries from her falls. SNF referrals palced by CM (3) Abnormal urinalysis: Status: Acute Assessment and plan: Urinalysis trace leuk est - no antibiotic at this time Urine culture pending - will treat if positive (4) Ambulatory dysfunction: Status: Chronic Assessment and plan: Was able to transfer from bed to chair at last discharge but this ability was impaired on arrival Ongoing PT (5) Intertriginous candidiasis: Start date: 08/13/25 Status: Acute Assessment and plan: Continue nystatin powder and skin care. (6) Non-insulin dependent type 2 diabetes mellitus: Status: Chronic Assessment and plan: Ongoing glucometer measurements Ac and HS with SSI coverage prior to meals while hospitalized. Resume outpatient medical therapy at discharge to SNF - will hold at this time (7) (HFpEF) heart failure with preserved ejection fraction: Status: Acute Assessment and plan: No exacerbation will continue outpatient medical therapy. LVEF 60-65% on 03/01/25 Will continue home dose lasix and adjust PRN - diuretics and SGLT2 inhibitors are recommended in HFpEF Skin care of chronic changes in lower extremities. (8) HTN (hypertension): Start date: 08/14/25 Assessment and plan: Continue home medical therapy with furosemide Metoprolol succinate mostly for rate control in atrial fibrillation d/t beta-1 selective blocking properties but still can have effect on blood pressure control (9) Atrial fibrillation: Status: Chronic Assessment and plan: As above Refused anticoagulation in 2022 Now the patient might not be a candidate for long-term anticoagulation with risk of falling but this could be reconsidered if she will be discharged to SNF (10) Depression: Status: Chronic Assessment and plan: No exacerbation, continue home dose citalopram (11) CKD (chronic kidney disease): Status: Chronic Assessment and plan: No exacerbation , no NICOLE with Cr around baseline at 1.8 continue to monitor (12) Hypothyroidism (acquired): Status: Chronic Assessment and plan: TSH is elevated > 6 with normal T4 Continue outpatient medical therapy- larry tariq failed to take her medicines at home outpatient f/u (13) Obesity (BMI 30.0-34.9): Status: Acute Assessment and plan: counselling re: GLP-1 and f/u discussion with PCP consider nutrition consultation (14) Breast cancer: Assessment and plan: 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 Continue dressing change Q 24 hours with mepilex to scalp (15) On deep vein thrombosis (DVT) prophylaxis: Status: Acute Assessment and plan: Ongoing LMWH Discussed with Dr. Reed Subjective Subjective Interval history since last seen: continues to have anxiety preventing her from working with PT and ambulating with fear of falling. hemodynamically stable, no fever, chest pain, shortness of breath, abd pain Exam Const General: cooperative, comfortable, no acute distress and frail appearing Nutritional Appearance: obese Orientation: alert, awake and oriented x3 HENMT Head: other (old well healed surgical scar across top of head) Mouth: moist mucous membranes abnormal (slightly dry) Neck Neck: no JVD Resp Effort & Inspection: normal respiratory effort Auscultation: diminished lung sounds bilaterally and no wheezes Cardio Rate: regular rate Rhythm: regular rhythm GI Inspection: normal to inspection Palpation: soft Skin General skin exam: no rashes or lesions noted Neuro General: patient alert, patient awake and patient oriented x3 Extrem General: normal to inspection, full ROM and edema (lower) Laterality: bilateral Psych Mental Status: mental status grossly normal Speech and Movement: speech and movement normal Mood: anxious mood Affect: anxious affect Objective Last Vital Signs Temp 36.8 C 08/15/25 08:01 Pulse 75 08/15/25 08:01 Resp 24 08/15/25 08:01 BP 127/53 L 08/15/25 08:01 Pulse Ox 98 08/15/25 08:01 Time Spent with Patient Time Spent with Patient: 35-49 minutes Time was spent: preparing to see the patient(eg.review tests), obtaining and/or reviewing separately otained hiistory, ordering medications,tests, procedures, indepentently interpreting results, counseling the patient and care coordination
[2025-08-15 11:35] VITALS: BP 122/66; PULSE 78; RESP 18; TEMP 36.3; O2SAT 99
[2025-08-15] MEDS: Normal Saline Flush 10 ML SYR IVP (11:37)
[2025-08-15] MEDS: Gabapentin 100 MG CAP PO ×2 (13:08→20:24)
[2025-08-15 19:46] VITALS: BP 106/74; PULSE 81; RESP 14; TEMP 36.1; O2SAT 98
[2025-08-15] MEDS: Mirtazapine 15 MG TAB 30 MG PO (20:24)
[2025-08-15] MEDS: Simvastatin 20 MG TAB PO (20:24)
[2025-08-15 23:20] VITALS: BP 159/80; PULSE 78; RESP 16; TEMP 36.1; O2SAT 100
[2025-08-16 03:24] VITALS: BP 136/71; PULSE 78; RESP 16; TEMP 36; O2SAT 98
[2025-08-16] MEDS: Pantoprazole 40 MG TABCR PO (05:49)
[2025-08-16] MEDS: Levothyroxine 88 MCG TAB PO (05:49)
[2025-08-16 06:16] VITALS: BP 133/54; PULSE 72; RESP 16; TEMP 36; O2SAT 98
[2025-08-16] MEDS: Citalopram 20 MG TAB PO (08:25)
[2025-08-16] MEDS: Ferrous Gluconate 324 MG TAB PO (08:25)
[2025-08-16] MEDS: Gabapentin 100 MG CAP PO ×3 (08:26→19:51)
[2025-08-16] MEDS: Metoprolol CR 100 MG TABCR PO ×2 (08:29→19:51)
[2025-08-16] MEDS: Enoxaparin 30 MG/0.3 ML SYR SC (08:30)
[2025-08-16] MEDS: Insulin Aspart 300 UNITS/3 ML PEN SC ×3 (08:31→18:12)
[2025-08-16 08:40] VITALS: BP 142/64
[2025-08-16] MEDS: Nystatin POWDER 60 GM JAR TP ×2 (09:50→19:51)
--- NOTE | 2025-08-16 09:53 | PTTR_ITS ---
Date of service: 08/16/25 PT Notes Visit Reasons: Failure to Thrive, Ambulatory Dysfunction, NIDDM Inpatient Physical Therapy Treatment Note [facility] Date: 08/16/2025 PRECAUTIONS:standard, fall risk , anxious allow increased time and provide reassurance to allow her to perform taks with least amount of assistance. SUBJECTIVE: 1st session:Pt stated they didn’t sleep well this past night. Pt stated they were feeling anxious before she ambulated to the commode, and after she ambulated from commode to the recliner. 2nd session : Pt stated that was much better than this morning. She stated she felt confident walking. OBJECTIVE: General observation: 1st session (Pt seen prior to medications being given---- Pt starting on Neurontin TID) Patient Laying in bed when PT arrived. Once pt was at EOB, they needed assistance to move closer to the EOB to allow their feet to touch the ground. After using the commode, pt continued to lean posteriorly. DPTS Reginald asked the pt to shift their weight forward, and the pt flexed their trunk anteriorly, but couldn’t shift their weight anteriorly. As the patient ambulated from commode to recliner, their R great toe stayed extended and she had difficulties flexing the toe to touch the ground. Pt appear disappointed with herself after ambulating to the recliner from the commode from facial expressions, and pt stating she felt she didn’t perform well today. 2nd session Pt seated in chair with present. Pt reporting she is itchy. Pt skin observed to have areas of rash Nurse Alfred and Accounting Machine Operator Melisa present. PAIN: No pain reported VITALS: Monitored by Nursing Therapeutic Activities ([id number][]): Direct one-on-one instruction in dynamic activities to improve functional performance. 1st session: BED MOBILITY/TRANSFERS Supine-sit: Mod A of 1. Pt lacked upper body strength to slide herself closer to the EOB. Sit-stand: EOB to stand: Min A of 1. PT provided tactile and verbal cues for hand/feet placement, and weight shift cueing. Commode to stand: Mod A of 2: PT provided tactile and verbal cues for hand/feet placement, and weight shift cueing. Pt Posterior retropulsive, and struggled to shift weight anteriorly after verbal and tactile cueing from DPTS Reginald and oversight by PT ALINA Stand-sit: Stand to commode: Mod A of 1 Stand to Recliner: Mod A of 2. Pt had difficulties lowering themselves to the recliner, still posterior retropulsive. Commode to chair: Ambulation: 7 feet with FWW Mod A of 2. Pt posterior retropulsive, pt R great toe hyper extended while ambulating. This resulted in a decrease in activity tolerance for safety concerns. PT Provided skilled cues and instruction on performance and technique throughout ambulation. Cues involved pt weight shifting anterior to prevent pt from leaning back excessively, proper alignment with recliner before sitting down, and proper hand placement. When reapproached at 1110 pt required Min A of 1 and CGA of 1 for transfers and ambulation 10 feet x 2 with FWW. present and observed. Pt with improved foot clearance at this time with no episode of right great toe extension. 2nd session Pt amb with FWW 44 feet with CGA and close w/c follow . Pt able to perform sit to stand from chair with min A of 1 and 3 attempts. Pt continues with impaired anterior weight shift to get nose over toes to reduce retropulsion. sit to supine with min A for LEs. Once on the bed pt able to utilize bridging to repositionwith cues. present for and observed session. He provided cues for safe approach to bed and was able to verbalize to pt how to reposition herself. ASSESSMENT: 1st session Pt continues to need Min A of 1 to go from laying supine to EOB as pt lack the upper body strength to complete task. Pt has shown moments of needing contact guard assist of 1. However, pt continues to have moments of anxiety and fear of movement, leading to pt needing Mod A of 2. This high anxiety has resulted the patient to posterior retropulse and maintain a high fall risk. Because of these moments of high anxiety, fear with movement, and posterior retropulstion she continues to need skilled physical therapy. 2nd session: Pt with improved motor control BLE for ambulation with FWW into hallway with CGA Pt continues to have impaired eccentric control for stand to sit placing her at risk for falls . PLAN: 1-2x/day, 7 days/week x 1 week. Plan of care has been reviewed with the COMPUTER BUILDER providing the service under Physical Therapy direction. Initiate Physical Therapy intervention for strengthening, bed mobility, transfers, gait, stairs, balance training, use of assistive device. TREATMENT CODE/TIME: 1st session:[id number], [id number] 2nd session: [id number] DISCHARGE RECOMMENDATION: SNF
--- NOTE | 2025-08-16 10:21 | CMPROGNOTE_ITS ---
Date of service: 08/16/25 Time of Service: 10:21 Care Management Progress Note Progress Note Text Progress Note Text: Arlene was sitting in a recliner eating lunch with her , Quirino, when CM met with them. She is more talkative and seems more confident today about her plan which is to walk when she returns home. Her anxiety is being medically managed with Gapapentin and may be positively impacting her ability to work with physical therapy. Arlene has been admitted to the hospital several times recently due to her ambulatory disfunction and PT recommends SNF for STR. Arlene and her are both agreeable to a STR stay and although Arlene does not have a qualifying stay, as an ACO patient she is eligible for STR placement at a medicare designated ACO contracted facility. Referrals have been sent to several ACO contracted facilities, however no bed offers have been received. Arlene may need to transition to SWB status on Tuesday if no bed offers are received. Pt's community CM is Dorinda Murcia from the [facility]; CM plans to contact her Tuesday to follow up on progress regarding increased community supports. CM will continue to follow. Referrals were sent 08/09/25, updated clinicals were sent 08/14/25 Pending [facility]- CM left Msg 08/16/25 [facility]-CM left Msg 08/16/25 [facility]-CM left Msg 08/16/25 [facility]-CM left Msg 08/16/25 [facility]- CM left Msg 08/16/25 [facility]-CM left Msg 08/16/25 [facility]-CM left Msg 08/16/25 No Bed Offer [facility]-Full, will re-review next week. 08/16/25 [facility]-declined [facility]-not open to [facility]-declined Discharge Potential Discharge Needs: PCP F/U Appt Anticipated Barriers to Discharge: None Identified Patient/Family Education Needs: Review discharge instructions, discuss [facility] Transportation: RCT RCT Transportation: Wheel chair van Plan: Arlene requires STR for strengthening prior to returning home. She does not have a qualifying stay, although is ACO attributed therefor referral options are limited to the above facilities. Transportation will be determined by disposition. COA to continue to support patient with LTM (application in process per [place]) and getting increased caregiver support in the home. CM will follow. Social Determinants of Health Screening Will the Patient Participate in the Screening?: Declined to provide
--- NOTE | 2025-08-16 12:51 | NUR.NOTE ---
Nursing Note: Documentation by NANI Galaviz student reviewed.
--- NOTE | 2025-08-16 15:07 | W.PM.PROGNOT ---
Date of Service Date of service: 08/16/25 Time of Service: 15:07 Assessment and Plan Assessment and plan (1) Anxiety: Status: Acute Assessment and plan: Affecting her ability to ambulate secondary to fear of falling Initiated gabapentin 100 mg 3 times daily, yesterday which seems to be helpful, can titrate if effective but will defer today d/t some minimal sedation, this is anticipated to improve with tolerance. If no response consider clonazepam 0.5 mg twice daily with recommendation for weaning in approximately 1 month (2) Failure to thrive in adult: Status: Acute Assessment and plan: history of repeated admissions for failure to thrive and seems linked to inability to walk safely at home, perform independent ADL activity and self-care History of frequent falls the patient not having a fear of falling but has no injuries from her falls. rehab referrals placed by care management (3) Abnormal urinalysis: Status: Acute Assessment and plan: Urinalysis trace leuk est - no antibiotic at this time Urine culture pending - will treat if positive (4) Ambulatory dysfunction: Status: Chronic Assessment and plan: Was able to transfer from bed to chair at last discharge but this ability was impaired on arrival Ongoing PT (5) Intertriginous candidiasis: Start date: 08/13/25 Status: Acute Assessment and plan: Continue nystatin powder and skin care. (6) Non-insulin dependent type 2 diabetes mellitus: Status: Chronic Assessment and plan: Ongoing glucometer measurements Ac and HS with SSI coverage prior to meals while hospitalized. Resume outpatient medical therapy at discharge to SNF - will hold at this time (7) (HFpEF) heart failure with preserved ejection fraction: Status: Acute Assessment and plan: No exacerbation will continue outpatient medical therapy. LVEF 60-65% on 03/01/25 Will continue home dose lasix and adjust PRN - diuretics and SGLT2 inhibitors are recommended in HFpEF Skin care of chronic changes in lower extremities. (8) HTN (hypertension): Start date: 08/14/25 Assessment and plan: Continue home medical therapy with furosemide Metoprolol succinate mostly for rate control in atrial fibrillation d/t beta-1 selective blocking properties but still can have effect on blood pressure control (9) Atrial fibrillation: Status: Chronic Assessment and plan: As above Refused anticoagulation in 2022 Now the patient might not be a candidate for long-term anticoagulation with risk of falling but this could be reconsidered if she will be discharged to SNF (10) Depression: Status: Chronic Assessment and plan: No exacerbation, continue home dose citalopram (11) CKD (chronic kidney disease): Status: Chronic Assessment and plan: No exacerbation , no NICOLE with Cr around baseline at 1.8 continue to monitor (12) Hypothyroidism (acquired): Status: Chronic Assessment and plan: TSH is elevated > 6 with normal T4 Continue outpatient medical therapy- larry tariq failed to take her medicines at home outpatient f/u (13) Obesity (BMI 30.0-34.9): Status: Acute Assessment and plan: counselling re: GLP-1 and f/u discussion with PCP consider nutrition consultation (14) Breast cancer: Assessment and plan: 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 Continue dressing change Q 24 hours with mepilex to scalp (15) On deep vein thrombosis (DVT) prophylaxis: Status: Acute Assessment and plan: Ongoing LMWH Discussed with Dr. Reed Subjective Subjective Patient reports: no new complaints, tolerating liquids well, tolerating a regular diet and afebrile Interval history since last seen: Feels decreased anxiety in increased willingness to work with physical therapy staff did find her a little sedate when compared to yesterday Exam Const General: cooperative, comfortable, no acute distress and frail appearing Nutritional Appearance: obese Orientation: alert, awake and oriented x3 HENMT Head: other (old well healed surgical scar across top of head) Mouth: moist mucous membranes abnormal (slightly dry) Neck Neck: no JVD Resp Effort & Inspection: normal respiratory effort Auscultation: diminished lung sounds bilaterally and no wheezes Cardio Rate: regular rate Rhythm: regular rhythm GI Inspection: normal to inspection Palpation: soft Skin General skin exam: no rashes or lesions noted Neuro General: patient alert, patient awake and patient oriented x3 Extrem General: normal to inspection, full ROM and edema (lower) Laterality: bilateral Psych Mental Status: mental status grossly normal Speech and Movement: speech and movement normal Mood: anxious mood Affect: anxious affect Objective Last Vital Signs Temp 36.0 C L 08/16/25 06:16 Pulse 72 08/16/25 06:16 Resp 16 08/16/25 06:16 BP 142/64 H 08/16/25 08:40 Pulse Ox 98 08/16/25 06:16 Time Spent with Patient Time Spent with Patient: 35-49 minutes Time was spent: preparing to see the patient(eg.review tests), obtaining and/or reviewing separately otained hiistory, ordering medications,tests, procedures, indepentently interpreting results and counseling the patient
[2025-08-16 15:16] VITALS: BP 134/66; PULSE 72; RESP 20; TEMP 35.9; O2SAT 97
[2025-08-16 19:50] VITALS: BP 123/52; PULSE 75; RESP 17; TEMP 35.8; O2SAT 97
[2025-08-16] MEDS: Simvastatin 20 MG TAB PO (19:51)
[2025-08-16] MEDS: Mirtazapine 15 MG TAB 30 MG PO (19:51)
[2025-08-16 20:29] VITALS: BP 134/61; PULSE 75; RESP 16; TEMP 36; O2SAT 92
[2025-08-17] VITALS (7 sets, daily range): BP systolic 120–145; BP diastolic 50–70; PULSE 67–89; RESP 16–18; TEMP 36.3–36.7; O2SAT 94–99
[2025-08-17] MEDS: Levothyroxine 88 MCG TAB PO (05:47)
[2025-08-17] MEDS: Enoxaparin 30 MG/0.3 ML SYR SC (09:12)
[2025-08-17] MEDS: Ferrous Gluconate 324 MG TAB PO (09:13)
[2025-08-17] MEDS: Gabapentin 100 MG CAP PO ×3 (09:13→20:46)
[2025-08-17] MEDS: Pantoprazole 40 MG TABCR PO (09:14)
[2025-08-17] MEDS: Citalopram 20 MG TAB PO (09:14)
[2025-08-17] MEDS: Metoprolol CR 100 MG TABCR PO ×2 (09:14→20:46)
[2025-08-17] MEDS: Insulin Aspart 300 UNITS/3 ML PEN SC ×3 (09:16→16:32)
[2025-08-17] MEDS: Nystatin POWDER 60 GM JAR TP ×2 (09:20→20:48)
--- NOTE | 2025-08-17 09:36 | PT.INTREAT ---
PT Notes Visit Reasons: Failure to Thrive, Ambulatory Dysfunction, NIDDM Inpatient Physical Therapy Treatment Note [facility] Date: 08/17/2025 PRECAUTIONS:standard, fall risk , anxious allow increased time and provide reassurance to allow her to perform tasks with least amount of assistance. Pt.when anxious may just sit without reaching back or without much warning. SUBJECTIVE: []Looking forward to participation in PT, after first sit to stand she does sit back down stating that she cannot do it, but after she calms down she did very well with longer distance walking. OBJECTIVE: General observation:sitting in chair PAIN: No pain reported VITALS: Monitored by Nursing Therapeutic Activities (97108i[1]): Direct one-on-one instruction in dynamic activities to improve functional performance. BED MOBILITY/TRANSFERS Sit-stand: from chair to RW min Assist, needed v/c to stand tall and for hand placement min A stand to sit: from RW to chair varied as patient would just sit without warning, no control, min A if she took her time , x4 Ambulation: with RW CTG and follow behind with w/c due to tendency to sit without warning x48', cueing to keep head up Standing at RW with light hand hold 2x15 sec ASSESSMENT: Pt able to ambulate with CTG however the unpredictable nature of her getting anxious and just sitting down without warning has us following with w/c. She does well with sit to stand and requires progressively less assistance. She has been given medication that seems to help with her anxiety. Pt continues to have moments of anxiety and fear of movement, leading to pt unpredictable behavior ubaldo with sitting. This high anxiety has resulted in unpredicible behaviors thus maintain a high fall risk. PLAN: 1-2x/day, 7 days/week x 1 week. Plan of care has been reviewed with the DISTRICT EXTENSION SERVICE AGENT providing the service under Physical Therapy direction. Initiate Physical Therapy intervention for strengthening, bed mobility, transfers, gait, stairs, balance training, use of assistive device. TREATMENT CODE/TIME: 21682 x1 12:30-12:50 DISCHARGE RECOMMENDATION: SNF
--- NOTE | 2025-08-17 14:08 | PGE_ITS ---
Date of Service Date of service: 08/17/25 Time of Service: 14:08 Assessment and Plan Assessment and plan (1) Anxiety: Status: Acute Assessment and plan: Anxiety affecting her ability to ambulate secondary to crippling fear of falling Initiated gabapentin 100 mg 3 times daily, which seems to be very helpful, can titrate if needed. If no adequate response consider clonazepam 0.5 mg twice daily with recommendation for weaning in approximately 1 month (2) Failure to thrive in adult: Status: Acute Assessment and plan: history of repeated admissions for failure to thrive and seems linked to inability to walk safely at home, perform independent ADL activity and self-care History of frequent falls the patient not having a fear of falling but has no injuries from her falls. rehab referrals placed by care management (3) Abnormal urinalysis: Status: Acute Assessment and plan: Urinalysis trace leuk est - no antibiotic at this time Urine culture insignificant mixed growth (4) Ambulatory dysfunction: Status: Chronic Assessment and plan: has been able to be safely re-ambulated Ongoing PT (5) Intertriginous candidiasis: Start date: 08/13/25 Status: Acute Assessment and plan: Continue nystatin powder and skin care. (6) Non-insulin dependent type 2 diabetes mellitus: Status: Chronic Assessment and plan: Ongoing glucometer measurements Ac and HS with SSI coverage prior to meals while hospitalized. Resume outpatient medical therapy at discharge to SNF - will hold at this time (7) (HFpEF) heart failure with preserved ejection fraction: Status: Acute Assessment and plan: No exacerbation will continue outpatient medical therapy. LVEF 60-65% on 03/01/25 Will continue home dose lasix and adjust PRN - diuretics and SGLT2 inhibitors are recommended in HFpEF Skin care of chronic changes in lower extremities. (8) HTN (hypertension): Start date: 08/14/25 Assessment and plan: Continue home medical therapy with furosemide Metoprolol succinate mostly for rate control in atrial fibrillation d/t beta-1 selective blocking properties but still can have effect on blood pressure control (9) Atrial fibrillation: Status: Chronic Assessment and plan: As above Refused anticoagulation in 2022 Now the patient might not be a candidate for long-term anticoagulation with risk of falling but this could be reconsidered if she will be discharged to SNF (10) Depression: Status: Chronic Assessment and plan: No exacerbation, continue home dose citalopram (11) CKD (chronic kidney disease): Status: Chronic Assessment and plan: No exacerbation , no NICOLE with Cr around baseline at 1.8 (12) Hypothyroidism (acquired): Status: Chronic Assessment and plan: TSH is elevated > 6 with normal T4 Continue outpatient medical therapy- might have failed to take her medicines at home outpatient f/u (13) Obesity (BMI 30.0-34.9): Status: Acute Assessment and plan: counselling re: GLP-1 and f/u discussion with PCP consider nutrition consultation (14) Breast cancer: Assessment and plan: 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 Continue dressing change Q 24 hours with mepilex to scalp (15) On deep vein thrombosis (DVT) prophylaxis: Status: Acute Assessment and plan: Ongoing LMWH Discussed with Dr. Reed Subjective Subjective Patient reports: no new complaints, feels better, tolerating liquids well, tolerating a regular diet and afebrile; denies shortness of breath Interval history since last seen: getting up and ambulating short distances, to chair Exam Const General: cooperative, comfortable, no acute distress and frail appearing Nutritional Appearance: obese Orientation: alert, awake and oriented x3 HENMT Head: other (old well healed surgical scar across top of head) Mouth: moist mucous membranes abnormal (slightly dry) Neck Neck: no JVD Resp Effort & Inspection: normal respiratory effort Auscultation: diminished lung sounds bilaterally and no wheezes Cardio Rate: regular rate Rhythm: regular rhythm GI Inspection: normal to inspection Palpation: soft Neuro General: patient alert, patient awake and patient oriented x3 Psych Mental Status: mental status grossly normal Speech and Movement: speech and movement normal Mood: anxious mood Affect: anxious affect Objective Last Vital Signs Temp 36.6 C 08/17/25 11:18 Pulse 73 08/17/25 11:18 Resp 17 08/17/25 11:18 BP 135/69 08/17/25 11:18 Pulse Ox 97 08/17/25 11:18 Time Spent with Patient Time Spent with Patient: 35-49 minutes Time was spent: preparing to see the patient(eg.review tests), obtaining and/or reviewing separately otained hiistory, ordering medications,tests, procedures, indepentently interpreting results and counseling the patient
[2025-08-17] MEDS: Normal Saline Flush 10 ML SYR IVP (16:33)
[2025-08-17] MEDS: Simvastatin 20 MG TAB PO (20:46)
[2025-08-17] MEDS: Mirtazapine 15 MG TAB 30 MG PO (20:46)
[2025-08-18 02:51] VITALS: BP 123/60; PULSE 71; RESP 17; TEMP 36.4; O2SAT 98
[2025-08-18] MEDS: Levothyroxine 88 MCG TAB PO (05:33)
[2025-08-18 07:52] VITALS: BP 146/71; PULSE 72; RESP 18; TEMP 36.3; O2SAT 99
[2025-08-18] MEDS: Enoxaparin 30 MG/0.3 ML SYR SC (07:53)
[2025-08-18] MEDS: Insulin Aspart 300 UNITS/3 ML PEN SC ×4 (07:53→22:40)
[2025-08-18] MEDS: Nystatin POWDER 60 GM JAR TP ×2 (07:54→20:16)
[2025-08-18] MEDS: Citalopram 20 MG TAB PO (07:54)
[2025-08-18] MEDS: Metoprolol CR 100 MG TABCR PO ×2 (07:54→20:15)
[2025-08-18] MEDS: Gabapentin 100 MG CAP PO ×2 (07:54→13:41)
[2025-08-18] MEDS: Pantoprazole 40 MG TABCR PO (07:54)
[2025-08-18] MEDS: Ferrous Gluconate 324 MG TAB PO (07:54)
[2025-08-18 11:11] VITALS: BP 110/44; PULSE 71; RESP 17; TEMP 36; O2SAT 98
--- NOTE | 2025-08-18 13:49 | PTTR_ITS ---
PT Notes Visit Reasons: Failure to Thrive, Ambulatory Dysfunction, NIDDM Inpatient Physical Therapy Treatment Note [facility] Date: 08/18/2025 PRECAUTIONS:standard, fall risk , anxious allow increased time and provide reassurance to allow her to perform tasks with least amount of assistance. Pt.when anxious may just sit without reaching back or without much warning. Requires being calm and waiting until she is ready to perform tasks as anxiety elevates. SUBJECTIVE: []Patient was in new chairbed that had released into bed position and was being secured by nursing staff back in chair position, however Jennifer was extremely anxious and having difficulty assisting for a transfer into another chair. Frequently stating that she cannot stand up. She was given Gabapentin approximately 10min prior to this incident per nursing staff. PAIN: No pain reported OBJECTIVE: VITALS: Monitored by Nursing Therapeutic Activities (52095l[1]): Direct one-on-one instruction in dynamic activities to improve functional performance. BED MOBILITY/TRANSFERS 20 min, patient had severe anxiety was unable to transfer from new chair bed that was released into bed position, held in chair place by nursing staff. With cueing and modassist of 2 she finally was able to stand to RW and pivot transfer to new chair. Stand to sit again does not reach back but does wait until she is in correct position. Due to the excessive time to go sit to stand she refused to perform any walking and was focused on sitting in the new chair. Sit-stand: with active anxiety, unable to perform, once able to work at her pace today was min assist of 2 with retropulsion and stand to sit with min assist but no eccentric control, no reachback with arms. She will not stand if she is not ready, tried steady assist and was unable to get her to participate. ASSESSMENT: Today Jennifer was unable to participate with much success as she demonstrated severe anxiety and was unable to get out of chair with 3 people cueing/assist. After 20 min she was able to go sit to stand with 2 people min assist with mild retropulsion. At this time the plan is still for SNF placement. Pt continues to have moments of anxiety and fear of movement, leading to pt unpredictable behavior ubaldo with sitting down. When she experiences this elevated anxiety she is unable to follow commands or assist with sit to stand however if she has time to process and regroup she has been able to go sit to stand with min assist and ambulate with CTG with w/c to follow as she is somewhat unpredictible to when she is going to sit. This high anxiety has resulted in unpredicible behaviors, and has interffered with progressive rehab as well as being a high fall risk. PLAN: 1-2x/day, 7 days/week x 1 week. Plan of care has been reviewed with the CUSTOMER EXPERIENCE CONSULTANT providing the service under Physical Therapy direction. Initiate Physical Therapy intervention for strengthening, bed mobility, transfers, gait, stairs, balance training, use of assistive device. TREATMENT CODE/TIME: 77392 x1 1:50-2:10 20' DISCHARGE RECOMMENDATION: SNF
[2025-08-18 15:14] VITALS: BP 122/48; PULSE 78; RESP 17; TEMP 36.4; O2SAT 96
--- NOTE | 2025-08-18 17:32 | W.PM.PROGNOT ---
Date of Service Date of service: 08/18/25 Time of Service: 17:32 Assessment and Plan Assessment and plan (1) Anxiety: Status: Acute Assessment and plan: Anxiety affecting her ability to ambulate secondary to crippling fear of falling Initiated gabapentin 100 mg 3 times daily, which seems to be very helpful; increased to 200 mg TID If no adequate response consider clonazepam 0.5 mg twice daily with recommendation for weaning in approximately 1 month (2) Failure to thrive in adult: Status: Acute Assessment and plan: history of repeated admissions for failure to thrive and seems linked to inability to walk safely at home, perform independent ADL activity and self-care History of frequent falls the patient not having a fear of falling but has no injuries from her falls. rehab referrals placed by care management (3) Abnormal urinalysis: Status: Acute Assessment and plan: Urinalysis trace leuk est - no antibiotic at this time Urine culture insignificant mixed growth (4) Ambulatory dysfunction: Status: Chronic Assessment and plan: has been able to be safely re-ambulated although PT recommends SNF as she is unpredictable Ongoing PT (5) Intertriginous candidiasis: Status: Acute Assessment and plan: Continue nystatin powder and skin care. (6) Non-insulin dependent type 2 diabetes mellitus: Status: Chronic Assessment and plan: Ongoing glucometer measurements Ac and HS with SSI coverage prior to meals while hospitalized. Resume outpatient medical therapy at discharge to SNF - will hold at this time (7) (HFpEF) heart failure with preserved ejection fraction: Status: Acute Assessment and plan: No exacerbation will continue outpatient medical therapy. LVEF 60-65% on 03/01/25 Will continue home dose lasix and adjust PRN - diuretics and SGLT2 inhibitors are recommended in HFpEF Skin care of chronic changes in lower extremities. (8) HTN (hypertension): Assessment and plan: Continue home medical therapy with furosemide Metoprolol succinate mostly for rate control in atrial fibrillation d/t beta-1 selective blocking properties but still can have effect on blood pressure control (9) Atrial fibrillation: Status: Chronic Assessment and plan: As above Refused anticoagulation in 2022 Now the patient might not be a candidate for long-term anticoagulation with risk of falling but this could be reconsidered if she will be discharged to SNF (10) Depression: Status: Chronic Assessment and plan: No exacerbation, continue home dose citalopram (11) CKD (chronic kidney disease): Status: Chronic Assessment and plan: No exacerbation , no NICOLE with Cr around baseline at 1.8 (12) Hypothyroidism (acquired): Status: Chronic Assessment and plan: TSH is elevated > 6 with normal T4 Continue outpatient medical therapy- might have failed to take her medicines at home outpatient f/u (13) Obesity (BMI 30.0-34.9): Status: Acute Assessment and plan: counselling re: GLP-1 and f/u discussion with PCP consider nutrition consultation (14) Breast cancer: Assessment and plan: 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 Continue dressing change Q 24 hours with mepilex to scalp (15) On deep vein thrombosis (DVT) prophylaxis: Status: Acute Assessment and plan: Ongoing LMWH Discussed with Dr. Reed Subjective Subjective Patient reports: no new complaints, feels better, tolerating liquids well, tolerating a regular diet, voiding w/o difficulty and afebrile; denies diarrhea, nausea or vomiting Interval history since last seen: Up with PT; states she is feeling better, more steady, less anxious. Exam Const General: cooperative, comfortable, no acute distress and frail appearing Nutritional Appearance: obese Orientation: alert, awake and oriented x3 HENMT Head: other (old well healed surgical scar across top of head) Mouth: moist mucous membranes abnormal (slightly dry) Neck Neck: no JVD Resp Effort & Inspection: normal respiratory effort Auscultation: diminished lung sounds bilaterally and no wheezes Cardio Rate: regular rate Rhythm: regular rhythm GI Inspection: normal to inspection Palpation: soft Neuro General: patient alert, patient awake and patient oriented x3 Psych Mental Status: mental status grossly normal Speech and Movement: speech and movement normal Mood: anxious mood Affect: anxious affect Objective Last Vital Signs Temp 36.4 C L 08/18/25 15:14 Pulse 78 08/18/25 15:14 Resp 17 08/18/25 15:14 BP 122/48 L 08/18/25 15:14 Pulse Ox 96 08/18/25 15:14 Time Spent with Patient Time Spent with Patient: 25-34 minutes Time was spent: preparing to see the patient(eg.review tests), ordering medications,tests, procedures, referring, communicating with other health residential child care counselor, indepentently interpreting results, counseling the patient and care coordination
[2025-08-18 19:56] VITALS: BP 123/51; PULSE 79; RESP 16; TEMP 36.3; O2SAT 97
[2025-08-18] MEDS: Gabapentin 100 MG CAP 200 MG PO (20:15)
[2025-08-18] MEDS: Mirtazapine 15 MG TAB 30 MG PO (20:16)
[2025-08-18] MEDS: Simvastatin 20 MG TAB PO (20:16)
[2025-08-18] MEDS: Normal Saline Flush 10 ML SYR IVP (20:16)
[2025-08-18 23:21] VITALS: BP 128/78; PULSE 78; RESP 18; TEMP 36.2; O2SAT 98
[2025-08-19] MEDS: Levothyroxine 88 MCG TAB PO (05:48)
[2025-08-19 07:59] VITALS: BP 120/54; PULSE 72; RESP 16; TEMP 36.5; O2SAT 98
--- NOTE | 2025-08-19 08:27 | CMPROGNOTE_ITS ---
Date of service: 08/19/25 Time of Service: 13:48 Care Management Progress Note Progress Note Text Progress Note Text: Arlene was sitting up in a recliner and awake when CM met with her. Per report, her anxiety continues to be medically managed with gabapentin with good result. CM discussed Arlene’s discharge goals and provided an update on the status of referrals. CM has followed up with all O-attributed facilities and resent several referrals as needed. CM also discussed extending referrals to a facility with long-term care availability and explained the differences between long-term placement and short-term rehabilitation. Arlene was not agreeable to pursuing long-term placement at this time. She expressed her preference to continue with short-term rehabilitation prior to returning home. Arlene stated that her goal is to continue practicing the exercises she has learned during her stay and to apply them independently once home. Referrals have been sent to several O contracted facilities, however no bed offers have been received. Arlene may need to transition to SWB status, if no bed offers are received; CM should follow up daily, on these referrals. New referrals sent [facility]-CM sent referral 08/19/25 Pending [facility]- CM left message 08/19/25 [facility]-Still reviewing 08/19/25 [facility]-resent referral via email 08/19/25 [facility]-resent referral via email 08/19/[address] [facility]-not open to admissions 08/19/25 [facility]- Decline 08/19/25 [facility]-Full, will re-review next week. 08/16/25 [facility]- Full, CM will follow 08/19/25 [facility]-Full, CM will follow 08/19/25 Discharge Potential Discharge Needs: PCP F/U Appt Anticipated Barriers to Discharge: None Identified Patient/Family Education Needs: Review discharge instructions, discuss Ask Me Three Transportation: RCT RCT Transportation: Wheel chair van Plan: Arlene requires STR for strengthening prior to returning home. She does not have a qualifying stay, although is ACO attributed therefor referral options are limited to the above facilities. Transportation will be determined by disposition. COA to continue to support patient with LTM (application in process per [place]) and getting increased caregiver support in the home. CM will follow. Social Determinants of Health Screening Will the Patient Participate in the Screening?: Declined to provide Anticipated HH Services Anticipated HH Services at Discharge [facility] Needed,.
[2025-08-19] MEDS: Citalopram 20 MG TAB PO (08:32)
[2025-08-19] MEDS: Gabapentin 100 MG CAP 200 MG PO ×3 (08:32→20:21)
[2025-08-19] MEDS: Enoxaparin 30 MG/0.3 ML SYR SC (08:32)
[2025-08-19] MEDS: Metoprolol CR 100 MG TABCR PO ×2 (08:32→20:21)
[2025-08-19] MEDS: Pantoprazole 40 MG TABCR PO (08:32)
[2025-08-19] MEDS: Ferrous Gluconate 324 MG TAB PO (08:32)
[2025-08-19] MEDS: Insulin Aspart 300 UNITS/3 ML PEN SC ×4 (08:35→20:25)
[2025-08-19] MEDS: Nystatin POWDER 60 GM JAR TP ×2 (09:15→20:23)
[2025-08-19 11:39] VITALS: BP 109/58; PULSE 83; RESP 16; TEMP 36.7; O2SAT 98
--- NOTE | 2025-08-19 12:53 | PTTR_ITS ---
PT Notes Visit Reasons: Failure to Thrive, Ambulatory Dysfunction, NIDDM Inpatient Physical Therapy Treatment Note [facility] Date: 08/19/2025 PRECAUTIONS:Fall risk, Standard, Unpredictable movements, fearful/ anxious SUBJECTIVE:1st session:Pt reports she feels good. 2nd session: pt stating she thinks she will do better this afternoon. OBJECTIVE: 1st session:Pt presented high [place] position watching TV with her present. Pt received Gabapentin at ~8:30 am per BRIANA Simon. Pt incontinent large amount of urine in brief. Pt unable to recall events of prior PT sessions over the weekend 2nd session: Pt seated in chair. Pt received Gabapentin at start of session. PAIN: denied VITALS: monitored by Nursing Therapeutic Activities ([id number][]): Direct one-on-one instruction in dynamic activities to improve functional performance. Provided skilled cues and instruction on performance and technique throughout. BED MOBILITY/TRANSFERS Rolling L/R: min a Supine-sit: mod A of 1 ( 1st session) Sit-supine: mod A of 1 ( 2nd session) Sit-stand: mod A of 2 x 3 trials (1st and 2nd session) Stand-sit: Mod A of 2 x 3 trials 1st and 2nd session Bed-Commode:Mod A of 2 with FWW 1st session Commode-chair: Mod A of 2 with FWW 1st session chair to commode: with FWW mod A of 2 to the left (1st and second session) Facilitated safe and correct performance of level surface ambulation covering a distance of 12 feet using use front wheeled walker with Mod assist x2 Did not report of any increased pain. Denied headache, chest pain, and lightheadedness throughout activity. Minimal verbal cueing provided for AD management, directional changes, and posture. Pt demonstrates the following deviations: excessive knee extension on right , inability to advance RLE (dragging behind), impaired foot clearance, . (1st session) Neuromuscular Re-education (80576x[]): Activities that facilitate re-education of movement balance, posture, coordination, and proprioception or kinesthetic sense, requiring skilled tactile and verbal cues Exercises/techniques: BEATRIZ clap slap BUE, toe tapping, ball kicking for spatial awareness, 10 reps SL then alternating marching and alternating LAQ x 10 reps ASSESSMENT:Arlene is demonstrating increased extensor pattern RLE in standing with inability to perform knee flexion or advance / unweight right LE. Pt requiring mod A of 2 for step turn transfers B direction . Pt attempting to sit prior to reaching surface. Pt is at high risk for falls . Arlene was able to isolate hip knee and ankle in sitting position without reports of pain. Coordination testing revealed impaired BEATRIZ BUE and LE with diminished accuracy right side.Pt's was present for 1st session. During 2nd session, pt continued with impaired motor coordination right LE during functional tasks with increased extensor pattern of movement in standing. Pt unable to step back to get BLE against surface for stand to sit . Pt bending left knee while extending right in standing position . PLAN: 1-2x/day, 7 days/week x 1 week. Plan of care has been reviewed with the RECYCLING ATTENDANT providing the service under Physical Therapy direction. Initiate Physical Therapy intervention for strengthening, bed mobility, transfers, gait, balance training, use of assistive device. TREATMENT CODE/TIME: 1st session:10595,33359/ [id number] 2nd session: 33443: [id number] DISCHARGE RECOMMENDATION: SNF
--- NOTE | 2025-08-19 12:58 | TELEFU_ITS ---
Date of service: 08/19/25 Time of Service: 12:58 Nutrition Note NOTE: Received nutrition consult for diabetes education/mgt on 08/13 - have visited with Arlene multiple times this admission in both kitchen and clinical nutrition roles. visited today while eating lunch with Quirino. Denies significant nutrition concerns and declines detailed education at this time in the inpatient setting. She was made aware of outpatient services. However, right now the plan is to rehab in SNF at discharge. Most recent A1C was 5.9% 08/02/25 with some ranges from 7 up into upper 9's historically in chart. 126 FPG with last value on 08/14. Fingersticks mostly in the mid to upper 200's at meals. allergy noted to empagliflozin. Takes glipizide 10mg BID at home and 1,000mg metformin BID as well. Ordered for sensitive sliding scale at meals this admission. no basal insulin currently. BUN/Cr high at baseline from CKD, Hgb/Hct 10.2/31.5 08/14. GFR 27.96 08/14. Pt is DNI/DNR status and with number of co-conditions and >80yrs of age, would consider more relaxed A1C goal of <8%. Current BMI congruent with stage I obesity. Weight currently stable with a small wt gain trend, if anything. Lower extremity edema noted per nursing earlier last month - did not assess today as pt sitting up and eating. IBW=61.6kg. Currently 151% of ideal body weight. AjBW=74.3kg Estimated energy needs: 1733kcals (REEx1.2 activity factor), 59-74g protein (.8- 1.0g/kg AjBW) Nutrition Dx: Overwt/obesity (NC-3.3) related to inactivity and excessive energy kcals, low fiber diet, as evidenced by brief interview with today. Intervention Encouraged high iron choices from animal and plants and pair with vit c rich foods. offered outpatient education as desired Would recommend increasing insulin at meals to moderate scale to get meal time glucose closer to target of <180. Will monitor weight, intake, nutrition related labs, desire for education. Time Spent in Nutritional Counseling and Treatment: 10 min
[2025-08-19 15:06] VITALS: BP 132/57; PULSE 71; RESP 14; TEMP 36.7; O2SAT 95
[2025-08-19 19:17] VITALS: BP 126/66; PULSE 70; RESP 18; TEMP 36.6; O2SAT 98
--- NOTE | 2025-08-19 19:40 | W.PM.PROGNOT ---
Date of Service Date of service: 08/19/25 Time of Service: 19:40 Assessment and Plan Assessment and plan (1) Anxiety: Status: Acute Assessment and plan: Anxiety affecting her ability to ambulate secondary to crippling fear of falling Gabapentin 200 mg TID seems to be helping with her anxiety If no adequate response consider clonazepam 0.5 mg twice daily with recommendation for weaning in approximately 1 month (2) Failure to thrive in adult: Status: Acute Assessment and plan: history of repeated admissions for failure to thrive and seems linked to inability to walk safely at home, perform independent ADL activity and self-care History of frequent falls the patient not having a fear of falling but has no injuries from her falls. rehab referrals placed by care management (3) Abnormal urinalysis: Status: Acute Assessment and plan: Urinalysis trace leuk est - no antibiotics Urine culture insignificant mixed growth (4) Ambulatory dysfunction: Status: Chronic Assessment and plan: has been able to be safely re-ambulated although PT recommends SNF as she is unpredictable Ongoing PT (5) Intertriginous candidiasis: Status: Acute Assessment and plan: Continue nystatin powder and skin care. (6) Non-insulin dependent type 2 diabetes mellitus: Status: Chronic Assessment and plan: Ongoing glucometer measurements Ac and HS with SSI coverage prior to meals while hospitalized. Resume outpatient medical therapy at discharge to SNF - will hold at this time (7) (HFpEF) heart failure with preserved ejection fraction: Status: Acute Assessment and plan: No exacerbation will continue outpatient medical therapy. LVEF 60-65% on 03/01/25 Will continue home dose lasix and adjust PRN - diuretics and SGLT2 inhibitors are recommended in HFpEF Skin care of chronic changes in lower extremities. (8) HTN (hypertension): Assessment and plan: Continue home medical therapy with furosemide Metoprolol succinate mostly for rate control in atrial fibrillation d/t beta-1 selective blocking properties but still can have effect on blood pressure control (9) Atrial fibrillation: Status: Chronic Assessment and plan: As above Refused anticoagulation in 2022 Now the patient might not be a candidate for long-term anticoagulation with risk of falling but this could be reconsidered if she will be discharged to SNF (10) Depression: Status: Chronic Assessment and plan: No exacerbation, continue home dose citalopram (11) CKD (chronic kidney disease): Status: Chronic Assessment and plan: No exacerbation , no NICOLE with Cr around baseline at 1.8 (12) Hypothyroidism (acquired): Status: Chronic Assessment and plan: TSH is elevated > 6 with normal T4 Continue outpatient medical therapy- might have failed to take her medicines at home outpatient f/u (13) Obesity (BMI 30.0-34.9): Status: Acute Assessment and plan: counselling re: GLP-1 and f/u discussion with PCP consider nutrition consultation (14) Breast cancer: Assessment and plan: 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 Continue dressing change Q 24 hours with mepilex to scalp (15) On deep vein thrombosis (DVT) prophylaxis: Status: Acute Assessment and plan: Ongoing LMWH Discussed with Dr. Reed Subjective Subjective Patient reports: no new complaints, tolerating liquids well, tolerating a regular diet, voiding w/o difficulty, bowel movement and afebrile; denies flatus, diarrhea, nausea or vomiting Interval history since last seen: Pleasant, alert, continues to express wishes to work with PT. States she is feeling less anxious over all, however still has a dibilitating fear of falling. Exam Const General: cooperative, comfortable, no acute distress and frail appearing Nutritional Appearance: obese Orientation: alert, awake and oriented x3 HENMT Head: other (old well healed surgical scar across top of head) Mouth: moist mucous membranes abnormal (slightly dry) Neck Neck: no JVD Resp Effort & Inspection: normal respiratory effort Auscultation: diminished lung sounds bilaterally and no wheezes Cardio Rate: regular rate Rhythm: regular rhythm GI Inspection: normal to inspection Palpation: soft Neuro General: patient alert, patient awake and patient oriented x3 Psych Mental Status: mental status grossly normal Speech and Movement: speech and movement normal Mood: anxious mood Affect: anxious affect Objective Last Vital Signs Temp 36.6 C 08/19/25 19:17 Pulse 70 08/19/25 19:17 Resp 18 08/19/25 19:17 BP 126/66 08/19/25 19:17 Pulse Ox 98 08/19/25 19:17 Time Spent with Patient Time Spent with Patient: 25-34 minutes Time was spent: preparing to see the patient(eg.review tests), ordering medications,tests, procedures, referring, communicating with other health youth career specialist, indepentently interpreting results, counseling the patient and care coordination
[2025-08-19] MEDS: Simvastatin 20 MG TAB PO (20:20)
[2025-08-19] MEDS: Mirtazapine 15 MG TAB 30 MG PO (20:21)
[2025-08-19 23:45] VITALS: BP 112/56; PULSE 66; RESP 18; TEMP 36.4; O2SAT 95
[2025-08-20 02:54] VITALS: BP 135/74; PULSE 81; RESP 16; TEMP 36.6; O2SAT 99
[2025-08-20] MEDS: Levothyroxine 88 MCG TAB PO (05:45)
[2025-08-20 07:50] VITALS: BP 144/52; PULSE 71; RESP 16; TEMP 36.3; O2SAT 98
--- NOTE | 2025-08-20 08:24 | CMPROGNOTE_ITS ---
Date of service: 08/20/25 Time of Service: 08:25 Care Management Progress Note Progress Note Text Progress Note Text: Arlene was sitting in a wheelchair when CM met with her. She is accompanied by her Quirino, who appeared discouraged as he shared that he felt Arlene had been making progress with PT, up until this morning when she reportedly experienced an anxiety attack and is unable to transfer out of her wheelchair at this time. Quirino voiced uncertainty about next steps and inquired whether Arlene would be eligible for a Hospital bed, if she were to discharge home? He feels that a hospital bed would allow him to provide bedside care, including a ssistance with the bedpan and bed baths. Quirino is tearful as he reflects on his growing realization over the past week that placement in exterminator helper termite care may be needed in the near future. Arlene whom is present for this conversation is tearful and verbalizes that she does not want fpc care and wants to discharge home. Fortunately, per Alla from the [facility], Arlene has LTM and C[employer] High Highest needs which qualifies her for 22 hours of personal care every 2 weeks and 720 hours of homemaker support per calendar year. She has never been agreeable to use these services until now, and Alla intends to reach out to [facility] and come up with a schedule for personal care/home connect lpn support. In addition, CM placed an order for a hospital bed, and Alla mentioned a home modification coverage that could possibly cover the cost if it gets denied by insurance. CM is awaiting an update from PT and will continue to support a safe discharge plan. CM will continue to follow. New referrals sent [facility]-CM [facility] CM left message 08/19/25 [facility]-Still reviewing 08/19/25 [facility]-resent referral via email 08/19/25 [facility]resent referral via email 08/19/25 No Bed Offer [facility]-declined [facility]-not open to admissions 08/19/25 [facility]-declined [facility]- Decline 08/19/25 [facility]-Full, will re-review next week. 08/16/25 [facility]- Full, CM will follow 08/19/25 [facility]-Full, CM will follow 08/19/25 Discharge Potential Discharge Needs: PCP F/U Appt Anticipated Barriers to Discharge: Bed availability Patient/Family Education Needs: Review discharge instructions, discuss Ask Me Three Transportation: RCT RCT Transportation: Wheel chair van Plan: PT recommends SNF. Referrals to ACO attributed facilities are pending, no bed offers have been received to date. Arlene has LTM/CFC High Highest needs and is eligible for increased caregiver support in the home. It is important to note that up until this time she has not agreed to the additional help, and has become agreeable. Transportation will be determined by disposition. CM will follow. Social Determinants of Health Screening Will the Patient Participate in the Screening?: Declined to provide
[2025-08-20] MEDS: Normal Saline Flush 10 ML SYR IVP (08:57)
[2025-08-20] MEDS: Metoprolol CR 100 MG TABCR PO ×2 (08:57→21:16)
[2025-08-20] MEDS: Pantoprazole 40 MG TABCR PO (08:57)
[2025-08-20] MEDS: Ferrous Gluconate 324 MG TAB PO (08:57)
[2025-08-20] MEDS: Gabapentin 100 MG CAP 200 MG PO ×3 (08:57→21:16)
[2025-08-20] MEDS: Citalopram 20 MG TAB PO (08:57)
[2025-08-20] MEDS: Enoxaparin 30 MG/0.3 ML SYR SC (08:57)
[2025-08-20] MEDS: Insulin Aspart 300 UNITS/3 ML PEN SC ×4 (08:58→22:05)
[2025-08-20] MEDS: Nystatin POWDER 60 GM JAR TP ×2 (08:58→21:16)
[2025-08-20 15:15] VITALS: BP 127/53; PULSE 79; RESP 16; TEMP 36.8; O2SAT 98
--- NOTE | 2025-08-20 15:47 | PT.INTREAT ---
Date of service: 08/20/25 PT Notes Visit Reasons: Failure to Thrive, Ambulatory Dysfunction, NIDDM Inpatient Physical Therapy Treatment Note [facility] Date: 08/20/2025 PRECAUTIONS:Fall risk, Standard, Unpredictable movements, fearful/ anxious SUBJECTIVE: Start of session patient reporting she is willing to walk. OBJECTIVE: Patient presented seated in chair visiting. Patient calm. PAIN: denied VITALS: monitored by Nursing Therapeutic Activities ([id number][]): Direct one-on-one instruction in dynamic activities to improve functional performance. Provided skilled cues and instruction on performance and technique throughout. BED MOBILITY/TRANSFERS Sit-stand: min A of 2 x1 trial Stand-sit: Min A of 2 x 1 trial Chair– wheel chair with FWW min assist of 2 max verbal and tactile cues for safe approach to wheelchair ASSESSMENT: Patient became anxious after initial transfer to wheelchair. Patient with attempts x 20 to stand from wheelchair at FWW. PT also attempted to perform squat pivot with assist of 2 from w/c to stationary recliner however pt was unable to perform forward lean of trunk. Pt then became anxious and resistive to forward lean. Patient began crying then would stop attempt to stand then would start crying again became very anxious. present stating this is what happens at home. Of note patient did receive gabapentin as scheduled. Patient remained in wheelchair at end of session as she was too upset and this therapist did not feel comfortable forcing patient out of wheelchair. Patient was provided with multiple opportunities to rest during session and provided opportunities to perform task on her own however patient became more more anxious and fearful. BRIANA Cruz notified. Patient's anxiety and fear limits her potential and places her and staff at risk for injury. As well as her if she was to return home. PLAN: 1-2x/day, 7 days/week x 1 week. Plan of care has been reviewed with the WEATHER FORECASTER providing the service under Physical Therapy direction. Initiate Physical Therapy intervention for strengthening, bed mobility, transfers, gait, balance training, use of assistive device. TREATMENT CODE/TIME: 93584/[id number] DISCHARGE RECOMMENDATION: SNF
--- NOTE | 2025-08-20 18:44 | W.PM.PROGNOT ---
Date of Service Date of service: 08/20/25 Time of Service: 18:44 Assessment and Plan Assessment and plan (1) Anxiety: Status: Acute Assessment and plan: Anxiety affecting her ability to ambulate secondary to crippling fear of falling Gabapentin increased to 300 mg TID as she had more anxiety today and did not want to get up. would like to take her home; care managers are working on a plan and a hospital bed for home. If no adequate response consider clonazepam 0.5 mg twice daily with recommendation for weaning in approximately 1 month (2) Failure to thrive in adult: Status: Acute Assessment and plan: history of repeated admissions for failure to thrive and seems linked to inability to walk safely at home, perform independent ADL activity and self-care History of frequent falls the patient not having a fear of falling but has no injuries from her falls. rehab referrals placed by care management (3) Abnormal urinalysis: Status: Acute Assessment and plan: Urinalysis trace leuk est - no antibiotics Urine culture insignificant mixed growth (4) Ambulatory dysfunction: Status: Chronic Assessment and plan: has been able to be safely re-ambulated although PT recommends SNF as she is unpredictable Ongoing PT (5) Intertriginous candidiasis: Status: Acute Assessment and plan: Continue nystatin powder and skin care. (6) Non-insulin dependent type 2 diabetes mellitus: Status: Chronic Assessment and plan: Ongoing glucometer measurements Ac and HS with SSI coverage prior to meals while hospitalized. Resume outpatient medical therapy at discharge to SNF - will hold at this time (7) (HFpEF) heart failure with preserved ejection fraction: Status: Acute Assessment and plan: No exacerbation will continue outpatient medical therapy. LVEF 60-65% on 03/01/25 Will continue home dose lasix and adjust PRN - diuretics and SGLT2 inhibitors are recommended in HFpEF Skin care of chronic changes in lower extremities. (8) HTN (hypertension): Assessment and plan: Continue home medical therapy with furosemide Metoprolol succinate mostly for rate control in atrial fibrillation d/t beta-1 selective blocking properties but still can have effect on blood pressure control (9) Atrial fibrillation: Status: Chronic Assessment and plan: As above Refused anticoagulation in 2022 Now the patient might not be a candidate for long-term anticoagulation with risk of falling but this could be reconsidered if she will be discharged to SNF (10) Depression: Status: Chronic Assessment and plan: No exacerbation, continue home dose citalopram (11) CKD (chronic kidney disease): Status: Chronic Assessment and plan: No exacerbation , no NICOLE with Cr around baseline at 1.8 (12) Hypothyroidism (acquired): Status: Chronic Assessment and plan: TSH is elevated > 6 with normal T4 Continue outpatient medical therapy- might have failed to take her medicines at home outpatient f/u (13) Obesity (BMI 30.0-34.9): Status: Acute Assessment and plan: counselling re: GLP-1 and f/u discussion with PCP consider nutrition consultation (14) Breast cancer: Assessment and plan: 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 Continue dressing change Q 24 hours with mepilex to scalp (15) On deep vein thrombosis (DVT) prophylaxis: Status: Acute Assessment and plan: Ongoing LMWH Discussed with Dr. Foster Subjective Subjective Patient reports: no new complaints, tolerating liquids well, tolerating a regular diet, voiding w/o difficulty, bowel movement and afebrile; denies nausea or vomiting Interval history since last seen: Today she states she is doing well, however has more anxiety with the thought of ambulation and does not get up [facility] PT or nursing. is at bedside. Exam Const General: cooperative, comfortable, no acute distress and frail appearing Nutritional Appearance: obese Orientation: alert, awake and oriented x3 HENMO Head: other (old well healed surgical scar across top of head) Mouth: moist mucous membranes abnormal (slightly dry) Neck Neck: no JVD Resp Effort & Inspection: normal respiratory effort Auscultation: diminished lung sounds bilaterally and no wheezes Cardio Rate: regular rate Rhythm: regular rhythm GI Inspection: normal to inspection Palpation: soft Neuro General: patient alert, patient awake and patient oriented x3 Psych Mental Status: mental status grossly normal Speech and Movement: speech and movement normal Mood: anxious mood Affect: anxious affect Objective Last Vital Signs Temp 36.8 C 08/20/25 15:15 Pulse 79 08/20/25 15:15 Resp 16 08/20/25 15:15 BP 127/53 L 08/20/25 15:15 Pulse Ox 98 08/20/25 15:15 Time Spent with Patient Time Spent with Patient: 25-34 minutes Time was spent: preparing to see the patient(eg.review tests), ordering medications,tests, procedures, referring, communicating with other health youth care professional, indepentently interpreting results, counseling the patient and care coordination
[2025-08-20 19:00] VITALS: BP 114/72; PULSE 72; RESP 18; TEMP 36.6; O2SAT 98
[2025-08-20] MEDS: Simvastatin 20 MG TAB PO (21:16)
[2025-08-20] MEDS: Mirtazapine 15 MG TAB 30 MG PO (21:16)
[2025-08-21 00:18] VITALS: BP 115/51; PULSE 70; RESP 16; TEMP 35.9; O2SAT 97
[2025-08-21 03:41] VITALS: BP 120/52; PULSE 67; RESP 18; TEMP 35.9; O2SAT 98
[2025-08-21] MEDS: Levothyroxine 88 MCG TAB PO (05:19)
[2025-08-21] MEDS: Pantoprazole 40 MG TABCR PO (07:30)
--- NOTE | 2025-08-21 08:54 | CMPROGNOTE_ITS ---
Date of service: 08/21/25 Time of Service: 11:56 Care Management Progress Note Progress Note Text Progress Note Text: Arlene was sitting up in the chair when CM met with her. [place] was not present at this time. CM again discussed the potential need for long-term care placement; however, Arlene remains consistent in expressing her preference to return home following discharge from [facility]. An order has been placed through [facility] for a hospital bed. Per [employer], delivery cannot occur until it is confirmed that Arlene has returned home. If she transitions to a short-term rehabilitation facility, the bed can be delivered to her home upon discharge from that facility. Per report, Arlene’s anxiety is currently better controlled, and her gabapentin dosage has been increased. CM has requested a palliative care consult to further discuss goals of care, address ongoing symptom management (particularly anxiety if she returns home), and add an additional layer of community support. CM re-emailed a referral to the [facility]. CM discussed Arlene’s CFC benefit with [facility], who confirmed that they are currently staffed in the area and can provide both Home Health and CFC services to qualifying participants. An email was sent to [facility] and the [place] [facility] to follow up on the next steps for continuing with [facility] for CFC services should Arlene return home. [facility] will follow. Pending [facility]- left message 08/19/25 [facility]-Still reviewing 08/19/25 [facility]-resent referral via email 08/19/25 [facility]-resent referral via email 08/19/25 [facility]- resent referral and followed up 08/21/25 [facility] Bed Offer [facility]not open to admissions 08/19/25 [facility]- Decline 08/19/25 [facility]-Full, will re-review next week. [facility]/16/[address] [facility], CM will follow 08/19/[address] [facility], CM will follow 08/19/25 Social Determinants of Health Screening Will the Patient Participate in the Screening?: Declined to provide
[2025-08-21] MEDS: Ferrous Gluconate 324 MG TAB PO (09:02)
[2025-08-21] MEDS: Gabapentin 100 MG CAP 200 MG PO ×3 (09:02→20:48)
[2025-08-21] MEDS: Citalopram 20 MG TAB PO (09:02)
[2025-08-21] MEDS: Enoxaparin 30 MG/0.3 ML SYR SC (09:03)
[2025-08-21] MEDS: Metoprolol CR 100 MG TABCR PO ×2 (09:03→20:47)
[2025-08-21] MEDS: Nystatin POWDER 60 GM JAR TP ×2 (09:03→20:48)
[2025-08-21] MEDS: Insulin Aspart 300 UNITS/3 ML PEN SC ×4 (09:03→23:23)
[2025-08-21 10:36] VITALS: BP 123/57; PULSE 68; RESP 16; TEMP 36.1; O2SAT 98
--- NOTE | 2025-08-21 15:03 | PT.INTREAT ---
Date of service: 08/21/25 PT Notes Visit Reasons: Failure to Thrive, Ambulatory Dysfunction, NIDDM Inpatient Physical Therapy Treatment Note [facility] Date: 08/21/2025 PRECAUTIONS: Standard, Fall risk, anxiety/ fearful with movement SUBJECTIVE: Pt stated they were glad the sun was out today. PT stated they heard the pt did well this morning from moving from bed to recliner, pt stated if they were unsure if they did well. After ambulation pt asked if they did well today. Pt reported her knees felt tired. ( when asked to show where pt rubbed distal quad / suprapatellar area of BLE) OBJECTIVE: General observation: PT arrived and pt was receiving medication from RN. While taking medication pt spilt coffee on themselves by accident. PT helped the pt clean the spillage and provided the pt with a new gown. Pt continues to need time for them to find proper hand placement before standing from the recliner. While ambulating pt has center of gravity shifted posterior, and after verbal cueing couldn’t shift their center of gravity anterior. PAIN: No pain reported VITALS: Monitored by Nursing Therapeutic Activities ([id number]): BED MOBILITY/TRANSFERS Sit-stand: Recliner to stand: Min A of 2 with FWW. Pt was able to stand twice. Once to allow PT to place a foam pad underneath pt to bring her higher in the recliner and help her stand. The second time the pt stood and ambulated 10 feet before needing to sit again. Stand-sit: Stand to Recliner: Min A of 1. Pt had difficulties lowering themselves to the recliner. PT provided verbal and tactile cues for pt to reach behind her and feel for the chair before she sits down. Pt forgets to reach back for the chair and will sit down. On 2nd trial the elevated seat height, allowed for improved descent onto chair however after ambulating pt was unable to reach as she became anxious and fearful. Ambulation: Contact Guard of 1 with FWW followed behind with stationary recliner for 10 feet. Pt continues to shift weight posteriorly, and presents unpredictable when needing to sit. This resulted in a decrease in activity tolerance for safety concerns. PT Provided skilled cues and instruction on performance and technique throughout ambulation. Cues involved pt weight shifting anterior to prevent pt from leaning back excessively, proper alignment with recliner before sitting down, and proper hand placement. ASSESSMENT: Pt has shown moments of only needing contact guard assist of 1 while being followed behind with stationary chair. However,most of the time pt requires assist of 2 d/t her unpredictable onset of fear and anxiety. pt continues to present with unsteadiness with ambulation from B LE weakness and decreased balance, and high anxiety resulting in the patient to retropulsion. Due to these deficits pt maintain a high fall risk. At current level of function, pt would need to be bed level at home for her to care for her safely. PLAN: 1-2x/day, 7 days/week x 1 week. Plan of care has been reviewed with the [facility] [employer] providing the service under Physical Therapy direction. Initiate Physical Therapy intervention for strengthening, bed mobility, transfers, gait, balance training, use of assistive device. TREATMENT CODE/TIME: 17968/9:05-9:32 27 total minutes DISCHARGE RECOMMENDATION: SNF vs HHPT if her is able to provide level of care Written by Med Funes DPTS Supervised by Ankita Vidal, PT [facility]
--- NOTE | 2025-08-21 16:41 | PGE_ITS ---
Date of Service Date of service: 08/21/25 Time of Service: 16:41 Assessment and Plan Assessment and plan (1) Anxiety: Status: Acute Assessment and plan: Continues to have anxiety affecting her ability to ambulate secondary to crippling fear of falling Gabapentin increased to 300 mg TID as she had more anxiety today and did not want to get up. would like to take her home; care managers are working on a plan and a hospital bed for home. If no adequate response consider clonazepam 0.5 mg twice daily with recommendation for weaning in approximately 1 month (2) Failure to thrive in adult: Status: Acute Assessment and plan: history of repeated admissions for failure to thrive and seems linked to inability to walk safely at home, perform independent ADL activity and self-care PT eval : Patient required Min A x2 for [id number] from recliner with FWW, and was able to stand twice. Improved with elevated seat height but continued to demonstrate difficulty with controlled descent during [id number], requiring verbal and tactile cues to reach for chair. Ambulated ~10 ft with CGA x1 using FWW while recliner was followed behind for safety. Mobility limited by posterior weight shift, anxiety, and retropulsion, contributing to high fall risk. Patient inconsistently participates due to fear, resulting in frequent need for assist x2. At current functional level, home mobility would require bed-level care for safety unless significant support is available. Recommendation: Continue skilled PT daily to address strength, balance, transfers, and gait. Discharge to SNF is recommended unless home caregiver can safely manage current assist level. rehab referrals placed by care management (3) Abnormal urinalysis: Status: Acute Assessment and plan: Urinalysis trace leuk est - no antibiotics Urine culture insignificant mixed growth (4) Ambulatory dysfunction: Status: Chronic Assessment and plan: Per PT: Patient required Min A x2 for [id number] from recliner with FWW, and was able to stand twice. Improved with elevated seat height but continued to demonstrate difficulty with controlled descent during [id number], requiring verbal and tactile cues to reach for chair. Ambulated ~10 ft with CGA x1 using FWW while recliner was followed behind for safety. Mobility limited by posterior weight shift, anxiety, and retropulsion, contributing to high fall risk. Patient inconsistently participates due to fear, resulting in frequent need for assist x2. At current functional level, home mobility would require bed-level care for safety unless significant support is available. Recommendation: Continue skilled PT daily to address strength, balance, transfers, and gait. Discharge to SNF is recommended unless home caregiver can safely manage current assist level. (5) Intertriginous candidiasis: Status: Acute Assessment and plan: Continue nystatin powder and skin care. (6) Non-insulin dependent type 2 diabetes mellitus: Status: Chronic Assessment and plan: Ongoing glucometer measurements Ac and HS with SSI coverage prior to meals while hospitalized. Resume outpatient medical therapy at discharge to SNF - will hold at this time (7) (HFpEF) heart failure with preserved ejection fraction: Status: Acute Assessment and plan: No exacerbation will continue outpatient medical therapy. LVEF 60-65% on 03/01/25 Will continue home dose lasix and adjust PRN - diuretics and SGLT2 inhibitors are recommended in HFpEF Skin care of chronic changes in lower extremities. (8) HTN (hypertension): Assessment and plan: Continue home medical therapy with furosemide Metoprolol succinate mostly for rate control in atrial fibrillation d/t beta-1 selective blocking properties but still can have effect on blood pressure control (9) Atrial fibrillation: Status: Chronic Assessment and plan: As above Refused anticoagulation in 2022 Now the patient might not be a candidate for long-term anticoagulation with risk of falling but this could be reconsidered if she will be discharged to SNF (10) Depression: Status: Chronic Assessment and plan: No exacerbation, continue home dose citalopram (11) CKD (chronic kidney disease): Status: Chronic Assessment and plan: No exacerbation , no NICOLE with Cr around baseline at 1.8 (12) Hypothyroidism (acquired): Status: Chronic Assessment and plan: TSH is elevated > 6 with normal T4 Continue outpatient medical therapy- might have failed to take her medicines at home outpatient f/u (13) Obesity (BMI 30.0-34.9): Status: Acute Assessment and plan: counselling re: GLP-1 and f/u discussion with PCP consider nutrition consultation (14) Breast cancer: Assessment and plan: 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 Continue dressing change Q 24 hours with mepilex to scalp (15) On deep vein thrombosis (DVT) prophylaxis: Status: Acute Assessment and plan: Ongoing LMWH Discussed with Dr. Foster Subjective Subjective Patient reports: no new complaints, tolerating liquids well, tolerating a regular diet, voiding w/o difficulty, bowel movement and afebrile; denies flatus, diarrhea, vomiting or shortness of breath Exam Const General: cooperative, comfortable, no acute distress and frail appearing Nutritional Appearance: obese Orientation: alert, awake and oriented x3 HENMT Head: other (old well healed surgical scar across top of head) Mouth: moist mucous membranes abnormal (slightly dry) Neck Neck: no JVD Resp Effort & Inspection: normal respiratory effort Auscultation: diminished lung sounds bilaterally and no wheezes Cardio Rate: regular rate Rhythm: regular rhythm GI Inspection: normal to inspection Palpation: soft Neuro General: patient alert, patient awake and patient oriented x3 Psych Mental Status: mental status grossly normal Speech and Movement: speech and movement normal Mood: anxious mood Affect: anxious affect Objective Last Vital Signs Temp 36.1 C L 08/21/25 10:36 Pulse 68 08/21/25 10:36 Resp 16 08/21/25 10:36 BP 123/57 L 08/21/25 10:36 Pulse Ox 98 08/21/25 10:36 Time Spent with Patient Time Spent with Patient: 25-34 minutes Time was spent: preparing to see the patient(eg.review tests), ordering medications,tests, procedures, referring, communicating with other health health care specialist, indepentently interpreting results, counseling the patient and care coordination
[2025-08-21 20:26] VITALS: BP 110/54; PULSE 73; RESP 16; TEMP 36; O2SAT 98
[2025-08-21] MEDS: Simvastatin 20 MG TAB PO (20:47)
[2025-08-21] MEDS: Mirtazapine 15 MG TAB 30 MG PO (20:48)
[2025-08-22] MEDS: Levothyroxine 88 MCG TAB PO (06:04)
[2025-08-22 07:53] VITALS: BP 136/85; PULSE 74; RESP 18; TEMP 36.8; O2SAT 98
[2025-08-22] MEDS: Insulin Aspart 300 UNITS/3 ML PEN SC ×4 (08:29→21:58)
[2025-08-22] MEDS: Pantoprazole 40 MG TABCR PO (08:30)
[2025-08-22] MEDS: Citalopram 20 MG TAB PO (08:30)
[2025-08-22] MEDS: Normal Saline Flush 10 ML SYR IVP (08:30)
[2025-08-22] MEDS: Gabapentin 100 MG CAP 200 MG PO ×2 (08:30→14:02)
[2025-08-22] MEDS: Metoprolol CR 100 MG TABCR PO ×2 (08:30→19:59)
[2025-08-22] MEDS: Ferrous Gluconate 324 MG TAB PO (08:30)
[2025-08-22] MEDS: Enoxaparin 30 MG/0.3 ML SYR SC (08:30)
[2025-08-22] MEDS: Nystatin POWDER 60 GM JAR TP ×2 (08:32→20:03)
--- NOTE | 2025-08-22 09:30 | CMPROGNOTE_ITS ---
Date of service: 08/22/25 Time of Service: 09:31 Care Management Progress Note Progress Note Text Progress Note Text: Arlene was sitting up in the chair when CM met with her and is accompanied by her Quirino. Arlene is medically ready to discharge, however her insulin regimen requires adjustment due to elevated sugars. Also, patients anxiety concerning ambulation continues to wax and wane and a med change was discussed with the team earlier today. Per Quirino, Arlene has been doing quite well with PT and he is leaning towards taking her home if he can get a Hospital Bed and increased caregiver support. He thinks he can manage her care much easier with a hospital bed in the home. We can get her a hospital bed through [employer], likely by Tuesday which will be fully covered by her insurance. [facility] can also get increased services into the home through [employer], 22 hours of personal care ev. 2 weeks, in addition to several hours of homemaker support. This is already in the works per Alla from the [employer], but in order to get a schedule approved they need to be sure if the plan moving forward is to go home. Palliative consult is pending to further discuss goals of care, address ongoing symptom management (particularly anxiety if she returns home), and add an additional layer of community support. CM will follow. Pending [facility]- left message 08/19/25 [facility]-Still reviewing 08/19/25 [facility]-resent referral via email 08/19/25 [facility]-resent referral via email 08/19/25 [facility]- resent referral and followed up 08/21/25 No Bed Offer [facility]-not open to admissions 08/19/25 [facility] Decline 08/19/25 [facility]-Full, will re-review next week. 08/16/25 [facility], CM will follow 08/19/25 [facility] [place]-Full, CM will follow 08/19/25 Discharge Anticipated Barriers to Discharge: Bed availability Patient/Family Education Needs: Review discharge instructions, discuss [facility] Transportation: RCT Plan: SNF for STR (No bed offers have been received to date) vs. Home with [facility] and increased caregiver support, if [facility] is able to take on this level of care. If going home: Will need to be medically cleared in terms of med adjustments (Anxiety/Elevated BS.) Will need new [facility] RN/PT/OT. Will need a hospital Bed, $0 through [employer]. Discharge date will be needed to order the bed. Will need increased caregiver support provided by [facility] (eligible for 22hrs ev. 2 weeks, support will be set up by Alla from the [facility].) Will need [facility] W[facility]C van for transportation. Given the patients history of multiple readmissions, transitioning her to SWB1 may be appropriate while care coordination is completed and all needs are met. Palliative consult is pending for Tuesday. Social Determinants of Health Screening Will the Patient Participate in the Screening?: Declined to provide
--- NOTE | 2025-08-22 11:36 | PT.INPN ---
PT Notes Visit Reasons: Failure to Thrive, Ambulatory Dysfunction, NIDDM Inpatient Physical Therapy Progress Note Date: 08/22/2025 Dates of Service: 08/15/2025-08/22/2025 PRECAUTIONS: fear, anxiety, fall risk , standard SUBJECTIVE: Pt stated she ate a lot today. When asked if she needed to use the commode pt reported they didn’t. (However, after a transfer to the commode pt had a BM.) OBJECTIVE: PAIN: No pain reported BED MOBILITY/TRANSFERS Rolling L/R: Stand by assist of 1 Supine-sit: Min A of 1 Sit-supine: Min assist of 1 for LEs Sit-stand: Inconsistent Contact guard assist to Mod A of 2. Stand-sit: Inconsistent Contact guard assist to Mod A of 2 Bed-Chair: Inconsistent Contact guard assist to Mod A of 2, with verbal and tactile cueing for hand placement, and body position to align with bed with FWW Chair-bed: Inconsistent Contact guard assist to Mod A of 2 , with verbal and tactile cueing for hand placement, and body position to align with bed with FWW GAIT Assistive Device: FWW and chair follow Weight bearing: As tolerated Assist: Inconsistent Contact guard assist to Mod A of 2 Distance: ambulate 20 feet when not fearful or anxious. Deviation: step to pattern. Sometimes pt will have excessive extension of right knee, hindering her ability to advance right LE and to weight shift onto RLE to advance LLE. VITALS: monitored by Nursing THEREX: Both LE Ankle Pumps: 1X10 Seated Marches: 1X10 Seated LAQ: 1X10 STAIRS: Not performed [facility] [address] 6 click Score : 8 with 86.86% deficit ASSESSMENT: Patient is a 79-year-old female referred to physical therapy services with diagnosis of failure to thrive. While ambulating with FWW today, pt center of gravity shifted posterior, and after verbal cueing couldn’t shift their center of gravity anterior. Ambulating w/FWW back to the recliner from the commode, pt leaned posteriorly back into the PT. Pt didn’t realize she was leaning into the PT until the situation was explained to the pt by the PT. Pt continues to have moments of fear and anxiety with movement. These episodes of fear and anxiety are unpredictable and varies from day to day, and throughout the day. Without fear and anxiety pt is able to sit to stand/ambulate w/FWW as a contact guard assist. However, these episodes cause the pt to become a Mod A of 2 with sit to stand/ambulation w/FWW or inability to perform. This fear of ambulating to the commode has resulted in the pt to hold their urge to urinate, instead of calling for help to ambulate to the commode. Multiple times pt has reported in not needing to perform a BM, but PT has convinced the pt to walk w/FWW to the commode, and resulting in pt having BM. Pt with impaired motor control/coordination and ability to follow instructions at times of increased anxiety/fear. Skilled PT continues to provide verbal and tactile cueing to assist pt with body position and directions. Pt continues to exhibit excessive R knee extension with ambulation resulting in retropulsion and increase risk for fall. Pt continues to require skilled physical therapy to address decreased activity tolerance, balance, and lower extremity strength. Pt started on Gabapentin during this time frame with no improvement noted in level of anxiety/ fear. Of note pt has developed increased right LE extensor tone/ pattern in standing since Gabapentin was started. Per RN , pt will be tapered off gabapentin and starting Clonazepam for anxiety. Patient is assessed as a moderate complexity based on the following: o History: 79 yo female presenting with complex comorbidities and past medical history. o Examination: demonstrates impaired strength, functional activity tolerance and balance limiting all aspects of functional mobility as specified above o Presentation: Evolving o Decision Making: Moderate GOALS (Met/Not NET) Goals X1 week 1. Supine-Sit supervision (Not Met continue goal) 2. Sit-Supine supervision (Not Met continue goal) 3. Sit-Stand CGA (Not Met revised goal) Sit to stand with mod A of 1 4. Stand-Sit CGA (Not Met revised goal) Stand to sit with Mod A of 1 5. Bed-Chair CGA with FWW (Not Met revised goal) Bed to chair with Mod A of 1 and FWW 6. Chair-Bed CGA with FWW (Not Met revised goal) chair to bed with FWW Mod A of 1 7. amb with FWW CGA >25 feet (Not Met revised goal) amb 10 feet with FWW with mod A of 1 and w/c follow for safety PLAN OF CARE/TREATMENT PLAN: 1-2x/day, 7 days/ week x 1 week Plan of care has been reviewed with the IMPERSONATOR CHARACTER providing the service under Physical therapy direction. Initiate physical therapy intervention for strengthening, bed mobility, transfers, gait, balance training, use of assistive device. DISCHARGE RECOMMENDATIONS: SNF TREATMENT CODE/TIME: 54722/ [id number] Written By : Med Funes DPJOSE MARIA Supervised By: Ankita Vidal, PT LORELEI
--- NOTE | 2025-08-22 15:27 | PT.INTREAT ---
PT Notes Visit Reasons: Failure to Thrive, Ambulatory Dysfunction, NIDDM Inpatient Physical Therapy Treatment Note [facility] Date: 08/22/2025 PRECAUTIONS:fall, standard, fear anxiety with movement SUBJECTIVE: At end of session pt asked Did I do okay? OBJECTIVE:Pt presented asleep in recliner with chin on chest. Pt easily woke to her name and was agreeable to participate in session PAIN: denies VITALS: monitored by Nursing Therapeutic Activities ([id number][]): Direct one-on-one instruction in dynamic activities to improve functional performance. Provided skilled cues and instruction on performance and technique throughout. - sit to stand from recliner with cushion: mod A x 2 with increased time and multiple attempts to self initiate. - stand to sit from FWW: mod A of 2 with tactile and verbal cue for reaching back. Pt unable to sustain anterior weight shift during descent onto seat of chair. - static stand at FWW with Mod A x2 ( intermittently min A of 2) with cues for upright posture sustained ~90 sec x 1 trial 2nd trial pt sustained stand with Max A of 1 and min A of 1 for ~2mins for dressing change by RN Woodrow seated BLE LAQ, marching with AAROM to achieve full ROM and continues cues for 10 reps and slower speed during eccentric contraction , PF/DF x 10 reps ASSESSMENT: Arlene was able to work through episode of fear and anxiety to perform transfers this pm session. Pt required multiple attempts ( 6-7) to initiate sit to stand from the recliner with assist of 2 and increased time. Pt continues to demonstrate significant retropulsion in sitting, during transitions and in standing. Pt able to sustain upright standing at FWW with max A of 1 to allow for dressing change. With tactile input into back pt noted to increase retropulsion however unable to remove the tactile input d/t need for assistance to sustain standing. During these episodes of fear and anxiety, Arlene is unable to follow instructions and becomes resistive to movement placing herself and staff at risk for injury. PLAN: 1-2x/day, 7 days/week x 1 week. Plan of care has been reviewed with the ENTRANCE GUARD providing the service under Physical Therapy direction. Initiate Physical Therapy intervention for strengthening, bed mobility, transfers, gait, balance training, use of assistive device. TREATMENT CODE/TIME: 19772/ [id number] DISCHARGE RECOMMENDATION: SNF
--- NOTE | 2025-08-22 19:12 | PGE_ITS ---
Date of Service Date of service: 08/22/25 Time of Service: 10:00 Assessment and Plan Assessment and plan (1) Anxiety: Status: Acute Assessment and plan: Continues to have anxiety affecting her ability to ambulate secondary to crippling fear of falling Gabapentin discontinued. would like to take her home; care managers are working on a plan and a hospital bed for home. Clonazepam 0.5 mg twice daily started with recommendation for weaning in approximately 1 month Consider referral to [facility] - care managers aware. (2) Failure to thrive in adult: Status: Acute Assessment and plan: history of repeated admissions for failure to thrive and seems linked to inability to walk safely at home, perform independent ADL activity and self-care PT eval today : She required 6–7 attempts and assistance of two to initiate [id number] from the recliner, with increased time needed. She continues to demonstrate significant retropulsion in sitting, during transitions, and in standing. She was able to maintain upright standing with a front-wheeled walker with maximal assist of one to allow for dressing changes. Tactile support to the back helped maintain stance, though removal of support was not possible due to safety needs. During episodes of fear and anxiety, Arlene becomes unable to follow instructions and can be resistive, increasing risk for injury to herself and staff. Recommendation: Continue skilled PT daily to address strength, balance, transfers, and gait. Discharge to SNF is recommended unless home caregiver can safely manage current assist level. rehab referrals placed by care management (3) Abnormal urinalysis: Status: Acute Assessment and plan: Urinalysis trace leuk est - no antibiotics Urine culture insignificant mixed growth (4) Ambulatory dysfunction: Status: Chronic Assessment and plan: as above (5) Intertriginous candidiasis: Status: Acute Assessment and plan: Continue nystatin powder and skin care. (6) Non-insulin dependent type 2 diabetes mellitus: Status: Chronic Assessment and plan: Ongoing glucometer measurements Ac and HS with SSI coverage prior to meals while hospitalized. Changed to resistant as recommended by the nursing educator. Resume outpatient medical therapy at discharge to SNF - will hold at this time (7) (HFpEF) heart failure with preserved ejection fraction: Status: Acute Assessment and plan: No exacerbation will continue outpatient medical therapy. LVEF 60-65% on 03/01/25 Will continue home dose lasix and adjust PRN - diuretics and SGLT2 inhibitors are recommended in HFpEF Skin care of chronic changes in lower extremities. (8) HTN (hypertension): Assessment and plan: Continue home medical therapy with furosemide Metoprolol succinate mostly for rate control in atrial fibrillation d/t beta-1 selective blocking properties but still can have effect on blood pressure control (9) Atrial fibrillation: Status: Chronic Assessment and plan: As above Refused anticoagulation in 2022 Now the patient might not be a candidate for long-term anticoagulation with risk of falling but this could be reconsidered if she will be discharged to SNF (10) Depression: Status: Chronic Assessment and plan: No exacerbation, continue home dose citalopram (11) CKD (chronic kidney disease): Status: Chronic Assessment and plan: No exacerbation , no NICOLE with Cr around baseline at 1.8 (12) Hypothyroidism (acquired): Status: Chronic Assessment and plan: TSH is elevated > 6 with normal T4 Continue outpatient medical therapy- might have failed to take her medicines at home outpatient f/u (13) Obesity (BMI 30.0-34.9): Status: Acute Assessment and plan: counselling re: GLP-1 and f/u discussion with PCP consider nutrition consultation (14) Breast cancer: Assessment and plan: 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 Continue dressing change Q 24 hours with mepilex to scalp (15) On deep vein thrombosis (DVT) prophylaxis: Status: Acute Assessment and plan: Ongoing LMWH Discussed with Dr. Foster Subjective Subjective Patient reports: no new complaints, tolerating liquids well, tolerating a regular diet, voiding w/o difficulty, bowel movement and afebrile; denies diarrhea, nausea, vomiting or shortness of breath Interval history since last seen: Continues to have anxiety; at bedside. Working with PT. Exam Const General: cooperative, comfortable, no acute distress and frail appearing Nutritional Appearance: obese Orientation: alert, awake and oriented x3 HENMT Head: other (old well healed surgical scar across top of head) Mouth: moist mucous membranes abnormal (slightly dry) Neck Neck: no JVD Resp Effort & Inspection: normal respiratory effort Auscultation: diminished lung sounds bilaterally and no wheezes Cardio Rate: regular rate Rhythm: regular rhythm GI Inspection: normal to inspection Palpation: soft Neuro General: patient alert, patient awake and patient oriented x3 Psych Mental Status: mental status grossly normal Speech and Movement: speech and movement normal Mood: anxious mood Affect: anxious affect Objective Last Vital Signs Temp 36.8 C 08/22/25 07:53 Pulse 74 08/22/25 07:53 Resp 18 08/22/25 07:53 BP 136/85 08/22/25 07:53 Pulse Ox 98 08/22/25 07:53 Time Spent with Patient Time Spent with Patient: 25-34 minutes Time was spent: preparing to see the patient(eg.review tests), ordering medications,tests, procedures, referring, communicating with other health customer care assistant, indepentently interpreting results, counseling the patient and care coordination
[2025-08-22 19:52] VITALS: BP 126/53; PULSE 80; RESP 16; TEMP 36.2; O2SAT 96
[2025-08-22] MEDS: clonazePAM 0.5 MG TAB PO (19:59)
[2025-08-22] MEDS: Simvastatin 20 MG TAB PO (19:59)
[2025-08-22] MEDS: Mirtazapine 15 MG TAB 30 MG PO (19:59)
[2025-08-23] MEDS: Levothyroxine 88 MCG TAB PO (05:59)
[2025-08-23 07:35] VITALS: BP 137/57; PULSE 75; RESP 17; TEMP 36.7; O2SAT 98
[2025-08-23] MEDS: Insulin Aspart 300 UNITS/3 ML PEN SC ×4 (08:06→22:02)
[2025-08-23] MEDS: Ferrous Gluconate 324 MG TAB PO (08:08)
[2025-08-23] MEDS: Metoprolol CR 100 MG TABCR PO ×2 (08:08→19:51)
[2025-08-23] MEDS: Citalopram 20 MG TAB PO (08:08)
[2025-08-23] MEDS: clonazePAM 0.5 MG TAB PO (08:08)
[2025-08-23] MEDS: Pantoprazole 40 MG TABCR PO (08:08)
--- NOTE | 2025-08-23 08:52 | PTTR_ITS ---
PT Notes Visit Reasons: Failure to Thrive, Ambulatory Dysfunction, NIDDM [facility] Date: 08/23/25 PRECAUTIONS: Standard, Fall, anxiety and fear of movement SUBJECTIVE: Am session: Pt stated they slept well this past night. Pt reported her quads (just above the knees) felt a little sore today. When trying to stand up, pt asked for PT to let her try standing by herself, PT ensure her she could, but provided Mod A of 2. Pt reporting her back is itchy. Pm session: Pt stated they were cold prior to session. Post ambulation first ambu lation pt reported wanting to walk again. When asked if she would be able to walk a third time pt reported not wanting to, and that may be too much. OBJECTIVE: General observation: Am Session: Patient Lying in bed when PT arrived. After using the commode, pt continued to lean posteriorly. PT noticed pt had blood on her lower back /side just above the right buttocks appeared to be from pt scratching( reports itchy back). Pm Session: Pt Looked tired and cold. Post session, PT provided pt with a warmed blanket before leaving. PAIN: No pain reported VITALS: AM/PM Monitored by Nursing Therapeutic Activities ([id number][]): Direct one-on-one instruction in dynamic activities to improve functional performance. BED MOBILITY/TRANSFERS Am Session: Supine-sit: Mod A of 1. Pt lacked trunk/abdominal strength and upper body strength to scoot herself closer to the EOB. Sit-stand: Am session: EOB to stand: Mod A of 2 w/FWW. DPTS/PT provided tactile and verbal cues for hand/feet placement, and weight shift cueing. Pt feet will slide forward, and needs PT assistance with preventing feet from sliding. Commode to stand: Mod A of 2 w/FWW: DPTS/ PT provided tactile and verbal cues for hand/feet placement, and weight shift cueing. Pt excessive trunk flexion, and had difficulties to stand up straight. However, with verbal and tactile cueing from DPTS pt able to stand up straighter with slight trunk flexion. Pm session: Pt was able to perform sit to stand Mod A of 1 w/FWW three total times throughout the session. Each sit to stand took less time for setting up, and for performing. Once in standing, Pt thought she was shifting her weight to the left, but was unable too. Then she shifted more weight to the right side Stand-sit: Am session: Stand to commode: Mod A of 1 w/FWW Stand to Recliner: Mod A of 2 w/FWW. Pt had difficulties lowering themselves to the recliner, pt excessive trunk flexion. Pm Session: Stand to Recliner: Mod A of 1 w/FWW, three total times. Am Session Commode to chair: Ambulation: Mod A of 2 w/FWW. Pt right knee completely extended while ambulating. DPTS Provided skilled cues and instruction on performance and technique throughout ambulation. Cues involved pt standing up straight to p revent pt from leaning hips back excessively and leading her to want to sit down. DPTS also provided cueing for proper alignment with recliner before sitting down, and proper hand placement. Pm session: Ambulation: Pt ambulated w/FWW Mod A of 1 and stand by assist following with stationary chair. Pt was able to ambulate 10 feetx2 with a rest in between. Am session: Exercises in bed: B LE Ankle pumps: 1x15 Knee slides: 1x15 Elbow flexion/extension: 1x15 Shoulder flexion: 1x15 ASSESSMENT: Am Session Pt continues to need Min A of 1 to go from laying supine to EOB as pt lack the upper body strength to complete task. Pt has shown moments of needing contact guard assist of 1 w/FWW. However, pt continues to have her right knee completely extended in sit to stand and in ambulation w/FWW, leading to pt needing Mod A of 2. This knee extension may be one cause of high anxiety and patients need to flex her trunk causing the patient to have excessive trunk flexion. This resulted in a decrease in activity tolerance and increased anxiety and fear of falling. Because of these impairments, pt maintains a high fall risk and continues to need skilled physical therapy. Pm Session: Pt performed better this session than prior sessions. Pt needed less time to perform sit to stand w/FWW, able to ambulate w/FWW 10 feet x2. Pt able to scootch closer to edge of chair, and lean forward for proper technique to perform sit to stand. Pt able to stand up straight with verbal cueing, but her trunk will slowly flex forward w/out verbal cueing by DPTS. Pt struggles to weight shift to the left and right knee will fully extend and prevent pt from ambulating/performing sit to stand. Pt would benefit from skilled physical therapy to continue to address pt ability to weight shift, help increase strength, and standing balance. PLAN: 1-2x/day, 7 days/week x 1 week. Plan of care has been reviewed with the EXECUTIVE COMMUNICATIONS MANAGER providing the service under Physical Therapy direction. Initiate Physical Therapy intervention for strengthening, bed mobility, transfers, gait, stairs, balance training, use of assistive device. TREATMENT CODE/TIME: Am Session 34093/8:00-8:33 for a total of 33 minutes Pm session: 54132/1:35-2:04 for a total of 29 minutes DISCHARGE RECOMMENDATION: SNF VS HHPT Written By Med Funes DPTS Supervised BY: Ankita Vidal PT
[2025-08-23] MEDS: Enoxaparin 30 MG/0.3 ML SYR SC (09:29)
[2025-08-23] MEDS: Nystatin POWDER 60 GM JAR TP ×2 (09:30→19:56)
--- NOTE | 2025-08-23 09:46 | CMPROGNOTE_ITS ---
Date of service: 08/23/25 Time of Service: 09:46 Care Management Progress Note Progress Note Text Progress Note Text: Arlene was sitting in a recliner when CM met with her and was accompanied by her Quirino. She did not engage with CM today as she appeared drowsy. The primary reason for Arlene's extended hospitalization is due to her ambulatory disfunction (which is secondary to anxiety) and her need for a safe discharge plan (given that her last 2 most recent discharged have resulted in readmissions, at which time her felt he could not care for her at home.) This morning CM placed a referral to the [facility]; if accepted they may be able to assist her with medication management for her anxiety. Per [facility], her mobility level is below baseline, as she had been ambulatory with a walker around the home up until approximately a month prior to her initial hospitalization. He reports that she had a similar anxiety spell a few years ago , to which he reports STR was effective. CM will follow up on the referral to [facility] on Tuesday. If they decline, Quirino reports that he feels comfortable taking Arlene home. PT is agreeable to this plan if [facility] can provide a high level of care, which he feels he can with a hospital bed and caregiver supports in place. Arlene is also agreeable to receiving more support at home through her LTM/C high highest needs benefit (until now she has refused the support.) CM will continue to follow. Quirino would like to be trained on the use of a gait belt, CM will notify PT. Pending [facility] 08/23/25 [facility]- CM left message 08/19/25 [facility]-Still reviewing 08/19/25 [facility]-resent referral via email 08/19/25 [facility]-resent referral via email 08/19/25 [facility]-CM resent referral and followed up 08/21/25 No Bed Offer [facility]-declined [facility]-not open to admissions 08/19/25 [facility] 08/19/25 [facility]-Full, will re-review next week. 08/16/[address] [facility]- Full, CM will follow 08/19/25 [facility]-Full, CM will follow 08/19/25 Discharge Potential Discharge Needs: PCP F/U Appt Anticipated Barriers to Discharge: Bed availability and Medical Status Patient/Family Education Needs: Review discharge instructions, discuss [facility] Transportation: [facility] Transportation: Wheel chair van Plan: Unfortunately, no offers have been received by any of the [facility] contracted SNF's. [facility] referral is pending, CM will follow up on Tuesday. If going home: Will need to be medically cleared in terms of med adjustments (Anxiety/Elevated BS.) Will need new [facility] RN/PT/OT. Will need a hospital Bed, $0 through [employer] ([place]). Discharge date will be needed to order the bed. Will need increased caregiver support provided by [facility] (eligible for 22hrs ev. 2 weeks, support will be set up by Alla from the [employer].) Will need [facility] W/C van for transportation. Given the patients history of multiple readmissions, transitioning her to SWB1 may be appropriate while care coordination is completed and all needs are met. Social Determinants of Health Screening Will the Patient Participate in the Screening?: Declined to provide
--- NOTE | 2025-08-23 10:13 | PGE_ITS ---
Date of Service Date of service: 08/23/25 Time of Service: 10:14 Assessment and Plan Assessment and plan (1) Failure to thrive in adult: Status: Acute Assessment and plan: -Failure to thrive in adult: History of frequent and repeated admissions for failure to thrive after electing to go home VS SNF. This seemed to be linked to the patient’s inability to walk safely at home, perform independent ADL activity and self-care. Functional status seemed to have regressed shortly s/p discharge as patient was able to transfer form bed to chair. Ongoing PT eval: Still required multiple attempts and assistance of two to initiate [id number] from the recliner, demonstrating ongoing significant retropulsion in sitting, during transitions, and in standing but able to stand with a front-wheeled walker with one assist for dressing changes. Tactile support necessary for stance maintenance and safety. During instances of increased anxiety, the patient is not receptive to instructions and demonstrates resistance to tactile guidance with increasing risk for injury to herself and staff. Ongoing recommendations for: At least daily skilled PT to address strength, balance, transfers, and gait. Discharge to SNF is still recommended as established at the beginning of this admission unless home caregiver can safely manage current assist level, otherwise the patient will most likely be readmitted. Care management had placed referral early in the stay: bed offers pending -Ambulatory dysfunction: as above -Anxiety: Most likely the driving factor in her ability to ambulate secondary to crippling fear of falling Gabapentin discontinued but will evaluate pain. now stating that he would like to take her home despite prior failed discharge and readmission -Care management: Working on a plan and a hospital bed for home. -CM also considering [facility] As per discussion with Dr. Foster this AM Clonazepam low dose initiated after recommendation following psych consult- Reconsultation with psychiatry if no improvement at 48 hours. -Clonazepam 0.5 mg twice daily initiated last night with increased somnolence this AM- -Dose decreased to 0.25 mg PO BID -Recommendation for weaning in approximately 1 month -Dehydration: As per BUN/Cr - seems to be lower when the patient performs better with ambulation and PT; ratio increased 2 days prior and not improving despite holding lasix -Orthostatic VS pending -Will initiate slow IVF as oral intake seems to have failed and re-evaluate in AM, no Hx of HFrEF - Abnormal urinalysis: Urinalysis trace leukocyte esterase – Urine Cx negative for infection and no dysuria (4) –No antibiotics -Intertriginous candidiasis: Ongoing nystatin powder and skin care. - Non-insulin dependent type 2 diabetes mellitus: Ongoing POCT glucose measurements AC and HS with resistant SSI coverage prior to meals as per bilingual executive assistant/ sample weaver recommendations Will resume outpatient medical therapy at discharge - will hold oral antihyperglycemic agents at this time -(HFpEF) heart failure with preserved ejection fraction: No exacerbation will continue outpatient medical therapy. LVEF 60-65% on 03/01/25 Will continue home dose lasix and adjust PRN - diuretics and SGLT2 inhibitors are recommended in HFpEF Skin care of chronic changes in lower extremities. -HTN (hypertension): Continue home medical therapy with furosemide Without history of HFrEF, metoprolol succinate mostly used in the setting of atrial fibrillation for rate control d/t beta-1 selective blocking properties but still can have effect a lesser effect on blood pressure control -Atrial fibrillation: As above Not on anticoagulation therapy, reportedly refused in 2022 Now the patient might not be a candidate for long-term anticoagulation with risk of falling Consider rediscussing if discharged to SNF as per HASBLED and CHADVASC2 scores -Depression: Stable and no acute exacerbation, ongoing home dose citalopram -CKD (chronic kidney disease): At baseline , no NICOLE on CKD (12). 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 Foster history of repeated admissions for failure to thrive and seems linked to inabil ity to walk safely at home, perform independent ADL activity and self-care PT eval today : She required 6–7 attempts and assistance of two to initiate [id number] from the recliner, with increased time needed. She continues to demonstrate significant retropulsion in sitting, during transitions, and in standing. She was able to maintain upright standing with a front-wheeled walker with maximal assist of one to allow for dressing changes. Tactile support to the back helped maintain stance, though removal of support was not possible due to safety needs. During episodes of fear and anxiety, Arlene becomes unable to follow instructions and can be resistive, increasing risk for injury to herself and staff. Recommendation: Continue skilled PT daily to address strength, balance, trans fers, and gait. Discharge to SNF is recommended unless home caregiver can safely manage current assist level. rehab referrals placed by care management (2) Ambulatory dysfunction: Status: Chronic (3) Dehydration: Status: Acute (4) Anxiety: Status: Acute (5) Abnormal urinalysis: Status: Acute (6) Intertriginous candidiasis: Status: Acute (7) Non-insulin dependent type 2 diabetes mellitus: Status: Chronic (8) (HFpEF) heart failure with preserved ejection fraction: Status: Acute (9) Atrial fibrillation: Status: Chronic (10) Depression: Status: Chronic (11) CKD (chronic kidney disease): Status: Chronic (12) Hypothyroidism (acquired): Status: Chronic (13) Obesity (BMI 30.0-34.9): Status: Acute (14) On deep vein thrombosis (DVT) prophylaxis: Status: Acute Subjective Subjective Patient reports: no new complaints, feels better, tolerating liquids well, tolerating a regular diet, flatus and bowel movement; denies voiding w/o difficulty, diarrhea, blood in stool, nausea, vomiting, shortness of breath or fever Exam Narrative Exam Narrative: Fatigued appearing 79 year old female patient looking older than state age , A& O self. in person, time, an situation , no focal weakness, heart regular rhythm, + murmur , lungs good auscultation bilaterally, abdomen large non- distended soft, nontender, moves all 4 extremities Objective Last Vital Signs Temp 36.7 C 08/23/25 07:35 Pulse 75 08/23/25 07:35 Resp 17 08/23/25 07:35 BP 137/57 L 08/23/25 07:35 Pulse Ox 98 08/23/25 07:35 Time Spent with Patient Time Spent with Patient: >50 minutes Time was spent: preparing to see the patient(eg.review tests), obtaining and/or reviewing separately otained hiistory, ordering medications,tests, procedures, referring, communicating with other health skin care therapist, indepentently interpreting results, counseling the patient, care coordination and other
--- NOTE | 2025-08-23 12:45 | W.PALLCONSUL ---
Date of service: 08/23/25 Time of Service: 12:47 History of Present Illness Narrative: Arlene was seen [facility] All Active Problems (Updated 08/23/25 @ 12:59 by Renetta Cheung APRN) Dehydration (Acute) On deep vein thrombosis (DVT) prophylaxis (Acute) Atrial fibrillation (Chronic) Anxiety (Acute) (HFpEF) heart failure with preserved ejection fraction (Acute) Abnormal urinalysis (Acute) Obesity (BMI 30.0-34.9) (Acute) Intertriginous candidiasis (Acute) CKD (chronic kidney disease) (Chronic) Depression (Chronic) CHF (congestive heart failure) (Chronic) related to Hg 5.7. Resolved. 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) Failure to thrive in adult (Acute) Debility (Acute) Hypotension (Acute) NICOLE (acute kidney injury) (Acute) Hypothyroidism (acquired) (Chronic) Hypomagnesemia (Acute) Ambulatory dysfunction (Chronic) Acute UTI (Acute) General weakness (Acute) Hx of falling (Acute) Medical History Acute pain of right hip Acute UTI Osteopenia Glaucoma Trochanteric bursitis Atrial fibrillation with RVR Related hg 5.7, isolated Anemia Atrial fibrillation Leucocytosis Acute CHF DVT prophylaxis Abnormal finding on breast imaging Goiter Pleural effusion Acute dyspnea Squamous cell cancer of scalp and skin of neck Breast cancer Hypercholesterolemia HTN (hypertension) Diabetes mellitus Surgical History History of thoracentesis (~03/2025) S/P skin and subcutaneous tissue surgery S/P breast lumpectomy Social History Smoking/Tobacco Use Status: Never Smoking risk assessment performed?: Yes Alcohol Intake: never Drug use: Never Substance use type: does not use Housing: house Do you feel safe at home: Yes Do you feel safe in your relationship?: Yes Results Last Vital Signs Temp 36.7 C 08/23/25 07:35 Pulse 75 08/23/25 07:35 Resp 17 08/23/25 07:35 BP 137/57 L 08/23/25 07:35 Pulse Ox 98 08/23/25 07:35 Labs 08/14/25 06:10 08/14/25 06:10
[2025-08-23 13:23] LABS: Lab Add On Test DONE
[2025-08-23 14:09] LABS: Magnesium 1.9 mg/dL (1.8-2.4)
[2025-08-23] MEDS: Lactated Ringers 1,000 ML 100 ML IV (14:39)
[2025-08-23 14:48] VITALS: BP 137/59; BP 160/76; PULSE 82; PULSE 90
[2025-08-23 19:49] VITALS: BP 145/57; PULSE 83; RESP 17; TEMP 36.2; O2SAT 97
[2025-08-23] MEDS: Simvastatin 20 MG TAB PO (19:50)
[2025-08-23] MEDS: Mirtazapine 15 MG TAB 30 MG PO (19:51)
[2025-08-23] MEDS: clonazePAM 0.5 MG TAB 0.25 MG PO (19:51)
[2025-08-23] MEDS: Normal Saline Flush 10 ML SYR IVP (19:56)
[2025-08-24] MEDS: Lactated Ringers 1,000 ML 100 ML IV ×3 (00:56→22:15)
[2025-08-24] MEDS: Levothyroxine 88 MCG TAB PO (05:32)
[2025-08-24 06:08] LABS: Abs Immature Grans 0.05 10^3/uL (0.0-0.06); HCT 29.5 % (36.0-46.0); HGB 9.3 g/dL (11.2-15.7); Immature Grans % 0.7 %; MCH 30.9 pg (27.0-33.0); MCHC 31.5 % (32.0-36.0); MCV 98 fL (80-95); MPV 10.3 fL (8.0-11.0); Platelet Count 139 10^3/uL (130-400); RBC 3.01 10^6/uL (3.93-5.22); RDW 15.8 % (11.7-14.6); RDW-SD 57.4 fL; WBC 7.45 10^3/uL (4.4-10.8)
[2025-08-24 06:17] LABS: Anion Gap 8.0 mmol/L (3-11); BUN 42 mg/dL (7-18); CO2 25.0 mmol/L (21.0-32.0); Calcium 8.9 mg/dL (8.5-10.1); Chloride 109 mmol/L (98-107); Glucose 169 mg/dL (74-106); Magnesium 1.7 mg/dL (1.8-2.4); Potassium 4.2 mmol/L (3.5-5.1); Sodium 142 mmol/L (136-145)
[2025-08-24 07:43] VITALS: BP 128/54; PULSE 71; RESP 16; TEMP 36.1; O2SAT 98
[2025-08-24] MEDS: Insulin Aspart 300 UNITS/3 ML PEN SC ×4 (07:57→21:15)
[2025-08-24] MEDS: clonazePAM 0.5 MG TAB 0.25 MG PO ×2 (07:58→20:09)
[2025-08-24] MEDS: Citalopram 20 MG TAB PO (07:58)
[2025-08-24] MEDS: Normal Saline Flush 10 ML SYR IVP ×2 (07:59→20:10)
[2025-08-24] MEDS: Metoprolol CR 100 MG TABCR PO ×2 (07:59→20:10)
[2025-08-24] MEDS: Pantoprazole 40 MG TABCR PO (07:59)
[2025-08-24] MEDS: Ferrous Gluconate 324 MG TAB PO (07:59)
[2025-08-24] MEDS: Enoxaparin 30 MG/0.3 ML SYR SC (07:59)
[2025-08-24] MEDS: Magnesium Oxide 400 MG TAB PO (11:54)
--- NOTE | 2025-08-24 13:11 | PGE_ITS ---
Date of Service Date of service: 08/24/25 Time of Service: 13:11 Assessment and Plan Assessment and plan (1) Failure to thrive in adult: Start date: 08/24/25 Start time: 13:29 Status: Acute Assessment and plan: -Failure to thrive in adult: Repeated admissions for failure to thrive and ambulatory dysfunction : after electing to go home VS SNF. the patient seems to have an inability to walk safely at home, perform independent ADL activity and self-care. Functional status seemed to have regressed shortly s/p discharge as patient was able to transfer form bed to chair and seems to correlate to increased BUN levels. Ongoing PT eval: Still required multiple attempts and assistance of two to initiate [id number] from the recliner as off 08/23 and awaiting PT session today, patient was demonstrating ongoing significant retropulsion in sitting, during transitions, and in standing but able to stand with a front-wheeled walker with one assist for dressing changes. Tactile support was also necessary for stance maintenance and safety. During instances of increased anxiety, the patient is not receptive to instructions and demonstrates resistance to tactile guidance with increasing risk for injury to herself and staff. Continue recommendations for: At least daily skilled PT to address strength, balance, transfers, and gait. Discussed with patiet and discharge to SNF is still recommended as established at the beginning of this admission unless home caregiver can safely manage current assist level, otherwise the patient will most likely be readmitted after an unsafe discharge . Care management had placed referral early in the stay: No bed offers at this time -Ambulatory dysfunction: as above -Anxiety: Most likely the driving factor in her ability to ambulate secondary to crippling fear of falling Gabapentin discontinued no c/o pain. Has per previous notes was stating that he would like to take her home despite prior failed discharge and readmission -Care management: Was working on a plan and a hospital bed for home. -CM also seeking [facility] stay while adjusting medicines As per discussion with Dr. Foster this AM Clonazepam low dose initiated after recommendation following psych consult- Reconsultation with psychiatry if no improvement at 48 hours. -Clonazepam 0.5 mg twice daily initiated on 08/22 HS w increased somnolence on 08/23 AM- -Dose decreased to 0.25 mg PO BID as of 08/23 - seems less somnolent and more interactive, will have a better idea of effectiveness once PT sees her today -Recommendation for weaning in approximately 1 month -Dehydration: As per BUN/Cr - seems to be lower when the patient performs better with ambulation and PT; ratio increased 2 days prior and not improving despite holding lasix -Orthostatic VS were negative but no HR documented with BPs -Slow IVF ongoing as oral intake seems to have failed previously; no Hx of HFrEF- stopping later today - Abnormal urinalysis: Initial UA -trace leukocyte esterase – Urine Cx negative for infection and no dysuria (4) –No antibiotics -Intertriginous candidiasis: Continue nystatin powder and skin care. - Non-insulin dependent type 2 diabetes mellitus: Ongoing POCT glucose measurements AC and HS with resistant SSI coverage prior to meals as per diamond setter/ grease press helper recommendations -Educated re: caramel candies high sugar content and rapid sugar effect on blood sugar - BG s/p eating deli sandwich 08/22 > 400 Will resume outpatient medical therapy at discharge - will continue hold oral antihyperglycemic agents at this time -(HFpEF) heart failure with preserved ejection fraction: No exacerbation will continue outpatient medical therapy. LVEF 60-65% on 03/01/25 Will continue home dose lasix and adjust PRN - diuretics and SGLT2 inhibitors are recommended in HFpEF Skin care of chronic changes in lower extremities. -HTN (hypertension): Continue home medical therapy with furosemide Without history of HFrEF, metoprolol succinate mostly used in the setting of atrial fibrillation for rate control d/t beta-1 selective blocking properties but still can have effect a lesser effect on blood pressure control -Atrial fibrillation: As above Not on anticoagulation therapy, reportedly refused in 2022 Now the patient might not be a candidate for long-term anticoagulation with risk of falling Consider re-discussing if discharged to SNF as per HASBLED and CHADVASC2 scores -Depression: Stable and no acute exacerbation, ongoing home dose citalopram -CKD (chronic kidney disease): At baseline , no NICOLE on CKD BMP in AM -Hypothyroidism (acquired): TSH is elevated > 6 with normal T4- most likely reflecting impaired compliance Continue outpatient medical therapy resumed on admission- and outpatient management on discharge -Obesity (BMI 30.0-34.9): counselling Ongoing discussion re: the possibility of GLP-1 w weekly SC injection and f/u discussion with outpatient provider Nutrition consultation completed – PRN f/u- could benefit form more diabetic education -Breast cancer: Hx of lumpectomy on the right breast with radiation therapy 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 Foster (2) Ambulatory dysfunction: Status: Chronic (3) Dehydration: Status: Acute (4) Anxiety: Status: Acute (5) Abnormal urinalysis: Status: Acute (6) Intertriginous candidiasis: Status: Acute (7) Non-insulin dependent type 2 diabetes mellitus: Status: Chronic (8) (HFpEF) heart failure with preserved ejection fraction: Status: Acute (9) Atrial fibrillation: Status: Chronic (10) Depression: Status: Chronic (11) CKD (chronic kidney disease): Status: Chronic (12) Hypothyroidism (acquired): Status: Chronic (13) Obesity (BMI 30.0-34.9): Status: Acute (14) On deep vein thrombosis (DVT) prophylaxis: Status: Acute Subjective Subjective Patient reports: no new complaints (Wants to go home but appears receptive to other options when discharge safety education provide), tolerating liquids well, tolerating a regular diet, flatus and bowel movement; denies voiding w/o difficulty, diarrhea, blood in stool, nausea, vomiting, shortness of breath or fever Exam Narrative Exam Narrative: Fatigued appearing 79 year old female patient looking older than state age , A& O self. in person, time, an situation, memory impairement but recalls info when reoriented , no focal weakness, heart regular rhythm, + murmur , lungs good auscultation bilaterally, abdomen large non-distended soft, nontender, moves all 4 extremities Objective Last Vital Signs Temp 36.1 C L 08/24/25 07:43 Pulse 71 08/24/25 07:43 Resp 16 08/24/25 07:43 BP 128/54 L 08/24/25 07:43 Pulse Ox 98 08/24/25 07:43 Laboratory Results - last 24 hr 08/23/25 08/23/25 08/24/25 13:21 13:43 05:42 WBC 7.45 RBC 3.01 L Hgb 9.3 L Hct 29.5 L MCV 98 H MCH 30.9 MCHC 31.5 L RDW 15.8 H Plt Count 139 MPV 10.3 Immature Gran % 0.7 Neutrophils % 65.9 Lymphocytes % 18.5 Monocytes % 5.9 Eosinophils % 8.5 Basophils % 0.5 Nucleated RBC % 0.0 Absolute Neutrophils 4.91 Absolute Lymphocytes 1.38 Absolute Monocytes 0.44 Absolute Eosinophils 0.63 Absolute Basophils 0.04 Sodium 142 Potassium 4.2 Chloride 109 H Carbon Dioxide 25.0 Anion Gap 8.0 BUN 42 H Creatinine 1.7 H Est GFR (CKD-EPI 2020) 29.94 Glucose 169 H Calcium 8.9 Magnesium 1.9 1.7 L Add-On Test Request DONE Time Spent with Patient Time Spent with Patient: >50 minutes Time was spent: preparing to see the patient(eg.review tests), obtaining and/or reviewing separately otained hiistory, ordering medications,tests, procedures, referring, communicating with other health home visit field care manager, indepentently interpreting results, counseling the patient, care coordination and other
--- NOTE | 2025-08-24 15:05 | PT.INTREAT ---
PT Notes Visit Reasons: Failure to Thrive, Ambulatory Dysfunction, NIDDM Physical therapy Inpatient Treatment Note [facility] Date: 08/24/2025 PRECAUTIONS: High fall risk due rapid fluctuating levels of anxiety during mobility performance. Standard precautions in place. SUBJECTIVE: Patient in good spirits. Sister Eileen and Eileen's were visiting when PT came in. [place] had not shown yet as expected but patient was agreeable to doing session with PT. [place] arrived an hour after patient was seen and verbalized good knowledge with use of gait belt. OBJECTIVE: General observation: Seated on bedside chair. 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 Sister and [id number] present in room throughout session. PAIN: None reported VITALS: Closely monitored by nursing staff BED MOBILITY/TRANSFERS: Minimal to maximal cueing cueing provided for use of B hands as needed for support, movement sequence, AD management, and posture to reduce fall risk and minimize pain report Sit to stand from bedside recliner: stand by assist with minimal cues provided for hand placement onto B arm rests x 1 trial Stand to sit onto wheelchair after walking 70 feet: contact guard assist with definite use of hands for a controlled descent Sit to stand from wheelchair after resting about 2 minutes: stand by assist with minimal cues provided for hand placement onto B arm rests x 2 trials Wheelchair to bedside commode transfer: contact guard assist using FWW Bedside commode to bedside recliner: conatct guard assist of PT and PROJECT MGR Nalini AMBULATION: 70 feet (measuring wheel device used) from room to outside of room 210, stand by assist by PT, used FWW, wheelchair follow of Nurse Rubi 70 feet to walk back to room as patient needed to have a bowel movement, stand by assist by PT, used FWW, wheelchair follow of Nurse Rubi Minimal cues only for increased step height and length as patient's steps were hesitant at first; cueing to ensure that walker does not go too far forward; simple commnds given for effective environmental scanning. PT needed to assist with walker maneuvering during directional changes for safety No anxiety observed, focus on task evident ASSESSMENT: Managing patient's level of anxiety hugely impacted mobility performance positively. Patient responded well to calm approach and to consistent encouragement. Fatigue is a precursor to anxiety, adequate rests as well as effective redirection in between tasks were needed. When patient was placed on the bedside commode after walking a total of 140 feet, she had a hard time getting up and was becoming emotional. Redirection by PT was done and attempt was successful. Patient's emotional outburst was averted and she was able to stand up after 5 trials to transfer back to bedside recliner with assistance of CHARIS Gayle. Continued services are needed to foster mastery of mobility task performance, increased strength to B UE/LE, and improve balance awareness that will decrease fall risk. PLAN: 1-2x/day, 7 days/week x 1 week to improve consistency of safe mobility ADL performance Plan of care has been reviewed with the REGISTER OF DEEDS providing the service under Physical Therapy direction. Initiate Physical Therapy intervention for strengthening, bed mobility, transfers, gait, stairs, balance training, use of assistive device. DISCHARGE RECOMMENDATION: SNF TREATMENT CODE/TIME: 94136 x 44 minutes for 3 units (15:05–15:49).
[2025-08-24] MEDS: Nystatin POWDER 60 GM JAR TP ×2 (15:11→20:09)
[2025-08-24 19:39] VITALS: BP 165/77; PULSE 81; RESP 16; TEMP 36.5; O2SAT 96
[2025-08-24] MEDS: Mirtazapine 15 MG TAB 30 MG PO (20:09)
[2025-08-24] MEDS: Simvastatin 20 MG TAB PO (20:10)
[2025-08-24 23:00] VITALS: BP 144/73; PULSE 89; RESP 16; TEMP 36; O2SAT 98
[2025-08-25 03:33] VITALS: BP 161/68; PULSE 78; RESP 16; TEMP 36.2; O2SAT 95
[2025-08-25] MEDS: Levothyroxine 88 MCG TAB PO (06:00)
[2025-08-25 07:45] VITALS: BP 146/67; PULSE 75; RESP 16; TEMP 36.4; O2SAT 98
[2025-08-25] MEDS: Normal Saline Flush 10 ML SYR IVP ×2 (08:34→22:31)
[2025-08-25] MEDS: Insulin Aspart 300 UNITS/3 ML PEN SC ×4 (08:34→22:31)
[2025-08-25] MEDS: Nystatin POWDER 60 GM JAR TP ×2 (08:34→22:31)
[2025-08-25] MEDS: clonazePAM 0.5 MG TAB 0.25 MG PO ×2 (08:34→22:30)
[2025-08-25] MEDS: Citalopram 20 MG TAB PO (08:35)
[2025-08-25] MEDS: Metoprolol CR 100 MG TABCR PO ×2 (08:35→22:29)
[2025-08-25] MEDS: Enoxaparin 30 MG/0.3 ML SYR SC (08:35)
[2025-08-25] MEDS: Ferrous Gluconate 324 MG TAB PO (08:35)
[2025-08-25] MEDS: Lactated Ringers 1,000 ML 100 ML IV (08:35)
[2025-08-25] MEDS: Pantoprazole 40 MG TABCR PO (08:36)
--- NOTE | 2025-08-25 12:37 | W.PM.PROGNOT ---
Date of Service Date of service: 08/25/25 Time of Service: 12:38 Assessment and Plan Assessment and plan (1) Failure to thrive in adult: Status: Acute Assessment and plan: Secondary to crippling anxiety Continue physical therapy Continue medication adjustments (2) Anxiety: Status: Acute Assessment and plan: Continue adjusting medication to help alleviate symptoms (3) Ambulatory dysfunction: Status: Chronic Assessment and plan: Secondary to anxiety from fear of falling Fall precautions (4) Non-insulin dependent type 2 diabetes mellitus: Status: Chronic Assessment and plan: Diabetic diet blood sugar checks with sliding scale ac/hs last A1C was 5.9 Resume outpatient medical therapy at discharge - continue to hold at this time (5) (HFpEF) heart failure with preserved ejection fraction: Status: Acute Assessment and plan: echo from 02/2025 Conclusion Normal left ventricular wall thickness and chamber size. Ejection fraction is 60 to 65%. Wall motion is normal Normal right ventricular size and function Mildly dilated left atrium. Normal right atrial size Aortic valve is sclerotic and probably trileaflet. There is no aortic stenosis or regurgitation Mitral annular calcification. Mild mitral regurgitation Estimated right ventricular systolic pressure is 22 mmHg on daily lasix appears euvolemic (6) Atrial fibrillation: Status: Chronic (7) Depression: Status: Chronic (8) CKD (chronic kidney disease): Status: Chronic Assessment and plan: at baseline avoid nephrotoxic drugs, renal dosing as needed. (9) Hypothyroidism (acquired): Status: Chronic Assessment and plan: continue levothyroxine last TSH 6.05 recheck in 4-6 weeks, (10) Obesity (BMI 30.0-34.9): Status: Acute Assessment and plan: nutritional consultation outpatient with pcp (11) On deep vein thrombosis (DVT) prophylaxis: Status: Acute Assessment and plan: enoxaparin daily discussed with DR Dent Subjective Subjective Patient reports: no new complaints, tolerating liquids well, tolerating a regular diet and afebrile Exam Const General: cooperative, comfortable, no acute distress and frail appearing Nutritional Appearance: obese Orientation: alert, awake and oriented x3 HENMT Mouth: moist mucous membranes abnormal (slightly dry) Resp Effort & Inspection: normal respiratory effort Cardio Rate: regular rate Rhythm: regular rhythm GI Inspection: normal to inspection Palpation: soft Skin General skin exam: other (Mepilex intact to the top of her head no surrounding erythema) Neuro General: patient alert, patient awake and patient oriented x3 Extrem General: normal to inspection, full ROM and edema (lower) Laterality: bilateral Psych Mental Status: mental status grossly normal Speech and Movement: speech and movement normal Objective Last Vital Signs Temp 36.4 C L 08/25/25 07:45 Pulse 75 08/25/25 07:45 Resp 16 08/25/25 07:45 BP 146/67 H 08/25/25 07:45 Pulse Ox 98 08/25/25 07:45 Time Spent with Patient Time Spent with Patient: 35-49 minutes Time was spent: preparing to see the patient(eg.review tests), obtaining and/or reviewing separately otained hiistory, ordering medications,tests, procedures, indepentently interpreting results and counseling the patient
--- NOTE | 2025-08-25 12:50 | PTTR_ITS ---
PT Notes Visit Reasons: Failure to Thrive, Ambulatory Dysfunction, NIDDM Physical therapy Inpatient Treatment Note [facility] Date: 08/25/2025 PRECAUTIONS: High fall risk due rapid fluctuating levels of anxiety during mobility performance. Standard precautions in place. SUBJECTIVE: Arlene was not available for PT the whole morning as she was somnolent. Was able to eat lunch in bed, assisted. PT was requested by CHARIS Sterling to help out with assisting patient from edege of bed to bedside commode. Arlene was teary-eyed and did not know what to do when PT came in. LNAs Redi and Hallie attempting to facilitate a bed to commode transfer. LNAs were asked to give patient time and was informed by PT that PT will just ring for help when patient is pacified and ready. OBJECTIVE: General observation: Seated at edge of bed, anxious and teary-eyed,. 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 Quirino waiting outside room. PAIN: None reported VITALS: Closely monitored by nursing staff BED MOBILITY/TRANSFERS: Sit to stand from edge of bed: Unable and confused despite slow and calm instruction given for hand placement. Attempted to stand up about 3 times before patient was asked to rest and think about what she needed to do. Insisted that she does better with pushing onto walker handles instead of edge of bed, however was unable to stand all the way up because of lack of leverage. Patient was given about 5 minutes to rest. Attempt at redirection was done but patient's anxiety took over until finally she just gave up and asked to be put back in bed. AMBULATION: Unable ASSESSMENT: Lisa difference from yesterday's performance, being able to walk 70 feet x 2 with FWW with stand by assist and wheelchair follow (lou seen midafternoon on 08/24, please see note) to today (patient seen right after lunch today) with not being able to stand up even from edge of bed with bed height increased. Patient did better when she was seen in the afternoon with intake of 0.25 mg Clonazepam earlier in the AM. Will continue determine good timing for PT session to optimize functional performance and the least anxiety. PLAN: 1-2x/day, 7 days/week x 1 week to improve consistency of safe mobility ADL performance Plan of care has been reviewed with the WOODWIND INSTRUMENTS INSPECTOR providing the service under Physical Therapy direction. Initiate Physical Therapy intervention for strengthening, bed mobility, transfers, gait, stairs, balance training, use of assistive device. DISCHARGE RECOMMENDATION: SNF TREATMENT CODE/TIME: 15503 x 20 minutes for 1 unit (12:50–13:10).
[2025-08-25 19:28] VITALS: BP 131/57; PULSE 81; RESP 16; TEMP 36.5; O2SAT 98
[2025-08-25] MEDS: Simvastatin 20 MG TAB PO (22:29)
[2025-08-25] MEDS: Acetaminophen 325 MG TAB 650 MG PO (22:30)
[2025-08-25] MEDS: Mirtazapine 15 MG TAB 30 MG PO (22:31)
[2025-08-26] MEDS: Levothyroxine 88 MCG TAB PO (05:30)
[2025-08-26] MEDS: clonazePAM 0.5 MG TAB 0.25 MG PO (08:06)
[2025-08-26] MEDS: Pantoprazole 40 MG TABCR PO (08:07)
[2025-08-26] MEDS: Citalopram 20 MG TAB PO (08:07)
[2025-08-26] MEDS: Ferrous Gluconate 324 MG TAB PO (08:07)
[2025-08-26] MEDS: Enoxaparin 30 MG/0.3 ML SYR SC (08:08)
[2025-08-26] MEDS: Metoprolol CR 100 MG TABCR PO (08:08)
[2025-08-26] MEDS: Insulin Aspart 300 UNITS/3 ML PEN SC ×3 (08:08→17:19)
[2025-08-26] MEDS: Normal Saline Flush 10 ML SYR IVP (08:10)
[2025-08-26] MEDS: Nystatin POWDER 60 GM JAR TP (08:25)
[2025-08-26 08:36] VITALS: BP 137/67; PULSE 82; RESP 16; TEMP 36.1; O2SAT 96
--- NOTE | 2025-08-26 09:34 | PTTR_ITS ---
Date of service: 08/26/25 PT Notes Visit Reasons: Failure to Thrive, Ambulatory Dysfunction, NIDDM Physical therapy Inpatient Treatment Note Date: 08/26/2025 PRECAUTIONS: High fall risk due rapid fluctuating levels of anxiety during mobility performance. Standard precautions in place. SUBJECTIVE: Pt. agreeable to participate, Happy and smiling. of note pt was seen for AM PT session prior to morning meds being administered. Pt requesting to use the commode. OBJECTIVE: General observation: presented semireclined in bed. Dressing to crown of head remains in place PAIN: denied VITALS: monitored by nursing staff BED MOBILITY/TRANSFERS: Minimal to maximal cueing cueing provided for use of B hands as needed for support, movement sequence, AD management, and posture to reduce fall risk and minimize pain report supine with HOB at 30 degrees to sit at left side of bed: mod A of 1 with cues provided for hand placement and sequencing Sit to stand from bed with min A of 1 and 2 attempts with minimal cues to increase anterior weight shift Bed to commode with FWW: min A and continuous cues to turn , turn turn for safe approach to commode Stand to sit on commode and recliner x 3 trials: mod A to control descent to surface and cues to reach back for armrest. Sit to stand from bedside recliner: CG assist with minimal cues provided for hand placement onto B arm rests x 2 trial AMBULATION: amb 15 feet with FWW min A and chair close follow PT needed to assist with walker maneuvering during directional changes for safety ASSESSMENT: Prior to medication administration in AM, pt was able to initiate and perform transfers and short distance ambulation with FWW with assist of 1. Patient continues to responded well to calm approach and to consistent encouragement. Fatigue continues to appear to be a precursor to anxiety, adequate rests as well as effective redirection in between tasks were needed. When approached later in day, Pt weepy in bed anxious, fearful. present and reported she was somnolent when he arrived at 10am then when attempted to use commode with nursing staff she became anxious and has been crying or somnolent since. Skilled PT services are indicated to maximize functional mobility, increase functional activity tolerance, increased strength of BUE/BLE, and improve balance awareness to reduce risk for falls. Per HAIR SPINNING MACHINE OPERATOR Pt will convert to SB1 PLAN: 1-2x/day, 7 days/week x 1 week Plan of care has been reviewed with the SALES REPRESENTATIVE CASH REGISTERS providing the service under Physical Therapy direction. Initiate Physical Therapy intervention for strengthening, bed mobility, transfers, gait,, balance training, use of assistive device. DISCHARGE RECOMMENDATION: SNF TREATMENT CODE/TIME: 1st session:93012/ [id number]. 2nd session: pt unable to participate. Ankita Vidal, PT [facility]
[2025-08-26 11:52] LABS: Anion Gap 8.1 mmol/L (3-11); BUN 33 mg/dL (7-18); CO2 26.9 mmol/L (21.0-32.0); Calcium 8.9 mg/dL (8.5-10.1); Chloride 107 mmol/L (98-107); Glucose 283 mg/dL (74-106); Magnesium 1.7 mg/dL (1.8-2.4); Potassium 4.7 mmol/L (3.5-5.1); Sodium 142 mmol/L (136-145)
== END 2025-08-26 18:07 | disposition swing bed (61) ==
LOC: ER 17:40 → MS 21:21
PROVIDERS: Admitting Provider Family Medicine; Emergency Provider Physician Assistant; PCP Nurse Practitioner Family; Responsible Provider Nurse Practitioner Acute Care; Visit Provider Family Medicine
DX: R62.7 Adult failure to thrive (principal); E86.0 Dehydration; R29.6 Repeated falls; R53.1 Weakness; R53.81 Other malaise; B37.2 Candidiasis of skin and nail; I13.0 Hypertensive heart and chronic kidney disease with heart failure and stage 1 through stage 4 chronic kidney disease, or unspecified chronic kidney disease; I50.32 Chronic diastolic (congestive) heart failure; I48.0 Paroxysmal atrial fibrillation; N18.4 Chronic kidney disease, stage 4 (severe); E11.22 Type 2 diabetes mellitus with diabetic chronic kidney disease; F41.9 Anxiety disorder, unspecified; E03.9 Hypothyroidism, unspecified; R82.90 Unspecified abnormal findings in urine; E66.811 Obesity, class 1; Z68.30 Body mass index [BMI] 30.0-30.9, adult; Z79.899 Other long term (current) drug therapy; Z66 Do not resuscitate; Z73.89 Other problems related to life management difficulty; Z85.3 Personal history of malignant neoplasm of breast; N17.9 Acute kidney failure, unspecified; F32.A Depression, unspecified; E83.42 Hypomagnesemia; D64.9 Anemia, unspecified; E78.00 Pure hypercholesterolemia, unspecified; Z79.84 Long term (current) use of oral hypoglycemic drugs; L98.498 Non-pressure chronic ulcer of skin of other sites with other specified severity; Z91.81 History of falling; I34.0 Nonrheumatic mitral (valve) insufficiency
CPT/HCPCS: 00123; 36415; 80048; 80053; 85027; 97112; 97162; 97530; 99285; 71046; 81003; 81015; 83735; 84439; 84443; 85025; 87086; 99223; 99231; 99232; 99233; G0378; J1650; J1815

== ENCOUNTER 2025-08-26 18:03 | Inpatient (IN) | payer MEDICARE, MEDICAID, SELFPAY ==
--- NOTE | 2025-08-26 14:01 | CMSCP_ITS ---
Date of service: 08/26/25 Time of Service: 14:01 Swingbed Plan of Care Activites/Discharge Plan of care: SWING BED PROGRAM ACTIVITIES/DISCHARGE PLAN OF CARE ACTIVITIES PLAN Date: 08/26/25 Identified Need: Life enrichment activities during a prolonged hospital stay. Intervention/Plan: TV in room, offer activity cart, offer reiki, pet therapy and music therapy when available. CM will continue to follow and support Arlene's life enrichment during this swing bed stay. Initials DL DISCHARGE PLAN Date: 08/26/25 Identified Need: Arlene is working with PT in SWB1 status, CM will support coordination of a discharge plan that is both safe and patient centered. Arlene's Quirino has expressed concerns regarding his ability to take care of her at home; however, he remains committed to working towards a plan that would allow Arlene to return home under his care. Both Quirino and Arlene continue to decline terminal superintendent placement at this time. Intervention/Plan: CM will continue to monitor and support discharge planning efforts to an accepting SNF and continue to explore in home support options, as appropriate. Initials DL
--- NOTE | 2025-08-26 14:01 | CM.SBPSYCH ---
Date of service: 08/26/25 Time of Service: 14:01 SB Psychosocial/Act. [facility] Hospital Admission Admission Date: 08/26/25 Admission From:: Hospital admission/Observation status Diagnosis:: Failure to thrive in adult, Ambulatory dysfunction Swing Bed Admission Swing Bed Admit Date:: 08/26/25 Swing Bed Level of Care: Level 1/SNF Social Supports PREVIOUS FUNCTIONAL STATUS/SOCIAL/FAMILY SUPPORTS:: Arlene lives in [place] with her Quirino. Their only son of cancer at home 3 years ago. Arlene has a sister, Eileen, who resides in [place], and no other family. 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 The primary reason for Arlene's extended hospitalization is due to her ambulatory dysfunction, anxiety and her need for a safe discharge plan (given that her last 2 most recent discharges have resulted in readmissions, at which time her felt he could not care for her at home). Arlene's mobility level is below baseline, as she had been ambulatory with a walker around the house up until approximately a month prior to her initial hospitalization. He reports that she had a similar anxiety spell a few years ago , to which he reports STR was effective. Arlene's progress with mobility waxes and wanes; on the good days, Quirino often reports that he would feel comfortable taking her home. Quirino feels capable of providing the caregiving support required to get her home, if he can with a hospital bed and caregiver supports in place. Arlene is also agreeable to receiving more support at home through her LTM/[employer] high highest needs benefit, which is a change because she historically refused the extra support. Prior to Admission Living Arrangements/Environment Prior to Admission:: Single family home in [place] with Quirino. 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 Advance Directives for Healthcare Advance Directives for Healthcare: Advance Directives Community Community Supports/Involvement: [facility] Finisher Denture Dorinda Patterson, patient has terminal gauger medicaid and [facility] High Highest needs, currently eligible for 22 hours of persona care ev., 2 weeks and 700+ hours of funeral home location manager services per calender year. Has not used services to date. Interests Hobbies:: Formerly enjoyed crocheting and knitting, but not for quite a while. Present Functional Status Physical Abilities:: Extremely limited, see PT notes Cognitive:: WNL Communication:: WNL Sensory Systems: There seems to be a little neglect or visual deficit on the right, per PT Behavior:: Anxiety affects ability to ambulate Medical History PAST MEDICAL HISTORY/PAST SURGICAL HISTORY:: Medical History (Updated 07/12/21 @ 07:55 by Morena Orellana MD) Breast cancer Diabetes mellitus Goiter HTN (hypertension) Hypercholesterolemia Squamous cell cancer of scalp and skin of neck Surgical History (Updated 07/12/21 @ 01:56 by Laci Carrington MD) S/P breast lumpectomy S/P skin and subcutaneous tissue surgery General Health:: See H&P Past Psychiatric Treatment:: N/A Admission Data Reason for Swing Bed Admission:: SNF for STR, prior to returning home with increased community and caregiver supports. Discharge Plan:: Arlene's plan at this time is to discharge home with resumption of [facility] services and New caregiver support through the [facility] program. Quirino is planning to resume the role as primary caregiver. Will need resumption of [facility] RN/PT/OT services Will need a hospital Bed, [facility]. Discharge date will be needed to order the bed. Will need increased caregiver support through home health [facility] vs [facility] (eligible for 22hrs ev. 2 weeks, Alla from the [facility] is currently coordinating services. Will need [facility] W/C van for transportation, and lift assist. Of note: SNF for STR was also recommended, unfortunately no bed offers have been received to date. And both Arlene and Quirino refuse to consider Dormitory Keeper Care placement as a discharge option. Assessment: The primary reason for Arlene's extended hospitalization is due to her ambulatory dysfunction, anxiety and her need for a safe discharge plan (given that her last 2 most recent discharges have resulted in readmissions, at which time her felt he could not care for her at home). STR referrals were sent to [facility] facilities, prior to her transition to SWB1 status. Content Coordinator: Irene Mckenzie RN Date Assessment was completed:: 08/27/25
--- NOTE | 2025-08-26 14:02 | PDOC.CMACT ---
Date of service: 08/26/25 Time of Service: 14:02
--- NOTE | 2025-08-26 18:05 | W.PM.HP.N ---
Date of service: 08/26/25 Time of Service: 18:05 Assessment and Plan Assessment and plan (1) Failure to thrive in adult: Start date: 08/26/25 Start time: 18:14 Status: Acute Assessment and plan: -Failure? to thrive in adult: Repeated admissions for failure to thrive and ambulatory dysfunction : after electing to go home VS SNF. seems to have an inability to walk safely at home, perform independent ADL activity and self-care. Functional status seemed to have regressed shortly s/p discharge as patient was able to transfer form bed to chair and seems to correlate to increased BUN levels. Continue PT Still required assistance but improving Continue recommendations for: At least daily skilled PT? to address strength, balance, transfers, and gait. Discussed with patient and spouse and discharge to SNF is still ?recommended - will Change to [facility] Care management had placed referral early in the stay:?No bed offers at this time -Ambulatory dysfunction: as above -Anxiety: Most likely the driving factor in her? ability to ambulate secondary to crippling fear of falling Gabapentin discontinued no c/o pain, failed clonazepam low dose - long half life and ongoing somnolence depsite minimal dosing Attempting daily clonidine low dose, this might be central with medical history and presentation, increased BP with standing up . Psychiatry consult if no improvement at 48 hours. Has per previous notes was stating that he would like to take her home despite prior failed discharge and readmission -Care management: Was working on a plan and a hospital bed for home and accommodation the event we could not get a SNF offer . ? -CM : [facility] stay while adjusting medicines- no offer -Dehydration: Fluid resucitation completed - resume furosemide - Abnormal urinalysis: no UTI as per urine Cx ?-Intertriginous candidiasis: Continue nystatin powder and skin care. - Non-insulin dependent type 2 diabetes mellitus: Ongoing POCT glucose measurements AC and HS with resistant SSI coverage prior to meals as per community educator/ security strategist recommendations Will resume outpatient medical therapy at discharge? - will continue hold oral antihyperglycemic agents at this time -(HFpEF) heart failure with preserved ejection fraction: No exacerbation will continue outpatient medical therapy. LVEF 60-65% on 03/01/25 Will continue home dose lasix and SGLT2 inhibitors are recommended in HFpEF Skin care of chronic changes in lower extremities. -HTN (hypertension): Continue home medical therapy with furosemide Without history of HFrEF, metoprolol succinate mostly used in the setting of atrial fibrillation ?for rate control d/t beta-1 selective blocking properties but still can have effect a lesser effect on blood pressure control -Atrial fibrillation: As above Not on ?anticoagulation therapy, reportedly refused ?in 2022 Now the patient might not be a candidate for long-term anticoagulation with risk of falling Consider re-discussing if ?discharged to SNF as per HASBLED and CHADVASC2 scores -Depression: Stable and no acute exacerbation, ongoing home dose citalopram -CKD (chronic kidney disease): At baseline , no NICOLE on CKD -Hypothyroidism (acquired): TSH is elevated > 6 with normal T4- most likely reflecting impaired compliance Continue outpatient medical therapy resumed on admission- ?and outpatient management on discharge ?-Obesity (BMI 30.0-34.9): counselling Ongoing discussion re: the possibility of GLP-1 w weekly SC injection and f/u discussion with outpatient provider Nutrition consultation completed ? 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 which appears stable though there are some chronic ulcers ?to scalp Dressing change Q 24 hours with Mepilex to scalp -Non-healing Scalp ulcer As above Wound consult Discussed with (2) Ambulatory dysfunction: Status: Chronic (3) Dehydration: Status: Acute (4) Anxiety: Status: Acute (5) Abnormal urinalysis: Status: Acute (6) Intertriginous candidiasis: Status: Acute (7) Non-insulin dependent type 2 diabetes mellitus: Status: Chronic (8) (HFpEF) heart failure with preserved ejection fraction: Status: Acute (9) Atrial fibrillation: Status: Chronic (10) Depression: Status: Chronic (11) CKD (chronic kidney disease): Status: Chronic (12) Hypothyroidism (acquired): Status: Chronic (13) Obesity (BMI 30.0-34.9): Status: Acute (14) Non-healing ulcer: Status: Acute History of Present Illness History of Present Illness Chief Complaint: Ambulatory dysfunction Narrative: 79-year-old female with a past medical history of [id number] type 2 diabetes, HFpEF, A-fib refused anticoagulation, hypertension,history of breast cancer with stable metastases, hypothyroidism and frequent UTIs and repeated hospitalizations for ambulatory dysfunction and failure to thrive who presented on 08/13/25 to the emergency department with complaints of ambulatory dysfunction 2 days s/p discharge home on gabapentin for anxiety that was preventing ambulation d/t increased fear of falling. At the time the patient and her spouse had elected to go home. Work-up was negative for any acute findings except for a slight increased in BUN for which Lasix was held, and elevated TSH suspicious for non-compliance or default form home regimen of levothyroxine . The patient was admitted to the medical surgical floor for failure to thrive and ambulatory dysfunction. The patient failed to progress to improve her mobility while working with physical therapy and improved hydration despite gabapentin which was discontinued. The patient could also not tolerate low dose clonazepam recommended. The patient will be started on low dose daily clonidine and monitored as the will be transferred to [facility] Bed I level of care with ongoing physical therapy and wound care for a non-healing chronic scalp ulcer s/p radiation therapy. She is a DNR/DNI, and her mental status remains intact at baseline with some memory impairment. No reported headache, dizziness, fever, chills, cough, chest pain, abdominal discomfort, gastrointestinal or genitourinary symptoms Patient reported fatigue, not remembering what town she is in or where she lives and ongoing difficulty ambulating Discussed with Dr. Dent Review of Systems All systems reviewed & are unremarkable except as noted in HPI and below PFSH All Active Problems (Updated 08/26/25 @ 18:26 by Renetta Cheung APRN) Non-healing ulcer (Acute) Dehydration (Acute) On deep vein thrombosis (DVT) prophylaxis (Acute) Atrial fibrillation (Chronic) Anxiety (Acute) (HFpEF) heart failure with preserved ejection fraction (Acute) Abnormal urinalysis (Acute) Obesity (BMI 30.0-34.9) (Acute) Intertriginous candidiasis (Acute) CKD (chronic kidney disease) (Chronic) Depression (Chronic) CHF (congestive heart failure) (Chronic) related to Hg 5.7. Resolved. 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) Failure to thrive in adult (Acute) Debility (Acute) Hypotension (Acute) NICOLE (acute kidney injury) (Acute) Hypothyroidism (acquired) (Chronic) Hypomagnesemia (Acute) Ambulatory dysfunction (Chronic) Acute UTI (Acute) General weakness (Acute) Hx of falling (Acute) Medical History Acute pain of right hip Acute UTI Osteopenia Glaucoma Trochanteric bursitis Atrial fibrillation with RVR Related hg 5.7, isolated Anemia Atrial fibrillation Leucocytosis Acute CHF DVT prophylaxis Abnormal finding on breast imaging Goiter Pleural effusion Acute dyspnea Squamous cell cancer of scalp and skin of neck Breast cancer Hypercholesterolemia HTN (hypertension) Diabetes mellitus Surgical History History of thoracentesis (~03/2025) S/P skin and subcutaneous tissue surgery S/P breast lumpectomy Social History Smoking/Tobacco Use Status: Never Smoking risk assessment performed?: Yes Alcohol Intake: never Drug use: Never Substance use type: does not use Housing: house Do you feel safe at home: Yes Do you feel safe in your relationship?: Yes Meds Allergies and Home Medications Allergies Allergy/AdvReac Type Severity Reaction Status Date / Time doxazosin (From Cardura) Allergy Intermediate Unknown Verified 08/01/25 17:14 sitagliptin (From Januvia) Allergy Intermediate Unknown Verified 08/01/25 17:14 famotidine Allergy Unknown Other (See Verified 08/01/25 17:14 Comment) empagliflozin (From Allergy Unknown Verified 08/01/25 17:14 Jardiance) Home Medications ?Medication ?Instructions ?Recorded ?Confirmed ?Type glipizide 10 mg tablet 10 mg PO BID 07/12/21 08/13/25 History metoprolol succinate 100 mg 100 mg PO BID #0 tabs 05/08/22 08/13/25 Rx tablet,extended release 24 hr citalopram 20 mg tablet 20 mg PO DAILY 12/30/22 08/13/25 History simvastatin 20 mg tablet 20 mg PO HS 12/30/22 08/13/25 History acetaminophen 325 mg tablet 650 mg (2 x 325 mg) PO Q6H PRN PRN 06/20/23 08/13/25 Rx #30 tabs ferrous gluconate 324 mg (38 mg 324 mg PO DAILY #60 tabs 07/12/23 08/13/25 Rx iron) tablet furosemide 20 mg tablet 20 mg PO DAILY #60 tabs 07/12/23 08/13/25 Rx mirtazapine 30 mg tablet 30 mg PO HS 08/01/25 08/13/25 History levothyroxine 88 mcg tablet 88 mcg PO DAILY 08/02/25 08/13/25 History metformin 500 mg tablet 1,000 mg PO BID 08/02/25 08/13/25 History Exam Narrative Exam Narrative: Fatigued appearing 79 year old female patient looking older than state age , A& O self. in person, time, an situation, memory impairement but recalls info when reoriented , no focal weakness, heart regular rhythm, + murmur , clear lungs to auscultation bilaterally, abdomen large non-distended soft, nontender, moves all 4 extremities Time Spent Time spent with Patient: >75 minutes Time was spent: preparing to see the patient(eg.review tests), obtaining and/or reviewing separately otained hiistory, ordering medications,tests, procedures, referring, communicating with other health palliative care nurse, indepentently interpreting results, counseling the patient, care coordination and other
[2025-08-26 19:49] VITALS: BP 141/61; BP 159/83; BP 166/09; PULSE 74; PULSE 83; PULSE 93; RESP 18; TEMP 36.6; O2SAT 97
[2025-08-26 19:50] VITALS: BP 145/81; PULSE 83; RESP 17; TEMP 36.5; O2SAT 95
[2025-08-26] MEDS: Metoprolol CR 100 MG TABCR PO (20:01)
[2025-08-26] MEDS: Mirtazapine 15 MG TAB 30 MG PO (20:01)
[2025-08-26] MEDS: Simvastatin 20 MG TAB PO (20:01)
[2025-08-26] MEDS: Normal Saline Flush 10 ML SYR IVP ×2 (20:02→20:03)
[2025-08-26] MEDS: Nystatin POWDER 60 GM JAR TP (20:02)
[2025-08-26] MEDS: Insulin Aspart 300 UNITS/3 ML PEN SC (21:21)
[2025-08-27] MEDS: Levothyroxine 88 MCG TAB PO (05:25)
[2025-08-27 07:24] VITALS: BP 117/52; PULSE 100; RESP 16; TEMP 36.1; O2SAT 94
[2025-08-27] MEDS: Insulin Aspart 300 UNITS/3 ML PEN SC ×4 (09:27→21:43)
[2025-08-27] MEDS: Enoxaparin 30 MG/0.3 ML SYR SC (09:30)
[2025-08-27] MEDS: Normal Saline Flush 10 ML SYR IVP ×2 (09:30→19:39)
[2025-08-27] MEDS: Pantoprazole 40 MG TABCR PO (09:31)
[2025-08-27] MEDS: Ferrous Gluconate 324 MG TAB PO (09:32)
[2025-08-27] MEDS: Metoprolol CR 100 MG TABCR PO ×2 (09:32→19:38)
[2025-08-27] MEDS: Furosemide 20 MG TAB PO (09:32)
[2025-08-27] MEDS: Citalopram 20 MG TAB PO (09:32)
[2025-08-27] MEDS: Nystatin POWDER 60 GM JAR TP ×2 (09:34→19:39)
[2025-08-27] MEDS: cloNIDine 0.1 MG TAB PO ×2 (09:35→17:24)
[2025-08-27 09:39] VITALS: BP 117/74; PULSE 94; RESP 16; TEMP 36.4; O2SAT 97
--- NOTE | 2025-08-27 12:53 | PHA.REVIEW2 ---
Pharmacy Admission Review Admission Clinical Review Admission Pharmacy Review: Non-healing ulcer (Acute) Dehydration (Acute) Anxiety (Acute) Failure to thrive in adult (Acute) doxazosin (From Cardura) Allergy (Intermediate, Verified 08/01/25 17:14) Unknown sitagliptin (From Januvia) Allergy (Intermediate, Verified 08/01/25 17:14) Unknown famotidine Allergy (Unknown, Verified 08/01/25 17:14) Other (See Comment) empagliflozin (From Jardiance) Allergy (Verified 08/01/25 17:14) Unknown Resuscitation Status DNR/DNI Height 5 ft 7 in Weight 93.4 kg Comments Comments/Follow Ups: Swing bed - placement issues Pharmacy Admission Review Renal Dosing Medications needing adjustments: Reviewed (CrCl 28.73 mL/min) List of meds needing interventions: Current medications are okay Anticoagulation DVT Prophylaxis: Reviewed Medications: Enoxaparin (30mg daily) Relevant Labs Electrolytes, C-Reactive P, ESR: Reviewed (No new labs for today) DM Control DM Control: Finger Stick Blood Glucose 299 1133 Finger Stick Blood Glucose 299 1128 Finger Stick Blood Glucose 299 1128 Finger Stick Blood Glucose 158 0927 Finger Stick Blood Glucose 158 0725 Finger Stick Blood Glucose 158 0725 DM Control: Reviewed Insulin Dosing, Diabetic Medication: Has order for SS insulin Cardiac Review BP, HR, EF%: Reviewed (BP WNL, HR 94) List meds needing interventions: Has order for furosemide 20mg daily and metoprolol XL 100mg BID QTc Review QTc: Reviewed (450 from 08/08/25) IV to PO Switch IV Medications: Reviewed Home Meds Home Med List reviewed: Reviewed Relevent Home Meds Not ordered & why?: glipizide (on hold per H+P) and metformin (on hold per H+P) Current Meds Current Medication Order Review: Reviewed Comments Comments/Follow Ups: Swing bed - placement issues
[2025-08-27 19:37] VITALS: BP 113/53; PULSE 70; RESP 17; TEMP 36; O2SAT 98
[2025-08-27] MEDS: Mirtazapine 15 MG TAB 30 MG PO (19:38)
[2025-08-27] MEDS: Simvastatin 20 MG TAB PO (19:38)
[2025-08-28] MEDS: Levothyroxine 88 MCG TAB PO (05:21)
[2025-08-28 07:10] VITALS: BP 154/69; PULSE 78; RESP 18; TEMP 35.8; O2SAT 99
[2025-08-28 07:13] VITALS: BP 154/69; PULSE 78; RESP 18; TEMP 35.8; O2SAT 99
[2025-08-28] MEDS: Insulin Aspart 300 UNITS/3 ML PEN SC ×4 (07:52→23:12)
[2025-08-28] MEDS: Enoxaparin 30 MG/0.3 ML SYR SC (07:53)
[2025-08-28] MEDS: cloNIDine 0.1 MG TAB PO ×2 (07:53→19:06)
[2025-08-28] MEDS: Furosemide 20 MG TAB PO (07:53)
[2025-08-28] MEDS: Citalopram 20 MG TAB PO (07:53)
[2025-08-28] MEDS: Ferrous Gluconate 324 MG TAB PO (07:53)
[2025-08-28] MEDS: Pantoprazole 40 MG TABCR PO (07:53)
[2025-08-28] MEDS: Metoprolol CR 100 MG TABCR PO ×2 (07:53→19:48)
[2025-08-28] MEDS: Nystatin POWDER 60 GM JAR TP ×2 (07:54→19:50)
[2025-08-28] MEDS: Normal Saline Flush 10 ML SYR IVP ×2 (07:54→19:48)
--- NOTE | 2025-08-28 09:18 | IN_ITS ---
PT Notes Visit Reasons: Failure to Thrive, Ambulatory Dysfunction Inpatient Physical Therapy Swingbed Evaluation Date: 08/28/2025 Referring Doctor: Renetta Cheung NP PT Orders: PT evaluation and treatment Precautions: fall risk, Standard, anxiety Patient Profile/Admitting Diagnosis: Pt is an 79 yo female admitted to hospital on 08/13/2025 with failure to thrive exacerbated by increased anxiety and fear.Pt with multiple medication adjustments to manage anxiety. Pt transitioned to SB1 on 08/26/2025 and PT Consult placed. Pt now taking Clonidine with (+) effect. PMHX: CHF (congestive heart failure) (Chronic) related to Hg 5.7. Resolved. Nl echo Non-insulin dependent type 2 diabetes mellitus (Acute) Failure to thrive in adult (Acute) Pneumonitis (Acute) Debility (Acute) Hypotension (Acute) NICOLE (acute kidney injury) (Acute) Hypothyroidism (acquired) (Chronic) Hypomagnesemia (Acute) Ambulatory dysfunction (Acute) Acute UTI (Acute) General weakness (Acute) Hx of falling (Acute) Medical History Acute pain of right hip Acute UTI Osteopenia Glaucoma Trochanteric bursitis Atrial fibrillation with RVR Related hg 5.7, isolatedCHF (congestive heart failure) related to Hg 5.7. Resolved. Nl echoAnemia Atrial fibrillation Leucocytosis Acute CHF DVT prophylaxis Abnormal finding on breast imaging Goiter Pleural effusion Acute dyspnea Squamous cell cancer of scalp and skin of neck Breast cancer Hypercholesterolemia HTN (hypertension) Diabetes mellitus Surgical History History of thoracentesis (~03/2025) S/P skin and subcutaneous tissue surgery S/P breast lumpectomy Social History/Home Situation: lives in home with her with ramp to enter. Pt utilizes [facility] for all appointments. She sleeps on the couch and has a commode next to her. Independent with short distance indoor ambulation using her 4WW until 2 weeks prior to admission. does the cooking and helps with bathing and grooming until recently. She has a dog. Equipment Owned/DME:4WW, FWW, commode,ramp to enter Subjective: Pt initially stated she wanted to stay in bed, however with encouragement pt agreed to sit in her chair for breakfast. Objective: [] General Observation: elderly female hooklying position Mental Status:Alert Ox3 , cooperative but fearful, able to follow instructions with calm approach, agreeable to participate in assessment Pain: denied Vital Signs: monitored by Nursing ROM: Right Upper Extremity: WFL Left Upper Extremity: WFL Right Lower Extremity: WFL except DF to neutral with knee extension Left Lower Extremity: WFL except DF to Neutral with knee extension Strength: Right Upper Extremity: grossly 4/5 Left Upper Extremity: grossly 4/5 Right Lower Extremity: Hip flexion: 3/5; hip abduction: 2+ /5; hip extension: 3-/5; knee extension:3+ /5; knee flexion: 3- /5 ankle DF: 3 /5 ; ankle PF:3 /5 Left Lower Extremity:Hip flexion: 3+ /5; hip abduction: 2+ /5; hip extension: 3- /5; knee extension: 3+/5; knee flexion: 3- /5 ankle DF: 3 /5 ; ankle PF: 3 /5 Sensation: intact BED MOBILITY/TRANSFERS: supine to sit min A of 1 with HOB elevated to 30 degrees sit to supine min A for LEs and increased time to allow her to scoot up in bed sit to stand with min A allowing for increased time to left her initiate. The assistance is needed as she reaches for the FWW stand to sit with mod A and verbal and tactile cues to reach back, assistance needed to control descent step turn transfers with FWW min A of 1 with verbal cues for safe approach to surface to allign body with surface GAIT: 40 feet with FWW min A of 1 with w/c follow of a 2nd person for safety. Pt with forward trunk flexion requiring cues for upright posture and obstacle management as she drifts to the left. BALANCE: [] Static sitting Good slightly posterior lean Dynamic Sitting fair hesitant to lean anteriorly Static Standing Fair with BUE support on FWW Dynamic Standing Fair - with BUE support on FWW SPECIAL TESTS: [] Mobility Limitations Standardized Measure [facility] AM -PAC ?6 clicks? Basic Mobility Inpatient Short Form: raw score: 12 CMS score: 68.66% INFORMED CONSENT/EDUCATION: Pt instructed in purpose of PT Consult and plan of care educated on pts functional ability during the evaluation as he arrived at the end. Set up time for ~9am on 08/29/2025 for to participate in PT session in prep for discharge to home ASSESSMENT: [id number] TherAct sit to stand x 4 trials with min A of 1 with cues for encouragement and allowing for increased time to complete tasks with least assistance. Ambulated with FWW min A of 40 feet with w/c follow for safety then 12 feet Pt with forward flexed postured requiring cues for upright posture Assessment: Patient is a 79 year old female referred to physical therapy lara granados with the diagnosis of failure to thrive. Patient presents with clinical signs and symptoms consistent with admitting diagnosis, as demonstrated by the following impairment level findings: 1. impaired strength BLE/BUE musculature 2. impaired balance reactions in sit and stand 3. impaired functional activity tolerance 4. impaired B dorsiflexion L>R 5. fearfulness and anxiety with movements Impairments are contributing to the following functional limitations: 1. AMPAC score of 12 indicating high risk readmission if discharge to community 2. decline in functional transfers 3. decline in bed mobility 4. difficulty to ambulate with FWW 5. dependent for ADL care 6. High risk for falls Pt has demonstrated significant reduction in level of anxiety and ability to follow instructions without becoming overwhelmed and weepy since the start of [facility]. Pt demonstrates good potential to reach goals and return to home with services. Patient is assessed as a Moderate 80291 complexity based on the following: History: 79 yo female with complex PMHx and comorbidities Examination: as stated above Presentation:stable Decision Making:moderate Goals: Goals X1 week 1. Supine-Sit supervision 2. Sit-Supine supervision 3. Sit-Stand CGA 4. Stand-Sit CGA 5. Bed-Chair CGA with FWW 6. Chair-Bed CGA with FWW 7. amb with FWW/4WW CGA >50 feet x2 Plan of Care/Treatment Plan: 1-2x/day, 7 days/week x 1 week. Plan of care has been reviewed with the INVOICE MACHINE OPERATOR providing the service under Physical Therapy direction. Initiate Physical Therapy intervention for strengthening, bed mobility, transfers, gait, stairs, balance training, use of assistive device. DISCHARGE RECOMMENDATIONS: Home with HHPT , hospital bed and gait belt when goals met. TREATMENT CODE/TIME: 70336, 25333/ [id number]
--- NOTE | 2025-08-28 15:53 | PT.INTREAT ---
PT Notes Visit Reasons: Failure to Thrive, Ambulatory Dysfunction Inpatient Physical Therapy Treatment Note [facility] Date: 08/28/25 PRECAUTIONS: Standard, Fall, anxiety and fear of movement SUBJECTIVE: Pt stated they were feeling well. Pt reported missing their dog Pt reported they needed to use the bathroom (Pt her over to the commode). During ambulation Pt reported they felt tired and needed to rest, and PT provided pt with a wheelchair. Pt reported their legs were a little tired. OBJECTIVE: General observation: ? Pt was wake and smiling when PT entered. PAIN: No pain reported VITALS: Monitored by Nursing Therapeutic Activities ([id number][]): Direct one-on-one instruction in dynamic activities to improve functional performance. ? BED MOBILITY/TRANSFERS? Stand-sit: Pt sometimes struggles to reach back with hand, and has difficult time lowering herself down. Stand to commode: Mod A of 1 w/FWW Stand to Recliner: Mod A of 1 w/FWW Sit to stand: From recliner: Min A of 1 w/FWW From commode: Solomon of 1 w/FWW From Wheelchair: Min A of 1 w/FWW (needed about 5 tries) ? ? Ambulation: Chair to Commode: Pt ambulated 6 feet w/FWW CGA and SBA of 1 following w/wheelchair with verbal and tactile cueing for directions and hand placement when lowering herself onto the commode. From Commode: ? Pt ambulated 20 feet w/FWW CGA and SBA following with wheel chair. Pt reported needing a rest and PT helped pt sit in the wheelchair. Wheelchair-recliner: Pt ambulated 20 feet w/FWW CGA and SBA following with wheel chair. Pt reported needing a rest in recliner Exercises in recliner: B LE Ankle pumps: 1x10 Knee slides: 1x10 Elbow flexion/extension: 1x10 Shoulder flexion: 1x10 ASSESSMENT:? Pt was more mentally alert and talkative this session compared to prior sessions. Pt reported having to use the bathroom when asked. Pt was able to ambulate today with FWW CGA and SBA of 1 following with a wheelchair. Once pt was in the wheel chair, PT let her rest before pt walked back to the room. When trying to stand from the wheel chair w/FWW. Pt had a difficult time scootching herself forward in the chair to allow her feet to be underneath her. As pt tried to stand her feet would slide forward and she would fall back. PT cued pt to scootch forward by leaning back, and pt was unable to follow. Pt cued pt to place hands on wheelchair instead of the walker, and pt was able to. After multiple attempts This created some anxiety and pt started to tear up. DPTS spoke with the pt explained why she was having trouble and this wasn?t her fault. DPTS advised to wheel pt back into the room to untuck the gown underneath the pt and allow her to scootch forward. Pt asked to try one more time. Pt tried to stand one more time and was able to stand with FWW and Mod A of 1. Pt continues to need cueing for proper hand, feet, and body placement to allow herself to have proper body mechanics to stand up from a chair. Pt appears to be going in a positive direction and the medication she is on has allowed her to not have a full episode and shut down. Today she teared up, but was able to continue with the session, where in the past, she would have shut down for the whole session. ?PLAN: 1-2x/day, 7 days/week x 1 week. Plan of care has been reviewed with the WAREHOUSE UNLOADER providing the service under Physical Therapy direction. Initiate Physical Therapy intervention for pain management as needed, strengthening, bed mobility, transfers, gait, balance training, and use of assistive device ?TREATMENT CODE/TIME: 28350/2:20-2:45 for a total of 25 minutes DISCHARGE RECOMMENDATION: HHPT Written By: Med Funes DPTS Supervised By Ankita Vidal, PT
[2025-08-28 19:43] VITALS: BP 106/55; PULSE 77; RESP 20; TEMP 37.6; O2SAT 98
[2025-08-28] MEDS: Mirtazapine 15 MG TAB 30 MG PO (19:47)
[2025-08-28] MEDS: Simvastatin 20 MG TAB PO (19:48)
[2025-08-29] MEDS: Levothyroxine 88 MCG TAB PO (06:19)
[2025-08-29] MEDS: Metoprolol CR 100 MG TABCR PO ×2 (07:58→19:55)
[2025-08-29] MEDS: cloNIDine 0.1 MG TAB PO ×2 (07:59→15:24)
[2025-08-29] MEDS: Citalopram 20 MG TAB PO (07:59)
[2025-08-29] MEDS: Insulin Aspart 300 UNITS/3 ML PEN SC ×4 (07:59→23:13)
[2025-08-29] MEDS: Furosemide 20 MG TAB PO (07:59)
[2025-08-29] MEDS: Ferrous Gluconate 324 MG TAB PO (07:59)
[2025-08-29] MEDS: Pantoprazole 40 MG TABCR PO (07:59)
[2025-08-29] MEDS: Normal Saline Flush 10 ML SYR IVP ×2 (08:00→19:56)
[2025-08-29] MEDS: Nystatin POWDER 60 GM JAR TP ×2 (08:00→20:06)
[2025-08-29] MEDS: Enoxaparin 30 MG/0.3 ML SYR SC (08:00)
--- NOTE | 2025-08-29 08:34 | PDOC.CMPRO ---
Date of service: 08/29/25 Time of Service: 08:34 Care Management Progress Note Progress Note Text Progress Note Text: Arlene was sitting in a recliner when CM met with her and was accompanied by her Quirino. PT notes improvement in her ambulation, stating that she requires min/mod assistance to stand but once standing she is able to walk with CGA/min assistance. PT also noticed Arlene has a little neglect or visual deficit on the right and also recommend receive additional mobility teaching in order to ensure a successful discharge to home. In preparation for Arlene's anticipated discharge home early next week, CM confirmed with Alla from [facility] that increased home supports through [facility] are being coordinated. Eddie was notified that a resumption of [facility] RN/PT/OT will be needed. An order for a hospital bed is pending through [facility]. Today, PT asked CM if her insurance would possibly cover a jessica height wheelchair? CM is awaiting supporting documentation needed to delve further into this request. CM will continue to follow. Discharge Potential Discharge Needs: PCP F/U Appt Anticipated Barriers to Discharge: Bed availability Patient/Family Education Needs: Review discharge instructions, discuss Ask Me Three Transportation: [facility] RCT Transportation: Wheel chair van (with lift assist.) Plan: Arlene's plan at this time is to discharge home with resumption of [facility] RN/PT/OT services and new caregiver supports early next week. Quirino is planning to resume the role as primary caregiver. A hospital bed, has already been approved through [employer] (they just need a d/c date.) The patient will need [facility] W/C van for transportation, and lift assist. CM will continue to follow. Social Determinants of Health Screening Will the Patient Participate in the Screening?: Unable to obtain
--- NOTE | 2025-08-29 09:57 | PTTR_ITS ---
PT Notes Visit Reasons: Failure to Thrive, Ambulatory Dysfunction Inpatient Physical Therapy Treatment Note [facility] Date: 08/29/25 AM SESSION PRECAUTIONS: Standard, Fall, anxiety and fear of movement SUBJECTIVE: Pt stated they were feeling well. Pt reported missing their dog.During ambulation Pt reported they felt tired and needed to rest, and PT provided pt with a wheelchair. Pt reported their legs were a little tired. OBJECTIVE: General observation: ? Pt was wake, smiling, and eating a breakfast sandwich when PT entered. HOME HEALTH CARE CASE MANAGER brought pt and her coffee, and pt reached for the coffee that was on her left which was across her body, instead of the coffee on the right, closer to her and on her right side, which was meant for her. PAIN: No pain reported VITALS: Monitored by Nursing Therapeutic Activities ([id number][]): Direct one-on-one instruction in dynamic activities to improve functional performance. ? BED MOBILITY/TRANSFERS? Stand-sit: Min A of 1 w/FWW Pt struggles to reach back with hand, and has difficult time lowering herself down. Sit to stand: From recliner: Min A of 1 w/FWW From Wheelchair: Min A of 1 w/FWW (needed about 4 tries). PT noticed wheel chair arm rest were too low for the pt. PT provided a stationary chair with higher arm rest, and set it next to the wheel chair. ? Ambulation: From recliner: ? Pt ambulated 40 feet w/FWW CGA and SBA following with wheelchair. Pt reported needing a rest and PT helped pt sit in the wheelchair. Wheelchair-recliner: Pt ambulated 47 feet w/FWW CGA and SBA following with wheelchair. PM SESSION SUBJECTIVE: Pt stated they were feeling well, a little tired but wanting to go for a walk. Pt reported she wanted to go home, and misses her dog. OBJECTIVE: General observations: pt responding in sentences and not just one-word answers like she has in the past. PAIN: No pain reported VITALS: Monitored by Nursing Therapeutic Activities ([id number][]): Direct one-on-one instruction in dynamic activities to improve functional performance. ? BED MOBILITY/TRANSFERS? Stand-sit: Min A of 1 w/FWW Sit to stand: From recliner: Min A of 1 w/FWW From Stationary chair: Mod A of 1 w/FWW (2tries), Pt needed more help when she is transitioning her hands from the chair to the FWW.? ? Ambulation: Recliner-stationary chair: Pt ambulated 50 feet w/FWW CGA and SBA following with stationary chair. Stationary chair-recliner: Pt ambulated 50 feet w/FWW CGA and SBA following with stationary chair. ASSESSMENT:? Pt ambulated much further today than previous days. Pt didn?t get fatigued as much in the PM session and was able to go further. Pt needs verbal cueing with ambulation to stay to the straight as pt will drift to the right and left. Pt also continues to need verbal cueing form aligning herself with chair before trying to sit down. In the am session pt became a little flustered trying to stand from the wheelchair. However, after a stationary chair was brought out for the pt to use the arm rest from the stationary chair to stand, she was able to stand. Pt requires elevated surface/arm rest to utilize Triceps to assist with pushing up. Remains limited by lack of anterior weight shift during transition. ?PLAN: 1-2x/day, 7 days/week x 1 week. Plan of care has been reviewed with the CLINICAL EDUCATION COORDINATOR providing the service under Physical Therapy direction. Initiate Physical Therapy intervention for pain management as needed, strengthening, bed mobility, transfers, gait, balance training, and use of assistive device ?TREATMENT CODE/TIME: AM session 46566/9:28-10:03 for a total of 35 minutes Pm session: 94943/3:00-3:15 for a total of 15 minutes DISCHARGE RECOMMENDATION: HHPT Written By: KHUSHBU Alfaro Supervised by: Ankita Vidal, PT
--- NOTE | 2025-08-29 10:46 | PGE_ITS ---
Date of Service Date of service: 08/29/25 Time of Service: 10:46 Assessment and Plan Assessment and plan (1) Failure to thrive in adult: Start date: 08/26/25 Start time: 18:14 Status: Acute Assessment and plan: -Failure? to thrive in adult: Repeated admissions for failure to thrive and ambulatory dysfunction : after electing to go home VS SNF. seems to have an inability to walk safely at home, perform independent ADL activity and self-care. Functional status seemed to have regressed shortly s/p discharge as patient was able to transfer form bed to chair and seems to correlate to increased BUN levels. Continue PT Still required assistance but improving Continue recommendations for: At least daily skilled PT? to address strength, balance, transfers, and gait. Discussed with patient and spouse and discharge to SNF is still ?recommended - will Change to [facility] Care management had placed referral early in the stay:?No bed offers at this time -Ambulatory dysfunction: as above -Anxiety: Most likely the driving factor in her? ability to ambulate secondary to crippling fear of falling Gabapentin discontinued no c/o pain, failed clonazepam low dose - long half life and ongoing somnolence depsite minimal dosing Attempting daily clonidine low dose, this might be central with medical history and presentation, increased BP with standing up . Psychiatry consult if no improvement at 48 hours. Has per previous notes was stating that he would like to take her home despite prior failed discharge and readmission -Care management: Was working on a plan and a hospital bed for home and accommodation the event we could not get a SNF offer . ? -CM : [facility] stay while adjusting medicines- no offer -Dehydration: Fluid resucitation completed - resume furosemide - Abnormal urinalysis: no UTI as per urine Cx ?-Intertriginous candidiasis: Continue nystatin powder and skin care. - Non-insulin dependent type 2 diabetes mellitus: Ongoing POCT glucose measurements AC and HS with resistant SSI coverage prior to meals as per school vocational educator/ promotions producer recommendations Will resume outpatient medical therapy at discharge? - will continue hold oral antihyperglycemic agents at this time -(HFpEF) heart failure with preserved ejection fraction: No exacerbation will continue outpatient medical therapy. LVEF 60-65% on 03/01/25 Will continue home dose lasix and SGLT2 inhibitors are recommended in HFpEF Skin care of chronic changes in lower extremities. -HTN (hypertension): Continue home medical therapy with furosemide Without history of HFrEF, metoprolol succinate mostly used in the setting of at rial fibrillation ?for rate control d/t beta-1 selective blocking properties but still can have effect a lesser effect on blood pressure control -Atrial fibrillation: As above Not on ?anticoagulation therapy, reportedly refused ?in 2022 Now the patient might not be a candidate for long-term anticoagulation with risk of falling Consider re-discussing if ?discharged to SNF as per HASBLED and CHADVASC2 scores -Depression: Stable and no acute exacerbation, ongoing home dose citalopram -CKD (chronic kidney disease): At baseline , no NICOLE on CKD -Hypothyroidism (acquired): TSH is elevated > 6 with normal T4- most likely reflecting impaired compliance Continue outpatient medical therapy resumed on admission- ?and outpatient management on discharge ?-Obesity (BMI 30.0-34.9): counselling Ongoing discussion re: the possibility of GLP-1 w weekly SC injection and f/u discussion with outpatient provider Nutrition consultation completed ? 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 which appears stable though there are some chronic ulcers ?to scalp Dressing change Q 24 hours with Mepilex to scalp -Non-healing Scalp ulcer As above Wound consult Discussed with (2) Ambulatory dysfunction: Status: Chronic (3) Dehydration: Status: Acute (4) Anxiety: Status: Acute (5) Abnormal urinalysis: Status: Resolved (6) Intertriginous candidiasis: (7) Non-insulin dependent type 2 diabetes mellitus: (8) (HFpEF) heart failure with preserved ejection fraction: (9) Atrial fibrillation: Status: Chronic (10) Depression: (11) CKD (chronic kidney disease): (12) Hypothyroidism (acquired): (13) Obesity (BMI 30.0-34.9): (14) Non-healing ulcer: Status: Acute Objective Last Vital Signs Temp 37.6 C H 08/28/25 19:43 Pulse 77 08/28/25 19:43 Resp 20 08/28/25 19:43 BP 106/55 L 08/28/25 19:43 Pulse Ox 98 08/28/25 19:43
[2025-08-29 19:51] VITALS: BP 123/55; PULSE 66; RESP 18; TEMP 36; O2SAT 100
[2025-08-29] MEDS: Simvastatin 20 MG TAB PO (19:55)
[2025-08-29] MEDS: Mirtazapine 15 MG TAB 30 MG PO (19:55)
[2025-08-30] MEDS: Levothyroxine 88 MCG TAB PO (06:44)
[2025-08-30 07:52] VITALS: BP 115/54; PULSE 67; RESP 16; TEMP 36.1; O2SAT 96
[2025-08-30] MEDS: Metoprolol CR 100 MG TABCR PO ×2 (08:49→21:43)
[2025-08-30] MEDS: cloNIDine 0.1 MG TAB PO ×2 (08:50→21:43)
[2025-08-30] MEDS: Furosemide 20 MG TAB PO (08:50)
[2025-08-30] MEDS: Ferrous Gluconate 324 MG TAB PO (08:50)
[2025-08-30] MEDS: Citalopram 20 MG TAB PO (08:50)
[2025-08-30] MEDS: Pantoprazole 40 MG TABCR PO (08:50)
[2025-08-30] MEDS: Enoxaparin 30 MG/0.3 ML SYR SC (08:51)
[2025-08-30] MEDS: Insulin Aspart 300 UNITS/3 ML PEN SC ×4 (08:52→21:45)
[2025-08-30] MEDS: Nystatin POWDER 60 GM JAR TP ×2 (09:05→21:44)
--- NOTE | 2025-08-30 09:32 | W.PALLCONSUL ---
Date of service: 08/30/25 Time of Service: 09:32 History of Present Illness Narrative: Arlene was seen in her room for Palliative consultation. She was alone at the time of the visit. She was awake and alert and engaged in the visit. She was sitting up in the recliner. She is looking forward to going home, likely early next week. Her is her primary caregiver at home. She is getting a hospital bed prior to discharge. She has been working with PT and making progress. She is walking short distances with the walker. Arlene had previously reported CODE STATUS to be DNR/DNI, she confirms this today. Reviewed COLST, she agrees to complete but wishes to have her present. Nursing reports ongoing anxiety, especially surrounding fear of falling. Discussed trial of buspirone with hospitalist, recommend 5 mg TID to start, titrate as needed. Could also consider seroquel over clonidine in the setting of sundowning symptoms. Assessment and Plan Assessment and plan (1) Failure to thrive in adult: Start date: 08/26/25 Start time: 18:14 Status: Acute Assessment and plan: With 3 recent admissions to [facility] over the last month. She lives at home in [place] [facility] with her who is her caregiver. She is having more difficulty with mobility, she is working with PT, PT reports that she is progressing. Her wants to take her home. The plan is for her to get a hospital bed prior to discharge home. Her will continue to be her caregiver. She will also have assistance with [facility] as well as HH once she gets home. (2) Ambulatory dysfunction: Status: Chronic Assessment and plan: She is progressing well with PT per Ankita's report. (3) Dehydration: Status: Acute (4) Anxiety: Status: Acute Assessment and plan: Consider buspar if anxiety persists. (5) Atrial fibrillation: Status: Chronic (6) Non-healing ulcer: Status: Acute Assessment and plan: To head, dressing in place. (7) Palliative care patient: Status: Acute Assessment and plan: Arlene will benefit from ongoing outpatient Palliative care. She will need HV for f/u. (8) Advanced care planning/counseling discussion: Status: Acute Assessment and plan: Reviewed CODE STATUS. She states she is DNR/DNI. Reviewed and completed COLST with present later in the afternoon. She is a DNR/DNI. She wants comfort focused care if she is not able to speak for herself, no feeding tube, IVF- trial course, Abx- determine the use or limitation when infection occurs with comfort as goal. Review of Systems Narrative: Denies pain, n/v. Reports bowels are moving. She is getting around with walker. PFSH All Active Problems (Updated 08/30/25 @ 12:21 by Aicha Toro NP) Advanced care planning/counseling discussion (Acute) Palliative care patient (Acute) Non-healing ulcer (Acute) Dehydration (Acute) Atrial fibrillation (Chronic) Anxiety (Acute) Failure to thrive in adult (Acute) Debility (Acute) Hypotension (Acute) NICOLE (acute kidney injury) (Acute) Hypomagnesemia (Acute) Ambulatory dysfunction (Chronic) Acute UTI (Acute) General weakness (Acute) Hx of falling (Acute) Medical History (HFpEF) heart failure with preserved ejection fraction Obesity (BMI 30.0-34.9) Intertriginous candidiasis CKD (chronic kidney disease) Depression Non-insulin dependent type 2 diabetes mellitus Hypothyroidism (acquired) CHF (congestive heart failure) related to Hg 5.7. Resolved. Nl echo Acute pain of right hip Acute UTI Osteopenia Glaucoma Trochanteric bursitis Atrial fibrillation with RVR Related hg 5.7, isolated Anemia Leucocytosis Acute CHF DVT prophylaxis Abnormal finding on breast imaging Goiter Pleural effusion Acute dyspnea Squamous cell cancer of scalp and skin of neck Breast cancer Hypercholesterolemia HTN (hypertension) Diabetes mellitus Surgical History History of thoracentesis (~03/2025) S/P skin and subcutaneous tissue surgery S/P breast lumpectomy Social History Smoking/Tobacco Use Status: Never Smoking risk assessment performed?: Yes Alcohol Intake: never Drug use: Never Substance use type: does not use Housing: house Do you feel safe at home: Yes Do you feel safe in your relationship?: Yes Exam Narrative Exam Narrative: General: very pleasant, well-nourished, elderly female, sitting up in the recliner with legs elevated. She is awake and alert, talkative. HEENT: dressing to top of head, no hair to top of head, EOMI, mmm neck: supple Respiratory: respirations appear even and unlabored at rest. Ext: moves all 4 extremities freely, no edema to BLEs. Results Last Vital Signs Temp 36.1 C L 08/30/25 07:52 Pulse 67 08/30/25 07:52 Resp 16 08/30/25 07:52 BP 115/54 L 08/30/25 07:52 Pulse Ox 96 08/30/25 07:52 Time Spent Time Spent with Patient Time Spent(min): 110
--- NOTE | 2025-08-30 10:03 | PDOC.CMPRO ---
Date of service: 08/30/25 Time of Service: 10:03 Social Determinants of Health Screening Will the Patient Participate in the Screening?: Unable to obtain
--- NOTE | 2025-08-30 13:42 | PTTR_ITS ---
PT Notes Visit Reasons: Failure to Thrive, Ambulatory Dysfunction Inpatient Physical Therapy Treatment Note [facility] Date: 08/30/25 PRECAUTIONS: Standard, Fall, anxiety and fear of movement SUBJECTIVE: Patient initially stating she did not want to get out of bed however with encouragement was agreeable. P.m. session patient reporting fatigue stating she has been out of bed a long time today. OBJECTIVE: AM session: Patient presented supine in bed P.m. session patient presented seated in recliner with her sister and [id number] visiting PAIN: No pain reported VITALS: Monitored by Nursing Therapeutic Activities ([id number][]): Direct one-on-one instruction in dynamic activities to improve functional performance. ? BED MOBILITY/TRANSFERS? AM session: Supine with head of bed at 30 degrees to sit at edge of bed: Supervision with increased time Sit to stand from bed at 21 contact-guard assist with increased time Sit to stand from bedside chair patient requires increased time to problem solve proper hand placement, min assist as she transitions her hand from chair to FWW. Patient required 2 attempts and then was successful. Stand-sit: Min A of 1 w/FWW Pt struggles to reach back with hand, and has difficult time lowering herself down. Ambulation: Facilitated ambulation 20 feet x 2 with FWW contact-guard assist and continuous cueing for FWW management to avoid objects on the right. PM SESSION Sit to stand from bedside chair and commode patient requires increased time to problem solve proper hand placement, min assist as she transitions her hand from chair to FWW. Patient required 2 attempts and then was successful. Stand-sit: Min A of 1 w/FWW Pt struggles to reach back with hand, and has difficult time lowering herself down. Ambulation: Facilitated ambulation 10 feet x 1 with FWW contact-guard assist and continuous cueing for FWW management to avoid objects on the right. Sit to supine mod assist of 1 due to increased patient fatigue which increased her fear as she felt her legs were weak. ASSESSMENT:? Patient with improvement in bed mobility skills this a.m. session. Patient teaching with unable to be completed on this day as he was unable to visit due to medical appointment for himself. Patient's sister present. Patient noted with increased fatigue this p.m. session limiting her tolerance to ambulation which then increased her fear and anxiety. Despite patient's increased fear and anxiety she was able to follow instructions to maintain safety. Patient continues to respond best to calm slow approach to functional tasks allowing her increased time to process and attempt/initiate functional movements. Patient has difficulty with unfamiliar clinicians. Patient performance is best during a.m. sessions. P.m. sessions inconsistent pending on whether or not patient has had a rest./Nap. Will continue with family teaching with providing physical assistance in preparation for discharge. ?PLAN: 1-2x/day, 7 days/week x 1 week. Plan of care has been reviewed with the FINANCE EFFECTIVENESS MANAGER providing the service under Physical Therapy direction. Initiate Physical Therapy intervention for pain management as needed, strengthening, bed mobility, transfers, gait, balance training, and use of assistive device ?TREATMENT CODE/TIME: AM [id number]/8:21-8:39am Pm session:[id number] DISCHARGE RECOMMENDATION: KRYS
--- NOTE | 2025-08-30 14:11 | CMACTNOTE_ITS ---
Date of service: 08/30/25 Time of Service: 14:11 Care Management Activity Note Activity Note Text Activity Note Text: Arlene is working with PT and continues to make steady progress towards her goal which is to discharge home with a resumption of [facility] RN/PT/OT services, a hospital bed and new caregiver supports early next week. CM spoke with Alla from [facility] and increased home support through [facility] is being coordinated, start date to follow. And her hospital bed is being ordered through [employer] ([phone]), bed can not be ordered until discharge date is confirmed and will take 24 hours to deliver. Ankita from PT reports that Arlene has made significant gains, particularly within the last few days. Patient relies heavily on her own body weight and momentum for mobility and demonstrates increased fear and freezes when others attempt to physically assist her. She also moves around with greater ease when she initiates the activity her self-such as getting out of bed or rising from a chair. Quirino has b sesar receiving training, and PT is planning on working with him this afternoon. CM will continue to follow.
[2025-08-30] MEDS: QUEtiapine 25 MG TAB 12.5 MG PO (18:28)
[2025-08-30 21:33] VITALS: BP 110/48; PULSE 72; RESP 16; TEMP 37.4; O2SAT 97
[2025-08-30] MEDS: Simvastatin 20 MG TAB PO (21:43)
[2025-08-30] MEDS: Mirtazapine 15 MG TAB 30 MG PO (21:43)
[2025-08-31] MEDS: Levothyroxine 88 MCG TAB PO (06:14)
[2025-08-31 07:46] VITALS: BP 117/91; PULSE 64; RESP 18; TEMP 36.2; O2SAT 99
[2025-08-31] MEDS: cloNIDine 0.1 MG TAB PO ×2 (08:14→21:30)
[2025-08-31] MEDS: Citalopram 20 MG TAB PO (08:15)
[2025-08-31] MEDS: Ferrous Gluconate 324 MG TAB PO (08:15)
[2025-08-31] MEDS: Metoprolol CR 100 MG TABCR PO ×2 (08:15→21:30)
[2025-08-31] MEDS: QUEtiapine 25 MG TAB 12.5 MG PO (08:15)
[2025-08-31] MEDS: Pantoprazole 40 MG TABCR PO (08:15)
[2025-08-31] MEDS: Nystatin POWDER 60 GM JAR TP ×2 (08:16→21:30)
[2025-08-31] MEDS: Furosemide 20 MG TAB PO (08:16)
[2025-08-31] MEDS: Enoxaparin 30 MG/0.3 ML SYR SC (08:16)
[2025-08-31] MEDS: Insulin Aspart 300 UNITS/3 ML PEN SC ×4 (08:17→21:50)
--- NOTE | 2025-08-31 09:12 | PT.INTREAT ---
Date of service: 08/31/25 Time of Service: 08:40 PT Notes Visit Reasons: Failure to Thrive, Ambulatory Dysfunction Inpatient Physical Therapy Treatment Note [facility] Date: 08/31/25 PRECAUTIONS: Standard, Fall, anxiety and fear of movement SUBJECTIVE: Arlene notes that she remains very fearful of falling and is anxious in regards to this. Is agreeable to get out of bed this morning. Needs to use commode. OBJECTIVE: AM session: Patient presented supine in bed PAIN: No pain reported VITALS: Monitored by Nursing Therapeutic Activities ([id number]): Direct one-on-one instruction in dynamic activities to improve functional performance. ?? BED MOBILITY/TRANSFERS? AM session: Supine with head of bed at 30 degrees to sit at edge of bed: supervision with increased time Sit to supine: Luke x1 with increased time Sit to stand from bed at 21 contact-guard assist with increased time Sit to stand from commode patient requires increased time to problem solve proper hand placement, min assist as she transitions her hand from chair to FWW. Patient required 2 attempts and then was successful. Stand-sit: Min A of 1 w/FWW Pt struggles to reach back with hand, and has difficult time lowering herself down. Ambulation:Bed to commode FWW contact-guard assist and continuous cueing for FWW management to avoid objects on the right. Patient refused further ambulation and asked to return to bed from commode. Therapeutic Exercise ([id number]) provided skilled instruction promoting extremity strength and stabilization as below SLR 10x R/L SAQ 10x R/L Heel slides 10x R/L Supine December 10x R/L Ankle pumps 10x R/L Glut sets 10x R/L Hip abduction supine 10x R/L Hip adduction iso 10x ASSESSMENT:? Arlene very fearful of falling. Required extensive cueing for proper transfers and hand placement. Increased assistance needed for bed mobility. ?PLAN: 1-2x/day, 7 days/week x 1 week. Plan of care has been reviewed with the PUBLICATION SPECIALIST providing the service under Physical Therapy direction. Initiate Physical Therapy intervention for pain management as needed, strengthening, bed mobility, transfers, gait, balance training, and use of assistive device ?TREATMENT CODE/TIME: AM session [id number] 8:40-9:10 am DISCHARGE RECOMMENDATION: HHPT or possible SNF ? GUME Manjarrez?
[2025-08-31 11:50] VITALS: BP 140/52; PULSE 66; RESP 19; TEMP 36.6; O2SAT 99
[2025-08-31 19:39] VITALS: BP 134/60; PULSE 70; RESP 16; TEMP 36; O2SAT 95
[2025-08-31] MEDS: Mirtazapine 15 MG TAB 30 MG PO (21:30)
[2025-08-31] MEDS: Simvastatin 20 MG TAB PO (21:30)
[2025-08-31] MEDS: Normal Saline Flush 10 ML SYR IVP (21:49)
[2025-09-01] MEDS: Levothyroxine 88 MCG TAB PO (05:16)
--- NOTE | 2025-09-01 06:02 | W.NUTRFU ---
Date of service: 09/01/25 Time of Service: 06:02 Nutrition Note NOTE: Have met with Arlene multiple times last week as she continues to work with PT to recondition enough for her goal to discharge home with services. She is swing bed status currently. She is tolerating a consistent CHO diet with consistent fair-good intake. Weight generally stable this admission with overall weight gain trend over the last couple years. Has declined offers for NFPE to help assess muscle/fat losses but from all reports has declined in ADL's. Will take glucose control boost occasionally this admission for additional protein, but otherwise orders consistent meat based entrees. Glucose not too consistent per fingerstick history - generally falls upper 100's to upper 200's with excursions noted. A1C 5.9% last month -has denied frequent lows. Usually take just metformin and glipizide at home. getting corrections AC and HS with aspart this admission with home meds on hold. Education offered throughout her admission. declines outpatient nutrition services at this time. As patient is higher risk for deficiency in vitamin D would recommend home supplementation and testing via PCP. As patient is anticipating discharge over the next few days, would recommend adding her home diabetes meds to monitor and make adjustments prior to discharge. Will continue to monitor glucose, intake, weight, desire for education Time Spent in Nutritional Counseling and Treatment: 0
[2025-09-01 07:43] VITALS: BP 147/82; PULSE 94; RESP 18; TEMP 36.5; O2SAT 100
[2025-09-01 07:54] VITALS: BP 138/68; PULSE 70
[2025-09-01] MEDS: Nystatin POWDER 60 GM JAR TP ×2 (07:55→21:24)
[2025-09-01] MEDS: Enoxaparin 30 MG/0.3 ML SYR SC (07:55)
[2025-09-01] MEDS: cloNIDine 0.1 MG TAB PO ×2 (07:55→21:01)
[2025-09-01] MEDS: Furosemide 20 MG TAB PO (07:56)
[2025-09-01] MEDS: Ferrous Gluconate 324 MG TAB PO (07:56)
[2025-09-01] MEDS: Insulin Aspart 300 UNITS/3 ML PEN SC ×4 (07:56→21:01)
[2025-09-01] MEDS: Pantoprazole 40 MG TABCR PO (07:56)
[2025-09-01] MEDS: QUEtiapine 25 MG TAB 12.5 MG PO ×2 (07:56→18:22)
[2025-09-01] MEDS: Metoprolol CR 100 MG TABCR PO ×2 (07:56→21:01)
[2025-09-01] MEDS: Citalopram 20 MG TAB PO (07:56)
--- NOTE | 2025-09-01 09:29 | PT.INTREAT ---
PT Notes Visit Reasons: Failure to Thrive, Ambulatory Dysfunction Inpatient Physical Therapy Treatment Note [facility] Date: September 01, 2025 PRECAUTIONS:[place] SUBJECTIVE: Arlene notes that she is feeling much better today. It was much easier to get out of bed and into the recliner this morning. Hopeful to be able to go home soon to see her dog. Notes that she has a FWW at home and will utilize it. She notes that her also has been working on their home to make it easier for her to get around. OBJECTIVE: ? PAIN: Declines pain VITALS: Monitored via Nursing Therapeutic Activities (05254n3): Direct one-on-one instruction in dynamic activities to improve functional performance. ? BED MOBILITY/TRANSFERS? Sit-stand: CGA ? Stand-sit: CGA with cueing for proper hand placement ? Chair-commode: CGA with use of FWW ? Commode-Chair: CGA with use of FWW Provided skilled cues and instruction on performance and technique throughout. ? GAIT? ?(am session) ? Assistive Device: FWW? Weight bearing: FWB Assist: CGA ? Distance:? 20ft x2 ? Deviation: cueing to pick feet up and avoiding scuffing. ? ? (pm session) Assistive Device: FWW Weightbearing: FWB Assist: CGA Distance: 150 ft Deviation: cueing to lift feet and avoid scuffing. ? Therapeutic Exercises (94713y8): Direct one-on-one instruction in therapeutic exercises to develop strength, endurance, range of motion and flexibility. ? Exercises ? LAQ x10 R/L Hip flexion seated march x10 R/L Hip adduction iso [id number] Hip abduction iso 10x5 seconds Standing hip flexion x5 R/L Ankle pumps x20 R/L Standing december x1 minute with use of FWW Provided skilled instruction in proper exercise performance Provided skilled manual cues to facilitate proper muscle recruitment and/or form ASSESSMENT:? Bright is transferring with much less difficulty. Less fear of falling and ambulating with FWW requiring less assistance as well as cueing. PM session able to complete sm loop with FWW. Definite improved functional endurance. PLAN: 1-2x/day, 7 days/week x 1 week. Plan of care has been reviewed with the LOGISTICS OFFICER providing the service under Physical Therapy direction. Initiate Physical Therapy intervention for pain management as needed, strengthening, bed mobility, transfers, gait, balance training, and use of assistive device TREATMENT CODE/TIME: 04401/13079 25 minutes 9:00-9:25 am; 35141 15 minutes 12:30-12:45 pm DISCHARGE RECOMMENDATION: KRYS Burkett, [facility]
[2025-09-01 20:24] VITALS: BP 115/82; PULSE 64; RESP 18; TEMP 36; O2SAT 99
[2025-09-01] MEDS: Simvastatin 20 MG TAB PO (21:01)
[2025-09-01] MEDS: Mirtazapine 15 MG TAB 30 MG PO (21:01)
[2025-09-02] MEDS: Levothyroxine 88 MCG TAB PO (06:11)
[2025-09-02] MEDS: Enoxaparin 30 MG/0.3 ML SYR SC (07:46)
[2025-09-02] MEDS: Insulin Aspart 300 UNITS/3 ML PEN SC ×3 (07:46→20:18)
[2025-09-02] MEDS: Ferrous Gluconate 324 MG TAB PO (07:47)
[2025-09-02] MEDS: Citalopram 20 MG TAB PO (07:47)
[2025-09-02] MEDS: Metoprolol CR 100 MG TABCR PO ×2 (07:47→20:18)
[2025-09-02] MEDS: QUEtiapine 25 MG TAB 12.5 MG PO ×2 (07:47→18:21)
[2025-09-02] MEDS: Pantoprazole 40 MG TABCR PO (07:47)
[2025-09-02] MEDS: Furosemide 20 MG TAB PO (07:47)
[2025-09-02] MEDS: cloNIDine 0.1 MG TAB PO ×2 (07:47→20:18)
[2025-09-02] MEDS: Nystatin POWDER 60 GM JAR TP ×2 (07:48→23:30)
[2025-09-02 08:04] VITALS: BP 116/65; PULSE 66; RESP 17; TEMP 36.2; O2SAT 97
--- NOTE | 2025-09-02 11:59 | PTTR_ITS ---
PT Notes Visit Reasons: Failure to Thrive, Ambulatory Dysfunction Inpatient Physical Therapy Treatment Note [facility] Date: 09/02/25 SUBJECTIVE: Pt stated they were feeling well, a little tired but wanting to go for a walk. Pt reported she wanted to go home, and misses her dog. Pt reported she needed to use the bathroom before she walked. During ambulation Pt reported she needed to sit down, PT provider her with a recliner to sit. OBJECTIVE: General observations: Pt sitting in bed just finishing her breakfast. Pt had arrived. Pt incontinence, and bottoms soaked. PAIN: No pain reported VITALS: Monitored by Nursing Therapeutic Activities (55597j[]): Direct one-on-one instruction in dynamic activities to improve functional performance. ? BED MOBILITY/TRANSFERS? Supine-EOB: Min A of 1. Pt just needs a little assist scootching her right hip closer to EOB allowing her right foot to touch the floor. Sit to stand: From bed: w/FWW CGA (needed a couple of tries) (PT raised the bed to assist pt) From Commode: Min A of 1 w/FWW (2tries), Pt needed more help when she is transitioning her hands from the chair/ commode/ bed to the FWW.? ? Ambulation: Bed to commode: Pt ambulated 6 feet w/FWW CGA and SBA of 1. From commode: Pt ambulated 50 feet w/FWW CGA and SBA following with recliner. ASSESSMENT:? Pt continues to be incontinent somedays. Pt was able to perform sit to stand and ambulate with CGA. Pt will stick to the commode/bed. PT will help the pt unstick before attempting to stand. Pt was aware she needed to sit during ambulation. Pt originally wanted to turn around and walk back herself. PT informed her she had a recliner behind her and we would have her sit down in the chair. Pt may not have ambulated as far as prior sessions, but she recognized that she needed to sit down and her body?s limits without anxiety. Pt demonstrated slight apprehension while amb in hallway when she observed a staff member standing in her line of vision. Uncertain if this precipitated her need to sit and go back to her room. She remains limited by lack of anterior weight shift during transitions. PLAN: 1-2x/day, 7 days/week x 1 week. Plan of care has been reviewed with the SALES REPRESENTATIVE METALS providing the service under Physical Therapy direction. Initiate Physical Therapy intervention for pain management a s needed, strengthening, bed mobility, transfers, gait, balance training, and use of assistive device ?TREATMENT CODE/TIME: 72894/9:31-10:00 DISCHARGE RECOMMENDATION: HHPT Written by : KHUSHBU Alfaro Supervised By: Ankita Vidal PT
--- NOTE | 2025-09-02 12:00 | W.NUTRFU ---
Date of service: 09/02/25 Time of Service: 12:00 Nutrition Note NOTE: follow up with alvina. Has been having fair/good intake. weight taken yesterday via bed scale - looks consistent. Home glipizide and metformin continue to be held and resistant sliding scale ordered for glucose corrections at meals and HS - glucose has been 180 or greater since 08/29 24 units received in aspart yesterday as TDD. With persistent hyperglycemia, would consider reintroduction of glipizide with goal of mealtime glucose <200. Time Spent in Nutritional Counseling and Treatment: 5 min
--- NOTE | 2025-09-02 14:23 | PTTR_ITS ---
Date of service: 09/02/25 PT Notes Visit Reasons: Failure to Thrive, Ambulatory Dysfunction Inpatient Physical Therapy Treatment Note [facility] Date: September 02, 2025 PRECAUTIONS:[place], [place] SUBJECTIVE: Arlene reports she slept well last night. She requested to use the commode prior to ambulation. She states her hospital bed is being delivered today and she may be going home soon. Arlene notes she is looking forward to seeing her dog. She states seh will keep walking and doing exercises when she gets home. OBJECTIVE: ? PAIN: Declines pain VITALS: Monitored via Nursing Therapeutic Activities (48650j7): Direct one-on-one instruction in dynamic activities to improve functional performance. ? BED MOBILITY/TRANSFERS? Sit-stand: CGA x 4 trials? Stand-sit: CGA with cueing for proper hand placement ? x 3 of 4 trials? Chair-commode: CGA with use of FWW ? Commode-Chair: CGA with use of FWW Provided skilled cues and instruction on performance and technique throughout. ? Assistive Device: FWW Weightbearing: FWB Assist: CGA with chair follow Distance: 100 ft Deviation: cueing to lift feet and avoid scuffing. ? Therapeutic Exercises (32558i7): Direct one-on-one instruction in therapeutic exercises to develop strength, endurance, range of motion and flexibility. ? Exercises BLE intermittent cue to reduce speed of movement ? LAQ x10 R/L Hip flexion seated december x10 R/L Hip adduction iso [id number] Hip abduction iso 10x5 seconds Standing hip flexion x5 R/L Ankle pumps x20 R/L Standing december x1 minute with use of FWW Provided skilled instruction in proper exercise performance Provided skilled manual cues to facilitate proper muscle recruitment and/or form ASSESSMENT:? Arlene is having less fear of falling. She is ambulating with FWW requiring less assistance as well as less cueing. Definite improved functional endurance. She is able to express herself when she starts to fatigue reducing onset of anxiety and fear. Arlene is able to work through episodes of needing mutiple attempts at standing now as compared to earlier sessions in which she would breakdown into tears if she was unable to stand on initial trial. CM reports pt may d/c to home on 09/04/2025 PLAN: 1-2x/day, 7 days/week x 1 week. Plan of care has been reviewed with the CLIENT DEVELOPMENT CONSULTANT providing the service under Physical Therapy direction. Initiate Physical Therapy intervention for pain management as needed, strengthening, bed mobility, transfers, gait, balance training, and use of assistive device TREATMENT CODE/TIME: 06943, 50144 33 minutes/ [id number] DISCHARGE RECOMMENDATION: HHPT Ankita Vidal, PT [facility]
--- NOTE | 2025-09-02 17:38 | PGE_ITS ---
Date of Service Date of service: 09/02/25 Time of Service: 17:38 Assessment and Plan Assessment and plan (1) Failure to thrive in adult: Status: Acute Assessment and plan: Secondary to crippling anxiety Continue physical therapy Continue medication adjustments (2) Anxiety: Status: Acute Assessment and plan: Continue adjusting medication to help alleviate symptoms Seroqeul 12.5 mg BID Clonodine 0.1 mg BID Mirtazapine 30 mg HS, citaloprom 20 mg daily (3) Ambulatory dysfunction: Status: Chronic Assessment and plan: Secondary to anxiety from fear of falling Fall precautions (4) Non-insulin dependent type 2 diabetes mellitus: Assessment and plan: Diabetic diet blood sugar checks with sliding scale ac/hs last A1C was 5.9 Resume outpatient medical therapy at discharge - continue to hold at this time (5) (HFpEF) heart failure with preserved ejection fraction: Assessment and plan: echo from 02/2025 Conclusion Normal left ventricular wall thickness and chamber size. Ejection fraction is 60 to 65%. Wall motion is normal Normal right ventricular size and function Mildly dilated left atrium. Normal right atrial size Aortic valve is sclerotic and probably trileaflet. There is no aortic stenosis or regurgitation Mitral annular calcification. Mild mitral regurgitation Estimated right ventricular systolic pressure is 22 mmHg on daily lasix appears euvolemic (6) Atrial fibrillation: Status: Chronic (7) Depression: (8) CKD (chronic kidney disease): Assessment and plan: at baseline avoid nephrotoxic drugs, renal dosing as needed. (9) Hypothyroidism (acquired): Assessment and plan: continue levothyroxine last TSH 6.05 08/13/25 recheck in 4-6 weeks, (10) Obesity (BMI 30.0-34.9): Assessment and plan: nutritional consultation outpatient with pcp (11) On deep vein thrombosis (DVT) prophylaxis: Status: Deleted Assessment and plan: enoxaparin daily discussed with Dr Reed Subjective Subjective Patient reports: no new complaints, feels better, tolerating liquids well, tolerating a regular diet, voiding w/o difficulty, flatus, bowel movement and afebrile; denies diarrhea, nausea, vomiting or shortness of breath Interval history since last seen: Working well with PT, seems less anxious. Hospital bed being delivered Tues or Wed. willing and eager to take her home with PT. Objective Last Vital Signs Temp 36.2 C L 09/02/25 08:04 Pulse 66 09/02/25 08:04 Resp 17 09/02/25 08:04 BP 116/65 09/02/25 08:04 Pulse Ox 97 09/02/25 08:04 Time Spent with Patient Time Spent with Patient: 25-34 minutes Time was spent: preparing to see the patient(eg.review tests), ordering medications,tests, procedures, referring, communicating with other health post acute care nurse practitioner, indepentently interpreting results, counseling the patient and care coordination
[2025-09-02 19:03] VITALS: BP 114/55; PULSE 67; RESP 16; TEMP 36.6; O2SAT 98
[2025-09-02] MEDS: Mirtazapine 15 MG TAB 30 MG PO (20:18)
[2025-09-02] MEDS: Simvastatin 20 MG TAB PO (20:18)
[2025-09-03] MEDS: Pantoprazole 40 MG TABCR PO (06:04)
[2025-09-03] MEDS: Levothyroxine 88 MCG TAB PO (06:04)
[2025-09-03 07:00] LABS: Abs Immature Grans 0.04 10^3/uL (0.0-0.06); HCT 32.1 % (36.0-46.0); HGB 10.4 g/dL (11.2-15.7); Immature Grans % 0.6 %; MCH 31.7 pg (27.0-33.0); MCHC 32.4 % (32.0-36.0); MCV 98 fL (80-95); MPV 10.4 fL (8.0-11.0); Platelet Count 139 10^3/uL (130-400); RBC 3.28 10^6/uL (3.93-5.22); RDW 15.3 % (11.7-14.6); RDW-SD 55.1 fL; WBC 6.68 10^3/uL (4.4-10.8)
[2025-09-03 07:27] LABS: Magnesium 1.7 mg/dL (1.6-2.6)
[2025-09-03 07:28] LABS: Anion Gap 10.3 mmol/L (3-11); BUN 39 mg/dL (9-23); CO2 26.7 mmol/L (20.0-31.0); Calcium 9.6 mg/dL (8.3-10.6); Chloride 106 mmol/L (98-107); Glucose 206 mg/dL (74-106); Potassium 4.0 mmol/L (3.5-5.1); Sodium 143 mmol/L (136-145)
[2025-09-03] MEDS: QUEtiapine 25 MG TAB 12.5 MG PO ×2 (07:35→17:56)
[2025-09-03] MEDS: Citalopram 20 MG TAB PO (07:35)
[2025-09-03] MEDS: Furosemide 20 MG TAB PO (07:35)
[2025-09-03] MEDS: Metoprolol CR 100 MG TABCR PO ×2 (07:35→21:26)
[2025-09-03] MEDS: Ferrous Gluconate 324 MG TAB PO (07:35)
[2025-09-03] MEDS: cloNIDine 0.1 MG TAB PO ×2 (07:35→21:26)
[2025-09-03] MEDS: Insulin Aspart 300 UNITS/3 ML PEN SC ×4 (07:36→21:26)
[2025-09-03] MEDS: Enoxaparin 30 MG/0.3 ML SYR SC (07:37)
[2025-09-03] MEDS: Nystatin POWDER 60 GM JAR TP ×2 (07:37→21:27)
[2025-09-03 08:36] VITALS: BP 115/54; PULSE 65; TEMP 35.6; O2SAT 99
--- NOTE | 2025-09-03 09:40 | PDOC.CMPRO ---
Date of service: 09/03/25 Time of Service: 09:40 Care Management Progress Note Progress Note Text Progress Note Text: Arlene has been doing really well. She has been ambulating well and is much more talkative. She is slated for discharge tomorrow. The hospital bed is being delivered today, and Quirino has already cleaned out the space in the house for it. Arlene is aware of the planned discharge for tomorrow, and is very much looking forward to going home. She is very excited to see her dog, especially. Arlene will have continued home health services of RN and PT. OT will be added until her [facility] caregivers are in place. CM spoke with Dorinda this morning, Arlene's CM at the [facility]. She was notified of the planned discharge for tomorrow and she stated that [facility] was working on getting Arlene some increased services. FATOUMATA spoke with Sirisha at [facility]. Arlene will be receiving personal care support in the home on Mondays-, Tuesdays, Tuesday-, Tuesday-. SUPERVISOR RESPIRATORY will be out on Tuesday for first visit. Quirino was in later in the day. He and Arlene were made aware of the hours for Arlene's caregivers. He will bring in Arlene's wheelchair tomorrow for her transportation home. He stated today that he feels that this time [facility] discharge will stick. Discharge Potential Discharge Needs: PCP F/U Appt Anticipated Barriers to Discharge: None Identified Patient/Family Education Needs: Review discharge instructions, discuss Ask Me Three Transportation: RCT RCT Transportation: Wheel chair van Plan: It is anticipated that Arlene will discharge home tomorrow with continued services of SN and PT with the addition of OT. Her [facility] caregivers will start on Tuesday as above She will f/u with her PCP and continue per her plan of care. Arlene and Quirino are fully aware of the plan and are in agreement with it. CM will continue to follow. Social Determinants of Health Screening Will the Patient Participate in the Screening?: Unable to obtain
--- NOTE | 2025-09-03 11:32 | PTTR_ITS ---
PT Notes Visit Reasons: Failure to Thrive, Ambulatory Dysfunction Inpatient Physical Therapy Treatment Note [facility] Date: 09/03/25 SUBJECTIVE: Pt stated they were feeling well, a little tired but wanting to go for a walk. Pt reported she wanted to go home, and misses her dog. During ambulation Pt reported she needed to sit down, PT provider her with a wheelchair to sit. pm session: Pt stated they were feeling well, Pt wanted to wait for her before she had PT. PT came back and arrived shortly after. . stated the bed was delivered. OBJECTIVE: General observations: Pt sitting in recliner watching tv. PAIN: No pain reported VITALS: Monitored by Nursing Therapeutic Activities ([id number][]): Direct one-on-one instruction in dynamic activities to improve functional performance. ? BED MOBILITY/TRANSFERS?Sit to stand: w/FWW CGA (needed a couple of attempts per each trial during ambulation)x 4 trials Ambulation: Pt ambulated a total of 250 feet w/FWW CGA and SBA following with wheelchair. Pt needed 2 rest periods one after 75 feet then second after `45 feet each rest only lasting about a minute with pt noted to self initiate returning to walking. ? Therapeutic Exercises: BLE Ankle pumps: 1x10 Seated Marches: 1x10 LAQ: 1x10 Heel Raises: 1x10 ?PM session Therapeutic Activities ([id number]): Direct one-on-one instruction in dynamic activities to improve functional performance. ? BED MOBILITY/TRANSFERS?Sit to stand: w/FWW CGA x 2 trials from chair and wheelchair stand to sit : CGA from FWW to chair or wheelchair . intermittently unable to reach back for surface however able to control descent to surface with BUE on FWW. Ambulation: Pt ambulated 150 feet w/FWW CGA and SBA following with wheelchair. Pt needed 1 rest periods only lasting about 2 minutes. ? ASSESSMENT:? Pt was able to sit to stand and ambulate. Pt continues to ?stick? to the commode/bed/wheelchair. PT will help the pt ?unstick? before attempting to stand. Pt shows improvement and continues to be aware when she needed to sit during ambulation. These sessions pt ambulated further than previous sessions 250 feet with 2 rest periods for the morning session, and 150 feet w/FWW CGA for the PM session. Pt continues to have decreased activity tolerance and needs rest during ambulation. Pt continues to need a FWW for ambulation to help maintain dynamic balance. Pt continues to need verbal cueing for direction and AD mobility to avoid objects. Pt is showing the ability to ambulate in her home with an FWW. PT instructed proper guarding techniques and how to provider pt directions to help her navigate. able to return demonstration of proper techniques with cues to not provide too much assistance with standing to allow her to stand while knowing it may take several attempts.As well as proper cues for aligning Arlene with chair/commode prior to sitting. ?Anticiptate discharge to home on 09/04/25 with services. PLAN: 1-2x/day, 7 days/week x 1 week. Plan of care has been reviewed with the CAN MACHINE OPERATOR providing the service under Physical Therapy direction. Initiate Physical Therapy intervention for pain management as needed, strengthening, bed mobility, transfers, gait, balance training, and use of assistive device ?TREATMENT CODE/TIME: Am session:51156/ 9:35am-10:08am for 2 units, Pm session: 27340/3:01pm-3:37pm for 2 units DISCHARGE RECOMMENDATION: HHPT Written By: KHUSHBU Alfaro Supervised By: Ankita Vidal, PT
[2025-09-03 20:59] VITALS: BP 138/48; PULSE 70; RESP 16; TEMP 36; O2SAT 97
[2025-09-03] MEDS: Mirtazapine 15 MG TAB 30 MG PO (21:25)
[2025-09-03] MEDS: Simvastatin 20 MG TAB PO (21:26)
[2025-09-04] MEDS: Levothyroxine 88 MCG TAB PO (06:03)
[2025-09-04 08:01] VITALS: BP 121/79; PULSE 67; RESP 17; TEMP 36.5; O2SAT 99
[2025-09-04] MEDS: Metoprolol CR 100 MG TABCR PO (08:42)
[2025-09-04] MEDS: Pantoprazole 40 MG TABCR PO (08:42)
[2025-09-04] MEDS: cloNIDine 0.1 MG TAB PO (08:42)
[2025-09-04] MEDS: Citalopram 20 MG TAB PO (08:42)
[2025-09-04] MEDS: Enoxaparin 30 MG/0.3 ML SYR SC (08:42)
[2025-09-04] MEDS: Ferrous Gluconate 324 MG TAB PO (08:42)
[2025-09-04] MEDS: Nystatin POWDER 60 GM JAR TP (08:43)
[2025-09-04] MEDS: Furosemide 20 MG TAB PO (08:43)
[2025-09-04] MEDS: QUEtiapine 25 MG TAB 12.5 MG PO (08:43)
[2025-09-04] MEDS: Insulin Aspart 300 UNITS/3 ML PEN SC ×2 (08:43→12:01)
--- NOTE | 2025-09-04 10:15 | DSE_ITS ---
Date of service: 09/04/25 Time of Service: 10:16 DS: Diagnosis Discharge Diagnosis (1) Failure to thrive in adult: Status: Acute (2) Anxiety: Status: Acute (3) Ambulatory dysfunction: Status: Chronic (4) Atrial fibrillation: Status: Chronic Discharge Plan Disposition Patient Disposition: Home W/Home Health Services Condition: Poor Discharge Details Reason For Visit: Failure to Thrive, Ambulatory Dysfunction Admit Date/Time: 08/26/25 18:03 Admit Provider: Lucius Dent Attending Provider: Lucius Dent Primary Care Provider: Geovanna Anders Hospital Course Hospital Course: Past Medical History: Type 2 diabetes, CHF, atrial fibrillation, hypertension, hypothyroidism, recurrent UTIs, ambulatory dysfunction, metastatic breast cancer status post lumpectomy, mastectomy, radiation, and skull resection. Hospital Course: Ms. Wilder was initially admitted on 08/01 for symptomatic UTI; urine culture grew E. coli. She completed a course of antibiotics with clinical improvement. Physical Therapy evaluated her and recommended home health PT versus SNF placement. She was discharged home with her , who felt he could care for her, on 08/04 with home health services. Declined SNF. She returned on 08/08 with worsening weakness and inability to ambulate. She was discharged again on 08/09 with continued home health services. The patient presented again on 08/13 for persistent inability to ambulate and significant anxiety related to fear of falling. She remained hospitalized for further PT and medication adjustments for anxiety. Physical therapy noted that her mobility was significantly impaired by anxiety; however, her strength and functional performance improved over the course of admission. By discharge, PT determined she was safe to return home with her and home health support. Pertinent Findings: * Vitals stable throughout admission. * CBC and CMP reassuring aside from chronic anemia. * UA without evidence of UTI during this admission. * CT abdomen/pelvis and lumbar spine: no acute findings. * Chest X-ray: negative. * No fever, respiratory symptoms, leukocytosis, or hypoxia observed. * Patient has chronic wound on the top of her head that should be followed up by PCP. During hospitalization, the patient?s oral intake improved and her anxiety and mentation stabilized. She demonstrated the ability to ambulate safely with ass istance. Disposition: Medically stable for discharge home with her . Home health services arranged. Continue PT and anxiety management as outpatient. Recommendations for Follow Up Recommended tests to be ordered by follow up provider: Patient has chronic wound on the top of her head that should be followed up Home Meds and New Rx's Prescriptions: Discontinued gabapentin 100 mg Capsule 100 mg PO TID Qty: 90 0RF No Action citalopram 20 mg tablet 20 mg PO DAILY metoprolol succinate 100 mg Tablet Extended Release 24 Hr 100 mg PO BID Qty: 0 0RF mirtazapine 30 mg tablet 30 mg PO HS Patient Comments: TAKE ONE TABLET BY MOUTH EVERY DAY metformin 500 mg tablet 1,000 mg PO BID Patient Comments: TAKE TWO TABLETS BY MOUTH TWICE A DAY levothyroxine 88 mcg tablet 88 mcg PO DAILY Patient Comments: TAKE ONE TABLET BY MOUTH EVERY MORNING glipizide 10 mg Tablet 10 mg PO BID simvastatin 20 mg tablet 20 mg PO HS acetaminophen 325 mg Tablet 650 mg PO Q6H PRN PRNQty: 30 0RF furosemide 20 mg Tablet 20 mg PO DAILY Qty: 60 1RF ferrous gluconate 324 mg (38 mg iron) Tablet 324 mg PO DAILY Qty: 60 1RF Discharge Instructions Instructions: Generalized Weakness (DC), Clonidine, Quetiapine Additional Instructions: Your strength, mobility, and anxiety improved during your hospital stay. Ph ysical Therapy feels you are safe to return home with assistance from your and home health services. Medications * Continue all home medications as previously prescribed. * Take anxiety medications exactly as directed. Do not skip doses or take extra doses. * If you have any questions about your medications, call your primary care provider (PCP) or your home health nurse. Activity * Use your walker or assistive devices at all times. * Do not walk without assistance until cleared by Home Health Physical Therapy * Move slowly from lying to sitting and from sitting to standing. * Avoid rushing?this helps prevent falls. * Rest as needed, but try to stay up and moving several times a day. Fall Prevention * Keep pathways clear of clutter. * Wear supportive shoes with good traction. * Use night-lights in hallways and the bathroom. * Sit on the edge of the bed for 1?2 minutes before standing. Home Health Home health nurses and physical therapy will visit you at home to help with mobility, safety, and strengthening exercises. Scalp wound; clean with sterile saline , dry and change Mepilex to scalp daily Diet * Eat regular meals and stay hydrated. When to Call Your Doctor Call your PCP or return to the emergency room if you experience: * New or worsening weakness * Falls or near-falls * Fever, chills, or symptoms of a urinary tract infection * New confusion or significant change in thinking * Chest pain, shortness of breath, or heart palpitations * Inability to walk even with help Follow-Up * Follow up with your primary care provider within 1 week. Stand Alone Forms: Portal Information, Nursing Discharge Form Referrals: Geovanna Anders [Primary Care Provider, Medicine] Referral Note: 1 week post prolonged hospitalization for anxiety; ambulatory dysfunction - debilitating fear of falling. PCP office will call you to set up a follow up appointment. If you don't hear from them, please give them a call. Activity:: Activity as Tolerated Equipment/Supplies:: Walker Diet:: As Tolerated Discharge Orders Discharge Orders: Discharge Order (Routine); Ordered 09/04/25 Ordered By: Talia Reece Discharge Data Discharge Date/Time-TO BE ENTERED AT DEPARTURE: 09/04/25 13:23 DS: Summary Time Spent with Patient providing and/or coordinating discharge services: Greater than 30 minutes Status at Discharge Functional status at discharge: uses cane/walker Overall status at discharge: patient is not back to baseline Mental Status: mental status grossly normal Speech and Movement: speech and movement normal Mood: anxious mood Affect: anxious affect Quality:SDOH Health Related Social Needs: Health related social needs daily activities Exam Const General: cooperative, comfortable, no acute distress and frail appearing Nutritional Appearance: obese Orientation: alert, awake and oriented x3 HENMT Head: other (old well healed surgical scar across top of head) Mouth: moist mucous membranes abnormal (slightly dry) Neck Neck: no JVD Resp Effort & Inspection: normal respiratory effort Auscultation: diminished lung sounds bilaterally and no wheezes Cardio Rate: regular rate Rhythm: regular rhythm GI Inspection: normal to inspection Palpation: soft Skin General skin exam: other (Mepilex intact to the top of her head no surrounding erythema) Neuro General: patient alert, patient awake and patient oriented x3 Extrem General: normal to inspection, full ROM and edema (lower) Laterality: bilateral Psych Mental Status: mental status grossly normal Speech and Movement: speech and movement normal Mood: anxious mood Affect: anxious affect DS: Data Vitals/I&O Vitals and I&O: Vital Signs Temperature 36.5 C 09/04/25 08:01 Temperature Source Temporal Artery Scan 09/04/25 08:01 Pulse 67 09/04/25 08:01 Respiratory Rate 17 09/04/25 08:01 Blood Pressure 121/79 09/04/25 08:01 Blood Pressure Mean 93 09/04/25 08:01 Pulse Oximetry 99 09/04/25 08:01 Oxygen Delivery Method Room Air 09/04/25 08:01 Oxygen Flow Rate 0 09/04/25 08:01 Pain Level 0 09/04/25 08:01 Comment at rest / sitting up in chair 09/01/25 07:54 Intake & Output 09/03/25 09/03/25 09/04/25 11:59 23:59 11:59 Intake Total 240 / 240 Output Total 400 / 400 400 / 400 Balance -160 / -160 -400 / -400 Weight 93.3 kg Intake: Oral 240 / 240 Output: Urine 400 / 400 400 / 400 Other: Urine Color Yellow Yellow Yellow Urine Appearance Clear Clear Clear Urine Odor Normal Normal Normal Comment pt voids in bedside commode. pt stood at bedside and transfered to the commode with one assist Stool Size Large Large Stool Characteristics Formed Formed Brown Data Completed and Pending Pending Labs at Discharge: 09/03/25 06:45 WBC 6.68 RBC 3.28 L Hgb 10.4 L Hct 32.1 L MCV 98 H MCH 31.7 MCHC 32.4 RDW 15.3 H Plt Count 139 MPV 10.4 Immature Gran % 0.6 Neutrophils % 68.4 Lymphocytes % 16.2 Monocytes % 4.8 Eosinophils % 9.4 Basophils % 0.6 Nucleated RBC % 0.0 Absolute Neutrophils 4.57 Absolute Lymphocytes 1.08 L Absolute Monocytes 0.32 Absolute Eosinophils 0.63 Absolute Basophils 0.04 Sodium 143 Potassium 4.0 Chloride 106 Carbon Dioxide 26.7 Anion Gap 10.3 BUN 39 H Creatinine 1.6 H Est GFR (CKD-EPI 2020) 30.00 Glucose 206 H Calcium 9.6 Magnesium 1.7 PFSH All Active Problems (Updated 09/04/25 @ 13:01 by Talia Reece NP) Advanced care planning/counseling discussion (Acute) Palliative care patient (Acute) Non-healing ulcer (Acute) Dehydration (Acute) Atrial fibrillation (Chronic) Anxiety (Acute) Failure to thrive in adult (Acute) Debility (Acute) Hypotension (Acute) NICOLE (acute kidney injury) (Acute) Ambulatory dysfunction (Chronic) Acute UTI (Acute) General weakness (Acute) Hx of falling (Acute) Medical History (HFpEF) heart failure with preserved ejection fraction Obesity (BMI 30.0-34.9) Intertriginous candidiasis CKD (chronic kidney disease) Depression Non-insulin dependent type 2 diabetes mellitus Hypothyroidism (acquired) CHF (congestive heart failure) related to Hg 5.7. Resolved. Nl echo Acute pain of right hip Acute UTI Osteopenia Glaucoma Trochanteric bursitis Atrial fibrillation with RVR Related hg 5.7, isolated Anemia Leucocytosis Acute CHF DVT prophylaxis Abnormal finding on breast imaging Goiter Pleural effusion Acute dyspnea Squamous cell cancer of scalp and skin of neck Breast cancer Hypercholesterolemia HTN (hypertension) Diabetes mellitus Surgical History History of thoracentesis (~03/2025) S/P skin and subcutaneous tissue surgery S/P breast lumpectomy Social History Smoking/Tobacco Use Status: Never Smoking risk assessment performed?: Yes Alcohol Intake: never Drug use: Never Substance use type: does not use Housing: house Do you feel safe at home: Yes Do you feel safe in your relationship?: Yes Time Spent with Patient Time Spent with Patient: 45-69 minutes Time was spent: preparing to see the patient(eg.review tests), ordering medications,tests, procedures, referring, communicating with other health animal care provider, indepentently interpreting results, counseling the patient and care coordination
--- NOTE | 2025-09-04 10:21 | CMDISCH_ITS ---
Date of service: 09/04/25 Time of Service: 13:39 LACE Index Scoring Tool Questions: Length of Stay (in days): 7 - 13 Was the patient admitted via the E.D.?: Yes E.D. Visits: 3 Answers: Total Score: 11 Risk of Readmission: High Risk Care Management Discharge Plan Reason for Hospitalization: Failure to Thrive, ambulatory dysfunction Discharge Plan: Arlene's plan at this time is to discharge home with resumption of [facility] RN/PT and add OT/ON SITE PROPERTY MANAGER services and new caregiver supports to start on Tuesday. Quirino is planning to resume the role as primary caregiver. A hospital bed has been delivered through [employer] and delivered to Arlene's home. Arlene will transport via [employer] W/C van with patients own wheelchair and per Quirino, no lift assist required. Arlene will be receiving personal care support through on Mondays-, Tuesdays-, Tuesday-, Tuesday-. SEATER GRINDER will be out on Tuesday for first visit. CM emailed Dorinda at [facility] regarding Riaz for [facility] benefits and to notify her of this patients discharge. It is recommended she follow up with her community providers and discharge plan of care. Patient/Family Education Needs: review of discharge instructions, activity, limitations, and plan of care. Discuss ask me three. SDOH Health Related Social Needs: Health related social needs daily activities
--- NOTE | 2025-09-04 11:18 | PT.INTREAT ---
PT Notes Visit Reasons: Failure to Thrive, Ambulatory Dysfunction Inpatient Physical Therapy Treatment Note [facility] Date: 09/04/25 PRECAUTIONS: Standard, Fall, anxiety and fear of movement SUBJECTIVE: Pt stated they were feeling well. Pt reported missing their dog, and excited to go home today. brought in her w/c from home with ELR OBJECTIVE: General observation: ? Pt was wake and smiling when PT entered. Pt continue to have right sided neglect during ambulation. PAIN: No pain reported VITALS: Monitored by Nursing Therapeutic Activities ([id number]): Direct one-on-one instruction in dynamic activities to improve functional performance. ? BED MOBILITY/TRANSFERS? Stand-sit: Pt sometimes struggles to reach back with hand, and has difficult time lowering herself down. Stand to sit to wheel chair: CGA of 1 w/FWW Stand to sit to Recliner: CGA of 1 w/FWW Sit to stand: From recliner: CGA of 1 w/FWW From Wheelchair: CGA of 1 w/FWW ?? ? Ambulation: Pt ambulated 150 feet w/FWW CGA and SBA following with wheelchair. Pt needed one rest period that lasted about two minutes. Pt reported needing a rest and PT helped pt sit in the wheelchair. ASSESSMENT:? Pt was able to ambulate 150 feet today with FWW CGA and SBA of 1 following with a wheelchair with one rest period. Pt was able to scootch themselves forward in the wheelchair/recliner without cueing to provide optimal body mechanics to stand from seat. During ambulation pt needed verbal and tactile cueing to prevent drifting to the left side. Pt also needed multiple verbal cueing for directions. Specifically, the addressing objects on the right side of pt body. When pt got to her room DPTS told the patient she will sit down in her recliner (which is on the right side). Pt started heading towards the stationary chair on the left side. PT and DPTS helped navigate the pt to the recliner. was informed that pt still has a slight neglect to the right side. PT had the patient read a sentence on a paper, and pt was able to with out missing any words. However, the pt read the paper right Infront of herself. Pt continues to need a walker, with decreased rodolfo, step height and step length. Pt would benefit from skilled HHPT to help pt in her home, and address decreased activity tolerance. ?PLAN: 1-2x/day, 7 days/week x 1 week. Plan of care has been reviewed with the HEAD BANDER AND LINER OPERATOR providing the service under Physical Therapy direction. Initiate Physical Therapy intervention for pain management as needed, strengthening, bed mobility, transfers, gait, balance training, and use of assistive device ?TREATMENT CODE/TIME: 00405/9:17-9:41 for a total of 24 minutes DISCHARGE RECOMMENDATION: HHPT Written By KHUSHBU Alfaro Supervised By Ankita Vidal PT
--- NOTE | 2025-09-04 13:10 | PDOC.HHF2F ---
Date of service: 09/04/25 Time of Service: 13:10 Home Health Referral Home Health Orders Clinical synopsis of why skilled professionals are needed: Ms. Wilder was initially admitted on 08/01 for symptomatic UTI; urine culture grew E. coli. She completed a course of antibiotics with clinical improvement. Physical Therapy evaluated her and recommended home health PT versus SNF placement. She was discharged home with her , who felt he could care for her, on 08/04 with home health services. Declined SNF. She returned on 08/08 with worsening weakness and inability to ambulate. She was discharged again on 08/09 with continued home health services. The patient presented again on 08/13 for persistent inability to ambulate and significant anxiety related to fear of falling. She remained hospitalized for further PT and medication adjustments for anxiety. Physical therapy noted that her mobility was significantly impaired by anxiety; however, her strength and functional performance improved over the course of admission. By discharge, PT determined she was safe to return home with her and home health support. Pertinent Findings: Vitals stable throughout admission. CBC and CMP reassuring aside from chronic anemia. UA without evidence of UTI during this admission. CT abdomen/pelvis and lumbar spine: no acute findings. Chest X-ray: negative. No fever, respiratory symptoms, leukocytosis, or hypoxia observed. Patient has chronic wound on the top of her head that should be followed up by PCP. During hospitalization, the patient?s oral intake improved and her anxiety and mentation stabilized. She demonstrated the ability to ambulate safely with assistance. Disposition: Medically stable for discharge home with her . Home health services arranged. Continue PT, OT, ARTS EDUCATION TEACHER and RN for anxiety management as outpatient. Medical diagnosis necessitation home health referral: Debilitating fear of falling; anxiety, ambulatory dysfunction; scalp wound Registered Nurse: Check all that apply Instruct on new or changed medication(s)/assess compliance: Ordered Assess for exacerbation of medical condition, instruct patient/caregivers on signs and symptoms to report for early detection: Ordered Assess wound for signs and symptoms of infection, instruct on wound care and/or provide skilled wound care consisting of: Scalp wound Other: Recommendation for adjustment of anxiety medication prn Physical Therapist: Check all that apply Increase strength & endurance for safe mobility at home: Ordered To design/establish home maintenance program: Ordered Fall reduction therapy program for patient with history of frequent falls: Ordered Home safety evaluation and teaching/gait training including stair management (if applicable): Ordered Occupational Therapist: Evaluate and treat for patient unable to perform ADL/IADL/self-care: Ordered Direct Chill Caster: Assist with community resources: Ordered Assist with photographic platemaker care planning: Ordered Home Bound Status Requires the aid of supportive device (check all that apply): Walker Patient has a condition such that leaving home is medically contraindicated (Describe): Unable to ambulate without device or one person assisting her. She requires stand by assistance. Encounter Date and Reason: I certify that a FTF encounter for this patient was performed on September 04, 2025 and that such encounter was related to the primary reason the patient requires home health services. The encounter was conducted in the following manner: By me as the certifying physician, AGRICULTURAL EXTENSION SPECIALIST, PA or By an inpatient physician, AGRICULTURAL EXTENSION SPECIALIST or PA during an inpatient stay who communicated findings to me, Certification And Authentication I certify that I composed the above information based on my clinical judgment relating to this patient's medical condition and, if applicable, clinical findings communicated to me by the NPP or inpatient physician who performed the FTF encounter. Name of Provider that will be monitoring home health services: Geovanna Anders
== END 2025-09-04 13:23 | disposition home health service (06) | DRG 641 ==
PROVIDERS: Admitting Provider Family Medicine; PCP Nurse Practitioner Family; Responsible Provider Nurse Practitioner Family; Visit Provider Family Medicine
DX: R62.7 Adult failure to thrive (principal); I50.30 Unspecified diastolic (congestive) heart failure; N18.4 Chronic kidney disease, stage 4 (severe); I13.0 Hypertensive heart and chronic kidney disease with heart failure and stage 1 through stage 4 chronic kidney disease, or unspecified chronic kidney disease; R26.2 Difficulty in walking, not elsewhere classified; E86.0 Dehydration; F41.9 Anxiety disorder, unspecified; E11.9 Type 2 diabetes mellitus without complications; B37.2 Candidiasis of skin and nail; R82.90 Unspecified abnormal findings in urine; I48.0 Paroxysmal atrial fibrillation; E11.22 Type 2 diabetes mellitus with diabetic chronic kidney disease; E03.9 Hypothyroidism, unspecified; E66.811 Obesity, class 1; Z79.899 Other long term (current) drug therapy; F32.A Depression, unspecified; Z68.32 Body mass index [BMI] 32.0-32.9, adult; Z85.3 Personal history of malignant neoplasm of breast; L98.499 Non-pressure chronic ulcer of skin of other sites with unspecified severity; Z87.440 Personal history of urinary (tract) infections; Z66 Do not resuscitate; R41.3 Other amnesia; I95.9 Hypotension, unspecified; E83.42 Hypomagnesemia; R53.1 Weakness; Z91.81 History of falling; Z79.84 Long term (current) use of oral hypoglycemic drugs; Z74.09 Other reduced mobility; Z73.89 Other problems related to life management difficulty
CPT/HCPCS: 00123; 80048; 97110; 97530; 99316; 83735; 85025; 99306; 99308; J1650; J1815

== ENCOUNTER 2025-09-08 11:23 | Observation (INO) | payer MEDICARE, MEDICAID, SELFPAY ==
[2025-09-08] VITALS (40 sets, daily range): BP systolic 117–194; BP diastolic 56–108; PULSE 69–107; RESP 10–23; TEMP 36.6–36.8; O2SAT 89–100
--- NOTE | 2025-09-08 11:15 | RT.EKG_ITS ---
APPROVED REPORT Exam: Resting ECG Reason for Exam: weakness Patient Location: E HR:70 bpm ECG Measurements Heart Rate 70 AXIS RI 174 P 69 QRSd 84 QRS 7 QT 396 T 27 QTc 429 Conclusion Sinus rhythm, rate 70 No interval abnormalities No STEMI No significant changes from priors
--- NOTE | 2025-09-08 11:37 | W.ED.GENAD ---
Discharge Plan Disposition Patient Disposition: Admit to [facility] Condition: Stable Discharge Details Clinical Impression: Failure to thrive in adult, Debility, Anxiety Admit Date/Time: 09/08/25 14:22 Admit Provider: Geoffrey Foster Attending Provider: Geoffrey Foster Primary Care Provider: Geovanna Anders ED Provider: Eve Chavez [facility] General Mode of arrival: EMS. Date/Time Provider Initiated Documentation: 09/08/25 11:30. Limitations to Documentation: no limitations. Information obtained by: patient, EMS and old records reviewed. HPI Narrative: This is an 79-year-old female patient with a past medical history significant for generalized weakness, falling, history of urinary tract infection, and a history of multiple admissions for failure to thrive and anxiety preventing adequate mobility, presenting for evaluation of generalized weakness. The patient was discharged from the hospital 4 days ago with increased community supports including PT and home health. The patient's is her primary caregiver, and summoned EMS today because the patient has become increasingly weak. The patient reports that she feels largely at her baseline, but admits to having significant difficulty with ambulating even with her walker at home. EMS reports that they were pulled aside by the , who was quite tearful and stated that he felt like he was not able to safely care for his in the home environment anymore. He states that he has physical limitations when it comes to helping her transfer and move. The patient reports no recent falls or injuries, no fever, denies headaches, chest pain, abdominal pain. She has not taken her morning medications yet but has otherwise been taking her medications without change. Denies nausea or vomiting, has been maintaining oral intake. I reviewed the most recent discharge summaries and discussed the patient's case with care management, who is familiar with her case. She reports that the patient would meet criteria for long-term care facility, historically this has been offered and the patient and her family were quite resistant, but if they had changed their mind and were desiring of placement that would be a reasonable path forward. Related Data Home Medications ?Medication ?Instructions ?Recorded ?Confirmed glipizide 10 mg tablet 10 mg PO BID 07/12/21 09/08/25 metoprolol succinate 100 mg 100 mg PO BID #0 tabs 05/08/22 09/08/25 tablet,extended release 24 hr citalopram 20 mg tablet 20 mg PO DAILY 12/30/22 09/08/25 simvastatin 20 mg tablet 20 mg PO HS 12/30/22 09/08/25 acetaminophen 325 mg tablet 650 mg (2 x 325 mg) PO Q6H PRN PRN 06/20/23 09/08/25 #30 tabs ferrous gluconate 324 mg (38 mg 324 mg PO DAILY #60 tabs 07/12/23 09/08/25 iron) tablet furosemide 20 mg tablet 20 mg PO DAILY #60 tabs 07/12/23 09/08/25 mirtazapine 30 mg tablet 30 mg PO HS 08/01/25 09/08/25 levothyroxine 88 mcg tablet 88 mcg PO DAILY 08/02/25 09/08/25 metformin 500 mg tablet 1,000 mg PO BID 08/02/25 09/08/25 Previous Rx's ?Medication ?Instructions ?Recorded metoprolol succinate 100 mg 100 mg PO BID #0 tabs 05/08/22 tablet,extended release 24 hr acetaminophen 325 mg tablet 650 mg (2 x 325 mg) PO Q6H PRN PRN 06/20/23 #30 tabs ferrous gluconate 324 mg (38 mg 324 mg PO DAILY #60 tabs 07/12/23 iron) tablet furosemide 20 mg tablet 20 mg PO DAILY #60 tabs 07/12/23 Allergies Allergy/AdvReac Type Severity Reaction Status Date / Time doxazosin (From Cardura) Allergy Intermediate Unknown Verified 09/08/25 11:29 sitagliptin (From Januvia) Allergy Intermediate Unknown Verified 09/08/25 11:29 famotidine Allergy Unknown Other (See Verified 09/08/25 11:29 Comment) empagliflozin (From Allergy Unknown Verified 09/08/25 11:29 Jardiance) General Stated Complaint: GenMedical ZAKIA: 3 Exam Narrative Exam Narrative: Gen: Awake and alert, in no apparent distress HEENT: Non-icteric sclera. Top of scalp with a dressing in place for a chronic wound Neck: Supple Lungs: No apparent respiratory distress, normal respiratory effort. Lung sounds clear and equal bilaterally without wheezes, rhonchi, rales CV: Appears well perfused, heart with regular rate and rhythm, strong distal pulses Abdomen: Non-distended, soft, nontender to palpation without rigidity, rebound, or guarding. MSK: Moves 4 extremities without apparent limitation in ROM. No peripheral edema Skin: Visualized skin without rashes, cyanosis. Neuro: Normal Gait, no obvious focal deficits or facial asymmetry. Speaks in full, clear sentences. Psych: Appropriate for situation. Course Vital Signs Vital signs: Vital Signs Temperature 36.8 C 09/08/25 11:24 Pulse 73 09/08/25 11:24 Respiratory Rate 18 09/08/25 11:24 Blood Pressure 171/94 H 09/08/25 11:24 Pulse Oximetry 100 09/08/25 11:24 Temperature 36.8 C 09/08/25 11:29 Temperature Source Oral 09/08/25 11:29 Pulse 73 09/08/25 11:29 Respiratory Rate 18 09/08/25 11:29 Blood Pressure 171/94 H 09/08/25 11:29 Pulse Oximetry 100 09/08/25 11:29 Medical Decision Making This is AN 79-year-old female patient presenting for evaluation of generalized weakness. My differential includes but is not limited to failure to thrive, certainly considered poor mobility and ambulatory dysfunction given her history of same. Considered metabolic electrolyte derangements, dehydration, anemia, kidney and liver injury. No chest pain to suggest ACS, considered persistent UTI though the patient is without symptoms of same at this time. No trauma to suggest intracranial abnormalities, no focal neuro complaints to suggest CVA or intracranial mass. I will obtain labs to include CBC, CMP, magnesium, troponin, and urinalysis. Will obtain an EKG to evaluate for ischemia or arrhythmia. At this time I do not see an indication to proceed with advanced imaging. - EKG obtained, showing a normal sinus rhythm without evidence of ischemia, interval abnormality, or ectopy. There are no significant changes when compared to priors. Laboratory studies were reviewed by myself, show a no leukocytosis, anemia, or thrombocytopenia. Chemistry panel shows a very slight hyperkalemia to 5.2, though the patient does have an extended tourniquet time given difficulty establishing an IV. No EKG changes to suggest that this patient requires acute intervention. BUN and creatinine are very slightly elevated to 25 and 1.3 respectively, which is actually improved compared to her baseline. No evidence of liver function abnormality, troponin was negative and without interval increase on 1 hour delta recheck. UA obtained and shows positive nitrites and moderate leukocyte esterase, the patient is asymptomatic so we will send this for culture and hold on antibiosis after discussion with the hospitalist. I did discuss this patient's case with care management, she would be able to be placed in a care facility if she is amenable, and at this time her and her states that they are recognizing that they are unable to manage her care at home despite maximal outpatient resources available to them. For this reason I reached out to the hospitalist who is graciously accepted this patient for admission. She remained hemodynamically appropriate while under my care, though did become quite anxious and upset, requiring AN oral dose of Ativan, 0.5 mg. She otherwise was transferred to the hospitalist service without acute incident. Eve Chavez MD Quality:SDOH Health Related Social Needs: Health related social needs daily activities PFSH All Active Problems (Updated 09/08/25 @ 14:26 by Eve Chavez MD) Anxiety (Chronic) Failure to thrive in adult (Acute) Debility (Acute) Hypotension (Acute) NICOLE (acute kidney injury) (Acute) Ambulatory dysfunction (Chronic) Acute UTI (Acute) General weakness (Acute) Hx of falling (Acute) Medical History (HFpEF) heart failure with preserved ejection fraction Obesity (BMI 30.0-34.9) Intertriginous candidiasis CKD (chronic kidney disease) Depression Non-insulin dependent type 2 diabetes mellitus Hypothyroidism (acquired) CHF (congestive heart failure) related to Hg 5.7. Resolved. Nl echo Acute pain of right hip Acute UTI Osteopenia Glaucoma Trochanteric bursitis Atrial fibrillation with RVR Related hg 5.7, isolated Anemia Leucocytosis Acute CHF DVT prophylaxis Abnormal finding on breast imaging Goiter Pleural effusion Acute dyspnea Squamous cell cancer of scalp and skin of neck Breast cancer Hypercholesterolemia HTN (hypertension) Diabetes mellitus Surgical History History of thoracentesis (~03/2025) S/P skin and subcutaneous tissue surgery S/P breast lumpectomy Social History Smoking/Tobacco Use Status: Never Smoking risk assessment performed?: Yes Alcohol Intake: never Drug use: Never Substance use type: does not use Housing: house Do you feel safe at home: Yes Do you feel safe in your relationship?: Yes
--- NOTE | 2025-09-08 11:54 | NUR.NOTE ---
Nursing Note: Per , ok to throw away personal sheet patient came in with
[2025-09-08 12:16] LABS: Abs Immature Grans 0.03 10^3/uL (0.0-0.06); HCT 36.6 % (36.0-46.0); HGB 11.7 g/dL (11.2-15.7); Immature Grans % 0.3 %; MCH 31.4 pg (27.0-33.0); MCHC 32.0 % (32.0-36.0); MCV 98 fL (80-95); MPV 9.9 fL (8.0-11.0); Platelet Count 172 10^3/uL (130-400); RBC 3.73 10^6/uL (3.93-5.22); RDW 14.7 % (11.7-14.6); RDW-SD 53.3 fL; WBC 9.30 10^3/uL (4.4-10.8)
[2025-09-08 12:33] LABS: Troponin I 6 ng/L (<35)
[2025-09-08 12:36] LABS: Magnesium 1.8 mg/dL (1.6-2.6)
[2025-09-08 12:37] LABS: ALT 13 U/L (10-49); AST 20 U/L (<34); Albumin 4.2 g/dL (3.4-5.0); Alkaline Phosphatase 149 U/L (46-116); Anion Gap 9.7 mmol/L (3-11); BUN 25 mg/dL (9-23); Bilirubin, Total 0.40 mg/dL (0.2-1.2); CO2 25.3 mmol/L (20.0-31.0); Calcium 10.0 mg/dL (8.3-10.6); Chloride 108 mmol/L (98-107); Glucose 116 mg/dL (74-106); Potassium 5.2 mmol/L (3.5-5.1); Sodium 143 mmol/L (136-145); Total Protein 7.7 g/dL (5.7-8.2)
[2025-09-08] MEDS: LORazepam 0.5 MG TAB PO (12:40)
[2025-09-08 13:31] LABS: Troponin I 5 ng/L (<35)
[2025-09-08 14:11] LABS: Glucose Negative (Negative)
--- NOTE | 2025-09-08 14:15 | W.PM.HP.N ---
Date of service: 09/08/25 Time of Service: 15:54 Assessment and Plan Assessment and plan (1) Failure to thrive in adult: Status: Acute Assessment and plan: multiple failed discharges to home medical screening in ED, no acute medical condition unsafe discharge plan to home referred to observation, case management, PT/OT consult for discharge planning, anticipate discharge to [facility] facility (2) Pyuria: Status: Acute Assessment and plan: No symptoms of UTI with no dysuria frequency or urgency Will defer antibiotic therapy until cultures are resulted Continue to monitor closely (3) Anxiety: Status: Chronic Assessment and plan: will continue current regimen on citalopram and mirtazapine and adjust as needed to help alleviate symptoms (4) Ambulatory dysfunction: Status: Chronic Assessment and plan: Secondary to anxiety from fear of falling Fall precautions PT/OT (5) Non-insulin dependent type 2 diabetes mellitus: Status: Acute Assessment and plan: Diabetic diet blood sugar checks with sliding scale ac/hs last A1C was 5.9 continue home regimen (6) (HFpEF) heart failure with preserved ejection fraction: Status: Acute Assessment and plan: no evidence of fluid overload continue home lasix echo from 02/2025 Conclusion Normal left ventricular wall thickness and chamber size. Ejection fraction is 60 to 65%. Wall motion is normal Normal right ventricular size and function Mildly dilated left atrium. Normal right atrial size Aortic valve is sclerotic and probably trileaflet. There is no aortic stenosis or regurgitation Mitral annular calcification. Mild mitral regurgitation Estimated right ventricular systolic pressure is 22 mmHg (7) Atrial fibrillation: Status: Chronic Assessment and plan: rate controlled on metoprolol not anticoagulated d/t fall risk (8) Depression: Status: Chronic Assessment and plan: continue mirtazapine (9) CKD (chronic kidney disease): Status: Chronic Assessment and plan: at baseline avoid nephrotoxic drugs, renal dosing as needed. (10) Hypothyroidism (acquired): Status: Acute Assessment and plan: continue levothyroxine last TSH 6.05 on aug 13, 2025 (11) Obesity (BMI 30.0-34.9): Status: Acute Assessment and plan: nutritional consultation outpatient with pcp (12) On deep vein thrombosis (DVT) prophylaxis: Status: Acute Assessment and plan: enoxaparin daily discussed with DR Foster History of Present Illness Narrative: This is an 79-year-old female patient past medical history significant for type 2 diabetes mellitus, heart failure with preserved ejection fraction, hypothyroidism, anxiety who has been hospitalized on multiple recent occasions for falls and severe anxiety secondary to falls. Medications have been adjusted. She has received physical therapy. She was last discharged approximately 4 days ago with maximal home services to help facilitate a safe discharge to home but patient was unable to safely be cared for by her even with these additional services. He brought her back here to the emergency department today. A medical screening exam was performed and there was no acute medical condition thought to be contributing to her failure to discharge. Her urine did reflex for culture but will wait for culture report as she is asymptomatic with no dysuria frequency urgency fever or signs of untreated or systemic infection. She will be admitted to the medical surgical unit under hospitalist services with case management consultation for referrals to [facility] facilities Review of Systems All systems reviewed & are unremarkable except as noted in HPI and below PFSH All Active Problems (Updated 09/08/25 @ 15:49 by Natacha No NP) Pyuria (Acute) On deep vein thrombosis (DVT) prophylaxis (Acute) Hypothyroidism (acquired) (Acute) Non-insulin dependent type 2 diabetes mellitus (Acute) Depression (Chronic) CKD (chronic kidney disease) (Chronic) Obesity (BMI 30.0-34.9) (Acute) (HFpEF) heart failure with preserved ejection fraction (Acute) Atrial fibrillation (Chronic) Anxiety (Chronic) Failure to thrive in adult (Acute) Debility (Acute) Hypotension (Acute) NICOLE (acute kidney injury) (Acute) Ambulatory dysfunction (Chronic) Acute UTI (Acute) General weakness (Acute) Hx of falling (Acute) Medical History (HFpEF) heart failure with preserved ejection fraction Obesity (BMI 30.0-34.9) Intertriginous candidiasis CKD (chronic kidney disease) Depression Non-insulin dependent type 2 diabetes mellitus Hypothyroidism (acquired) CHF (congestive heart failure) related to Hg 5.7. Resolved. Nl echo Acute pain of right hip Acute UTI Osteopenia Glaucoma Trochanteric bursitis Atrial fibrillation with RVR Related hg 5.7, isolated Anemia Leucocytosis Acute CHF DVT prophylaxis Abnormal finding on breast imaging Goiter Pleural effusion Acute dyspnea Squamous cell cancer of scalp and skin of neck Breast cancer Hypercholesterolemia HTN (hypertension) Diabetes mellitus Surgical History History of thoracentesis (~03/2025) S/P skin and subcutaneous tissue surgery S/P breast lumpectomy Social History Smoking/Tobacco Use Status: Never Smoking risk assessment performed?: Yes Alcohol Intake: never Drug use: Never Substance use type: does not use Housing: house Do you feel safe at home: Yes Do you feel safe in your relationship?: Yes Meds Allergies and Home Medications Allergies Allergy/AdvReac Type Severity Reaction Status Date / Time doxazosin (From Cardura) Allergy Intermediate Unknown Verified 09/08/25 11:29 sitagliptin (From Januvia) Allergy Intermediate Unknown Verified 09/08/25 11:29 famotidine Allergy Unknown Other (See Verified 09/08/25 11:29 Comment) empagliflozin (From Allergy Unknown Verified 09/08/25 11:29 Jardiance) Home Medications ?Medication ?Instructions ?Recorded ?Confirmed ?Type glipizide 10 mg tablet 10 mg PO BID 07/12/21 09/08/25 History metoprolol succinate 100 mg 100 mg PO BID #0 tabs 05/08/22 09/08/25 Rx tablet,extended release 24 hr citalopram 20 mg tablet 20 mg PO DAILY 12/30/22 09/08/25 History simvastatin 20 mg tablet 20 mg PO HS 12/30/22 09/08/25 History acetaminophen 325 mg tablet 650 mg (2 x 325 mg) PO Q6H PRN PRN 06/20/23 09/08/25 Rx #30 tabs ferrous gluconate 324 mg (38 mg 324 mg PO DAILY #60 tabs 07/12/23 09/08/25 Rx iron) tablet furosemide 20 mg tablet 20 mg PO DAILY #60 tabs 07/12/23 09/08/25 Rx mirtazapine 30 mg tablet 30 mg PO HS 08/01/25 09/08/25 History levothyroxine 88 mcg tablet 88 mcg PO DAILY 08/02/25 09/08/25 History metformin 500 mg tablet 1,000 mg PO BID 08/02/25 09/08/25 History Exam Narrative Exam Narrative: Elderly female frail tearful sitting up in her bed head is atraumatic previous scar from past surgery well-healed does have open nonhealing area at the top of her head Mepilex is intact. Top of her head with alopecia that starts at the surgical lines. Eyes nonicteric noninjected oral mucosa is slightly dry neck full range of motion cardiovascular regular rate and rhythm respirations even and unlabored moves all extremities abdomen soft nontender neurologic she is awake alert oriented no focal deficits psychiatric blunted, tearful Results Labs 09/08/25 12:05 09/08/25 12:05 Labs: Laboratory Results - last 24 hr 09/08/25 09/08/25 09/08/25 12:05 13:09 13:53 WBC 9.30 RBC 3.73 L Hgb 11.7 Hct 36.6 MCV 98 H MCH 31.4 MCHC 32.0 RDW 14.7 H Plt Count 172 MPV 9.9 Immature Gran % 0.3 Neutrophils % 64.2 Lymphocytes % 17.6 Monocytes % 4.6 Eosinophils % 12.9 Basophils % 0.4 Nucleated RBC % 0.0 Absolute Neutrophils 5.96 Absolute Lymphocytes 1.64 Absolute Monocytes 0.43 Absolute Eosinophils 1.20 H Absolute Basophils 0.04 Sodium 143 Potassium 5.2 H Chloride 108 H Carbon Dioxide 25.3 Anion Gap 9.7 BUN 25 H Creatinine 1.36 H Est GFR (CKD-EPI 2020) 37.24 Glucose 116 H Calcium 10.0 Magnesium 1.8 Total Bilirubin 0.40 AST 20 ALT 13 Alkaline Phosphatase 149 H Troponin I 6 5 Total Protein 7.7 Albumin 4.2 Urine Color Yellow Urine Clarity Sl Cloudy Urine pH 5.5 Ur Specific [place] 1.020 Urine Protein 30 H Urine Ketones Negative Urine Blood Trace-lysed H Urine Nitrite Positive H Urine Bilirubin Negative Urine Urobilinogen 0.2 Ur Leukocyte Esterase Moderate H Urine Glucose Negative 09/08/25 14:31 WBC RBC Hgb Hct MCV MCH MCHC RDW Plt Count MPV Immature Gran % Neutrophils % Lymphocytes % Monocytes % Eosinophils % Basophils % Nucleated RBC % Absolute Neutrophils Absolute Lymphocytes Absolute Monocytes Absolute Eosinophils Absolute Basophils Sodium Potassium Chloride Carbon Dioxide Anion Gap BUN Creatinine Est GFR (CKD-EPI 2020) Glucose Calcium Magnesium Total Bilirubin AST ALT Alkaline Phosphatase Troponin I Cancelled Total Protein Albumin Urine Color Urine Clarity Urine pH Ur Specific [place] Urine Protein Urine Ketones Urine Blood Urine Nitrite Urine Bilirubin Urine Urobilinogen Ur Leukocyte Esterase Urine Glucose Last Vital Signs Temp 36.8 C 09/08/25 11:29 Pulse 72 09/08/25 13:16 Resp 12 09/08/25 13:16 BP 164/60 H 09/08/25 13:16 Pulse Ox 100 09/08/25 12:40 Time Spent Time spent with Patient: 55-74 minutes Time was spent: preparing to see the patient(eg.review tests), obtaining and/or reviewing separately otained hiistory, ordering medications,tests, procedures, indepentently interpreting results and counseling the patient
[2025-09-08 14:28] LABS: C & S Indicated? Yes
--- NOTE | 2025-09-08 14:58 | W.PC.ACHO ---
Registration Status: ADM MOISÉS Primary Language: Preferred Language: [place] ED Information & Data Chief Complaint GenMedical 09/08/25 11:59 Chief Complaint GenMedical 09/08/25 11:40 Triage Note pt complaining of general 09/08/25 11:24 weakness Medical / Surgical History (Last Reviewed 08/30/25 @ 11:49 by Aicha Toro NP) Atrial fibrillation (HFpEF) heart failure with preserved ejection fraction Obesity (BMI 30.0-34.9) Intertriginous candidiasis CKD (chronic kidney disease) Depression Non-insulin dependent type 2 diabetes mellitus Hypothyroidism (acquired) CHF (congestive heart failure) Acute pain of right hip Acute UTI Osteopenia Glaucoma Trochanteric bursitis Atrial fibrillation with RVR Anemia Leucocytosis Acute CHF DVT prophylaxis Abnormal finding on breast imaging Goiter Pleural effusion Acute dyspnea Squamous cell cancer of scalp and skin of neck Breast cancer Hypercholesterolemia HTN (hypertension) Diabetes mellitus (Last Reviewed 08/30/25 @ 11:49 by Aicha Toro NP) History of thoracentesis (~03/2025) S/P skin and subcutaneous tissue surgery S/P breast lumpectomy Most Recent Vital Signs Temperature 36.8 C 09/08/25 11:29 Temperature Source Oral 09/08/25 11:29 Pulse 70 09/08/25 14:32 Pulse 71 09/08/25 14:50 Respiratory Rate 13 09/08/25 14:50 Respiratory Effort Normal, Non-Labored 09/08/25 11:59 Respiratory Depth Normal 09/08/25 11:59 Respiratory Pattern Normal 09/08/25 11:59 Blood Pressure 179/58 H 09/08/25 14:32 Blood Pressure Mean 107 09/08/25 14:32 Pulse Oximetry 95 09/08/25 13:50 Allergies doxazosin (From Cardura) Allergy (Intermediate, Verified 09/08/25 11:29) Unknown sitagliptin (From Januvia) Allergy (Intermediate, Verified 09/08/25 11:29) Unknown famotidine Allergy (Unknown, Verified 09/08/25 11:29) Other (See Comment) empagliflozin (From Jardiance) Allergy (Verified 09/08/25 11:29) Unknown Precautions Isolation Standard precaution 09/08/25 11:59 IV IV Catheter Type [Left Forearm Saline Lock ] IV Catheter Gauge [Left 20 Forearm] Diet Orders Category Date Time Status Diabetes Consistent CHO [DIET] Nutrition 09/08/25 Dinner Active Diagnostics 09/08/25 09/08/25 09/08/25 Range/Units 14:31 13:53 13:09 WBC (4.4-10.8) 10^3/uL RBC (3.93-5.22) 10^6/uL Hgb (11.2-15.7) g/dL Hct (36.0-46.0) % MCV (80-95) fL MCH (27.0-33.0) pg MCHC (32.0-36.0) % RDW (11.7-14.6) % Plt Count (130-400) 10^3/uL MPV (8.0-11.0) fL Immature Gran % % Neutrophils % % Lymphocytes % % Monocytes % % Eosinophils % % Basophils % % Nucleated RBC % (0.0-0.3) % Absolute Neutrophils (1.2-6.7) 10^3/uL Absolute Lymphocytes (1.2-3.4) 10^3/uL Absolute Monocytes (0.1-0.8) 10^3/uL Absolute Eosinophils (0.0-0.7) 10^3/uL Absolute Basophils (0.0-0.2) 10^3/uL Sodium (136-145) mmol/L Potassium (3.5-5.1) mmol/L Chloride (98-107) mmol/L Carbon Dioxide (20.0-31.0) mmol/L Anion Gap (3-11) mmol/L BUN (9-23) mg/dL Creatinine (0.55-1.02) mg/dL Est GFR (CKD-EPI 2020) (mL/min/1.73m2) Glucose (74-106) mg/dL Calcium (8.3-10.6) mg/dL Magnesium (1.6-2.6) mg/dL Total Bilirubin (0.2-1.2) mg/dL AST (<34) U/L ALT (10-49) U/L Alkaline Phosphatase (46-116) U/L Troponin I Cancelled 5 (<35) ng/L Total Protein (5.7-8.2) g/dL Albumin (3.4-5.0) g/dL Urine Color Yellow (Yellow) Urine Clarity Sl Cloudy (Clear) Urine pH 5.5 (5-8) Ur Specific [place] 1.020 (1.005-1.025) Urine Protein 30 H (Neg-Trace) mg/dL Urine Ketones Negative (Negative) mg/dL Urine Blood Trace-lysed H (Negative) Urine Nitrite Positive H (Negative) Urine Bilirubin Negative (Negative) Urine Urobilinogen 0.2 (Up to 0.2) mg/dL Ur Leukocyte Esterase Moderate H (Negative) Urine RBC 3-5 H (0-2) HPF Urine WBC 10-20 H (0-5) HPF Ur Epithelial Cells Rare (Negative) HPF Urine Crystals Negative (Negative) HPF Urine Bacteria Many (Negative) HPF Urine Casts Negative (Negative) LPF Urine Mucus Negative (Negative) Ur Culture Indicated? Yes Urine Glucose Negative (Negative) mg/dL 09/08/25 Range/Units 12:05 WBC 9.30 (4.4-10.8) 10^3/uL RBC 3.73 L (3.93-5.22) 10^6/uL Hgb 11.7 (11.2-15.7) g/dL Hct 36.6 (36.0-46.0) % MCV 98 H (80-95) fL MCH 31.4 (27.0-33.0) pg MCHC 32.0 (32.0-36.0) % RDW 14.7 H (11.7-14.6) % Plt Count 172 (130-400) 10^3/uL MPV 9.9 (8.0-11.0) fL Immature Gran % 0.3 % Neutrophils % 64.2 % Lymphocytes % 17.6 % Monocytes % 4.6 % Eosinophils % 12.9 % Basophils % 0.4 % Nucleated RBC % 0.0 (0.0-0.3) % Absolute Neutrophils 5.96 (1.2-6.7) 10^3/uL Absolute Lymphocytes 1.64 (1.2-3.4) 10^3/uL Absolute Monocytes 0.43 (0.1-0.8) 10^3/uL Absolute Eosinophils 1.20 H (0.0-0.7) 10^3/uL Absolute Basophils 0.04 (0.0-0.2) 10^3/uL Sodium 143 (136-145) mmol/L Potassium 5.2 H (3.5-5.1) mmol/L Chloride 108 H (98-107) mmol/L Carbon Dioxide 25.3 (20.0-31.0) mmol/L Anion Gap 9.7 (3-11) mmol/L BUN 25 H (9-23) mg/dL Creatinine 1.36 H (0.55-1.02) mg/dL Est GFR (CKD-EPI 2020) 37.24 (mL/min/1.73m2) Glucose 116 H (74-106) mg/dL Calcium 10.0 (8.3-10.6) mg/dL Magnesium 1.8 (1.6-2.6) mg/dL Total Bilirubin 0.40 (0.2-1.2) mg/dL AST 20 (<34) U/L ALT 13 (10-49) U/L Alkaline Phosphatase 149 H (46-116) U/L Troponin I 6 (<35) ng/L Total Protein 7.7 (5.7-8.2) g/dL Albumin 4.2 (3.4-5.0) g/dL Urine Color (Yellow) Urine Clarity (Clear) Urine pH (5-8) Ur Specific [place] (1.005-1.025) Urine Protein (Neg-Trace) mg/dL Urine Ketones (Negative) mg/dL Urine Blood (Negative) Urine Nitrite (Negative) Urine Bilirubin (Negative) Urine Urobilinogen (Up to 0.2) mg/dL Ur Leukocyte Esterase (Negative) Urine RBC (0-2) HPF Urine WBC (0-5) HPF Ur Epithelial Cells (Negative) HPF Urine Crystals (Negative) HPF Urine Bacteria (Negative) HPF Urine Casts (Negative) LPF Urine Mucus (Negative) Ur Culture Indicated? Urine Glucose (Negative) mg/dL 09/08/25 13:53 Urine Culture - Pending Urine - Reflex from Ua Intake and Output - 24 Hour Total 09/08/25 11:13 thru 09/08/25 11:24 Weight 94.4 kg Falls Risk Assessment History of Falls No History 09/08/25 11:59 Contributing Factors No Factors 09/08/25 11:59 Ambulatory Aids Uses ambulatory device 09/08/25 11:59 Tubes/Lines None 09/08/25 11:59 Gait Evaluation W/no contributing factors 09/08/25 11:59 Fall Total Score 25 09/08/25 11:59 Level of Risk Moderate Risk 09/08/25 11:59 Problems (Last Reviewed 08/30/25 @ 11:49 by Aicha Toro NP) Anxiety (Chronic) Failure to thrive in adult (Acute) Ambulatory dysfunction (Chronic) Notes 09/08/25 11:54 Nursing Notes by Susi Mathew Nursing Note: Per , ok to throw away personal sheet patient came in with Initialized on 09/08/25 11:54 - END OF NOTE Attestation Statement: By documenting the first initial, last name, and credentials of the reporting nurse below, both parties acknowledge that all relevant information regarding the patient handoff has been communicated, and that all questions have been addressed to ensure continuity and safety of care. Additional Patient Information/Comments: Report Received From: Pt admitted for failure to thrive and refusal to get out of bed. VS WNL. Janneth RN
[2025-09-08] MEDS: metFORMIN 500 MG TAB 1000 MG PO (18:06)
[2025-09-08] MEDS: glipiZIDE 10 MG TAB PO (18:07)
[2025-09-08] MEDS: Metoprolol CR 100 MG TABCR PO (19:46)
[2025-09-08] MEDS: Mirtazapine 15 MG TAB 30 MG PO (19:46)
[2025-09-08] MEDS: Simvastatin 20 MG TAB PO (19:46)
[2025-09-08] MEDS: Nystatin CREAM 15 GM TUBE TP (22:05)
[2025-09-09] MEDS: Levothyroxine 88 MCG TAB PO (05:59)
[2025-09-09 07:14] VITALS: BP 155/60; PULSE 73; RESP 16; TEMP 36.6; O2SAT 100
--- NOTE | 2025-09-09 08:40 | PDOC.CMIN ---
Date of service: 09/09/25 Time of Service: 08:40 Care Management Initial Assmt Initial Assessment Reason for Hospitalization: Failure to thrive Functional Status/Living Situation Patient Presentation: Arlene was awake and lying in bed when CM met with her. She is accompanied by her Quirino whom is seated at the bedside. This is Arlene's 4th admission within the last 5 weeks as a result of her ambulatory dysfunction and her voices that he can no longer care for her at home. During her previous admission, Arlene was noted to be progressing well with PT, and her anxiety appeared to be well controlled with Chlonodine and Seroquel. She was then discharged home with a hospital bed and increased caregiver support services to help facilitate a safe transition. However, shortly after returning home the patient experienced a significant decline and her was unable to safely manage her care. It was later identified that Arlene was discharged without new prescriptions for Clonidine or Seroquel, which may have contributed to her decompensation and subsequent return to the ER within 4 days of discharge. At this time, Arlene acknowledges that she requires a level of caregiver support that can no longer be provided by her alone, and she and [employer] are both agreeable for her usp placement at a SNF. Their first choice is the [facility] and a referral was sent. In addition, CM let her community CM know that patient is now accepting of usp care and referrals are being sent. CM will follow. Town of Residence: [place] Resides with: Spouse (Quirino) Significant Other/Family: Local Natural Supports: Quirino, and supportive neighbors (Misti and her .) Patient also has a sister that lives in [place]. Community Case Management through the [facility] Alla Patterson Employment Status: Retired Instrumental Activities of Daily Living (ADLs): Requires support Medications Medication Management: Issues/Barriers with Obtaining and Instructions/Directions Physical Functioning/Mobility Assistive Device: Wheelchair, walker, ramp, hospital bed, uses rct w/c van uyenn Advance Directives Advance Directives: Do you have an Advance Directive: Y 02/28/25, 08:30 AD On File at [facility]: Y 02/28/25, 08:30 Date Asked 12/05/24 09/08/25, 11:35 AD Date Reviewed 09/08/25 09/08/25, 11:35 COLST On File at [facility] No 01/27/24, 08:54 COLST Date Scanned Code Status Resuscitation Status DNR/DNI Insurance Coverage/Financial Issues Insurance: Medicare Part A & B - [id number] Medicaid of [place] - [id number] Care Team Visit Care Team Role Provider Type Renetta Cheung APRN MD [facility] STAFF PHYSICIAN Geovanna Anders Primary Care Provider NURSE PRACTITIONER Sridevi Ha Other Providers REG OCCUPATIONAL THERAPIST InPatient Sean Escobedo Other Providers OTHER Eve Chavez MD Emergency Provider [facility] STAFF PHYSICIAN Geoffrey Foster MD Admit Provider [facility] STAFF PHYSICIAN Attending Provider Discharge Potential Discharge Needs: PCP F/U Appt Anticipated Barriers to Discharge: Other (Needs a safe discharge) Patient/Family Education Needs: Review discharge instructions, discuss Ask Me Three Transportation: Other (Dependent on mobility at the time of discharge. 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 A SNF referral is pending at the [facility], and not only are they interested they have bed availability. CM will follow. Social Determinants of Health Screening Social Determinants of health last assessed in clinic: 09/11/25 Will the Patient Participate in the Screening?: Yes Do you worry about having a steady place to live?: no Problems where you live: no known problems In the past 12 months, have you had to go without electric, gas, oil or water in your home?: no 1. Within the past 12 months, we worried whether our food would run out before we got money to buy more.: Never true 2. Within the past 12 months, the food we bought just didn't last and we didn't have money to get more.: Never true Has lack of transportation kept you from medical appointments or from doing things needed for daily living?: no Has anyone in your life made you feel unsafe or unsupported?: no How hard is it for you to pay for the very basics like food, housing, medical care, and heating? Would you say it is:: Not hard at all Do you want help finding or keeping work or a job?: I do not need or want help If for any reason you need help with day-to-day activities such as bathing, preparing meals, shopping, managing finances, etc., do you get the help you need?: I don?t need any help How often do you feel lonely or isolated from those around you?: Never Do you speak a language other than Vincentian at home?: No PFSH All Active Problems (Updated 09/10/25 @ 09:48 by Renetta Cheung APRN) Klebsiella cystitis (Acute) Pyuria (Acute) On deep vein thrombosis (DVT) prophylaxis (Acute) Hypothyroidism (acquired) (Acute) Non-insulin dependent type 2 diabetes mellitus (Acute) Depression (Chronic) CKD (chronic kidney disease) (Chronic) Obesity (BMI 30.0-34.9) (Acute) (HFpEF) heart failure with preserved ejection fraction (Acute) Atrial fibrillation (Chronic) Anxiety (Chronic) Failure to thrive in adult (Acute) Debility (Acute) Hypotension (Acute) NICOLE (acute kidney injury) (Acute) Ambulatory dysfunction (Chronic) Acute UTI (Acute) General weakness (Acute) Hx of falling (Acute) Medical History (HFpEF) heart failure with preserved ejection fraction Obesity (BMI 30.0-34.9) Intertriginous candidiasis CKD (chronic kidney disease) Depression Non-insulin dependent type 2 diabetes mellitus Hypothyroidism (acquired) CHF (congestive heart failure) related to Hg 5.7. Resolved. Nl echo Acute pain of right hip Acute UTI Osteopenia Glaucoma Trochanteric bursitis Atrial fibrillation with RVR Related hg 5.7, isolated Anemia Leucocytosis Acute CHF DVT prophylaxis Abnormal finding on breast imaging Goiter Pleural effusion Acute dyspnea Squamous cell cancer of scalp and skin of neck Breast cancer Hypercholesterolemia HTN (hypertension) Diabetes mellitus Surgical History History of thoracentesis (~03/2025) S/P skin and subcutaneous tissue surgery S/P breast lumpectomy Social History Smoking/Tobacco Use Status: Never Smoking risk assessment performed?: Yes Alcohol Intake: never Drug use: Never Substance use type: does not use Housing: house Do you feel safe at home: Yes Do you feel safe in your relationship?: Yes Readmission Within the Past 30 Days Yes or No: Yes Date of First Admission Date of 1st Admission: 08/13/25 Date of this Admission Date of Admission: 09/04/25 This admission was: Through ED Office Visit Since 1st Admission Have you seen your PCP in the office since discharge?: No If the patient had a VNA ordered Did the patient have a VNA order?: Yes If the patient had home care service Call them to discuss the patient's admission: No, Patient was discharged on 08/04, [facility] went out to the home 09/06, and patient requested that her services begin in 09/09. ED visits How many ED visits in the past 12 months: 4 Assessment for Readmission Summary of readmission circumstances, based upon interviews: Arlene's anxiety is the primary reason for her ambulatory dysfunction. And while PT is able to make good progress mobility with her during her hospitalizations, her progress often regresses after discharge when the medications used to control her anxiety are not continued. Most recently, on 09/04 she was discharged without new prescriptions for Clonodine and Seroquel, which may have contributed to her decompensation after discharge.
[2025-09-09] MEDS: Enoxaparin 40 MG/0.4 ML SYR SC (09:46)
[2025-09-09] MEDS: Metoprolol CR 100 MG TABCR PO ×2 (09:46→21:05)
[2025-09-09] MEDS: Ferrous Gluconate 324 MG TAB PO (09:46)
[2025-09-09] MEDS: glipiZIDE 10 MG TAB PO ×2 (09:46→17:40)
[2025-09-09] MEDS: Furosemide 20 MG TAB PO (09:46)
[2025-09-09] MEDS: Citalopram 20 MG TAB PO (09:46)
[2025-09-09] MEDS: metFORMIN 500 MG TAB 1000 MG PO ×2 (09:47→17:41)
--- NOTE | 2025-09-09 09:52 | W.PM.PROGNOT ---
Date of Service Date of service: 09/09/25 Time of Service: 09:52 Assessment and Plan Assessment and plan (1) Failure to thrive in adult: Status: Acute Assessment and plan: multiple failed discharges to home medical screening in ED, no acute medical condition unsafe discharge plan to home referred to observation, case management, PT/OT consult for discharge planning, anticipate discharge to senior living facility (2) Anxiety: Status: Chronic Assessment and plan: Resume clonidine as per [id number] stay Anxiety was a major factor in her ability to ambulate for her recurrent admissions. During last stay her med were adjusted and anxiety resolved with low-dose clonidine twice a day after the patient had failed clonazepam and gabapentin. With positive result patient should be discharged on clonidine (3) Pyuria: Status: Acute Assessment and plan: No UTI with no dysuria frequency or urgency Will defer antibiotic therapy until cultures are resulted Continue to monitor closely (4) Ambulatory dysfunction: Status: Chronic Assessment and plan: Secondary to anxiety from fear of falling Fall precautions Ongoing PT/OT (5) Non-insulin dependent type 2 diabetes mellitus: Status: Acute Assessment and plan: Diabetic diet Ongoing blood sugar checks with sliding scale ac/hs last A1C was 5.9 continue home regimen (6) (HFpEF) heart failure with preserved ejection fraction: Status: Acute Assessment and plan: Stable, no evidence of fluid overload continue home lasix echo from 02/2025 Conclusion Normal left ventricular wall thickness and chamber size. Ejection fraction is 60 to 65%. Wall motion is normal Normal right ventricular size and function Mildly dilated left atrium. Normal right atrial size Aortic valve is sclerotic and probably trileaflet. There is no aortic stenosis or regurgitation Mitral annular calcification. Mild mitral regurgitation Estimated right ventricular systolic pressure is 22 mmHg (7) Atrial fibrillation: Status: Chronic Assessment and plan: Ongoing rate controlled on metoprolol not anticoagulated d/t fall risk (8) Depression: Status: Chronic Assessment and plan: Ongoing mirtazapine (9) CKD (chronic kidney disease): Status: Chronic Assessment and plan: [place] and at baseline Continue to avoid nephrotoxic drugs, renal dosing as needed. (10) Hypothyroidism (acquired): Status: Acute Assessment and plan: Ongoing hoem dose of levothyroxine last TSH 6.05 on aug 13, 2025 (11) Obesity (BMI 30.0-34.9): Status: Acute Assessment and plan: nutritional consultation outpatient with pcp Will discuss GLP-1 with patient and family with outpatient follow-up if this is an option (12) On deep vein thrombosis (DVT) prophylaxis: Start date: 09/09/25 Start time: 10:03 Status: Acute Assessment and plan: Ongoing enoxaparin daily discussed with DR Foster Subjective Subjective Patient reports: no new complaints and other (Reports feeling scared and anxious about outcome, denies chills, pain, nausea, vomiting, diarrhea or dysuria) Exam Narrative Exam Narrative: Elderly female frail sitting up in her w/o distress, previous scar to scalp from past surgery well-healed does have open nonhealing area at the top of her head dressing is intact. Top of her head with alopecia that starts at the surgical lines. EySclra nonicteric noninjected oral mucosa is slightly dry neck full range of motion cardiovascular regular rate and rhythm respirations even and unlabored moves all extremities abdomen soft nontender neurologic she is awake alert oriented no focal deficits psychiatric blunted, tearful Objective Last Vital Signs Temp 36.6 C 09/09/25 07:14 Pulse 73 09/09/25 07:14 Resp 16 09/09/25 07:14 BP 155/60 H 09/09/25 07:14 Pulse Ox 100 09/09/25 07:14 Laboratory Results - last 24 hr 09/08/25 09/08/25 09/08/25 12:05 13:09 13:53 WBC 9.30 RBC 3.73 L Hgb 11.7 Hct 36.6 MCV 98 H MCH 31.4 MCHC 32.0 RDW 14.7 H Plt Count 172 MPV 9.9 Immature Gran % 0.3 Neutrophils % 64.2 Lymphocytes % 17.6 Monocytes % 4.6 Eosinophils % 12.9 Basophils % 0.4 Nucleated RBC % 0.0 Absolute Neutrophils 5.96 Absolute Lymphocytes 1.64 Absolute Monocytes 0.43 Absolute Eosinophils 1.20 H Absolute Basophils 0.04 Sodium 143 Potassium 5.2 H Chloride 108 H Carbon Dioxide 25.3 Anion Gap 9.7 BUN 25 H Creatinine 1.36 H Est GFR (CKD-EPI 2020) 37.24 Glucose 116 H Calcium 10.0 Magnesium 1.8 Total Bilirubin 0.40 AST 20 ALT 13 Alkaline Phosphatase 149 H Troponin I 6 5 Total Protein 7.7 Albumin 4.2 Urine Color Yellow Urine Clarity Sl Cloudy Urine pH 5.5 Ur Specific [place] 1.020 Urine Protein 30 H Urine Ketones Negative Urine Blood Trace-lysed H Urine Nitrite Positive H Urine Bilirubin Negative Urine Urobilinogen 0.2 Ur Leukocyte Esterase Moderate H Urine RBC 3-5 H Urine WBC 10-20 H Ur Epithelial Cells Rare Urine Crystals Negative Urine Bacteria Many Urine Casts Negative Urine Mucus Negative Ur Culture Indicated? Yes Urine Glucose Negative 09/08/25 14:31 WBC RBC Hgb Hct MCV MCH MCHC RDW Plt Count MPV Immature Gran % Neutrophils % Lymphocytes % Monocytes % Eosinophils % Basophils % Nucleated RBC % Absolute Neutrophils Absolute Lymphocytes Absolute Monocytes Absolute Eosinophils Absolute Basophils Sodium Potassium Chloride Carbon Dioxide Anion Gap BUN Creatinine Est GFR (CKD-EPI 2020) Glucose Calcium Magnesium Total Bilirubin AST ALT Alkaline Phosphatase Troponin I Cancelled Total Protein Albumin Urine Color Urine Clarity Urine pH Ur Specific [place] Urine Protein Urine Ketones Urine Blood Urine Nitrite Urine Bilirubin Urine Urobilinogen Ur Leukocyte Esterase Urine RBC Urine WBC Ur Epithelial Cells Urine Crystals Urine Bacteria Urine Casts Urine Mucus Ur Culture Indicated? Urine Glucose Time Spent with Patient Time Spent with Patient: >50 minutes Time was spent: preparing to see the patient(eg.review tests), obtaining and/or reviewing separately otained hiistory, ordering medications,tests, procedures, referring, communicating with other health medicare sales executive, indepentently interpreting results, counseling the patient, care coordination and other
--- NOTE | 2025-09-09 10:08 | IN_ITS ---
PT Notes Visit Reasons: Failure to Thrive Physical Therapy Inpatient Initial Evaluation Date: 09/09/2025 Referring Doctor: Natacha No NP PT Orders: PT CONSULT: Eval and treat Precautions: Fall. Standard. Activity as tolerated. Patient Profile/Admitting Diagnosis: 79 year old female admitted for generalized weakness and failure to thrive 4 days after discharge to home from hospital after prolonged hospitalization with multiple medication changes to manage her anxiety.. PMHX: Pyuria (Acute) On deep vein thrombosis (DVT) prophylaxis (Acute) Hypothyroidism (acquired) (Acute) Non-insulin dependent type 2 diabetes mellitus (Acute) Depression (Chronic) CKD (chronic kidney disease) (Chronic) Obesity (BMI 30.0-34.9) (Acute) (HFpEF) heart failure with preserved ejection fraction (Acute) Atrial fibrillation (Chronic) Anxiety (Chronic) Failure to thrive in adult (Acute) Debility (Acute) Hypotension (Acute) NICOLE (acute kidney injury) (Acute) Ambulatory dysfunction (Chronic) Acute UTI (Acute) General weakness (Acute) Hx of falling (Acute) Medical History (HFpEF) heart failure with preserved ejection fraction Obesity (BMI 30.0-34.9) Intertriginous candidiasis CKD (chronic kidney disease) Depression Non-insulin dependent type 2 diabetes mellitus Hypothyroidism (acquired) CHF (congestive heart failure) related to Hg 5.7. Resolved. Nl echoAcute pain of right hip Acute UTI Osteopenia Glaucoma Trochanteric bursitis Atrial fibrillation with RVR Related hg 5.7, isolatedAnemia Leucocytosis Acute CHF DVT prophylaxis Abnormal finding on breast imaging Goiter Pleural effusion Acute dyspnea Squamous cell cancer of scalp and skin of neck Breast cancer Hypercholesterolemia HTN (hypertension) Diabetes mellitus Surgical History History of thoracentesis (~03/2025) S/P skin and subcutaneous tissue surgery S/P breast lumpectomy Social History/Home Situation: Pt lives at home with her and dog. Pt has a ramp to enter and everything she needs on that floor. provided ADL care. Pt was CGA with FWW for transfers and ambulation up to 150 feet when discharged to home on 09/04/2025 Equipment Owned/DME: FWW, commode, hospital bed, wheelchair with ELR Subjective: Pt reported feeling well Objective: General Observation: Pt presented laying in bed when PT arrived. Pt skin was excessively dry. Multiple times throughout the session pt needed to stop and scratch her back/belly. Area of piticcii to right lower lateral leg Mental Status: Alert and oriented as to person, place, time, and purpose. Pt has moments of needing to think/ increased time to precess instructions or questions. Pt will respond, and it feels like she is just agreeing with you. Pt has right sided neglect. pt has difficulty focusing on task and needs to be asked multiple times before responding/ . Informed Consent/Education:? Patient was instructed in purpose of PT consult and plan of care. Agreeable to proceed with established PT POC to achieve personal goals. Pain: no pain reported Vital Signs: monitored by nursing ROM: Right Upper Extremity: Grossly WFL Left Upper Extremity: Grossly WFL Right Lower Extremity: Grossly WFL Left Lower Extremity: Grossly WFL Strength: Right Upper Extremity: Shoulder flexors 3-/5. Shoulder abductors 3-/5. Elbow flexors 4-/5. Elbow extensors 4-/5. Alteration Tailor mild. Left Upper Extremity: Shoulder flexors 3-/5. Shoulder abductors 3-/5. Elbow flexors 4-/5. Elbow extensors 4-/5. Alteration Tailor mild. Right Lower Extremity: Hip flexors 3-/5. Hip abductors 3/5. Knee flexors 3+/5. Knee extensors 3+/5. Ankle dorsiflexors 4/5. Ankle plantarflexors 4/5. Left Lower Extremity: Hip flexors 3-/5. Hip abductors 3/5. Knee flexors 3+/5. Knee extensors 3+/5. Ankle dorsiflexors 4/5. Ankle plantarflexors 4/5 Bed Mobility/Transfers: Rolling to left with Min A of 1 cue for safe/correct technique; roll to right pt resistive and fearful Supine to sit with Min A of 1 cues for safe/correct technique Sit to supine with Min A of 2 ?cues for safe/correct technique Sit to stand: unable d/t anxiety and fear Gait: Not assessed d/t anxiety and fear Balance: Static Sitting: fair with feet on floor and BUE supported on FWW Dynamic Sitting: poor Static Standing: NA Dynamic Standing: NA Special Tests: Mobility Limitations Standardized Measure [employer] AM-PAC 6 clicks Basic Mobility Inpatient Short Form: Raw Score: 6? CMS Score: 100% deficit? Assessment: Pt was able to move from supine to EOB with min A increased time and continuos cues to scoot forward to get feet on floor. Pt presented with slight fearfulness/anxiety while at EOB. Once at EOB pt put hands on FWW and started to try and stand, but became fearful of standing. PT let the pt take a moment. This went on for a couple of mins. Pt presents with generalized weakness, and has fearfulness of standing. In prior visits pt performed well on clonidine medication. After reviewing the medication list. Pt was not provided clonidine this morning. Pt would benefit from skilled physical therapy to help address generalized weakness. Patient presents with clinical signs and symptoms consistent with cur rent/admitting diagnoses that have resulted to mobility limitations, gait instability, generalized weakness, and overall ADL decline as demonstrated by the following impairment level findings: 1.? Decreased strength to LE major muscle groups 2.? Impaired sitting/standing balance 3.? Impaired activity tolerance 4.? Increased Itchiness 5. increased anxiety/fearful with movement Impairments are contributing to the following functional limitations: 1.? Decline in bed mobility skills 2.? Decline in transfer skills 3.? Difficulty with ambulation without assistive device and physical assistance 4.? Increased completion time for mobility ADL performance 5.? Increased risk for falls Patient is assessed as a Mod complexity based on the following: History: 79-year-old female with past medical history as indicated above Examination: Demonstrable impairment in strength, balance, and mobility level with underlying impairments and functional limitations as exhibited above as well as deficit score of 100% utilizing the [facility] Mobility Inpatient Short Form Presentation: evolving Decision Making: Moderate complexity Goals: Goals X1 week 1. Supine-Sit Supervision 2. Sit-Supine Supervision 3. Sit-Stand Min A of 1 at FWW 4. Stand-Sit Min A of 1 at FWW 5. Bed-Chair Min A of 1 with FWW 6. Chair-Bed Min A of 1 with FWW 7. gait on level surface with use of FWW min A of 2 with chair follow for safety for at least 20 feet without report of pain nor dyspnea Plan of Care/Treatment Plan: 1-2x/day, 7 days/week x 1 week. Plan of care has been reviewed with the BONE COOKING OPERATOR providing the service under Physical Therapy direction. Initiate Physical Therapy intervention for pain management as needed, strengthening, bed mobility, transfers, gait, stairs, balance training, and use of assistive device. DISCHARGE RECOMMENDATIONS: ?SNF for continued rehabilitation and terminal clerk placement TREATMENT CODE/TIME: 50414/8:50-9:18 Thank you for the opportunity to participate in the care of this patient. Written by: Med Funes Supervised by: Ankita Escobedo, [facility] [place], [place]
[2025-09-09 10:12] LABS: Abs Immature Grans 0.03 10^3/uL (0.0-0.06); HCT 35.1 % (36.0-46.0); HGB 11.5 g/dL (11.2-15.7); Immature Grans % 0.4 %; MCH 31.7 pg (27.0-33.0); MCHC 32.8 % (32.0-36.0); MCV 97 fL (80-95); MPV 10.2 fL (8.0-11.0); Platelet Count 153 10^3/uL (130-400); RBC 3.63 10^6/uL (3.93-5.22); RDW 14.6 % (11.7-14.6); RDW-SD 52.2 fL; WBC 7.79 10^3/uL (4.4-10.8)
[2025-09-09 10:34] LABS: Anion Gap 7.8 mmol/L (3-11); BUN 33 mg/dL (9-23); CO2 23.2 mmol/L (20.0-31.0); Calcium 9.5 mg/dL (8.3-10.6); Chloride 110 mmol/L (98-107); Glucose 225 mg/dL (74-106); Potassium 4.5 mmol/L (3.5-5.1); Sodium 141 mmol/L (136-145)
[2025-09-09] MEDS: cloNIDine 0.1 MG TAB PO ×3 (11:20→21:05)
[2025-09-09] MEDS: Nystatin CREAM 15 GM TUBE TP ×2 (11:20→21:06)
[2025-09-09] MEDS: Insulin Aspart 300 UNITS/3 ML PEN SC (12:24)
--- NOTE | 2025-09-09 13:40 | PTTR_ITS ---
PT Notes Visit Reasons: Failure to Thrive Inpatient Physical Therapy Treatment Note [facility] Date: 09/09/2025 PRECAUTIONS: Standard, Fall, anxiety and fear of movement. SUBJECTIVE: Pt reported feeling well. When asked if she remembered this morning?s session, she reported no. Pt reported feeling itchy. OBJECTIVE:? ? present for session. ? PAIN: No pain reported VITALS: ? Monitored by nursing Therapeutic Activities ([id number][]): Direct one-on-one instruction in dynamic activities to improve functional performance. ? BED MOBILITY/TRANSFERS? Supine-sit at EOB: supervision. Providing tactile and verbal cueing for hand placement.? Sit-supine: Min A of 1. Pt needs help with guiding her legs and adding slight support to her legs.? Bridging to scoot up in bed with B foot supported with max cues and to reposition laterally in bed Bridging x 5 reps to adjust linen and for glute strengthening? Sit-stand: Unable to day out of fear.? EOB anterior weight shifts: 4sets [id number] with rest between sets, having her hold position for 4 seconds on the last two sets. ? EOB Lateral weight shifts each side: 1set [id number], the tactile cueing to lift opposite hip that she?s leaning towards. ? Provided skilled cues and instruction on performance and technique throughout. ASSESSMENT:? Pt was able to get to the EOB easier this session compared to the morning session. Pt was able to complete the task in less time, and with less fearfulness of being at the EOB. Pt continued to have fearfulness of standing. DPTS lowered FWW to allow pt to have optimal body mechanics to stand. PT also raised the bed to make it easier on the pt. As pt tried to stand they were not anteriorly shifting their weight forward and this was causing her feet to slip forward. DPTS sat in recliner in front of patient and had her anterior weight shift. DPTS raised his hands so the patient had a target of how much she needed to lean forward. Pt shoulders would touch DPTS hands as she leaned anteriorly. DPTS slowly brought his hands further away from the pt. Resulting in her shifting anteriorly more and more. With this pt was able to shift her weight forward more. DPTS then had the pt perform lateral weight shifts to simulate the movement of bringing her hips forward when pt goes from supine to EOB.Pt able to perform lateral weight shift to the left with less ease than right. She needed increased time to complete the shift to right however was not able to achieve the same excursion to the right despite verbal and tactile cues. Pt's functional abilities are significantly limited by fear and anxiety. With the readministration of the clonidine anticipate Arlene will progress with her functional mobility. Next session will attempt standing from bed and progress to step turn transfers to the chair with FWW ?PLAN: 1-2x/day, 7 days/week x 1 week. Plan of care has been reviewed with the CERTIFIED INCOME TAX PREPARER providing the service under Physical Therapy direction. Initiate Physical Therapy intervention for pain management as needed, strengthening, bed mobility, transfers, gait, balance training, and use of assistive device ?TREATMENT CODE/TIME: 71099/1:03-1:35 DISCHARGE RECOMMENDATION: SNF to cnc cutting operator placement Written by Med Funes DPTS Supervised BY Ankita Vidal PT
--- NOTE | 2025-09-09 14:07 | OT.INIE ---
Occupational Therapy Notes Inpatient Occupational Therapy Evaluation Date: 09/09/25 Referring Doctor:Natacha No OT Orders: Non Urgent Precautions: Fall, Standard, Full PATIENT PROFILE/ADMITTING DIAGNOSIS: Pt is a 79 year old female who is consulted for failure to thrive post hospital admission at home. Past Medical History: All Active Problems (Updated 09/08/25 @ 15:49 by Natacha No, INSTRUMENTATION DESIGNER) Pyuria (Acute) On deep vein thrombosis (DVT) prophylaxis (Acute) Hypothyroidism (acquired) (Acute) Non-insulin dependent type 2 diabetes mellitus (Acute) Depression (Chronic) CKD (chronic kidney disease) (Chronic) Obesity (BMI 30.0-34.9) (Acute) (HFpEF) heart failure with preserved ejection fraction (Acute) Atrial fibrillation (Chronic) Anxiety (Chronic) Failure to thrive in adult (Acute) Debility (Acute) Hypotension (Acute) NICOLE (acute kidney injury) (Acute) Ambulatory dysfunction (Chronic) Acute UTI (Acute) General weakness (Acute) Hx of falling (Acute) Medical History (HFpEF) heart failure with preserved ejection fraction Obesity (BMI 30.0-34.9) Intertriginous candidiasis CKD (chronic kidney disease) Depression Non-insulin dependent type 2 diabetes mellitus Hypothyroidism (acquired) CHF (congestive heart failure) related to Hg 5.7. Resolved. Nl echoAcute pain of right hip Acute UTI Osteopenia Glaucoma Trochanteric bursitis Atrial fibrillation with RVR Related hg 5.7, isolatedAnemia Leucocytosis Acute CHF DVT prophylaxis Abnormal finding on breast imaging Goiter Pleural effusion Acute dyspnea Squamous cell cancer of scalp and skin of neck Breast cancer Hypercholesterolemia HTN (hypertension) Diabetes mellitus Surgical History History of thoracentesis (~03/2025) S/P skin and subcutaneous tissue surgery S/P breast lumpectomy Social History/Home Situation: Pt lives in a private home with her . He is present today in the room and reports that pt requires max (A) for all of her ADLs. They were going to start HH services but unfortunately they were unable to start d/t her recent admission. He notes that she utilizes a wc at home and in the community. She is anxious with functional mobility and this is the hardest part when they return home is her anxiousness. SUBJECTIVE: Pt was sitting in bed when OT arrived. She is agreeable to consult and notes that she would like to cook again (I) someday. Her is in the room and notes that her anxiety with functional mobility is limiting and he feels that when it is just him this makes it hard to (A) her alone in the home setting. OBJECTIVE: General Observation: Pleasant, IV in (L) UE Mental Status: A&Ox3 Pain: no c/io pain during consult. ROM: RUE AROM WFL L UE AROM WFL STRENGTH: RUE 3+/5 throughout LUE 3+/5 throughout FUNCTIONAL MOBILITY/ADLS: BATHING NT with OT as pt refused and notes she performed this with nursing prior. She has functional ROM to be able ot (I) wash her face and upper body. DRESSING would require min-mod vc Dressing UE min (A) Dressing LE Max (A) at this time with socks and shoes GROOMING Pt reports that she does not perform this on her own at this time. TOILETING mod (A) EATING (I) BALANCE: Static sitting Good Dynamic Sitting Good Static Standing Good SPECIAL TESTS: Daily Activity Limitations Standardized Measure [facility] AM -PAC ?6 clicks? Daily Activity Inpatient Short Form: Raw score: 12 Standardized score: 30.60 CMS score: 66.57% INFORMED CONSENT/EDUCATION: Pt instructed in purpose of OT Consult and plan of care. ASSESSMENT: Patient is a 79-year-old female referred to occupational therapy services with diagnosis of failure to thrive at home post 4 days admission. Patient presents with clinical signs and symptoms consistent with dx, as demonstrated by the following impairment level findings/functional limitations: Impairments in ADL/IADL and leisure activities, decreased functional activity tolerance, decreased UE/LE strength, decreased functional mobility, impairments in LE dressing and bathing. She does require (A) at her baseline level of function. AMPAC score 12 Patient is assessed as a Moderate 50790 complexity based on the following: History: see above Examination: see functional limitations as noted above Presentation: evolving Decision Making: AMPAC score 12 GOALS Goals x1 week 1. Transfers (S) 2. Dressing seated with min vc (I) UE and min (A) LE 3 times with ideal technique 3. Bathing seated in chair (I) UE, mod (A) abdomen 3 times with ideal technique 4. Toileting on toilet (I) 5. Eating seated in chair (I) PLAN OF CARE/TREATMENT PLAN: 1x/day, 3-5 days/ week x 1week Initiate Occupational Therapy Services for bathing, dressing, grooming, toileting, eating, transfer training. DISCHARGE RECOMMENDATIONS OT recommends SNF vs. LTC when medically cleared per MD. TREATMENT TIME/MINUTES/CODES 01290, 20 minutes Sridevi Ha OTR/L [facility] [place], [place]
[2025-09-09 18:58] VITALS: BP 107/50; PULSE 71; RESP 16; TEMP 36; O2SAT 100
[2025-09-09] MEDS: Normal Saline Flush 10 ML SYR IVP (21:05)
[2025-09-09] MEDS: Simvastatin 20 MG TAB PO (21:05)
[2025-09-09] MEDS: Mirtazapine 15 MG TAB 30 MG PO (21:05)
[2025-09-10] MEDS: Levothyroxine 88 MCG TAB PO (05:26)
[2025-09-10 07:15] VITALS: BP 167/68; PULSE 67; RESP 16; TEMP 35.7; O2SAT 100
--- NOTE | 2025-09-10 07:38 | CMPROGNOTE_ITS ---
Date of service: 09/10/25 Time of Service: 13:49 Care Management Progress Note Progress Note Text Progress Note Text: Arlene was sitting up at the edge of the bed today and working with PT when CM met with her. Quirino was in the room at this time. Arlene was able to work with PT 2 times yesterday and OT once. PT recommendation is SNF for continued rehabilitation and fpc placement. CM contacted [facility] regarding the referral that was sent and has provided updated clinical information. With patient permission, referral was sent to [facility]. The couple continues to be agreeable to this plan. CM will follow. Discharge Potential Discharge Needs: PCP F/U Appt Anticipated Barriers to Discharge: Bed availability Patient/Family Education Needs: Review discharge instructions, discuss Ask Me Three Transportation: Private vehicle Plan: Arlene needs fpc care placement. A SNF referral is pending at the [facility], and [facility]. It is recommended she follow up with her PCP CM will follow. Social Determinants of Health Screening Social Determinants of health last assessed in clinic: 09/10/25 Will the Patient Participate in the Screening?: Yes Do you worry about having a steady place to live?: no Problems where you live: no known problems In the past 12 months, have you had to go without electric, gas, oil or water in your home?: no 1. Within the past 12 months, we worried whether our food would run out before we got money to buy more.: Never true 2. Within the past 12 months, the food we bought just didn't last and we didn't have money to get more.: Never true Has lack of transportation kept you from medical appointments or from doing things needed for daily living?: no Has anyone in your life made you feel unsafe or unsupported?: no How hard is it for you to pay for the very basics like food, housing, medical care, and heating? Would you say it is:: Not hard at all Do you want help finding or keeping work or a job?: I do not need or want help If for any reason you need help with day-to-day activities such as bathing, preparing meals, shopping, managing finances, etc., do you get the help you need?: I don?t need any help How often do you feel lonely or isolated from those around you?: Never Do you speak a language other than [place]ic at home?: No
[2025-09-10] MEDS: Enoxaparin 40 MG/0.4 ML SYR SC (09:20)
[2025-09-10] MEDS: Cefpodoxime 200 MG TAB PO ×2 (09:21→21:50)
[2025-09-10] MEDS: glipiZIDE 10 MG TAB PO ×2 (09:21→18:52)
[2025-09-10] MEDS: Citalopram 20 MG TAB PO (09:21)
[2025-09-10] MEDS: cloNIDine 0.1 MG TAB PO ×2 (09:21→21:45)
[2025-09-10] MEDS: Metoprolol CR 100 MG TABCR PO ×2 (09:21→21:44)
[2025-09-10] MEDS: Ferrous Gluconate 324 MG TAB PO (09:21)
[2025-09-10] MEDS: Furosemide 20 MG TAB PO (09:21)
[2025-09-10] MEDS: metFORMIN 500 MG TAB 1000 MG PO ×2 (09:22→18:52)
[2025-09-10] MEDS: Nystatin CREAM 15 GM TUBE TP ×2 (09:24→21:45)
--- NOTE | 2025-09-10 09:43 | W.PM.PROGNOT ---
Date of Service Date of service: 09/10/25 Time of Service: 09:43 Assessment and Plan Assessment and plan (1) Failure to thrive in adult: Start date: 09/10/25 Start time: 09:45 Status: Acute Assessment and plan: History of multiple failed discharges to home Work-up in ED, no acute medical condition Still unsafe to discharge home- SNF Ongoin f/u by case management, PT/OT consult for discharge planning, anticipate discharge to alf facility when ready (2) Anxiety: Start date: 09/10/25 Start time: 09:45 Status: Chronic Assessment and plan: Ongoing clonidine as per previous stay - will continue to monitor for effectiveness Anxiety was a major factor in her ability to ambulate for her recurrent admissions. During last stay her med were adjusted and anxiety resolved with low-dose clonidine twice a day after the patient had failed clonazepam and gabapentin. If clonidine is effective consider discharging on clonidine - consider transition to patch if low dosage available (3) Klebsiella cystitis: Status: Acute Assessment and plan: Now on Cefpodoxime s/p culture results (4) Pyuria: Start date: 09/10/25 Start time: 09:45 Status: Acute Assessment and plan: On admission no reported fever dysuria frequency or urgency- but acute ambulatory dysfunction and similar presentation to past UTI As above (5) Ambulatory dysfunction: Start date: 09/10/25 Start time: 09:46 Status: Chronic Assessment and plan: Secondary to anxiety from fear of falling Fall precautions Ongoing PT/OT (6) Non-insulin dependent type 2 diabetes mellitus: Start date: 09/10/25 Start time: 09:46 Status: Acute Assessment and plan: Ongoing diabetic diet with blood sugar checks with sliding scale ac/hs last A1C was 5.9 On home medicine regimen (7) (HFpEF) heart failure with preserved ejection fraction: Start date: 09/10/25 Start time: 09:46 Status: Acute Assessment and plan: No exacerbation Ongoing home dose furosemide echo from 02/2025 Conclusion Normal left ventricular wall thickness and chamber size. Ejection fraction is 60 to 65%. Wall motion is normal Normal right ventricular size and function Mildly dilated left atrium. Normal right atrial size Aortic valve is sclerotic and probably trileaflet. There is no aortic stenosis or regurgitation Mitral annular calcification. Mild mitral regurgitation Estimated right ventricular systolic pressure is 22 mmHg (8) Atrial fibrillation: Start date: 09/10/25 Start time: :46 Status: Chronic Assessment and plan: Rate controlled on metoprolol not anticoagulated d/t fall risk (9) Depression: Start date: 09/10/25 Start time: :46 Status: Chronic Assessment and plan: Ongoing mirtazapine (10) CKD (chronic kidney disease): Start date: 09/10/25 Start time: 09:46 Status: Chronic Assessment and plan: Remains at baseline Continue to avoid nephrotoxic drugs, renal dosing as needed. (11) Hypothyroidism (acquired): Start date: 09/10/25 Start time: :46 Status: Acute Assessment and plan: Ongoing home dose of Synthroid last TSH 6.05 on aug 13, 2025- T4 was 1.17 (12) Obesity (BMI 30.0-34.9): Start date: 09/10/25 Start time: 46 Status: Acute Assessment and plan: Nutritional consultation ongoing Patient counseled re: GLP-1 - outpatient follow-up with PCP if this is an option (13) On deep vein thrombosis (DVT) prophylaxis: Start date: 09/10/25 Start time: 09:47 Status: Acute Assessment and plan: Ongoing LMWH discussed with DR Dent Subjective Subjective Patient reports: no new complaints, tolerating liquids well, tolerating a regular diet, voiding w/o difficulty, no bowel movement and other (Feels less anxious ); denies diarrhea, nausea, vomiting, shortness of breath or fever Exam Narrative Exam Narrative: Elderly female frail sitting up in her w/o distress, previous scar to scalp from past surgery healed but drainage to opened nonhealing area at the top of her head dressing is intact. Top of her head with alopecia that starts at the surgical lines. Sclera is nonicteric noninjected oral mucosa is moist cardiovascular regular rate and rhythm, + murmur , respirations even and unlabored- clear lungs moves all extremities abdomen soft non-tender neurologic she is awake alert oriented no focal deficits psychiatric calm , not tearful this AM Objective Last Vital Signs Temp 35.7 C L 09/10/25 07:15 Pulse 67 09/10/25 07:15 Resp 16 09/10/25 07:15 BP 167/68 H 09/10/25 07:15 Pulse Ox 100 09/10/25 07:15 Laboratory Results - last 24 hr 09/09/25 10:08 WBC 7.79 RBC 3.63 L Hgb 11.5 Hct 35.1 L MCV 97 H MCH 31.7 MCHC 32.8 RDW 14.6 Plt Count 153 MPV 10.2 Immature Gran % 0.4 Neutrophils % 67.2 Lymphocytes % 15.9 Monocytes % 4.4 Eosinophils % 11.7 Basophils % 0.4 Nucleated RBC % 0.0 Absolute Neutrophils 5.24 Absolute Lymphocytes 1.24 Absolute Monocytes 0.34 Absolute Eosinophils 0.91 H Absolute Basophils 0.03 Sodium 141 Potassium 4.5 Chloride 110 H Carbon Dioxide 23.2 Anion Gap 7.8 BUN 33 H Creatinine 1.62 H Est GFR (CKD-EPI 2020) 30.43 Glucose 225 H Calcium 9.5 VTE Prohylaxis Risk Level: Moderate/High Risk Contraindications: None Prophylaxis: Pharmacologic Time Spent with Patient Time Spent with Patient: >50 minutes Time was spent: preparing to see the patient(eg.review tests), obtaining and/or reviewing separately otained hiistory, ordering medications,tests, procedures, referring, communicating with other health long term acute care registered nurse, indepentently interpreting results, counseling the patient, care coordination and other
[2025-09-10] MEDS: Insulin Aspart 300 UNITS/3 ML PEN SC (12:55)
--- NOTE | 2025-09-10 13:37 | OT.INTREAT ---
Occupational Therapy Notes Occupational Therapy Inpatient Treatment Note Date: 09/10/25 PRECAUTIONS: Fall, Standard, DNR/DNI SUBJECTIVE: Pt states that she is sad today and feels that she is not having a good day. She is receptive to OT session and willing to participate. OBJECTIVE: PAIN: no c/o pain BATHING: max (A) set up/clean up Upper Body: (I) face and (B) UE/mod (A) abdomen and underarms Lower Body: max (A) (B) LE DRESSING: seated in bed Upper Extremity: Mod (A) don and doffing [facility] gown Lower Extremity: max (A) don and doffing (B) sock s THEREX: With yellow thera band pt performed strengthening to include stability for (B) UE to (A) with safety and (I) with her ADL/IADL. OT educated and trained pt in shoulder flexion, rows, ext, biceps, triceps, shoulder stability and progressed strengthening. Pt has no pain during or after session. Plan is to continue to work with pt to progress this. ASSESSMENT/PLAN: Pt is sad today, she is receptive to working but at baseline her admits that he does most of her ADLs. Functionally pt is able to (A) but requires vc for task initiation and task execution. TREATMENT CODES/TIME: 97301, 43468, 35 minutes ANNA Dias[facility] [place], [place]
--- NOTE | 2025-09-10 15:06 | PTTR_ITS ---
Date of service: 09/10/25 PT Notes Visit Reasons: Failure to Thrive Inpatient Physical Therapy Treatment Note [facility] Date: 09/10/2025 PRECAUTIONS: Standard, fall, fear and anxiety of movement. SUBJECTIVE: Pt reported feeling well, and slept well. OBJECTIVE: General observation. Pt lying in bed eating cashews watching tv with when PT entered. Pt still has difficulties with acknowledgement of right side. ? PAIN: No pain reported VITALS: ? Monitored by Nursing Therapeutic Activities ([id number][]): Direct one-on-one instruction in dynamic activities to improve functional performance. ? BED MOBILITY/TRANSFERS? Rolling R: Min A with verbal and tactile cueing from hand placement and LE placement to provide optimal body mechanics to perform action. ? Supine-sit EOB: supervision for most of the process, pt did need some assistance Min A of 1, just to help move right hip closer to edge of bed ? Sit-supine: Min A of 2 ? Provided skilled cues and instruction on performance and technique throughout.? Neuromuscular Re-education ([id number][]): Activities that facilitate re-education of movement balance, posture, coordination, and proprioception or kinesthetic sense, requiring skilled tactile and verbal cues ? Exercises/techniques: ? Seated EOB: Facilitation of kinesthetic awareness as follows: ? Anterior weight shift with FWW: 3 sets [id number] with rest between sets, having her hold position for 4 seconds on the last set. Pt seated at EOB and leaning forward to simulate beginning of standing up. ? Pushing feet into the ground: 3sets [id number] with rest between sets, having her hold position for 4 seconds on the last set. Pt would lean forward and push through the walker with both UE to simulate if the pt would stand up. ? Pushing UEs through the walker: 3sets [id number] with rest between sets, having her hold position for 4 seconds on the last set. Pt would shift weight anteriorly and push her heels into the ground to simulate if the pt would stand up. ? All of the above at once: 3sets [id number] with rest between sets, having her hold position for 4 seconds on the last set. Combining previous 3 exercises all at once. ? ASSESSMENT:? Pt started off feeling well, and was able to move to the EOB with slight assistance to help her move her right hip closer to EOB. Pt attempted to stand but became discourage, weepy and fearful.. Pt started leaning back and had difficulty sitting in an upright position at EOB. DPTS asked the pt to just perform start of standing without fully standing up. Pt reported not being able to. DPTS asked pt to lean forward push through the walker and push heels into the ground. Pt had difficulty to push heels through the ground, and would just extend her knees. This resulted in pt feet sliding forward and her feeling like she would fall, and cause pt to cry and become fearful. DPTS broke down each step with the pt. Pt needed multiple tactile and verbal cueing but at the end of each exercise she was able to anteriorly weight shift more. When pt combined all motions, she needed verbal and tactile cueing to remember to perform all actions. By the end of the exercise pt was able to perform all actions. When the pt initially tried to stand, she wasn?t able to unweight her buttocks . By the end Pt was able to lift/ unweight her buttocks slightly. Next session Pt will perform the same exercises to reaffirm the movement and to help strengthen pt muscles in a close chain movement pattern to facilitate the movement of standing. This will also assist build confidence with pt and decrease her fear fulness of movement. ?PLAN: 1-2x/day, 7 days/week x 1 week. Plan of care has been reviewed with the COMPUTER ENGINEERING PROFESSOR providing the service under Physical Therapy direction. Initiate Physical Therapy intervention for pain management as needed, strengthening, bed mobility, transfers, gait, balance training, and use of assistive device ?TREATMENT CODE/TIME: 24463,68078/11:25am-12:20pm DISCHARGE RECOMMENDATION: SNF to senior care placement Written By Med Funes DPTS Supervised By Ankita Vidal PT
[2025-09-10 19:21] VITALS: BP 123/52; PULSE 70; RESP 18; TEMP 36.3; O2SAT 96
[2025-09-10 21:37] VITALS: BP 128/48; PULSE 69; RESP 12; TEMP 36.8; O2SAT 98
[2025-09-10] MEDS: Simvastatin 20 MG TAB PO (21:43)
[2025-09-10] MEDS: Mirtazapine 15 MG TAB 30 MG PO (21:50)
[2025-09-11] MEDS: Levothyroxine 88 MCG TAB PO (06:16)
[2025-09-11 06:46] LABS: Abs Immature Grans 0.04 10^3/uL (0.0-0.06); HCT 34.0 % (36.0-46.0); HGB 10.9 g/dL (11.2-15.7); Immature Grans % 0.4 %; MCH 31.3 pg (27.0-33.0); MCHC 32.1 % (32.0-36.0); MCV 98 fL (80-95); MPV 10.4 fL (8.0-11.0); Platelet Count 145 10^3/uL (130-400); RBC 3.48 10^6/uL (3.93-5.22); RDW 14.3 % (11.7-14.6); RDW-SD 51.2 fL; WBC 9.12 10^3/uL (4.4-10.8)
[2025-09-11 07:02] LABS: Anion Gap 7.1 mmol/L (3-11); BUN 49 mg/dL (9-23); CO2 24.9 mmol/L (20.0-31.0); Calcium 9.8 mg/dL (8.3-10.6); Chloride 107 mmol/L (98-107); Glucose 116 mg/dL (74-106); Potassium 4.4 mmol/L (3.5-5.1); Sodium 139 mmol/L (136-145)
[2025-09-11 07:25] VITALS: BP 148/60; PULSE 66; RESP 16; TEMP 35.8; O2SAT 100
[2025-09-11] MEDS: Nystatin CREAM 15 GM TUBE TP ×2 (08:26→20:28)
[2025-09-11] MEDS: Insulin Aspart 300 UNITS/3 ML PEN SC ×2 (08:27→13:07)
[2025-09-11] MEDS: Normal Saline Flush 10 ML SYR IVP (08:27)
[2025-09-11] MEDS: cloNIDine 0.1 MG TAB PO ×2 (08:27→20:11)
[2025-09-11] MEDS: Enoxaparin 30 MG/0.3 ML SYR SC (08:27)
[2025-09-11] MEDS: metFORMIN 500 MG TAB 1000 MG PO ×2 (08:28→17:50)
[2025-09-11] MEDS: Ferrous Gluconate 324 MG TAB PO (08:28)
[2025-09-11] MEDS: glipiZIDE 10 MG TAB PO ×2 (08:28→17:50)
[2025-09-11] MEDS: Cefpodoxime 200 MG TAB PO (08:28)
[2025-09-11] MEDS: Citalopram 20 MG TAB PO (08:28)
[2025-09-11] MEDS: Metoprolol CR 100 MG TABCR PO ×2 (08:28→20:11)
[2025-09-11] MEDS: Furosemide 20 MG TAB PO (08:28)
--- NOTE | 2025-09-11 11:02 | PTTR_ITS ---
PT Notes Visit Reasons: Failure to Thrive Inpatient Physical Therapy Treatment Note [facility] Date: 09/11/2025 PRECAUTIONS: Standard, fall, fear and anxiety of movement. SUBJECTIVE: Pt reported feeling well, and slept well. OBJECTIVE: General observation. Pt lying in bed watching tv when PT entered. Pt continues with difficulties with acknowledgement of right side. ? ? PAIN: No pain reported VITALS: ? Monitored by Nursing Therapeutic Activities ([id number][]): Direct one-on-one instruction in dynamic act ivities to improve functional performance. ? BED MOBILITY/TRANSFERS? Rolling R: Min A with verbal and tactile cueing from hand placement and LE placement to provide optimal body mechanics to perform action. ? Supine-sit EOB: supervision for most of the process, pt did need some assistance Min A of 1, just to help move right hip closer to edge of bed ? Sit-supine: Min A of 2 ? Provided skilled cues and instruction on performance and technique throughout.? Bed to chair : nicanor lift 2 assist as therapeutic transfer to establish safe transfer for Nursing staff. Neuromuscular Re-education ([id number][]): Activities that facilitate re-education of movement balance, posture, coordination, and proprioception or kinesthetic sense, requiring skilled tactile and verbal cues ? Exercises/techniques: ? Seated EOB: ? Anterior weight shift with FWW: 2 sets [id number] with rest between s ets, having her hold position for 4 seconds on the last set. Pt seated at EOB and leaning forward to simulate beginning of standing up. ? Pushing feet into the ground: 2sets [id number] with rest between sets, having her hold position for 4 seconds on the last set. Pt would lean forward and push through the walker with both UE to simulate if the pt would stand up. ? Pushing UEs through the walker: 2sets [id number] with rest between sets, having her hold position for 4 seconds on the last set. Pt would shift weight anteriorly and push her heels into the ground to simulate if the pt would stand up. ? Combining all exercises simultaneously: 4sets [id number] with rest between sets, having her hold position for 4 seconds on the last set. ASSESSMENT:? Pt started off feeling well, and was able to move to the EOB with slight assistance to help her move her right hip closer to EOB. Pt became fearful the closer she moved to EOB. Pt started leaning back and had difficulty sitting in an upright position at EOB. DPTS broke down each step to stand hand had the pt perform these exercises to help increase motor control and confidence in herself. Pt needed multiple tactile and verbal cueing but at the end of each exercise she was able to anteriorly weight shift more. When pt combined all motions, she needed verbal and tactile cueing to remember to perform all actions. By the end of the exercise pt was able to perform all actions. DPTS removed the walker and stat in front of pt facing her. DPTS had the pt push through his thighs as if they were the walker to determine strength and motor control. Pt continued to push away and not down to the ground. Pt needed practice and multiple cueing to perform the proper movement pattern. Pt was unable to stand and pt was hoyered 2 assist to the chair. Next session Pt will attempt to perform a sit to stand from chair. PT believes the increase in height of bed and arm rest will allow pt to have her arms underneath her and decrease the amount of work to stand by starting at a greater height. ?PLAN: 1-2x/day, 7 days/week x 1 week. Plan of care has been reviewed with the CLINICAL ANALYST providing the service under Physical Therapy direction. Initiate Physical Therapy intervention for pain management as needed, strengthening, bed mobility, transfers, gait, balance training, and use of assistive device ?TREATMENT CODE/TIME: 59762,30987/9:25am-10:10am DISCHARGE RECOMMENDATION: SNF to computer terminal operator placement
--- NOTE | 2025-09-11 11:46 | OTTR_ITS ---
Occupational Therapy Notes Occupational Therapy Inpatient Treatment Note Date: 09/11/25 PRECAUTIONS: Fall, Standard, DNR/DNI SUBJECTIVE: Pt notes that today is a better day. She is trying to perform her ADLs more (I) and notes that this morning she attempted to wash her own face and (B) UE. She is emotional when it comes to her functional mobility. She notes that she is nervous about standing and walking in general and that this is more of an anxiety about falling. Prior to readmission she did return home and was able to walk but over the 4 days she notes that her anxiety got worse and she was unable to tolerate it. She cries when performing her functional mobility and this is a big limitation in her functional indpendence at this time. OBJECTIVE: PAIN: no c/o pain during OT session. THEREX: OT provided mod vc throughout functional strengthening program with pt today for increased (B) UE and functional strength and safety for ADLs. Pt performed her exercises with yellow theraband 15x each including Bicep Tricep PNF pattern 1&2 Sit ups Push ups in bed for (B) UE arm stability Pull aparts Shoulder flexion, extension and rows Facilitated tricep push ups ASSESSMENT/PLAN: Pt is willing to perform her (B) UE strengthening and is able to progress well. OT and pt discuss continued performance of UE strengthening to promote increased (I). Goal remains to progress (I) in her ADLs and promote strength to (A) with transfers to be able to perform her functional mobility more (I) at this time. She is limited at this time d/t her anxiety and fear of falling. The plan is for her to go to the [facility] on Tuesday. This OT is off until then and education was provided to her and pt on performance of strengthening with yellow band. OT will attempt to resume services on Tuesday prior to discharge. TREATMENT CODES/TIME: [id number], 31 minutes Sridevi Ha OTR/[facility] [place], [place]
--- NOTE | 2025-09-11 12:12 | PDOC.CMPRO ---
Date of service: 09/11/25 Time of Service: 12:12 Care Management Progress Note Progress Note Text Progress Note Text: Arlene had just been assisted into the recliner with the use of a nicanor lift when CM met with her. Quirino was present in the room during this visit. Arlene remains agreeable to SNF placement, and Quirino continues to express that there is no other choice because the care she requires is too much for him. The [facility] offered her a bed for Tuesday, which the patient graciously accepts. Quirino is also agreeable to this plan. CM will reach out to [facility] at the [facility] on tuesday, to go over and finalize coordination details. CM will follow. Discharge Potential Discharge Needs: PCP F/U Appt Anticipated Barriers to Discharge: Bed availability Patient/Family Education Needs: Review discharge instructions, discuss [facility] Transportation: [facility] Transportation: Wheel chair van Plan: Arlene has a bed offer at the [facility] for Tuesday. She will transport via [facility] wheelchair van. CM will contact Jany at the [facility] on Tuesday to finalize coordination. Social Determinants of Health Screening Social Determinants of health last assessed in clinic: 09/11/25 Will the Patient Participate in the Screening?: Yes Do you worry about having a steady place to live?: no Problems where you live: no known problems In the past 12 months, have you had to go without electric, gas, oil or water in your home?: no 1. Within the past 12 months, we worried whether our food would run out before we got money to buy more.: Never true 2. Within the past 12 months, the food we bought just didn't last and we didn't have money to get more.: Never true Has lack of transportation kept you from medical appointments or from doing things needed for daily living?: no Has anyone in your life made you feel unsafe or unsupported?: no How hard is it for you to pay for the very basics like food, housing, medical care, and heating? Would you say it is:: Not hard at all Do you want help finding or keeping work or a job?: I do not need or want help If for any reason you need help with day-to-day activities such as bathing, preparing meals, shopping, managing finances, etc., do you get the help you need?: I don?t need any help How often do you feel lonely or isolated from those around you?: Never Do you speak a language other than [place] at home?: No
--- NOTE | 2025-09-11 13:48 | W.PM.PROGNOT ---
Date of Service Date of service: 09/11/25 Time of Service: 13:48 Assessment and Plan Assessment and plan (1) Failure to thrive in adult: Start date: 09/10/25 Start time: 09:45 Status: Acute Assessment and plan: Multiple past failed discharges to home Work-up in ED, no acute medical condition but now has cystitis as per urine culture Still unsafe to discharge home- SNF on Tuesday Ongoing f/u by case management, PT/OT consult for discharge planning, anticipate discharge to the [facility] on Tuesday (2) Anxiety: Start date: 09/10/25 Start time: 09:45 Status: Chronic Assessment and plan: Continue clonidine as per previous stay - will continue to monitor for effectiveness Improving anxiety; this was a major factor in her ability to ambulate for her recurrent admissions. During last stay her med were adjusted and anxiety resolved with low-dose clonidine twice a day after the patient had failed clonazepam and gabapentin. If clonidine is effective consider discharging on clonidine - consider transition to patch if low dosage available (3) Klebsiella cystitis: Status: Acute Assessment and plan: Now on Cefpodoxime s/p culture results - renal dosing (4) Pyuria: Start date: 09/10/25 Start time: 09:45 Status: Acute Assessment and plan: On admission no reported fever dysuria frequency or urgency- but acute ambulatory dysfunction and similar presentation to past UTI As above (5) Ambulatory dysfunction: Start date: 09/10/25 Start time: 09:46 Status: Chronic Assessment and plan: Secondary to anxiety from fear of falling maintain fall precautions, PT/OT (6) Non-insulin dependent type 2 diabetes mellitus: Start date: 09/10/25 Start time: 09:46 Status: Acute Assessment and plan: Ongoing diabetic diet with blood sugar checks with sliding scale AC last A1C was 5.9 On home medicine regimen (7) (HFpEF) heart failure with preserved ejection fraction: Start date: 09/10/25 Start time: 09:46 Status: Acute Assessment and plan: No exacerbation hold furosemide d/t increased BUN and Cr trending up echo from 02/2025 Conclusion Normal left ventricular wall thickness and chamber size. Ejection fraction is 60 to 65%. Wall motion is normal Normal right ventricular size and function Mildly dilated left atrium. Normal right atrial size Aortic valve is sclerotic and probably trileaflet. There is no aortic stenosis or regurgitation Mitral annular calcification. Mild mitral regurgitation Estimated right ventricular systolic pressure is 22 mmHg (8) Atrial fibrillation: Start date: 09/10/25 Start time: :46 Status: Chronic Assessment and plan: Rate controlled on metoprolol not anticoagulated d/t fall risk but as per cardiology in 12/2022 despite [id number] indicating that anticoagulation would have been beneficial, due to the risk of worsenign anemia and concern from patient that she would not be able to afford the therapy , anticoagulation was not pursued - recommendation for outpatient cardiology referral to discuss anticoagulation (9) Depression: Start date: 09/10/25 Start time: :46 Status: Chronic Assessment and plan: Continue HS Remeron (10) CKD (chronic kidney disease): Start date: 09/10/25 Start time: 46 Status: Chronic Assessment and plan: Remains around baseline with up trend and increased BUN pointing to dehydration Hold lasix BMP in AM Continue to avoid nephrotoxic drugs, renal dosing as needed. (11) Hypothyroidism (acquired): Start date: 09/10/25 Start time: :46 Status: Acute Assessment and plan: Continue Synthroid last TSH 6.05 on aug 13, 2025- T4 was 1.17- outpatietn f/u (12) Obesity (BMI 30.0-34.9): Start date: 09/10/25 Start time: :46 Status: Acute Assessment and plan: Nutritional consultation pending Patient counseled re: GLP-1 on day #2 - outpatient follow-up with PCP if this is an option (13) On deep vein thrombosis (DVT) prophylaxis: Start date: 09/10/25 Start time: 09:47 Status: Acute Assessment and plan: Ongoing Lovenox discussed with Dr. Dent Subjective Subjective Patient reports: no new complaints, feels better, tolerating liquids well, voiding w/o difficulty, flatus and bowel movement; denies diarrhea, nausea, vomiting, shortness of breath or fever Exam Narrative Exam Narrative: Elderly female frail sitting up in her bed w/o distress- pleasant and smiling. Opened non-healing scalp area s/p craniotomy and radiation therapy for at the top of her head with intact mepilex dressing, alopecia that starting at the old surgical lines. Sclera is non-icteric, oral mucosa is moist; Alert and oriented X3 w/o focal neurological deficits, cardiovascular regular rate and rhythm, + murmur PPPX4 , respirations are unlabored- clear lungs bilaterally - abdomennon-distended , soft and non-tender - bowel sounds are present neurologic, RASS 0, congruent mood and affect Objective Last Vital Signs Temp 35.8 C L 09/11/25 07:25 Pulse 66 09/11/25 07:25 Resp 16 09/11/25 07:25 BP 148/60 H 09/11/25 07:25 Pulse Ox 100 09/11/25 07:25 Laboratory Results - last 24 hr 09/11/25 06:30 WBC 9.12 RBC 3.48 L Hgb 10.9 L Hct 34.0 L MCV 98 H MCH 31.3 MCHC 32.1 RDW 14.3 Plt Count 145 MPV 10.4 Immature Gran % 0.4 Neutrophils % 68.5 Lymphocytes % 15.0 Monocytes % 4.6 Eosinophils % 11.1 Basophils % 0.4 Nucleated RBC % 0.0 Absolute Neutrophils 6.24 Absolute Lymphocytes 1.37 Absolute Monocytes 0.42 Absolute Eosinophils 1.01 H Absolute Basophils 0.04 Sodium 139 Potassium 4.4 Chloride 107 Carbon Dioxide 24.9 Anion Gap 7.1 BUN 49 H Creatinine 1.82 H Est GFR (CKD-EPI 2020) 26.60 Glucose 116 H Calcium 9.8 VTE Prohylaxis Risk Level: Moderate/High Risk Contraindications: None Prophylaxis: Pharmacologic Time Spent with Patient Time Spent with Patient: >50 minutes Time was spent: preparing to see the patient(eg.review tests), obtaining and/or reviewing separately otained hiistory, ordering medications,tests, procedures, referring, communicating with other health home visit field care manager, indepentently interpreting results, counseling the patient, care coordination and other
[2025-09-11] MEDS: Lactated Ringers 1,000 ML 75 ML IV (15:55)
--- NOTE | 2025-09-11 16:12 | PT.INTREAT ---
PT Notes Visit Reasons: Failure to Thrive Inpatient Physical Therapy Treatment Note [facility] Date: 09/11/25 2nd session PRECAUTIONS: Standard, fall, fear and anxiety of movement SUBJECTIVE: Pt felt well, and a little tired. Pt unable to remember morning session or her last admission in which she was walking >150 feet with FWW CGA with w/c follow OBJECTIVE:? ? present at start of session then DPTS asked him to leave the room as his demeanor was negative influence on Arlene. ? PAIN: no pain VITALS: ? Monitored by nursing Therapeutic Activities (15010e[]): Direct one-on-one instruction in dynamic activities to improve functional performance. ? BED MOBILITY/TRANSFERS? Rolling L/R: Rolling to the right pt is fearful and uneasy and needs multiple verbal and tactile cueing with reassurance everything is okay. ? Rolling to the left supervision, may need light assistance with hips. ? Sit-stand: Min A of 1. PT needs to not pull to much on the pt to help as it makes her not feel in control and will cause her to become fearful. ? Stand-sit: Min A of 1 to help pt with controlled decent. ? PT [facility] Val[facility] stands due to pt being hoyered back to bed prior to perform toiletry hygiene. ? Provided skilled cues and instruction on performance and technique throughout. Neuromuscular Re-education ([id number][]): Activities that facilitate re-education of movement balance, posture, coordination, and proprioception or kinesthetic sense, requiring skilled tactile and verbal cues These tasks performed prior to stand from elevated height ? Exercises/techniques: From recliner elevated surface 21 inches from floor ?Anterior weight shift with FWW: 1 sets x5reps with rest between sets, having her hold position for 4 seconds on the last set. Pt seated at EOB and leaning forward to simulate beginning of standing up. ? Pushing feet into the ground: 1sets x5reps with rest between sets, having her hold position for 4 seconds on the last set. Pt would lean forward and push through the walker with both UE to simulate if the pt would stand up. ? Pushing UEs through the arm rest: 1sets x5reps with rest between sets, having her hold position for 4 seconds on the last set. Pt would shift weight anteriorly and push her heels into the ground to simulate if the pt would stand up. ? Combining all exercises simultaneously: 2sets x5reps with rest between sets, having her hold position for 4 seconds on the last set. ASSESSMENT:?Pt was back in bed prior to session. Pt was able to perform a full glute bridge in bed allowing PT to align the Valente sling around the pt. Pt was Hoyered to the recliner to initiate the pt to stand as it recliner is from a higher surface 21 inches, and has arm rest allowing pt to push through more optimally compared to pushing through the walker. After exercises to facilitate proper motor recruitment in attempts to stand. PT asked the pt to stand. Pt had a difficult time initiating standing from the recliner. Pt became fearful and emotional about standing. Pt was able to slide her hips forward allowing herself to place her feet fully on the ground. Pt continued to need more time to think about where to place her hands. Pt would fidget her hands from walker to arm rest and back. Pt tried sliding back into the chair saying ?I can?t? while crying. Once PT was able to convince pt to slide forward by asking her to get her heels on the ground. PT and DPTS held the director of women's services pad behind the pt and didn?t let her slide back again. It took multiple attempt and multiple tries but pt was able to start the process of standing by herself that her buttocks lifted from the recliner and both PT and DPTS lifted the director of women's services pad out from under pt. Pt cried more, PT reassured pt she was able to stand. DPTS had the pt place her feet underneath her to prevent her from sliding. DPTS then raised his hand in front of the pt and had her anterior weight shift to optimal position to stand and had pt push her upper chest into his hand. Pt push as hard as she could and DPTS assured she wasn?t going to fall forward. After a couple of weight shifts forward and hands on the arm rest pt finally stood up. Pt was afraid and leaning back as she stood up, saying ?let me down? Pt was holding herself up the whole time, and PT acknowledge that and help her descend to the recliner. Pt said OKAY that?s enough for today and had tears in her eyes. DPTS to the patient the best thing for her and one of the best ways to get over that fear is to stand up again and not wait. After some thought Pt got in position and needed 3 tries and words of encouragement but was able to stand. This time pt leaned back further once she stood. Her feet were not completely underneath her and she rolled the walker forward. Pt needed multiple verbal and tactile cueing for hand, hip, and foot placement. Pt also needed cueing for weight shifting. Pt was able to stand today. Next session PT wants pt to attempt to stand again, and hopefully attempt a step turn to the commode as to increase function for ADL?s. ?PLAN: 1-2x/day, 7 days/week x 1 week. Plan of care has been reviewed with the [facility] [employer] providing the service under Physical Therapy direction. Initiate Physical Therapy intervention for pain management as needed, strengthening, bed mobility, transfers, gait, balance training, and use of assistive device ?TREATMENT CODE/TIME:27556, 95991/1:45pm-2:35pm DISCHARGE RECOMMENDATION: SNF to medical records manager rehab Written By Med RÍOS Supervised BY Ankita Vidal PT
[2025-09-11 19:25] VITALS: BP 126/54; PULSE 68; RESP 18; TEMP 35.7; O2SAT 99
[2025-09-11] MEDS: Simvastatin 20 MG TAB PO (20:11)
[2025-09-11] MEDS: Mirtazapine 15 MG TAB 30 MG PO (20:11)
[2025-09-12] MEDS: Lactated Ringers 1,000 ML 75 ML IV (05:08)
[2025-09-12] MEDS: Levothyroxine 88 MCG TAB PO (05:44)
[2025-09-12 06:40] LABS: Abs Immature Grans 0.04 10^3/uL (0.0-0.06); HCT 34.0 % (36.0-46.0); HGB 11.0 g/dL (11.2-15.7); Immature Grans % 0.5 %; MCH 31.8 pg (27.0-33.0); MCHC 32.4 % (32.0-36.0); MCV 98 fL (80-95); MPV 10.7 fL (8.0-11.0); Platelet Count 125 10^3/uL (130-400); RBC 3.46 10^6/uL (3.93-5.22); RDW 14.3 % (11.7-14.6); RDW-SD 51.0 fL; WBC 8.02 10^3/uL (4.4-10.8)
[2025-09-12 07:08] LABS: Anion Gap 6.6 mmol/L (3-11); BUN 41 mg/dL (9-23); CO2 23.4 mmol/L (20.0-31.0); Calcium 9.4 mg/dL (8.3-10.6); Chloride 109 mmol/L (98-107); Glucose 110 mg/dL (74-106); Potassium 4.0 mmol/L (3.5-5.1); Sodium 139 mmol/L (136-145)
[2025-09-12 07:34] VITALS: BP 143/75; PULSE 71; RESP 16; TEMP 36.7; O2SAT 98
[2025-09-12] MEDS: glipiZIDE 10 MG TAB PO ×2 (08:28→17:32)
[2025-09-12] MEDS: Nystatin CREAM 15 GM TUBE TP ×2 (08:28→19:56)
[2025-09-12] MEDS: Insulin Aspart 300 UNITS/3 ML PEN SC ×2 (08:29→12:06)
[2025-09-12] MEDS: Ferrous Gluconate 324 MG TAB PO (08:29)
[2025-09-12] MEDS: Cefpodoxime 200 MG TAB PO (08:29)
[2025-09-12] MEDS: Enoxaparin 30 MG/0.3 ML SYR SC (08:29)
[2025-09-12] MEDS: Citalopram 20 MG TAB PO (08:29)
[2025-09-12] MEDS: cloNIDine 0.1 MG TAB PO ×2 (08:29→19:56)
[2025-09-12] MEDS: metFORMIN 500 MG TAB 1000 MG PO ×2 (08:29→17:33)
[2025-09-12] MEDS: Metoprolol CR 100 MG TABCR PO ×2 (08:29→19:56)
[2025-09-12] MEDS: Normal Saline Flush 10 ML SYR IVP (08:30)
--- NOTE | 2025-09-12 09:34 | PGE_ITS ---
Date of Service Date of service: 09/12/25 Time of Service: 09:34 Assessment and Plan Assessment and plan (1) Failure to thrive in adult: Start date: 09/10/25 Start time: 09:45 Status: Acute Assessment and plan: Multiple past failed discharges to home Work-up in ED, no acute medical condition but later had a confirmed cystitis as per urine culture Still unsafe to discharge home- [facility] on Tuesday Ongoing f/u by case management, PT/OT (2) Anxiety: Start date: 09/10/25 Start time: 09:45 Status: Chronic Assessment and plan: Ongoing clonidine as per previous stay - improving Improving anxiety; this was a major factor in her ability to ambulate for her recurrent admissions. Consideration to resume seroquel if needed During last stay her med were adjusted and anxiety resolved with low-dose clonidine twice a day after the patient had failed clonazepam and gabapentin. If clonidine is effective consider discharging on clonidine - (3) Klebsiella cystitis: Status: Acute Assessment and plan: Ongoing Cefpodoxime s/p urine culture results - renal dosing (4) Pyuria: Start date: 09/10/25 Start time: 09:45 Status: Acute Assessment and plan: On admission no reported fever or symptoms- but acute ambulatory dysfunction and similar presentation when Dx with past UTI As above (5) Ambulatory dysfunction: Start date: 09/10/25 Start time: 09:46 Status: Chronic Assessment and plan: Secondary to anxiety from fear of falling maintain fall precautions, improving as per PT- was standing up at beside X2 on 09/11/25 ongoing PT/OT : the patient was able to stand up w PT - improving - will continue to monitor (6) Non-insulin dependent type 2 diabetes mellitus: Start date: 09/10/25 Start time: 09:46 Status: Acute Assessment and plan: Ongoing diabetic diet with blood sugar checks with sliding scale AC last A1C was 5.9 Continue home medicine regimen (7) (HFpEF) heart failure with preserved ejection fraction: Start date: 09/10/25 Start time: 09:46 Status: Acute Assessment and plan: No exacerbation hold furosemide d/t increased BUN and Cr trend -resume 09/14/2025 echo from 02/2025 Conclusion Normal left ventricular wall thickness and chamber size. Ejection fraction is 6 0 to 65%. Wall motion is normal Normal right ventricular size and function Mildly dilated left atrium. Normal right atrial size Aortic valve is sclerotic and probably trileaflet. There is no aortic stenosis or regurgitation Mitral annular calcification. Mild mitral regurgitation Estimated right ventricular systolic pressure is 22 mmHg (8) Dehydration: Status: Resolved Assessment and plan: As per point 7 Bun /Cr improving continue slow IVF Monitor for fluid overload (9) Atrial fibrillation: Start date: 09/10/25 Start time: 09:46 Status: Chronic Assessment and plan: Rate controlled ongoing home dose metoprolol not anticoagulated d/t fall risk but as per cardiology in 12/2022 despite [id number] indicating that anticoagulation would have been beneficial, due to the risk of worsening anemia and concern from patient that she would not be able to afford the therapy , anticoagulation was not pursued - recommendation for outpatient cardiology referral to discuss anticoagulation (10) Depression: Start date: 09/10/25 Start time: 09:46 Status: Chronic Assessment and plan: Ongoing HS Remeron (11) CKD (chronic kidney disease): Start date: 09/10/25 Start time: 09:46 Status: Chronic Assessment and plan: Around baseline with up trend and increased BUN pointing to dehydration Hold lasix - resume 09/14/25 BMP in AM Continue to avoid nephrotoxic drugs, renal dosing as needed. (12) Hypothyroidism (acquired): Start date: 09/10/25 Start time: 09:46 Status: Acute Assessment and plan: Home dose Levothyroxine last TSH 6.05 on aug 13, 2025- T4 was 1.17- outpatient f/u (13) Obesity (BMI 30.0-34.9): Start date: 09/10/25 Start time: 09:46 Status: Acute Assessment and plan: Nutritional consultation pending Patient previously counseled re: GLP-1 - outpatient follow-up with PCP if this is an option (14) On deep vein thrombosis (DVT) prophylaxis: Start date: 09/10/25 Start time: 09:47 Status: Acute Assessment and plan: Ongoing LMWH - platelets 125 from 145- CBC in AM discussed with Dr. Dent Subjective Subjective Patient reports: feels better, tolerating liquids well, tolerating a regular diet, voiding w/o difficulty, no bowel movement and afebrile; denies nausea or shortness of breath Exam Narrative Exam Narrative: Frail elderly female sitting up in her bed w/o distress family at bedside- pleasant and smiling. Opened non-healing scalp area s/p craniotomy and radiation therapy for at the top of her head with intact mepilex dressing, alopecia that starting at the old surgical lines. Sclera is non-icteric, no JVD, oral mucosa is moist; Alert and oriented X3 w/o focal neurological deficits, cardiovascular regular rate and rhythm, + murmur , PPPX4 , respirations are unlabored- clear lungs bilaterally - abdomen is non-distended , soft and non-tender - bowel sounds are present neurologic, RASS 0, congruent mood and affect Objective Last Vital Signs Temp 36.7 C 09/12/25 07:34 Pulse 71 09/12/25 07:34 Resp 16 09/12/25 07:34 BP 143/75 H 09/12/25 07:34 Pulse Ox 98 09/12/25 07:34 Laboratory Results - last 24 hr 09/12/25 06:10 WBC 8.02 RBC 3.46 L Hgb 11.0 L Hct 34.0 L MCV 98 H MCH 31.8 MCHC 32.4 RDW 14.3 Plt Count 125 L MPV 10.7 Immature Gran % 0.5 Neutrophils % 67.6 Lymphocytes % 15.2 Monocytes % 6.0 Eosinophils % 10.1 Basophils % 0.6 Nucleated RBC % 0.0 Absolute Neutrophils 5.42 Absolute Lymphocytes 1.22 Absolute Monocytes 0.48 Absolute Eosinophils 0.81 H Absolute Basophils 0.05 Sodium 139 Potassium 4.0 Chloride 109 H Carbon Dioxide 23.4 Anion Gap 6.6 BUN 41 H Creatinine 1.70 H Est GFR (CKD-EPI 2020) 28.78 Glucose 110 H Calcium 9.4 VTE Prohylaxis Risk Level: Moderate/High Risk Contraindications: None Prophylaxis: Pharmacologic Time Spent with Patient Time Spent with Patient: >50 minutes Time was spent: preparing to see the patient(eg.review tests), obtaining and/or reviewing separately otained hiistory, ordering medications,tests, procedures, referring, communicating with other health health care specialist, indepentently interpreting results, counseling the patient, care coordination and other
[2025-09-12 19:28] VITALS: BP 123/50; PULSE 73; RESP 16; TEMP 36.7; O2SAT 98
[2025-09-12] MEDS: Simvastatin 20 MG TAB PO (19:56)
[2025-09-12] MEDS: Mirtazapine 15 MG TAB 30 MG PO (19:56)
[2025-09-13] MEDS: Levothyroxine 88 MCG TAB PO (05:25)
[2025-09-13 07:03] LABS: Abs Immature Grans 0.04 10^3/uL (0.0-0.06); HCT 35.5 % (36.0-46.0); HGB 11.5 g/dL (11.2-15.7); Immature Grans % 0.6 %; MCH 31.9 pg (27.0-33.0); MCHC 32.4 % (32.0-36.0); MCV 98 fL (80-95); MPV 10.6 fL (8.0-11.0); Platelet Count 139 10^3/uL (130-400); RBC 3.61 10^6/uL (3.93-5.22); RDW 13.9 % (11.7-14.6); RDW-SD 51.0 fL; WBC 6.89 10^3/uL (4.4-10.8)
[2025-09-13 07:21] LABS: Magnesium 1.5 mg/dL (1.6-2.6)
[2025-09-13 07:23] LABS: Anion Gap 8.5 mmol/L (3-11); BUN 33 mg/dL (9-23); CO2 25.5 mmol/L (20.0-31.0); Calcium 9.6 mg/dL (8.3-10.6); Chloride 109 mmol/L (98-107); Glucose 130 mg/dL (74-106); Potassium 4.3 mmol/L (3.5-5.1); Sodium 143 mmol/L (136-145)
[2025-09-13] MEDS: Citalopram 20 MG TAB PO (07:57)
[2025-09-13] MEDS: cloNIDine 0.1 MG TAB PO ×3 (07:57→21:57)
[2025-09-13] MEDS: Ferrous Gluconate 324 MG TAB PO (07:57)
[2025-09-13] MEDS: Metoprolol CR 100 MG TABCR PO ×2 (07:57→21:58)
[2025-09-13] MEDS: metFORMIN 500 MG TAB 1000 MG PO (07:57)
[2025-09-13] MEDS: glipiZIDE 10 MG TAB PO ×2 (07:58→16:40)
[2025-09-13] MEDS: Cefpodoxime 200 MG TAB PO ×2 (07:58→21:57)
[2025-09-13] MEDS: Enoxaparin 30 MG/0.3 ML SYR SC (07:58)
[2025-09-13] MEDS: Magnesium Oxide 400 MG TAB PO ×2 (09:07→21:58)
--- NOTE | 2025-09-13 09:17 | CMPROGNOTE_ITS ---
Date of service: 09/13/25 Time of Service: 09:17 Care Management Progress Note Progress Note Text Progress Note Text: No changes in plan. Discharge anticipated for Tuesday to the [facility]. Discharge Potential Discharge Needs: PCP F/U Appt Anticipated Barriers to Discharge: None Identified Patient/Family Education Needs: Review discharge instructions, discuss Ask Me Three Transportation: RCT RCT Transportation: Wheel chair van Plan: Arlene has a bed offer at the [facility] for Tuesday. She will transport via RCT wheelchair van. CM will contact Jany at the [facility] on Tuesday to finalize coordination. Social Determinants of Health Screening Social Determinants of health last assessed in clinic: 09/13/25 Will the Patient Participate in the Screening?: Yes Do you worry about having a steady place to live?: no Problems where you live: no known problems In the past 12 months, have you had to go without electric, gas, oil or water in your home?: no 1. Within the past 12 months, we worried whether our food would run out before we got money to buy more.: Don't know/refused 2. Within the past 12 months, the food we bought just didn't last and we didn't have money to get more.: Don't know/refused Has lack of transportation kept you from medical appointments or from doing things needed for daily living?: no Has anyone in your life made you feel unsafe or unsupported?: no How hard is it for you to pay for the very basics like food, housing, medical care, and heating? Would you say it is:: Not hard at all Do you want help finding or keeping work or a job?: I do not need or want help If for any reason you need help with day-to-day activities such as bathing, preparing meals, shopping, managing finances, etc., do you get the help you need?: I don?t need any help How often do you feel lonely or isolated from those around you?: Never Do you speak a language other than Mongolian at home?: No
[2025-09-13] MEDS: Nystatin CREAM 15 GM TUBE TP ×2 (10:04→22:01)
--- NOTE | 2025-09-13 10:06 | W.PM.PROGNOT ---
Date of Service Date of service: 09/13/25 Time of Service: 10:06 Assessment and Plan Assessment and plan (1) Failure to thrive in adult: Start date: 09/10/25 Start time: 09:45 Status: Acute Assessment and plan: Previous failed discharges to home Ongoing cystitis/UTI treatment as per urine culture D/C to the [facility] on Tuesday Ongoing f/u by case management, PT/OT (2) Anxiety: Start date: 09/10/25 Start time: 09:45 Status: Chronic Assessment and plan: Ongoing clonidine as per previous stay - improving mobility and anxiety This was a major factor in her ability to ambulate for her recurrent admissions. Consideration to resume seroquel if needed but the patient has no behavioral outburst and no delirium as HS During last stay her med were adjusted and anxiety resolved with low-dose clonidine twice a day after the patient had failed clonazepam and gabapentin. Discharging on clonidine - (3) Klebsiella cystitis: Status: Acute Assessment and plan: Ongoing Cefpodoxime s/p urine culture results - 5 days of treatment (4) Ambulatory dysfunction: Start date: 09/10/25 Start time: 09:46 Status: Chronic Assessment and plan: Improving - OOB to chair with FWW and PT today Secondary to anxiety from fear of falling maintain fall precautions, improving as per PT- was standing up at beside X2 on 09/11/25 ongoing PT/OT (5) Non-insulin dependent type 2 diabetes mellitus: Start date: 09/10/25 Start time: 09:46 Status: Acute Assessment and plan: Continue diabetic diet with blood sugar checks with sliding scale AC last A1C was 5.9 Continue home medicine regimen- metformin adjusted to 500 mg PO BID as per renal function (6) (HFpEF) heart failure with preserved ejection fraction: Start date: 09/10/25 Start time: 09:46 Status: Acute Assessment and plan: No exacerbation hold furosemide d/t increased BUN and Cr trend -resume 09/14/2025 echo from 02/2025 Conclusion Normal left ventricular wall thickness and chamber size. Ejection fraction is 60 to 65%. Wall motion is normal Normal right ventricular size and function Mildly dilated left atrium. Normal right atrial size Aortic valve is sclerotic and probably trileaflet. There is no aortic stenosis or regurgitation Mitral annular calcification. Mild mitral regurgitation Estimated right ventricular systolic pressure is 22 mmHg (7) Dehydration: Status: Resolved Assessment and plan: As per point 7 Bun /Cr improving IVF stopped Monitor for fluid overload (8) Atrial fibrillation: Start date: 09/10/25 Start time: 09:46 Status: Chronic Assessment and plan: Ongoing rate controlled ongoing home dose metoprolol not anti-coagulated d/t fall risk but as per cardiology in 12/2022 despite [id number] indicating that anticoagulation would have been beneficial, due to the risk of worsening anemia and concern from patient that she would not be able to afford the therapy , anticoagulation was not pursued - recommendation for outpatient cardiology referral to discuss anticoagulation (9) Depression: Start date: 09/10/25 Start time: 09:46 Status: Chronic Assessment and plan: On Remeron (10) CKD (chronic kidney disease): Start date: 09/10/25 Start time: 09:46 Status: Chronic Assessment and plan: Around baseline with up trend and increased BUN pointing to dehydration now Lasix - resume 09/14/25 BMP in AM Continue to avoid nephrotoxic drugs, renal dosing as needed. (11) Hypothyroidism (acquired): Start date: 09/10/25 Start time: 09:46 Status: Acute Assessment and plan: Home dose Levothyroxine last TSH 6.05 on aug 13, 2025- T4 was 1.17- outpatient f/u (12) Obesity (BMI 30.0-34.9): Start date: 09/10/25 Start time: 09:46 Status: Acute Assessment and plan: Nutritional consultation pending Patient previously counseled re: GLP-1 - outpatient follow-up with PCP if this is appropriate for this patient with ongoing depression (13) On deep vein thrombosis (DVT) prophylaxis: Start date: 09/10/25 Start time: 09:47 Status: Acute Assessment and plan: Continue LMWH - discussed with Dr. Dent Subjective Subjective Patient reports: no new complaints, tolerating liquids well, tolerating a regular diet, voiding w/o difficulty (Incontinent but can use BSC), flatus, bowel movement, diarrhea and other (Crying and worried that she will never go back home- feels that the [facility] is not home); denies still having pain, nausea, vomiting, shortness of breath or fever Exam Narrative Exam Narrative: Frail elderly female sitting up in recliner w/o distress but crying as per subjective note portion- at bedside- dressing to scalp area -mepilex dressing DCI , ongoing alopecia that starting at the old surgical lines. Sclera is non-icteric, Alert and oriented X3 w/o focal neurological deficits, cardiovascular regular rate and rhythm, + murmur , PPPX4 , respirations are unlabored- clear lungs bilaterally - abdomen is non-distended , soft and non-tender - bowel sounds are present Objective Last Vital Signs Temp 36.7 C 09/12/25 19:28 Pulse 73 09/12/25 19:28 Resp 16 09/12/25 19:28 BP 123/50 L 09/12/25 19:28 Pulse Ox 98 09/12/25 19:28 Laboratory Results - last 24 hr 09/13/25 06:43 WBC 6.89 RBC 3.61 L Hgb 11.5 Hct 35.5 L MCV 98 H MCH 31.9 MCHC 32.4 RDW 13.9 Plt Count 139 MPV 10.6 Immature Gran % 0.6 Neutrophils % 66.4 Lymphocytes % 16.4 Monocytes % 5.1 Eosinophils % 10.9 Basophils % 0.6 Nucleated RBC % 0.0 Absolute Neutrophils 4.58 Absolute Lymphocytes 1.13 L Absolute Monocytes 0.35 Absolute Eosinophils 0.75 H Absolute Basophils 0.04 Sodium 143 Potassium 4.3 Chloride 109 H Carbon Dioxide 25.5 Anion Gap 8.5 BUN 33 H Creatinine 1.47 H Est GFR (CKD-EPI 2020) 34.04 Glucose 130 H Calcium 9.6 Magnesium 1.5 L VTE Prohylaxis Risk Level: Moderate/High Risk Contraindications: None Prophylaxis: Pharmacologic Time Spent with Patient Time Spent with Patient: >50 minutes Time was spent: preparing to see the patient(eg.review tests), obtaining and/or reviewing separately otained hiistory, ordering medications,tests, procedures, referring, communicating with other health acute care certified nursing assistant, indepentently interpreting results, counseling the patient, care coordination and other
[2025-09-13] MEDS: Normal Saline Flush 10 ML SYR IVP (10:29)
[2025-09-13] MEDS: MAGNESIUM SULFATE 2 GM/50 ML BAG IV_INF (10:29)
[2025-09-13] MEDS: Insulin Aspart 300 UNITS/3 ML PEN SC (11:44)
--- NOTE | 2025-09-13 11:55 | PTTR_ITS ---
PT Notes Visit Reasons: Failure to Thrive Inpatient Physical Therapy Treatment Note [facility] Date: 09/13/25 PRECAUTIONS: Standard, Fall, Fear of movement AM Session: SUBJECTIVE: Pt stated they were tired today. Once pt was at the EOB she asked if she was going to the chair. DPTS replied with yes. OBJECTIVE: General observation: Pt laying in bed under multiple blankets as her room is cold, and she looked cold, as PT arrived PAIN: No pain reported VITALS: Monitored by Nursing Therapeutic Activities ([id number][]): ? BED MOBILITY/TRANSFERS? Sit-stand from: ? EOB to stand: Min A of 1 & SBA of 1 with FWW. Recliner to stand: Min A of 1 & SBA of 1 with FWW.? Stand-sit: Min A of 1 w/FWW. Pt unable to control her decent or reach back. Ambulation: 6 feet Min A of 1 with FWW and SBA of 1. ? PM Session: SUBJECTIVE: Pt was crying while seated in recliner with present. Pt asked if she could have some time to calm down. PT obliged. Later PT came back and before entering heard pt speaking with her crying and stated she wanted to go home. OBJECTIVE: PAIN: No pain reported VITALS: Monitored by Nursing Therapeutic Activities ([id number][]): ? Glute Bridges in recliner with back flat:1x8 ? Scootching herself up higher in the recliner with back flat 1x8 ? Triceps push up in recliner: 1x8 ? PT provided tactile cueing for foot and hand placement. ASSESSMENT:? In the AM session Pt was able to stand and ambulate to the recliner with Min A of 1 with FWW and SBA of 1. Pt needed multiple cueing for directions and body position. Pt has decrease in activity tolerance and was not able to stand longer than 20 seconds to ambulate, and 10 seconds from the recliner. After the pt made it to the recliner PT asked pt to try and stand again. After time to process hand placement and shifting weight forward pt was able to, but she wasn?t able to stand for long (less than 10 seconds), and pt was not able to control her decent. Medication seems to be helping the pt, and she becomes flustered and may cry but she is able to calm herself down and attempt tasks that she is being asked to perform. In the PM session pt was depressed and sad she couldn?t go home. She reported her can?t take care of her and she just misses home. Originally PT wanted pt to stand. However, with her crying and being depressed about the situation she is in. PT changed their plan and had the pt perform exercises in the recliner. Pt performed glute bridges. Pt continued to active her quad, thus causing her foot to slip. PT provided tactile cueing for foot placement and on her hamstring to help facilitate pushing her LE into the recliner. Pt may need to be hoyered back to the bed for her safety and staff safety as she was too anxious to attempt standing in the PM. PT applied the Valente mat underneath pt before PT left. ?PLAN: 1-2x/day, 7 days/week x 1 week. Plan of care has been reviewed with the REAR ADMIRAL providing the service under Physical Therapy direction. Initiate Physical Therapy intervention for pain management as needed, strengthening, bed mobility, transfers, gait, balance training, and use of assistive device ?TREATMENT CODE/TIME: AM Session: [id number]/9:10am-9:37am PM Session: [id number]/2:42pm-3:00pm DISCHARGE RECOMMENDATION: SNF to intermediate card tender rehab Written by: Med Funes Supervised by: Ankita Vidal, PT
--- NOTE | 2025-09-13 16:39 | W.PM.PROGNOT ---
Date of Service Date of service: 09/13/25 Time of Service: 10:06 Assessment and Plan Assessment and plan (1) Failure to thrive in adult: Start date: 09/13/25 Start time: 16:40 Status: Acute Assessment and plan: Previous failed discharges to home Ongoing cystitis/UTI treatment as per urine culture D/C to the [facility] on Tuesday Ongoing f/u by case management, PT/OT (2) Anxiety: Start date: 09/13/25 Start time: 16:40 Status: Chronic Assessment and plan: Ongoing clonidine as per previous stay - improving mobility and anxiety This was a major factor in her ability to ambulate for her recurrent admissions. Consideration to resume seroquel if needed but the patient has no behavioral outburst and no delirium as HS During last stay her med were adjusted and anxiety resolved with low-dose clonidine twice a day after the patient had failed clonazepam and gabapentin. Discharging on clonidine - (3) Klebsiella cystitis: Start date: 09/13/25 Start time: 16:40 Status: Acute Assessment and plan: Ongoing Cefpodoxime s/p urine culture results - 5 days of treatment (4) Ambulatory dysfunction: Start date: 09/13/25 Start time: 16:40 Status: Chronic Assessment and plan: Improving - OOB to chair with FWW and PT today Secondary to anxiety from fear of falling maintain fall precautions, improving as per PT- was standing up at beside X2 on 09/11/25 ongoing PT/OT (5) Non-insulin dependent type 2 diabetes mellitus: Start date: 09/10/25 Start time: 09:46 Status: Acute Assessment and plan: Continue diabetic diet with blood sugar checks with sliding scale AC last A1C was 5.9 Continue home medicine regimen- metformin adjusted to 500 mg PO BID as per renal function (6) (HFpEF) heart failure with preserved ejection fraction: Start date: 09/13/25 Start time: 16:41 Status: Acute Assessment and plan: No exacerbation hold furosemide d/t increased BUN and Cr trend -resume 09/14/2025 echo from 02/2025 Conclusion Normal left ventricular wall thickness and chamber size. Ejection fraction is 60 to 65%. Wall motion is normal Normal right ventricular size and function Mildly dilated left atrium. Normal right atrial size Aortic valve is sclerotic and probably trileaflet. There is no aortic stenosis or regurgitation Mitral annular calcification. Mild mitral regurgitation Estimated right ventricular systolic pressure is 22 mmHg (7) Dehydration: Start date: 09/13/25 Start time: 16:41 Status: Resolved Assessment and plan: As per point 7 Bun /Cr improving IVF stopped Monitor for fluid overload (8) Atrial fibrillation: Start date: 09/13/25 Start time: 16:41 Status: Chronic Assessment and plan: Ongoing rate controlled ongoing home dose metoprolol not anti-coagulated d/t fall risk but as per cardiology in 12/2022 despite [id number] indicating that anticoagulation would have been beneficial, due to the risk of worsening anemia and concern from patient that she would not be able to afford the therapy , anticoagulation was not pursued - recommendation for outpatient cardiology referral to discuss anticoagulation (9) Depression: Start date: 09/13/25 Start time: 09:46 Status: Chronic Assessment and plan: On Remeron (10) CKD (chronic kidney disease): Start date: 09/13/25 Start time: 16:41 Status: Chronic Assessment and plan: Around baseline with up trend and increased BUN pointing to dehydration now Lasix - resume 09/14/25 BMP in AM Continue to avoid nephrotoxic drugs, renal dosing as needed. (11) Hypothyroidism (acquired): Start date: 09/13/25 Start time: 16:41 Status: Acute Assessment and plan: Home dose Levothyroxine last TSH 6.05 on aug 13, 2025- T4 was 1.17- outpatient f/u (12) Obesity (BMI 30.0-34.9): Start date: 09/13/25 Start time: 16:41 Status: Acute Assessment and plan: Nutritional consultation pending Patient previously counseled re: GLP-1 - outpatient follow-up with PCP if this is appropriate for this patient with ongoing depression (13) On deep vein thrombosis (DVT) prophylaxis: Start date: 09/13/25 Start time: 16:41 Status: Acute Assessment and plan: Continue LMWH - discussed with Dr. Dent Subjective Subjective Patient reports: no new complaints, tolerating liquids well, tolerating a regular diet, voiding w/o difficulty (Incontinent but can use BSC), flatus, bowel movement, diarrhea and other (Crying and worried that she will never go back home- feels that the [facility] is not home); denies still having pain, nausea, vomiting, shortness of breath or fever Exam Narrative Exam Narrative: Frail elderly female sitting up in recliner w/o distress but crying as per subjective note portion- at bedside- dressing to scalp area -mepilex dressing DCI , ongoing alopecia that starting at the old surgical lines. Sclera is non-icteric, Alert and oriented X3 w/o focal neurological deficits, cardiovascular regular rate and rhythm, + murmur , PPPX4 , respirations are unlabored- clear lungs bilaterally - abdomen is non-distended , soft and non-tender - bowel sounds are present Objective Last Vital Signs Temp 36.7 C 09/12/25 19:28 Pulse 73 09/12/25 19:28 Resp 16 09/12/25 19:28 BP 123/50 L 09/12/25 19:28 Pulse Ox 98 09/12/25 19:28 Laboratory Results - last 24 hr 09/13/25 06:43 WBC 6.89 RBC 3.61 L Hgb 11.5 Hct 35.5 L MCV 98 H MCH 31.9 MCHC 32.4 RDW 13.9 Plt Count 139 MPV 10.6 Immature Gran % 0.6 Neutrophils % 66.4 Lymphocytes % 16.4 Monocytes % 5.1 Eosinophils % 10.9 Basophils % 0.6 Nucleated RBC % 0.0 Absolute Neutrophils 4.58 Absolute Lymphocytes 1.13 L Absolute Monocytes 0.35 Absolute Eosinophils 0.75 H Absolute Basophils 0.04 Sodium 143 Potassium 4.3 Chloride 109 H Carbon Dioxide 25.5 Anion Gap 8.5 BUN 33 H Creatinine 1.47 H Est GFR (CKD-EPI 2020) 34.04 Glucose 130 H Calcium 9.6 Magnesium 1.5 L VTE Prohylaxis Risk Level: Moderate/High Risk Contraindications: None Prophylaxis: Pharmacologic Time Spent with Patient Time Spent with Patient: >50 minutes Time was spent: preparing to see the patient(eg.review tests), obtaining and/or reviewing separately otained hiistory, ordering medications,tests, procedures, referring, communicating with other health lawn care technician, indepentently interpreting results, counseling the patient, care coordination and other
[2025-09-13] MEDS: metFORMIN 500 MG TAB PO (16:40)
[2025-09-13 18:47] VITALS: BP 124/60; PULSE 68; RESP 18; TEMP 36.6; O2SAT 98
[2025-09-13] MEDS: Mirtazapine 15 MG TAB 30 MG PO (21:57)
[2025-09-13] MEDS: Simvastatin 20 MG TAB PO (21:58)
[2025-09-14] MEDS: Levothyroxine 88 MCG TAB PO (05:20)
[2025-09-14 07:42] VITALS: BP 145/62; PULSE 64; RESP 16; TEMP 36.5; O2SAT 100
[2025-09-14 08:19] LABS: Magnesium 2.1 mg/dL (1.6-2.6)
[2025-09-14 08:23] LABS: Anion Gap 7.7 mmol/L (3-11); BUN 29 mg/dL (9-23); CO2 26.3 mmol/L (20.0-31.0); Calcium 9.8 mg/dL (8.3-10.6); Chloride 108 mmol/L (98-107); Glucose 127 mg/dL (74-106); Potassium 4.6 mmol/L (3.5-5.1); Sodium 142 mmol/L (136-145)
--- NOTE | 2025-09-14 09:03 | PT.INTREAT ---
Date of service: 09/14/25 Time of Service: 08:28 PT Notes Visit Reasons: Failure to Thrive SUBJECTIVE: Reports feeling scared and apologing throughout the session, crying. Reports she has not used a walker any time recently but has one at home. OBJECTIVE:? Treatment: supine to sit eventually with mod assist of therapist secondary to multiple failed attempts with min assist and encouragement with patient suddenly crying and collapsing. patient sitting on edge of bed initially with mod assist but then CG assist only attempting sit to stand 6 times with only up to min assist with hands on walker anteriorly, but patient crying and reporting she is unable after these attempts attempted sit to stand 2 times with BRIANA García with both feet blocked to prevent slipping but unsuccessful with min x 2 and patient crying and reporting she is too fearful too perform Dr Dent requested to come to the room by BRIANA García and observed patient's anxiety. will assist with medicatoin changes today to improve her anxiety to allow for successful mobilty patient set up with [employer] tray and observed to feed herself grapes. bed alarm activated. Assessment: 79 year old female admitted for generalized weakness and failure to thrive 4 days after discharge to home from hospital after prolonged hospitalization with multiple medication changes to manage her anxiety. Plan: Continue daily PT as able Billing Charges: Treatment Units Time Duration Manual Therapy (20023) Hands-on techniques to modulate pain increase joint range of motion reduce or eliminate soft tissue swelling, inflammation, or restriction facilitate relaxation and improve contractile and non-contractile tissue extensibility Therapeutic Procedures (30331) Instruction in therapeutic exercises to develop strength and endurance, range of motion and flexibility. HEP instruction and review: Provided skilled instruction in proper exercise performance: Provided skilled manual cues to facilitate proper muscle recruitment and/or movement?pattern: Neurological Re-Education (34262) to improve balance, coordination, kinesthetic and proprioceptive sensations. Ultrasound (29828) to promote healing Gait Training (54409) Therapeutic Activity (23688) instruction in dynamic activities with one on one patient contact by the provider to improve functional performance as follows: 2 30 Self Care Training (16990) Time Coded Treatment Minutes: 30 Total Treatment Time: 30
[2025-09-14] MEDS: cloNIDine 0.1 MG TAB PO ×2 (09:32→20:44)
[2025-09-14] MEDS: QUEtiapine 25 MG TAB PO ×2 (09:32→20:44)
[2025-09-14] MEDS: Magnesium Oxide 400 MG TAB PO ×2 (09:32→20:43)
[2025-09-14] MEDS: Furosemide 20 MG TAB PO (09:33)
[2025-09-14] MEDS: metFORMIN 500 MG TAB PO ×2 (09:33→17:03)
[2025-09-14] MEDS: Ferrous Gluconate 324 MG TAB PO (09:33)
[2025-09-14] MEDS: Metoprolol CR 100 MG TABCR PO ×2 (09:34→20:43)
[2025-09-14] MEDS: glipiZIDE 10 MG TAB PO ×2 (09:34→17:04)
[2025-09-14] MEDS: Cefpodoxime 200 MG TAB PO ×2 (09:34→20:43)
[2025-09-14] MEDS: Nystatin CREAM 15 GM TUBE TP ×2 (09:35→21:12)
[2025-09-14] MEDS: Enoxaparin 40 MG/0.4 ML SYR SC (09:35)
[2025-09-14] MEDS: Normal Saline Flush 10 ML SYR IVP (09:36)
--- NOTE | 2025-09-14 12:05 | W.PM.PROGNOT ---
Date of Service Date of service: 09/14/25 Time of Service: 12:06 Assessment and Plan Assessment and plan (1) Failure to thrive in adult: Status: Acute Assessment and plan: Previous failed discharges to home Ongoing cystitis/UTI treatment as per urine culture D/C to the [facility] on Tuesday Ongoing f/u by case management, PT/OT (2) Anxiety: Status: Chronic Assessment and plan: started on seroquel, continue clonidine (3) Klebsiella cystitis: Status: Acute Assessment and plan: grew klebsiella pneumonia in urine on 09/08/2025 sensitive to cephalosporins, has completed 6 of 7 days of cefpodoxime (4) Ambulatory dysfunction: Status: Chronic Assessment and plan: Secondary to anxiety from fear of falling maintain fall precautions, improving as per PT ongoing PT/OT (5) Non-insulin dependent type 2 diabetes mellitus: Status: Acute Assessment and plan: Continue diabetic diet with blood sugar checks with sliding scale AC last A1C was 5.9 Continue home medicine regimen- metformin adjusted to 500 mg PO BID as per renal function (6) (HFpEF) heart failure with preserved ejection fraction: Status: Acute Assessment and plan: No exacerbation hold furosemide d/t increased BUN and Cr trend -resume 09/14/2025 echo from 02/2025 Conclusion Normal left ventricular wall thickness and chamber size. Ejection fraction is 60 to 65%. Wall motion is normal Normal right ventricular size and function Mildly dilated left atrium. Normal right atrial size Aortic valve is sclerotic and probably trileaflet. There is no aortic stenosis or regurgitation Mitral annular calcification. Mild mitral regurgitation Estimated right ventricular systolic pressure is 22 mmHg (7) Atrial fibrillation: Status: Chronic Assessment and plan: Ongoing rate controlled continue home dose metoprolol not anti-coagulated d/t fall risk but as per cardiology in 12/2022 despite [id number] indicating that anticoagulation would have been beneficial, due to the risk of worsening anemia and concern from patient that she would not be able to afford the therapy , anticoagulation was not pursued - recommendation for outpatient cardiology referral to discuss anticoagulation (8) Depression: Status: Chronic Assessment and plan: On Remeron (9) CKD (chronic kidney disease): Status: Chronic Assessment and plan: Around baseline with up trend and increased BUN pointing to dehydration now Lasix - resume 09/14/25 BMP in AM Continue to avoid nephrotoxic drugs, renal dosing as needed. (10) Hypothyroidism (acquired): Status: Acute Assessment and plan: Home dose Levothyroxine last TSH 6.05 on aug 13, 2025- T4 was 1.17- outpatient f/u (11) Obesity (BMI 30.0-34.9): Status: Acute Assessment and plan: Nutritional consultation Patient previously counseled re: GLP-1 - outpatient follow-up with PCP if this is appropriate for this patient with ongoing depression (12) On deep vein thrombosis (DVT) prophylaxis: Status: Acute Assessment and plan: Continue LMWH - discussed with Dr. Dent Subjective Subjective Patient reports: no new complaints, tolerating liquids well, tolerating a regular diet and afebrile Interval history since last seen: continues to be anxious, seroquel started with good effect Exam Narrative Exam Narrative: Elderly female frail head is atraumatic previous scar from past surgery well-healed does have open nonhealing area at the top of her head Mepilex is intact. Top of her head with alopecia that starts at the surgical lines. Eyes nonicteric noninjected oral mucosa is slightly dry neck full range of motion cardiovascular regular rate and rhythm respirations even and unlabored moves all extremities abdomen soft nontender neurologic she is awake alert oriented no focal deficits psychiatric blunted, Objective Last Vital Signs Temp 36.5 C 09/14/25 07:42 Pulse 64 09/14/25 07:42 Resp 16 09/14/25 07:42 BP 145/62 H 09/14/25 07:42 Pulse Ox 100 09/14/25 07:42 Laboratory Results - last 24 hr 09/14/25 07:25 Sodium 142 Potassium 4.6 Chloride 108 H Carbon Dioxide 26.3 Anion Gap 7.7 BUN 29 H Creatinine 1.46 H Est GFR (CKD-EPI 2020) 34.31 Glucose 127 H Calcium 9.8 Magnesium 2.1 VTE Prohylaxis Risk Level: Moderate/High Risk Contraindications: Medical contrainidcation Prophylaxis: Mechanical Time Spent with Patient Time Spent with Patient: 35-49 minutes Time was spent: preparing to see the patient(eg.review tests), obtaining and/or reviewing separately otained hiistory, ordering medications,tests, procedures, indepentently interpreting results and counseling the patient
[2025-09-14] MEDS: Insulin Aspart 300 UNITS/3 ML PEN SC (12:39)
[2025-09-14 20:41] VITALS: BP 93/48; PULSE 67; RESP 18; TEMP 37
[2025-09-14] MEDS: Mirtazapine 15 MG TAB 30 MG PO (20:44)
[2025-09-14] MEDS: Simvastatin 20 MG TAB PO (20:44)
[2025-09-15] MEDS: Levothyroxine 88 MCG TAB PO (06:00)
[2025-09-15 07:09] VITALS: BP 114/60; PULSE 64; RESP 18; TEMP 36.6; O2SAT 99
[2025-09-15 07:35] LABS: Anion Gap 9.5 mmol/L (3-11); BUN 28 mg/dL (9-23); CO2 25.5 mmol/L (20.0-31.0); Calcium 9.5 mg/dL (8.3-10.6); Chloride 106 mmol/L (98-107); Glucose 132 mg/dL (74-106); Potassium 4.4 mmol/L (3.5-5.1); Sodium 141 mmol/L (136-145)
[2025-09-15] MEDS: Cefpodoxime 200 MG TAB PO (08:15)
[2025-09-15] MEDS: Magnesium Oxide 400 MG TAB PO ×2 (08:15→20:24)
[2025-09-15] MEDS: glipiZIDE 10 MG TAB PO ×2 (08:16→16:07)
[2025-09-15] MEDS: QUEtiapine 25 MG TAB PO ×2 (08:16→20:25)
[2025-09-15] MEDS: metFORMIN 500 MG TAB PO ×2 (08:16→16:07)
[2025-09-15] MEDS: Ferrous Gluconate 324 MG TAB PO (08:16)
[2025-09-15] MEDS: cloNIDine 0.1 MG TAB PO ×2 (08:16→20:24)
[2025-09-15] MEDS: Enoxaparin 40 MG/0.4 ML SYR SC (08:16)
[2025-09-15] MEDS: Metoprolol CR 100 MG TABCR PO ×2 (08:16→20:24)
[2025-09-15] MEDS: Insulin Aspart 300 UNITS/3 ML PEN SC ×3 (08:17→16:59)
[2025-09-15] MEDS: Nystatin CREAM 15 GM TUBE TP ×2 (08:17→20:25)
[2025-09-15] MEDS: Furosemide 20 MG TAB PO (09:24)
--- NOTE | 2025-09-15 11:34 | PTTR_ITS ---
Date of service: 09/15/25 Time of Service: 11:15 PT Notes Visit Reasons: Failure to Thrive SUBJECTIVE: I will do it tomorrow (walk) OBJECTIVE:? patient reported need to urinate. Refused the commode and requested a bed garzon at the end of today's session. Nursing advised. Spouse present upon entering room and left to wait outside the room during session Treatment: supine to sit supervision with minimal cuing Sit to supine supervision with HOB flat and significant cuing and encouragement. able to scoot up in bed with cuing. min assist to reposition shoulders secondary to difficulty following cuing to perform. Bridging, SLR, heel slides, hip abd/add, ankle pumps, quad sets, glut sets, sit ups x 10. UE x 15: horizontal abd, diagonals, biceps, triceps. Assessment: 79 year old female admitted for generalized weakness and failure to thrive 4 days after discharge to home from hospital after prolonged hospitalization with multiple medication changes to manage her anxiety. Still too fearful to ambulate today, but better with bed mobility. Plan: Continue daily PT as able. expect d/c to [facility] tomorrow. Billing Charges: Treatment Units Time Duration Manual Therapy (11706) Hands-on techniques to modulate pain increase joint range of motion reduce or eliminate soft tissue swelling, inflammation, or restriction facilitate relaxation and improve contractile and non-contractile tissue extensibility Therapeutic Procedures (42673) Instruction in therapeutic exercises to develop strength and endurance, range of motion and flexibility. HEP instruction and review: Provided skilled instruction in proper exercise performance: Provided skilled manual cues to facilitate proper muscle recruitment and/or movement?pattern: 1 14 Neurological Re-Education (49706) to improve balance, coordination, kinesthetic and proprioceptive sensations. Ultrasound (28966) to promote healing Gait Training (14033) Therapeutic Activity (83719) instruction in dynamic activitie s with one on one patient contact by the provider to improve functional performance as follows: 0 5 Self Care Training (80233) Time Coded Treatment Minutes: 19 Total Treatment Time: 19
--- NOTE | 2025-09-15 14:50 | PGE_ITS ---
Date of Service Date of service: 09/15/25 Time of Service: 14:49 Assessment and Plan Assessment and plan (1) Failure to thrive in adult: Status: Acute Assessment and plan: Previous failed discharges to home completed cystitis/UTI treatment as per urine culture obtained on 09/08 D/C to the [facility] on Tuesday Ongoing f/u by case management, PT/OT (2) Anxiety: Status: Chronic Assessment and plan: started on seroquel, continue clonidine (3) Klebsiella cystitis: Status: Acute Assessment and plan: grew klebsiella pneumonia in urine on 09/08/2025 sensitive to cephalosporins, has completed 7 of 7 days of cefpodoxime (4) Ambulatory dysfunction: Status: Chronic Assessment and plan: Secondary to anxiety from fear of falling maintain fall precautions, improving as per PT ongoing PT/OT (5) Non-insulin dependent type 2 diabetes mellitus: Status: Acute Assessment and plan: Continue diabetic diet with blood sugar checks with sliding scale AC last A1C was 5.9 Continue home medicine regimen- metformin adjusted to 500 mg PO BID as per renal function (6) (HFpEF) heart failure with preserved ejection fraction: Status: Acute Assessment and plan: No exacerbation hold furosemide d/t increased BUN and Cr trend -resume 09/14/2025 echo from 02/2025 Conclusion Normal left ventricular wall thickness and chamber size. Ejection fraction is 60 to 65%. Wall motion is normal Normal right ventricular size and function Mildly dilated left atrium. Normal right atrial size Aortic valve is sclerotic and probably trileaflet. There is no aortic stenosis or regurgitation Mitral annular calcification. Mild mitral regurgitation Estimated right ventricular systolic pressure is 22 mmHg (7) Atrial fibrillation: Status: Chronic Assessment and plan: Ongoing rate controlled continue home dose metoprolol not anti-coagulated d/t fall risk but as per cardiology in 12/2022 despite [id number] indicating that anticoagulation would have been beneficial, due to the risk of worsening anemia and concern from patient that she would not be able to afford the therapy , anticoagulation was not pursued - recommendation for outpatient cardiology referral to discuss anticoagulation (8) Depression: Status: Chronic Assessment and plan: On Remeron (9) CKD (chronic kidney disease): Status: Chronic Assessment and plan: Around baseline with up trend and increased BUN pointing to dehydration now Lasix - resume 09/14/25 BMP in AM Continue to avoid nephrotoxic drugs, renal dosing as needed. (10) Hypothyroidism (acquired): Status: Acute Assessment and plan: Home dose Levothyroxine last TSH 6.05 on aug 13, 2025- T4 was 1.17- outpatient f/u (11) Obesity (BMI 30.0-34.9): Status: Acute Assessment and plan: Nutritional consultation Patient previously counseled re: GLP-1 - outpatient follow-up with PCP if this is appropriate for this patient with ongoing depression (12) On deep vein thrombosis (DVT) prophylaxis: Status: Acute Assessment and plan: Continue LMWH - discussed with Dr. Dent Subjective Subjective Interval history since last seen: anxious and tearful getting up this morning. c/o indigestion. otherwise no new c/o. hemodynamically stable Exam Narrative Exam Narrative: Elderly female frail head is atraumatic previous scar from past surgery well- healed does have open nonhealing area at the top of her head Mepilex is intact. Top of her head with alopecia that starts at the surgical lines. Eyes nonicteric noninjected oral mucosa is slightly dry neck full range of motion cardiovascular regular rate and rhythm respirations even and unlabored moves all extremities abdomen soft nontender neurologic she is awake alert oriented no focal deficits psychiatric blunted, Objective Last Vital Signs Temp 36.6 C 09/15/25 07:09 Pulse 64 09/15/25 07:09 Resp 18 09/15/25 07:09 BP 114/60 09/15/25 07:09 Pulse Ox 99 09/15/25 07:09 Laboratory Results - last 24 hr 09/15/25 06:50 Sodium 141 Potassium 4.4 Chloride 106 Carbon Dioxide 25.5 Anion Gap 9.5 BUN 28 H Creatinine 1.53 H Est GFR (CKD-EPI 2020) 32.50 Glucose 132 H Calcium 9.5 VTE Prohylaxis Risk Level: Moderate/High Risk Contraindications: None Prophylaxis: Pharmacologic and Mechanical Time Spent with Patient Time Spent with Patient: 35-49 minutes Time was spent: preparing to see the patient(eg.review tests), obtaining and/or reviewing separately otained hiistory, ordering medications,tests, procedures and indepentently interpreting results
[2025-09-15] MEDS: Mirtazapine 15 MG TAB 30 MG PO (20:24)
[2025-09-15] MEDS: Simvastatin 20 MG TAB PO (20:24)
[2025-09-16] MEDS: Levothyroxine 88 MCG TAB PO (06:09)
[2025-09-16] MEDS: Ferrous Gluconate 324 MG TAB PO (08:02)
[2025-09-16] MEDS: metFORMIN 500 MG TAB PO (08:02)
[2025-09-16] MEDS: Furosemide 20 MG TAB PO (08:02)
[2025-09-16] MEDS: cloNIDine 0.1 MG TAB PO (08:02)
[2025-09-16] MEDS: Metoprolol CR 100 MG TABCR PO (08:02)
[2025-09-16] MEDS: glipiZIDE 10 MG TAB PO (08:02)
[2025-09-16] MEDS: Magnesium Oxide 400 MG TAB PO (08:02)
[2025-09-16] MEDS: QUEtiapine 25 MG TAB PO (08:02)
[2025-09-16] MEDS: Insulin Aspart 300 UNITS/3 ML PEN SC (08:03)
[2025-09-16] MEDS: Enoxaparin 40 MG/0.4 ML SYR SC (08:03)
[2025-09-16] MEDS: Normal Saline Flush 10 ML SYR IVP (08:06)
[2025-09-16] MEDS: Nystatin CREAM 15 GM TUBE TP (08:08)
--- NOTE | 2025-09-16 09:49 | CMDISCH_ITS ---
Date of service: 09/16/25 Time of Service: 09:49 LACE Index Scoring Tool Questions: Length of Stay (in days): 7 - 13 Was the patient admitted via the E.D.?: Yes Comorbidities: Diabetes w/o Complication and Liver or Renal Disease E.D. Visits: 4 Answers: Total Score: 17 Risk of Readmission: High Risk Care Management Discharge Plan Reason for Hospitalization: FTT Discharge Plan: Arlene is discharged to the [facility] for resumption of PT and is in need of LTC, due to her limitations in mobility. Arlene will follow up with facility/community providers and continue per her discharge plan of care. [facility] will provide transportation. Patient/Family Education Needs: Review discharge instructions, discuss ask me three. Services Needed at Discharge: Fdc Facility ([facility], coordinated by CM) and Transportation ([facility], coordinated by [facility]) SDOH Health Related Social Needs: Health related social needs daily activities
--- NOTE | 2025-09-16 09:57 | DSE_ITS ---
Date of service: 09/16/25 Time of Service: 10:17 DS: Diagnosis Discharge Diagnosis (1) Failure to thrive in adult: Status: Acute (2) Anxiety: Status: Chronic (3) Klebsiella cystitis: Status: Acute (4) Ambulatory dysfunction: Status: Chronic (5) Non-insulin dependent type 2 diabetes mellitus: Status: Acute (6) (HFpEF) heart failure with preserved ejection fraction: Status: Acute (7) Atrial fibrillation: Status: Chronic (8) Depression: Status: Chronic (9) CKD (chronic kidney disease): Status: Chronic (10) Hypothyroidism (acquired): Status: Acute (11) Obesity (BMI 30.0-34.9): Status: Acute (12) On deep vein thrombosis (DVT) prophylaxis: Status: Acute Discharge Plan Disposition Patient Disposition: Jail Facility(SNF) Anticipated Discharge Date/Time: 09/16/25 10:30 Condition: Stable Condition: Fair Discharge Details Reason For Visit: Failure to Thrive Admit Date/Time: 09/08/25 14:14 Admit Provider: Geoffrey Foster Attending Provider: Geoffrey Foster Primary Care Provider: Geovanna Anders Hospital Course Hospital Course: This is an 79-year-old female with multiple recent hospitalizations for progressive weakness, recurrent ambulatory dysfunction, and severe anxiety related to fear of falling. She was discharged home on 09/04 with increased home health supports. Despite this, she returned on 09/08 due to worsening weakness and inability of her to safely care for her at home. EMS reported the was tearful and physically unable to assist with transfers. On arrival, the patient was hemodynamically stable and felt she was near her baseline but continued to be unable to ambulate even with her walker. There were no new symptoms suggesting infection, stroke, cardiac ischemia, or injury. ED evaluation showed: * EKG: Normal sinus rhythm * CBC: Stable chronic anemia, no leukocytosis * CMP: Mild hyperkalemia to 5.2 (likely hemolyzed); BUN/Cr slightly elevated but improved from prior baseline * Troponin: Negative x2 * UA: Nitrites + leukocyte esterase, asymptomatic ? culture sent Hospital course updates: * During hospitalization, the urine culture obtained on admission finalized positive for Klebsiella species, consistent with cystitis. Although the patient was asymptomatic, treatment was initiated based on culture results and her history of recurrent UTIs. She was started on cefpodoxime, which she completed as a full 7-day course (7/ days). She remained afebrile throughout, without flank pain or signs of pyelonephritis. No further antibiotics are required at discharge. * The patient remained medically stable. PT evaluation confirmed non-ambulatory functional status requiring hands-on assistance for transfers. Case management confirmed that the patient now consents to facility placement after repeated failed discharges and caregiver inability to manage at home. * On 09/14, the patient was started on quetiapine 25 mg twice daily for management of anxiety, agitation, and fear-based mobility impairment contributing to her recurrent functional decline. The medication has been well tolerated with no excessive sedation, orthostasis, or extrapyramidal symptoms. Continue the current dosing at [facility], with facility provider to adjust based on clinical response and tolerance. No episodes of confusion, hypoxia, fever, chest pain, or acute medical decline occurred during the remainder of her admission. * The chronic scalp wound remained clean and dry; dressing changes were perform ed as ordered. She is now medically optimized and discharged to [facility] for long-term care, strengthening, assistance with ADLs, medication management, and a safe environment for mobility. DISCHARGE MEDICATIONS Metformin 1000 mg PO BID Glipizide 10 mg PO BID Metoprolol succinate 100 mg PO BID Levothyroxine 88 mcg PO daily Citalopram 20 mg PO daily Mirtazapine 30 mg PO HS Furosemide 20 mg PO daily Simvastatin 20 mg PO HS Ferrous gluconate 324 mg PO daily Acetaminophen 650 mg PO q6h PRN pain/fever Quetiapine (Seroquel) 25 mg PO BID Clonidine 0.1 mg PO BID WOUND CARE Chronic scalp wound: * Clean daily with sterile saline * Pat dry * Apply Mepilex dressing and change daily or if soiled L FOLLOW-UP * Facility provider to assume primary care on arrival * Notify PCP as courtesy * Follow urine culture results; treat only if patient becomes symptomatic * Monitor mobility, fall risk, and anxiety * PT/OT as available at facility * Daily BG checks recommended * Continue fall precautions and use of walker with assist CONDITION ON DISCHARGE Medically stable. Functionally dependent for transfers and ADLs. Requires 24-hour supervision and supportive long-term care environment. DISPOSITION Transferred to [facility] ? Long-Term Care / Jail.. Home Meds and New Rx's Prescriptions: New metformin 500 mg Tablet 500 mg PO BID@0800,1700 Qty: 60 0RF clonidine HCl 0.1 mg Tablet 0.1 mg PO BID Qty: 60 0RF quetiapine 25 mg Tablet 25 mg PO Q12H Qty: 30 0RF nystatin 100,000 unit/gram Cream 1 applic topical BID Qty: 30 0RF Continued citalopram 20 mg tablet 20 mg PO DAILY metoprolol succinate 100 mg Tablet Extended Release 24 Hr 100 mg PO BID Qty: 0 0RF mirtazapine 30 mg tablet 30 mg PO HS Patient Comments: TAKE ONE TABLET BY MOUTH EVERY DAY levothyroxine 88 mcg tablet 88 mcg PO DAILY Patient Comments: TAKE ONE TABLET BY MOUTH EVERY MORNING glipizide 10 mg Tablet 10 mg PO BID simvastatin 20 mg tablet 20 mg PO HS acetaminophen 325 mg Tablet 650 mg PO Q6H PRN PRNQty: 30 0RF furosemide 20 mg Tablet 20 mg PO DAILY Qty: 60 1RF ferrous gluconate 324 mg (38 mg iron) Tablet 324 mg PO DAILY Qty: 60 1RF Discontinued metformin 500 mg tablet 1,000 mg PO BID Patient Comments: TAKE TWO TABLETS BY MOUTH TWICE A DAY Discharge Instructions Activity:: Activity as Tolerated Equipment/Supplies:: Walker Diet:: As Tolerated Discharge Orders Discharge Orders: Discharge Order (Routine); Ordered 09/16/25 Ordered By: Talia Reece DS: Summary Time Spent with Patient providing and/or coordinating discharge services: Greater than 30 minutes Status at Discharge Functional status at discharge: uses cane/walker (w max assist - no independent ambulation w walker) Overall status at discharge: patient is back to baseline Mental Status: mental status grossly normal Speech and Movement: speech and movement normal Mood: congruent mood Affect: normal affect Quality:SDOH Health Related Social Needs: Health related social needs daily activities Exam Narrative Exam Narrative: * General: Frail elderly female, calm, no acute distress * Vitals: Stable * CV: Regular rhythm, no murmurs * Resp: Lungs clear * Neuro: A&O x3, no focal deficits * MSK: Marked weakness; unable to ambulate independently * Skin: Chronic scalp wound with clean Mepilex dressing Psych Mental Status: mental status grossly normal Speech and Movement: speech and movement normal Mood: congruent mood Affect: normal affect DS: Data Vitals/I&O Vitals and I&O: Vital Signs Temperature 36.6 C 09/15/25 07:09 Temperature Source Temporal Artery Scan 09/15/25 07:09 Pulse 64 09/15/25 07:09 Pulse 71 09/08/25 14:50 Respiratory Rate 18 09/15/25 07:09 Respiratory Effort Normal, Non-Labored 09/08/25 18:20 Respiratory Depth Normal 09/08/25 18:20 Respiratory Pattern Normal 09/08/25 18:20 Blood Pressure 114/60 09/15/25 07:09 Blood Pressure Mean 78 09/15/25 07:09 Pulse Oximetry 99 09/15/25 07:09 Oxygen Delivery Method Room Air 09/15/25 07:09 Oxygen Flow Rate 0 09/15/25 07:09 Pain Level 0 09/16/25 08:13 Intake & Output 09/15/25 09/15/25 09/16/25 11:59 23:59 11:59 Intake Total Balance Intake: IV Other: Urine Color Yellow Urine Appearance Clear Urine Odor Normal Comment checked and dry Stool Size Small Stool Characteristics Soft Liquid Data Completed and Pending Pending Labs at Discharge: 09/08/25 09/08/25 09/08/25 12:05 13:09 13:53 WBC 9.30 RBC 3.73 L Hgb 11.7 Hct 36.6 MCV 98 H MCH 31.4 MCHC 32.0 RDW 14.7 H Plt Count 172 MPV 9.9 Immature Gran % 0.3 Neutrophils % 64.2 Lymphocytes % 17.6 Monocytes % 4.6 Eosinophils % 12.9 Basophils % 0.4 Nucleated RBC % 0.0 Absolute Neutrophils 5.96 Absolute Lymphocytes 1.64 Absolute Monocytes 0.43 Absolute Eosinophils 1.20 H Absolute Basophils 0.04 Sodium 143 Potassium 5.2 H Chloride 108 H Carbon Dioxide 25.3 Anion Gap 9.7 BUN 25 H Creatinine 1.36 H Est GFR (CKD-EPI 2020) 37.24 Glucose 116 H Calcium 10.0 Magnesium 1.8 Total Bilirubin 0.40 AST 20 ALT 13 Alkaline Phosphatase 149 H Troponin I 6 5 Total Protein 7.7 Albumin 4.2 Urine Color Yellow Urine Clarity Sl Cloudy Urine pH 5.5 Ur Specific [place] 1.020 Urine Protein 30 H Urine Ketones Negative Urine Blood Trace-lysed H Urine Nitrite Positive H Urine Bilirubin Negative Urine Urobilinogen 0.2 Ur Leukocyte Esterase Moderate H Urine RBC 3-5 H Urine WBC 10-20 H Ur Epithelial Cells Rare Urine Crystals Negative Urine Bacteria Many Urine Casts Negative Urine Mucus Negative Ur Culture Indicated? Yes Urine Glucose Negative 09/08/25 09/09/25 09/11/25 14:31 10:08 06:30 WBC 7.79 9.12 RBC 3.63 L 3.48 L Hgb 11.5 10.9 L Hct 35.1 L 34.0 L MCV 97 H 98 H MCH 31.7 31.3 MCHC 32.8 32.1 RDW 14.6 14.3 Plt Count 153 145 MPV 10.2 10.4 Immature Gran % 0.4 0.4 Neutrophils % 67.2 68.5 Lymphocytes % 15.9 15.0 Monocytes % 4.4 4.6 Eosinophils % 11.7 11.1 Basophils % 0.4 0.4 Nucleated RBC % 0.0 0.0 Absolute Neutrophils 5.24 6.24 Absolute Lymphocytes 1.24 1.37 Absolute Monocytes 0.34 0.42 Absolute Eosinophils 0.91 H 1.01 H Absolute Basophils 0.03 0.04 Sodium 141 139 Potassium 4.5 4.4 Chloride 110 H 107 Carbon Dioxide 23.2 24.9 Anion Gap 7.8 7.1 BUN 33 H 49 H Creatinine 1.62 H 1.82 H Est GFR (CKD-EPI 2020) 30.43 26.60 Glucose 225 H 116 H Calcium 9.5 9.8 Magnesium Total Bilirubin AST ALT Alkaline Phosphatase Troponin I Cancelled Total Protein Albumin Urine Color Urine Clarity Urine pH Ur Specific [place] Urine Protein Urine Ketones Urine Blood Urine Nitrite Urine Bilirubin Urine Urobilinogen Ur Leukocyte Esterase Urine RBC Urine WBC Ur Epithelial Cells Urine Crystals Urine Bacteria Urine Casts Urine Mucus Ur Culture Indicated? Urine Glucose 09/12/25 09/13/25 09/14/25 06:10 06:43 07:25 WBC 8.02 6.89 RBC 3.46 L 3.61 L Hgb 11.0 L 11.5 Hct 34.0 L 35.5 L MCV 98 H 98 H MCH 31.8 31.9 MCHC 32.4 32.4 RDW 14.3 13.9 Plt Count 125 L 139 MPV 10.7 10.6 Immature Gran % 0.5 0.6 Neutrophils % 67.6 66.4 Lymphocytes % 15.2 16.4 Monocytes % 6.0 5.1 Eosinophils % 10.1 10.9 Basophils % 0.6 0.6 Nucleated RBC % 0.0 0.0 Absolute Neutrophils 5.42 4.58 Absolute Lymphocytes 1.22 1.13 L Absolute Monocytes 0.48 0.35 Absolute Eosinophils 0.81 H 0.75 H Absolute Basophils 0.05 0.04 Sodium 139 143 142 Potassium 4.0 4.3 4.6 Chloride 109 H 109 H 108 H Carbon Dioxide 23.4 25.5 26.3 Anion Gap 6.6 8.5 7.7 BUN 41 H 33 H 29 H Creatinine 1.70 H 1.47 H 1.46 H Est GFR (CKD-EPI 2020) 28.78 34.04 34.31 Glucose 110 H 130 H 127 H Calcium 9.4 9.6 9.8 Magnesium 1.5 L 2.1 Total Bilirubin AST ALT Alkaline Phosphatase Troponin I Total Protein Albumin Urine Color Urine Clarity Urine pH Ur Specific [place] Urine Protein Urine Ketones Urine Blood Urine Nitrite Urine Bilirubin Urine Urobilinogen Ur Leukocyte Esterase Urine RBC Urine WBC Ur Epithelial Cells Urine Crystals Urine Bacteria Urine Casts Urine Mucus Ur Culture Indicated? Urine Glucose 09/15/25 06:50 WBC RBC Hgb Hct MCV MCH MCHC RDW Plt Count MPV Immature Gran % Neutrophils % Lymphocytes % Monocytes % Eosinophils % Basophils % Nucleated RBC % Absolute Neutrophils Absolute Lymphocytes Absolute Monocytes Absolute Eosinophils Absolute Basophils Sodium 141 Potassium 4.4 Chloride 106 Carbon Dioxide 25.5 Anion Gap 9.5 BUN 28 H Creatinine 1.53 H Est GFR (CKD-EPI 2020) 32.50 Glucose 132 H Calcium 9.5 Magnesium Total Bilirubin AST ALT Alkaline Phosphatase Troponin I Total Protein Albumin Urine Color Urine Clarity Urine pH Ur Specific [place] Urine Protein Urine Ketones Urine Blood Urine Nitrite Urine Bilirubin Urine Urobilinogen Ur Leukocyte Esterase Urine RBC Urine WBC Ur Epithelial Cells Urine Crystals Urine Bacteria Urine Casts Urine Mucus Ur Culture Indicated? Urine Glucose PFSH All Active Problems (Updated 09/11/25 @ 13:58 by Renetta Cheung APRN) UTI (urinary tract infection) (Acute) Acute kidney injury superimposed on CKD (Acute) Klebsiella cystitis (Acute) Pyuria (Acute) On deep vein thrombosis (DVT) prophylaxis (Acute) Hypothyroidism (acquired) (Acute) Non-insulin dependent type 2 diabetes mellitus (Acute) Depression (Chronic) CKD (chronic kidney disease) (Chronic) Obesity (BMI 30.0-34.9) (Acute) (HFpEF) heart failure with preserved ejection fraction (Acute) Atrial fibrillation (Chronic) Anxiety (Chronic) Failure to thrive in adult (Acute) Debility (Acute) Hypotension (Acute) NICOLE (acute kidney injury) (Acute) Ambulatory dysfunction (Chronic) Acute UTI (Acute) General weakness (Acute) Hx of falling (Acute) Medical History (HFpEF) heart failure with preserved ejection fraction Obesity (BMI 30.0-34.9) Intertriginous candidiasis CKD (chronic kidney disease) Depression Non-insulin dependent type 2 diabetes mellitus Hypothyroidism (acquired) CHF (congestive heart failure) related to Hg 5.7. Resolved. Nl echo Acute pain of right hip Acute UTI Osteopenia Glaucoma Trochanteric bursitis Atrial fibrillation with RVR Related hg 5.7, isolated Anemia Leucocytosis Acute CHF DVT prophylaxis Abnormal finding on breast imaging Goiter Pleural effusion Acute dyspnea Squamous cell cancer of scalp and skin of neck Breast cancer Hypercholesterolemia HTN (hypertension) Diabetes mellitus Surgical History History of thoracentesis (~03/2025) S/P skin and subcutaneous tissue surgery S/P breast lumpectomy Social History Smoking/Tobacco Use Status: Never Smoking risk assessment performed?: Yes Alcohol Intake: never Drug use: Never Substance use type: does not use Housing: house Do you feel safe at home: Yes Do you feel safe in your relationship?: Yes Time Spent with Patient Time Spent with Patient: 70-84 minutes4 Time was spent: preparing to see the patient(eg.review tests), ordering medications,tests, procedures, referring, communicating with other health occasional caregiver, indepentently interpreting results, counseling the patient and care coordination
--- NOTE | 2025-09-16 10:04 | W.NUTRFU ---
Date of service: 09/16/25 Time of Service: 10:04 Nutrition Note NOTE: Arlene's intake has been fait to good over the weekend per nursing. Glucose with some significant variance at times but generally <180, especially over the last few days. Arlene continues to be content without additional needed education re: glucose control/diabetes mgt. She will be discharging today to the [facility] and they will continue her glucose mgt and support with regular meals and nourishments. Time Spent in Nutritional Counseling and Treatment: 5 min
[2025-09-16 11:18] VITALS: BP 111/60; PULSE 67; RESP 17; TEMP 35.7; O2SAT 99
--- NOTE | 2025-09-16 12:27 | PT.INTREAT ---
PT Notes Visit Reasons: Failure to Thrive Inpatient Physical Therapy Treatment [facility] Date: 09/16/25 PRECAUTIONS: Fall, fear of movement, standard SUBJECTIVE: Pt asked don?t they usually come up and get you when you leave? PT responded we were helping you get into the wheelchair so you can leave.. OBJECTIVE: General objective:Approached by Nursing staff to assist with transfer to wheelchair for pt to be discharged to [facility]. Pt upright in bed finishing her lunch when PT arrived. present but left room at start of session. ? PAIN: no pain VITALS: Monitored by nursing Therapeutic Activities ([id number]): Direct one-on-one instruction in dynamic activities to improve functional performance. ? Provided skilled cues and instruction on performance and technique throughout. ? BED MOBILITY/TRANSFERS? Supine-sit EOB: Min A of 1. Pt needed assistance with getting her hips closer to the bed? Sit-supine: supervision? Niyah portillo: [id number] to assist with boosting self up in bed ASSESSMENT:?pt was nervous and anxious when PT arrived. Pt was under the impression she was getting transported by bed. Pt was able to bring herself to the EOB with Min A of 1. Pt started to have overwhelming anxiety. Pt reported she couldn?t stand. PT informed pt she wasn?t going to stand. Pt could not listen and started leaning back to bed. DPTS and held her up and PT informed pt she just needed to sit at the EOB. Pt stated but I can?t get to the chair. PT informed her she just needed to sit at the EOB before anything further. Pt anxiety increased and pt started to cry and yell ?I can?t? Pt laid back down. PT had the patient perform glute bridges to boost herself higher in the bed which she was able to perform. Pt remains limited by overwhelming fear despite addition of Seroquel to her scheduled Clonidine. Pt becomes so focused on the next step of task that she is unwilling to perform sitting unsupported and throwing self back onto bed placing staff and herself at risk for injury. PLAN: 1-2x/day, 7 days/week x 1 week. Plan of care has been reviewed with the [employer]OUNDR[employer] FINISHER providing the service under Physical Therapy direction. Initiate Physical Therapy intervention for pain management as needed, strengthening, bed mobility, transfers, gait, balance training, and use of assistive device TREATMENT CODE/TIME: 75701/12:05pm-12:23pm DISCHARGE RECOMMENDATION: SNF to remote computer terminal operator care Written By Med Funes DPTS Supervised By: Ankita Vidal, PT
== END 2025-09-16 13:26 | disposition skilled nursing facility (03) ==
LOC: ER 11:36 → MS 14:26
PROVIDERS: Nurse Practitioner Acute Care; Admitting Provider Family Medicine; Emergency Provider Emergency Medicine; PCP Nurse Practitioner Family; Responsible Provider Nurse Practitioner Family; Visit Provider Family Medicine
DX: R62.7 Adult failure to thrive (principal); F41.9 Anxiety disorder, unspecified; R26.2 Difficulty in walking, not elsewhere classified; I50.30 Unspecified diastolic (congestive) heart failure; I13.0 Hypertensive heart and chronic kidney disease with heart failure and stage 1 through stage 4 chronic kidney disease, or unspecified chronic kidney disease; I48.0 Paroxysmal atrial fibrillation; E03.9 Hypothyroidism, unspecified; E86.0 Dehydration; F32.A Depression, unspecified; E11.22 Type 2 diabetes mellitus with diabetic chronic kidney disease; R53.1 Weakness; M85.80 Other specified disorders of bone density and structure, unspecified site; D64.9 Anemia, unspecified; Z85.3 Personal history of malignant neoplasm of breast; E78.00 Pure hypercholesterolemia, unspecified; Z79.84 Long term (current) use of oral hypoglycemic drugs; N30.00 Acute cystitis without hematuria; B96.1 Klebsiella pneumoniae [K. pneumoniae] as the cause of diseases classified elsewhere; I08.0 Rheumatic disorders of both mitral and aortic valves; N18.9 Chronic kidney disease, unspecified; L65.8 Other specified nonscarring hair loss; Z73.89 Other problems related to life management difficulty; E66.9 Obesity, unspecified; S01.00XD Unspecified open wound of scalp, subsequent encounter; X58.XXXD Exposure to other specified factors, subsequent encounter
CPT/HCPCS: 00123; 36415; 80048; 80053; 87077; 93005; 97110; 97112; 97162; 97166; 97530; 97535; 99285; J1650; 81003; 81015; 83735; 84484; 85025; 87086; 87186; 93010; 99223; 99233; 99239; G0378; J1815; J3475; J3490